=== PATIENT | female | born 1980 | race American Indian/Alaskan Native ===

== ENCOUNTER 2016-12-08 13:35 | Emergency (ER) | payer MEDICAID ==
[2016-12-08 14:08] VITALS: BMI 32.8
--- NOTE | 2016-12-08 15:03 | C.PDOC ---
History Of Present Illness 36 yr old female presents to the ER with complaints of a cough with white yellow sputum, generalized weakness, sore throat, runny nose, body aches and headache for the past 5 days. Patient is also complaining of right knee pain for the past 5 days which is worse when climbing stairs. Patient reports she started taking Clindamycin which was left over and is now having multiple episode of watery diarrhea. Patient denies fever, chills, chest pain, SOB, nausea, vomiting, abdominal pain, back pain, dysuria or hematuria. Time Seen by Provider: 12/08/16 14:02 Chief Complaint (Nursing): Cough, Cold, Congestion History Per: Patient History/Exam Limitations: no limitations Onset/Duration Of Symptoms: Days (5) Location Of Pain: Diffuse Myalgias, Headache Sick Contacts (Context): Family Member(s) Past Medical History Reviewed: Historical Data, Nursing Documentation, Vital Signs Vital Signs: Last Vital Signs Temp 98.4 F 12/08/16 16:09 Pulse 58 L 12/08/16 16:09 Resp 18 12/08/16 16:09 BP 132/84 12/08/16 16:09 Pulse Ox 98 12/08/16 16:09 - Medical History PMH: Anxiety, Asthma, Gastritis, Gall Bladder Disease Surgical History: Cholecystectomy, Endoscopy, Tonsillectomy, ( Myomectomy) - [facility] Procedures DRAINAGE OF PERINEUM SKIN, EXTERNAL APPROACH (04/19/16) EXCISION OF UTERUS, OPEN APPROACH (04/19/16) Family History: States: No Known Family Hx - Social History Hx Tobacco Use: Yes Hx Alcohol Use: No Hx Substance Use: No - Immunization History Hx Tetanus Toxoid Vaccination: No Hx Influenza Vaccination: No Hx Pneumococcal Vaccination: No Review Of Systems Except As Marked, All Systems Reviewed And Found Negative. Constitutional: Positive for: Weakness (generlized ). Negative for: Fever, Chills ENT: Positive for: Nose Discharge, Throat Pain (sore throat ) Cardiovascular: Negative for: Chest Pain Respiratory: Positive for: Cough, Sputum (white yellow sputum). Negative for: Shortness of Breath Gastrointestinal: Positive for: Diarrhea (multiple episodes of watery diarrhea) . Negative for: Nausea, Vomiting, Abdominal Pain Genitourinary: Negative for: Dysuria, Hematuria Musculoskeletal: Positive for: Other ((+) Right knee pain ) Neurological: Positive for: Headache Physical Exam - Physical Exam Appears: Non-toxic, Other (Looks uncomfortable) Skin: Warm, Dry, No Rash Head: Atraumatic, Normacephalic Eye(s): bilateral: Normal Inspection, PERRL Ear(s): Left: TM Obscured By Wax, Right: Other (Wax in canal. TM is clear) Nose: Normal Oral Mucosa: Moist Throat: Normal, No Erythema, No Exudate Neck: Normal, Normal ROM, Supple Chest: Symmetrical, No Tenderness Cardiovascular: Rhythm Regular, No Murmur Respiratory: Normal Breath Sounds, No Rales, No Rhonchi, No Stridor, No Wheezing Extremity: Tenderness (Right Knee - Tenderness to the medial aspects. Full ROM. ), No Calf Tenderness, No Deformity, No Swelling Pulses: Left Dorsalis Pedis: Normal, Right Dorsalis Pedis: Normal Neurological/Psych: Oriented x3, Normal Speech, Normal Motor ED Course And Treatment O2 Sat by Pulse Oximetry: 96 Medical Decision Making Medical Decision Making: PLAN: * POC Urine * * nsaids knee immobilizer Disposition Counseled Patient/Family Regarding: Diagnosis, Need For Followup, Rx Given - Disposition Disposition: HOME/ ROUTINE Disposition Time: 16:33 Condition: GOOD Prescriptions: Naproxen 500 mg PO BID #30 tab Instructions: Upper Respiratory Infection (ED), Knee Pain (ED) Forms: General Discharge Instructions - Clinical Impression Clinical Impression: Upper respiratory infection, Sprain of right knee - 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 - Scribe Statement The provider has reviewed the documentation as recorded by the Scribe Ariela Gunderson All medical record entries made by the Odalisibradha were at my direction and personally dictated by me. I have reviewed the chart and agree that the record accurately reflects my personal performance of the history, physical exam, medical decision making, and the department course for this patient. I have also personally directed, reviewed, and agree with the discharge instructions and disposition.
[2016-12-08] MEDS ORDERED: Naproxen 550 mg Tab PO STA (15:47)
[2016-12-08] MEDS ORDERED: Naproxen 550 mg Tab PO ONE (16:02)
[2016-12-08 16:10] VITALS: BP 132/84; PULSE 58; RESP 18; TEMP 98.4
[2016-12-08 16:32] VITALS: O2SAT 96
== END 2016-12-08 16:49 | disposition home or self-care (01) ==
LOC: C.ER 13:35
DX: J06.9 Acute upper respiratory infection, unspecified (principal); Z72.0 Tobacco use; S83.91XA Sprain of unspecified site of right knee, initial encounter; X58.XXXA Exposure to other specified factors, initial encounter; Y93.9 Activity, unspecified; Y92.9 Unspecified place or not applicable

== ENCOUNTER 2017-03-23 10:53 | Emergency (ER) | payer MEDICAID ==
[2017-03-23 10:53] VITALS: BMI 32.8
[2017-03-23 11:10] VITALS: RESP 20
--- NOTE | 2017-03-23 11:27 | C.PDOC ---
History Of Present Illness 36 y/o female c/o diffuse back pain on right side that feels like pressure; started last night in mid back and radiates up and down back and to middle. pain is worse with movement. pt denies any falls, injury, heavy lifting. pt denies fever and chills, denies abdominal pain, no urinary symptoms. no chest pain, not sob, but painful to take a deep breath. no ocp, no prolonged immobilization, no recent surgery, no leg pain, denies numbness, tingling and weakness, no bladder or bowel dysfunction, no saddle anesthesia. . Time Seen by Provider: 03/23/17 11:08 Chief Complaint (Nursing): Back Pain History Per: Patient History/Exam Limitations: no limitations Onset/Duration Of Symptoms: Days (1) Current Symptoms Are (Timing): Worse Quality Of Discomfort: Pressure Severity: Moderate Associated Symptoms: denies: Incontinence, New Weakness, New Numbness Exacerbating Factor(s): Movement, Sitting Past Medical History Reviewed: Historical Data, Nursing Documentation, Vital Signs Vital Signs: Last Vital Signs Temp 98.9 F 03/23/17 14:08 Pulse 55 L 03/23/17 14:08 Resp 20 03/23/17 14:08 BP 115/76 03/23/17 14:08 Pulse Ox 100 03/23/17 21:39 - Medical History PMH: Anxiety, Asthma, Gastritis, Gall Bladder Disease Denies: Chronic Kidney Disease Surgical History: Cholecystectomy, Endoscopy, Tonsillectomy, ( Myomectomy) Other Surgeries: myomectomy - [facility] Procedures DRAINAGE OF PERINEUM SKIN, EXTERNAL APPROACH (04/19/16) EXCISION OF UTERUS, OPEN APPROACH (04/19/16) Family History: States: Unknown Family Hx - Social History Hx Tobacco Use: Yes Hx Alcohol Use: No Hx Substance Use: No - Immunization History Hx Tetanus Toxoid Vaccination: No Hx Influenza Vaccination: No Hx Pneumococcal Vaccination: No Review Of Systems Constitutional: Negative for: Fever, Chills Cardiovascular: Negative for: Chest Pain Respiratory: Positive for: Other (increased back pain with respiration). Negative for: Cough, Shortness of Breath Gastrointestinal: Positive for: Other (last bm yesterday). Negative for: Nausea , Vomiting, Abdominal Pain Genitourinary: Negative for: Dysuria, Frequency, Incontinence Musculoskeletal: Positive for: Shoulder Pain, Back Pain Skin: Negative for: Rash Neurological: Negative for: Weakness, Numbness Physical Exam - Physical Exam Appears: Other (overweight female in painful distress, crying. ) Skin: Warm, Dry Head: Atraumatic, Normacephalic Neck: Normal ROM, No Midline Cervical Tenderness, Supple Chest: Symmetrical, No Deformity, No Tenderness Cardiovascular: Rhythm Regular, No Murmur Respiratory: Normal Breath Sounds, No Rales, No Rhonchi, No Wheezing Gastrointestinal/Abdominal: Soft, No Tenderness Back: Normal Inspection, Paraspinal Tenderness, Other (entire right side backend python developer, most in thoracic and lumbar area; tender paraspinal area and rhomboid area. 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 pain worse with movement,. will order more analgesics. 145 pm pt with more relief after percocet, able to stand up, some residual lower back pain. will d/c home with naproxen and flexeril. Disposition Counseled Patient/Family Regarding: Diagnosis, Need For Followup, Rx Given - Disposition Referrals: [facility] [Outside] [facility] [Outside] Disposition: HOME/ ROUTINE Disposition Time: 13:46 Condition: IMPROVED Additional Instructions: Thank you for letting us take care of you today. Your provider was Nataly MENDOZA. You were treated for muscle spasm and back pain. The emergency medical care you received today was directed at your acute symptoms. If you were prescribed any medication, please fill it and take as directed. It may take several days for your symptoms to resolve. Return to the Emergency Department if your symptoms worsen, do not improve, or if you have any other problems. Please contact your doctor or call one of the physicians/clinics you have been referred to that are listed on the Patient Visit Information form that is included in your discharge packet. Bring any paperwork you were given at discharge with you along with any medications you are taking to your follow up visit. Our treatment cannot replace ongoing medical care by a primary care provider (PCP) outside of the emergency department. Thank you for allowing the [facility] team to be part of your care today. Prescriptions: Cyclobenzaprine [Cyclobenzaprine HCl] 10 mg PO Q8 #9 tab Ibuprofen [Motrin] 600 mg PO TID #30 tab Instructions: Acute Low Back Pain (ED), Muscle Spasm (ED) Forms: General Discharge Instructions - Clinical Impression Clinical Impression: Low back pain, Muscle spasm of back
[2017-03-23 12:07] LABS: RBC URINE 2 /hpf (0-3); URINE BILIRUBIN NEGATIVE (NEGATIVE); URINE BLOOD NEGATIVE (NEGATIVE); URINE COLOR Yellow (YELLOW); URINE GLUCOSE (UA) NORMAL (Normal); URINE KETONE NEGATIVE (NEGATIVE); URINE LEUKOCYTE ESTERASE NEG Leu/uL (Negative); URINE PROTEIN NEGATIVE (NEGATIVE); URINE UROBILINOGEN NORMAL mg/dL (0.2-1.0); WBC URINE 1 /hpf (0-5)
[2017-03-23] MEDS ORDERED: Oxycodone/Acetaminophen 5/325 mg Tab PO STA (12:37)
[2017-03-23] MEDS ORDERED: Oxycodone/Acetaminophen 5/325 mg Tab ONE (12:45)
[2017-03-23 14:09] VITALS: BP 115/76; PULSE 55; TEMP 98.9
[2017-03-23 21:40] VITALS: O2SAT 100
== END 2017-03-23 14:11 | disposition home or self-care (01) ==
LOC: C.ER 10:53
DX: M62.830 Muscle spasm of back (principal); M54.5 Low back pain
CPT/HCPCS: 81001; 96372; 99284; J1885

== ENCOUNTER 2017-08-22 17:06 | Inpatient (IN) | payer MEDICAID ==
[2017-08-22 17:07] VITALS: BMI 32.8
[2017-08-22 18:07] LABS: BASO # 0.1 K/uL (0.0-0.2); BASO % 0.5 % (0.0-2.0); EOS % 0.1 % (0.0-4.0); HEMATOCRIT 37.3 % (34.0-47.0); LYMPH # 1.3 K/uL (1.0-4.3); LYMPH % 12.6 % (20.0-40.0); MEAN CORPUSCULAR HEMOGLOBIN 31.5 pg (27.0-31.0); MEAN CORPUSCULAR HGB CONC 33.5 g/dL (33.0-37.0); MEAN PLATELET VOLUME 7.8 fL (7.2-11.7); MONO # 0.3 K/uL (0.0-0.8); MONO % 2.6 % (0.0-10.0); RED CELL DISTRIBUTION WIDTH 13.2 % (11.5-14.5); WHITE BLOOD COUNT 10.7 K/uL (4.8-10.8)
[2017-08-22 18:16] LABS: ALB/GLOB RATIO 1.3 (1.0-2.1); ALKALINE PHOSPHATASE 52 U/L (38-126); ALT/SGPT 30 U/L (9-52); AST/SGOT 20 U/L (14-36); BILIRUBIN,TOTAL 0.6 mg/dL (0.2-1.3); BLOOD UREA NITROGEN 13 mg/dL (7-17); CALCIUM 8.8 mg/dl (8.6-10.4); CARBON DIOXIDE 22 mmol/L (22-30); CHLORIDE 101 mmol/L (98-107); GFR AFRICAN-AMERICAN > 60; GLUCOSE,RANDOM 109 mg/dL (65-105); POTASSIUM 3.2 mmol/L (3.6-5.2); SODIUM 132 mmol/L (132-148); TOTAL PROTEIN 7.7 g/dL (6.3-8.3)
[2017-08-22] MEDS ORDERED: Albuterol 0.083% Inhal Sol (2.5 mg/3 mL) UD IH STA (18:29)
[2017-08-22] MEDS ORDERED: Albuterol 0.083% Inhal Sol (2.5 mg/3 mL) UD ONE (18:36)
--- NOTE | 2017-08-22 18:52 | C.PDOC ---
History Of Present Illness <Suri Norman - Last Filed: 08/22/17 19:07> <Denys Scott - Last Filed: 08/22/17 21:23> 37 y/o female with PMHx of Asthma and anxiety presents to ED with complaints of sob, cough, fever, chills, and body aches for 1 week. Notes she had cough for two weeks, went to see her PMD last week, had RLL PNA and given Levaquin. Symptoms persists prompting ED visit. (Suri Norman) History Per: Patient History/Exam Limitations: no limitations Onset/Duration Of Symptoms: Days Current Symptoms Are (Timing): Still Present <Suri Norman - Last Filed: 08/22/17 19:07> <Denys Scott - Last Filed: 08/22/17 21:23> Time Seen by Provider: 08/22/17 17:42 Chief Complaint (Nursing): Shortness Of Breath Past Medical History Reviewed: Historical Data, Nursing Documentation, Vital Signs - Medical History PMH: Anxiety, Asthma, Gastritis, Gall Bladder Disease Surgical History: Cholecystectomy, Endoscopy, Tonsillectomy, ( Myomectomy) Family History: States: No Known Family Hx - Social History Hx Tobacco Use: Yes Hx Alcohol Use: No Hx Substance Use: No - Immunization History Hx Tetanus Toxoid Vaccination: No Hx Influenza Vaccination: No Hx Pneumococcal Vaccination: No <Suri Norman - Last Filed: 08/22/17 19:07> Vital Signs: Last Vital Signs Temp 98.3 F 08/22/17 17:14 Pulse 96 H 08/22/17 20:07 Resp 20 08/22/17 20:07 BP 123/78 08/22/17 20:07 Pulse Ox 100 08/22/17 20:07 - [facility] Procedures DRAINAGE OF PERINEUM SKIN, EXTERNAL APPROACH (04/19/16) EXCISION OF UTERUS, OPEN APPROACH (04/19/16) Review Of Systems Constitutional: Positive for: Fever Respiratory: Positive for: Cough, Shortness of Breath Gastrointestinal: Negative for: Nausea, Vomiting Skin: Negative for: Rash Neurological: Negative for: Weakness, Numbness <Suri Norman - Last Filed: 08/22/17 19:07> Physical Exam - Physical Exam Appears: Non-toxic, Other (Acute respiratory distress) Skin: Normal Color, Warm, Dry, No Rash Head: Atraumatic, Normacephalic Eye(s): bilateral: Normal Inspection, EOMI Oral Mucosa: Moist Neck: Normal ROM, Supple Chest: Symmetrical Cardiovascular: Rhythm Regular Respiratory: Decreased Breath Sounds, No Rales, No Rhonchi, No Wheezing, Other ( Tachypneic) Gastrointestinal/Abdominal: Soft, No Tenderness, No Guarding, No Rebound Neurological/Psych: Oriented x3, Normal Speech (Speaking in full sentences) <Suri Norman - Last Filed: 08/22/17 19:07> ED Course And Treatment - Laboratory Results Result Diagrams: 08/22/17 18:00 08/22/17 18:00 O2 Sat by Pulse Oximetry: 99 (RA) Pulse Ox Interpretation: Normal - Radiology CXR: Interpreted by Me, Viewed By Me CXR Interpretation: Yes: No Acute Disease Progress Note: Case endorsed to Dr Scott, agreed upon plan and treatment. <Suri Norman - Last Filed: 08/22/17 19:07> - Laboratory Results Result Diagrams: 08/22/17 18:00 08/22/17 18:00 - CT Scan/US Chest Other Rad Studies (CT/US): Read By Radiologist CT/US Interpretation: IMPRESSION: No pulmonary embolism or other acute finding in the chest. 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 - Scribe Statement The provider has reviewed the documentation as recorded by the Scribe <Suri Norman - Last Filed: 08/22/17 19:07> <Denys Scott - Last Filed: 08/22/17 21:23> - Scribe Statement Cammy Vazquez All medical record entries made by the Scribe were at my direction and personally dictated by me. I have reviewed the chart and agree that the record accurately reflects my personal performance of the history, physical exam, medical decision making, and the department course for this patient. I have also personally directed, reviewed, and agree with the discharge instructions and disposition. (Suri Norman)
[2017-08-22 18:53] LABS: RBC URINE 1 /hpf (0-3); URINE BACTERIA RARE (<OCC); URINE BILIRUBIN NEGATIVE (NEGATIVE); URINE BLOOD NEGATIVE (NEGATIVE); URINE COLOR Yellow (YELLOW); URINE GLUCOSE (UA) NORMAL (Normal); URINE KETONE NEGATIVE (NEGATIVE); URINE PROTEIN 1+ mg/dL (NEGATIVE); URINE UROBILINOGEN NORMAL mg/dL (0.2-1.0); WBC URINE 3 /hpf (0-5)
[2017-08-22 18:55] LABS: URINE LEUKOCYTE ESTERASE NEG Leu/uL (Negative)
[2017-08-22] MEDS ORDERED: Potassium Chloride 20 mEq ER Tab PO STA (18:57)
[2017-08-22] MEDS ORDERED: Azithromycin 500mg/250ML NS 500 MG/250 ML BAG IV ONE (19:15)
[2017-08-22] MEDS ORDERED: Enoxaparin 40 mg Syringe SC STA (19:20)
[2017-08-22] MEDS ORDERED: Iodixanol 320 mg/ml 150 ml Bottle IV ONE (19:43)
[2017-08-22] MEDS ORDERED: Potassium Chloride 20 mEq ER Tab PO ONE ×2 (19:44→19:57)
[2017-08-22] MEDS ORDERED: Enoxaparin 100 mg Syringe SC STA (19:49)
[2017-08-22] MEDS ORDERED: Albuterol-Ipratrop 3 mg / 0.5 (3 ml) UD ONE (22:26)
[2017-08-23] MEDS ORDERED: Albuterol-Ipratrop 3 mg / 0.5 (3 ml) UD ONE ×5 (00:07→15:46)
[2017-08-23] MEDS: Albuterol-Ipratrop 3 mg / 0.5 (3 ml) UD INH SCH ×5 (00:12→15:45)
--- NOTE | 2017-08-23 08:22 | RAD ---
HISTORY: SOB COMPARISON: 04/27/2016 TECHNIQUE: Chest PA and lateral FINDINGS: LUNGS: No active pulmonary disease. PLEURA: No significant pleural effusion identified. No pneumothorax apparent. CARDIOVASCULAR: Normal. OSSEOUS STRUCTURES: No significant abnormalities. VISUALIZED UPPER ABDOMEN: Normal. OTHER FINDINGS: None. IMPRESSION: No active disease.
--- NOTE | 2017-08-23 09:17 | CT ---
PROCEDURE: CT Chest with contrast (Pulmonary Angiogram) HISTORY: sob COMPARISON: None available. TECHNIQUE: Axial computed tomography images were obtained of the chest in the pulmonary arterial phase of enhancement. Coronal and sagittal reformatted images were created and reviewed. Intravenous contrast dose: 100 mL Visipaque 320 Radiation dose: Total exam DLP = 512.28 mGy-cm. This CT exam was performed using one or more of the following dose reduction techniques: Automated exposure control, adjustment of the mA and/or kV according to patient size, and/or use of iterative reconstruction technique. FINDINGS: PULMONARY ARTERIES: Unremarkable. No pulmonary embolism. AORTA: No acute findings. No thoracic aortic aneurysm. LUNGS: Unremarkable. No nodule, mass or pulmonary consolidation. PLEURAL SPACES: Unremarkable. No effusion or pneuomothorax. HEART: Unremarkable. No cardiomegaly. No significant pericardial effusion. LYMPH NODES: No lymphadenopathy. BONES, CHEST WALL: Unremarkable. No fracture or destructive lesion OTHER FINDINGS: Status post cholecystectomy. IMPRESSION: Unremarkable CT pulmonary angiogram. No pulmonary embolus. Preliminary interpretation of this examination was reported by [facility] at 9:19 p.m. on 08/22/2017. There is concurrence of this report with the preliminary interpretation.
[2017-08-23 09:22] LABS: BASO % 0.1 % (0.0-2.0); EOS % 0.1 % (0.0-4.0); HEMATOCRIT 33.5 % (34.0-47.0); LYMPH # 0.9 K/uL (1.0-4.3); LYMPH % 8.4 % (20.0-40.0); MEAN CELL VOLUME 93.8 fL (81.0-99.0); MEAN CORPUSCULAR HEMOGLOBIN 31.9 pg (27.0-31.0); MONO # 0.4 K/uL (0.0-0.8); MONO % 3.7 % (0.0-10.0); PLATELET COUNT 290 K/uL (130-400); RED CELL DISTRIBUTION WIDTH 13.3 % (11.5-14.5); WHITE BLOOD COUNT 10.8 K/uL (4.8-10.8)
[2017-08-23 09:35] LABS: ALB/GLOB RATIO 0.9 (1.0-2.1); ALKALINE PHOSPHATASE 47 U/L (38-126); ALT/SGPT 29 U/L (9-52); AST/SGOT 12 U/L (14-36); BILIRUBIN,TOTAL 0.3 mg/dL (0.2-1.3); BLOOD UREA NITROGEN 9 mg/dL (7-17); CALCIUM 8.4 mg/dl (8.6-10.4); CARBON DIOXIDE 21 mmol/L (22-30); CHLORIDE 106 mmol/L (98-107); GFR AFRICAN-AMERICAN > 60; GLUCOSE,RANDOM 99 mg/dL (65-105); POTASSIUM 3.6 mmol/L (3.6-5.2); SODIUM 132 mmol/L (132-148); TOTAL PROTEIN 7.7 g/dL (6.3-8.3)
[2017-08-23 09:43] LABS: NEUTROPHIL 86 % (50-75); TOTAL CELLS COUNTED 100
[2017-08-23] MEDS: Azithromycin 500 MG in Sodium Chloride 0.9% 250 ML IVPB SCH (10:36)
[2017-08-23] MEDS: Enoxaparin 40 mg Syringe SC SCH (10:36)
[2017-08-23 13:45] VITALS: RESP 20
--- NOTE | 2017-08-23 17:12 | CP.PCM.PN ---
Subjective - Date & Time of Evaluation Date of Evaluation: 08/23/17 Time of Evaluation: 10:00 - Subjective Subjective: PGY3 on medicine Dr. Diehl service: 37F PMhx astham and anxiety compalins SOB, cough, generalized body pain and fever for the past week. Pt said she went to PMD last week and received Levaquin for a week without relief. Patient said she did not receive flu shot and smokes 6 cigarettes a day for past 16 years. Patient had gallbladder removed in 1998 and fibroid removed in 2015. Currently pt complains of generalized body pain and feeling anxious about her condition. Objective - Vital Signs/Intake and Output Vital Signs (last 24 hours): Temp Pulse Resp BP Pulse Ox 97.9 F 74 20 104/55 L 100 08/23/17 06:43 08/23/17 15:45 08/23/17 13:44 08/23/17 13:44 08/23/17 13:44 - Medications Medications: Current Medications Acetaminophen (Tylenol 325mg Tab) 650 mg PO Q4 [facility] Last Admin: 08/23/17 12:56 Dose: Not Given Albuterol/Ipratropium (Duoneb 3 Mg/0.5 Mg (3 Ml) Ud) 3 ml INH RQ4 [facility] Last Admin: 08/23/17 15:45 Dose: 3 ml Alprazolam (Xanax) 0.5 mg PO Q12 [facility] Last Admin: 08/23/17 10:15 Dose: 0.5 mg Enoxaparin Sodium (Lovenox) 40 mg SC DAILY [facility] Last Admin: 08/23/17 10:36 Dose: 40 mg Azithromycin 500 mg/ Sodium (Chloride) 250 mls @ 250 mls/hr IVPB DAILY [facility] Last Admin: 08/23/17 10:36 Dose: 250 mls/hr Ondansetron HCl (Zofran Inj) 4 mg IVP Q8 PRN PRN Reason: Nausea/Vomiting Oseltamivir Phosphate (Tamiflu Cap) 75 mg PO BID [facility] Stop: 08/27/17 22:02 Last Admin: 08/23/17 10:36 Dose: 75 mg Tramadol HCl (Ultram) 50 mg PO TID PRN PRN Reason: Pain, moderate (4-7) Last Admin: 08/23/17 12:11 Dose: 50 mg Zolpidem Tartrate (Ambien) 5 mg PO HS PRN PRN Reason: Insomnia - Labs Labs: 08/23/17 09:16 08/23/17 09:16 - Constitutional Appears: Non-toxic, No Acute Distress - Head Exam Head Exam: NORMOCEPHALIC - Eye Exam Eye Exam: Normal appearance Pupil Exam: NORMAL ACCOMODATION - Respiratory Exam Respiratory Exam: Decreased Breath Sounds, NORMAL BREATHING PATTERN. absent: Wheezes - Cardiovascular Exam Cardiovascular Exam: REGULAR RHYTHM, +S1, +S2 - GI/Abdominal Exam GI & Abdominal Exam: Soft, Normal Bowel Sounds - Neurological Exam Neurological Exam: Alert, Awake, Oriented x3 - Psychiatric Exam Psychiatric exam: Anxious - Skin Skin Exam: Intact Assessment and Plan - Assessment and Plan (Free Text) Assessment: Pneumonia/possible influenza Chest CT and xray negative for acute disease. Zithromax 500mg IV daily started 08/23. Tamiflu 75mg PO BID started 08/23. Duoneb q4. F/U flu. F/U cultures. Hx of anxiety Continue home med: Xanax 0.5mg PO q12H. Prophylactic measure Lovenox, pepcid, SCD. Management as per Dr. Diehl.
[2017-08-23] MEDS ORDERED: Enoxaparin 40 mg Syringe SC ONE (22:00)
[2017-08-24] MEDS: Albuterol-Ipratrop 3 mg / 0.5 (3 ml) UD INH SCH ×5 (01:42→16:03)
--- NOTE | 2017-08-24 06:06 | HP ---
HISTORY OF PRESENT ILLNESS: Ms. Walker is a 37-year-old female admitted to the hospital with complaint of weakness, fatigue, tiredness, body aches, fever. The patient came to the ER, advised admission, possible nausea, weakness, body aches. PHYSICAL EXAMINATION: GENERAL: The patient is awake, alert. VITAL SIGNS: Temperature 101, pulse is 90. HEENT: Normal limit. NECK: Supple. CHEST: Symmetrical. HEART: Regular. ABDOMEN: Soft. EXTREMITIES: No edema. IMPRESSION: The patient suffers atypical pneumonia, possible flu. . bedrest, IV antibiotic. Tamiflu. Viviane Diehl MD
[2017-08-24 08:06] LABS: BASO % 0.3 % (0.0-2.0); EOS % 0.2 % (0.0-4.0); HEMATOCRIT 32.6 % (34.0-47.0); LYMPH # 3.9 K/uL (1.0-4.3); LYMPH % 40.9 % (20.0-40.0); MEAN CORPUSCULAR HEMOGLOBIN 31.8 pg (27.0-31.0); MEAN CORPUSCULAR HGB CONC 33.2 g/dL (33.0-37.0); MEAN PLATELET VOLUME 8.7 fL (7.2-11.7); MONO # 0.6 K/uL (0.0-0.8); MONO % 5.8 % (0.0-10.0); NRBC % 0.1 % (0.0-2.0); RED CELL DISTRIBUTION WIDTH 13.5 % (11.5-14.5); WHITE BLOOD COUNT 9.6 K/uL (4.8-10.8)
[2017-08-24 08:14] LABS: MEAN CELL VOLUME 95.8 fL (81.0-99.0)
[2017-08-24 08:25] LABS: ALB/GLOB RATIO 1.2 (1.0-2.1); ALKALINE PHOSPHATASE 39 U/L (38-126); ALT/SGPT 28 U/L (9-52); AST/SGOT 11 U/L (14-36); BILIRUBIN,TOTAL 0.4 mg/dL (0.2-1.3); BLOOD UREA NITROGEN 14 mg/dL (7-17); CALCIUM 7.8 mg/dl (8.6-10.4); CARBON DIOXIDE 25 mmol/L (22-30); CHLORIDE 108 mmol/L (98-107); GFR AFRICAN-AMERICAN > 60; GLUCOSE,RANDOM 88 mg/dL (65-105); POTASSIUM 3.9 mmol/L (3.6-5.2); SODIUM 139 mmol/L (132-148); TOTAL PROTEIN 5.7 g/dL (6.3-8.3)
--- NOTE | 2017-08-24 09:08 | CP.PCM.PN ---
Subjective - Date & Time of Evaluation Date of Evaluation: 08/24/17 Time of Evaluation: 10:00 - Subjective Subjective: Dr. Diehl note: Patient seen and examined in room. She is complaining of coughing up clear sputum no fever or chills but is very anxious. Objective - Vital Signs/Intake and Output Vital Signs (last 24 hours): Temp Pulse Resp BP Pulse Ox 98 F 63 20 110/70 97 08/24/17 08:01 08/24/17 08:01 08/24/17 08:01 08/24/17 08:01 08/24/17 08:01 Intake and Output: 08/24/17 08/24/17 06:59 18:59 Intake Total 350 Balance 350 - Medications Medications: Current Medications Acetaminophen (Tylenol 325mg Tab) 650 mg PO Q4 PRN PRN Reason: FOR PAIN Albuterol/Ipratropium (Duoneb 3 Mg/0.5 Mg (3 Ml) Ud) 3 ml INH RQ4 [facility] Last Admin: 08/24/17 07:31 Dose: Not Given Alprazolam (Xanax) 0.5 mg PO Q12 [facility] Last Admin: 08/23/17 21:05 Dose: 0.5 mg Enoxaparin Sodium (Lovenox) 40 mg SC DAILY [facility] Last Admin: 08/23/17 10:36 Dose: 40 mg Famotidine (Pepcid) 20 mg PO BID [facility] Last Admin: 08/23/17 19:07 Dose: 20 mg Azithromycin 500 mg/ Sodium (Chloride) 250 mls @ 250 mls/hr IVPB DAILY [facility] Last Admin: 08/23/17 10:36 Dose: 250 mls/hr Ondansetron HCl (Zofran Inj) 4 mg IVP Q8 PRN PRN Reason: Nausea/Vomiting Oseltamivir Phosphate (Tamiflu Cap) 75 mg PO BID [facility] Stop: 08/27/17 22:02 Last Admin: 08/23/17 19:07 Dose: 75 mg Tramadol HCl (Ultram) 50 mg PO TID PRN PRN Reason: Pain, moderate (4-7) Last Admin: 08/23/17 12:11 Dose: 50 mg Zolpidem Tartrate (Ambien) 5 mg PO HS PRN PRN Reason: Insomnia Last Admin: 08/24/17 01:15 Dose: 5 mg - Labs Labs: 08/24/17 07:54 08/24/17 07:54 - Constitutional Appears: Non-toxic, No Acute Distress - Eye Exam Eye Exam: Normal appearance - Respiratory Exam Respiratory Exam: Clear to Ausculation Bilateral. absent: Rales, Rhonchi, Wheezes - Cardiovascular Exam Cardiovascular Exam: REGULAR RHYTHM, RRR, +S1, +S2. absent: Gallop, Rubs - GI/Abdominal Exam GI & Abdominal Exam: Soft, Normal Bowel Sounds. absent: Tenderness - Extremities Exam Extremities Exam: Normal Inspection. absent: Pedal Edema - Back Exam Back Exam: NORMAL INSPECTION - Psychiatric Exam Psychiatric exam: Normal Affect, Normal Mood - Skin Skin Exam: Normal Color Assessment and Plan - Assessment and Plan (Free Text) Assessment: Pneumonia/possible influenza 08/24: Patient discharged home with Z-pack, Tamiflu, medrol dose pack, duoneb and Robitussin for cough. She will need to see her PMD for follow next week. Chest CT and xray negative for acute disease. Zithromax 500mg IV daily started 08/23. Tamiflu 75mg PO BID started 08/23. Duoneb q4. F/U flu. F/U cultures. Hx of anxiety Continue home med: Xanax 0.5mg PO q12H. Prophylactic measure Lovenox, pepcid, SCD. Management as per Dr. Diehl.
[2017-08-24] MEDS: Enoxaparin 40 mg Syringe SC SCH (10:01)
[2017-08-24] MEDS ORDERED: Acetylcysteine 20% Inhal Soln (4ml) INH STA (10:15)
[2017-08-24] MEDS ORDERED: Albuterol-Ipratrop 3 mg / 0.5 (3 ml) UD INH STA (10:15)
[2017-08-24] MEDS: Azithromycin 500 MG in Sodium Chloride 0.9% 250 ML IVPB SCH (10:48)
[2017-08-24 17:02] VITALS: BP 109/72; PULSE 76; TEMP 98.2; O2SAT 99
== END 2017-08-24 18:58 | disposition home or self-care (01) | DRG 90 ==
LOC: C.ER 17:06 → C.9E 19:16 → C.3T 08-23 19:30
PROVIDERS: ADMIT Internal Medicine Pulmonary Disease; ATTEND Internal Medicine Pulmonary Disease
DX: J11.00 Influenza due to unidentified influenza virus with unspecified type of pneumonia (principal); J45.901 Unspecified asthma with (acute) exacerbation; F41.9 Anxiety disorder, unspecified; Z90.49 Acquired absence of other specified parts of digestive tract

== ENCOUNTER 2017-11-20 14:53 | Emergency (ER) | payer SELFPAY ==
[2017-11-20 14:54] VITALS: BMI 32.8
[2017-11-20] MEDS ORDERED: Sodium Chloride 0.9% 1,000 ML IV ONE (16:23)
[2017-11-20] MEDS ORDERED: DiphenhydrAMINE 50 mg/ml Inj IVP STA ×2 (16:32→19:25)
[2017-11-20] MEDS ORDERED: Sodium Chloride 0.9% 1,000 ML ONE (16:42)
[2017-11-20] MEDS ORDERED: DiphenhydrAMINE 50 mg/ml Inj ONE ×2 (16:42→19:36)
[2017-11-20] MEDS ORDERED: Morphine 4 MG/ML VIAL ONE ×2 (16:42→18:21)
[2017-11-20 16:50] LABS: BASO % 0.7 % (0.0-2.0); EOS # 0.1 K/uL (0.0-0.7); EOS % 2.3 % (0.0-4.0); HCG,QUALITATIVE URINE NEGATIVE (NEGATIVE); HEMOGLOBIN 12.7 g/dL (11.0-16.0); LYMPH # 2.6 K/uL (1.0-4.3); LYMPH % 45.5 % (20.0-40.0); MEAN CELL VOLUME 92.6 fL (81.0-99.0); MEAN CORPUSCULAR HEMOGLOBIN 31.9 pg (27.0-31.0); MEAN CORPUSCULAR HGB CONC 34.4 g/dL (33.0-37.0); MONO # 0.5 K/uL (0.0-0.8); MONO % 8.3 % (0.0-10.0); NEUT # 2.5 K/uL (1.8-7.0); NEUT % 43.2 % (50.0-75.0); RBC 3.99 Mil/uL (3.80-5.20); RED CELL DISTRIBUTION WIDTH 13.5 % (11.5-14.5); WHITE BLOOD COUNT 5.8 K/uL (4.8-10.8)
[2017-11-20 16:57] LABS: SQUAMOUS EPITHIAL 2 /hpf (0-5); URINE BACTERIA RARE (<OCC); URINE BILIRUBIN NEGATIVE (NEGATIVE); URINE BLOOD NEGATIVE (NEGATIVE); URINE CLARITY Clear (Clear); URINE COLOR Straw (YELLOW); URINE GLUCOSE (UA) NORMAL (Normal); URINE NITRATE NEGATIVE (NEGATIVE); URINE PROTEIN NEGATIVE (NEGATIVE); URINE UROBILINOGEN NORMAL mg/dL (0.2-1.0)
[2017-11-20 16:59] LABS: URINE LEUKOCYTE ESTERASE NEGATIVE Leu/uL (Negative)
[2017-11-20 17:01] LABS: ALBUMIN 4.2 g/dL (3.5-5.0); CALCIUM 9.1 mg/dl (8.6-10.4); GFR AFRICAN-AMERICAN > 60; GFR NON-AFRICAN AMERICAN > 60; LIPASE 104 U/L (23-300)
[2017-11-20 17:11] LABS: ALT/SGPT 32 U/L (9-52); AST/SGOT 24 U/L (14-36); BLOOD UREA NITROGEN 8 mg/dL (7-17)
--- NOTE | 2017-11-20 17:40 | C.PDOC ---
History Of Present Illness 37-year-old female presents to the ED for evaluation of nausea, vomiting, diarrhea and abdominal pain which began on 11/14. Patient was evaluated by her PMD, Dr. Diehl, yesterday and was prescribed Zofran and Protonix. Patient has been taking the medicine without relief. Patient admits to experiencing prior episode of same symptoms several years ago and was able to find relief from Protonix PO. Patient's last endoscopy was 5 years ago. She denies fever, chills , dysuria, hematuria. Time Seen by Provider: 11/20/17 15:53 Chief Complaint (Nursing): GI Problem History Per: Patient History/Exam Limitations: no limitations Onset/Duration Of Symptoms: Days Current Symptoms Are (Timing): Still Present Severity: Moderate Location Of Pain/Discomfort: Diffuse Quality Of Discomfort: "Pain" Associated Symptoms: Nausea, Vomiting, Diarrhea. denies: Fever, Chills, Urinary Symptoms Additional History Per: Patient Abnormal Vaginal Bleeding: No Past Medical History Reviewed: Historical Data, Nursing Documentation, Vital Signs Vital Signs: Last Vital Signs Temp 98.4 F 11/20/17 15:00 Pulse 58 L 11/20/17 18:13 Resp 16 11/20/17 18:13 BP 114/72 11/20/17 18:13 Pulse Ox 100 11/20/17 18:13 - Medical History PMH: Anxiety, Asthma, Gastritis, Gall Bladder Disease Surgical History: Cholecystectomy, Endoscopy, Tonsillectomy, ( Myomectomy) - [facility] Procedures DRAINAGE OF PERINEUM SKIN, EXTERNAL APPROACH (04/19/16) EXCISION OF UTERUS, OPEN APPROACH (04/19/16) Family History: States: No Known Family Hx - Social History Hx Tobacco Use: Yes Hx Alcohol Use: No Hx Substance Use: No - Immunization History Hx Tetanus Toxoid Vaccination: No Hx Influenza Vaccination: No Hx Pneumococcal Vaccination: No Review Of Systems Except As Marked, All Systems Reviewed And Found Negative. Constitutional: Negative for: Fever, Chills Cardiovascular: Negative for: Chest Pain, Palpitations Respiratory: Negative for: Shortness of Breath Gastrointestinal: Positive for: Nausea, Vomiting, Abdominal Pain, Diarrhea Genitourinary: Negative for: Dysuria, Hematuria Skin: Negative for: Rash Physical Exam - Physical Exam Appears: Well, Non-toxic, Other (uncomfortable, in moderate pain, actively vomiting ) Skin: Normal Color, Warm, Dry, No Rash Head: Normacephalic Eye(s): bilateral: Normal Inspection Oral Mucosa: Moist Neck: Supple Cardiovascular: Rhythm Regular Respiratory: Normal Breath Sounds, No Rales, No Rhonchi, No Wheezing Gastrointestinal/Abdominal: Bowel Sounds, Soft, Tenderness (to epigastric and right periumbilical areas, (-) McBurney's, (-) Mtz's), No Guarding, No Rebound Back: No CVA Tenderness Extremity: Normal ROM Neurological/Psych: Oriented x3 ED Course And Treatment - Laboratory Results Result Diagrams: 11/20/17 16:44 11/20/17 16:44 O2 Sat by Pulse Oximetry: 99 (on RA) Pulse Ox Interpretation: Normal Progress Note: Bloodwork, UA and CT scan abd/pelvis ordered and reviewed. Patient given IV NS bolus, IV morphine, IV Zofran, IV Benadryl. Disposition - Disposition Disposition Time: 19:00 Condition: STABLE Forms: [employer] (Egyptian) - Clinical Impression Clinical Impression: Abdominal pain, Nausea and vomiting, Diarrhea - Scribe Statement The provider has reviewed the documentation as recorded by the Scribe (Megan Patel) Provider Attestation: All medical record entries made by the Scribe were at my direction and personally dictated by me. I have reviewed the chart and agree that the record accurately reflects my personal performance of the history, physical exam, medical decision making, and the department course for this patient. I have also personally directed, reviewed, and agree with the discharge instructions and disposition. Physician Patient Turnover Patient Signed Over To: Denys Scott Handoff Comments: patient pending reeval, CT scan abd/pelvis
[2017-11-20] MEDS ORDERED: Iohexol 300 100 ML IJ ONE (18:08)
--- NOTE | 2017-11-20 19:40 | CT ---
EXAM: CT Abdomen and Pelvis With Intravenous Contrast EXAM DATE/TIME: Exam ordered 11/20/2017 5:31 PM CLINICAL HISTORY: 37 years old, female; Pain; Abdominal pain; Localized; Right lower quadrant (rlq); Prior surgery; Surgery date: 6+ months; Surgery type: Cholecystectomy/uterine fibroid removal; Patient HX: H/o cholecystectomy/uterine fibroid removal; Additional info: Abdominal pain, vomiting, diarrhea TECHNIQUE: Axial computed tomography images of the abdomen and pelvis with intravenous contrast. All CT scans at this facility use one or more dose reduction techniques, viz.: automated exposure control; ma/kV adjustment per patient size (including targeted exams where dose is matched to indication; i.e. head); or iterative reconstruction technique. Coronal and sagittal reformatted images were created and reviewed. CONTRAST: 100 mL of omnipaque 300 administered intravenously. COMPARISON: CT - ABD PELVIS IV CONTRAST ONLY 2016-04-25 05:37 FINDINGS: Lower thorax: No acute findings. ABDOMEN: Liver: Unremarkable. No mass. Gallbladder and bile ducts: Surgical clips are noted in the gallbladder fossa. The gallbladder is absent. No ductal dilation. Pancreas: Unremarkable. No mass. No ductal dilation. Spleen: Unremarkable. No splenomegaly. Adrenals: Unremarkable. No mass. Kidneys and ureters: Unremarkable. No solid mass. No hydronephrosis. Stomach and bowel: Unremarkable. No obstruction. No mucosal thickening. Appendix: No findings to suggest acute appendicitis. PELVIS: Bladder: Unremarkable. No mass. Reproductive: Unremarkable as visualized. ABDOMEN and PELVIS: Intraperitoneal space: There's a trace amount of free fluid in the posterior cul-de-sac. Abdominal pain vomiting and diarrhea. A surgical clip is noted in the mid abdominal cavity anteriorly. This may be a dropped clip from cholecystectomy. No free air. No significant fluid collection. Bones/joints: No acute fracture. No dislocation. Soft tissues: Unremarkable. Vasculature: Unremarkable. No abdominal aortic aneurysm. Lymph nodes: Unremarkable. No enlarged lymph nodes. IMPRESSION: No acute findings. No evidence of appendicitis
[2017-11-20 19:59] VITALS: BP 114/79; PULSE 68; RESP 18; O2SAT 98
[2017-11-20 20:12] VITALS: TEMP 98
== END 2017-11-20 20:20 | disposition home or self-care (01) ==
LOC: C.ER 14:53
DX: R19.7 Diarrhea, unspecified (principal); R11.2 Nausea with vomiting, unspecified; R10.9 Unspecified abdominal pain; Z72.0 Tobacco use
CPT/HCPCS: 74177; 80053; 81001; 83690; 84703; 85025; 96361; 96374; 96375; 96376; 99285; C9113; J1200; J2270; J2405; J2930; J7040; Q9967

== ENCOUNTER 2018-01-07 09:13 | Inpatient (IN) | payer BC ==
[2018-01-07] MEDS ORDERED: Bupivacaine HCl 0.25% PF (30 ml) Inj ONE (12:46)
[2018-01-07] MEDS ORDERED: Lidocaine/Epinephrine 1% 1:100000 10 ML IJ ONE (12:46)
[2018-01-07] MEDS ORDERED: Doxycycline 100 mg Inj ONE (12:46)
[2018-01-07] MEDS ORDERED: Propofol 10 mg/ml Inj (20 ML) ONE ×2 (12:48→13:04)
[2018-01-07] MEDS ORDERED: Midazolam 2 MG/2 ML VIAL ONE ×2 (12:48→13:14)
[2018-01-07] MEDS ORDERED: Albuterol 0.083% Inhal Sol (2.5 mg/3 mL) UD ONE (13:39)
[2018-01-07] MEDS: Morphine 4 MG/ML VIAL IVP PRN ×2 (14:22→16:31)
[2018-01-07] MEDS ORDERED: Lactated Ringer's 1,000 ML IV ONE ×2 (14:50)
[2018-01-07] MEDS: Albuterol 0.042% Inhal Sol (1.25 mg/3 mL) UD INH SCH (17:34)
[2018-01-07] MEDS: Oxycodone/Acetaminophen 5/325 mg Tab PO PRN (19:18)
[2018-01-07] MEDS: Dextrose 5%/0.45% NS 1,000 ML IV SCH (20:00)
[2018-01-08] MEDS: Albuterol 0.042% Inhal Sol (1.25 mg/3 mL) UD INH SCH ×4 (01:18→19:26)
[2018-01-08] MEDS: Oxycodone/Acetaminophen 5/325 mg Tab PO PRN ×5 (01:19→22:02)
[2018-01-08] MEDS ORDERED: DiphenhydrAMINE 50 mg/ml Inj IVP STA (03:13)
[2018-01-08] MEDS: Dextrose 5%/0.45% NS 1,000 ML IV SCH ×3 (06:11→15:10)
--- NOTE | 2018-01-08 06:38 | OP ---
PROCEDURE DATE: 01/07/2018 PREOPERATIVE DIAGNOSIS: Bilateral infected groin masses. POSTOPERATIVE DIAGNOSIS: Bilateral infected groin masses. PROCEDURE PERFORMED: Wide and deep excision, bilateral infected groin masses (5 cm) with adjacent tissue transfer closure. SURGEON: Nitish Siddiqui MD ANESTHESIA: Local with sedation. ESTIMATED BLOOD LOSS: 30 mL. POSTOPERATIVE CONDITION: Stable. INDICATIONS FOR SURGERY This is a 37-year-old female with bilateral infected groin masses who presents for elective wide deep excision after antibiotic treatment. DESCRIPTION OF PROCEDURE: The patient was taken to the operating room. IV sedation was administered. Both groins were prepped and draped. Attention was first turned to the right groin, and a generous elliptical incision was made surrounding the mass. The mass was excised into the fascia and removed. Bleeding was controlled using the Bovie. A larger pelvic blood vessel was repaired. The wound was irrigated with saline solution. Generous advancement flaps were raised using the Bovie including full-thickness flaps and counter incisions were made and an advancement flap closure greater than 30 sq cm was performed using multiple layers of Monocryl, subcuticular Monocryl, and glue. The above was repeated on the left side. The patient tolerated the procedure well. Returned to recovery room in stable condition. Nitish Siddiqui MD
[2018-01-08 07:27] LABS: BASO % 0.7 % (0.0-2.0); EOS # 0.1 K/uL (0.0-0.7); EOS % 2.1 % (0.0-4.0); HEMOGLOBIN 9.9 g/dL (11.0-16.0); LYMPH # 2.9 K/uL (1.0-4.3); LYMPH % 52.1 % (20.0-40.0); MEAN CELL VOLUME 93.7 fL (81.0-99.0); MEAN CORPUSCULAR HEMOGLOBIN 32.7 pg (27.0-31.0); MEAN CORPUSCULAR HGB CONC 34.9 g/dL (33.0-37.0); MEAN PLATELET VOLUME 8.1 fL (7.2-11.7); MONO # 0.4 K/uL (0.0-0.8); MONO % 7.6 % (0.0-10.0); NEUT # 2.1 K/uL (1.8-7.0); NEUT % 37.5 % (50.0-75.0); RBC 3.02 Mil/uL (3.80-5.20); RED CELL DISTRIBUTION WIDTH 13.6 % (11.5-14.5); WHITE BLOOD COUNT 5.7 K/uL (4.8-10.8)
--- NOTE | 2018-01-08 07:39 | CP.PCM.PN ---
Subjective - Date & Time of Evaluation Date of Evaluation: 01/08/18 Time of Evaluation: 07:39 - Subjective Subjective: PGY 2 Med Note- Dr. Diehl's service 37 year old female with past medical history significant for asthma and anxiety presents with complaints of recurrent groin abscesses. Patient states that she keeps having recurrent abscesses and thus came in for surgical intervention. Patient states that she had an I and D performed yesterday by Surgeon, Dr. Siddiqui. She states that the affected area is tender to touch. She will have another I and D procedure performed today. PMHx- as states above PSHx- I and Ds, tonsillectomy, cholecycstectomy,myomectomy, breast reduction surgery Fam Hx- Sister with Lupus Meds- PPI, Hydroxyzine, Zyrtec, Dulera, Albuterol PRN Social hx- admits to social alcohol use, former smoker, denies illicit drug use Allergies- denies Objective - Vital Signs/Intake and Output Vital Signs (last 24 hours): Temp Pulse Resp BP Pulse Ox 98.1 F 64 18 127/79 97 01/07/18 20:23 01/08/18 01:20 01/07/18 20:23 01/07/18 20:23 01/07/18 20:23 Intake and Output: 01/08/18 01/08/18 06:59 18:59 Intake Total 3080 Output Total 200 Balance 2880 - Medications Medications: Current Medications Albuterol Sulfate (Albuterol 0.042% Inhal Magdalena (1.25mg/3ml) Ud) 1.25 mg INH RQ6 [facility] Last Admin: 01/08/18 01:18 Dose: 1.25 mg Docusate Sodium (Colace) 100 mg PO BID [facility] Last Admin: 01/07/18 20:58 Dose: Not Given Enoxaparin Sodium (Lovenox) 40 mg SC DAILY [facility] Dextrose/Sodium Chloride (Dextrose 5%/0.45% Ns 1000 Ml) 1,000 mls @ 80 mls/hr IV .[id number] [facility] Last Admin: 01/08/18 06:12 Dose: 80 mls/hr Doxycycline Hyclate 100 mg/ (Sodium Chloride) 100 mls @ 100 mls/hr IVPB Q12H [facility] PRN Reason: Protocol Last Admin: 01/08/18 01:09 Dose: 100 mls/hr Ondansetron HCl (Zofran Inj) 4 mg IVP Q6 PRN PRN Reason: Nausea/Vomiting Oxycodone/Acetaminophen (Percocet 5/325 Mg Tab) 2 tab PO Q4H PRN PRN Reason: pain Stop: 01/10/18 13:26 Last Admin: 01/08/18 07:33 Dose: 2 tab Pantoprazole Sodium (Protonix Inj) 40 mg IVP DAILY [facility] Zolpidem Tartrate (Ambien) 10 mg PO HS PRN PRN Reason: Insomnia Last Admin: 01/07/18 22:10 Dose: 10 mg - Labs Labs: 01/08/18 07:10 - Constitutional Appears: Non-toxic, No Acute Distress - Head Exam Head Exam: ATRAUMATIC, NORMAL INSPECTION - Eye Exam Eye Exam: EOMI, PERRL Pupil Exam: NORMAL ACCOMODATION - ENT Exam ENT Exam: Mucous Membranes Moist - Neck Exam Neck Exam: Full ROM - Respiratory Exam Respiratory Exam: NORMAL BREATHING PATTERN - Cardiovascular Exam Cardiovascular Exam: +S1, +S2 - GI/Abdominal Exam GI & Abdominal Exam: Soft, Normal Bowel Sounds - Exam Additional comments: dressing c/d/i bilaterally in groin region - Extremities Exam Extremities Exam: Full ROM - Back Exam Back Exam: Full ROM - Neurological Exam Neurological Exam: Alert, Awake - Psychiatric Exam Psychiatric exam: Normal Affect, Normal Mood - Skin Skin Exam: Dry, Warm Assessment and Plan - Assessment and Plan (Free Text) Assessment: Hidradenitis suppurativa Patient to the OR today for I and D Pain control per Surgery F/U surgery recommendations Encourage nutrition Wound care nursing management Asthma Medicine consult for medical management Albuterol as needed Prophylactic Measure Lovenox PPI SCDs Encourage ambulation
[2018-01-08 08:17] LABS: BLOOD UREA NITROGEN 7 mg/dL (7-17); CALCIUM 8.3 mg/dl (8.6-10.4); GFR AFRICAN-AMERICAN > 60; GFR NON-AFRICAN AMERICAN > 60
[2018-01-08] MEDS: DiphenhydrAMINE 50 mg/ml Inj IVP PRN ×3 (09:56→23:43)
[2018-01-08] MEDS: Enoxaparin 40 mg Syringe SC SCH (11:03)
[2018-01-08] MEDS ORDERED: Propofol 10 mg/ml Inj (20 ML) ONE (15:22)
[2018-01-08] MEDS ORDERED: Midazolam 2 MG/2 ML VIAL ONE (15:22)
[2018-01-08] MEDS ORDERED: Bupivacaine HCl 0.25% PF (30 ml) Inj ONE (15:49)
[2018-01-08] MEDS ORDERED: DiphenhydrAMINE 50 mg/ml Inj IVP PRN (16:10)
[2018-01-08] MEDS ORDERED: Morphine 4 MG/ML VIAL IVP PRN (16:10)
[2018-01-08] MEDS ORDERED: Morphine 4 MG/ML VIAL ONE (16:13)
[2018-01-08 17:57] VITALS: RESP 20
--- NOTE | 2018-01-09 00:44 | OP ---
PROCEDURE DATE: 01/08/2018 PREOPERATIVE DIAGNOSIS: Bilateral groin infected masses. POSTOPERATIVE DIAGNOSIS: Bilateral groin infected masses. PROCEDURE: Wide and deep excision, bilateral groin infected masses (5 cm in size). SURGEON: Nitish Siddiqui MD TYPE OF ANESTHESIA: General. ESTIMATED BLOOD LOSS: 30 mL. POSTOPERATIVE CONDITION: Stable. INDICATIONS FOR SURGERY: This is a 37-year-old female who is undergoing staged excisions of several infected masses of groin and vaginal region. He is taken back to the operating room today for excision of two masses near her vagina. DESCRIPTION OF PROCEDURE: The patient was taken to the operating room. General anesthesia was administered. She was placed in a lithotomy position. The pelvic area was prepped and draped. Both masses were marked. A generous elliptical incision was made in the right pelvic mass. The mass was dissected into the fascia and removed. Bleeding was controlled using Bovie. A full-thickness tissue flap was raised and advancement flap closures were performed after making counter incisions using multiple layers of Monocryl and subcuticular Monocryl, and the glue. The above was repeated on the left side. The patient tolerated the procedure well. Returned to recovery room in stable condition. Nitish Siddiqui MD
[2018-01-09] MEDS: Albuterol 0.042% Inhal Sol (1.25 mg/3 mL) UD INH SCH ×2 (01:50→07:45)
[2018-01-09] MEDS: Oxycodone/Acetaminophen 5/325 mg Tab PO PRN ×2 (03:40→08:10)
[2018-01-09] MEDS ORDERED: DiphenhydrAMINE 50 mg/ml Inj IVP STA (05:01)
[2018-01-09 06:54] LABS: BASO % 0.5 % (0.0-2.0); LYMPH # 1.3 K/uL (1.0-4.3); LYMPH % 13.8 % (20.0-40.0); MEAN CELL VOLUME 93.5 fL (81.0-99.0); MEAN CORPUSCULAR HEMOGLOBIN 31.6 pg (27.0-31.0); MEAN CORPUSCULAR HGB CONC 33.8 g/dL (33.0-37.0); MEAN PLATELET VOLUME 7.8 fL (7.2-11.7); MONO # 0.5 K/uL (0.0-0.8); MONO % 5.7 % (0.0-10.0); NEUT # 7.7 K/uL (1.8-7.0); RBC 3.46 Mil/uL (3.80-5.20); RED CELL DISTRIBUTION WIDTH 13.7 % (11.5-14.5); WHITE BLOOD COUNT 9.6 K/uL (4.8-10.8)
--- NOTE | 2018-01-09 07:07 | CP.PCM.PN ---
Subjective - Date & Time of Evaluation Date of Evaluation: 01/09/18 Time of Evaluation: 08:00 - Subjective Subjective: PGY 2 Med Note- Dr. Diehl's service Patient was seen and examined at bedside this morning. Patient is with mild discomfit at I/D site, otherwise no complaints at this time. Objective - Vital Signs/Intake and Output Vital Signs (last 24 hours): Temp Pulse Resp BP Pulse Ox 98.0 F 73 20 122/73 97 01/08/18 23:49 01/08/18 23:49 01/08/18 23:49 01/08/18 23:49 01/08/18 23:49 - Medications Medications: Current Medications Albuterol Sulfate (Albuterol 0.042% Inhal Magdalena (1.25mg/3ml) Ud) 1.25 mg INH RQ6 [facility] Last Admin: 01/09/18 01:50 Dose: Not Given Diphenhydramine HCl (Benadryl) 25 mg IVP Q6 PRN PRN Reason: Itching / Pruritus Last Admin: 01/08/18 23:43 Dose: 25 mg Docusate Sodium (Colace) 100 mg PO BID [facility] Last Admin: 01/08/18 17:51 Dose: 100 mg Enoxaparin Sodium (Lovenox) 40 mg SC DAILY [facility] Last Admin: 01/08/18 11:03 Dose: Not Given Ondansetron HCl (Zofran Inj) 4 mg IVP Q6 PRN PRN Reason: Nausea/Vomiting Oxycodone/Acetaminophen (Percocet 5/325 Mg Tab) 2 tab PO Q4H PRN PRN Reason: pain Stop: 01/10/18 13:26 Last Admin: 01/09/18 03:40 Dose: 2 tab Pantoprazole Sodium (Protonix Inj) 40 mg IVP DAILY [facility] Last Admin: 01/08/18 10:59 Dose: 40 mg Pneumococcal Polyvalent Vaccine (Pneumovax 23 Vaccine) 0.5 ml IM .ONCE ONE Stop: 01/11/18 10:01 Zolpidem Tartrate (Ambien) 10 mg PO HS PRN PRN Reason: Insomnia Last Admin: 01/08/18 22:49 Dose: 10 mg - Labs Labs: 01/09/18 06:40 01/08/18 07:10 - Constitutional Appears: Non-toxic, No Acute Distress - Head Exam Head Exam: ATRAUMATIC, NORMAL INSPECTION - Eye Exam Eye Exam: EOMI Pupil Exam: NORMAL ACCOMODATION - ENT Exam ENT Exam: Mucous Membranes Moist - Respiratory Exam Respiratory Exam: Clear to Ausculation Bilateral, NORMAL BREATHING PATTERN. absent: Respiratory Distress - Cardiovascular Exam Cardiovascular Exam: REGULAR RHYTHM, +S1, +S2 - GI/Abdominal Exam GI & Abdominal Exam: Soft, Normal Bowel Sounds. absent: Distended, Firm, Guarding, Tenderness - Exam Additional comments: dressing c/d/i bilaterally in groin region - Extremities Exam Extremities Exam: Normal Inspection. absent: Calf Tenderness, Pedal Edema - Back Exam Back Exam: NORMAL INSPECTION. absent: CVA tenderness (L), CVA tenderness (R), paraspinal tenderness - Neurological Exam Neurological Exam: Alert, Awake, CN II-XII Intact, Oriented x3 - Skin Skin Exam: Normal Color Assessment and Plan - Assessment and Plan (Free Text) Assessment: Hidradenitis suppurativa S/p ID with Dr. Hall Pain control per Surgery F/U surgery recommendations Encourage nutrition Wound care nursing management Asthma Medicine consult for medical management Albuterol as needed Prophylactic Measure Lovenox PPI SCDs Encourage ambulation All management per Dr. Diehl.
[2018-01-09 07:25] LABS: BLOOD UREA NITROGEN 10 mg/dL (7-17); CALCIUM 9.1 mg/dl (8.6-10.4); GFR AFRICAN-AMERICAN > 60; GFR NON-AFRICAN AMERICAN > 60
--- NOTE | 2018-01-09 07:35 | CON ---
DATE: HISTORY OF PRESENT ILLNESS: A 37-year-old female with chief complaint of bilateral hidradenitis with an inguinal hernia. The patient admitted by Dr. Siddiqui. The patient has jaundice, diabetes, hypertension. The patient has history of recurrent multiple episodes of hidradenitis. PHYSICAL EXAMINATION: GENERAL: The patient is awake, alert, and oriented. VITAL SIGNS: Temperature 98, pulse 90. HEENT: Within normal limits. NECK: Supple. CHEST: Symmetrical. HEART: Regular. ABDOMEN: Soft with bilateral dressing from surgery. EXTREMITIES: No edema. IMPRESSION: Hidradenitis. The patient on IV antibiotics. The patient will follow up for incision and drainage of abscesses. Viviane Diehl MD
[2018-01-09 08:36] VITALS: BP 119/66; PULSE 70; TEMP 98.3; O2SAT 100
[2018-01-09] MEDS: Enoxaparin 40 mg Syringe SC SCH (10:55)
[2018-01-09] MEDS: DiphenhydrAMINE 50 mg/ml Inj IVP PRN (11:02)
[2018-01-11] MEDS ORDERED: Pneumococcal 23-Valent Vaccine IM ONE (10:00)
== END 2018-01-09 12:08 | disposition home or self-care (01) | DRG 580 ==
LOC: C.SDS 09:13 → C.9E 13:25 → C.9S 14:06 → C.3T 20:08
PROVIDERS: ADMIT Surgery; ATTEND Surgery
PROC: 0Y950ZZ Drainage of Right Inguinal Region, Open Approach (ICD-10-PCS; 2018-01-07)
PROC: 0Y960ZZ Drainage of Left Inguinal Region, Open Approach (ICD-10-PCS; principal; 2018-01-07 11:00)
PROC: 0Y960ZZ Drainage of Left Inguinal Region, Open Approach (ICD-10-PCS; 2018-01-08)
PROC: 0Y950ZZ Drainage of Right Inguinal Region, Open Approach (ICD-10-PCS; 2018-01-08)
DX: L73.2 Hidradenitis suppurativa (principal); R17 Unspecified jaundice; L02.214 Cutaneous abscess of groin; E11.9 Type 2 diabetes mellitus without complications; I10 Essential (primary) hypertension; J45.909 Unspecified asthma, uncomplicated; K40.20 Bilateral inguinal hernia, without obstruction or gangrene, not specified as recurrent; Z87.891 Personal history of nicotine dependence; F41.9 Anxiety disorder, unspecified; L72.0 Epidermal cyst

== ENCOUNTER 2018-01-10 10:49 | Emergency (ER) | payer BC ==
[2018-01-10 10:50] VITALS: BMI 32.8
[2018-01-10 11:06] VITALS: O2SAT 100
[2018-01-10] MEDS ORDERED: DiphenhydrAMINE 50 mg/ml Inj IVP STA ×2 (11:24→13:53)
[2018-01-10] MEDS ORDERED: DiphenhydrAMINE 50 mg/ml Inj ONE ×2 (11:41→14:11)
[2018-01-10 11:53] VITALS: RESP 18
--- NOTE | 2018-01-10 12:26 | C.PDOC ---
History Of Present Illness 37 y/o female s/p I&D by Dr. 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 Patient was given Doxycycline, last dose was yesterday and currently denies fever, chest pain, sob or any other complaints at this time. Time Seen by Provider: 01/10/18 11:13 Chief Complaint (Nursing): Allergic Reaction History Per: Patient History/Exam Limitations: no limitations Onset/Duration Of Symptoms: Days Current Symptoms Are (Timing): Still Present Possible Cause: Unknown Past Medical History Reviewed: Historical Data, Nursing Documentation, Vital Signs Vital Signs: Last Vital Signs Temp 98.5 F 01/10/18 13:32 Pulse 56 L 01/10/18 13:32 Resp 18 01/10/18 13:32 BP 109/67 01/10/18 13:32 Pulse Ox 100 01/10/18 13:32 - Medical History PMH: Anxiety, Asthma, Gastritis, Gall Bladder Disease, Pneumonia (MID. 2016 ) Surgical History: Cholecystectomy, Endoscopy, Tonsillectomy, ( Myomectomy) - [facility] Procedures DRAINAGE OF PERINEUM SKIN, EXTERNAL APPROACH (04/19/16) EXCISION OF UTERUS, OPEN APPROACH (04/19/16) Family History: States: No Known Family Hx - Social History Hx Tobacco Use: Yes Hx Alcohol Use: Yes (occasional) Hx Substance Use: No - Immunization History Hx Tetanus Toxoid Vaccination: Yes Hx Influenza Vaccination: No Hx Pneumococcal Vaccination: No Review Of Systems Except As Marked, All Systems Reviewed And Found Negative. Constitutional: Negative for: Fever, Chills Cardiovascular: Negative for: Chest Pain Respiratory: Negative for: Shortness of Breath Skin: Positive for: Rash Physical Exam - Physical Exam Appears: Non-toxic, Other (Anxious, speaking in full sentences) Skin: Warm, Dry, Rash (Diffuse maculopapular to extremities and torso nonvesicular) Head: Atraumatic, Normacephalic Eye(s): bilateral: Normal Inspection Oral Mucosa: Moist Throat: Normal, No Erythema, No Exudate, No Drooling Neck: Normal ROM, Supple Cardiovascular: Rhythm Regular Respiratory: Normal Breath Sounds, No Rales, No Rhonchi, No Wheezing Gastrointestinal/Abdominal: Soft, No Tenderness, No Guarding, No Rebound Extremity: Normal ROM, Capillary Refill (<2 seconds) Neurological/Psych: Oriented x3, Normal Speech ED Course And Treatment O2 Sat by Pulse Oximetry: 100 (RA) Pulse Ox Interpretation: Normal Progress Note: IV fluids, Benadryl, Pepcid and Solumedrol administered. Pending re eval Disposition Counseled Patient/Family Regarding: Diagnosis, Need For Followup, Rx Given - Disposition Referrals: Melissa Diehl MD [Medical Doctor] - Disposition: HOME/ ROUTINE Disposition Time: 15:10 Condition: STABLE Prescriptions: Alprazolam [Xanax] 0.5 mg PO Q8 PRN #10 tab PRN Reason: Anxiety predniSONE [predniSONE Tab] 40 mg PO DAILY #6 tab Instructions: Hives (DC) Forms: [employer] (E[place]ian) Print Language: HEBREW - Clinical Impression Clinical Impression: Allergic reaction, Hives - Scribe Statement The provider has reviewed the documentation as recorded by the Scribradha Vazquez All medical record entries made by the Scribe were at my direction and personally dictated by me. I have reviewed the chart and agree that the record accurately reflects my personal performance of the history, physical exam, medical decision making, and the department course for this patient. I have also personally directed, reviewed, and agree with the discharge instructions and disposition.
[2018-01-10 13:33] VITALS: BP 109/67; PULSE 56; TEMP 98.5
== END 2018-01-10 15:47 | disposition home or self-care (01) ==
LOC: C.ER 10:49
DX: T78.40XA Allergy, unspecified, initial encounter (principal); L50.9 Urticaria, unspecified; Z72.0 Tobacco use
CPT/HCPCS: 96374; 96375; 96376; 99285; J1200; J2930

== ENCOUNTER 2018-03-04 10:57 | Inpatient (IN) | payer BC ==
[2018-03-04 10:57] VITALS: BMI 32.8
[2018-03-04 11:43] LABS: MEAN CELL VOLUME 93.4 fL (81.0-99.0); MEAN CORPUSCULAR HEMOGLOBIN 31.7 pg (27.0-31.0); MEAN CORPUSCULAR HGB CONC 33.9 g/dL (33.0-37.0); MEAN PLATELET VOLUME 8.2 fL (7.2-11.7); RBC 3.48 Mil/uL (3.80-5.20); RED CELL DISTRIBUTION WIDTH 14.2 % (11.5-14.5); WHITE BLOOD COUNT 5.5 K/uL (4.8-10.8)
[2018-03-04 11:49] LABS: SQUAMOUS EPITHIAL 1 /hpf (0-5); URINE BACTERIA RARE (<OCC); URINE BILIRUBIN NEGATIVE (NEGATIVE); URINE BLOOD NEGATIVE (NEGATIVE); URINE CLARITY Clear (Clear); URINE COLOR Straw (YELLOW); URINE GLUCOSE (UA) NORMAL (Normal); URINE LEUKOCYTE ESTERASE NEG Leu/uL (Negative); URINE PROTEIN NEGATIVE (NEGATIVE); URINE UROBILINOGEN NORMAL mg/dL (0.2-1.0)
[2018-03-04 12:00] LABS: ALB/GLOB RATIO 1.3 (1.0-2.1); ALBUMIN 4.1 g/dL (3.5-5.0); ALT/SGPT 15 U/L (9-52); AST/SGOT 24 U/L (14-36); BLOOD UREA NITROGEN 10 mg/dL (7-17); CALCIUM 8.8 mg/dl (8.6-10.4); GFR AFRICAN-AMERICAN > 60; GFR NON-AFRICAN AMERICAN > 60
[2018-03-04] MEDS ORDERED: Acetaminophen IV 1,000 MG in Premixed IV 1 EA IV ONE (12:29)
[2018-03-04] MEDS: Sodium Chloride 0.9% 1,000 ML IV SCH ×2 (12:30→22:14)
[2018-03-04] MEDS ORDERED: Sodium Chloride 0.9% 1,000 ML ONE (12:36)
--- NOTE | 2018-03-04 12:36 | C.PDOC ---
History Of Present Illness 37 y/o female presents to ED with complaints of painful right groin abscess. Patient states she called Dr. Siddiqui who told her to come to ED for admission for I&D procedure. Patient states she has been NPO since last night and reports 101 fever yesterday, resolved with Motrin. Patient denies nausea, vomiting, chest pain, sob or any other complaints at this time. Time Seen by Provider: 03/04/18 11:37 Chief Complaint (Nursing): Abnormal Skin Integrity History Per: Patient History/Exam Limitations: no limitations Onset/Duration Of Symptoms: Days Current Symptoms Are (Timing): Still Present Past Medical History Reviewed: Historical Data, Nursing Documentation, Vital Signs Vital Signs: Last Vital Signs Temp 97.6 F 03/04/18 18:00 Pulse 74 03/04/18 18:00 Resp 20 03/04/18 18:00 BP 121/78 03/04/18 18:00 Pulse Ox 96 03/04/18 19:08 - Medical History PMH: Anxiety, Asthma, Gastritis, Gall Bladder Disease, Pneumonia (MID. 2016 ) Surgical History: Cholecystectomy, Endoscopy, Tonsillectomy, ( Myomectomy) - [facility] Procedures DRAINAGE OF LEFT INGUINAL REGION, OPEN APPROACH (01/07/18) DRAINAGE OF PERINEUM SKIN, EXTERNAL APPROACH (04/19/16) DRAINAGE OF RIGHT INGUINAL REGION, OPEN APPROACH (01/07/18) EXCISION OF UTERUS, OPEN APPROACH (04/19/16) Family History: States: No Known Family Hx - Social History Hx Tobacco Use: Yes Hx Alcohol Use: Yes (occasional) Hx Substance Use: No - Immunization History Hx Tetanus Toxoid Vaccination: Yes Hx Influenza Vaccination: No Hx Pneumococcal Vaccination: No Review Of Systems Constitutional: Negative for: Fever, Chills Cardiovascular: Negative for: Chest Pain Respiratory: Negative for: Shortness of Breath Gastrointestinal: Negative for: Nausea, Vomiting Physical Exam - Physical Exam Appears: Non-toxic, No Acute Distress Skin: Warm, Dry, No Rash Head: Atraumatic, Normacephalic Eye(s): bilateral: Normal Inspection Oral Mucosa: Moist Neck: Normal ROM, Supple Cardiovascular: Rhythm Regular Respiratory: Normal Breath Sounds, No Rales, No Rhonchi, No Wheezing Gastrointestinal/Abdominal: Soft, No Tenderness, No Guarding, No Rebound, Other (swelling and tenderness 3x1cm area to right inguinal area) Pelvic: Other (small 5 mm firm mass in mons pubis left side, minute pustules to left inguinal area) Extremity: No Deformity Neurological/Psych: Oriented x3, Normal Speech, Normal Cognition ED Course And Treatment - Laboratory Results Result Diagrams: 03/04/18 11:35 03/04/18 11:35 O2 Sat by Pulse Oximetry: 96 (RA) Medical Decision Making Medical Decision Making: discussed with Dr Siddiqui, will go to or at 230p. requests med admission to Dr Powell and id consult Dr Gastelum. 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 - Scribe Statement The provider has reviewed the documentation as recorded by the Odalisibradha Vazquez All medical record entries made by the Odalisibradha were at my direction and personally dictated by me. I have reviewed the chart and agree that the record accurately reflects my personal performance of the history, physical exam, medical decision making, and the department course for this patient. I have also personally directed, reviewed, and agree with the discharge instructions and disposition.
[2018-03-04] MEDS ORDERED: MOMETASONE IH PRN (12:56)
[2018-03-04] MEDS ORDERED: FORMOTEROL IH PRN (12:56)
--- NOTE | 2018-03-04 13:03 | CP.PCM.PN ---
Subjective - Date & Time of Evaluation Date of Evaluation: 03/04/18 Time of Evaluation: 13:00 - Subjective Subjective: Progress note. Attending: Dr. Diehl Pt seen and examined at bedside. Pt is a 37 yo female with hx of DM, HTN, hiadradenitis, presenting today with chief complaint of groin pain/abscess. Per patient, she called Dr. Siddiqui who has operated on her in the past. DR told her to come to hospital and that he would perform sx on her today. She had fever of 101 yesterday and used motrin. She is in significant pain today. She has hx of multiple abscesses, hiadradenitis, used to get them around her breasts. Now they appear around her groin. PMH: DM, HTN, hiadradenitis PSH: tonsillectomy, myomectomy, cholecystectomy, I/D Allergies: ciprofloxacin, PCN, bactrim FH: lupus in family Social hx: current smoker. 1 pack per week. social drinker. denies drug use. Objective - Vital Signs/Intake and Output Vital Signs (last 24 hours): Temp Pulse Resp BP Pulse Ox 98.5 F 80 18 115/70 96 03/04/18 11:05 03/04/18 11:05 03/04/18 11:05 03/04/18 11:05 03/04/18 12:49 - Medications Medications: Current Medications Albuterol/Ipratropium (Duoneb 3 Mg/0.5 Mg (3 Ml) Ud) 3 ml INH Q6 ROGERIO Alprazolam (Xanax) 0.5 mg PO Q8 PRN PRN Reason: Anxiety Dicyclomine HCl (Bentyl) 10 mg PO Q6 [facility] Home Med (Levocetirizine Dihydrochloride [Xyzal]) 5 mg PO DAILY [facility] Home Med (Mometasone/Formoterol [Dulera 200 Mcg/5 Mcg Inhaler]) 1 puff IH BID PRN PRN Reason: Shortness of Breath Sodium Chloride (Sodium Chloride 0.9%) 1,000 mls @ 100 mls/hr IV .Q10H ROGERIO Pantoprazole Sodium (Protonix Inj) 40 mg IVP DAILY ROGERIO - Labs Labs: 03/04/18 11:35 03/04/18 11:35 PT 11.0 SECONDS (9.7-12.2) 03/04/18 11:35 INR 1.0 03/04/18 11:35 APTT 33 SECONDS (21-34) 03/04/18 11:35 - Constitutional Appears: Non-toxic - Head Exam Head Exam: ATRAUMATIC, NORMAL INSPECTION, NORMOCEPHALIC - Eye Exam Eye Exam: EOMI - ENT Exam ENT Exam: Mucous Membranes Moist - Respiratory Exam Respiratory Exam: NORMAL BREATHING PATTERN. absent: Respiratory Distress - Cardiovascular Exam Cardiovascular Exam: +S1, +S2 - GI/Abdominal Exam GI & Abdominal Exam: Soft, Normal Bowel Sounds. absent: Tenderness - Exam Exam: absent: NORMAL INSPECTION Additional comments: pt with groin abscess/hiadradenitis right groin, extremely tender to palpation, no drainage currently - Extremities Exam Extremities Exam: Full ROM, Normal Inspection - Back Exam Back Exam: NORMAL INSPECTION - Neurological Exam Neurological Exam: Alert, Awake, Oriented x3 - Psychiatric Exam Psychiatric exam: Normal Affect, Normal Mood - Skin Skin Exam: Dry, Intact, Normal Color, Warm Assessment and Plan - Assessment and Plan (Free Text) Assessment: This is a 37 yo female with 1. Hiadradenitis suppartiva/groin abscess -OR today with Artur. -ID consult. Dr. Gastelum. recs appreciated. -NS -tylenol for fever -starting IV vancomycin 2. Hx of DM -check HGB a1c 3. hx of HTN -continue to monitor 4. hx of asthma -duonebs 5. GI/DVT ppx -scds -protonix daily -discussed with Dr. Diehl.
[2018-03-04] MEDS ORDERED: Succinylcholine Chloride 20 mg/ml Syr (5 ml) IV ONE (15:38)
[2018-03-04] MEDS ORDERED: Propofol 10 mg/ml Inj (20 ML) ONE (15:38)
[2018-03-04] MEDS ORDERED: DiphenhydrAMINE 50 mg/ml Inj IVP PRN (16:48)
[2018-03-04] MEDS ORDERED: Albuterol-Ipratrop 3 mg / 0.5 (3 ml) UD INH SCH (18:00)
[2018-03-04] MEDS: Vancomycin 1 gm/NS 200 ml 1 GM/200 ML BAG IVPB SCH (18:47)
[2018-03-04] MEDS ORDERED: Fluticasone-Salmeterol 250-50mcg Diskus INH SCH (20:00)
[2018-03-04] MEDS: Oxycodone/Acetaminophen 5/325 mg Tab PO PRN (20:31)
[2018-03-05] MEDS: DiphenhydrAMINE 50 mg/ml Inj IVP PRN ×2 (00:10→23:54)
[2018-03-05] MEDS: Oxycodone/Acetaminophen 5/325 mg Tab PO PRN ×3 (00:31→21:05)
[2018-03-05] MEDS: Albuterol-Ipratrop 3 mg / 0.5 (3 ml) UD INH SCH ×4 (01:09→19:15)
[2018-03-05] MEDS ORDERED: DiphenhydrAMINE 50 mg/ml Inj IVP STA (02:13)
[2018-03-05] MEDS ORDERED: Morphine 4 MG/ML VIAL IVP ONE (05:20)
[2018-03-05] MEDS: Sodium Chloride 0.9% 1,000 ML IV SCH ×2 (06:20→18:44)
[2018-03-05 07:01] LABS: BASO % 0.5 % (0.0-2.0); EOS # 0.1 K/uL (0.0-0.7); HEMOGLOBIN 9.7 g/dL (11.0-16.0); LYMPH # 2.1 K/uL (1.0-4.3); LYMPH % 38.4 % (20.0-40.0); MEAN CELL VOLUME 93.3 fL (81.0-99.0); MEAN CORPUSCULAR HGB CONC 34.3 g/dL (33.0-37.0); MEAN PLATELET VOLUME 8.3 fL (7.2-11.7); MONO # 0.5 K/uL (0.0-0.8); MONO % 8.7 % (0.0-10.0); NEUT # 2.8 K/uL (1.8-7.0); NEUT % 50.4 % (50.0-75.0); NRBC % 0.1 % (0.0-2.0); RBC 3.03 Mil/uL (3.80-5.20); RED CELL DISTRIBUTION WIDTH 13.8 % (11.5-14.5); WHITE BLOOD COUNT 5.5 K/uL (4.8-10.8)
[2018-03-05 07:37] LABS: ALB/GLOB RATIO 0.9 (1.0-2.1); ALBUMIN 2.9 g/dL (3.5-5.0); ALT/SGPT 18 U/L (9-52); AST/SGOT 17 U/L (14-36); BLOOD UREA NITROGEN 12 mg/dL (7-17); CALCIUM 7.9 mg/dl (8.6-10.4); GFR AFRICAN-AMERICAN > 60; GFR NON-AFRICAN AMERICAN > 60
--- NOTE | 2018-03-05 10:54 | CP.PCM.PN ---
Subjective - Date & Time of Evaluation Date of Evaluation: 03/05/18 Time of Evaluation: 10:50 - Subjective Subjective: Progress note. Attending: Dr. Diehl Pt seen and examined at bedside. No acute distress. No events overnight. No fevers, chills, vomiting, diarrhea. going back to or today. Objective - Vital Signs/Intake and Output Vital Signs (last 24 hours): Temp Pulse Resp BP Pulse Ox 98.4 F 87 20 90/51 L 96 03/05/18 07:00 03/05/18 07:00 03/05/18 07:00 03/05/18 07:00 03/05/18 07:00 Intake and Output: 03/05/18 03/05/18 06:59 18:59 Intake Total 800 Balance 800 - Medications Medications: Current Medications Albuterol/Ipratropium (Duoneb 3 Mg/0.5 Mg (3 Ml) Ud) 3 ml INH RQ6 ROGERIO Last Admin: 03/05/18 07:27 Dose: 3 ml Alprazolam (Xanax) 0.5 mg PO Q8 PRN PRN Reason: Anxiety Dicyclomine HCl (Bentyl) 10 mg PO Q6 ROGERIO Last Admin: 03/05/18 06:38 Dose: Not Given Diphenhydramine HCl (Benadryl) 25 mg IVP Q6H PRN PRN Reason: Itching / Pruritus Last Admin: 03/05/18 00:10 Dose: 25 mg Sodium Chloride (Sodium Chloride 0.9%) 1,000 mls @ 100 mls/hr IV .Q10H ROGERIO Last Admin: 03/05/18 06:20 Dose: 100 mls/hr Vancomycin/Sodium Chloride (Vancomycin 1 Gm/Ns 200 Ml) 1 gm in 200 mls @ 167 mls/hr IVPB Q24H ROGERIO PRN Reason: Protocol Stop: 03/09/18 18:01 Last Admin: 03/04/18 18:47 Dose: 167 mls/hr Loratadine (Claritin) 10 mg PO DAILY ROGERIO Last Admin: 03/05/18 10:07 Dose: Not Given Oxycodone/Acetaminophen (Percocet 5/325 Mg Tab) 1 tab PO Q4H PRN PRN Reason: Pain, severe (8-10) Stop: 03/07/18 20:15 Last Admin: 03/05/18 00:31 Dose: 1 tab Pantoprazole Sodium (Protonix Inj) 40 mg IVP DAILY [facility] Pneumococcal Polyvalent Vaccine (Pneumovax 23 Vaccine) 0.5 ml IM .ONCE ONE Stop: 03/06/18 12:01 Fluticasone/Salmeterol (Advair Diskus 250/50) 1 puff INH RQ12 ROGERIO - Labs Labs: 03/05/18 06:53 03/05/18 06:53 PT 11.0 SECONDS (9.7-12.2) 03/04/18 11:35 INR 1.0 03/04/18 11:35 APTT 33 SECONDS (21-34) 03/04/18 11:35 - Constitutional Appears: Non-toxic, No Acute Distress - Head Exam Head Exam: ATRAUMATIC, NORMAL INSPECTION, NORMOCEPHALIC - Eye Exam Eye Exam: EOMI - ENT Exam ENT Exam: Mucous Membranes Moist - Neck Exam Neck Exam: Full ROM, Normal Inspection - Respiratory Exam Respiratory Exam: NORMAL BREATHING PATTERN. absent: Respiratory Distress - Cardiovascular Exam Cardiovascular Exam: +S1, +S2 - GI/Abdominal Exam GI & Abdominal Exam: Soft, Normal Bowel Sounds. absent: Tenderness Additional comments: dressing in groin clean, dry, intact - Extremities Exam Extremities Exam: Full ROM, Normal Inspection - Back Exam Back Exam: NORMAL INSPECTION - Neurological Exam Neurological Exam: Alert, Awake, Oriented x3 - Psychiatric Exam Psychiatric exam: Normal Affect, Normal Mood - Skin Skin Exam: Dry, Intact, Normal Color, Warm Assessment and Plan - Assessment and Plan (Free Text) Assessment: This is a 37 yo female with 1. Hiadradenitis suppartiva/groin abscess -OR today with Artur. -pt had groin abscess excised yesterday -ID consult. Dr. Gastelum. recs appreciated. -NS -tylenol for fever -starting IV vancomycin 2. Hx of DM -check HGB a1c 3. hx of HTN -continue to monitor 4. hx of asthma -duonebs 5. GI/DVT ppx -scds -protonix daily -discussed with Dr. Diehl.
--- NOTE | 2018-03-05 11:27 | CP.PCM.CON ---
History of Present Illness - History of Present Illness History of Present Illness: 7 y/o female presents to ED with complaints of painful right groin abscess. Patient states she called Dr. Siddiqui who told her to come to ED for admission for I&D procedure. Patient states she has been NPO since last night and reports 101 fever yesterday, resolved with Motrin. Patient denies nausea, vomiting, chest pain, sob or any other complaints at this time. ID consulted for antibiotic management - Medical History PMH: Anxiety, Asthma, Gastritis, Gall Bladder Disease, Pneumonia ([id number] ) Surgical History: Cholecystectomy, Endoscopy, Tonsillectomy, ( Myomectomy) - [facility] Procedures DRAINAGE OF LEFT INGUINAL REGION, OPEN APPROACH (01/07/18) DRAINAGE OF PERINEUM SKIN, EXTERNAL APPROACH (04/19/16) DRAINAGE OF RIGHT INGUINAL REGION, OPEN APPROACH (01/07/18) EXCISION OF UTERUS, OPEN APPROACH (04/19/16) Review of Systems - Review of Systems All systems: reviewed and no additional remarkable complaints except - Constitutional Constitutional: As Per HPI - EENT Eyes: absent: As Per HPI, Blind Spots, Blurred Vision, Change in Vision, Decreased Night Vision, Diplopia, Discharge, Dry Eye, Exophthalmos, Floaters, Irritation, Itchy Eyes, Loss of Peripheral Vision, Pain, Photophobia, Requires Corrective Lenses, Sees Flashes, Spots in Vision, Tunnel Vision, Other Visual Disturbances, Loss of Vision, Other Ears: absent: As Per HPI, Decreased Hearing, Ear Discharge, Ear Pain, Tinnitus, Abnormal Hearing, Disequilibrium, Dizziness, Other Nose/Mouth/Throat: absent: As Per HPI, Epistaxis, Nasal Congestion, Nasal Discharge, Nasal Obstruction, Nasal Trauma, Nose Pain, Post Nasal Drip, Sinus Pain, Sinus Pressure, Bleeding Gums, Change in Voice, Dental Pain, Dry Mouth, Dysphagia, Halitosis, Hoarsness, Lip Swelling, Mouth Lesions, Mouth Pain, Odynophagia, Sore Throat, Throat Swelling, Tongue Swelling, Facial Pain, Neck Pain, Neck Mass, Other - Breasts Breasts: absent: As Per HPI, Change in Shape, Mass, Pain, Nipple Discharge, Nipple Inversion, Skin Changes, Swelling, Other - Cardiovascular Cardiovascular: absent: As Per HPI, Acrocyanosis, Chest Pain, Chest Pain at Rest , Chest Pain with Activity, Claudication, Diaphoresis, Dyspnea, Dyspnea on Exertion, Edema, Irregular Heart Rhythm, Pain Radiating to Arm/Neck/Jaw, Leg Edema, Leg Ulcers, Lightheadedness, Orthopnea, Palpitations, Paroxysmal Nocturnal Dyspnea, Pedal Edema, Radiating Pain, Rapid Heart Rate, Slow Heart Rate, Syncope, Other - Respiratory Respiratory: absent: As Per HPI, Cough, Dyspnea, Hemoptysis, Dyspnea on Exertion , Wheezing, Snoring, Stridor, Pain on Inspiration, Chest Congestion, Excessive Mucous Production, Change in Mucous Color, Pain with Coughing, Other - Gastrointestinal Gastrointestinal: absent: As Per HPI, Abdominal Pain, Belching, Bloating, Change in Bowel Habits, Change in Stool Character, Coffee Ground Emesis, Constipation, Cramping, Diarrhea, Dyspepsia, Dysphagia, Early Satiety, Excessive Flatus, Fecal Incontinence, Heartburn, Hematemesis, Hematochezia, Loose Stools, Melena, Nausea, Odynophagia, Temesmus, Vomiting, Other - Genitourinary Genitourinary: absent: As Per HPI, Change in Urinary Stream, Difficulty Urinating, Dysuria, Flank Pain, Hematuria, Pyuria, Nocturia, Urinary Incontinence, Urinary Frequency, Urinary Hesitance, Urinary Urgency, Voiding Freq/Small Amts, Freq UTI, Hx Renal/Bladder Calculi, Hx /Renal Surgery, Bladder Distension, Other - Reproductive: Female Reproductive:Female: absent: As Per HPI, Amenorrhea, Amenorrhea/ Control, Currently Menstual, Cycle <21 Days, Cycle >35 Days, Cycle Variable, Menses 1-7 Days, Menses >/= 8 Days, Menses Variable, Cycle > 4 Weeks Between, No Menses for 6 Months, Heavy Menses, Light Menses, Normal Menses, Spotting Between Cycles , S/P Hysterectomy, Menopausal, Post Menopausal, Premenarche, Abnormal Vaginal Bleeding, Dysmenorrhea, Dyspareunia, Genital Lesions, Genital Pruritis, Pelvic Pain, Prolapse Symptoms, Sexual Dysfunction, Vaginal Discharge, Vaginal Dryness , Vaginal Odor, Vaginal Pruritis, Other - Menstruation Menstruation: absent: As Per HPI, Amenorrhea, Amenorrhea/ Control, Currently Menstual, Cycle <21 Days, Cycle >35 Days, Cycle Variable, Menses 1-7 Days, Menses >/= 8 Days, Menses Variable, Cycle > 4 Weeks Between, No Menses for 6 Months, Heavy Menses, Light Menses, Normal Menses, Spotting Between Cycles , S/P Hysterectomy, Menopausal, Post Menopausal, Premenarche, Abnormal Vaginal Bleeding, Dysmenorrhea, Other - Musculoskeletal Musculoskeletal: absent: As Per HPI, Abnormal Gait, Arthralgias, Atrophy, Back Pain, Deformity, Joint Swelling, Limited Range of Motion, Loss of Height, Muscle Cramps, Muscle Weakness, Myalgias, Neck Pain, Numbness, Radiating Pain into Limb, Stiffness, Tingling, Other - Integumentary Integumentary: As Per HPI, Skin Pain, Wounds - Neurological Neurological: absent: As Per HPI, Abnormal Gait, Abnormal Hearing, Abnormal Movements, Abnormal Speech, Behavioral Changes, Burning Sensations, Confusion, Convulsions, Disequilibrium, Dizziness, Numbness, Focal Weakness, Frequent Falls , Headaches, Lack of Coordination, Loss of Vision, Memory Loss, Paresthesias, Radicular Pain, Restless Legs, Sensory Deficit, Syncope, Tingling, Tremor, Vertigo, Weakness, Other Visual Disturbances, Other - Psychiatric Psychiatric: absent: As Per HPI, Abnormal Sleep Pattern, Anhedonia, Anxiety, Auditory Hallucinations, Behavioral Changes, Change in Appetite, Change in Libido, Confusion, Depression, Difficulty Concentrating, Hallucinations, Homicidal Ideation, Hopelessness, Irritability, Memory Loss, Mood Swings, Panic Attacks, Paranoia, Suicidal Ideation, Visual Hallucinations, Tactile Hallucinations, Other - Endocrine Endocrine: absent: As Per HPI, Change in Body Appearance, Change in Libido, Cold Intolorance, Deepening of Voice, Excessive Sweating, Fatigue, Flushing, Heat Intolorance, Increase in Ring/Shoe/Hat Size, Palpitations, Polydipsia, Polyphagia, Polyuria, Other - Hematologic/Lymphatic Hematologic: absent: As Per HPI, Easy Bleeding, Easy Bruising, Lymphadenopathy, Other Past Patient History - Infectious Disease Hx of Infectious Diseases: None - Past Medical History & Family History Past Medical History?: Yes - Past Social History Smoking Status: Smoker Currrent Status Unknown - CARDIAC Hx Cardiac Disorders: No - PULMONARY Hx Asthma: Yes Hx Pneumonia: Yes (2016) - NEUROLOGICAL Hx Neurological Disorder: No - HEENT Hx HEENT Problems: No - RENAL Hx Chronic Kidney Disease: No - ENDOCRINE/METABOLIC Hx Endocrine Disorders: No - HEMATOLOGICAL/ONCOLOGICAL Hx Blood Disorders: No - INTEGUMENTARY Hx Dermatological Problems: Yes Other/Comment: HX: MASS RIGHT GROIN - MUSCULOSKELETAL/RHEUMATOLOGICAL Hx Musculoskeletal Disorders: No Hx Falls: No - GASTROINTESTINAL Hx Gall Bladder Disease: Yes Hx Gastritis: Yes - GENITOURINARY/GYNECOLOGICAL Hx Genitourinary Disorders: Yes Hx Reproductive Disorders: Yes Other/Comment: HX: FIBROID UTERUS - PSYCHIATRIC Hx Anxiety: Yes Hx Substance Use: No - SURGICAL HISTORY Hx Cholecystectomy: Yes Hx Tonsillectomy: Yes - ANESTHESIA Hx Anesthesia: Yes Hx Anesthesia Reactions: No Hx Malignant Hyperthermia: No Meds Allergies/Adverse Reactions: Allergies Allergy/AdvReac Type Severity Reaction Status Date / Time adhesive tape Allergy Severe RASH Verified 01/10/18 11:06 ciprofloxacin [From Cipro] Allergy Intermediate RASH Verified 01/10/18 11:06 ciprofloxacin HCl Allergy Intermediate RASH Verified 01/10/18 11:06 [From Cipro] hydromorphone HCl Allergy Intermediate RASH Verified 01/10/18 11:06 [From Dilaudid] Penicillins Allergy Intermediate RASH Verified 01/10/18 11:06 shrimp Allergy Intermediate RASH Verified 01/10/18 11:06 sulfamethoxazole Allergy Intermediate RASH Verified 01/10/18 11:06 [From Bactrim] trimethoprim [From Bactrim] Allergy Intermediate RASH Verified 01/10/18 11:06 doxycycline AdvReac RASH, Verified 01/11/18 10:06 ITCHINESS, THROAT SWELLING - Medications Medications: Current Medications Albuterol/Ipratropium (Duoneb 3 Mg/0.5 Mg (3 Ml) Ud) 3 ml INH RQ6 ROGERIO Last Admin: 03/05/18 07:27 Dose: 3 ml Alprazolam (Xanax) 0.5 mg PO Q8 PRN PRN Reason: Anxiety Dicyclomine HCl (Bentyl) 10 mg PO Q6 ROGERIO Last Admin: 03/05/18 06:38 Dose: Not Given Diphenhydramine HCl (Benadryl) 25 mg IVP Q6H PRN PRN Reason: Itching / Pruritus Last Admin: 03/05/18 00:10 Dose: 25 mg Sodium Chloride (Sodium Chloride 0.9%) 1,000 mls @ 100 mls/hr IV .Q10H ROGERIO Last Admin: 03/05/18 06:20 Dose: 100 mls/hr Vancomycin/Sodium Chloride (Vancomycin 1 Gm/Ns 200 Ml) 1 gm in 200 mls @ 167 mls/hr IVPB Q24H ROGERIO PRN Reason: Protocol Stop: 03/09/18 18:01 Last Admin: 03/04/18 18:47 Dose: 167 mls/hr Loratadine (Claritin) 10 mg PO DAILY [facility] Last Admin: 03/05/18 10:07 Dose: Not Given Oxycodone/Acetaminophen (Percocet 5/325 Mg Tab) 1 tab PO Q4H PRN PRN Reason: Pain, severe (8-10) Stop: 03/07/18 20:15 Last Admin: 03/05/18 00:31 Dose: 1 tab Pantoprazole Sodium (Protonix Inj) 40 mg IVP DAILY [facility] Pneumococcal Polyvalent Vaccine (Pneumovax 23 Vaccine) 0.5 ml IM .ONCE ONE Stop: 03/06/18 12:01 Fluticasone/Salmeterol (Advair Diskus 250/50) 1 puff INH RQ12 [facility] Physical Exam - Constitutional Appears: Non-toxic, Chronically Ill - Head Exam Head Exam: NORMOCEPHALIC - Eye Exam Eye Exam: PERRL - ENT Exam ENT Exam: Mucous Membranes Dry - Neck Exam Neck exam: Negative for: Lymphadenopathy - Respiratory Exam Respiratory Exam: Decreased Breath Sounds - Cardiovascular Exam Cardiovascular Exam: REGULAR RHYTHM - GI/Abdominal Exam GI & Abdominal Exam: Diminished Bowel Sounds, Soft. absent: Tenderness - Rectal Exam Rectal Exam: Deferred - Exam Exam: NORMAL INSPECTION - Extremities Exam Extremities exam: Positive for: pedal pulses present. Negative for: pedal edema - Back Exam Back exam: absent: CVA tenderness (L), CVA tenderness (R) - Neurological Exam Neurological exam: Alert, CN II-XII Intact, Oriented x3, Reflexes Normal - Psychiatric Exam Psychiatric exam: Normal Mood - Skin Skin Exam: Dry Additional comments: wound right groin Results - Vital Signs Recent Vital Signs: Last Vital Signs Temp 98.4 F 03/05/18 07:00 Pulse 87 03/05/18 07:00 Resp 20 03/05/18 07:00 BP 90/51 L 03/05/18 07:00 Pulse Ox 96 03/05/18 11:13 - Labs Result Diagrams: 03/05/18 06:53 03/05/18 06:53 Labs: Laboratory Results - last 24 hr 03/04/18 03/04/18 03/04/18 11:35 11:35 11:35 WBC 5.5 RBC 3.48 L Hgb 11.0 Hct 32.5 L MCV 93.4 MCH 31.7 H MCHC 33.9 RDW 14.2 Plt Count 294 MPV 8.2 Neut % (Auto) Lymph % (Auto) Armstrong % (Auto) Eos % (Auto) Baso % (Auto) Neut # (Auto) Lymph # (Auto) Armstrong # (Auto) Eos # (Auto) Baso # (Auto) PT 11.0 INR 1.0 APTT 33 Sodium Potassium Chloride Carbon Dioxide Anion Gap BUN Creatinine Est GFR ( Amer) Est GFR (Non-Af Amer) Random Glucose Hemoglobin A1c Calcium Total Bilirubin AST ALT Alkaline Phosphatase Total Protein Albumin Globulin Albumin/Globulin Ratio Urine Color Straw Urine Clarity Clear Urine pH 6.0 Ur Specific [place] 1.005 Urine Protein Negative Urine Glucose (UA) Normal Urine Ketones Negative Urine Blood Negative Urine Nitrate Negative Urine Bilirubin Negative Urine Urobilinogen Normal Ur Leukocyte Esterase Neg Urine WBC (Auto) 1 Urine RBC (Auto) < 1 Ur Squamous Epith Cells 1 Urine Bacteria Rare Urine HCG, Qual 03/04/18 03/04/18 03/04/18 11:35 11:35 16:28 WBC RBC Hgb Hct MCV MCH MCHC RDW Plt Count MPV Neut % (Auto) Lymph % (Auto) Armstrong % (Auto) Eos % (Auto) Baso % (Auto) Neut # (Auto) Lymph # (Auto) Armstrong # (Auto) Eos # (Auto) Baso # (Auto) PT INR APTT Sodium 139 Potassium 3.8 Chloride 105 Carbon Dioxide 27 Anion Gap 11 BUN 10 Creatinine 0.8 Est GFR ( Amer) > 60 Est GFR (Non-Af Amer) > 60 Random Glucose 90 Hemoglobin A1c 5.7 Calcium 8.8 Total Bilirubin 0.7 AST 24 ALT 15 Alkaline Phosphatase 59 Total Protein 7.4 Albumin 4.1 Globulin 3.3 Albumin/Globulin Ratio 1.3 Urine Color Urine Clarity Urine pH Ur Specific [place] Urine Protein Urine Glucose (UA) Urine Ketones Urine Blood Urine Nitrate Urine Bilirubin Urine Urobilinogen Ur Leukocyte Esterase Urine WBC (Auto) Urine RBC (Auto) Ur Squamous Epith Cells Urine Bacteria Urine HCG, Qual Negative 03/05/18 03/05/18 06:53 06:53 WBC 5.5 RBC 3.03 L Hgb 9.7 L Hct 28.3 L MCV 93.3 MCH 32.0 H MCHC 34.3 RDW 13.8 Plt Count 262 MPV 8.3 Neut % (Auto) 50.4 Lymph % (Auto) 38.4 Armstrong % (Auto) 8.7 Eos % (Auto) 2.0 Baso % (Auto) 0.5 Neut # (Auto) 2.8 Lymph # (Auto) 2.1 Armstrong # (Auto) 0.5 Eos # (Auto) 0.1 Baso # (Auto) 0.0 PT INR APTT Sodium 138 Potassium 3.9 Chloride 108 H Carbon Dioxide 22 Anion Gap 11 BUN 12 Creatinine 0.8 Est GFR ( Amer) > 60 Est GFR (Non-Af Amer) > 60 Random Glucose 94 Hemoglobin A1c Calcium 7.9 L Total Bilirubin 0.3 AST 17 ALT 18 Alkaline Phosphatase 53 Total Protein 6.0 L Albumin 2.9 L D Globulin 3.1 Albumin/Globulin Ratio 0.9 L Urine Color Urine Clarity Urine pH Ur Specific [place] Urine Protein Urine Glucose (UA) Urine Ketones Urine Blood Urine Nitrate Urine Bilirubin Urine Urobilinogen Ur Leukocyte Esterase Urine WBC (Auto) Urine RBC (Auto) Ur Squamous Epith Cells Urine Bacteria Urine HCG, Qual Assessment & Plan (1) Abscess of groin, right Status: Acute (2) Cellulitis Status: Acute - Assessment and Plan (Free Text) Assessment: IV rx ordered
[2018-03-05] MEDS: Vancomycin 1 gm/NS 200 ml 1 GM/200 ML BAG IVPB SCH ×3 (12:18→23:01)
[2018-03-05] MEDS ORDERED: Midazolam 2 MG/2 ML VIAL ONE (14:27)
[2018-03-05] MEDS ORDERED: Propofol 10 mg/ml Inj (20 ML) ONE ×2 (14:27→14:36)
[2018-03-05] MEDS ORDERED: Lidocaine/Epinephrine 1% 1:100000 10 ML IJ ONE (14:33)
[2018-03-05] MEDS ORDERED: HYDROmorphone 0.5 mg/0.5 ml ISec IVP PRN (14:55)
[2018-03-05] MEDS ORDERED: HYDROmorphone 0.5 mg/0.5 ml ISec ONE (15:09)
[2018-03-05] MEDS ORDERED: DiphenhydrAMINE 50 mg/ml Inj IVP PRN (15:11)
[2018-03-05] MEDS: Lactated Ringer's 1,000 ML IV SCH (15:30)
[2018-03-06 00:31] VITALS: RESP 20
[2018-03-06] MEDS: Albuterol-Ipratrop 3 mg / 0.5 (3 ml) UD INH SCH ×3 (01:14→20:03)
[2018-03-06] MEDS: Oxycodone/Acetaminophen 5/325 mg Tab PO PRN ×3 (01:33→09:55)
--- NOTE | 2018-03-06 02:27 | OP ---
PROCEDURE DATE: 03/04/2018 PREOPERATIVE DIAGNOSIS: Infected mass of the right groin with groin abscess. POSTOPERATIVE DIAGNOSIS: Infected mass of the right groin with groin abscess. PROCEDURE PERFORMED: Wide deep excision of mass of the hip and pelvic area with drainage of underlying abscess with underlying retroperitoneal abscess and partial tissue flap closure. SURGEON: Nitish Siddiqui MD ANESTHESIA: General. BLOOD LOSS: 30 mL. POSTOPERATIVE CONDITION: Stable. INDICATIONS FOR SURGERY: This is a 37-year-old female who presents with an infected mass of the right groin. She is status post drainage of an abscess in the right groin several weeks ago and this is in a different area, most likely due to hidradenitis. She now will undergo removal and debridement along with drainage of the abscess. PROCEDURE: The patient was taken to the operating room and general anesthesia was administered. The right groin was shaved, prepped, and draped. Elliptical incision was made and the infected phlegmon was removed. The underlying abscess was drained. The wound was irrigated with saline. Partial tissue flaps were raised and a larger blood vessel was repaired. The central portion was packed open with saline gauze. The patient tolerated the procedure well and returned to recovery room in stable condition. Nitish Siddiqui MD
--- NOTE | 2018-03-06 02:35 | OP ---
PROCEDURE DATE: 03/05/2018 PREOPERATIVE DIAGNOSIS: Large open wound of the right groin. POSTOPERATIVE DIAGNOSIS: Large open wound of the right groin. PROCEDURE PERFORMED: Redebridement and redrainage of abscess right groin and change of packing. SURGEON: Nitish Siddiqui MD ANESTHESIA: General. BLOOD LOSS: 40 mL. POSTOPERATIVE CONDITION: Stable. INDICATIONS FOR SURGERY: This is a staged procedure. The patient is status post removal of an infected mass with drainage of an underlying abscess yesterday. She is now taken back in a staged procedure for change of packing and pulse irrigation and cleansing of the wound. DESCRIPTION OF PROCEDURE: The patient was taken to the operating room. IV sedation was administered. The packing was removed from the right groin. Almost immediately, there was a fair amount of bleeding, and the wound was quickly prepped and draped. Blood vessel was controlled and repaired. The wound was pulse irrigated with saline and any remaining retroperitoneal collections were drained. The partial tissue flaps were closed to periphery and the central portion of wound was packed open with wet saline gauze. The patient tolerated the procedure well. Returned to recovery room in stable condition. Nitish Siddiqui MD
[2018-03-06] MEDS: Sodium Chloride 0.9% 1,000 ML IV SCH ×2 (04:48→04:51)
--- NOTE | 2018-03-06 07:27 | CP.PCM.PN ---
Subjective - Date & Time of Evaluation Date of Evaluation: 03/06/18 Time of Evaluation: 07:26 - Subjective Subjective: Progress Note for Dr. Diehl's Service Pt seen and examined at bedside. Continues to have pain and discomfort in the groin. She will be going to I&D with Dr. Siddiqui today. Objective - Vital Signs/Intake and Output Vital Signs (last 24 hours): Temp Pulse Resp BP Pulse Ox 98.2 F 109 H 20 94/51 L 96 03/06/18 04:20 03/06/18 04:20 03/06/18 04:20 03/06/18 04:20 03/06/18 04:20 Intake and Output: 03/06/18 03/06/18 06:59 18:59 Intake Total 1080 Balance 1080 - Medications Medications: Current Medications Albuterol/Ipratropium (Duoneb 3 Mg/0.5 Mg (3 Ml) Ud) 3 ml INH RQ6 [facility] Last Admin: 03/06/18 01:14 Dose: Not Given Alprazolam (Xanax) 0.5 mg PO Q8 PRN PRN Reason: Anxiety Dicyclomine HCl (Bentyl) 10 mg PO Q6 [facility] Last Admin: 03/06/18 01:34 Dose: 10 mg Diphenhydramine HCl (Benadryl) 25 mg IVP Q6H PRN PRN Reason: Itching / Pruritus Last Admin: 03/05/18 23:54 Dose: 25 mg Sodium Chloride (Sodium Chloride 0.9%) 1,000 mls @ 100 mls/hr IV .Q10H [facility] Last Admin: 03/06/18 04:51 Dose: Not Given Vancomycin/Sodium Chloride (Vancomycin 1 Gm/Ns 200 Ml) 1 gm in 200 mls @ 167 mls/hr IVPB Q24H [facility] PRN Reason: Protocol Stop: 03/09/18 18:01 Last Admin: 03/05/18 17:28 Dose: 167 mls/hr Vancomycin/Sodium Chloride (Vancomycin 1 Gm/Ns 200 Ml) 1 gm in 200 mls @ 166.6 mls/hr IVPB Q12H [facility] PRN Reason: Protocol Stop: 03/10/18 11:31 Last Admin: 03/05/18 23:01 Dose: 166.6 mls/hr Lactated Ringer's (Lactated Ringer's) 1,000 mls @ 75 mls/hr IV .[id number] [facility] Last Admin: 03/05/18 15:30 Dose: 75 mls/hr Loratadine (Claritin) 10 mg PO DAILY [facility] Last Admin: 03/05/18 10:07 Dose: Not Given Oxycodone/Acetaminophen (Percocet 5/325 Mg Tab) 1 tab PO Q4H PRN PRN Reason: Pain, severe (8-10) Stop: 03/07/18 20:15 Last Admin: 03/06/18 04:47 Dose: 1 tab Pantoprazole Sodium (Protonix Inj) 40 mg IVP DAILY [facility] Last Admin: 03/05/18 12:19 Dose: 40 mg Pneumococcal Polyvalent Vaccine (Pneumovax 23 Vaccine) 0.5 ml IM .ONCE ONE Stop: 03/06/18 12:01 Fluticasone/Salmeterol (Advair Diskus 250/50) 1 puff INH RQ12 [facility] - Labs Labs: 03/05/18 06:53 03/05/18 06:53 PT 11.0 SECONDS (9.7-12.2) 03/04/18 11:35 INR 1.0 03/04/18 11:35 APTT 33 SECONDS (21-34) 03/04/18 11:35 - Constitutional Appears: Non-toxic - Head Exam Head Exam: ATRAUMATIC, NORMOCEPHALIC - Eye Exam Eye Exam: EOMI, Normal appearance - ENT Exam ENT Exam: Mucous Membranes Moist - Respiratory Exam Respiratory Exam: Clear to Ausculation Bilateral, NORMAL BREATHING PATTERN - Cardiovascular Exam Cardiovascular Exam: REGULAR RHYTHM, +S1, +S2 - GI/Abdominal Exam GI & Abdominal Exam: Soft. absent: Tenderness - Extremities Exam Additional comments: dressing on wound c/d/i - Neurological Exam Neurological Exam: Alert, Awake, Oriented x3 - Psychiatric Exam Psychiatric exam: Normal Affect, Normal Mood - Skin Skin Exam: Dry, Warm Assessment and Plan - Assessment and Plan (Free Text) Plan: 1. Hiadradenitis suppartiva/groin abscess -Surgery consult placed to Dr. Siddiqui OR today with Artur for I&D pt had groin abscess excised 03/04/18 Morphine 1mg IVP q10min prn Percocet 1t q4hrs prn -ID consult. Dr. Gastelum. recs appreciated. starting IV vancomycin 2. Hx of DM -check HGB a1c 3. hx of HTN -continue to monitor 4. hx of asthma -duonebs -advair 1 puff q12hrs 5. Anxiety -xanax 0.5mg PO q8hrs prn 6. Multifactorial allergies -Claritin -Benadryl 7. GI/DVT ppx -scds -protonix daily Case discussed with Dr. Diehl All management as per Dr. Diehl.
[2018-03-06 07:35] LABS: BASO % 0.5 % (0.0-2.0); EOS # 0.1 K/uL (0.0-0.7); EOS % 2.4 % (0.0-4.0); HEMOGLOBIN 9.4 g/dL (11.0-16.0); LYMPH % 36.6 % (20.0-40.0); MEAN CELL VOLUME 93.4 fL (81.0-99.0); MEAN CORPUSCULAR HEMOGLOBIN 31.9 pg (27.0-31.0); MEAN CORPUSCULAR HGB CONC 34.2 g/dL (33.0-37.0); MEAN PLATELET VOLUME 7.8 fL (7.2-11.7); MONO # 0.4 K/uL (0.0-0.8); MONO % 8.2 % (0.0-10.0); NEUT # 2.8 K/uL (1.8-7.0); NEUT % 52.3 % (50.0-75.0); RBC 2.95 Mil/uL (3.80-5.20); RED CELL DISTRIBUTION WIDTH 14.1 % (11.5-14.5); WHITE BLOOD COUNT 5.4 K/uL (4.8-10.8)
[2018-03-06 07:52] LABS: ALB/GLOB RATIO 1.1 (1.0-2.1); ALBUMIN 3.1 g/dL (3.5-5.0); ALT/SGPT 17 U/L (9-52); AST/SGOT 16 U/L (14-36); BLOOD UREA NITROGEN 6 mg/dL (7-17); CALCIUM 8.1 mg/dl (8.6-10.4); GFR AFRICAN-AMERICAN > 60; GFR NON-AFRICAN AMERICAN > 60
--- NOTE | 2018-03-06 08:43 | HP ---
HISTORY OF PRESENT ILLNESS: A 37-year-old female who has been to have hidradenitis, comes to the hospital with a chief complaint of weakness, fatigue, pain and swelling. The patient seen by surgeon, advised admission to hospital. The patient hidradenitis. PHYSICAL EXAMINATION GENERAL: The patient is alert and oriented. VITAL SIGNS: Temperature 98, pulse 90. HEENT: Within normal limits. NECK: Supple. CHEST: Symmetrical. HEART: Regular. ABDOMEN: Soft. EXTREMITIES: No edema. / IMPRESSION: The patient suffers from hidradenitis, right groin. The patient to get bed rest, antibiotics, surgerical consult. Viviane Diehl MD
[2018-03-06] MEDS ORDERED: Pneumococcal 23-Valent Vaccine IM ONE (12:00)
[2018-03-06] MEDS: Vancomycin 1 gm/NS 200 ml 1 GM/200 ML BAG IVPB SCH ×2 (12:01→22:46)
[2018-03-06] MEDS ORDERED: Propofol 10 mg/ml Inj (20 ML) ONE (13:41)
[2018-03-06] MEDS ORDERED: Bacitracin 500 Units/gm Oint Foilpak UD ONE (14:29)
[2018-03-06] MEDS ORDERED: HYDROmorphone 0.5 mg/0.5 ml ISec IVP PRN (14:42)
[2018-03-06] MEDS ORDERED: DiphenhydrAMINE 50 mg/ml Inj IVP PRN (14:49)
[2018-03-06] MEDS ORDERED: Sodium Chloride 0.9% 1,000 ML IV ONE (14:49)
[2018-03-06] MEDS: DiphenhydrAMINE 50 mg/ml Inj IVP PRN (15:36)
--- NOTE | 2018-03-06 17:50 | CP.PCM.PN ---
Subjective - Date & Time of Evaluation Date of Evaluation: 03/06/18 Time of Evaluation: 07:00 - Subjective Subjective: C/O PAIN S/P i AND d Objective - Vital Signs/Intake and Output Vital Signs (last 24 hours): Temp Pulse Resp BP Pulse Ox 98.1 F 90 20 130/86 100 03/06/18 16:30 03/06/18 16:30 03/06/18 16:30 03/06/18 16:30 03/06/18 16:30 Intake and Output: 03/06/18 03/06/18 06:59 18:59 Intake Total 1080 1900 Output Total 800 Balance 1080 1100 - Medications Medications: Current Medications Albuterol/Ipratropium (Duoneb 3 Mg/0.5 Mg (3 Ml) Ud) 3 ml INH RQ6 [facility] Last Admin: 03/06/18 07:38 Dose: 3 ml Alprazolam (Xanax) 0.5 mg PO Q8 PRN PRN Reason: Anxiety Dicyclomine HCl (Bentyl) 10 mg PO Q6 [facility] Last Admin: 03/06/18 11:51 Dose: Not Given Diphenhydramine HCl (Benadryl) 25 mg IVP Q6H PRN PRN Reason: Itching / Pruritus Last Admin: 03/06/18 15:36 Dose: 25 mg Sodium Chloride (Sodium Chloride 0.9%) 1,000 mls @ 100 mls/hr IV .Q10H [facility] Last Admin: 03/06/18 04:51 Dose: Not Given Vancomycin/Sodium Chloride (Vancomycin 1 Gm/Ns 200 Ml) 1 gm in 200 mls @ 166.6 mls/hr IVPB Q12H [facility] PRN Reason: Protocol Stop: 03/10/18 11:31 Last Admin: 03/06/18 12:01 Dose: 166.6 mls/hr Lactated Ringer's (Lactated Ringer's) 1,000 mls @ 75 mls/hr IV .[id number] [facility] Last Admin: 03/05/18 15:30 Dose: 75 mls/hr Loratadine (Claritin) 10 mg PO DAILY [facility] Last Admin: 03/06/18 11:51 Dose: Not Given Oxycodone/Acetaminophen (Percocet 5/325 Mg Tab) 1 tab PO Q4H PRN PRN Reason: Pain, severe (8-10) Stop: 03/07/18 20:15 Last Admin: 03/06/18 09:55 Dose: 1 tab Pantoprazole Sodium (Protonix Inj) 40 mg IVP DAILY [facility] Last Admin: 03/06/18 09:56 Dose: 40 mg Fluticasone/Salmeterol (Advair Diskus 250/50) 1 puff INH RQ12 [facility] - Labs Labs: 03/06/18 07:29 03/06/18 07:29 PT 11.0 SECONDS (9.7-12.2) 03/04/18 11:35 INR 1.0 03/04/18 11:35 APTT 33 SECONDS (21-34) 03/04/18 11:35 - Constitutional Appears: Non-toxic - Head Exam Head Exam: ATRAUMATIC, NORMAL INSPECTION, NORMOCEPHALIC - Eye Exam Eye Exam: EOMI, Normal appearance, PERRL Pupil Exam: NORMAL ACCOMODATION, PERRL - ENT Exam ENT Exam: Mucous Membranes Moist, Normal Exam - Neck Exam Neck Exam: Full ROM, Normal Inspection. absent: Lymphadenopathy - Respiratory Exam Respiratory Exam: Clear to Ausculation Bilateral, NORMAL BREATHING PATTERN - Cardiovascular Exam Cardiovascular Exam: REGULAR RHYTHM, +S1, +S2. absent: Murmur - GI/Abdominal Exam GI & Abdominal Exam: Soft, Normal Bowel Sounds. absent: Tenderness - Rectal Exam Rectal Exam: NORMAL INSPECTION - Exam Exam: Circumcision, NORMAL INSPECTION - Extremities Exam Extremities Exam: Full ROM, Normal Capillary Refill, Normal Inspection. absent : Joint Swelling, Pedal Edema - Back Exam Back Exam: NORMAL INSPECTION - Neurological Exam Neurological Exam: Alert, Awake, CN II-XII Intact, Normal Gait, Oriented x3 - Psychiatric Exam Psychiatric exam: Normal Affect, Normal Mood - Skin Skin Exam: Dry, Intact, Normal Color, Warm Assessment and Plan (1) Abscess of groin, right Status: Acute (2) Cellulitis Status: Acute - Assessment and Plan (Free Text) Assessment: CONT IV ANTIIBOTICS / WOUND CARE
[2018-03-06] MEDS: Lactated Ringer's 1,000 ML IV SCH (18:28)
[2018-03-06] MEDS: Fluticasone-Salmeterol 250-50mcg Diskus INH SCH (20:03)
[2018-03-07] MEDS: Oxycodone/Acetaminophen 5/325 mg Tab PO PRN ×4 (00:37→15:38)
[2018-03-07] MEDS: Sodium Chloride 0.9% 1,000 ML IV SCH ×2 (00:41→11:44)
--- NOTE | 2018-03-07 00:53 | OP ---
PROCEDURE DATE: 03/06/2018 PREOPERATIVE DIAGNOSIS: Open wound and pelvic abscess. POSTOPERATIVE DIAGNOSIS: Open wound and pelvic abscess. PROCEDURE PERFORMED: Re-drainage of pelvic abscess with debridement, repair of pelvic blood vessel and advancement flap closure. SURGEON: Nitish Siddiqui MD ANESTHESIA: General. ESTIMATED BLOOD LOSS: 30 mL. POSTOPERATIVE CONDITION: Stable. INDICATIONS FOR SURGERY: This is a staged procedure where the patient was taken back to the OR with a large open wound of the groin, status post drainage of groin and pelvic abscess. She now will undergo debridement and final closure of the wound. DESCRIPTION OF THE PROCEDURE: The patient was taken to the operating room. General anesthesia was administered, and the right groin and pelvic area was prepped and draped. The wound was re-explored, debrided and any remaining pelvic collections were drained and cultured. Bleeding was controlled using the Bovie, and a larger pelvic blood vessel was repaired. The wound was then pulse irrigated with 2 liters of saline solution and generous tissue flaps were raised full-thickness including muscle and fascia. Counter incisions were made and an advancement flap closure was performed using multiple layers of Monocryl, subcutaneous Monocryl, and dressed sterilely with bacitracin and dry sterile dressing. The patient tolerated the procedure well. Returned to recovery room in stable condition. Nitish Siddiqui MD
[2018-03-07] MEDS: Albuterol-Ipratrop 3 mg / 0.5 (3 ml) UD INH SCH ×4 (02:00→19:38)
[2018-03-07 07:20] LABS: BASO % 0.2 % (0.0-2.0); HEMOGLOBIN 10.6 g/dL (11.0-16.0); LYMPH # 0.6 K/uL (1.0-4.3); MEAN CELL VOLUME 92.6 fL (81.0-99.0); MEAN CORPUSCULAR HEMOGLOBIN 32.2 pg (27.0-31.0); MEAN CORPUSCULAR HGB CONC 34.8 g/dL (33.0-37.0); MEAN PLATELET VOLUME 8.3 fL (7.2-11.7); MONO # 0.1 K/uL (0.0-0.8); MONO % 1.1 % (0.0-10.0); NEUT # 7.5 K/uL (1.8-7.0); NEUT % 91.7 % (50.0-75.0); PLATELET COUNT 318 K/uL (130-400); RBC 3.29 Mil/uL (3.80-5.20); RED CELL DISTRIBUTION WIDTH 13.6 % (11.5-14.5); WHITE BLOOD COUNT 8.2 K/uL (4.8-10.8)
[2018-03-07] MEDS: Fluticasone-Salmeterol 250-50mcg Diskus INH SCH ×2 (07:33→19:38)
--- NOTE | 2018-03-07 07:37 | OP ---
PROCEDURE DATE: 03/04/2018 PREOPERATIVE DIAGNOSIS: Infected mass of the right groin with abscess. POSTOPERATIVE DIAGNOSIS: Infected mass of the right groin with abscess. PROCEDURE PERFORMED: Wide and deep excision infected mass of the right groin with drainage of underlying pelvic abscess and debridement. SURGEON: Nitish Siddiqui MD. TYPE OF ANESTHESIA: General. ESTIMATED BLOOD LOSS: 40 mL. POSTOPERATIVE CONDITION: Stable. INDICATIONS FOR SURGERY: This is a 37-year-old female who presents with recurrent infection in her right groin. She underwent an I and D several months ago and now represents with a different area infected. DESCRIPTION OF PROCEDURE: The patient was taken to the operating room, general anesthesia was administered, and the right groin was prepped and draped. There was a phlegmonous mass noted it was excised all the way down to clean tissue and removed. Underlying pus was noted in the retroperitoneal space and it was drained and cultured. Bleeding was controlled using a Bovie and larger blood vessels were repaired. The wound was irrigated with copious amounts of saline solution and a partial tissue flap closure was performed at the periphery. The central portion of wound was packed with wet saline gauze. The patient tolerated the procedure well, returned to recovery room in stable condition. Nitish Siddiqui MD
[2018-03-07 07:51] LABS: ALB/GLOB RATIO 1.1 (1.0-2.1); ALBUMIN 3.7 g/dL (3.5-5.0); ALT/SGPT 20 U/L (9-52); AST/SGOT 24 U/L (14-36); BLOOD UREA NITROGEN 7 mg/dL (7-17); CALCIUM 9.1 mg/dl (8.6-10.4); GFR AFRICAN-AMERICAN > 60; GFR NON-AFRICAN AMERICAN > 60
[2018-03-07] MEDS: Lactated Ringer's 1,000 ML IV SCH ×2 (07:59→20:02)
[2018-03-07] MEDS: DiphenhydrAMINE 50 mg/ml Inj IVP PRN ×2 (08:24→15:37)
[2018-03-07 09:17] LABS: BANDS 1 % (0-2); LYMPHOCYTE 6 % (20-40); MONOCYTE 2 % (0-10); NEUTROPHIL 91 % (50-75); PLATELET ESTIMATE NORMAL (NORMAL); TOTAL CELLS COUNTED 100
[2018-03-07 09:18] LABS: HYPOCHROMIC SLIGHT
[2018-03-07] MEDS: Vancomycin 1 gm/NS 200 ml 1 GM/200 ML BAG IVPB SCH ×2 (12:10→22:38)
--- NOTE | 2018-03-07 18:09 | CP.PCM.PN ---
Subjective - Date & Time of Evaluation Date of Evaluation: 03/07/18 Time of Evaluation: 09:00 - Subjective Subjective: c/o chills and pain in mouth denies fever or chills awake alert Objective - Vital Signs/Intake and Output Vital Signs (last 24 hours): Temp Pulse Resp BP Pulse Ox 99.1 F 87 20 113/68 97 03/07/18 15:00 03/07/18 15:00 03/07/18 15:00 03/07/18 15:00 03/07/18 15:00 Intake and Output: 03/07/18 03/07/18 06:59 18:59 Intake Total 1280 500 Balance 1280 500 - Medications Medications: Current Medications Albuterol/Ipratropium (Duoneb 3 Mg/0.5 Mg (3 Ml) Ud) 3 ml INH RQ6 [facility] Last Admin: 03/07/18 13:50 Dose: Not Given Alprazolam (Xanax) 0.5 mg PO Q8 PRN PRN Reason: Anxiety Dicyclomine HCl (Bentyl) 10 mg PO Q6 [facility] Last Admin: 03/07/18 17:27 Dose: 10 mg Diphenhydramine HCl (Benadryl) 25 mg IVP Q6H PRN PRN Reason: Itching / Pruritus Last Admin: 03/07/18 15:37 Dose: 25 mg Vancomycin/Sodium Chloride (Vancomycin 1 Gm/Ns 200 Ml) 1 gm in 200 mls @ 166.6 mls/hr IVPB Q12H [facility] PRN Reason: Protocol Stop: 03/10/18 11:31 Last Admin: 03/07/18 12:10 Dose: 166.6 mls/hr Lactated Ringer's (Lactated Ringer's) 1,000 mls @ 75 mls/hr IV .[id number] [facility] Last Admin: 03/07/18 07:59 Dose: Not Given Ibuprofen (Motrin Tab) 400 mg PO Q6 PRN PRN Reason: Headache Last Admin: 03/07/18 17:28 Dose: 400 mg Loratadine (Claritin) 10 mg PO DAILY [facility] Last Admin: 03/07/18 10:13 Dose: 10 mg Oxycodone/Acetaminophen (Percocet 5/325 Mg Tab) 1 tab PO Q4H PRN PRN Reason: Pain, severe (8-10) Stop: 03/07/18 20:15 Last Admin: 03/07/18 15:38 Dose: 1 tab Pantoprazole Sodium (Protonix Inj) 40 mg IVP DAILY [facility] Last Admin: 03/07/18 10:13 Dose: 40 mg Fluticasone/Salmeterol (Advair Diskus 250/50) 1 puff INH RQ12 [facility] Last Admin: 03/07/18 07:33 Dose: Not Given - Labs Labs: 03/07/18 07:09 03/07/18 07:09 PT 11.0 SECONDS (9.7-12.2) 03/04/18 11:35 INR 1.0 03/04/18 11:35 APTT 33 SECONDS (21-34) 03/04/18 11:35 - Constitutional Appears: Non-toxic, Chronically Ill - Head Exam Head Exam: NORMOCEPHALIC - Eye Exam Eye Exam: PERRL - ENT Exam ENT Exam: Mucous Membranes Dry Additional comments: ulcer over frenulum area of tongue - Neck Exam Neck Exam: absent: Lymphadenopathy - Respiratory Exam Respiratory Exam: Decreased Breath Sounds - Cardiovascular Exam Cardiovascular Exam: REGULAR RHYTHM - GI/Abdominal Exam GI & Abdominal Exam: Distended, Soft - Rectal Exam Rectal Exam: Deferred - Exam Exam: NORMAL INSPECTION - Extremities Exam Extremities Exam: absent: Pedal Edema - Back Exam Back Exam: absent: CVA tenderness (L), CVA tenderness (R) - Neurological Exam Neurological Exam: Alert, Awake Assessment and Plan (1) Abscess of groin, right Status: Acute (2) Cellulitis Status: Acute - Assessment and Plan (Free Text) Assessment: add acyclovir, magic mouth wash cultures noted cont iv antibiotics
[2018-03-07] MEDS: Mag&Al/Simet/Diphen/Lido 237 ML KIT PO SCH (19:06)
[2018-03-08 00:40] VITALS: O2SAT 98
[2018-03-08] MEDS: Mag&Al/Simet/Diphen/Lido 237 ML KIT PO SCH ×3 (01:11→12:45)
[2018-03-08] MEDS: Albuterol-Ipratrop 3 mg / 0.5 (3 ml) UD INH SCH ×2 (01:24→07:32)
[2018-03-08] MEDS: Fluticasone-Salmeterol 250-50mcg Diskus INH SCH (07:32)
[2018-03-08 08:23] LABS: BASO % 0.4 % (0.0-2.0); EOS # 0.1 K/uL (0.0-0.7); EOS % 1.2 % (0.0-4.0); HEMOGLOBIN 9.5 g/dL (11.0-16.0); LYMPH # 2.8 K/uL (1.0-4.3); LYMPH % 32.4 % (20.0-40.0); MEAN PLATELET VOLUME 8.1 fL (7.2-11.7); MONO # 0.6 K/uL (0.0-0.8); MONO % 6.6 % (0.0-10.0); NEUT # 5.2 K/uL (1.8-7.0); NEUT % 59.4 % (50.0-75.0); RBC 2.96 Mil/uL (3.80-5.20); RED CELL DISTRIBUTION WIDTH 13.9 % (11.5-14.5); WHITE BLOOD COUNT 8.7 K/uL (4.8-10.8)
[2018-03-08 08:29] VITALS: BP 122/80; PULSE 70; TEMP 98.6
[2018-03-08 08:38] LABS: ALB/GLOB RATIO 1.1 (1.0-2.1); ALBUMIN 3.3 g/dL (3.5-5.0); ALT/SGPT 20 U/L (9-52); AST/SGOT 17 U/L (14-36); BLOOD UREA NITROGEN 13 mg/dL (7-17); CALCIUM 8.5 mg/dl (8.6-10.4); GFR AFRICAN-AMERICAN > 60; GFR NON-AFRICAN AMERICAN > 60
--- NOTE | 2018-03-08 09:12 | CP.PCM.PN ---
Subjective - Date & Time of Evaluation Date of Evaluation: 03/08/18 Time of Evaluation: 09:12 - Subjective Subjective: PGY2 Note for Dr. Powell; all management as per Dr. Powell This patient was seen and examined at bedside this AM; she denies any complaints ; denies fevers/chills, BAIN, CP, SOB, abdominal pain, N/V/D, dysuria/freq/urg or lower extremity pain/swelling. Objective - Vital Signs/Intake and Output Vital Signs (last 24 hours): Temp Pulse Resp BP Pulse Ox 98.6 F 70 20 122/80 98 03/08/18 07:25 03/08/18 07:25 03/08/18 07:25 03/08/18 07:25 03/08/18 07:25 Intake and Output: 03/08/18 03/08/18 06:59 18:59 Intake Total 800 Balance 800 - Medications Medications: Current Medications Acyclovir (Zovirax) 400 mg PO TID [facility] PRN Reason: Protocol Last Admin: 03/07/18 19:05 Dose: 400 mg Albuterol/Ipratropium (Duoneb 3 Mg/0.5 Mg (3 Ml) Ud) 3 ml INH RQ6 [facility] Last Admin: 03/08/18 07:32 Dose: Not Given Alprazolam (Xanax) 0.5 mg PO Q8 PRN PRN Reason: Anxiety Dicyclomine HCl (Bentyl) 10 mg PO Q6 [facility] Last Admin: 03/08/18 06:32 Dose: 10 mg Diphenhydramine HCl (Benadryl) 25 mg IVP Q6H PRN PRN Reason: Itching / Pruritus Last Admin: 03/07/18 15:37 Dose: 25 mg Vancomycin/Sodium Chloride (Vancomycin 1 Gm/Ns 200 Ml) 1 gm in 200 mls @ 166.6 mls/hr IVPB Q12H [facility] PRN Reason: Protocol Stop: 03/10/18 11:31 Last Admin: 03/07/18 22:38 Dose: 166.6 mls/hr Lactated Ringer's (Lactated Ringer's) 1,000 mls @ 75 mls/hr IV .[id number] [facility] Last Admin: 03/07/18 20:02 Dose: Not Given Ibuprofen (Motrin Tab) 400 mg PO Q6 PRN PRN Reason: Headache Last Admin: 03/08/18 04:21 Dose: 400 mg Loratadine (Claritin) 10 mg PO DAILY [facility] Last Admin: 03/07/18 10:13 Dose: 10 mg Pantoprazole Sodium (Protonix Inj) 40 mg IVP DAILY [facility] Last Admin: 03/07/18 10:13 Dose: 40 mg Saliva Substitute (First Magic Mouthwash) 30 ml PO Q6H [facility] Last Admin: 03/08/18 06:32 Dose: 30 ml Fluticasone/Salmeterol (Advair Diskus 250/50) 1 puff INH RQ12 [facility] Last Admin: 03/08/18 07:32 Dose: 1 puff - Labs Labs: 03/08/18 08:11 03/08/18 08:11 PT 11.0 SECONDS (9.7-12.2) 03/04/18 11:35 INR 1.0 03/04/18 11:35 APTT 33 SECONDS (21-34) 03/04/18 11:35 Assessment and Plan - Assessment and Plan (Free Text) Assessment: - Constitutional Appears: Non-toxic - Head Exam Head Exam: ATRAUMATIC, NORMOCEPHALIC - Eye Exam Eye Exam: EOMI, Normal appearance - ENT Exam ENT Exam: Mucous Membranes Moist - Respiratory Exam Respiratory Exam: Clear to Ausculation Bilateral, NORMAL BREATHING PATTERN - Cardiovascular Exam Cardiovascular Exam: REGULAR RHYTHM, +S1, +S2 - GI/Abdominal Exam GI & Abdominal Exam: Soft. absent: Tenderness - Extremities Exam Additional comments: dressing on wound c/d/i - Neurological Exam Neurological Exam: Alert, Awake, Oriented x3 - Psychiatric Exam Psychiatric exam: Normal Affect, Normal Mood - Skin Skin Exam: Dry, Warm Assessment and Plan - Assessment and Plan (Free Text) Plan: 1. Hiadradenitis suppartiva/groin abscess -Surgery consult placed to Dr. Siddiqui OR today with Artur for I&D pt had groin abscess excised 03/04/18 Morphine 1mg IVP q10min prn Percocet 1t q4hrs prn -ID consult. Dr. Gastelum. recs appreciated. starting IV vancomycin 2. Hx of DM -check HGB a1c 3. hx of HTN -continue to monitor 4. hx of asthma -duonebs -advair 1 puff q12hrs 5. Anxiety -xanax 0.5mg PO q8hrs prn 6. Multifactorial allergies -Claritin -Benadryl 7. GI/DVT ppx -scds -protonix daily Case discussed with Dr. Powell All management as per Dr. Powell. The patient is stable for d/c as per Dr. Siddiqui and Dr. Powell the patient is to apply bacitracin or other topical antibiotic cream available OTC to the wound after showering it was recommended that the patient stop using creams/razor for hair removal, and that she look into having electrolysis for hair removal as it is the only viable option for hair removal in this case she should continue with all of her other outpatient medications
[2018-03-08] MEDS ORDERED: Pantoprazole 20 mg EC Tab PO ONE (10:15)
[2018-03-08] MEDS ORDERED: oxyCODONE 5 mg Immediate Release Tab PO ONE (10:15)
[2018-03-08] MEDS: Lactated Ringer's 1,000 ML IV SCH (10:22)
[2018-03-08] MEDS: Vancomycin 1 gm/NS 200 ml 1 GM/200 ML BAG IVPB SCH (11:30)
[2018-03-08] MEDS ORDERED: Pneumococcal 23-Valent Vaccine IM ONE (12:00)
== END 2018-03-08 14:03 | disposition home or self-care (01) | DRG 579 ==
LOC: C.ER 10:57 → C.9E 12:31 → C.6T 13:58 → OBSVTOIN 03-07 16:33
PROVIDERS: ADMIT Internal Medicine Pulmonary Disease; ATTEND Internal Medicine Pulmonary Disease
PROC: 0HBAXZZ Excision of Inguinal Skin, External Approach (ICD-10-PCS; principal; 2018-03-04 14:15)
PROC: 0J9C0ZZ Drainage of Pelvic Region Subcutaneous Tissue and Fascia, Open Approach (ICD-10-PCS; 2018-03-05 14:30)
PROC: 0J9C0ZZ Drainage of Pelvic Region Subcutaneous Tissue and Fascia, Open Approach (ICD-10-PCS; 2018-03-06)
DX: L02.214 Cutaneous abscess of groin (principal); K68.19 Other retroperitoneal abscess; L73.2 Hidradenitis suppurativa; N73.9 Female pelvic inflammatory disease, unspecified; J45.909 Unspecified asthma, uncomplicated; I10 Essential (primary) hypertension; F17.200 Nicotine dependence, unspecified, uncomplicated; E11.9 Type 2 diabetes mellitus without complications; Z79.4 Long term (current) use of insulin

== ENCOUNTER 2018-03-25 11:10 | Inpatient (IN) | payer BC ==
[2018-03-25 11:21] VITALS: BMI 33.4
[2018-03-25 11:56] LABS: BASO # 0.1 K/uL (0.0-0.2); EOS # 0.1 K/uL (0.0-0.7); EOS % 1.6 % (0.0-4.0); LYMPH # 2.3 K/uL (1.0-4.3); LYMPH % 43.4 % (20.0-40.0); MEAN CORPUSCULAR HEMOGLOBIN 31.7 pg (27.0-31.0); MEAN CORPUSCULAR HGB CONC 34.6 g/dL (33.0-37.0); MONO # 0.5 K/uL (0.0-0.8); MONO % 9.2 % (0.0-10.0); NEUT # 2.4 K/uL (1.8-7.0); NEUT % 44.8 % (50.0-75.0); RBC 3.48 Mil/uL (3.80-5.20); RED CELL DISTRIBUTION WIDTH 13.6 % (11.5-14.5); WHITE BLOOD COUNT 5.3 K/uL (4.8-10.8)
[2018-03-25 11:58] LABS: HCG,QUALITATIVE URINE NEGATIVE (NEGATIVE)
[2018-03-25 12:00] LABS: MEAN CELL VOLUME 91.6 fL (81.0-99.0)
[2018-03-25 12:02] LABS: PROTHROMBIN TIME 10.6 SECONDS (9.7-12.2)
[2018-03-25 12:04] LABS: SQUAMOUS EPITHIAL 11 /hpf (0-5); URINE BACTERIA RARE (<OCC); URINE BILIRUBIN NEGATIVE (NEGATIVE); URINE BLOOD NEGATIVE (NEGATIVE); URINE CLARITY Hazy (Clear); URINE COLOR Yellow (YELLOW); URINE GLUCOSE (UA) NORMAL (Normal); URINE LEUKOCYTE ESTERASE TRACE Leu/uL (Negative); URINE PROTEIN NEGATIVE (NEGATIVE); URINE UROBILINOGEN NORMAL mg/dL (0.2-1.0)
[2018-03-25 12:10] LABS: ALB/GLOB RATIO 1.2 (1.0-2.1); ALBUMIN 4.4 g/dL (3.5-5.0); ALT/SGPT 14 U/L (9-52); AST/SGOT 23 U/L (14-36); BLOOD UREA NITROGEN 11 mg/dL (7-17); CALCIUM 9.1 mg/dl (8.6-10.4); GFR AFRICAN-AMERICAN > 60; GFR NON-AFRICAN AMERICAN > 60
--- NOTE | 2018-03-25 12:42 | C.PDOC ---
History Of Present Illness 37 y/o female, presents to the ER for right groin abscess which has been present for the past 3 months. Patient states that Dr. Siddiqui referred her to the ER. Patient denies having other complaints Time Seen by Provider: 03/25/18 11:37 Chief Complaint (Nursing): Abnormal Skin Integrity History Per: Patient History/Exam Limitations: no limitations Onset/Duration Of Symptoms: Days Current Symptoms Are (Timing): Still Present Severity: Moderate Past Medical History Reviewed: Historical Data, Nursing Documentation, Vital Signs Vital Signs: Last Vital Signs Temp 98.4 F 03/25/18 11:26 Pulse 91 H 03/25/18 11:26 Resp 18 03/25/18 11:26 BP 127/81 03/25/18 11:26 Pulse Ox 100 03/25/18 14:05 - Medical History PMH: Anxiety, Asthma, Gastritis, Gall Bladder Disease, Pneumonia (MID. 2016 ) Denies: Chronic Kidney Disease Surgical History: Cholecystectomy, Endoscopy, Tonsillectomy, ( Myomectomy) - [facility] Procedures DRAINAGE OF LEFT INGUINAL REGION, OPEN APPROACH (01/07/18) DRAINAGE OF PELVIC SUBCU/FASCIA, OPEN APPROACH (03/07/18) DRAINAGE OF PERINEUM SKIN, EXTERNAL APPROACH (04/19/16) DRAINAGE OF RIGHT INGUINAL REGION, OPEN APPROACH (01/07/18) EXCISION OF GENITALIA SKIN, EXTERNAL APPROACH (03/07/18) EXCISION OF UTERUS, OPEN APPROACH (04/19/16) Family History: States: No Known Family Hx - Social History Hx Tobacco Use: Yes Hx Alcohol Use: No Hx Substance Use: No - Immunization History Hx Tetanus Toxoid Vaccination: Yes Hx Influenza Vaccination: No Hx Pneumococcal Vaccination: No Review Of Systems Except As Marked, All Systems Reviewed And Found Negative. Constitutional: Negative for: Fever, Chills Skin: Positive for: Other (right groin abscess) Physical Exam - Physical Exam Appears: Non-toxic, No Acute Distress Skin: Normal Color, Warm, Dry Head: Atraumatic, Normacephalic Eye(s): bilateral: Normal Inspection Nose: Normal Oral Mucosa: Moist Neck: Supple Chest: Symmetrical Cardiovascular: Rhythm Regular Respiratory: Normal Breath Sounds, No Rales, No Rhonchi, No Wheezing Gastrointestinal/Abdominal: Normal Exam, Soft, No Tenderness, No Guarding, No Rebound Extremity: Normal ROM, Other (right groin induration with swelling and mild erythema) Neurological/Psych: Oriented x3, Normal Speech ED Course And Treatment - Laboratory Results Result Diagrams: 03/25/18 11:49 03/25/18 11:49 O2 Sat by Pulse Oximetry: 100 (RA) Pulse Ox Interpretation: Normal Medical Decision Making Medical Decision Making: Plan: --Labs --HCG, Qual. --UA Updates: Case discussed with . Patient has been admitted under the service of for right groin abscess. Disposition Discussed With Dr.: Nitish Siddiqui Doctor Will See Patient In The: Hospital Counseled Patient/Family Regarding: Studies Performed, Diagnosis - Disposition Disposition Time: 12:42 Condition: FAIR - Clinical Impression Clinical Impression: Groin abscess - Scribe Statement The provider has reviewed the documentation as recorded by the Jennifer Fulton Provider Attestation: All medical record entries made by the Odalisibe were at my direction and personally dictated by me. I have reviewed the chart and agree that the record accurately reflects my personal performance of the history, physical exam, medical decision making, and the department course for this patient. I have also personally directed, reviewed, and agree with the discharge instructions and disposition.
--- NOTE | 2018-03-25 12:47 | C.PDOC ---
History Of Present Illness 37 y/o female, presents to the ER for right groin abscess which has been present for the past 3 months. Patient states that Dr. Siddiqui referred her to the ER. Patient denies having other complaints Time Seen by Provider: 03/25/18 11:37 Chief Complaint (Nursing): Abnormal Skin Integrity History Per: Patient History/Exam Limitations: no limitations Onset/Duration Of Symptoms: Days Current Symptoms Are (Timing): Still Present Severity: Moderate Past Medical History Vital Signs: Last Vital Signs Temp 98.4 F 03/25/18 11:26 Pulse 91 H 03/25/18 11:26 Resp 18 03/25/18 11:26 BP 127/81 03/25/18 11:26 Pulse Ox 100 03/25/18 11:26 - Medical History PMH: Anxiety, Asthma, Gastritis, Gall Bladder Disease, Pneumonia (MID. 2016 ) Denies: Chronic Kidney Disease Surgical History: Cholecystectomy, Endoscopy, Tonsillectomy, ( Myomectomy) - [email or web address] Procedures DRAINAGE OF LEFT INGUINAL REGION, OPEN APPROACH (01/07/18) DRAINAGE OF PELVIC SUBCU/FASCIA, OPEN APPROACH (03/07/18) DRAINAGE OF PERINEUM SKIN, EXTERNAL APPROACH (04/19/16) DRAINAGE OF RIGHT INGUINAL REGION, OPEN APPROACH (01/07/18) EXCISION OF GENITALIA SKIN, EXTERNAL APPROACH (03/07/18) EXCISION OF UTERUS, OPEN APPROACH (04/19/16) Family History: States: Unknown Family Hx - Social History Hx Tobacco Use: Yes Hx Alcohol Use: No Hx Substance Use: No - Immunization History Hx Tetanus Toxoid Vaccination: Yes Hx Influenza Vaccination: No Hx Pneumococcal Vaccination: No ED Course And Treatment - Laboratory Results Result Diagrams: 03/25/18 11:49 03/25/18 11:49 O2 Sat by Pulse Oximetry: 100 Disposition - Disposition Forms: [employer] (Setswana)
[2018-03-25] MEDS ORDERED: Lidocaine Hydrochloride 0 ML INJ ONE (13:11)
[2018-03-25] MEDS ORDERED: ceFAZolin 1 gm in NS 0 GM/0 ML BAG IVPB ONE (13:12)
[2018-03-25] MEDS ORDERED: Bupivacaine 0.25% Inj(30mL) IJ ONE (13:20)
[2018-03-25] MEDS ORDERED: Bupivacaine 0.25% 20 ML INJ IJ ONE (13:22)
[2018-03-25] MEDS ORDERED: Doxycycline 100 mg Inj ONE (14:02)
[2018-03-25] MEDS ORDERED: Propofol 10 mg/ml Inj (20 ML) ONE (14:05)
[2018-03-25] MEDS ORDERED: Midazolam 2 MG/2 ML VIAL ONE (14:05)
[2018-03-25] MEDS ORDERED: DiphenhydrAMINE 50 mg/ml Inj IVP STA ×2 (14:49→21:02)
[2018-03-25] MEDS: Dextrose 5%/0.45% NS 1,000 ML IV SCH (15:35)
[2018-03-25] MEDS: Oxycodone/Acetaminophen 5/325 mg Tab PO PRN (18:00)
[2018-03-25] MEDS ORDERED: Albuterol HFA 90 mcg/actuation (8 g) IH PRN (21:05)
[2018-03-25] MEDS ORDERED: Albuterol-Ipratrop 3 mg / 0.5 (3 ml) UD INH PRN (21:07)
[2018-03-25] MEDS ORDERED: FORMOTEROL IH PRN (21:08)
[2018-03-25] MEDS ORDERED: MOMETASONE IH PRN (21:08)
[2018-03-26] MEDS: Vancomycin 1 gm/NS 200 ml 1 GM/200 ML BAG IVPB SCH ×3 (00:02→22:50)
[2018-03-26] MEDS: Oxycodone/Acetaminophen 5/325 mg Tab PO PRN (01:15)
--- NOTE | 2018-03-26 02:55 | OP ---
PROCEDURE DATE: 03/25/2018 PREOPERATIVE DIAGNOSIS: Recurrent right pelvic and groin abscess. POSTOPERATIVE DIAGNOSIS: Recurrent right pelvic and groin abscess. PROCEDURE PERFORMED: Wide and deep excision of right groin mass with drainage of right groin and pelvic abscess. SURGEON: Nitish Siddiqui MD ANESTHESIA: General. ESTIMATED BLOOD LOSS: 30 mL. POSTOPERATIVE CONDITION: Stable. DESCRIPTION OF THE PROCEDURE: The patient was taken to the operating room, general anesthesia was administered, and the right groin was prepped and draped. An infected mass of the right groin was excised with wide and deep excision into the pelvic space, and the underlying pus was drained and cultured. Bleeding was controlled using a Bovie, and a larger blood vessel was repaired. The wound was irrigated with copious amounts of saline solution. A partial tissue transfer closure was performed that was packed open with wet saline gauze. Another abscess down in the pelvic and the thigh region was excised, drained and cultured. Again, bleeding was controlled with the Bovie, and a partial flap closure was performed and the central portion was packed open with wet saline gauze. The patient tolerated the procedure well, returned to recovery room in stable condition. Nitish Siddiqui MD
[2018-03-26 06:40] LABS: BASO % 0.9 % (0.0-2.0); EOS # 0.1 K/uL (0.0-0.7); EOS % 2.2 % (0.0-4.0); HEMOGLOBIN 9.7 g/dL (11.0-16.0); LYMPH # 2.7 K/uL (1.0-4.3); LYMPH % 51.6 % (20.0-40.0); MEAN CELL VOLUME 92.3 fL (81.0-99.0); MEAN CORPUSCULAR HGB CONC 33.6 g/dL (33.0-37.0); MEAN PLATELET VOLUME 8.6 fL (7.2-11.7); MONO # 0.4 K/uL (0.0-0.8); MONO % 7.8 % (0.0-10.0); NEUT # 1.9 K/uL (1.8-7.0); NEUT % 37.5 % (50.0-75.0); NRBC % 0.1 % (0.0-2.0); RBC 3.14 Mil/uL (3.80-5.20); RED CELL DISTRIBUTION WIDTH 13.6 % (11.5-14.5); WHITE BLOOD COUNT 5.2 K/uL (4.8-10.8)
[2018-03-26 06:59] LABS: ALB/GLOB RATIO 1.1 (1.0-2.1); ALBUMIN 3.3 g/dL (3.5-5.0); ALT/SGPT 24 U/L (9-52); AST/SGOT 19 U/L (14-36); BLOOD UREA NITROGEN 13 mg/dL (7-17); CALCIUM 8.3 mg/dl (8.6-10.4); GFR AFRICAN-AMERICAN > 60; GFR NON-AFRICAN AMERICAN > 60
--- NOTE | 2018-03-26 07:48 | CP.PCM.PN ---
Subjective - Date & Time of Evaluation Date of Evaluation: 03/26/18 Time of Evaluation: 07:00 - Subjective Subjective: PGY-2 Medicine Progress Note for Dr. Diehl: 37 year old female with past medical history of asthma, dermatographism, anxiety , gastritis and right groin abscess. Patient states her pain is currently an 8/ 10. She states she is having another procedure today with Dr. Siddiqui. She states she has had this groin abscess for about 3 years or more and she has been to the hospital about 3 different times because of it. She states she also can feel another abscess forming on her right bottom. She denies fevers, nausea, vomiting, chest pain, shortness of breath, diarrhea or constipation. Objective - Vital Signs/Intake and Output Vital Signs (last 24 hours): Temp Pulse Resp BP Pulse Ox 98 F 86 20 111/75 98 03/26/18 00:00 03/26/18 00:00 03/26/18 00:00 03/26/18 00:00 03/26/18 00:00 Intake and Output: 03/26/18 03/26/18 06:59 18:59 Intake Total 1000 Output Total 1100 Balance -100 - Medications Medications: Current Medications Albuterol (Ventolin Hfa 90 Mcg/Actuation (8 G)) 2 puff IH RQ6 PRN PRN Reason: Nasal congestion Albuterol/Ipratropium (Duoneb 3 Mg/0.5 Mg (3 Ml) Ud) 3 ml INH RQ6 PRN PRN Reason: Shortness of Breath Alprazolam (Xanax) 0.5 mg PO Q8 PRN PRN Reason: Anxiety Dicyclomine HCl (Bentyl) 10 mg PO Q6 [facility] Last Admin: 03/26/18 05:48 Dose: 10 mg Diphenhydramine HCl (Benadryl) 25 mg PO Q6 PRN PRN Reason: Itching / Pruritus Docusate Sodium (Colace) 100 mg PO BID [facility] Last Admin: 03/25/18 18:00 Dose: 100 mg Enoxaparin Sodium (Lovenox) 40 mg SC DAILY [facility] Home Med (Mometasone/Formoterol [Dulera 200 Mcg/5 Mcg Inhaler]) 1 puff IH BID PRN PRN Reason: Shortness of Breath Hydroxyzine HCl (Atarax) 50 mg PO Q8 PRN PRN Reason: Allergy symptoms Last Admin: 03/25/18 22:06 Dose: 50 mg Dextrose/Sodium Chloride (Dextrose 5%/0.45% Ns 1000 Ml) 1,000 mls @ 60 mls/hr IV .[id number] [facility] Last Admin: 03/25/18 15:35 Dose: 60 mls/hr Vancomycin/Sodium Chloride (Vancomycin 1 Gm/Ns 200 Ml) 1 gm in 200 mls @ 133 mls/hr IVPB Q12H ROGERIO PRN Reason: Protocol Stop: 03/30/18 23:16 Last Admin: 03/26/18 00:02 Dose: 133 mls/hr Ketorolac Tromethamine (Toradol) 30 mg IVP Q6 PRN PRN Reason: pain 8-10 Stop: 03/30/18 15:17 Last Admin: 03/26/18 05:52 Dose: 30 mg Ondansetron HCl (Zofran Inj) 4 mg IVP Q6 PRN PRN Reason: Nausea/Vomiting Ondansetron HCl (Zofran Tab) 4 mg PO Q6H PRN PRN Reason: Nausea/Vomiting Oxycodone/Acetaminophen (Percocet 5/325 Mg Tab) 2 tab PO Q4H PRN PRN Reason: pain Stop: 03/28/18 15:17 Last Admin: 03/26/18 01:15 Dose: 2 tab Pantoprazole Sodium (Protonix Inj) 40 mg IVP DAILY [facility] Pneumococcal Polyvalent Vaccine (Pneumovax 23 Vaccine) 0.5 ml SC .ONCE ONE Stop: 03/28/18 10:01 - Labs Labs: 03/26/18 06:29 03/26/18 06:29 PT 10.6 SECONDS (9.7-12.2) 03/25/18 11:49 INR 1.0 03/25/18 11:49 APTT 33 SECONDS (21-34) 03/25/18 11:49 - Constitutional Appears: No Acute Distress - Head Exam Head Exam: ATRAUMATIC, NORMAL INSPECTION - Eye Exam Eye Exam: EOMI, Normal appearance, PERRL Pupil Exam: NORMAL ACCOMODATION - ENT Exam ENT Exam: Mucous Membranes Moist - Respiratory Exam Respiratory Exam: Clear to Ausculation Bilateral, NORMAL BREATHING PATTERN - Cardiovascular Exam Cardiovascular Exam: REGULAR RHYTHM, +S1, +S2 - GI/Abdominal Exam GI & Abdominal Exam: Soft, Normal Bowel Sounds. absent: Tenderness - Extremities Exam Extremities Exam: Normal Inspection. absent: Pedal Edema, Tenderness - Neurological Exam Neurological Exam: Alert, Awake, Oriented x3 - Psychiatric Exam Psychiatric exam: Normal Affect, Normal Mood - Skin Additional comments: right groin - packing is placed with dressing; right glut - palpable abscess about 2cm - no purulence or redness present Assessment and Plan - Assessment and Plan (Free Text) Assessment: 37 year old female with past medical history of asthma, dermatographism, anxiety , gastritis and right groin abscess. Right Groin abscess - Management of Dr. Siddiqui - s/p 03/25/18: wide and deep excision of right groin mass with drainage of right groin and pelvic abscess - Wound culture (03/25): negative - ID Consult: Dr. Gastelum - Medications: * Vancomycin q12h * Zofran prn * Colace 100mg bid * Toradol 30mg IV q6 prn * Percocet 2 tabs q4prn * Dextrose @60cc/hr History of Asthma - Ventolin 2 puffs q6 prn - Duonebs q6 prn History Anxiety - Xanax .5mg q8prn History of dermatographism - Benadryl 25mg po q6 prn - Hydroxyzine 50mg po q8h prn Prophylaxis - Lovenox 40mg SC daily - SCDs - Colace 100mg bid Case discussed with attending. All medical management as per Dr. Diehl.
[2018-03-26] MEDS ORDERED: LEVOCETIRIZINE DIHYDROCHLORIDE 5 MG PO SCH (10:00)
[2018-03-26] MEDS: Enoxaparin 40 mg Syringe SC SCH (10:26)
[2018-03-26] MEDS: Dextrose 5%/0.45% NS 1,000 ML IV SCH (10:27)
--- NOTE | 2018-03-26 12:57 | CP.PCM.CON ---
History of Present Illness - History of Present Illness History of Present Illness: 37 y/o female presents to ED with complaints of painful right groin abscess. Patient states she called Dr. Siddiqui who told her to come to ED for admission for I&D procedure. ID consulted for antibiotic management Hx of multiple allergies - Medical History PMH: Anxiety, Asthma, Gastritis, Gall Bladder Disease, Pneumonia ([id number] ) Surgical History: Cholecystectomy, Endoscopy, Tonsillectomy, ( Myomectomy) - [facility] Procedures DRAINAGE OF LEFT INGUINAL REGION, OPEN APPROACH (01/07/18) DRAINAGE OF PERINEUM SKIN, EXTERNAL APPROACH (04/19/16) DRAINAGE OF RIGHT INGUINAL REGION, OPEN APPROACH (01/07/18) EXCISION OF UTERUS, OPEN APPROACH (04/19/16) Review of Systems - Review of Systems All systems: reviewed and no additional remarkable complaints except - Constitutional Constitutional: As Per HPI - EENT Eyes: absent: As Per HPI, Blind Spots, Blurred Vision, Change in Vision, Decreased Night Vision, Diplopia, Discharge, Dry Eye, Exophthalmos, Floaters, Irritation, Itchy Eyes, Loss of Peripheral Vision, Pain, Photophobia, Requires Corrective Lenses, Sees Flashes, Spots in Vision, Tunnel Vision, Other Visual Disturbances, Loss of Vision, Other Ears: absent: As Per HPI, Decreased Hearing, Ear Discharge, Ear Pain, Tinnitus, Abnormal Hearing, Disequilibrium, Dizziness, Other Nose/Mouth/Throat: absent: As Per HPI, Epistaxis, Nasal Congestion, Nasal Discharge, Nasal Obstruction, Nasal Trauma, Nose Pain, Post Nasal Drip, Sinus Pain, Sinus Pressure, Bleeding Gums, Change in Voice, Dental Pain, Dry Mouth, Dysphagia, Halitosis, Hoarsness, Lip Swelling, Mouth Lesions, Mouth Pain, Odynophagia, Sore Throat, Throat Swelling, Tongue Swelling, Facial Pain, Neck Pain, Neck Mass, Other - Breasts Breasts: absent: As Per HPI, Change in Shape, Mass, Pain, Nipple Discharge, Nipple Inversion, Skin Changes, Swelling, Other - Cardiovascular Cardiovascular: absent: As Per HPI, Acrocyanosis, Chest Pain, Chest Pain at Rest , Chest Pain with Activity, Claudication, Diaphoresis, Dyspnea, Dyspnea on Exertion, Edema, Irregular Heart Rhythm, Pain Radiating to Arm/Neck/Jaw, Leg Edema, Leg Ulcers, Lightheadedness, Orthopnea, Palpitations, Paroxysmal Nocturnal Dyspnea, Pedal Edema, Radiating Pain, Rapid Heart Rate, Slow Heart Rate, Syncope, Other - Respiratory Respiratory: absent: As Per HPI, Cough, Dyspnea, Hemoptysis, Dyspnea on Exertion , Wheezing, Snoring, Stridor, Pain on Inspiration, Chest Congestion, Excessive Mucous Production, Change in Mucous Color, Pain with Coughing, Other - Gastrointestinal Gastrointestinal: absent: As Per HPI, Abdominal Pain, Belching, Bloating, Change in Bowel Habits, Change in Stool Character, Coffee Ground Emesis, Constipation, Cramping, Diarrhea, Dyspepsia, Dysphagia, Early Satiety, Excessive Flatus, Fecal Incontinence, Heartburn, Hematemesis, Hematochezia, Loose Stools, Melena, Nausea, Odynophagia, Temesmus, Vomiting, Other - Genitourinary Genitourinary: absent: As Per HPI, Change in Urinary Stream, Difficulty Urinating, Dysuria, Flank Pain, Hematuria, Pyuria, Nocturia, Urinary Incontinence, Urinary Frequency, Urinary Hesitance, Urinary Urgency, Voiding Freq/Small Amts, Freq UTI, Hx Renal/Bladder Calculi, Hx /Renal Surgery, Bladder Distension, Other - Reproductive: Female Reproductive:Female: absent: As Per HPI, Amenorrhea, Amenorrhea/ Control, Currently Menstual, Cycle <21 Days, Cycle >35 Days, Cycle Variable, Menses 1-7 Days, Menses >/= 8 Days, Menses Variable, Cycle > 4 Weeks Between, No Menses for 6 Months, Heavy Menses, Light Menses, Normal Menses, Spotting Between Cycles , S/P Hysterectomy, Menopausal, Post Menopausal, Premenarche, Abnormal Vaginal Bleeding, Dysmenorrhea, Dyspareunia, Genital Lesions, Genital Pruritis, Pelvic Pain, Prolapse Symptoms, Sexual Dysfunction, Vaginal Discharge, Vaginal Dryness , Vaginal Odor, Vaginal Pruritis, Other - Menstruation Menstruation: absent: As Per HPI, Amenorrhea, Amenorrhea/ Control, Currently Menstual, Cycle <21 Days, Cycle >35 Days, Cycle Variable, Menses 1-7 Days, Menses >/= 8 Days, Menses Variable, Cycle > 4 Weeks Between, No Menses for 6 Months, Heavy Menses, Light Menses, Normal Menses, Spotting Between Cycles , S/P Hysterectomy, Menopausal, Post Menopausal, Premenarche, Abnormal Vaginal Bleeding, Dysmenorrhea, Other - Musculoskeletal Musculoskeletal: absent: As Per HPI, Abnormal Gait, Arthralgias, Atrophy, Back Pain, Deformity, Joint Swelling, Limited Range of Motion, Loss of Height, Muscle Cramps, Muscle Weakness, Myalgias, Neck Pain, Numbness, Radiating Pain into Limb, Stiffness, Tingling, Other - Integumentary Integumentary: As Per HPI, Skin Pain, Wounds - Neurological Neurological: absent: As Per HPI, Abnormal Gait, Abnormal Hearing, Abnormal Movements, Abnormal Speech, Behavioral Changes, Burning Sensations, Confusion, Convulsions, Disequilibrium, Dizziness, Numbness, Focal Weakness, Frequent Falls , Headaches, Lack of Coordination, Loss of Vision, Memory Loss, Paresthesias, Radicular Pain, Restless Legs, Sensory Deficit, Syncope, Tingling, Tremor, Vertigo, Weakness, Other Visual Disturbances, Other - Psychiatric Psychiatric: absent: As Per HPI, Abnormal Sleep Pattern, Anhedonia, Anxiety, Auditory Hallucinations, Behavioral Changes, Change in Appetite, Change in Libido, Confusion, Depression, Difficulty Concentrating, Hallucinations, Homicidal Ideation, Hopelessness, Irritability, Memory Loss, Mood Swings, Panic Attacks, Paranoia, Suicidal Ideation, Visual Hallucinations, Tactile Hallucinations, Other - Endocrine Endocrine: absent: As Per HPI, Change in Body Appearance, Change in Libido, Cold Intolorance, Deepening of Voice, Excessive Sweating, Fatigue, Flushing, Heat Intolorance, Increase in Ring/Shoe/Hat Size, Palpitations, Polydipsia, Polyphagia, Polyuria, Other - Hematologic/Lymphatic Hematologic: absent: As Per HPI, Easy Bleeding, Easy Bruising, Lymphadenopathy, Other Past Patient History - Infectious Disease Hx of Infectious Diseases: None - Past Medical History & Family History Past Medical History?: Yes - Past Social History Smoking Status: Light Smoker < 10 Cigarettes Daily - CARDIAC Hx Cardiac Disorders: No - PULMONARY Hx Asthma: Yes Hx Pneumonia: Yes (2016) - NEUROLOGICAL Hx Neurological Disorder: No - HEENT Hx HEENT Problems: No - RENAL Hx Chronic Kidney Disease: No - ENDOCRINE/METABOLIC Hx Endocrine Disorders: No - HEMATOLOGICAL/ONCOLOGICAL Hx Blood Disorders: No - INTEGUMENTARY Hx Dermatological Problems: Yes Other/Comment: HX: MASS RIGHT GROIN - MUSCULOSKELETAL/RHEUMATOLOGICAL Hx Falls: No - GASTROINTESTINAL Hx Gall Bladder Disease: Yes Hx Gastritis: Yes - GENITOURINARY/GYNECOLOGICAL Hx Genitourinary Disorders: Yes Hx Reproductive Disorders: Yes Other/Comment: HX: FIBROID UTERUS - PSYCHIATRIC Hx Substance Use: No - SURGICAL HISTORY Hx Cholecystectomy: Yes Hx Tonsillectomy: Yes - ANESTHESIA Hx Anesthesia: Yes Hx Anesthesia Reactions: No Hx Malignant Hyperthermia: No Has any member of the family had a problem w/ anesthesia?: Yes Meds Allergies/Adverse Reactions: Allergies Allergy/AdvReac Type Severity Reaction Status Date / Time adhesive tape Allergy Severe RASH Verified 03/25/18 11:21 ciprofloxacin [From Cipro] Allergy Intermediate RASH Verified 03/25/18 11:21 ciprofloxacin HCl Allergy Intermediate RASH Verified 03/25/18 11:21 [From Cipro] hydromorphone HCl Allergy Intermediate RASH Verified 03/25/18 11:21 [From Dilaudid] Penicillins Allergy Intermediate RASH Verified 03/25/18 11:21 shrimp Allergy Intermediate RASH Verified 03/25/18 11:21 sulfamethoxazole Allergy Intermediate RASH Verified 03/25/18 11:21 [From Bactrim] trimethoprim [From Bactrim] Allergy Intermediate RASH Verified 03/25/18 11:21 doxycycline AdvReac RASH, Verified 03/25/18 11:21 ITCHINESS, THROAT SWELLING - Medications Medications: Current Medications Albuterol (Ventolin Hfa 90 Mcg/Actuation (8 G)) 2 puff IH RQ6 PRN PRN Reason: Nasal congestion Albuterol/Ipratropium (Duoneb 3 Mg/0.5 Mg (3 Ml) Ud) 3 ml INH RQ6 PRN PRN Reason: Shortness of Breath Alprazolam (Xanax) 0.5 mg PO Q8 PRN PRN Reason: Anxiety Dicyclomine HCl (Bentyl) 10 mg PO Q6 [facility] Last Admin: 03/26/18 12:47 Dose: Not Given Diphenhydramine HCl (Benadryl) 25 mg PO Q6 PRN PRN Reason: Itching / Pruritus Docusate Sodium (Colace) 100 mg PO BID [facility] Last Admin: 03/26/18 10:26 Dose: Not Given Enoxaparin Sodium (Lovenox) 40 mg SC DAILY [facility] Last Admin: 03/26/18 10:26 Dose: Not Given Home Med (Mometasone/Formoterol [Dulera 200 Mcg/5 Mcg Inhaler]) 1 puff IH BID PRN PRN Reason: Shortness of Breath Hydroxyzine HCl (Atarax) 50 mg PO Q8 PRN PRN Reason: Allergy symptoms Last Admin: 03/25/18 22:06 Dose: 50 mg Dextrose/Sodium Chloride (Dextrose 5%/0.45% Ns 1000 Ml) 1,000 mls @ 60 mls/hr IV .[id number] [facility] Last Admin: 03/26/18 10:27 Dose: Not Given Vancomycin/Sodium Chloride (Vancomycin 1 Gm/Ns 200 Ml) 1 gm in 200 mls @ 133 mls/hr IVPB Q12H ROGERIO PRN Reason: Protocol Stop: 03/30/18 23:16 Last Admin: 03/26/18 10:29 Dose: 133 mls/hr Ketorolac Tromethamine (Toradol) 30 mg IVP Q6 PRN PRN Reason: pain 8-10 Stop: 03/30/18 15:17 Last Admin: 03/26/18 05:52 Dose: 30 mg Ondansetron HCl (Zofran Inj) 4 mg IVP Q6 PRN PRN Reason: Nausea/Vomiting Ondansetron HCl (Zofran Tab) 4 mg PO Q6H PRN PRN Reason: Nausea/Vomiting Oxycodone/Acetaminophen (Percocet 5/325 Mg Tab) 2 tab PO Q4H PRN PRN Reason: pain Stop: 03/28/18 15:17 Last Admin: 03/26/18 01:15 Dose: 2 tab Pantoprazole Sodium (Protonix Inj) 40 mg IVP DAILY [facility] Last Admin: 03/26/18 10:27 Dose: 40 mg Pneumococcal Polyvalent Vaccine (Pneumovax 23 Vaccine) 0.5 ml SC .ONCE ONE Stop: 03/28/18 10:01 Physical Exam - Constitutional Appears: Well - Head Exam Head Exam: ATRAUMATIC, NORMAL INSPECTION, NORMOCEPHALIC - Eye Exam Eye Exam: EOMI, Normal appearance, PERRL Pupil Exam: NORMAL ACCOMODATION, PERRL - ENT Exam ENT Exam: Mucous Membranes Moist, Normal Exam - Neck Exam Neck exam: Positive for: Normal Inspection - Respiratory Exam Respiratory Exam: Clear to Auscultation Bilateral, NORMAL BREATHING PATTERN - Cardiovascular Exam Cardiovascular Exam: REGULAR RHYTHM - GI/Abdominal Exam GI & Abdominal Exam: Normal Bowel Sounds, Soft. absent: Tenderness - Rectal Exam Rectal Exam: NORMAL INSPECTION - Exam Exam: Circumcision, NORMAL INSPECTION - Extremities Exam Extremities exam: Positive for: normal inspection - Back Exam Back exam: NORMAL INSPECTION - Neurological Exam Neurological exam: Alert, CN II-XII Intact, Normal Gait, Oriented x3, Reflexes Normal - Psychiatric Exam Psychiatric exam: Normal Affect, Normal Mood - Skin Skin Exam: Dry, Intact, Normal Color, Warm Additional comments: + swelling tender right groin no monica pus Results - Vital Signs Recent Vital Signs: Last Vital Signs Temp 98.1 F 03/26/18 07:00 Pulse 62 03/26/18 07:00 Resp 20 03/26/18 07:00 BP 99/62 L 03/26/18 07:00 Pulse Ox 100 03/26/18 07:00 - Labs Result Diagrams: 03/26/18 06:29 03/26/18 06:29 Labs: Laboratory Results - last 24 hr 03/26/18 03/26/18 03/26/18 06:29 06:29 09:17 WBC 5.2 RBC 3.14 L Hgb 9.7 L Hct 28.9 L MCV 92.3 MCH 31.0 MCHC 33.6 RDW 13.6 Plt Count 260 MPV 8.6 Neut % (Auto) 37.5 L Lymph % (Auto) 51.6 H [place] % (Auto) 7.8 Eos % (Auto) 2.2 Baso % (Auto) 0.9 Neut # (Auto) 1.9 Lymph # (Auto) 2.7 [place] # (Auto) 0.4 Eos # (Auto) 0.1 Baso # (Auto) 0.0 Sodium 139 Potassium 3.9 Chloride 108 H Carbon Dioxide 23 Anion Gap 12 BUN 13 Creatinine 1.0 Est GFR ( Amer) > 60 Est GFR (Non-Af Amer) > 60 Random Glucose 103 Calcium 8.3 L Total Bilirubin 0.4 AST 19 ALT 24 Alkaline Phosphatase 44 Total Protein 6.1 L Albumin 3.3 L D Globulin 2.9 Albumin/Globulin Ratio 1.1 Urine HCG, Qual Negative Assessment & Plan - Assessment and Plan (Free Text) Assessment: abscess right groin s/p I andD cont IV Vanco await OR cultures consider po zyvox on d/c
[2018-03-26] MEDS ORDERED: HYDROmorphone 0.5 mg/0.5 ml ISec IVP PRN (17:27)
[2018-03-26] MEDS ORDERED: Propofol 10 mg/ml Inj (20 ML) ONE ×2 (17:34→17:38)
[2018-03-26] MEDS ORDERED: Midazolam 2 MG/2 ML VIAL ONE (17:35)
[2018-03-26] MEDS ORDERED: Morphine 4 MG/ML VIAL IV ONE (18:20)
[2018-03-26] MEDS ORDERED: DiphenhydrAMINE 50 mg/ml Inj ONE (18:35)
[2018-03-27] MEDS: Oxycodone/Acetaminophen 5/325 mg Tab PO PRN ×4 (05:24→23:55)
[2018-03-27] MEDS: Dextrose 5%/0.45% NS 1,000 ML IV SCH ×3 (05:27→17:30)
[2018-03-27] MEDS: Enoxaparin 40 mg Syringe SC SCH (10:06)
[2018-03-27] MEDS: Vancomycin 1 gm/NS 200 ml 1 GM/200 ML BAG IVPB SCH ×2 (10:15→22:59)
[2018-03-27] MEDS: POLYETHYLENE GLYCOL 3350 17 GM/Dose PACKET PO PRN (17:48)
--- NOTE | 2018-03-28 07:22 | CP.PCM.PN ---
Subjective - Date & Time of Evaluation Date of Evaluation: 03/28/18 Time of Evaluation: 07:22 - Subjective Subjective: PGY2 Medicine Consult Note for Dr. Diehl Patient seen and examined this morning. No acute events overnight. Patient is feeling some relief but is still experience burning/pain in the groin region. She is tolerating her diet and her pain has been well controlled. Denies fevers , chills, nausea, vomiting, diarrhea, constipation, chest pain, shortness of breath, palpitations, abdominal pain, headaches, numbness or tingling. Objective - Vital Signs/Intake and Output Vital Signs (last 24 hours): Temp Pulse Resp BP Pulse Ox 98.1 F 75 20 136/86 100 03/28/18 00:00 03/28/18 00:00 03/28/18 00:00 03/28/18 00:00 03/28/18 00:00 Intake and Output: 03/28/18 03/28/18 06:59 18:59 Intake Total 880 Balance 880 - Medications Medications: Current Medications Albuterol (Ventolin Hfa 90 Mcg/Actuation (8 G)) 2 puff IH RQ6 PRN PRN Reason: Nasal congestion Albuterol/Ipratropium (Duoneb 3 Mg/0.5 Mg (3 Ml) Ud) 3 ml INH RQ6 PRN PRN Reason: Shortness of Breath Alprazolam (Xanax) 0.5 mg PO Q8 PRN PRN Reason: Anxiety Last Admin: 03/27/18 10:04 Dose: 0.5 mg Dicyclomine HCl (Bentyl) 10 mg PO Q6 [facility] Last Admin: 03/28/18 06:01 Dose: 10 mg Diphenhydramine HCl (Benadryl) 25 mg PO Q6 PRN PRN Reason: Itching / Pruritus Last Admin: 03/26/18 18:35 Dose: 25 mg Docusate Sodium (Colace) 100 mg PO BID [facility] Last Admin: 03/27/18 17:49 Dose: 100 mg Enoxaparin Sodium (Lovenox) 40 mg SC DAILY [facility] Last Admin: 03/27/18 10:06 Dose: 40 mg Hydroxyzine HCl (Atarax) 50 mg PO Q8 PRN PRN Reason: Allergy symptoms Last Admin: 03/27/18 23:55 Dose: 50 mg Dextrose/Sodium Chloride (Dextrose 5%/0.45% Ns 1000 Ml) 1,000 mls @ 60 mls/hr IV .[id number] [facility] Last Admin: 03/27/18 17:30 Dose: Not Given Vancomycin/Sodium Chloride (Vancomycin 1 Gm/Ns 200 Ml) 1 gm in 200 mls @ 133 mls/hr IVPB Q12H ROGERIO PRN Reason: Protocol Stop: 03/30/18 23:16 Last Admin: 03/27/18 22:59 Dose: 133 mls/hr Ondansetron HCl (Zofran Inj) 4 mg IVP Q6 PRN PRN Reason: Nausea/Vomiting Ondansetron HCl (Zofran Tab) 4 mg PO Q6H PRN PRN Reason: Nausea/Vomiting Oxycodone/Acetaminophen (Percocet 5/325 Mg Tab) 2 tab PO Q4H PRN PRN Reason: pain Stop: 03/28/18 15:17 Last Admin: 03/27/18 23:55 Dose: 2 tab Pantoprazole Sodium (Protonix Inj) 40 mg IVP DAILY [facility] Last Admin: 03/27/18 10:05 Dose: 40 mg Pneumococcal Polyvalent Vaccine (Pneumovax 23 Vaccine) 0.5 ml SC .ONCE ONE Stop: 03/28/18 10:01 Polyethylene Glycol (Miralax) 17 gm PO DAILY PRN PRN Reason: Constipation Last Admin: 03/27/18 17:48 Dose: 17 gm - Labs Labs: 03/26/18 06:29 03/26/18 06:29 PT 10.6 SECONDS (9.7-12.2) 03/25/18 11:49 INR 1.0 03/25/18 11:49 APTT 33 SECONDS (21-34) 03/25/18 11:49 - Constitutional Appears: No Acute Distress - Head Exam Head Exam: ATRAUMATIC, NORMOCEPHALIC - Eye Exam Eye Exam: EOMI, Normal appearance - ENT Exam ENT Exam: Mucous Membranes Moist - Neck Exam Neck Exam: absent: Lymphadenopathy - Respiratory Exam Respiratory Exam: Clear to Ausculation Bilateral, NORMAL BREATHING PATTERN. absent: Accessory Muscle Use, Rales, Rhonchi, Wheezes, Respiratory Distress - Cardiovascular Exam Cardiovascular Exam: REGULAR RHYTHM, +S1, +S2 - GI/Abdominal Exam GI & Abdominal Exam: Soft, Normal Bowel Sounds. absent: Distended, Firm, Guarding, Rigid, Tenderness - Exam Additional comments: right groin - wound left open - Extremities Exam Extremities Exam: absent: Calf Tenderness, Pedal Edema - Neurological Exam Neurological Exam: Alert, Awake, CN II-XII Intact, Oriented x3 - Psychiatric Exam Psychiatric exam: Normal Affect, Normal Mood - Skin Skin Exam: Dry, Warm Additional comments: right groin wound left open Assessment and Plan - Assessment and Plan (Free Text) Plan: Right Groin abscess - Management of Dr. Siddiqui - s/p 03/25/18: wide and deep excision of right groin mass with drainage of right groin and pelvic abscess - scheduled for OR tomorrow morning - Wound culture (03/25): negative - ID Consult: Dr. Gastelum - Medications: * Vancomycin q12h * Zofran prn * Colace 100mg bid * Toradol 30mg IV q6 prn * Percocet 2 tabs q4prn * Dextrose @60cc/hr History of Asthma - Ventolin 2 puffs q6 prn - Duonebs q6 prn History Anxiety - Xanax .5mg q8prn History of dermatographism - Benadryl 25mg po q6 prn - Hydroxyzine 50mg po q8h prn Prophylaxis - Lovenox 40mg SC daily - SCDs - Colace 100mg bid Case discussed with attending. All medical management as per Dr. Diehl. [facility] PGY2
[2018-03-28] MEDS: Oxycodone/Acetaminophen 5/325 mg Tab PO PRN ×2 (08:45→18:26)
[2018-03-28] MEDS ORDERED: Pneumococcal 23-Valent Vaccine SC ONE (10:00)
[2018-03-28] MEDS: Dextrose 5%/0.45% NS 1,000 ML IV SCH ×2 (10:30→15:09)
[2018-03-28] MEDS: Enoxaparin 40 mg Syringe SC SCH (11:00)
[2018-03-28] MEDS: Vancomycin 1 gm/NS 200 ml 1 GM/200 ML BAG IVPB SCH ×2 (11:18→23:43)
[2018-03-28] MEDS ORDERED: Propofol 10 mg/ml Inj (20 ML) ONE (12:50)
[2018-03-28] MEDS ORDERED: Midazolam 2 MG/2 ML VIAL ONE (12:50)
[2018-03-28] MEDS: Lactated Ringer's 1,000 ML IV SCH ×3 (13:45→23:45)
--- NOTE | 2018-03-28 18:23 | CP.PCM.PN ---
Subjective - Date & Time of Evaluation Date of Evaluation: 03/28/18 Time of Evaluation: 09:00 - Subjective Subjective: afebrile awake alert wound left open for OR in am Objective - Vital Signs/Intake and Output Vital Signs (last 24 hours): Temp Pulse Resp BP Pulse Ox 98 F 71 20 132/87 97 03/28/18 15:30 03/28/18 15:30 03/28/18 15:30 03/28/18 15:30 03/28/18 15:30 Intake and Output: 03/28/18 03/28/18 06:59 18:59 Intake Total 1360 930 Output Total 500 Balance 860 930 - Medications Medications: Current Medications Albuterol (Ventolin Hfa 90 Mcg/Actuation (8 G)) 2 puff IH RQ6 PRN PRN Reason: Nasal congestion Albuterol/Ipratropium (Duoneb 3 Mg/0.5 Mg (3 Ml) Ud) 3 ml INH RQ6 PRN PRN Reason: Shortness of Breath Last Admin: 03/28/18 11:24 Dose: 3 ml Alprazolam (Xanax) 0.5 mg PO Q8 PRN PRN Reason: Anxiety Last Admin: 03/28/18 15:40 Dose: 0.5 mg Dicyclomine HCl (Bentyl) 10 mg PO Q6 ROGERIO Last Admin: 03/28/18 17:33 Dose: 10 mg Diphenhydramine HCl (Benadryl) 25 mg PO Q6 PRN PRN Reason: Itching / Pruritus Last Admin: 03/28/18 11:11 Dose: 25 mg Docusate Sodium (Colace) 100 mg PO BID [facility] Last Admin: 03/28/18 17:31 Dose: 100 mg Enoxaparin Sodium (Lovenox) 40 mg SC DAILY [facility] Last Admin: 03/28/18 11:00 Dose: Not Given Hydroxyzine HCl (Atarax) 50 mg PO Q8 PRN PRN Reason: Allergy symptoms Last Admin: 03/28/18 15:40 Dose: 50 mg Vancomycin/Sodium Chloride (Vancomycin 1 Gm/Ns 200 Ml) 1 gm in 200 mls @ 133 mls/hr IVPB Q12H ROGERIO PRN Reason: Protocol Stop: 03/30/18 23:16 Last Admin: 03/28/18 11:18 Dose: 133 mls/hr Lactated Ringer's (Lactated Ringer's) 1,000 mls @ 100 mls/hr IV .Q10H ROGERIO Last Admin: 03/28/18 17:25 Dose: 100 mls/hr Acetaminophen (Ofirmev) 100 mls @ 400 mls/hr IV Q6 PRN PRN Reason: Pain, moderate (4-7) Stop: 03/29/18 13:38 Last Admin: 03/28/18 13:50 Dose: 100 mls Ondansetron HCl (Zofran Inj) 4 mg IVP Q6 PRN PRN Reason: Nausea/Vomiting Ondansetron HCl (Zofran Tab) 4 mg PO Q6H PRN PRN Reason: Nausea/Vomiting Oxycodone/Acetaminophen (Percocet 5/325 Mg Tab) 2 tab PO Q4H PRN PRN Reason: Pain, moderate (4-7) Stop: 03/31/18 17:50 Pantoprazole Sodium (Protonix Ec Tab) 40 mg PO DAILY ROGERIO Polyethylene Glycol (Miralax) 17 gm PO DAILY PRN PRN Reason: Constipation Last Admin: 03/27/18 17:48 Dose: 17 gm - Labs Labs: 03/26/18 06:29 03/26/18 06:29 PT 10.6 SECONDS (9.7-12.2) 03/25/18 11:49 INR 1.0 03/25/18 11:49 APTT 33 SECONDS (21-34) 03/25/18 11:49 - Constitutional Appears: Non-toxic, Chronically Ill - Head Exam Head Exam: NORMOCEPHALIC - Eye Exam Eye Exam: PERRL Pupil Exam: NORMAL ACCOMODATION - ENT Exam ENT Exam: Mucous Membranes Dry - Neck Exam Neck Exam: absent: Lymphadenopathy - Respiratory Exam Respiratory Exam: Decreased Breath Sounds - Cardiovascular Exam Cardiovascular Exam: REGULAR RHYTHM - GI/Abdominal Exam GI & Abdominal Exam: Distended, Soft - Rectal Exam Rectal Exam: Deferred - Exam Exam: NORMAL INSPECTION - Extremities Exam Extremities Exam: absent: Pedal Edema - Back Exam Back Exam: absent: CVA tenderness (L), CVA tenderness (R) - Neurological Exam Neurological Exam: Alert, Awake, CN II-XII Intact, Oriented x3 - Psychiatric Exam Psychiatric exam: Normal Mood - Skin Skin Exam: Dry Assessment and Plan (1) Groin abscess Status: Acute - Assessment and Plan (Free Text) Assessment: wound growing coag neg staph improving on Vanco cont Vanco for now then zyvox PO upon discharge for 7 days
[2018-03-28] MEDS: Morphine 4 MG/ML VIAL IVP PRN (20:13)
--- NOTE | 2018-03-29 01:28 | OP ---
PROCEDURE DATE: 03/28/2018 PREOPERATIVE DIAGNOSIS: Extensive right pelvic and groin abscess. POSTOPERATIVE DIAGNOSIS: Extensive right pelvic and groin abscess. PROCEDURE PERFORMED: Re-drainage of extensive right pelvic groin abscess with debridement, repair of pelvic blood vessel and partial tissue flap closure. SURGEON: Nitish Siddiqui MD ANESTHESIA: General. BLOOD LOSS: 30 mL. POSTOPERATIVE CONDITION: Stable. INDICATIONS FOR SURGERY: This is a staged procedure. The patient with a large right groin and pelvic abscess, taken back to the operating room for change of packing under anesthesia, debridement and partial closure. DESCRIPTION OF PROCEDURE: The patient was taken to the operating room. General anesthesia was administered. The right groin and pelvic area was prepped and draped. The previous packings were removed prior to this. Both large wounds were then aggressively debrided and pulse irrigated. Bleeding was controlled using Bovie. Larger pelvic blood vessels were repaired. The wound was irrigated, was pulse irrigated with saline and Kantrex solution, and all remaining collections were drained and cultured. A partial advancement flap closure was performed by raising flaps making counter incisions and using multiple layers of Monocryl. Central portion of each wound was packed open with saline gauze. The patient tolerated the procedure well, returned to recovery room in stable condition. Nitish Siddiqui MD
[2018-03-29] MEDS: Morphine 4 MG/ML VIAL IVP PRN ×3 (02:17→20:15)
[2018-03-29] MEDS: Oxycodone/Acetaminophen 5/325 mg Tab PO PRN (05:48)
--- NOTE | 2018-03-29 07:14 | CP.PCM.PN ---
Subjective - Date & Time of Evaluation Date of Evaluation: 03/29/18 Time of Evaluation: 07:13 - Subjective Subjective: Internal Medicine Progress Note - Dr Diehl Service Patient seen and examined at bedside. Per nursing no acute events overnight. Patient is going to the OR today. She states that she is having low back pain and swelling with right hip pain. Denies fevers, chills, headaches, dizziness, cp, palpitations, sob, urinary symptoms, changes in bowel habits. Objective - Vital Signs/Intake and Output Vital Signs (last 24 hours): Temp Pulse Resp BP Pulse Ox 98.5 F 74 20 144/75 100 03/29/18 00:00 03/29/18 00:00 03/29/18 00:00 03/29/18 00:00 03/29/18 00:00 Intake and Output: 03/29/18 03/29/18 06:59 18:59 Intake Total 550 Output Total 1000 Balance -450 - Medications Medications: Current Medications Albuterol (Ventolin Hfa 90 Mcg/Actuation (8 G)) 2 puff IH RQ6 PRN PRN Reason: Nasal congestion Albuterol/Ipratropium (Duoneb 3 Mg/0.5 Mg (3 Ml) Ud) 3 ml INH RQ6 PRN PRN Reason: Shortness of Breath Last Admin: 03/28/18 11:24 Dose: 3 ml Alprazolam (Xanax) 0.5 mg PO Q8 PRN PRN Reason: Anxiety Last Admin: 03/28/18 15:40 Dose: 0.5 mg Dicyclomine HCl (Bentyl) 10 mg PO Q6 ROGERIO Last Admin: 03/29/18 06:04 Dose: 10 mg Diphenhydramine HCl (Benadryl) 25 mg PO Q6 PRN PRN Reason: Itching / Pruritus Last Admin: 03/29/18 00:27 Dose: 25 mg Docusate Sodium (Colace) 100 mg PO BID [facility] Last Admin: 03/28/18 17:31 Dose: 100 mg Enoxaparin Sodium (Lovenox) 40 mg SC DAILY [facility] Last Admin: 03/28/18 11:00 Dose: Not Given Hydroxyzine HCl (Atarax) 50 mg PO Q8 PRN PRN Reason: Allergy symptoms Last Admin: 03/29/18 00:07 Dose: 50 mg Vancomycin/Sodium Chloride (Vancomycin 1 Gm/Ns 200 Ml) 1 gm in 200 mls @ 133 mls/hr IVPB Q12H ROGERIO PRN Reason: Protocol Stop: 03/30/18 23:16 Last Admin: 03/28/18 23:43 Dose: 133 mls/hr Lactated Ringer's (Lactated Ringer's) 1,000 mls @ 100 mls/hr IV .Q10H ROGERIO Last Admin: 03/28/18 23:45 Dose: Not Given Acetaminophen (Ofirmev) 100 mls @ 400 mls/hr IV Q6 PRN PRN Reason: Pain, moderate (4-7) Stop: 03/29/18 13:38 Last Admin: 03/28/18 13:50 Dose: 100 mls Morphine Sulfate (Morphine) 4 mg IVP Q6 PRN PRN Reason: Pain, severe (8-10) Last Admin: 03/29/18 02:17 Dose: 4 mg Ondansetron HCl (Zofran Inj) 4 mg IVP Q6 PRN PRN Reason: Nausea/Vomiting Ondansetron HCl (Zofran Tab) 4 mg PO Q6H PRN PRN Reason: Nausea/Vomiting Oxycodone/Acetaminophen (Percocet 5/325 Mg Tab) 2 tab PO Q4H PRN PRN Reason: Pain, moderate (4-7) Stop: 03/31/18 17:50 Last Admin: 03/29/18 05:48 Dose: 2 tab Pantoprazole Sodium (Protonix Ec Tab) 40 mg PO DAILY ROGERIO Polyethylene Glycol (Miralax) 17 gm PO DAILY PRN PRN Reason: Constipation Last Admin: 03/27/18 17:48 Dose: 17 gm - Labs Labs: 03/26/18 06:29 03/26/18 06:29 PT 10.6 SECONDS (9.7-12.2) 03/25/18 11:49 INR 1.0 03/25/18 11:49 APTT 33 SECONDS (21-34) 03/25/18 11:49 - Additional Findings Additional findings: - Constitutional Appears: No Acute Distress - Head Exam Head Exam: ATRAUMATIC, NORMOCEPHALIC - Eye Exam Eye Exam: EOMI, Normal appearance - ENT Exam ENT Exam: Mucous Membranes Moist - Neck Exam Neck Exam: absent: Lymphadenopathy - Respiratory Exam Respiratory Exam: Clear to Ausculation Bilateral, NORMAL BREATHING PATTERN. absent: Accessory Muscle Use, Rales, Rhonchi, Wheezes, Respiratory Distress - Cardiovascular Exam Cardiovascular Exam: REGULAR RHYTHM, +S1, +S2 - GI/Abdominal Exam GI & Abdominal Exam: Soft, Normal Bowel Sounds. absent: Distended, Firm, Guarding, Rigid, Tenderness - Exam Additional comments: right groin - wound left open - Extremities Exam Extremities Exam: absent: Calf Tenderness, Pedal Edema - Neurological Exam Neurological Exam: Alert, Awake, CN II-XII Intact, Oriented x3 - Psychiatric Exam Psychiatric exam: Normal Affect, Normal Mood - Skin Skin Exam: Dry, Warm Additional comments: right groin wound left open Back Exam: lower back edema, indurated, tender to palpation Assessment and Plan - Assessment and Plan (Free Text) Assessment: Right Groin abscess - Management of Dr. Siddiqui - s/p 03/25/18: wide and deep excision of right groin mass with drainage of right groin and pelvic abscess - scheduled for OR tomorrow morning - Wound culture (03/25): negative - ID Consult: Dr. Gastelum (continue Vancomycin, can transition to PO zyvox x 7 days upon discharge) - Medications: * Vancomycin q12h * Zofran prn * Colace 100mg bid * Toradol 30mg IV q6 prn * Percocet 2 tabs q4prn * Dextrose @60cc/hr Low Back Pain/swelling -Pelvic CT with focus on Lumbar and Hip ordered to rule out abscess History of Asthma - Ventolin 2 puffs q6 prn - Duonebs q6 prn History Anxiety - Xanax .5mg q8prn History of dermatographism - Benadryl 25mg po q6 prn - Hydroxyzine 50mg po q8h prn Prophylaxis - Lovenox 40mg SC daily - SCDs - Colace 100mg bid Case discussed with attending. All medical management as per Dr. Diehl. Rosalina Peoples DO PGY2
[2018-03-29] MEDS: Pantoprazole 40 mg EC Tab PO SCH (09:07)
[2018-03-29] MEDS: POLYETHYLENE GLYCOL 3350 17 GM/Dose PACKET PO PRN (09:07)
[2018-03-29] MEDS: Lactated Ringer's 1,000 ML IV SCH ×3 (10:00→19:45)
[2018-03-29] MEDS: Enoxaparin 40 mg Syringe SC SCH (11:37)
[2018-03-29] MEDS: Vancomycin 1 gm/NS 200 ml 1 GM/200 ML BAG IVPB SCH ×2 (11:44→22:15)
[2018-03-29] MEDS ORDERED: Lactated Ringer's 1,000 ML IV ONE (13:45)
[2018-03-29] MEDS ORDERED: Midazolam 2 MG/2 ML VIAL ONE (13:53)
[2018-03-29] MEDS ORDERED: Propofol 10 mg/ml Inj (20 ML) ONE (13:55)
[2018-03-29] MEDS ORDERED: Bacitracin Ointment 30 GM TUBE ONE (14:13)
[2018-03-29] MEDS ORDERED: DiphenhydrAMINE 50 mg/ml Inj IVP PRN (14:29)
[2018-03-29] MEDS ORDERED: Iodixanol 320 MG/ML 100 ML BOTTLE IV ONE (17:07)
[2018-03-29] MEDS ORDERED: Iohexol 240 (50 ml) PO ONE (17:15)
--- NOTE | 2018-03-29 18:20 | CP.PCM.PN ---
Subjective - Date & Time of Evaluation Date of Evaluation: 03/29/18 Time of Evaluation: 09:00 - Subjective Subjective: RX IN PROGRESS TOLERATED PROCEDURE NAD Objective - Vital Signs/Intake and Output Vital Signs (last 24 hours): Temp Pulse Resp BP Pulse Ox 98.5 F 65 17 133/83 99 03/29/18 15:30 03/29/18 15:30 03/29/18 15:30 03/29/18 15:30 03/29/18 15:30 Intake and Output: 03/29/18 03/29/18 06:59 18:59 Intake Total 1350 Output Total 1600 Balance -250 - Medications Medications: Current Medications Albuterol (Ventolin Hfa 90 Mcg/Actuation (8 G)) 2 puff IH RQ6 PRN PRN Reason: Nasal congestion Albuterol/Ipratropium (Duoneb 3 Mg/0.5 Mg (3 Ml) Ud) 3 ml INH RQ6 PRN PRN Reason: Shortness of Breath Last Admin: 03/28/18 11:24 Dose: 3 ml Alprazolam (Xanax) 0.5 mg PO Q8 PRN PRN Reason: Anxiety Last Admin: 03/29/18 11:42 Dose: 0.5 mg Dicyclomine HCl (Bentyl) 10 mg PO Q6 ROGERIO Last Admin: 03/29/18 17:38 Dose: 10 mg Diphenhydramine HCl (Benadryl) 25 mg PO Q6 PRN PRN Reason: Itching / Pruritus Last Admin: 03/29/18 08:43 Dose: 25 mg Docusate Sodium (Colace) 100 mg PO BID [facility] Last Admin: 03/29/18 17:37 Dose: 100 mg Enoxaparin Sodium (Lovenox) 40 mg SC DAILY [facility] Last Admin: 03/29/18 11:37 Dose: Not Given Hydroxyzine HCl (Atarax) 50 mg PO Q8 PRN PRN Reason: Allergy symptoms Last Admin: 03/29/18 11:41 Dose: 50 mg Vancomycin/Sodium Chloride (Vancomycin 1 Gm/Ns 200 Ml) 1 gm in 200 mls @ 133 mls/hr IVPB Q12H ROGERIO PRN Reason: Protocol Stop: 03/30/18 23:16 Last Admin: 03/29/18 11:44 Dose: 133 mls/hr Lactated Ringer's (Lactated Ringer's) 1,000 mls @ 100 mls/hr IV .Q10H [facility] Last Admin: 03/29/18 17:46 Dose: 100 mls/hr Morphine Sulfate (Morphine) 4 mg IVP Q6 PRN PRN Reason: Pain, severe (8-10) Last Admin: 03/29/18 08:43 Dose: 4 mg Ondansetron HCl (Zofran Inj) 4 mg IVP Q6 PRN PRN Reason: Nausea/Vomiting Ondansetron HCl (Zofran Tab) 4 mg PO Q6H PRN PRN Reason: Nausea/Vomiting Oxycodone/Acetaminophen (Percocet 5/325 Mg Tab) 2 tab PO Q4H PRN PRN Reason: Pain, moderate (4-7) Stop: 03/31/18 17:50 Last Admin: 03/29/18 05:48 Dose: 2 tab Pantoprazole Sodium (Protonix Ec Tab) 40 mg PO DAILY [facility] Last Admin: 03/29/18 09:07 Dose: 40 mg Polyethylene Glycol (Miralax) 17 gm PO DAILY PRN PRN Reason: Constipation Last Admin: 03/29/18 09:07 Dose: 17 gm - Labs Labs: 03/26/18 06:29 03/26/18 06:29 PT 10.6 SECONDS (9.7-12.2) 03/25/18 11:49 INR 1.0 03/25/18 11:49 APTT 33 SECONDS (21-34) 03/25/18 11:49 - Constitutional Appears: Non-toxic, Chronically Ill - Head Exam Head Exam: NORMOCEPHALIC - Eye Exam Eye Exam: PERRL - ENT Exam ENT Exam: Mucous Membranes Dry - Neck Exam Neck Exam: absent: Lymphadenopathy - Respiratory Exam Respiratory Exam: Decreased Breath Sounds - Cardiovascular Exam Cardiovascular Exam: REGULAR RHYTHM - GI/Abdominal Exam GI & Abdominal Exam: Distended, Soft - Rectal Exam Rectal Exam: Deferred - Exam Exam: NORMAL INSPECTION Assessment and Plan (1) Groin abscess Status: Acute - Assessment and Plan (Free Text) Plan: CONT IV RX AND WOUND CARE + COAG NEG STAPH IN WOUND SENS TO VANCO
[2018-03-29 22:47] VITALS: RESP 20; O2SAT 98
--- NOTE | 2018-03-30 01:42 | OP ---
PROCEDURE DATE: 03/29/2018 PREOPERATIVE DIAGNOSIS: Extensive right pelvic and groin abscess. POSTOPERATIVE DIAGNOSIS: Extensive right pelvic and groin abscess. PROCEDURE PERFORMED: Redebridement multiple abscess, cavities with redrainage and tissue flap closure. SURGEON: Nitish Siddiqui MD ANESTHESIA: General. BLOOD LOSS: 30 mL. POSTOPERATIVE CONDITION: Stable. INDICATIONS FOR SURGERY: This is a staged procedure in which the patient had many infected wounds of the right groin, status post drainage of multiple abscesses. She is now taken back for final pulse irrigation and closure. DESCRIPTION OF PROCEDURE: The patient was taken to the operating room, general anesthesia was administered. The right groin was prepped and draped. The wounds were all pulse irrigated, debrided, and any remaining collections were drained and cultured. Bleeding was controlled using the Bovie, and larger vessels were repaired. Tissue flaps were raised full-thickness, and advancement flap closures were performed loosely with Monocryl. The patient tolerated the procedure well. Returned to recovery room in stable condition. Nitish Siddiqui MD
[2018-03-30] MEDS: Morphine 4 MG/ML VIAL IVP PRN ×2 (03:35→10:06)
[2018-03-30] MEDS: Lactated Ringer's 1,000 ML IV SCH (06:23)
[2018-03-30 06:44] LABS: BASO % 0.3 % (0.0-2.0); EOS % 0.2 % (0.0-4.0); HEMOGLOBIN 10.7 g/dL (11.0-16.0); LYMPH # 0.6 K/uL (1.0-4.3); LYMPH % 11.5 % (20.0-40.0); MEAN CELL VOLUME 91.7 fL (81.0-99.0); MEAN CORPUSCULAR HGB CONC 33.8 g/dL (33.0-37.0); MEAN PLATELET VOLUME 8.5 fL (7.2-11.7); MONO # 0.1 K/uL (0.0-0.8); MONO % 1.6 % (0.0-10.0); NEUT # 4.5 K/uL (1.8-7.0); NEUT % 86.4 % (50.0-75.0); NRBC % 0.1 % (0.0-2.0); RBC 3.45 Mil/uL (3.80-5.20); RED CELL DISTRIBUTION WIDTH 13.5 % (11.5-14.5); WHITE BLOOD COUNT 5.2 K/uL (4.8-10.8)
[2018-03-30 06:52] LABS: BLOOD UREA NITROGEN 12 mg/dL (7-17); CALCIUM 9.3 mg/dl (8.6-10.4); GFR AFRICAN-AMERICAN > 60; GFR NON-AFRICAN AMERICAN > 60
[2018-03-30 08:56] VITALS: BP 138/91; PULSE 94; TEMP 98.2
[2018-03-30] MEDS: Pantoprazole 40 mg EC Tab PO SCH (10:06)
[2018-03-30] MEDS: Enoxaparin 40 mg Syringe SC SCH (10:06)
[2018-03-30] MEDS: Vancomycin 1 gm/NS 200 ml 1 GM/200 ML BAG IVPB SCH (11:49)
[2018-03-30] MEDS: Oxycodone/Acetaminophen 5/325 mg Tab PO PRN (13:37)
--- NOTE | 2018-03-30 17:20 | CT ---
PROCEDURE: CT Abdomen and Pelvis with Oral contrast. HISTORY: R/O abscess, please also focus on Right Hip COMPARISON: Comparison made with prior CT scan abdomen pelvis dated 11/20/2017. TECHNIQUE: Contiguous axial images of the abdomen and pelvis following oral and intravenous injection of approximately 100 cc Visipaque 320 contrast material. Additional 2D sagittal and coronal reformats generated. Radiation dose: Total exam DLP = mGy-cm. This CT exam was performed using one or more of the following dose reduction techniques: Automated exposure control, adjustment of the mA and/or kV according to patient size, and/or use of iterative reconstruction technique. Total exam DLP = 1083.34 mGy-cm. FINDINGS: LOWER THORAX: Minor or scarring changes both lung bases left greater than right. . . No focal consolidation. No evidence of effusion or basilar pneumothorax. LIVER: The liver exhibits relatively normal size. No evidence of hepatic mass collection or calcification. Portal and splenic veins are opacified. . GALLBLADDER AND BILE DUCTS: Cholecystectomy. PANCREAS: Unremarkable. No mass. No ductal dilatation. SPLEEN: Spleen exhibits normal size and attenuation without mass collection or calcification. The ADRENALS: Unremarkable. KIDNEYS AND URETERS: Unremarkable. No stone or hydronephrosis. BLADDER: Grossly unremarkable. REPRODUCTIVE: There may be a involuting or hemorrhagic right adnexal cyst measuring 19 mm. APPENDIX: Appendix appears unremarkable. BOWEL: Evaluation of the bowel slightly limited due to incomplete opacification. Stomach is distended with oral contrast material food debris and air. Visualized loops of small bowel exhibit normal contour and caliber. No evidence of acute mechanical small bowel obstruction. Stool and air seen throughout the large bowel. The wall of the cecum appears somewhat thickened which may be secondary to unopacified stool however the possibility of an inflammatory process is not excluded. Clinical correlation recommended. PERITONEUM: Unremarkable. No fluid collection. No free air. LYMPH NODES: Unremarkable. No enlarged lymph nodes. VASCULATURE: Unremarkable. No aortic aneurysm. BONES: Minor multilevel degenerative spondylosis of the lower thoracic the lumbar spine. OTHER FINDINGS: Note made of what appears represent localized cellulitis with mild overlying skin thickening in the right inguinal region. No drainable fluid collection/abscess. No subcutaneous air. Few small bilateral inguinal lymph nodes are present. . Minimal infiltration changes of the subcutaneous tissues lower abdomen and pelvis region bilaterally possibly representing mild anasarca or dependent edema IMPRESSION: Findings consistent with a cellulitis right inguinal region. Status post cholecystectomy. Apparent wall thickening of the cecum though this is likely due to under opacified stool however the possibility of an inflammatory process not excluded. Clinical correlation recommended. Small involuting right adnexal cyst as above.
== END 2018-03-30 15:15 | disposition home or self-care (01) | DRG 581 ==
LOC: C.ER 11:10 → C.9S 12:40 → C.ER 12:41 → C.3T 16:25
PROVIDERS: ADMIT Surgery; ATTEND Surgery
PROC: 0HDAXZZ Extraction of Inguinal Skin, External Approach (ICD-10-PCS; 2018-03-25)
PROC: 0Y950ZZ Drainage of Right Inguinal Region, Open Approach (ICD-10-PCS; principal; 2018-03-25 17:45)
PROC: 0Y950ZZ Drainage of Right Inguinal Region, Open Approach (ICD-10-PCS; 2018-03-28)
PROC: 0Y950ZZ Drainage of Right Inguinal Region, Open Approach (ICD-10-PCS; 2018-03-29)
PROC: 0HBAXZZ Excision of Inguinal Skin, External Approach (ICD-10-PCS; 2018-03-29)
DX: L02.214 Cutaneous abscess of groin (principal); F17.210 Nicotine dependence, cigarettes, uncomplicated; B95.7 Other staphylococcus as the cause of diseases classified elsewhere; J45.909 Unspecified asthma, uncomplicated; N73.9 Female pelvic inflammatory disease, unspecified; Z87.01 Personal history of pneumonia (recurrent); K29.70 Gastritis, unspecified, without bleeding

== ENCOUNTER 2018-04-17 12:12 | Inpatient (IN) | payer BC ==
[2018-04-17 12:12] VITALS: BMI 33.4
--- NOTE | 2018-04-17 13:45 | C.PDOC ---
History Of Present Illness 37yo female, comes to ER for evaluation of abscess to bilateral groin region. Patient referred to ER by Dr. Siddiqui for admission under Dr. Diehl. Patient currently denies any fever, chills, chest pain, shortness of breath, or abdominal pain. She offers no additional medical complaints. Time Seen by Provider: 04/17/18 12:49 Chief Complaint (Nursing): Abnormal Skin Integrity History Per: Patient History/Exam Limitations: no limitations Past Medical History Reviewed: Historical Data, Nursing Documentation, Vital Signs Vital Signs: Last Vital Signs Temp 97.9 F 04/17/18 12:18 Pulse 60 04/17/18 12:18 Resp 16 04/17/18 12:18 BP 106/74 04/17/18 12:18 Pulse Ox 98 04/17/18 14:30 - Medical History PMH: Anxiety, Asthma, Gastritis, Gall Bladder Disease, Pneumonia (MID. 2016 ) Denies: Chronic Kidney Disease Surgical History: Cholecystectomy, Endoscopy, Tonsillectomy, ( Myomectomy) - [facility] Procedures DRAINAGE OF LEFT INGUINAL REGION, OPEN APPROACH (01/07/18) DRAINAGE OF PELVIC SUBCU/FASCIA, OPEN APPROACH (03/07/18) DRAINAGE OF PERINEUM SKIN, EXTERNAL APPROACH (04/19/16) DRAINAGE OF RIGHT INGUINAL REGION, OPEN APPROACH (03/25/18) EXCISION OF GENITALIA SKIN, EXTERNAL APPROACH (03/25/18) EXCISION OF UTERUS, OPEN APPROACH (04/19/16) EXTRACTION OF GENITALIA SKIN, EXTERNAL APPROACH (03/25/18) Family History: States: No Known Family Hx, Unknown Family Hx - Social History Hx Tobacco Use: Yes Hx Alcohol Use: No Hx Substance Use: No - Immunization History Hx Tetanus Toxoid Vaccination: Yes Hx Influenza Vaccination: No Hx Pneumococcal Vaccination: No Review Of Systems Except As Marked, All Systems Reviewed And Found Negative. Constitutional: Negative for: Fever, Chills Cardiovascular: Negative for: Chest Pain Respiratory: Negative for: Shortness of Breath Gastrointestinal: Negative for: Abdominal Pain Skin: Positive for: Other (abscess to bilateral groin region) Physical Exam - Physical Exam Appears: Non-toxic Skin: Warm, Dry Head: Normacephalic Eye(s): bilateral: Normal Inspection Neck: Supple Chest: Symmetrical Cardiovascular: Rhythm Regular Respiratory: Normal Breath Sounds Gastrointestinal/Abdominal: Soft, No Tenderness Extremity: Normal ROM, Tenderness (tenderness to bilateral groin region) Neurological/Psych: Oriented x3 ED Course And Treatment - Laboratory Results Result Diagrams: 04/17/18 14:01 Lab Interpretation: Normal Urine POC: Negative O2 Sat by Pulse Oximetry: 98 (RA) Pulse Ox Interpretation: Normal - Radiology CXR: Interpreted by Me CXR Interpretation: Yes: No Acute Disease Progress Note: Case discussed with Dr. Pranay Lewis and patient to be admitted under his service. Case discussed with Dr. Siddiqui and patient to go to OR tomorrow. - Physician Consult Information Physician Contacted: Viviane Diehl Outcome Of Conversation: admit Disposition Discussed With Dr.: Viviane Diehl Doctor Will See Patient In The: Hospital - Disposition Disposition: HOSPITALIZED Disposition Time: 14:30 Condition: STABLE - POA Present On Arrival: None - Clinical Impression Clinical Impression: Abscess - PA / ENGINEERING VICE PRESIDENT / Resident Statement MD/DO has reviewed & agrees with the documentation as recorded. - Scribe Statement The provider has reviewed the documentation as recorded by the Jennifer Morales Provider Attestation: All medical record entries made by the Jennifer were at my direction and personally dictated by me. I have reviewed the chart and agree that the record accurately reflects my personal performance of the history, physical exam, medical decision making, and the department course for this patient. I have also personally directed, reviewed, and agree with the discharge instructions and disposition. Decision To Admit - Pt Status Changed To: Hospital Disposition Of: Inpatient - Admit Certification Admit to Inpatient:: After my assessment, the patient will require hospitalization for at least two midnights. This is because of the severity of symptoms shown, intensity of services needed, and/or the medical risk in this patient being treated as an outpatient. - InPatient: Physician Admission Certification: I certify that this patient requires 2 or more midnights of care for the following reason:: hydroadenitis. Abscess - . Bed Request Type: Regular Admitting Physician: Viviane Diehl Patient Diagnosis: Abscess
[2018-04-17] MEDS ORDERED: Sodium Chloride 0.9% 1,000 ML ONE (13:47)
[2018-04-17 14:07] LABS: BASO # 0.1 K/uL (0.0-0.2); EOS # 0.1 K/uL (0.0-0.7); HEMOGLOBIN 11.1 g/dL (11.0-16.0); LYMPH # 2.1 K/uL (1.0-4.3); LYMPH % 39.4 % (20.0-40.0); MEAN CELL VOLUME 90.6 fL (81.0-99.0); MEAN CORPUSCULAR HEMOGLOBIN 31.7 pg (27.0-31.0); MONO # 0.5 K/uL (0.0-0.8); NEUT # 2.6 K/uL (1.8-7.0); NEUT % 48.6 % (50.0-75.0); RBC 3.51 Mil/uL (3.80-5.20); RED CELL DISTRIBUTION WIDTH 13.5 % (11.5-14.5); WHITE BLOOD COUNT 5.3 K/uL (4.8-10.8)
[2018-04-17] MEDS: Sodium Chloride 0.9% 1,000 ML IV SCH ×2 (14:08→18:03)
[2018-04-17 14:13] LABS: SQUAMOUS EPITHIAL 1 /hpf (0-5); URINE BILIRUBIN NEGATIVE (NEGATIVE); URINE BLOOD NEGATIVE (NEGATIVE); URINE CLARITY Clear (Clear); URINE COLOR Straw (YELLOW); URINE GLUCOSE (UA) NORMAL (Normal); URINE LEUKOCYTE ESTERASE NEG Leu/uL (Negative); URINE PROTEIN NEGATIVE (NEGATIVE); URINE UROBILINOGEN NORMAL mg/dL (0.2-1.0)
[2018-04-17 14:16] LABS: HCG,QUALITATIVE URINE NEGATIVE (NEGATIVE)
[2018-04-17 14:33] LABS: ALB/GLOB RATIO 1.3 (1.0-2.1); ALBUMIN 4.3 g/dL (3.5-5.0); ALT/SGPT 27 U/L (9-52); AST/SGOT 20 U/L (14-36); BLOOD UREA NITROGEN 6 mg/dL (7-17); CALCIUM 9.3 mg/dl (8.6-10.4); GFR AFRICAN-AMERICAN > 60; GFR NON-AFRICAN AMERICAN > 60
--- NOTE | 2018-04-17 17:13 | CP.PCM.CON ---
History of Present Illness - History of Present Illness History of Present Illness: 37 y/o female presents to ED with complaints of painful right and left groin abscess. Hx of multiple admissions for same - c/o severe pain with drainage for OR this afternoon ID consulted for antibiotic management Hx of multiple allergies - Medical History PMH: Anxiety, Asthma, Gastritis, Gall Bladder Disease, Pneumonia ([id number] ) Surgical History: Cholecystectomy, Endoscopy, Tonsillectomy, ( Myomectomy) - [facility] Procedures DRAINAGE OF LEFT INGUINAL REGION, OPEN APPROACH (01/07/18) DRAINAGE OF PERINEUM SKIN, EXTERNAL APPROACH (04/19/16) DRAINAGE OF RIGHT INGUINAL REGION, OPEN APPROACH (01/07/18) EXCISION OF UTERUS, OPEN APPROACH (04/19/16) Review of Systems - Review of Systems All systems: reviewed and no additional remarkable complaints except - Constitutional Constitutional: As Per HPI - EENT Eyes: absent: As Per HPI, Blind Spots, Blurred Vision, Change in Vision, Decreased Night Vision, Diplopia, Discharge, Dry Eye, Exophthalmos, Floaters, Irritation, Itchy Eyes, Loss of Peripheral Vision, Pain, Photophobia, Requires Corrective Lenses, Sees Flashes, Spots in Vision, Tunnel Vision, Other Visual Disturbances, Loss of Vision, Other Ears: absent: As Per HPI, Decreased Hearing, Ear Discharge, Ear Pain, Tinnitus, Abnormal Hearing, Disequilibrium, Dizziness, Other Nose/Mouth/Throat: absent: As Per HPI, Epistaxis, Nasal Congestion, Nasal Discharge, Nasal Obstruction, Nasal Trauma, Nose Pain, Post Nasal Drip, Sinus Pain, Sinus Pressure, Bleeding Gums, Change in Voice, Dental Pain, Dry Mouth, Dysphagia, Halitosis, Hoarsness, Lip Swelling, Mouth Lesions, Mouth Pain, Odynophagia, Sore Throat, Throat Swelling, Tongue Swelling, Facial Pain, Neck Pain, Neck Mass, Other - Breasts Breasts: absent: As Per HPI, Change in Shape, Mass, Pain, Nipple Discharge, Nipple Inversion, Skin Changes, Swelling, Other - Cardiovascular Cardiovascular: absent: As Per HPI, Acrocyanosis, Chest Pain, Chest Pain at Rest , Chest Pain with Activity, Claudication, Diaphoresis, Dyspnea, Dyspnea on Exertion, Edema, Irregular Heart Rhythm, Pain Radiating to Arm/Neck/Jaw, Leg Edema, Leg Ulcers, Lightheadedness, Orthopnea, Palpitations, Paroxysmal Nocturnal Dyspnea, Pedal Edema, Radiating Pain, Rapid Heart Rate, Slow Heart Rate, Syncope, Other - Respiratory Respiratory: absent: As Per HPI, Cough, Dyspnea, Hemoptysis, Dyspnea on Exertion , Wheezing, Snoring, Stridor, Pain on Inspiration, Chest Congestion, Excessive Mucous Production, Change in Mucous Color, Pain with Coughing, Other - Gastrointestinal Gastrointestinal: absent: As Per HPI, Abdominal Pain, Belching, Bloating, Change in Bowel Habits, Change in Stool Character, Coffee Ground Emesis, Constipation, Cramping, Diarrhea, Dyspepsia, Dysphagia, Early Satiety, Excessive Flatus, Fecal Incontinence, Heartburn, Hematemesis, Hematochezia, Loose Stools, Melena, Nausea, Odynophagia, Temesmus, Vomiting, Other - Genitourinary Genitourinary: absent: As Per HPI, Change in Urinary Stream, Difficulty Urinating, Dysuria, Flank Pain, Hematuria, Pyuria, Nocturia, Urinary Incontinence, Urinary Frequency, Urinary Hesitance, Urinary Urgency, Voiding Freq/Small Amts, Freq UTI, Hx Renal/Bladder Calculi, Hx /Renal Surgery, Bladder Distension, Other - Reproductive: Female Reproductive:Female: absent: As Per HPI, Amenorrhea, Amenorrhea/ Control, Currently Menstual, Cycle <21 Days, Cycle >35 Days, Cycle Variable, Menses 1-7 Days, Menses >/= 8 Days, Menses Variable, Cycle > 4 Weeks Between, No Menses for 6 Months, Heavy Menses, Light Menses, Normal Menses, Spotting Between Cycles , S/P Hysterectomy, Menopausal, Post Menopausal, Premenarche, Abnormal Vaginal Bleeding, Dysmenorrhea, Dyspareunia, Genital Lesions, Genital Pruritis, Pelvic Pain, Prolapse Symptoms, Sexual Dysfunction, Vaginal Discharge, Vaginal Dryness , Vaginal Odor, Vaginal Pruritis, Other - Menstruation Menstruation: absent: As Per HPI, Amenorrhea, Amenorrhea/ Control, Currently Menstual, Cycle <21 Days, Cycle >35 Days, Cycle Variable, Menses 1-7 Days, Menses >/= 8 Days, Menses Variable, Cycle > 4 Weeks Between, No Menses for 6 Months, Heavy Menses, Light Menses, Normal Menses, Spotting Between Cycles , S/P Hysterectomy, Menopausal, Post Menopausal, Premenarche, Abnormal Vaginal Bleeding, Dysmenorrhea, Other - Musculoskeletal Musculoskeletal: absent: As Per HPI, Abnormal Gait, Arthralgias, Atrophy, Back Pain, Deformity, Joint Swelling, Limited Range of Motion, Loss of Height, Muscle Cramps, Muscle Weakness, Myalgias, Neck Pain, Numbness, Radiating Pain into Limb, Stiffness, Tingling, Other - Integumentary Integumentary: As Per HPI, Skin Pain, Wounds - Neurological Neurological: absent: As Per HPI, Abnormal Gait, Abnormal Hearing, Abnormal Movements, Abnormal Speech, Behavioral Changes, Burning Sensations, Confusion, Convulsions, Disequilibrium, Dizziness, Numbness, Focal Weakness, Frequent Falls , Headaches, Lack of Coordination, Loss of Vision, Memory Loss, Paresthesias, Radicular Pain, Restless Legs, Sensory Deficit, Syncope, Tingling, Tremor, Vertigo, Weakness, Other Visual Disturbances, Other - Psychiatric Psychiatric: absent: As Per HPI, Abnormal Sleep Pattern, Anhedonia, Anxiety, Auditory Hallucinations, Behavioral Changes, Change in Appetite, Change in Libido, Confusion, Depression, Difficulty Concentrating, Hallucinations, Homicidal Ideation, Hopelessness, Irritability, Memory Loss, Mood Swings, Panic Attacks, Paranoia, Suicidal Ideation, Visual Hallucinations, Tactile Hallucinations, Other - Endocrine Endocrine: absent: As Per HPI, Change in Body Appearance, Change in Libido, Cold Intolorance, Deepening of Voice, Excessive Sweating, Fatigue, Flushing, Heat Intolorance, Increase in Ring/Shoe/Hat Size, Palpitations, Polydipsia, Polyphagia, Polyuria, Other - Hematologic/Lymphatic Hematologic: absent: As Per HPI, Easy Bleeding, Easy Bruising, Lymphadenopathy, Other Past Patient History - Infectious Disease Hx of Infectious Diseases: None - Past Medical History & Family History Past Medical History?: Yes - Past Social History Smoking Status: Smoker Currrent Status Unknown - CARDIAC Hx Cardiac Disorders: No - PULMONARY Hx Asthma: Yes Hx Pneumonia: Yes (2016) - NEUROLOGICAL Hx Neurological Disorder: No - HEENT Hx HEENT Problems: No - RENAL Hx Chronic Kidney Disease: No - ENDOCRINE/METABOLIC Hx Endocrine Disorders: No - HEMATOLOGICAL/ONCOLOGICAL Hx Blood Disorders: No - INTEGUMENTARY Hx Dermatological Problems: Yes Other/Comment: HX: MASS RIGHT GROIN - MUSCULOSKELETAL/RHEUMATOLOGICAL Hx Falls: No - GASTROINTESTINAL Hx Gall Bladder Disease: Yes Hx Gastritis: Yes - GENITOURINARY/GYNECOLOGICAL Hx Genitourinary Disorders: Yes Hx Reproductive Disorders: Yes Other/Comment: HX: FIBROID UTERUS - PSYCHIATRIC Hx Substance Use: No - SURGICAL HISTORY Hx Cholecystectomy: Yes Hx Tonsillectomy: Yes Other/Comment: myomectomy. - ANESTHESIA Hx Anesthesia: Yes Hx Anesthesia Reactions: No Hx Malignant Hyperthermia: No Meds Allergies/Adverse Reactions: Allergies Allergy/AdvReac Type Severity Reaction Status Date / Time adhesive tape Allergy Severe RASH Verified 04/17/18 12:21 ciprofloxacin [From Cipro] Allergy Intermediate RASH Verified 04/17/18 12:21 ciprofloxacin HCl Allergy Intermediate RASH Verified 04/17/18 12:21 [From Cipro] hydromorphone HCl Allergy Intermediate RASH Verified 04/17/18 12:21 [From Dilaudid] Penicillins Allergy Intermediate RASH Verified 04/17/18 12:21 shrimp Allergy Intermediate RASH Verified 04/17/18 12:21 sulfamethoxazole Allergy Intermediate RASH Verified 04/17/18 12:21 [From Bactrim] trimethoprim [From Bactrim] Allergy Intermediate RASH Verified 04/17/18 12:21 doxycycline AdvReac RASH, Verified 04/17/18 12:21 ITCHINESS, THROAT SWELLING - Medications Medications: Current Medications Albuterol/Ipratropium (Duoneb 3 Mg/0.5 Mg (3 Ml) Ud) 3 ml INH RQ4 PRN PRN Reason: Shortness of Breath Sodium Chloride (Sodium Chloride 0.9%) 1,000 mls @ 100 mls/hr IV .Q10H ROGERIO Last Admin: 04/17/18 14:08 Dose: 100 mls/hr Pneumococcal Polyvalent Vaccine (Pneumovax 23 Vaccine) 0.5 ml IM .ONCE ONE Stop: 04/19/18 10:01 Physical Exam - Constitutional Appears: No Acute Distress, Chronically Ill - Head Exam Head Exam: ATRAUMATIC, NORMOCEPHALIC - Eye Exam Eye Exam: PERRL. absent: Scleral icterus - ENT Exam ENT Exam: Mucous Membranes Dry - Neck Exam Neck exam: Negative for: Lymphadenopathy - Respiratory Exam Respiratory Exam: Decreased Breath Sounds, Clear to Auscultation Bilateral - Cardiovascular Exam Cardiovascular Exam: REGULAR RHYTHM, +S1, +S2 - GI/Abdominal Exam GI & Abdominal Exam: Diminished Bowel Sounds, Soft. absent: Tenderness - Rectal Exam Rectal Exam: Deferred - Exam Exam: NORMAL INSPECTION - Extremities Exam Extremities exam: Positive for: pedal pulses present. Negative for: calf tenderness, pedal edema, tenderness - Back Exam Back exam: absent: CVA tenderness (L), CVA tenderness (R) - Neurological Exam Neurological exam: Alert, CN II-XII Intact, Oriented x3, Reflexes Normal - Psychiatric Exam Psychiatric exam: Normal Mood - Skin Skin Exam: Dry Additional comments: bilat inguinal lesions in / around hair follicles no monica pus + tenderness Results - Vital Signs Recent Vital Signs: Last Vital Signs Temp 99.0 F 04/17/18 14:43 Pulse 60 04/17/18 14:43 Resp 19 04/17/18 14:43 BP 116/77 04/17/18 14:43 Pulse Ox 100 04/17/18 14:43 - Labs Result Diagrams: 04/17/18 14:01 04/17/18 14:01 Labs: Laboratory Results - last 24 hr 04/17/18 04/17/18 04/17/18 14:01 14:01 14:01 WBC 5.3 RBC 3.51 L Hgb 11.1 Hct 31.8 L MCV 90.6 MCH 31.7 H MCHC 35.0 RDW 13.5 Plt Count 300 MPV 8.0 Neut % (Auto) 48.6 L Lymph % (Auto) 39.4 Moca % (Auto) 9.0 Eos % (Auto) 2.0 Baso % (Auto) 1.0 Neut # (Auto) 2.6 Lymph # (Auto) 2.1 Moca # (Auto) 0.5 Eos # (Auto) 0.1 Baso # (Auto) 0.1 Sodium 142 Potassium 3.8 Chloride 105 Carbon Dioxide 24 Anion Gap 17 BUN 6 L Creatinine 0.8 Est GFR ( Amer) > 60 Est GFR (Non-Af Amer) > 60 Random Glucose 88 Calcium 9.3 Total Bilirubin 0.5 AST 20 ALT 27 Alkaline Phosphatase 73 Total Protein 7.6 Albumin 4.3 Globulin 3.3 Albumin/Globulin Ratio 1.3 Urine Color Straw Urine Clarity Clear Urine pH 6.0 Ur Specific [place] 1.002 L Urine Protein Negative Urine Glucose (UA) Normal Urine Ketones Negative Urine Blood Negative Urine Nitrate Negative Urine Bilirubin Negative Urine Urobilinogen Normal Ur Leukocyte Esterase Neg Urine WBC (Auto) 1 Urine RBC (Auto) 1 Ur Squamous Epith Cells 1 Urine HCG, Qual Negative Assessment & Plan (1) Abscess of groin, left Status: Acute (2) Abscess Status: Acute (3) Abscess of groin, right Status: Acute - Assessment and Plan (Free Text) Assessment: for I and D IV then po antibiotics consider zyvox on discharge
[2018-04-17] MEDS: Linezolid 600 mg in D5W 300 ml 600 MG/300 ML BAG IVPB SCH (18:30)
[2018-04-17] MEDS: Albuterol-Ipratrop 3 mg / 0.5 (3 ml) UD INH PRN (19:31)
[2018-04-17] MEDS: Oxycodone/Acetaminophen 5/325 mg Tab PO PRN (21:06)
[2018-04-17] MEDS ORDERED: Oxycodone/Acetaminophen 5/325 mg Tab PO STA (23:42)
[2018-04-18] MEDS: Sodium Chloride 0.9% 1,000 ML IV SCH ×5 (05:51→21:54)
[2018-04-18] MEDS: Linezolid 600 mg in D5W 300 ml 600 MG/300 ML BAG IVPB SCH ×2 (05:51→17:32)
[2018-04-18] MEDS: Oxycodone/Acetaminophen 5/325 mg Tab PO PRN ×4 (06:00→21:40)
[2018-04-18] MEDS: Albuterol-Ipratrop 3 mg / 0.5 (3 ml) UD INH PRN ×2 (07:17→11:21)
--- NOTE | 2018-04-18 07:19 | CP.PCM.PN ---
Subjective - Date & Time of Evaluation Date of Evaluation: 04/18/18 Time of Evaluation: 07:16 - Subjective Subjective: PGY-[address] Diehl's service Pt seen and examined at bedside. Nursing reports no acute events overnight. Patient reports continued tenderness in her inguinal region. She denies fever, chills, abd pain, N/V. Objective - Vital Signs/Intake and Output Vital Signs (last 24 hours): Temp Pulse Resp BP Pulse Ox 97.7 F 69 20 116/64 99 04/17/18 23:16 04/17/18 23:16 04/17/18 23:16 04/17/18 23:16 04/17/18 23:16 Intake and Output: 04/18/18 04/18/18 06:59 18:59 Intake Total 1930 Balance 1930 - Medications Medications: Current Medications Albuterol/Ipratropium (Duoneb 3 Mg/0.5 Mg (3 Ml) Ud) 3 ml INH RQ4 PRN PRN Reason: Shortness of Breath Last Admin: 04/17/18 19:31 Dose: 3 ml Sodium Chloride (Sodium Chloride 0.9%) 1,000 mls @ 100 mls/hr IV .Q10H ORGERIO Last Admin: 04/18/18 05:51 Dose: 100 mls/hr Linezolid (Zyvox 600mg/300ml D5w) 600 mg in 300 mls @ 200 mls/hr IVPB Q12H ROGERIO PRN Reason: Protocol Last Admin: 04/18/18 05:51 Dose: 200 mls/hr Oxycodone/Acetaminophen (Percocet 5/325 Mg Tab) 1 tab PO Q4H PRN PRN Reason: Pain, moderate (4-7) Stop: 04/20/18 20:58 Last Admin: 04/18/18 06:00 Dose: 1 tab Pneumococcal Polyvalent Vaccine (Pneumovax 23 Vaccine) 0.5 ml IM .ONCE ONE Stop: 04/19/18 10:01 - Labs Labs: 04/17/18 14:01 04/17/18 14:01 - Additional Findings Additional findings: - Constitutional Appears: No Acute Distress, Chronically Ill - Head Exam Head Exam: ATRAUMATIC, NORMOCEPHALIC - Eye Exam Eye Exam: PERRL. absent: Scleral icterus - ENT Exam ENT Exam: Mucous Membranes Dry - Neck Exam Neck exam: Negative for: Lymphadenopathy - Respiratory Exam Respiratory Exam: Decreased Breath Sounds, Clear to Auscultation Bilateral - Cardiovascular Exam Cardiovascular Exam: REGULAR RHYTHM, +S1, +S2 - GI/Abdominal Exam GI & Abdominal Exam: Diminished Bowel Sounds, TTP at bilateral groin (site of I& D). absent: Tenderness - Dressings c/d/i - Exam Exam: NORMAL INSPECTION - Extremities Exam Extremities exam: Positive for: pedal pulses present. Negative for: calf tenderness, pedal edema, tenderness - Back Exam Back exam: absent: CVA tenderness (L), CVA tenderness (R) - Neurological Exam Neurological exam: Alert, CN II-XII Intact, Oriented x3, Reflexes Normal - Psychiatric Exam Psychiatric exam: Normal Mood - Skin Skin Exam: Dry, Normal color except as mentioned above Additional comments: Assessment and Plan - Assessment and Plan (Free Text) Plan: Bilateral groin abscesses Observe on med/surg Afebrile, WBC WNL CXR (04/17/18): NAD (wetread, f/u official report) Dr. Gastelum, ID pre sales technical consultant - Linezolid 600mg IV Q12H (Start 04/17/18, Day 2) - Can switch to PO at discharge Dr. Siddiqui, Gen Surg pre sales technical consultant s/p I&D 04/17/18, repeat OR on 04/18 NS @ 100 cc/hr Percocet 5/325mg 1 tab Q4H PRN pain -Toradol 30mg IV once Benadryl 25mg PO Q6H PRN for pruritus Pain management per Dr. Siddiqui Asthma Duonebs Q4H PRN SOB Seasonal allergies Will restart home Claritin 10mg PO Daily Prophylaxis VTE anticoagulant per surgery SCDs GI not indicated Franklyn Aguayo PGY-2 Medical managment per Fazal
[2018-04-18] MEDS ORDERED: Midazolam 2 MG/2 ML VIAL ONE (13:05)
[2018-04-18] MEDS ORDERED: Propofol 10 mg/ml Inj (20 ML) ONE (13:05)
[2018-04-18] MEDS ORDERED: HYDROmorphone 0.5 mg/0.5 ml ISec IVP PRN (14:01)
[2018-04-18] MEDS ORDERED: HYDROmorphone 0.5 mg/0.5 ml ISec ONE (14:11)
[2018-04-18] MEDS ORDERED: Pantoprazole 40 mg EC Tab PO STA (17:50)
--- NOTE | 2018-04-18 18:28 | CP.PCM.PN ---
Subjective - Date & Time of Evaluation Date of Evaluation: 04/18/18 Time of Evaluation: 08:00 - Subjective Subjective: recurrent groin abscesses s/p I and D grew staph epi multiple times multiple allergies afeb on zyvox cont iv then po zyvox Objective - Vital Signs/Intake and Output Vital Signs (last 24 hours): Temp Pulse Resp BP Pulse Ox 97.4 F L 79 20 146/92 H 95 04/18/18 15:14 04/18/18 15:14 04/18/18 15:14 04/18/18 15:14 04/18/18 15:14 Intake and Output: 04/18/18 04/18/18 06:59 18:59 Intake Total 1930 900 Output Total 200 Balance 1930 700 - Medications Medications: Current Medications Albuterol/Ipratropium (Duoneb 3 Mg/0.5 Mg (3 Ml) Ud) 3 ml INH RQ4 PRN PRN Reason: Shortness of Breath Last Admin: 04/18/18 11:21 Dose: 3 ml Dicyclomine HCl (Bentyl) 20 mg PO TID ROGERIO Diphenhydramine HCl (Benadryl) 25 mg PO Q6 PRN PRN Reason: Itching / Pruritus Sodium Chloride (Sodium Chloride 0.9%) 1,000 mls @ 100 mls/hr IV .Q10H ROGERIO Last Admin: 04/18/18 10:00 Dose: Not Given Linezolid (Zyvox 600mg/300ml D5w) 600 mg in 300 mls @ 200 mls/hr IVPB Q12H ROGERIO PRN Reason: Protocol Last Admin: 04/18/18 17:32 Dose: 200 mls/hr Lactated Ringer's (Lactated Ringer's) 1,000 mls @ 150 mls/hr IV .Q6H40M [facility] Loratadine (Claritin) 10 mg PO DAILY ROGERIO Oxycodone/Acetaminophen (Percocet 5/325 Mg Tab) 1 tab PO Q4H PRN PRN Reason: Pain, moderate (4-7) Stop: 04/20/18 20:58 Last Admin: 04/18/18 16:04 Dose: 1 tab Pantoprazole Sodium (Protonix Ec Tab) 40 mg PO DAILY [facility] Pneumococcal Polyvalent Vaccine (Pneumovax 23 Vaccine) 0.5 ml IM .ONCE ONE Stop: 04/19/18 10:01 - Labs Labs: 04/17/18 14:01 04/17/18 14:01 - Constitutional Appears: Non-toxic, Chronically Ill - Head Exam Head Exam: NORMOCEPHALIC - Eye Exam Eye Exam: PERRL - ENT Exam ENT Exam: Mucous Membranes Dry - Neck Exam Neck Exam: absent: Lymphadenopathy - Respiratory Exam Respiratory Exam: Decreased Breath Sounds - Cardiovascular Exam Cardiovascular Exam: REGULAR RHYTHM - GI/Abdominal Exam GI & Abdominal Exam: Distended, Soft Assessment and Plan (1) Abscess of groin, left Status: Acute (2) Abscess Status: Acute (3) Abscess of groin, right Status: Acute - Assessment and Plan (Free Text) Assessment: recurrent groin abscesses s/p I and D grew staph epi multiple times afeb on zyvox cont iv then po zyvox
--- NOTE | 2018-04-19 01:14 | OP ---
PROCEDURE DATE: 04/18/2018 PREOPERATIVE DIAGNOSES: Multiple infected pelvic masses with abscess, bilateral. OPERATIVE DIAGNOSES: Multiple infected pelvic masses with abscess, bilateral. PROCEDURE PERFORMED: Wide and deep excision of multiple infected pelvic masses with abscesses, bilateral. SURGEON: Nitish Siddiqui MD ANESTHESIA: General. BLOOD LOSS: 50 mL. POSTOPERATIVE CONDITION: Stable. INDICATIONS FOR SURGERY: This is a 37-year-old female with recurrent hospital admissions due to chronic infection in her groin and pelvic region. First, it appeared to be secondary to hidradenitis but now it appears to be a much more aggressive condition. She presents with multiple abscesses and infected masses bilaterally in her groin, now taken to the operating room for definitive treatment. GROSS FINDINGS: As noted above, there were multiple infected abscesses and masses ranging in size from 6-1 cm, all were excised via wide and deep excision. Only partial tissue transfer closures were performed, and central portion of each wound was left open for granulation and healing. PROCEDURE: The patient was taken to the operating room, general anesthesia was administered. The bilateral groins and thighs and abdomen were prepped and draped. An elliptical incision was made surrounding each mass and was completely excised into the pelvic layer and pus was drained and cultured. This included the retroperitoneal pelvic layer. After all of the masses had been excised and all the abscesses drained including the retroperitoneal abscess, partial tissue transfer closures were performed by mobilizing full thickness and closing the wounds partially with Monocryl. Central portion of each wound was packed open with saline gauze. The patient tolerated the procedure well and returned to the recovery room in stable condition. Nitish Siddiqui MD
[2018-04-19] MEDS: Oxycodone/Acetaminophen 5/325 mg Tab PO PRN ×2 (04:28→17:30)
[2018-04-19] MEDS: Linezolid 600 mg in D5W 300 ml 600 MG/300 ML BAG IVPB SCH ×2 (05:28→17:31)
[2018-04-19] MEDS: Sodium Chloride 0.9% 1,000 ML IV SCH (05:33)
--- NOTE | 2018-04-19 07:05 | CP.PCM.PN ---
Subjective - Date & Time of Evaluation Date of Evaluation: 04/19/18 Time of Evaluation: 07:01 - Subjective Subjective: PGY-[address] Diehl's service Pt seen and examined at bedside. Nursing reports pt hemoglobin decreased on AM labs. Patient reports history of anemia for which she has taken Feosol in the past. FDLMP: 04/06/18. Denies heavier periods lately. Denies fever, chills, chest pain, SOB, palpitations, or dizziness. Objective - Vital Signs/Intake and Output Vital Signs (last 24 hours): Temp Pulse Resp BP Pulse Ox 98.5 F 63 20 109/70 99 04/18/18 23:20 04/18/18 23:20 04/18/18 23:20 04/18/18 23:20 04/18/18 23:20 Intake and Output: 04/19/18 04/19/18 06:59 18:59 Intake Total 1630 Output Total 800 Balance 830 - Medications Medications: Current Medications Albuterol/Ipratropium (Duoneb 3 Mg/0.5 Mg (3 Ml) Ud) 3 ml INH RQ4 PRN PRN Reason: Shortness of Breath Last Admin: 04/18/18 11:21 Dose: 3 ml Dicyclomine HCl (Bentyl) 20 mg PO TID ROGERIO Last Admin: 04/18/18 19:24 Dose: 20 mg Diphenhydramine HCl (Benadryl) 25 mg PO Q6 PRN PRN Reason: Itching / Pruritus Last Admin: 04/19/18 05:28 Dose: 25 mg Sodium Chloride (Sodium Chloride 0.9%) 1,000 mls @ 100 mls/hr IV .Q10H ROGERIO Last Admin: 04/19/18 05:33 Dose: Not Given Linezolid (Zyvox 600mg/300ml D5w) 600 mg in 300 mls @ 200 mls/hr IVPB Q12H ROGERIO PRN Reason: Protocol Last Admin: 04/19/18 05:28 Dose: 200 mls/hr Lactated Ringer's (Lactated Ringer's) 1,000 mls @ 150 mls/hr IV .Q6H40M ROGERIO Loratadine (Claritin) 10 mg PO DAILY ROGERIO Oxycodone/Acetaminophen (Percocet 5/325 Mg Tab) 1 tab PO Q4H PRN PRN Reason: Pain, moderate (4-7) Stop: 04/20/18 20:58 Last Admin: 04/19/18 04:28 Dose: 1 tab Pantoprazole Sodium (Protonix Ec Tab) 40 mg PO DAILY ROGERIO Pneumococcal Polyvalent Vaccine (Pneumovax 23 Vaccine) 0.5 ml IM .ONCE ONE Stop: 04/19/18 10:01 - Labs Labs: 04/17/18 14:01 04/17/18 14:01 - Additional Findings Additional findings: - Constitutional Appears: No Acute Distress, Chronically Ill - Head Exam Head Exam: ATRAUMATIC, NORMOCEPHALIC - Eye Exam Eye Exam: PERRL. absent: Scleral icterus - ENT Exam ENT Exam: Mucous Membranes Dry - Neck Exam Neck exam: Negative for: Lymphadenopathy - Respiratory Exam Respiratory Exam: Decreased Breath Sounds, Clear to Auscultation Bilateral - Cardiovascular Exam Cardiovascular Exam: REGULAR RHYTHM, +S1, +S2 - GI/Abdominal Exam GI & Abdominal Exam: TTP at bilateral groin (site of I&D). absent: Tenderness - Dressings with some blood soaking through bilaterally - Exam Exam: NORMAL INSPECTION - Extremities Exam Extremities exam: Positive for: pedal pulses present. Negative for: calf tenderness, pedal edema, tenderness - Back Exam Back exam: absent: CVA tenderness (L), CVA tenderness (R) - Neurological Exam Neurological exam: Alert, CN II-XII Intact, Oriented x3, Reflexes Normal - Psychiatric Exam Psychiatric exam: Normal Mood - Skin Skin Exam: Dry, Normal color except as mentioned above Assessment and Plan - Assessment and Plan (Free Text) Plan: Bilateral groin abscesses Observe on med/surg Afebrile, WBC WNL CXR (04/17/18): NAD Dr. Gastelum, ID senior staff consultant - Linezolid 600mg IV Q12H (Start 04/17/18, Day 3) - Can switch to PO at discharge Dr. Siddiqui, Gen Surg senior staff consultant s/p 04/18/18 - for repeat cleaning 04/19/18 LR @ 150 cc/hr Percocet 5/325mg 1 tab Q4H PRN pain -Toradol 30mg IV once in ED Benadryl 25mg PO Q6H PRN for pruritus Pain management per Dr. Siddiqui f/u wound culture (04/18/18) Asthma Duonebs Q4H PRN SOB Anxiety Restart home Xanax 1 mg PO BID Seasonal allergies Restart home Claritin 10mg PO Daily Constipation Bentyl 20mg PO TID Prophylaxis VTE anticoagulant per surgery SCDs GI not indicated Franklyn Aguayo PGY-2 All management per Fazal
[2018-04-19 07:46] LABS: BASO % 0.5 % (0.0-2.0); EOS # 0.1 K/uL (0.0-0.7); EOS % 2.1 % (0.0-4.0); LYMPH # 1.7 K/uL (1.0-4.3); LYMPH % 33.7 % (20.0-40.0); MEAN CELL VOLUME 91.4 fL (81.0-99.0); MEAN CORPUSCULAR HEMOGLOBIN 31.2 pg (27.0-31.0); MEAN CORPUSCULAR HGB CONC 34.2 g/dL (33.0-37.0); MEAN PLATELET VOLUME 8.5 fL (7.2-11.7); MONO # 0.4 K/uL (0.0-0.8); MONO % 8.4 % (0.0-10.0); NEUT # 2.8 K/uL (1.8-7.0); NEUT % 55.3 % (50.0-75.0); RBC 2.89 Mil/uL (3.80-5.20); RED CELL DISTRIBUTION WIDTH 13.7 % (11.5-14.5)
--- NOTE | 2018-04-19 08:15 | HP ---
CHIEF COMPLAINT: The patient came to the hospital with chief complaint of bilateral groin abscesses. The patient had multiple admissions from similar conditions, IV antibiotic and multiple drainage, pain become severe, more . SOCIAL HISTORY: The patient is nonsmoker, nondrinker. PHYSICAL EXAMINATION: GENERAL: The patient is awake, alert, oriented. VITAL SIGNS: Temperature 98, pulse 90. HEENT: Within normal limits. NECK: Supple. CHEST: Symmetrical. HEART: Regular. ABDOMEN: Soft. EXTREMITIES: No edema. ASSESSMENT AND PLAN: The patient suffers from bilateral groin abscesses. The patient to get IV antibiotics, rest and comfort. Viviane Diehl MD
[2018-04-19 08:55] LABS: ALB/GLOB RATIO 1.1 (1.0-2.1); ALBUMIN 2.8 g/dL (3.5-5.0); ALT/SGPT 22 U/L (9-52); AST/SGOT 13 U/L (14-36); BLOOD UREA NITROGEN 8 mg/dL (7-17); GFR AFRICAN-AMERICAN > 60; GFR NON-AFRICAN AMERICAN > 60
--- NOTE | 2018-04-19 09:44 | RAD ---
Date of service: 04/17/2018 HISTORY: SOB COMPARISON: 08/22/2017 TECHNIQUE: Chest PA and lateral FINDINGS: LUNGS: No active pulmonary disease. PLEURA: No significant pleural effusion identified. No pneumothorax apparent. CARDIOVASCULAR: Normal. OSSEOUS STRUCTURES: No significant abnormalities. VISUALIZED UPPER ABDOMEN: Normal. OTHER FINDINGS: None. IMPRESSION: No active disease.
[2018-04-19] MEDS: Pantoprazole 40 mg EC Tab PO SCH (09:55)
[2018-04-19] MEDS: Lactated Ringer's 1,000 ML IV SCH ×3 (09:55→23:35)
[2018-04-19] MEDS ORDERED: Pneumococcal 23-Valent Vaccine IM ONE (10:00)
[2018-04-19] MEDS ORDERED: Midazolam 2 MG/2 ML VIAL ONE (14:04)
[2018-04-19] MEDS ORDERED: Propofol 10 mg/ml Inj (20 ML) ONE (14:04)
--- NOTE | 2018-04-19 17:19 | CP.PCM.PN ---
Subjective - Date & Time of Evaluation Date of Evaluation: 04/19/18 Time of Evaluation: 09:00 - Subjective Subjective: wound from groin growing gram neg elyse unclear if this represents a contaminant await sensitivity ? IV azactam Objective - Vital Signs/Intake and Output Vital Signs (last 24 hours): Temp Pulse Resp BP Pulse Ox 97.9 F 82 20 115/63 98 04/19/18 16:30 04/19/18 16:30 04/19/18 16:30 04/19/18 16:30 04/19/18 16:30 Intake and Output: 04/19/18 04/19/18 06:59 18:59 Intake Total 1630 1700 Output Total 800 950 Balance 830 750 - Medications Medications: Current Medications Albuterol/Ipratropium (Duoneb 3 Mg/0.5 Mg (3 Ml) Ud) 3 ml INH RQ4 PRN PRN Reason: Shortness of Breath Last Admin: 04/18/18 11:21 Dose: 3 ml Alprazolam (Xanax) 1 mg PO BID PRN PRN Reason: Anxiety Dicyclomine HCl (Bentyl) 20 mg PO TID [facility] Last Admin: 04/19/18 13:52 Dose: Not Given Diphenhydramine HCl (Benadryl) 25 mg PO Q6 PRN PRN Reason: Itching / Pruritus Last Admin: 04/19/18 05:28 Dose: 25 mg Linezolid (Zyvox 600mg/300ml D5w) 600 mg in 300 mls @ 200 mls/hr IVPB Q12H [facility] PRN Reason: Protocol Last Admin: 04/19/18 05:28 Dose: 200 mls/hr Lactated Ringer's (Lactated Ringer's) 1,000 mls @ 150 mls/hr IV .Q6H40M [facility] Last Admin: 04/19/18 09:55 Dose: 150 mls/hr Loratadine (Claritin) 10 mg PO DAILY [facility] Last Admin: 04/19/18 09:55 Dose: 10 mg Oxycodone/Acetaminophen (Percocet 5/325 Mg Tab) 1 tab PO Q4H PRN PRN Reason: Pain, moderate (4-7) Stop: 04/20/18 20:58 Last Admin: 04/19/18 04:28 Dose: 1 tab Pantoprazole Sodium (Protonix Ec Tab) 40 mg PO DAILY [facility] Last Admin: 04/19/18 09:55 Dose: 40 mg - Labs Labs: 04/19/18 07:36 04/19/18 07:36 Assessment and Plan (1) Abscess of groin, left Status: Acute (2) Abscess Status: Acute (3) Abscess of groin, right Status: Acute
[2018-04-20] MEDS: Oxycodone/Acetaminophen 5/325 mg Tab PO PRN ×3 (00:01→10:32)
[2018-04-20] MEDS: Linezolid 600 mg in D5W 300 ml 600 MG/300 ML BAG IVPB SCH ×2 (05:08→17:23)
[2018-04-20] MEDS: Lactated Ringer's 1,000 ML IV SCH ×2 (06:50→18:53)
[2018-04-20] MEDS: Albuterol-Ipratrop 3 mg / 0.5 (3 ml) UD INH PRN (07:32)
[2018-04-20 07:46] LABS: BASO % 0.5 % (0.0-2.0); EOS # 0.1 K/uL (0.0-0.7); EOS % 2.9 % (0.0-4.0); HEMOGLOBIN 9.1 g/dL (11.0-16.0); LYMPH # 1.7 K/uL (1.0-4.3); LYMPH % 35.2 % (20.0-40.0); MEAN CORPUSCULAR HEMOGLOBIN 31.3 pg (27.0-31.0); MEAN CORPUSCULAR HGB CONC 34.4 g/dL (33.0-37.0); MEAN PLATELET VOLUME 8.3 fL (7.2-11.7); MONO # 0.4 K/uL (0.0-0.8); MONO % 8.8 % (0.0-10.0); NEUT # 2.5 K/uL (1.8-7.0); NEUT % 52.6 % (50.0-75.0); NRBC % 0.1 % (0.0-2.0); RBC 2.92 Mil/uL (3.80-5.20); RED CELL DISTRIBUTION WIDTH 13.6 % (11.5-14.5); WHITE BLOOD COUNT 4.7 K/uL (4.8-10.8)
[2018-04-20 08:05] LABS: ALBUMIN 2.9 g/dL (3.5-5.0); ALT/SGPT 18 U/L (9-52); AST/SGOT 12 U/L (14-36); BLOOD UREA NITROGEN 6 mg/dL (7-17); CALCIUM 8.3 mg/dl (8.6-10.4); GFR AFRICAN-AMERICAN > 60; GFR NON-AFRICAN AMERICAN > 60
[2018-04-20] MEDS: Pantoprazole 40 mg EC Tab PO SCH (10:03)
[2018-04-21] MEDS: Lactated Ringer's 1,000 ML IV SCH ×4 (02:28→21:20)
[2018-04-21] MEDS: Oxycodone/Acetaminophen 5/325 mg Tab PO PRN ×5 (02:29→20:24)
[2018-04-21] MEDS: Linezolid 600 mg in D5W 300 ml 600 MG/300 ML BAG IVPB SCH ×2 (06:03→18:17)
[2018-04-21] MEDS: Pantoprazole 40 mg EC Tab PO SCH (09:11)
[2018-04-21] MEDS: Albuterol-Ipratrop 3 mg / 0.5 (3 ml) UD INH PRN ×2 (10:49→15:04)
[2018-04-21] MEDS ORDERED: POLYETHYLENE GLYCOL 3350 17 GM/Dose PACKET PO SCH (12:00)
[2018-04-21] MEDS: POLYETHYLENE GLYCOL 3350 17 GM/Dose PACKET PO SCH (12:42)
--- NOTE | 2018-04-21 15:57 | CP.PCM.PN ---
Subjective - Date & Time of Evaluation Date of Evaluation: 04/21/18 Time of Evaluation: 08:00 - Subjective Subjective: wound from groin growing gram neg elyse sens to all ? IV azactam Objective - Vital Signs/Intake and Output Vital Signs (last 24 hours): Temp Pulse Resp BP Pulse Ox 97.7 F 95 H 20 136/79 100 04/21/18 15:00 04/21/18 15:00 04/21/18 15:00 04/21/18 15:00 04/21/18 15:00 Intake and Output: 04/21/18 04/21/18 06:59 18:59 Intake Total 3120 1300 Output Total 1950 750 Balance 1170 550 - Medications Medications: Current Medications Albuterol/Ipratropium (Duoneb 3 Mg/0.5 Mg (3 Ml) Ud) 3 ml INH RQ4 PRN PRN Reason: Shortness of Breath Last Admin: 04/21/18 15:04 Dose: 3 ml Alprazolam (Xanax) 1 mg PO BID PRN PRN Reason: Anxiety Last Admin: 04/21/18 08:45 Dose: 1 mg Dicyclomine HCl (Bentyl) 20 mg PO TID [facility] Last Admin: 04/21/18 14:43 Dose: 20 mg Diphenhydramine HCl (Benadryl) 25 mg PO Q6 PRN PRN Reason: Itching / Pruritus FIRST LINE Last Admin: 04/21/18 06:34 Dose: 25 mg Fluconazole (Diflucan) 150 mg PO DAILY [facility] PRN Reason: Protocol Stop: 04/22/18 10:01 Last Admin: 04/21/18 12:43 Dose: 150 mg Hydroxyzine HCl (Atarax) 25 mg PO BID PRN PRN Reason: Itching / Pruritus SECOND LINE Last Admin: 04/20/18 17:23 Dose: 25 mg Linezolid (Zyvox 600mg/300ml D5w) 600 mg in 300 mls @ 200 mls/hr IVPB Q12H [facility] PRN Reason: Protocol Last Admin: 04/21/18 06:03 Dose: 200 mls/hr Loratadine (Claritin) 10 mg PO DAILY [facility] Last Admin: 04/21/18 09:11 Dose: 10 mg Oxycodone/Acetaminophen (Percocet 5/325 Mg Tab) 2 tab PO Q4H PRN PRN Reason: Pain, severe (8-10) Stop: 04/23/18 10:23 Last Admin: 04/21/18 10:30 Dose: 2 tab Pantoprazole Sodium (Protonix Ec Tab) 40 mg PO DAILY [facility] Last Admin: 04/21/18 09:11 Dose: 40 mg Polyethylene Glycol (Miralax) 17 gm PO DAILY [facility] Last Admin: 04/21/18 12:42 Dose: 17 gm - Labs Labs: 04/20/18 07:37 04/20/18 07:37 - Constitutional Appears: Non-toxic, Chronically Ill - Head Exam Head Exam: NORMOCEPHALIC - Eye Exam Eye Exam: PERRL - ENT Exam ENT Exam: Mucous Membranes Dry - Neck Exam Neck Exam: absent: Lymphadenopathy - Respiratory Exam Respiratory Exam: Decreased Breath Sounds - Cardiovascular Exam Cardiovascular Exam: REGULAR RHYTHM - GI/Abdominal Exam GI & Abdominal Exam: Distended - Rectal Exam Rectal Exam: Deferred - Exam Exam: NORMAL INSPECTION - Extremities Exam Extremities Exam: absent: Pedal Edema - Back Exam Back Exam: absent: CVA tenderness (L), CVA tenderness (R) Assessment and Plan (1) Abscess of groin, left Status: Acute (2) Abscess Status: Acute (3) Abscess of groin, right Status: Acute
[2018-04-21] MEDS: Aztreonam 1 GM in Sodium Chloride 0.9% 100 ML IVPB SCH (16:32)
[2018-04-22] MEDS: Oxycodone/Acetaminophen 5/325 mg Tab PO PRN ×4 (00:24→23:09)
[2018-04-22] MEDS: Aztreonam 1 GM in Sodium Chloride 0.9% 100 ML IVPB SCH ×4 (00:27→23:43)
[2018-04-22] MEDS: Linezolid 600 mg in D5W 300 ml 600 MG/300 ML BAG IVPB SCH ×2 (05:48→18:16)
[2018-04-22] MEDS: Pantoprazole 40 mg EC Tab PO SCH (09:47)
[2018-04-22] MEDS: POLYETHYLENE GLYCOL 3350 17 GM/Dose PACKET PO SCH (09:55)
--- NOTE | 2018-04-22 10:17 | CP.PCM.PN ---
Subjective - Date & Time of Evaluation Date of Evaluation: 04/22/18 Time of Evaluation: 10:17 - Subjective Subjective: PGY2- Medicine progress note for Dr. Diehl Patient was seen and examined at bedside in no acute distress. Patient reports having pain in her right and left groin, described as a pinching pain. She says the pain is slightly improving. She also says that she has been placing additional gauze in her dressing as she has noticed serous drainage bilaterally. Patient admits to having an episode of vomiting this morning that she believes is due to her anxiety. She says she was extremely anxious yesterday and last night, but as of this morning, feels better. Her home anti- anxiety medication was restarted yesterday. She reports having a normal BM this morning and denies blood in stool. Patient denies chest pain, palpitations, dyspnea, abdominal pain, nausea, diarrhea, constipation, and fevers. Objective - Vital Signs/Intake and Output Vital Signs (last 24 hours): Temp Pulse Resp BP Pulse Ox 98.6 F 69 20 128/83 100 04/22/18 07:00 04/22/18 07:00 04/22/18 07:00 04/22/18 07:00 04/22/18 07:00 Intake and Output: 04/22/18 04/22/18 06:59 18:59 Intake Total 1500 1250 Output Total 1200 1100 Balance 300 150 - Medications Medications: Current Medications Albuterol/Ipratropium (Duoneb 3 Mg/0.5 Mg (3 Ml) Ud) 3 ml INH RQ4 PRN PRN Reason: Shortness of Breath Last Admin: 04/21/18 15:04 Dose: 3 ml Alprazolam (Xanax) 1 mg PO BID PRN PRN Reason: Anxiety Last Admin: 04/22/18 05:56 Dose: 1 mg Dicyclomine HCl (Bentyl) 20 mg PO TID [facility] Last Admin: 04/22/18 09:51 Dose: 20 mg Diphenhydramine HCl (Benadryl) 25 mg PO Q6 PRN PRN Reason: Itching / Pruritus FIRST LINE Last Admin: 04/21/18 20:31 Dose: 25 mg Hydroxyzine HCl (Atarax) 25 mg PO BID PRN PRN Reason: Itching / Pruritus SECOND LINE Last Admin: 04/20/18 17:23 Dose: 25 mg Linezolid (Zyvox 600mg/300ml D5w) 600 mg in 300 mls @ 200 mls/hr IVPB Q12H [facility] PRN Reason: Protocol Last Admin: 04/22/18 05:48 Dose: 200 mls/hr Aztreonam 1 gm/ Sodium (Chloride) 100 mls @ 200 mls/hr IVPB Q8H [facility] PRN Reason: Protocol Last Admin: 04/22/18 09:30 Dose: 200 mls/hr Loratadine (Claritin) 10 mg PO DAILY [facility] Last Admin: 04/22/18 09:47 Dose: 10 mg Oxycodone/Acetaminophen (Percocet 5/325 Mg Tab) 2 tab PO Q4H PRN PRN Reason: Pain, severe (8-10) Stop: 04/23/18 10:23 Last Admin: 04/22/18 06:43 Dose: 2 tab Pantoprazole Sodium (Protonix Ec Tab) 40 mg PO DAILY [facility] Last Admin: 04/22/18 09:47 Dose: 40 mg Polyethylene Glycol (Miralax) 17 gm PO DAILY [facility] Last Admin: 04/22/18 09:55 Dose: Not Given - Labs Labs: 04/20/18 07:37 04/20/18 07:37 - Constitutional Appears: No Acute Distress - Head Exam Head Exam: ATRAUMATIC, NORMAL INSPECTION - Eye Exam Eye Exam: EOMI, Normal appearance - ENT Exam ENT Exam: Mucous Membranes Moist - Respiratory Exam Respiratory Exam: Clear to Ausculation Bilateral, NORMAL BREATHING PATTERN. absent: Rales, Rhonchi, Wheezes, Respiratory Distress - Cardiovascular Exam Cardiovascular Exam: REGULAR RHYTHM, +S1, +S2 - GI/Abdominal Exam GI & Abdominal Exam: Soft, Normal Bowel Sounds. absent: Distended, Firm, Tenderness - Exam Additional comments: Dressings in right and left groin- serous drainage noted. Mild tenderness with palpation b/l; Torres in place - Extremities Exam Extremities Exam: Normal Inspection. absent: Pedal Edema, Tenderness - Neurological Exam Neurological Exam: Alert, Awake, Oriented x3 - Psychiatric Exam Psychiatric exam: Normal Affect, Normal Mood - Skin Skin Exam: Normal Color, Warm Assessment and Plan - Assessment and Plan (Free Text) Plan: Bilateral groin abscesses Afebrile, WBC WNL CXR (04/17/18): Negative for active disease Wound culture (04/18/18): + proteus mirabilis ID consulted, Dr. Gastelum; help appreciated - Linezolid 600mg IV Q12H (Started on 04/17/18) - Can switch to PO at discharge Dr. Siddiqui, Gen Surg web[employer] commerce consultant - Initial procedure on 04/18/18 - Repeated debridement on 04/19/18 - Schedule to return to OR for further debridement on 04/22 Medications: - Percocet 5/325mg 1 tab Q4H PRN pain [pain management per Dr. Siddiqui] - Toradol 30mg IV once in ED - Benadryl 25mg PO Q6H PRN for pruritus Asthma - Duonebs Q4H PRN SOB Anxiety - Continue home Xanax 1 mg PO BID Seasonal allergies - Continue home Claritin 10mg PO Daily Constipation - Bentyl 20mg PO TID Prophylaxis - VTE anticoagulant per surgery - SCDs - Protonix 40mg PO daily Disposition: Patient is NPO and scheduled for OR today, 04/22/18 for further debridement with Dr. Siddiqui. Case and management discussed with Dr. Diehl.
--- NOTE | 2018-04-22 11:12 | OP ---
PROCEDURE DATE: 04/19/2018 PREOPERATIVE DIAGNOSIS: Multiple groin and pelvic abscesses. POSTOPERATIVE DIAGNOSIS: Multiple groin and pelvic abscesses. PROCEDURE PERFORMED: Return to the operating room for change of packing under general anesthesia, washout and re-drainage of several abscesses, and a partial tissue flap closure. SURGEON: Nitish Siddiqui MD ANESTHESIA: General. BLOOD LOSS: 40 mL. POSTOPERATIVE CONDITION: Stable. INDICATIONS FOR SURGERY: This is a 37-year-old female with deep abscesses throughout her groin and pelvic region bilaterally who underwent excision of several inflammatory masses yesterday with underlying pus. She was taken back to the OR for change of packing under anesthesia and drainage of any further abscesses. This was a staged procedure. DESCRIPTION OF PROCEDURE: The patient was taken to the operating room, general anesthesia administered. The lower abdominal and pelvic dressings were all removed, and packings were removed. Some cultures will be taken. The areas were prepped and draped. The wounds were aggressively debrided, pulse irrigated, and any remaining collections were drained and cultured. There were a total of four wounds in the right groin and one wound in the left pelvic region. Some of the abscesses extended into the retroperitoneum. The partial tissue flap closures were performed at the periphery of some of the wounds using Monocryl. Central portion of those wounds were left open, and remaining wounds were left wide open and packed with wet saline gauze. The patient tolerated the procedure well and returned to recovery room in stable condition. Nitish Siddiqui MD
[2018-04-22 11:24] LABS: BASO % 0.4 % (0.0-2.0); EOS # 0.1 K/uL (0.0-0.7); EOS % 3.2 % (0.0-4.0); HEMOGLOBIN 9.1 g/dL (11.0-16.0); INR 1.1; LYMPH # 1.3 K/uL (1.0-4.3); LYMPH % 29.3 % (20.0-40.0); MEAN CELL VOLUME 91.5 fL (81.0-99.0); MEAN CORPUSCULAR HEMOGLOBIN 31.3 pg (27.0-31.0); MEAN CORPUSCULAR HGB CONC 34.2 g/dL (33.0-37.0); MONO # 0.3 K/uL (0.0-0.8); MONO % 6.7 % (0.0-10.0); NEUT # 2.6 K/uL (1.8-7.0); NEUT % 60.4 % (50.0-75.0); NRBC % 0.1 % (0.0-2.0); PROTHROMBIN TIME 11.7 SECONDS (9.7-12.2); RBC 2.92 Mil/uL (3.80-5.20); RED CELL DISTRIBUTION WIDTH 13.3 % (11.5-14.5); WHITE BLOOD COUNT 4.4 K/uL (4.8-10.8)
[2018-04-22] MEDS ORDERED: Lactated Ringer's 1,000 ML IV ONE (11:26)
[2018-04-22 11:31] LABS: ALB/GLOB RATIO 1.2 (1.0-2.1); ALBUMIN 3.2 g/dL (3.5-5.0); ALT/SGPT 20 U/L (9-52); AST/SGOT 17 U/L (14-36); BLOOD UREA NITROGEN 9 mg/dL (7-17); CALCIUM 8.7 mg/dl (8.6-10.4); GFR AFRICAN-AMERICAN > 60; GFR NON-AFRICAN AMERICAN > 60
[2018-04-22] MEDS ORDERED: Propofol 10 mg/ml Inj (20 ML) ONE (11:31)
[2018-04-22] MEDS ORDERED: Midazolam 2 MG/2 ML VIAL ONE (11:31)
[2018-04-22] MEDS ORDERED: Dexamethasone 4 mg/1 ml IVP PRN (12:05)
[2018-04-22] MEDS ORDERED: DiphenhydrAMINE 50 mg/ml Inj IVP PRN (12:05)
--- NOTE | 2018-04-22 13:14 | CP.PCM.PN ---
Subjective - Date & Time of Evaluation Date of Evaluation: 04/22/18 Time of Evaluation: 10:00 - Subjective Subjective: tolerating azactam for or today Objective - Vital Signs/Intake and Output Vital Signs (last 24 hours): Temp Pulse Resp BP Pulse Ox 97.1 F L 66 17 137/84 96 04/22/18 12:05 04/22/18 12:25 04/22/18 12:25 04/22/18 12:25 04/22/18 12:25 Intake and Output: 04/22/18 04/22/18 06:59 18:59 Intake Total 1500 1250 Output Total 1200 1100 Balance 300 150 - Medications Medications: Current Medications Albuterol/Ipratropium (Duoneb 3 Mg/0.5 Mg (3 Ml) Ud) 3 ml INH RQ4 PRN PRN Reason: Shortness of Breath Last Admin: 04/21/18 15:04 Dose: 3 ml Alprazolam (Xanax) 1 mg PO BID PRN PRN Reason: Anxiety Last Admin: 04/22/18 05:56 Dose: 1 mg Dexamethasone (Decadron Inj) 4 mg IVP ONCE PRN PRN Reason: Nausea/Vomiting Stop: 04/22/18 14:05 Dicyclomine HCl (Bentyl) 20 mg PO TID [facility] Last Admin: 04/22/18 09:51 Dose: 20 mg Diphenhydramine HCl (Benadryl) 25 mg PO Q6 PRN PRN Reason: Itching / Pruritus FIRST LINE Last Admin: 04/21/18 20:31 Dose: 25 mg Diphenhydramine HCl (Benadryl) 25 mg IVP Q6 PRN PRN Reason: Itching / Pruritus Stop: 04/22/18 14:05 Hydroxyzine HCl (Atarax) 25 mg PO BID PRN PRN Reason: Itching / Pruritus SECOND LINE Last Admin: 04/20/18 17:23 Dose: 25 mg Linezolid (Zyvox 600mg/300ml D5w) 600 mg in 300 mls @ 200 mls/hr IVPB Q12H [facility] PRN Reason: Protocol Last Admin: 04/22/18 05:48 Dose: 200 mls/hr Aztreonam 1 gm/ Sodium (Chloride) 100 mls @ 200 mls/hr IVPB Q8H [facility] PRN Reason: Protocol Last Admin: 04/22/18 09:30 Dose: 200 mls/hr Loratadine (Claritin) 10 mg PO DAILY [facility] Last Admin: 04/22/18 09:47 Dose: 10 mg Metoclopramide HCl (Reglan) 10 mg IVP ONCE PRN PRN Reason: Nausea/Vomiting Stop: 04/22/18 14:05 Morphine Sulfate (Morphine) 2 mg IVP Q10M PRN PRN Reason: Pain, moderate (4-7) Stop: 04/22/18 14:05 Last Admin: 04/22/18 12:27 Dose: 2 mg Oxycodone/Acetaminophen (Percocet 5/325 Mg Tab) 2 tab PO Q4H PRN PRN Reason: Pain, severe (8-10) Stop: 04/23/18 10:23 Last Admin: 04/22/18 06:43 Dose: 2 tab Pantoprazole Sodium (Protonix Ec Tab) 40 mg PO DAILY [facility] Last Admin: 04/22/18 09:47 Dose: 40 mg Polyethylene Glycol (Miralax) 17 gm PO DAILY [facility] Last Admin: 04/22/18 09:55 Dose: Not Given - Labs Labs: 04/22/18 11:09 04/22/18 11:09 PT 11.7 SECONDS (9.7-12.2) 04/22/18 11:09 INR 1.1 04/22/18 11:09 APTT 34 SECONDS (21-34) 04/22/18 11:09 - Constitutional Appears: Non-toxic, Chronically Ill - Head Exam Head Exam: NORMOCEPHALIC - Eye Exam Eye Exam: PERRL - ENT Exam ENT Exam: Mucous Membranes Dry - Neck Exam Neck Exam: absent: Lymphadenopathy - Respiratory Exam Respiratory Exam: Decreased Breath Sounds Assessment and Plan (1) Abscess of groin, left Status: Acute (2) Abscess Status: Acute (3) Abscess of groin, right Status: Acute
[2018-04-22 16:56] VITALS: RESP 20
[2018-04-22] MEDS: Albuterol-Ipratrop 3 mg / 0.5 (3 ml) UD INH PRN (22:30)
--- NOTE | 2018-04-23 00:07 | OP ---
PROCEDURE DATE: 04/22/2018 PREOPERATIVE DIAGNOSIS: Multiple groin and pelvic abscesses. POSTOPERATIVE DIAGNOSIS: Multiple groin and pelvic abscesses. PROCEDURE PERFORMED: Incision and drainage of multiple groin and pelvic abscesses with debridement, washout, change of packing, and partial closure. SURGEON: Nitish Siddiqui MD ANESTHESIA: General. BLOOD LOSS: 30 mL. POSTOPERATIVE CONDITION: Stable. INDICATIONS FOR SURGERY: This is a staged procedure. A 37-year-old female with multiple pelvic and soft tissue abscesses of the groin and pelvic region, taken back to the OR for change of packing, definitive closure of some of the wounds. DESCRIPTION OF PROCEDURE: The patient was taken to the operating room. General anesthesia was administered. The packings in the groins were removed. The areas were prepped and draped after cultures were taken. The wounds were all again debrided. Any remaining collections were drained and cultured. They were pulse-irrigated and some had partial tissue transfer closures at the periphery. The central portions of the wounds were again packed open with wet saline gauze, and a dry sterile dressing was placed. The patient tolerated the procedure well and returned to recovery room in stable condition. Nitish Siddiqui MD
[2018-04-23] MEDS: Oxycodone/Acetaminophen 5/325 mg Tab PO PRN ×3 (03:16→19:55)
[2018-04-23] MEDS: Linezolid 600 mg in D5W 300 ml 600 MG/300 ML BAG IVPB SCH ×2 (05:23→18:59)
--- NOTE | 2018-04-23 07:08 | CP.PCM.PN ---
Subjective - Date & Time of Evaluation Date of Evaluation: 04/23/18 Time of Evaluation: 06:59 - Subjective Subjective: PGY2- Progress note for Dr. Diehl Patient was seen and examined at bedside in no acute distress. Patient reports occasionally having a "sharp, stabbing" pain in her groin region as well as from her buttock down her leg. She has had this in the past when bedridden or when sitting in a car for long periods of time. She otherwise has no complaints. Patient denies chest pain, palpitations, dyspnea, cough, nausea, vomiting, fevers, headaches, abdominal pain, leg pain, calf pain, and leg swelling. She is ambulating without difficulty and reports tryign Objective - Vital Signs/Intake and Output Vital Signs (last 24 hours): Temp Pulse Resp BP Pulse Ox 98.2 F 85 20 121/78 98 04/23/18 00:00 04/23/18 00:00 04/23/18 00:00 04/23/18 00:00 04/23/18 00:00 Intake and Output: 04/22/18 04/23/18 18:59 06:59 Intake Total 1250 3100 Output Total 2300 Balance -1050 3100 - Medications Medications: Current Medications Albuterol/Ipratropium (Duoneb 3 Mg/0.5 Mg (3 Ml) Ud) 3 ml INH RQ4 PRN PRN Reason: Shortness of Breath Last Admin: 04/22/18 22:30 Dose: 3 ml Alprazolam (Xanax) 1 mg PO BID PRN PRN Reason: Anxiety Last Admin: 04/22/18 05:56 Dose: 1 mg Dicyclomine HCl (Bentyl) 20 mg PO TID [facility] Last Admin: 04/22/18 17:18 Dose: 20 mg Diphenhydramine HCl (Benadryl) 25 mg PO Q6 PRN PRN Reason: Itching / Pruritus FIRST LINE Last Admin: 04/22/18 23:51 Dose: 25 mg Hydroxyzine HCl (Atarax) 25 mg PO BID PRN PRN Reason: Itching / Pruritus SECOND LINE Last Admin: 04/23/18 05:32 Dose: 25 mg Linezolid (Zyvox 600mg/300ml D5w) 600 mg in 300 mls @ 200 mls/hr IVPB Q12H [facility] PRN Reason: Protocol Last Admin: 04/23/18 05:23 Dose: 200 mls/hr Aztreonam 1 gm/ Sodium (Chloride) 100 mls @ 200 mls/hr IVPB Q8H [facility] PRN Reason: Protocol Last Admin: 04/22/18 23:43 Dose: 200 mls/hr Loratadine (Claritin) 10 mg PO DAILY [facility] Last Admin: 04/22/18 09:47 Dose: 10 mg Oxycodone/Acetaminophen (Percocet 5/325 Mg Tab) 2 tab PO Q4H PRN PRN Reason: Pain, severe (8-10) Stop: 04/23/18 10:23 Last Admin: 04/23/18 03:16 Dose: 2 tab Pantoprazole Sodium (Protonix Ec Tab) 40 mg PO DAILY [facility] Last Admin: 04/22/18 09:47 Dose: 40 mg Polyethylene Glycol (Miralax) 17 gm PO DAILY [facility] Last Admin: 04/22/18 09:55 Dose: Not Given - Labs Labs: 04/22/18 11:09 04/22/18 11:09 PT 11.7 SECONDS (9.7-12.2) 04/22/18 11:09 INR 1.1 04/22/18 11:09 APTT 34 SECONDS (21-34) 04/22/18 11:09 - Additional Findings Additional findings: - Constitutional Appears: No Acute Distress - Head Exam Head Exam: ATRAUMATIC, NORMAL INSPECTION - Eye Exam Eye Exam: EOMI, Normal appearance - ENT Exam ENT Exam: Mucous Membranes Moist - Respiratory Exam Respiratory Exam: Clear to Ausculation Bilateral, NORMAL BREATHING PATTERN. absent: Rales, Rhonchi, Wheezes, Respiratory Distress - Cardiovascular Exam Cardiovascular Exam: REGULAR RHYTHM, +S1, +S2 - GI/Abdominal Exam GI & Abdominal Exam: Soft, Normal Bowel Sounds. absent: Distended, Firm, Tenderness - Exam Additional comments: Dressings in right and left groin- clean, dry, and intact. Mild tenderness with palpation b/l. - Extremities Exam Extremities Exam: Normal Inspection. absent: Pedal Edema, Tenderness - Neurological Exam Neurological Exam: Alert, Awake, Oriented x3 - Psychiatric Exam Psychiatric exam: Normal Affect, Normal Mood - Skin Skin Exam: Normal Color, Warm Assessment and Plan - Assessment and Plan (Free Text) Plan: Bilateral Groin Abscesses Afebrile, WBC WNL CXR (04/17/18): Negative for active disease Wound culture (04/18/18): + proteus mirabilis Wound culture (04/22/18): f/u ID consulted, Dr. Gastelum; help appreciated - Linezolid 600mg IV Q12H (Started on 04/17/18) - Aztreonam 1g IV Q8h (started on 04/21/18) - Can switch to PO at discharge Dr. Siddiqui, Gen Surg performance test consultant - Initial procedure on 04/18/18 - Repeat debridement on 04/19/18 - Repeat debridement on 04/22/18 Medications: - Percocet 5/325mg 1 tab Q4H PRN pain [pain management per Dr. Siddiqui] - Toradol 30mg IV once in ED - Benadryl 25mg PO Q6H PRN for pruritus Right leg pain - Chronic, intermittent - May be secondary to neuropathy - Will see pain management as outpatient, per Fazal - Starting Gabapentin 100mg BID Asthma - Duonebs Q4H PRN SOB Anxiety - Continue home Xanax 1 mg PO BID Seasonal allergies - Continue home Claritin 10mg PO Daily Constipation - Bentyl 20mg PO TID Prophylaxis - VTE anticoagulant per surgery - SCDs - Protonix 40mg PO daily Disposition: Case management consulted for [facility] placement or home services for a total of 7 days of IV antibiotics and daily dressing changes. When patient is discharged, patient must follow up with Dr. Siddiqui within 1 week. Case and management discussed with Dr. Diehl.
[2018-04-23] MEDS: Aztreonam 1 GM in Sodium Chloride 0.9% 100 ML IVPB SCH ×3 (08:26→23:29)
[2018-04-23] MEDS: Pantoprazole 40 mg EC Tab PO SCH (09:58)
[2018-04-23] MEDS: POLYETHYLENE GLYCOL 3350 17 GM/Dose PACKET PO SCH (10:01)
--- NOTE | 2018-04-23 17:12 | RAD ---
Date of service: 04/23/2018 HISTORY: verify right PICC COMPARISON: 04/17/2018 FINDINGS: LUNGS: No active pulmonary disease. PLEURA: No significant pleural effusion identified, no pneumothorax apparent. CARDIOVASCULAR: Normal. OSSEOUS STRUCTURES: No significant abnormalities. VISUALIZED UPPER ABDOMEN: Normal. OTHER FINDINGS: Right-sided PICC line is seen at appropriate position with the tip at the SVC right atrium junction IMPRESSION: No active disease. Appropriate position of the right-sided PICC line.
[2018-04-24] MEDS: Oxycodone/Acetaminophen 5/325 mg Tab PO PRN ×2 (03:14→11:35)
[2018-04-24] MEDS: Linezolid 600 mg in D5W 300 ml 600 MG/300 ML BAG IVPB SCH ×2 (05:16→18:00)
--- NOTE | 2018-04-24 07:26 | CP.PCM.PN ---
Subjective - Date & Time of Evaluation Date of Evaluation: 04/24/18 Time of Evaluation: 07:00 - Subjective Subjective: PGY2- Progress note for Dr. Diehl Patient seen and examined at bedside. Patient says she is feeling nauseous and had a few episodes of vomiting overnight. Patient had 4 episodes of loose diarrhea overnight. Patient admits to b/l groin pain. Patient says she feels chills. Patient denies any chest pain, shortness of breath, or abdominal pain. Objective - Vital Signs/Intake and Output Vital Signs (last 24 hours): Temp Pulse Resp BP Pulse Ox 99.1 F 75 20 123/74 97 04/23/18 23:10 04/23/18 23:10 04/23/18 23:10 04/23/18 23:10 04/23/18 23:10 Intake and Output: 04/24/18 04/24/18 06:59 18:59 Intake Total 1620 Balance 1620 - Medications Medications: Current Medications Albuterol/Ipratropium (Duoneb 3 Mg/0.5 Mg (3 Ml) Ud) 3 ml INH RQ4 PRN PRN Reason: Shortness of Breath Last Admin: 04/22/18 22:30 Dose: 3 ml Alprazolam (Xanax) 1 mg PO BID PRN PRN Reason: Anxiety Last Admin: 04/23/18 14:17 Dose: 1 mg Dicyclomine HCl (Bentyl) 20 mg PO TID [facility] Last Admin: 04/23/18 17:33 Dose: 20 mg Diphenhydramine HCl (Benadryl) 25 mg PO Q6 PRN PRN Reason: Itching / Pruritus FIRST LINE Last Admin: 04/22/18 23:51 Dose: 25 mg Gabapentin (Neurontin) 100 mg PO BID [facility] Last Admin: 04/23/18 17:31 Dose: 100 mg Hydroxyzine HCl (Atarax) 25 mg PO BID PRN PRN Reason: Itching / Pruritus SECOND LINE Last Admin: 04/23/18 23:32 Dose: 25 mg Linezolid (Zyvox 600mg/300ml D5w) 600 mg in 300 mls @ 200 mls/hr IVPB Q12H ROGERIO PRN Reason: Protocol Last Admin: 04/24/18 05:16 Dose: 200 mls/hr Aztreonam 1 gm/ Sodium (Chloride) 100 mls @ 200 mls/hr IVPB Q8H ROGERIO PRN Reason: Protocol Last Admin: 04/23/18 23:29 Dose: 200 mls/hr Loratadine (Claritin) 10 mg PO DAILY [facility] Last Admin: 04/23/18 09:58 Dose: 10 mg Oxycodone/Acetaminophen (Percocet 5/325 Mg Tab) 2 tab PO Q4H PRN PRN Reason: Pain, moderate (4-7) Stop: 04/26/18 19:09 Last Admin: 04/24/18 03:14 Dose: 2 tab Pantoprazole Sodium (Protonix Ec Tab) 40 mg PO DAILY [facility] Last Admin: 04/23/18 09:58 Dose: 40 mg Polyethylene Glycol (Miralax) 17 gm PO DAILY [facility] Last Admin: 04/23/18 10:01 Dose: Not Given - Labs Labs: 04/22/18 11:09 04/22/18 11:09 PT 11.7 SECONDS (9.7-12.2) 04/22/18 11:09 INR 1.1 04/22/18 11:09 APTT 34 SECONDS (21-34) 04/22/18 11:09 - Additional Findings Additional findings: - Constitutional Appears: No Acute Distress - Head Exam Head Exam: ATRAUMATIC, NORMAL INSPECTION - Eye Exam Eye Exam: EOMI, Normal appearance - ENT Exam ENT Exam: Mucous Membranes Moist - Respiratory Exam Respiratory Exam: Clear to Ausculation Bilateral, NORMAL BREATHING PATTERN. absent: Rales, Rhonchi, Wheezes, Respiratory Distress - Cardiovascular Exam Cardiovascular Exam: REGULAR RHYTHM, +S1, +S2 - GI/Abdominal Exam GI & Abdominal Exam: Soft, Normal Bowel Sounds. absent: Distended, Firm, Tenderness - Exam Additional comments: Dressings in right and left groin- clean, dry, and intact. Mild tenderness with palpation b/l. - Extremities Exam Extremities Exam: Normal Inspection. absent: Pedal Edema, Tenderness - Neurological Exam Neurological Exam: Alert, Awake, Oriented x3 - Psychiatric Exam Psychiatric exam: Normal Affect, Normal Mood - Skin Skin Exam: Normal Color, Warm Assessment and Plan - Assessment and Plan (Free Text) Assessment: Bilateral Groin Abscesses Afebrile, WBC WNL PICC line placed on 04/23/18 CXR (04/17/18): Negative for active disease Wound culture (04/18/18): + proteus mirabilis Wound culture (04/22/18): e coli, proteus mirabilis ID consulted, Dr. Gastelum; help appreciated Dr. Siddiqui, Gen Surg environmental remediation consultant - Initial procedure on 04/18/18 - Repeat debridement on 04/19/18 - Repeat debridement on 04/22/18 Medications: - Linezolid 600mg IV Q12H (Started on 04/17/18) - Aztreonam 1g IV Q8h (started on 04/21/18) - Percocet 5/325mg 1 tab Q4H PRN pain [pain management per Dr. Siddiqui] - Toradol 30mg IV once in ED - Benadryl 25mg PO Q6H PRN for pruritus Diarrhea -c dif ordered - Flagyl 500mg q8h started on 04/24/18 Right leg pain - Chronic, intermittent - May be secondary to neuropathy - Will see pain management as outpatient, per Fazal - Starting Gabapentin 100mg BID Asthma - Duonebs Q4H PRN SOB Anxiety - Continue home Xanax 1 mg PO BID Seasonal allergies - Continue home Claritin 10mg PO Daily Constipation - Bentyl 20mg PO TID Prophylaxis - VTE anticoagulant per surgery - SCDs - Protonix 40mg PO daily Disposition: Case management consulted for home services for a total of 7 days of IV antibiotics and daily dressing changes. When patient is discharged, patient must follow up with Dr. Siddiqui within 1 week. Case and management discussed with Dr. Diehl.
[2018-04-24] MEDS: Aztreonam 1 GM in Sodium Chloride 0.9% 100 ML IVPB SCH ×2 (09:19→16:07)
[2018-04-24] MEDS: Pantoprazole 40 mg EC Tab PO SCH (09:20)
[2018-04-24] MEDS: POLYETHYLENE GLYCOL 3350 17 GM/Dose PACKET PO SCH (09:21)
[2018-04-24] MEDS ORDERED: metroNIDAZOLE IV 500 mg/100 ml 500 MG/100 ML BAG IVPB SCH (14:00)
--- NOTE | 2018-04-24 15:17 | CP.PCM.PN ---
Subjective - Date & Time of Evaluation Date of Evaluation: 04/24/18 Time of Evaluation: 08:00 - Subjective Subjective: multiple complaints no new ciultures Objective - Vital Signs/Intake and Output Vital Signs (last 24 hours): Temp Pulse Resp BP Pulse Ox 98 F 62 20 103/66 96 04/24/18 08:00 04/24/18 08:00 04/24/18 08:00 04/24/18 08:00 04/24/18 08:00 Intake and Output: 04/24/18 04/24/18 06:59 18:59 Intake Total 1620 400 Balance 1620 400 - Medications Medications: Current Medications Albuterol/Ipratropium (Duoneb 3 Mg/0.5 Mg (3 Ml) Ud) 3 ml INH RQ4 PRN PRN Reason: Shortness of Breath Last Admin: 04/22/18 22:30 Dose: 3 ml Alprazolam (Xanax) 1 mg PO BID PRN PRN Reason: Anxiety Last Admin: 04/23/18 14:17 Dose: 1 mg Dicyclomine HCl (Bentyl) 20 mg PO TID [facility] Last Admin: 04/24/18 14:10 Dose: 20 mg Diphenhydramine HCl (Benadryl) 25 mg PO Q6 PRN PRN Reason: Itching / Pruritus FIRST LINE Last Admin: 04/22/18 23:51 Dose: 25 mg Gabapentin (Neurontin) 100 mg PO BID [facility] Last Admin: 04/24/18 09:20 Dose: 100 mg Hydroxyzine HCl (Atarax) 25 mg PO BID PRN PRN Reason: Itching / Pruritus SECOND LINE Last Admin: 04/23/18 23:32 Dose: 25 mg Linezolid (Zyvox 600mg/300ml D5w) 600 mg in 300 mls @ 200 mls/hr IVPB Q12H ROGERIO PRN Reason: Protocol Last Admin: 04/24/18 05:16 Dose: 200 mls/hr Aztreonam 1 gm/ Sodium (Chloride) 100 mls @ 200 mls/hr IVPB Q8H ROGERIO PRN Reason: Protocol Last Admin: 04/24/18 09:19 Dose: 200 mls/hr Metronidazole (Flagyl) 500 mg in 100 mls @ 100 mls/hr IVPB Q8H ROGERIO PRN Reason: Protocol Last Admin: 04/24/18 14:13 Dose: 100 mls/hr Loratadine (Claritin) 10 mg PO DAILY [facility] Last Admin: 04/24/18 09:20 Dose: 10 mg Oxycodone/Acetaminophen (Percocet 5/325 Mg Tab) 2 tab PO Q4H PRN PRN Reason: Pain, moderate (4-7) Stop: 04/26/18 19:09 Last Admin: 04/24/18 11:35 Dose: 2 tab Pantoprazole Sodium (Protonix Ec Tab) 40 mg PO DAILY [facility] Last Admin: 04/24/18 09:20 Dose: 40 mg Polyethylene Glycol (Miralax) 17 gm PO DAILY [facility] Last Admin: 04/24/18 09:21 Dose: Not Given - Labs Labs: 04/22/18 11:09 04/22/18 11:09 PT 11.7 SECONDS (9.7-12.2) 04/22/18 11:09 INR 1.1 04/22/18 11:09 APTT 34 SECONDS (21-34) 04/22/18 11:09 - Constitutional Appears: Non-toxic, Chronically Ill - Head Exam Head Exam: NORMOCEPHALIC - Eye Exam Eye Exam: PERRL - ENT Exam ENT Exam: Mucous Membranes Dry - Neck Exam Neck Exam: absent: Lymphadenopathy - Respiratory Exam Respiratory Exam: Decreased Breath Sounds - Cardiovascular Exam Cardiovascular Exam: REGULAR RHYTHM - GI/Abdominal Exam GI & Abdominal Exam: Distended, Soft Assessment and Plan (1) Abscess of groin, left Status: Acute (2) Abscess Status: Acute (3) Abscess of groin, right Status: Acute - Assessment and Plan (Free Text) Assessment: ecoli and proteus from wound multiple allergies wound care to cont check labs in am
[2018-04-25] MEDS: Aztreonam 1 GM in Sodium Chloride 0.9% 100 ML IVPB SCH ×2 (00:05→09:00)
[2018-04-25] MEDS: Oxycodone/Acetaminophen 5/325 mg Tab PO PRN ×2 (00:12→06:55)
[2018-04-25] MEDS: Linezolid 600 mg in D5W 300 ml 600 MG/300 ML BAG IVPB SCH (05:03)
[2018-04-25 07:49] LABS: BASO % 0.6 % (0.0-2.0); EOS # 0.2 K/uL (0.0-0.7); EOS % 4.6 % (0.0-4.0); HEMOGLOBIN 10.8 g/dL (11.0-16.0); LYMPH % 49.2 % (20.0-40.0); MEAN CELL VOLUME 91.3 fL (81.0-99.0); MEAN CORPUSCULAR HEMOGLOBIN 30.9 pg (27.0-31.0); MEAN CORPUSCULAR HGB CONC 33.9 g/dL (33.0-37.0); MEAN PLATELET VOLUME 7.5 fL (7.2-11.7); MONO # 0.4 K/uL (0.0-0.8); MONO % 9.5 % (0.0-10.0); NEUT # 1.5 K/uL (1.8-7.0); NEUT % 36.1 % (50.0-75.0); RBC 3.48 Mil/uL (3.80-5.20); RED CELL DISTRIBUTION WIDTH 13.7 % (11.5-14.5); WHITE BLOOD COUNT 4.1 K/uL (4.8-10.8)
[2018-04-25 08:12] LABS: ALB/GLOB RATIO 1.2 (1.0-2.1); ALBUMIN 3.8 g/dL (3.5-5.0); ALT/SGPT 46 U/L (9-52); AST/SGOT 53 U/L (14-36); BLOOD UREA NITROGEN 10 mg/dL (7-17); GFR AFRICAN-AMERICAN > 60; GFR NON-AFRICAN AMERICAN > 60
[2018-04-25 08:27] VITALS: BP 128/90; PULSE 76; TEMP 98.1; O2SAT 98
[2018-04-25] MEDS: Pantoprazole 40 mg EC Tab PO SCH (09:42)
[2018-04-25] MEDS: POLYETHYLENE GLYCOL 3350 17 GM/Dose PACKET PO SCH (09:42)
--- NOTE | 2018-04-25 16:11 | CP.PCM.DIS ---
Provider - Provider Date of Admission: 04/17/18 13:43 Attending physician: Viviane Diehl MD Primary care physician: Dr. Diehl Consults: ID: Dr. Gastelum Surgery: Dr. Siddiqui Time Spent in preparation of Discharge (in minutes): 45 Diagnosis - Discharge Diagnosis (1) Abscess of groin, left Status: Acute (2) Abscess of groin, right Status: Acute (3) Allergic urticaria Status: Resolved (4) Abdominal pain Status: Resolved Hospital Course - Lab Results Lab Results: Micro Results 04/22/18 12:13 Other: Please Indicate Gram Stain - Final 04/22/18 12:13 Other: Please Indicate Wound Culture - Final Escherichia Coli Proteus Mirabilis 04/22/18 12:11 Other: Please Indicate Gram Stain - Final 04/22/18 12:11 Other: Please Indicate Wound Culture - Final Proteus Mirabilis 04/19/18 14:42 Other: Please Indicate Gram Stain - Final 04/19/18 14:42 Other: Please Indicate Wound Culture - Final Proteus Mirabilis 04/18/18 15:25 Groin Gram Stain - Final 04/18/18 15:25 Groin Wound Culture - Final Proteus Mirabilis Most Recent Lab Values WBC 4.1 K/uL (4.8-10.8) L 04/25/18 07:34 RBC 3.48 Mil/uL (3.80-5.20) L 04/25/18 07:34 Hgb 10.8 g/dL (11.0-16.0) L 04/25/18 07:34 Hct 31.8 % (34.0-47.0) L 04/25/18 07:34 MCV 91.3 fL (81.0-99.0) 04/25/18 07:34 MCH 30.9 pg (27.0-31.0) 04/25/18 07:34 MCHC 33.9 g/dL (33.0-37.0) 04/25/18 07:34 RDW 13.7 % (11.5-14.5) 04/25/18 07:34 Plt Count 314 K/uL (130-400) 04/25/18 07:34 MPV 7.5 fL (7.2-11.7) 04/25/18 07:34 Neut % (Auto) 36.1 % (50.0-75.0) L 04/25/18 07:34 Lymph % (Auto) 49.2 % (20.0-40.0) H 04/25/18 07:34 [place] % (Auto) 9.5 % (0.0-10.0) 04/25/18 07:34 Eos % (Auto) 4.6 % (0.0-4.0) H 04/25/18 07:34 Baso % (Auto) 0.6 % (0.0-2.0) 04/25/18 07:34 Neut # (Auto) 1.5 K/uL (1.8-7.0) L 04/25/18 07:34 Lymph # (Auto) 2.0 K/uL (1.0-4.3) 04/25/18 07:34 [place] # (Auto) 0.4 K/uL (0.0-0.8) 04/25/18 07:34 Eos # (Auto) 0.2 K/uL (0.0-0.7) 04/25/18 07:34 Baso # (Auto) 0.0 K/uL (0.0-0.2) 04/25/18 07:34 PT 11.7 SECONDS (9.7-12.2) 04/22/18 11:09 INR 1.1 04/22/18 11:09 APTT 34 SECONDS (21-34) 04/22/18 11:09 Sodium 139 mmol/L (132-148) 04/25/18 07:34 Potassium 4.2 mmol/L (3.6-5.2) 04/25/18 07:34 Chloride 105 mmol/L (98-107) 04/25/18 07:34 Carbon Dioxide 25 mmol/L (22-30) 04/25/18 07:34 Anion Gap 13 (10-20) 04/25/18 07:34 BUN 10 mg/dL (7-17) 04/25/18 07:34 Creatinine 0.9 mg/dL (0.7-1.2) 04/25/18 07:34 Est GFR ( Amer) > 60 04/25/18 07:34 Est GFR (Non-Af Amer) > 60 04/25/18 07:34 Random Glucose 105 mg/dL (65-105) 04/25/18 07:34 Calcium 9.0 mg/dl (8.6-10.4) 04/25/18 07:34 Phosphorus 3.7 mg/dL (2.5-4.5) 04/25/18 07:34 Magnesium 1.7 mg/dL (1.6-2.3) 04/25/18 07:34 Total Bilirubin 0.2 mg/dL (0.2-1.3) 04/25/18 07:34 AST 53 U/L (14-36) H D 04/25/18 07:34 ALT 46 U/L (9-52) 04/25/18 07:34 Alkaline Phosphatase 71 U/L (38-126) 04/25/18 07:34 Total Protein 7.0 g/dL (6.3-8.3) 04/25/18 07:34 Albumin 3.8 g/dL (3.5-5.0) 04/25/18 07:34 Globulin 3.2 gm/dL (2.2-3.9) 04/25/18 07:34 Albumin/Globulin Ratio 1.2 (1.0-2.1) 04/25/18 07:34 Urine Color Straw (YELLOW) 04/17/18 14:01 Urine Clarity Clear (Clear) 04/17/18 14:01 Urine pH 6.0 (5.0-8.0) 04/17/18 14:01 Ur Specific [place] 1.002 (1.003-1.030) L 04/17/18 14:01 Urine Protein Negative mg/dL (NEGATIVE) 04/17/18 14:01 Urine Glucose (UA) Normal mg/dL (Normal) 04/17/18 14:01 Urine Ketones Negative mg/dL (NEGATIVE) 04/17/18 14:01 Urine Blood Negative (NEGATIVE) 04/17/18 14:01 Urine Nitrate Negative (NEGATIVE) 04/17/18 14:01 Urine Bilirubin Negative (NEGATIVE) 04/17/18 14:01 Urine Urobilinogen Normal mg/dL (0.2-1.0) 04/17/18 14:01 Ur Leukocyte Esterase Neg [place]/uL (Negative) 04/17/18 14:01 Urine WBC (Auto) 1 /hpf (0-5) 04/17/18 14:01 Urine RBC (Auto) 1 /hpf (0-3) 04/17/18 14:01 Ur Squamous Epith Cells 1 /hpf (0-5) 04/17/18 14:01 Urine HCG, Qual Negative (NEGATIVE) 04/22/18 10:23 C. difficile Ag & Toxin Negative (NEGATIVE) 04/24/18 13:46 Blood Type A POSITIVE 04/19/18 11:46 Antibody Screen Negative 04/19/18 11:46 - Hospital Course Hospital Course: Patient is a 37 y/o female with PMHx of gastritis, asthma, and anxiety who presented to ED with complaints of painful right and left groin abscesses. Patient has a history of multiple admissions for the same complaint. Patient had severe pain with drainage. Dr. Siddiqui, surgery was consulted. Patient had debridement done on 04/18, 04/19 , and 04/22. Dr. Gastelum, ID, was consulted who put the patient on Linezolid 600mg iv q12h and Aztreonam 1g iv q8h. Wound culture on 04/18 and 04/19 showed proteus mirabilis. Wound culture on 04/22 showed e coli and proteus mirabilis. Patient was afebrile and without an elevated white blood cell count throughout hospital course. Patient will continue IV antibiotics with home nursing until 04/27/18. Patient will also have wound care at the house to clean and change the packing and dressings. Patient will need to follow up with Dr. Siddiqui for follow up next week. While in the hospital patient also complained of left sided leg pain which may be secondary to neuropathy vs disc herniations. Patient admitted to having low back disc herniations and having been told to see ortho in the past. Patient was given Gabapentin 100mg BID. Patient will need to follow up with Dr. Diehl and ortho as an outpatient for this pain. Patient has a history of asthma and was treated with duonebs as needed. Patient has a history of many allergies and was treated with Claritin, Benadryl, and Atarax. For patient's chronic anxiety, patient was continued on Xanax. While admitted patient complained of 1 day of diarrhea. C dif was ordered and found to be negative. Diarrhea resolved. Patient also had some nausea and vomiting secondary to the antibiotics. Patient was treated with Zofran. Upon discharge patient was feeling better. Patient had mild pain at the surgical sites. Patient had no vomiting or diarrhea. This is a summary of the patient's hospital course. Please see chart for full details. Discharge Exam - Additional Findings Additional findings: - Constitutional Appears: No Acute Distress - Head Exam Head Exam: ATRAUMATIC, NORMAL INSPECTION - Eye Exam Eye Exam: EOMI, Normal appearance - ENT Exam ENT Exam: Mucous Membranes Moist - Respiratory Exam Respiratory Exam: Clear to Ausculation Bilateral, NORMAL BREATHING PATTERN. absent: Rales, Rhonchi, Wheezes, Respiratory Distress - Cardiovascular Exam Cardiovascular Exam: REGULAR RHYTHM, +S1, +S2 - GI/Abdominal Exam GI & Abdominal Exam: Soft, Normal Bowel Sounds. absent: Distended, Firm, Tenderness - Exam Additional comments: Dressings in right and left groin- clean, dry, and intact. Mild tenderness with palpation b/l. - Extremities Exam Extremities Exam: Normal Inspection. absent: Pedal Edema, Tenderness - Neurological Exam Neurological Exam: Alert, Awake, Oriented x3 - Psychiatric Exam Psychiatric exam: Normal Affect, Normal Mood - Skin Skin Exam: Normal Color, Warm Discharge Plan - Discharge Medications Prescriptions: Aztreonam [Azactam] 1 gm IVPB Q8H 3 Days #8 gm Linezolid 600 mg in D5W 300 ml [Zyvox 600mg/300ml D5W] 600 mg IVPB Q12H #5 bag Ondansetron [Zofran Odt] 4 mg PO Q6H 7 Days tab.trisha Pantoprazole Sodium [Protonix] 20 mg PO DAILY #14 tablet. traMADol [Ultram] 50 mg PO Q8H PRN #21 tab PRN Reason: Pain, Severe (8-10) - Follow Up Plan Condition: STABLE Disposition: HOME/ ROUTINE Instructions: Abscess Incision and Drainage (DC) Additional Instructions: Patient stable for discharge as per Dr. Gtz and Dr. Siddiqui. Patient to continue IV antibiotics at home. Last day is 04/27/18. Patient to resume home medications. Patient to get dressing changes with wound care. Patient to follow up with Dr. Siddiqui within one week. Patient to follow up with Dr. Diehl within 2 weeks. Patient to return to Emergency Room if having extreme pain, fevers, or green/ yellow discharge from her wounds. Referrals: Viviane Diehl MD [Staff Provider] - Nitish Siddiqui MD [Staff Provider] -
== END 2018-04-25 15:00 | disposition home or self-care (01) | DRG 575 ==
LOC: C.ER 12:12 → C.9E 13:43 → C.3T 14:37 → UNDODISIN 04-25 14:13
PROVIDERS: ADMIT Internal Medicine Pulmonary Disease; ATTEND Internal Medicine Pulmonary Disease
PROC: 0HX7XZZ Transfer Abdomen Skin, External Approach (ICD-10-PCS; 2018-04-18)
PROC: 0W9H0ZX Drainage of Retroperitoneum, Open Approach, Diagnostic (ICD-10-PCS; 2018-04-18)
PROC: 0HXJXZZ Transfer Left Upper Leg Skin, External Approach (ICD-10-PCS; 2018-04-18)
PROC: 0HXHXZZ Transfer Right Upper Leg Skin, External Approach (ICD-10-PCS; 2018-04-18)
PROC: 0HBHXZZ Excision of Right Upper Leg Skin, External Approach (ICD-10-PCS; 2018-04-18)
PROC: 0HBJXZZ Excision of Left Upper Leg Skin, External Approach (ICD-10-PCS; principal; 2018-04-18 13:15)
PROC: 0HRJX74 Replacement of Left Upper Leg Skin with Autologous Tissue Substitute, Partial Thickness, External Approach (ICD-10-PCS; 2018-04-19)
PROC: 0HRHX74 Replacement of Right Upper Leg Skin with Autologous Tissue Substitute, Partial Thickness, External Approach (ICD-10-PCS; 2018-04-19)
PROC: 0H9AXZZ Drainage of Inguinal Skin, External Approach (ICD-10-PCS; 2018-04-19)
PROC: 0H9AXZZ Drainage of Inguinal Skin, External Approach (ICD-10-PCS; 2018-04-19)
PROC: 0Y960ZZ Drainage of Left Inguinal Region, Open Approach (ICD-10-PCS; 2018-04-22)
PROC: 0Y950ZZ Drainage of Right Inguinal Region, Open Approach (ICD-10-PCS; 2018-04-22)
PROC: 0HDJXZZ Extraction of Left Upper Leg Skin, External Approach (ICD-10-PCS; 2018-04-22)
PROC: 0HDHXZZ Extraction of Right Upper Leg Skin, External Approach (ICD-10-PCS; 2018-04-22)
DX: L02.214 Cutaneous abscess of groin (principal); F41.9 Anxiety disorder, unspecified; J45.909 Unspecified asthma, uncomplicated; L50.0 Allergic urticaria; N73.9 Female pelvic inflammatory disease, unspecified; Z87.01 Personal history of pneumonia (recurrent); Z87.891 Personal history of nicotine dependence

== ENCOUNTER 2018-04-26 14:17 | Inpatient (IN) | payer BC ==
[2018-04-26 14:17] VITALS: BMI 33.4
[2018-04-26 15:14] LABS: BASO % 0.7 % (0.0-2.0); EOS # 0.1 K/uL (0.0-0.7); EOS % 1.7 % (0.0-4.0); LYMPH # 1.6 K/uL (1.0-4.3); LYMPH % 29.3 % (20.0-40.0); MEAN CORPUSCULAR HGB CONC 34.1 g/dL (33.0-37.0); MEAN PLATELET VOLUME 7.2 fL (7.2-11.7); MONO # 0.4 K/uL (0.0-0.8); MONO % 7.6 % (0.0-10.0); NEUT # 3.2 K/uL (1.8-7.0); NEUT % 60.7 % (50.0-75.0); RBC 3.86 Mil/uL (3.80-5.20); RED CELL DISTRIBUTION WIDTH 13.4 % (11.5-14.5); WHITE BLOOD COUNT 5.3 K/uL (4.8-10.8)
--- NOTE | 2018-04-26 15:26 | C.PDOC ---
History Of Present Illness 37 y/o female presents to ED c/o tactile fever, fatigue, and generalized weakness. Pt was discharged from hospital yesterday after being admitted for hydroadenitis. Pt also had PICC line inserted. Pt states she was referred to ER for evaluation of pain to right arm. She did not have arm discomfort yesterday. Denies any other complaints. Time Seen by Provider: 04/26/18 14:42 Chief Complaint (Nursing): Abnormal Skin Integrity History Per: Patient History/Exam Limitations: no limitations Past Medical History Reviewed: Historical Data, Nursing Documentation, Vital Signs Vital Signs: Last Vital Signs Temp 98.4 F 04/26/18 23:48 Pulse 69 04/26/18 23:48 Resp 20 04/26/18 23:48 BP 138/87 04/26/18 23:48 Pulse Ox 100 04/27/18 07:19 - Medical History PMH: Anxiety, Asthma, Gastritis, Gall Bladder Disease, Pneumonia (MID. 2016 ) Denies: Chronic Kidney Disease Surgical History: Cholecystectomy, Endoscopy, Tonsillectomy, ( Myomectomy) - [facility] Procedures DRAINAGE OF GENITALIA SKIN, EXTERNAL APPROACH (04/17/18) DRAINAGE OF LEFT INGUINAL REGION, OPEN APPROACH (04/17/18) DRAINAGE OF PELVIC SUBCU/FASCIA, OPEN APPROACH (03/07/18) DRAINAGE OF PERINEUM SKIN, EXTERNAL APPROACH (04/19/16) DRAINAGE OF RETROPERITONEUM, OPEN APPROACH, DIAGNOSTIC (04/17/18) DRAINAGE OF RIGHT INGUINAL REGION, OPEN APPROACH (04/17/18) EXCISION OF GENITALIA SKIN, EXTERNAL APPROACH (03/25/18) EXCISION OF LEFT UPPER LEG SKIN, EXTERNAL APPROACH (04/17/18) EXCISION OF RIGHT UPPER LEG SKIN, EXTERNAL APPROACH (04/17/18) EXCISION OF UTERUS, OPEN APPROACH (04/19/16) EXTRACTION OF GENITALIA SKIN, EXTERNAL APPROACH (03/25/18) EXTRACTION OF LEFT UPPER LEG SKIN, EXTERNAL APPROACH (04/17/18) EXTRACTION OF RIGHT UPPER LEG SKIN, EXTERNAL APPROACH (04/17/18) REPLACE L UP LEG SKIN W AUTOL SUB, PART THICK, MARBLE SUPERVISOR (04/17/18) REPLACE R UP LEG SKIN W AUTOL SUB, PART THICK, MARBLE SUPERVISOR (04/17/18) TRANSFER ABDOMEN SKIN, EXTERNAL APPROACH (04/17/18) TRANSFER LEFT UPPER LEG SKIN, EXTERNAL APPROACH (04/17/18) TRANSFER RIGHT UPPER LEG SKIN, EXTERNAL APPROACH (04/17/18) Family History: States: Unknown Family Hx - Social History Hx Tobacco Use: Yes Hx Alcohol Use: No Hx Substance Use: No - Immunization History Hx Tetanus Toxoid Vaccination: Yes Hx Influenza Vaccination: No Hx Pneumococcal Vaccination: No Review Of Systems Except As Marked, All Systems Reviewed And Found Negative. Constitutional: Positive for: Fever, Weakness Cardiovascular: Negative for: Chest Pain, Palpitations Respiratory: Negative for: Cough, Shortness of Breath Gastrointestinal: Negative for: Nausea, Vomiting, Abdominal Pain Musculoskeletal: Positive for: Arm Pain (right) Neurological: Negative for: Weakness, Numbness Physical Exam - Physical Exam Appears: Non-toxic, No Acute Distress Skin: Normal Color, Warm, Dry Head: Atraumatic, Normacephalic Eye(s): bilateral: Normal Inspection Oral Mucosa: Moist Cardiovascular: Rhythm Regular Respiratory: Normal Breath Sounds, No Rales, No Rhonchi, No Wheezing Gastrointestinal/Abdominal: Soft, No Tenderness Pelvic: Other (deferred evaluation of inguinal hydroadenitis site) Extremity: Normal ROM, Tenderness (tenderness to right arm by picc line), Capillary Refill (less than 2 seconds), No Swelling (no swelling or erythema to right arm), Other (PICC line in place) Extremity: Bilateral: Other (dressing intact in inguinal region bilaterally ) Pulses: Left Radial: Normal, Right Radial: Normal Neurological/Psych: Oriented x3, Normal Speech ED Course And Treatment - Laboratory Results Result Diagrams: 04/26/18 15:09 04/26/18 15:09 ECG: Interpreted By Me, Viewed By Me ECG Rhythm: Sinus Rhythm ECG Interpretation: No Acute Changes Interpretation Of ECG: Normal intervals, normal axis. No ST/T wave changes. Rate From EC O2 Sat by Pulse Oximetry: 100 Pulse Ox Interpretation: Normal Medical Decision Making Medical Decision Making: Blood work, UA, CXR, EKG, venous duplex ordered and reviewed. Impression: Weakness Case discussed with Dr. Gtz who agrees upon admission, however, to have wound services take care of patient's dressings. Pt is requesting medicated honey, states she has it at home. notes her mother went home to get the medicated honey. Patient would not allow me to change dressing as she initially wanted wound care to do so and subsequently wanted her medicated honey applied. Case discussed with Dr. Gastelum, Dr. Martinez and pmd, Dr. Melissa Diehl. Disposition Discussed With DrJun: Oliva Gtz Doctor Will See Patient In The: Hospital Counseled Patient/Family Regarding: Studies Performed, Diagnosis - Disposition Disposition: HOSPITALIZED Disposition Time: 17:09 Condition: FAIR - Clinical Impression Clinical Impression: Weakness - Scribe Statement The provider has reviewed the documentation as recorded by the Scribe KP All medical record entries made by the Scribe were at my direction and personally dictated by me. I have reviewed the chart and agree that the record accurately reflects my personal performance of the history, physical exam, medical decision making, and the department course for this patient. I have also personally directed, reviewed, and agree with the discharge instructions and disposition.
[2018-04-26 15:41] LABS: SQUAMOUS EPITHIAL 3 /hpf (0-5); URINE BILIRUBIN NEGATIVE (NEGATIVE); URINE BLOOD NEGATIVE (NEGATIVE); URINE CLARITY Clear (Clear); URINE COLOR Yellow (YELLOW); URINE GLUCOSE (UA) NORMAL (Normal); URINE LEUKOCYTE ESTERASE NEG Leu/uL (Negative); URINE PROTEIN NEGATIVE (NEGATIVE); URINE UROBILINOGEN NORMAL mg/dL (0.2-1.0)
--- NOTE | 2018-04-26 16:07 | RAD ---
HISTORY: COMPARISON: 04/17/2018 TECHNIQUE: Chest PA and lateral FINDINGS: LINES AND TUBES: None. LUNG AND PLEURA: The lungs are well inflated and clear. No pleural effusion or pneumothorax. HEART AND MEDIASTINUM: The heart is not enlarged. The hilar and mediastinal contours are within normal limits. SKELETAL STRUCTURES: The bony structures are within normal limits for the patient's age. VISUALIZED UPPER ABDOMEN: Normal. OTHER FINDINGS: None. IMPRESSION: No active pulmonary disease.
[2018-04-26 16:15] LABS: BLOOD UREA NITROGEN 6 mg/dL (7-17); GFR NON-AFRICAN AMERICAN > 60
[2018-04-26 16:16] LABS: CALCIUM 9.9 mg/dl (8.6-10.4)
[2018-04-26 16:17] LABS: ALB/GLOB RATIO 1.2 (1.0-2.1); ALBUMIN 4.5 g/dL (3.5-5.0); ALT/SGPT 72 U/L (9-52); AST/SGOT 56 U/L (14-36)
--- NOTE | 2018-04-26 18:20 | CP.PCM.HP ---
<Addy Wilson - Last Filed: 04/26/18 18:52> History of Present Illness - History of Present Illness History of Present Illness: CC: arm was hot and swollen HPI: Patient is a 37 y.o female with PMH of gastritis, asthma, anxiety, bilateral inguinal abscesses, and disc herniations who presents to the emergency department for evaluation of swollen right arm, fever, and feeling weak. Patient states that her arm is more swollen today and red which prompted her to come to the ED. Patient states the pain started at midnight before she was to take her antibiotics at 1 am. Patient reports fevers and chills. Patient denies current abdominal pain. Patient reports nausea with 4 episodes of vomiting, no blood, the most recent 3 hours ago. Patient states she has had 9 episodes of diarrhea non bloody. Patient had wound care yesterday. Patient reports no appetite. Patient was discharged yesterday (04/25) s/p bilateral drainage of inguinal abscesses with Dr. Siddiqui that were culture positive for proteus mirablis and e coli. Patient received PICC line and was to continue antibiotics with assistance from home nursing care. Full Code: yes Family Hx: non-contributory PSHx: Cholecystectomy, Endoscopy, Tonsillectomy, (Myomectomy) DRAINAGE OF LEFT INGUINAL REGION, OPEN APPROACH (01/07/18) DRAINAGE OF PERINEUM SKIN, EXTERNAL APPROACH (04/19/16) DRAINAGE OF RIGHT INGUINAL REGION, OPEN APPROACH (01/07/18) EXCISION OF UTERUS, OPEN APPROACH (04/19/16) PMH: gastritis, asthma, anxiety, right and left inguinal abscesses, disc herniations Social Hx: Tobacco- 14 years, 3 days/pack; drinks socially 5 drinks per event; Drugs:smokes marijuana joint; lives at home with sister and nieces/nephews; works at an [email or web address] PMD: Dr. Diehl Allergies: adhesive tape, ciprofloxacin, ciprofloxacin HCl, levaquin, bactrim Review of Systems: Pertinent Positives: weakness, fevers, chills, nausea, vomiting, diarrhea, lacks appetite, right arm pain plus swelling, rash Pertinent negatives: headache, chest pain, shortness of breath, leg swelling, urinary symptoms Present on Admission - Present on Admission Any Indicators Present on Admission: No Review of Systems - Constitutional Constitutional: Chills, Fever, Weakness. absent: Excessive Sweating, Headache, Night Sweats Additional comments: decreased appetite - EENT Eyes: absent: Blurred Vision, Change in Vision Ears: absent: Dizziness Nose/Mouth/Throat: absent: Sore Throat, Tongue Swelling - Cardiovascular Cardiovascular: absent: Chest Pain, Diaphoresis, Dyspnea, Dyspnea on Exertion, Pedal Edema, Rapid Heart Rate - Respiratory Respiratory: absent: Cough, Dyspnea, Wheezing - Gastrointestinal Gastrointestinal: Abdominal Pain, Diarrhea, Nausea, Vomiting. absent: Constipation - Genitourinary Genitourinary: absent: Change in Urinary Stream, Difficulty Urinating, Dysuria - Integumentary Integumentary: Swelling Additional comments: slight right arm swelling above the PICC site with no erythema or discoloration at PICC site - Neurological Neurological: Dizziness, Weakness. absent: Abnormal Gait, Headaches - Psychiatric Psychiatric: Anxiety. absent: Abnormal Sleep Pattern, Depression, Difficulty Concentrating Past Patient History - Infectious Disease Hx of Infectious Diseases: None - Past Medical History & Family History Past Medical History?: Yes - Past Social History Smoking Status: Smoker Currrent Status Unknown - CARDIAC Hx Cardiac Disorders: No - PULMONARY Hx Asthma: Yes Hx Pneumonia: Yes (2016) - NEUROLOGICAL Hx Neurological Disorder: No - HEENT Hx HEENT Problems: No - RENAL Hx Chronic Kidney Disease: No - ENDOCRINE/METABOLIC Hx Endocrine Disorders: No - HEMATOLOGICAL/ONCOLOGICAL Hx Blood Disorders: No - INTEGUMENTARY Hx Dermatological Problems: Yes Other/Comment: HX: MASS RIGHT GROIN - MUSCULOSKELETAL/RHEUMATOLOGICAL Hx Falls: No - GASTROINTESTINAL Hx Gall Bladder Disease: Yes Hx Gastritis: Yes - GENITOURINARY/GYNECOLOGICAL Hx Genitourinary Disorders: Yes Hx Reproductive Disorders: Yes Other/Comment: HX: FIBROID UTERUS - PSYCHIATRIC Hx Anxiety: Yes Hx Substance Use: No - SURGICAL HISTORY Hx Cholecystectomy: Yes Hx Tonsillectomy: Yes - ANESTHESIA Hx Anesthesia: Yes Hx Anesthesia Reactions: No Hx Malignant Hyperthermia: No Meds Allergies/Adverse Reactions: Allergies Allergy/AdvReac Type Severity Reaction Status Date / Time adhesive tape Allergy Severe RASH Verified 05/24/18 11:10 ciprofloxacin [From Cipro] Allergy Intermediate RASH Verified 05/24/18 11:10 ciprofloxacin HCl Allergy Intermediate RASH Verified 05/24/18 11:10 [From Cipro] hydromorphone HCl Allergy Intermediate RASH Verified 05/24/18 11:10 [From Dilaudid] Penicillins Allergy Intermediate RASH Verified 05/24/18 11:10 shrimp Allergy Intermediate RASH Verified 05/24/18 11:10 sulfamethoxazole Allergy Intermediate RASH Verified 05/24/18 11:10 [From Bactrim] trimethoprim [From Bactrim] Allergy Intermediate RASH Verified 05/24/18 11:10 levofloxacin [From Levaquin] Allergy Verified 05/24/18 11:10 doxycycline AdvReac RASH, Verified 05/24/18 11:10 ITCHINESS, THROAT SWELLING Physical Exam - Constitutional Appears: Non-toxic, No Acute Distress - Head Exam Head Exam: NORMAL INSPECTION, NORMOCEPHALIC - Eye Exam Eye Exam: EOMI, Normal appearance. absent: Nystagmus, Scleral icterus - Respiratory Exam Respiratory Exam: Clear to Auscultation Bilateral, NORMAL BREATHING PATTERN. absent: Wheezes, Respiratory Distress - Cardiovascular Exam Cardiovascular Exam: REGULAR RHYTHM, +S1, +S2. absent: Systolic Murmur - GI/Abdominal Exam GI & Abdominal Exam: Normal Bowel Sounds, Soft. absent: Distended, Firm, Guarding, Tenderness - Extremities Exam Extremities exam: Positive for: normal inspection. Negative for: calf tenderness, pedal edema - Neurological Exam Neurological exam: Alert, Oriented x3 - Psychiatric Exam Psychiatric exam: Agitated, Anxious - Skin Skin Exam: Dry, Rash, Warm Results - Vital Signs Recent Vital Signs: Last Vital Signs Temp 98.7 F 04/26/18 18:02 Pulse 85 04/26/18 18:02 Resp 18 04/26/18 18:02 BP 134/89 04/26/18 18:02 Pulse Ox 98 04/26/18 18:02 - Labs Result Diagrams: 04/26/18 15:09 04/26/18 15:09 Labs: Laboratory Results - last 24 hr 04/26/18 04/26/18 04/26/18 14:46 15:09 15:09 WBC 5.3 RBC 3.86 Hgb 12.0 Hct 35.1 MCV 91.0 MCH 31.0 MCHC 34.1 RDW 13.4 Plt Count 355 MPV 7.2 Neut % (Auto) 60.7 Lymph % (Auto) 29.3 [place] % (Auto) 7.6 Eos % (Auto) 1.7 Baso % (Auto) 0.7 Neut # (Auto) 3.2 Lymph # (Auto) 1.6 [place] # (Auto) 0.4 Eos # (Auto) 0.1 Baso # (Auto) 0.0 Sodium 141 Potassium 4.1 Chloride 107 Carbon Dioxide 21 L Anion Gap 17 BUN 6 L Creatinine 0.7 Est GFR ( Amer) > 60 Est GFR (Non-Af Amer) > 60 POC Glucose (mg/dL) 118 H Random Glucose 113 H Calcium 9.9 Magnesium 1.9 Total Bilirubin 0.3 AST 56 H ALT 72 H D Alkaline Phosphatase 87 Troponin I < 0.0120 Total Protein 8.3 Albumin 4.5 Globulin 3.8 Albumin/Globulin Ratio 1.2 TSH 3rd Generation 0.48 Urine Color Urine Clarity Urine pH Ur Specific [place] Urine Protein Urine Glucose (UA) Urine Ketones Urine Blood Urine Nitrate Urine Bilirubin Urine Urobilinogen Ur Leukocyte Esterase Urine WBC (Auto) Urine RBC (Auto) Ur Squamous Epith Cells C. difficile Ag & Toxin 04/26/18 04/26/18 15:30 16:01 WBC RBC Hgb Hct MCV MCH MCHC RDW Plt Count MPV Neut % (Auto) Lymph % (Auto) [place] % (Auto) Eos % (Auto) Baso % (Auto) Neut # (Auto) Lymph # (Auto) [place] # (Auto) Eos # (Auto) Baso # (Auto) Sodium Potassium Chloride Carbon Dioxide Anion Gap BUN Creatinine Est GFR ( Amer) Est GFR (Non-Af Amer) POC Glucose (mg/dL) Random Glucose Calcium Magnesium Total Bilirubin AST ALT Alkaline Phosphatase Troponin I Total Protein Albumin Globulin Albumin/Globulin Ratio TSH 3rd Generation Urine Color Yellow Urine Clarity Clear Urine pH 6.0 Ur Specific [place] 1.014 Urine Protein Negative Urine Glucose (UA) Normal Urine Ketones Trace Urine Blood Negative Urine Nitrate Negative Urine Bilirubin Negative Urine Urobilinogen Normal Ur Leukocyte Esterase Neg Urine WBC (Auto) < 1 Urine RBC (Auto) 1 Ur Squamous Epith Cells 3 C. difficile Ag & Toxin Negative Assessment & Plan - Assessment and Plan (Free Text) Assessment: Bilateral Groin Abscesses Wound change dressing today Will continue outpatient IV antibiotics, linezolid 600mg IV q12 and aztreonam 1g IV q8, with Dr. Gastelum recommendations- ID consulted Surgery- Dr. Siddiqui consulted- recommendations appreciated Afebrile, WBC WNL PICC line placed on 04/23/18 CXR (04/17/18): Negative for active disease Wound culture (04/18/18): + proteus mirabilis Wound culture (04/22/18): e coli, proteus mirabilis ID consulted, Dr. Gastelum; help appreciated Dr. Siddiqui, Gen Surg medical device sales consultant - Initial procedure on 04/18/18 - Repeat debridement on 04/19/18 - Repeat debridement on 04/22/18 Medications: - Linezolid 600mg IV Q12H (Started on 04/17/18) - Aztreonam 1g IV Q8h (started on 04/21/18) Pruritis Benadryl 25 mg po q6 prn Hydroxyzine 50 mg po q8 prn Nauseau Zofran 4 mg po q6 prn Diarrhea -OVA and parasite pending -Stool culture pending -Bentyl 10mg po q6 -C diff negative (prior admission) Abdominal Pain -Oxycodone 5mg PO q6 Trasaminitis AST: 56; ALT: 72 Avoid Hepatotoxic medications (NSAIDS, ASA) Monitor Anxiety - Continue home Xanax 1 mg PO BID Seasonal allergies - Continue home Claritin 10mg PO Daily Constipation - Bentyl 20mg PO TID Prophylaxis - VTE anticoagulant per surgery - Heart Healthy Diet - Protonix 40mg PO daily - Date & Time Date: 04/26/18 Time: 18:51 <Oliva Gtz V - Last Filed: 05/28/18 15:55> Results - Vital Signs Recent Vital Signs: Last Vital Signs Temp 98.2 F 05/01/18 08:00 Pulse 75 05/01/18 08:00 Resp 20 05/01/18 08:00 BP 98/67 L 05/01/18 08:00 Pulse Ox 99 05/01/18 08:00 - Labs Result Diagrams: 04/30/18 11:54 04/30/18 11:54 Attending/Attestation - Attestation I have personally seen and examined this patient.: Yes I have fully participated in the care of the patient.: Yes I have reviewed all pertinent clinical information: Yes Notes (Text): This is late computer entry for 04/26/18. Patient seen, examined, and case discussed with director medical affairs. Discussed admitting orders at time of admission. General surgery, infectious disease on board. patient to finish IV abx that was discharged on yesterday. Patient has PICC line noted from prior admission to finish IV abx at home.
[2018-04-26] MEDS ORDERED: Oxycodone/Acetaminophen 5/325 mg Tab PO PRN (18:30)
[2018-04-26] MEDS: Aztreonam 1 GM in Sodium Chloride 0.9% 100 ML IVPB SCH (19:56)
[2018-04-26 22:48] LABS: BARBITURATES, UR NEGATIVE (NEGATIVE); OPIATES, UR NEGATIVE (NEGATIVE); PHENCYCLIDINE, UR NEGATIVE (NEGATIVE)
[2018-04-26 22:56] LABS: BENZODIAZEPINES, UR POSITIVE (NEGATIVE)
[2018-04-27] MEDS ORDERED: Albuterol-Ipratrop 3 mg / 0.5 (3 ml) UD INH SCH
[2018-04-27] MEDS: Aztreonam 1 GM in Sodium Chloride 0.9% 100 ML IVPB SCH ×3 (03:39→18:00)
[2018-04-27 07:28] LABS: BASO % 0.5 % (0.0-2.0); EOS # 0.2 K/uL (0.0-0.7); HEMOGLOBIN 11.2 g/dL (11.0-16.0); LYMPH # 1.8 K/uL (1.0-4.3); LYMPH % 36.6 % (20.0-40.0); MEAN CELL VOLUME 90.1 fL (81.0-99.0); MEAN CORPUSCULAR HEMOGLOBIN 30.7 pg (27.0-31.0); MEAN CORPUSCULAR HGB CONC 34.1 g/dL (33.0-37.0); MEAN PLATELET VOLUME 7.2 fL (7.2-11.7); MONO # 0.6 K/uL (0.0-0.8); MONO % 11.8 % (0.0-10.0); NEUT # 2.3 K/uL (1.8-7.0); NEUT % 46.1 % (50.0-75.0); RBC 3.65 Mil/uL (3.80-5.20); RED CELL DISTRIBUTION WIDTH 13.4 % (11.5-14.5)
[2018-04-27 07:52] LABS: ALB/GLOB RATIO 1.2 (1.0-2.1); ALBUMIN 4.1 g/dL (3.5-5.0); ALT/SGPT 98 U/L (9-52); AST/SGOT 91 U/L (14-36); BLOOD UREA NITROGEN 8 mg/dL (7-17); CALCIUM 9.3 mg/dl (8.6-10.4); GFR NON-AFRICAN AMERICAN > 60
[2018-04-27] MEDS: Albuterol-Ipratrop 3 mg / 0.5 (3 ml) UD INH SCH ×3 (08:29→19:20)
[2018-04-27] MEDS: Pantoprazole 40 mg EC Tab PO SCH (09:42)
[2018-04-27] MEDS ORDERED: Pantoprazole 20 mg EC Tab PO SCH (10:00)
[2018-04-27] MEDS ORDERED: Aluminum Hydroxide/Magnesium Hydroxide Susp (30 mL) PO ONE (11:44)
[2018-04-27] MEDS: oxyCODONE 5 mg Immediate Release Tab PO PRN ×2 (12:15→21:45)
[2018-04-27] MEDS: Linezolid 600 mg in D5W 300 ml 600 MG/300 ML BAG IVPB SCH (14:00)
--- NOTE | 2018-04-27 15:28 | CP.PCM.PN ---
<Tanya Mercer - Last Filed: 04/27/18 16:20> Subjective - Date & Time of Evaluation Date of Evaluation: 04/27/18 Time of Evaluation: 07:00 - Subjective Subjective: PGY2- Progress Note for Dr. Gtz Patient seen and examined at bedside. Patient in no acute distress. Patient says she is having less episodes of diarrhea today and has had a total of three episodes since last night. Patient is still having nausea and has had 2 episodes of vomiting. Patient does not have an appetite and complains of generalized abdominal pain. Patient says her right arm feels better and feels less hot to her. Patient denies any chest pain or shortness of breath. Objective - Vital Signs/Intake and Output Vital Signs (last 24 hours): Temp Pulse Resp BP Pulse Ox 98.3 F 79 20 122/76 98 04/27/18 08:31 04/27/18 08:31 04/27/18 08:31 04/27/18 08:31 04/27/18 13:15 Intake and Output: 04/27/18 04/27/18 06:59 18:59 Intake Total 300 170 Balance 300 170 - Medications Medications: Current Medications Albuterol/Ipratropium (Duoneb 3 Mg/0.5 Mg (3 Ml) Ud) 3 ml INH RQ6 ROGERIO Last Admin: 04/27/18 13:10 Dose: Not Given Dicyclomine HCl (Bentyl) 10 mg PO Q6 ROGERIO Last Admin: 04/27/18 12:17 Dose: Not Given Diphenhydramine HCl (Benadryl) 25 mg PO Q6 PRN PRN Reason: Itching / Pruritus Last Admin: 04/27/18 03:49 Dose: 25 mg Hydroxyzine HCl (Atarax) 50 mg PO Q8 PRN PRN Reason: Allergy symptoms Last Admin: 04/27/18 08:20 Dose: 50 mg Aztreonam 1 gm/ Sodium (Chloride) 100 mls @ 200 mls/hr IVPB Q8H ROGERIO PRN Reason: Protocol Last Admin: 04/27/18 11:30 Dose: 200 mls/hr Linezolid (Zyvox 600mg/300ml D5w) 600 mg in 300 mls @ 200 mls/hr IVPB Q12H ROGERIO PRN Reason: Protocol Last Admin: 04/27/18 14:00 Dose: 200 mls/hr Loratadine (Claritin) 10 mg PO DAILY [facility] Last Admin: 04/27/18 09:42 Dose: 10 mg Ondansetron HCl (Zofran Odt) 4 mg PO Q6H PRN PRN Reason: Nausea/Vomiting Last Admin: 04/27/18 12:13 Dose: 4 mg Oxycodone HCl (Oxycodone Immediate Release Tab) 5 mg PO Q6 PRN PRN Reason: Pain, moderate (4-7) Last Admin: 04/27/18 12:15 Dose: 5 mg Pantoprazole Sodium (Protonix Ec Tab) 40 mg PO DAILY [facility] Last Admin: 04/27/18 09:42 Dose: 40 mg Pneumococcal Polyvalent Vaccine (Pneumovax 23 Vaccine) 0.5 ml IM .ONCE ONE Stop: 04/28/18 10:01 - Labs Labs: 04/27/18 07:20 04/27/18 07:20 - Additional Findings Additional findings: - Constitutional Appears: Non-toxic, No Acute Distress - Head Exam Head Exam: NORMAL INSPECTION, NORMOCEPHALIC - Eye Exam Eye Exam: EOMI, Normal appearance. absent: Nystagmus, Scleral icterus - Respiratory Exam Respiratory Exam: Clear to Auscultation Bilateral, NORMAL BREATHING PATTERN. absent: Wheezes, Respiratory Distress - Cardiovascular Exam Cardiovascular Exam: REGULAR RHYTHM, +S1, +S2. absent: Systolic Murmur - GI/Abdominal Exam GI & Abdominal Exam: Normal Bowel Sounds, Soft. absent: Distended, Firm, Guarding, Tenderness - Extremities Exam Extremities exam: Positive for: normal inspection. Negative for: calf tenderness, pedal edema - Neurological Exam Neurological exam: Alert, Oriented x3 - Psychiatric Exam Psychiatric exam: Agitated, Anxious - Skin Skin Exam: Dry, Rash, Warm Assessment and Plan - Assessment and Plan (Free Text) Assessment: Bilateral Groin Abscesses Wound dressing change today Will continue outpatient IV antibiotics, linezolid 600mg IV q12 and aztreonam 1g IV q8, as per Dr. Gastelum's recommendations Surgery- Dr. Siddiqui consulted- recommendations appreciated Afebrile, WBC WNL PICC line placed on 04/23/18 CXR (04/17/18): Negative for active disease Wound culture (04/18/18): + proteus mirabilis Wound culture (04/22/18): e coli, proteus mirabilis surgical procedures with Dr. Siddiqui - Initial procedure on 04/18/18 - Repeat debridement on 04/19/18 - Repeat debridement on 04/22/18 Diarrhea -OVA and parasite pending -Stool culture pending -Bentyl 10mg po q6 -C diff negative (04/24 and 04/26) Glossitis -f/u B12 and folate Pruritus Benadryl 25 mg po q6 prn Hydroxyzine 50 mg po q8 prn Nausea -bland diet Zofran 4 mg po q6 prn Abdominal and Groin Pain -Oxycodone 5mg PO q6 Trasaminitis increasing AST: 91; ALT: 98 Avoid Hepatotoxic medications (NSAIDS, ASA) Monitor Anxiety - Continue home Xanax 1 mg PO BID Seasonal allergies - Continue home Claritin 10mg PO Daily Prophylaxis - VTE anticoagulant per surgery - Heart Healthy Diet - Protonix 40mg PO daily -PT and OT <Oliva Gtz V - Last Filed: 05/28/18 15:57> Objective - Vital Signs/Intake and Output Vital Signs (last 24 hours): Temp Pulse Resp BP Pulse Ox 98.2 F 75 20 98/67 L 99 05/01/18 08:00 05/01/18 08:00 05/01/18 08:00 05/01/18 08:00 05/01/18 08:00 - Labs Labs: 04/30/18 11:54 04/30/18 11:54 Attending/Attestation - Attestation I have personally seen and examined this patient.: Yes I have fully participated in the care of the patient.: Yes I have reviewed all pertinent clinical information, including history, physical exam and plan: Yes Notes (Text): This is late computer entry for 04/27/18. Patient seen, examined, and case discussed with day-time resident. Agree with the assessment and plan as written by the resident. patient to continue IV abx as per ID. Monitor diarrhea movements. Patient pending evaluation by surgery. Patient's liver function tests uptrending.
[2018-04-27 18:48] LABS: FOLATE 8.6 ng/mL
--- NOTE | 2018-04-27 18:58 | CP.PCM.CON ---
History of Present Illness - History of Present Illness History of Present Illness: 37 y/o female presents to ED with complaints of weakness diarrhea fever and nausea Hx of multiple admissions - recently had groin wounds drained and sent home on IV antibiotics zyvox/azrtreonam for 7 days Has multiple allergies - Medical History PMH: Anxiety, Asthma, Gastritis, Gall Bladder Disease, Pneumonia ([id number] ) Surgical History: Cholecystectomy, Endoscopy, Tonsillectomy, ( Myomectomy) - [facility] Procedures DRAINAGE OF LEFT INGUINAL REGION, OPEN APPROACH (01/07/18) DRAINAGE OF PERINEUM SKIN, EXTERNAL APPROACH (04/19/16) DRAINAGE OF RIGHT INGUINAL REGION, OPEN APPROACH (01/07/18) EXCISION OF UTERUS, OPEN APPROACH (04/19/16) Review of Systems - Review of Systems All systems: reviewed and no additional remarkable complaints except - Constitutional Constitutional: As Per HPI - EENT Eyes: absent: As Per HPI, Blind Spots, Blurred Vision, Change in Vision, Decreased Night Vision, Diplopia, Discharge, Dry Eye, Exophthalmos, Floaters, Irritation, Itchy Eyes, Loss of Peripheral Vision, Pain, Photophobia, Requires Corrective Lenses, Sees Flashes, Spots in Vision, Tunnel Vision, Other Visual Disturbances, Loss of Vision, Other Ears: absent: As Per HPI, Decreased Hearing, Ear Discharge, Ear Pain, Tinnitus, Abnormal Hearing, Disequilibrium, Dizziness, Other Nose/Mouth/Throat: absent: As Per HPI, Epistaxis, Nasal Congestion, Nasal Discharge, Nasal Obstruction, Nasal Trauma, Nose Pain, Post Nasal Drip, Sinus Pain, Sinus Pressure, Bleeding Gums, Change in Voice, Dental Pain, Dry Mouth, Dysphagia, Halitosis, Hoarsness, Lip Swelling, Mouth Lesions, Mouth Pain, Odynophagia, Sore Throat, Throat Swelling, Tongue Swelling, Facial Pain, Neck Pain, Neck Mass, Other - Breasts Breasts: absent: As Per HPI, Change in Shape, Mass, Pain, Nipple Discharge, Nipple Inversion, Skin Changes, Swelling, Other - Cardiovascular Cardiovascular: absent: As Per HPI, Acrocyanosis, Chest Pain, Chest Pain at Rest , Chest Pain with Activity, Claudication, Diaphoresis, Dyspnea, Dyspnea on Exertion, Edema, Irregular Heart Rhythm, Pain Radiating to Arm/Neck/Jaw, Leg Edema, Leg Ulcers, Lightheadedness, Orthopnea, Palpitations, Paroxysmal Nocturnal Dyspnea, Pedal Edema, Radiating Pain, Rapid Heart Rate, Slow Heart Rate, Syncope, Other - Respiratory Respiratory: absent: As Per HPI, Cough, Dyspnea, Hemoptysis, Dyspnea on Exertion , Wheezing, Snoring, Stridor, Pain on Inspiration, Chest Congestion, Excessive Mucous Production, Change in Mucous Color, Pain with Coughing, Other - Gastrointestinal Gastrointestinal: absent: As Per HPI, Abdominal Pain, Belching, Bloating, Change in Bowel Habits, Change in Stool Character, Coffee Ground Emesis, Constipation, Cramping, Diarrhea, Dyspepsia, Dysphagia, Early Satiety, Excessive Flatus, Fecal Incontinence, Heartburn, Hematemesis, Hematochezia, Loose Stools, Melena, Nausea, Odynophagia, Temesmus, Vomiting, Other - Genitourinary Genitourinary: absent: As Per HPI, Change in Urinary Stream, Difficulty Urinating, Dysuria, Flank Pain, Hematuria, Pyuria, Nocturia, Urinary Incontinence, Urinary Frequency, Urinary Hesitance, Urinary Urgency, Voiding Freq/Small Amts, Freq UTI, Hx Renal/Bladder Calculi, Hx /Renal Surgery, Bladder Distension, Other - Reproductive: Female Reproductive:Female: absent: As Per HPI, Amenorrhea, Amenorrhea/ Control, Currently Menstual, Cycle <21 Days, Cycle >35 Days, Cycle Variable, Menses 1-7 Days, Menses >/= 8 Days, Menses Variable, Cycle > 4 Weeks Between, No Menses for 6 Months, Heavy Menses, Light Menses, Normal Menses, Spotting Between Cycles , S/P Hysterectomy, Menopausal, Post Menopausal, Premenarche, Abnormal Vaginal Bleeding, Dysmenorrhea, Dyspareunia, Genital Lesions, Genital Pruritis, Pelvic Pain, Prolapse Symptoms, Sexual Dysfunction, Vaginal Discharge, Vaginal Dryness , Vaginal Odor, Vaginal Pruritis, Other - Menstruation Menstruation: absent: As Per HPI, Amenorrhea, Amenorrhea/ Control, Currently Menstual, Cycle <21 Days, Cycle >35 Days, Cycle Variable, Menses 1-7 Days, Menses >/= 8 Days, Menses Variable, Cycle > 4 Weeks Between, No Menses for 6 Months, Heavy Menses, Light Menses, Normal Menses, Spotting Between Cycles , S/P Hysterectomy, Menopausal, Post Menopausal, Premenarche, Abnormal Vaginal Bleeding, Dysmenorrhea, Other - Musculoskeletal Musculoskeletal: absent: As Per HPI, Abnormal Gait, Arthralgias, Atrophy, Back Pain, Deformity, Joint Swelling, Limited Range of Motion, Loss of Height, Muscle Cramps, Muscle Weakness, Myalgias, Neck Pain, Numbness, Radiating Pain into Limb, Stiffness, Tingling, Other - Integumentary Integumentary: As Per HPI, Skin Pain, Wounds - Neurological Neurological: absent: As Per HPI, Abnormal Gait, Abnormal Hearing, Abnormal Movements, Abnormal Speech, Behavioral Changes, Burning Sensations, Confusion, Convulsions, Disequilibrium, Dizziness, Numbness, Focal Weakness, Frequent Falls , Headaches, Lack of Coordination, Loss of Vision, Memory Loss, Paresthesias, Radicular Pain, Restless Legs, Sensory Deficit, Syncope, Tingling, Tremor, Vertigo, Weakness, Other Visual Disturbances, Other - Psychiatric Psychiatric: absent: As Per HPI, Abnormal Sleep Pattern, Anhedonia, Anxiety, Auditory Hallucinations, Behavioral Changes, Change in Appetite, Change in Libido, Confusion, Depression, Difficulty Concentrating, Hallucinations, Homicidal Ideation, Hopelessness, Irritability, Memory Loss, Mood Swings, Panic Attacks, Paranoia, Suicidal Ideation, Visual Hallucinations, Tactile Hallucinations, Other - Endocrine Endocrine: absent: As Per HPI, Change in Body Appearance, Change in Libido, Cold Intolorance, Deepening of Voice, Excessive Sweating, Fatigue, Flushing, Heat Intolorance, Increase in Ring/Shoe/Hat Size, Palpitations, Polydipsia, Polyphagia, Polyuria, Other - Hematologic/Lymphatic Hematologic: absent: As Per HPI, Easy Bleeding, Easy Bruising, Lymphadenopathy, Other Past Patient History - Infectious Disease Hx of Infectious Diseases: None - Past Medical History & Family History Past Medical History?: Yes - Past Social History Smoking Status: Smoker Currrent Status Unknown - CARDIAC Hx Cardiac Disorders: No - PULMONARY Hx Asthma: Yes Hx Pneumonia: Yes (2016) - NEUROLOGICAL Hx Neurological Disorder: No - HEENT Hx HEENT Problems: No - RENAL Hx Chronic Kidney Disease: No - ENDOCRINE/METABOLIC Hx Endocrine Disorders: No - HEMATOLOGICAL/ONCOLOGICAL Hx Blood Disorders: No - INTEGUMENTARY Hx Dermatological Problems: Yes Other/Comment: HX: MASS RIGHT GROIN - MUSCULOSKELETAL/RHEUMATOLOGICAL Hx Falls: No - GASTROINTESTINAL Hx Gall Bladder Disease: Yes Hx Gastritis: Yes - GENITOURINARY/GYNECOLOGICAL Hx Genitourinary Disorders: Yes Hx Reproductive Disorders: Yes Other/Comment: HX: FIBROID UTERUS - PSYCHIATRIC Hx Anxiety: Yes Hx Substance Use: No - SURGICAL HISTORY Hx Cholecystectomy: Yes Hx Tonsillectomy: Yes - ANESTHESIA Hx Anesthesia: Yes Hx Anesthesia Reactions: No Hx Malignant Hyperthermia: No Meds Allergies/Adverse Reactions: Allergies Allergy/AdvReac Type Severity Reaction Status Date / Time adhesive tape Allergy Severe RASH Verified 04/26/18 14:27 ciprofloxacin [From Cipro] Allergy Intermediate RASH Verified 04/26/18 14:27 ciprofloxacin HCl Allergy Intermediate RASH Verified 04/26/18 14:27 [From Cipro] hydromorphone HCl Allergy Intermediate RASH Verified 04/26/18 14:27 [From Dilaudid] Penicillins Allergy Intermediate RASH Verified 04/26/18 14:27 shrimp Allergy Intermediate RASH Verified 04/26/18 14:27 sulfamethoxazole Allergy Intermediate RASH Verified 04/26/18 14:27 [From Bactrim] trimethoprim [From Bactrim] Allergy Intermediate RASH Verified 04/26/18 14:27 doxycycline AdvReac RASH, Verified 04/26/18 14:27 ITCHINESS, THROAT SWELLING - Medications Medications: Current Medications Albuterol/Ipratropium (Duoneb 3 Mg/0.5 Mg (3 Ml) Ud) 3 ml INH RQ6 [facility] Last Admin: 04/27/18 13:10 Dose: Not Given Dicyclomine HCl (Bentyl) 10 mg PO Q6 [facility] Last Admin: 04/27/18 17:55 Dose: 10 mg Diphenhydramine HCl (Benadryl) 25 mg PO Q6 PRN PRN Reason: Itching / Pruritus Last Admin: 04/27/18 03:49 Dose: 25 mg Hydroxyzine HCl (Atarax) 50 mg PO Q8 PRN PRN Reason: Allergy symptoms Last Admin: 04/27/18 17:55 Dose: 50 mg Aztreonam 1 gm/ Sodium (Chloride) 100 mls @ 200 mls/hr IVPB Q8H [facility] PRN Reason: Protocol Last Admin: 04/27/18 18:00 Dose: 200 mls/hr Linezolid (Zyvox 600mg/300ml D5w) 600 mg in 300 mls @ 200 mls/hr IVPB Q12H [facility] PRN Reason: Protocol Last Admin: 04/27/18 14:00 Dose: 200 mls/hr Loratadine (Claritin) 10 mg PO DAILY [facility] Last Admin: 04/27/18 09:42 Dose: 10 mg Ondansetron HCl (Zofran Odt) 4 mg PO Q6H PRN PRN Reason: Nausea/Vomiting Last Admin: 04/27/18 12:13 Dose: 4 mg Oxycodone HCl (Oxycodone Immediate Release Tab) 5 mg PO Q6 PRN PRN Reason: Pain, moderate (4-7) Last Admin: 04/27/18 12:15 Dose: 5 mg Pantoprazole Sodium (Protonix Ec Tab) 40 mg PO DAILY [facility] Last Admin: 04/27/18 09:42 Dose: 40 mg Pneumococcal Polyvalent Vaccine (Pneumovax 23 Vaccine) 0.5 ml IM .ONCE ONE Stop: 04/28/18 10:01 Physical Exam - Constitutional Appears: No Acute Distress, Chronically Ill - Head Exam Head Exam: ATRAUMATIC, NORMOCEPHALIC - Eye Exam Eye Exam: absent: Scleral icterus - ENT Exam ENT Exam: Mucous Membranes Dry, Normal External Ear Exam - Neck Exam Neck exam: Negative for: Lymphadenopathy - Respiratory Exam Respiratory Exam: Decreased Breath Sounds - Cardiovascular Exam Cardiovascular Exam: REGULAR RHYTHM - GI/Abdominal Exam GI & Abdominal Exam: Diminished Bowel Sounds - Rectal Exam Rectal Exam: Deferred - Exam Exam: NORMAL INSPECTION - Extremities Exam Extremities exam: Negative for: pedal edema - Back Exam Back exam: absent: CVA tenderness (L), CVA tenderness (R) - Neurological Exam Neurological exam: Alert, CN II-XII Intact, Oriented x3, Reflexes Normal - Psychiatric Exam Psychiatric exam: Normal Mood - Skin Skin Exam: Dry Results - Vital Signs Recent Vital Signs: Last Vital Signs Temp 98.9 F 04/27/18 16:00 Pulse 72 04/27/18 16:00 Resp 20 04/27/18 16:00 BP 120/73 04/27/18 16:00 Pulse Ox 99 04/27/18 16:00 - Labs Result Diagrams: 04/27/18 07:20 04/27/18 07:20 Labs: Laboratory Results - last 24 hr 04/26/18 04/26/18 04/27/18 22:29 Unknown 07:20 WBC 5.0 RBC 3.65 L Hgb 11.2 Hct 32.9 L MCV 90.1 MCH 30.7 MCHC 34.1 RDW 13.4 Plt Count 325 MPV 7.2 Neut % (Auto) 46.1 L Lymph % (Auto) 36.6 [place] % (Auto) 11.8 H Eos % (Auto) 5.0 H Baso % (Auto) 0.5 Neut # (Auto) 2.3 Lymph # (Auto) 1.8 [place] # (Auto) 0.6 Eos # (Auto) 0.2 Baso # (Auto) 0.0 Sodium Potassium Chloride Carbon Dioxide Anion Gap BUN Creatinine Est GFR ( Amer) Est GFR (Non-Af Amer) Random Glucose Calcium Phosphorus Magnesium Total Bilirubin AST ALT Alkaline Phosphatase Total Protein Albumin Globulin Albumin/Globulin Ratio Vitamin B12 Folate Procalcitonin < 0.05 L Urine Opiates Screen Negative Urine Methadone Screen Negative Ur Barbiturates Screen Negative Ur Phencyclidine Scrn Negative Ur Amphetamines Screen Negative U Benzodiazepines Scrn Positive U Oth Cocaine Metabols Negative U Cannabinoids Screen Positive H 04/27/18 04/27/18 07:20 17:19 WBC RBC Hgb Hct MCV MCH MCHC RDW Plt Count MPV Neut % (Auto) Lymph % (Auto) [place] % (Auto) Eos % (Auto) Baso % (Auto) Neut # (Auto) Lymph # (Auto) [place] # (Auto) Eos # (Auto) Baso # (Auto) Sodium 140 Potassium 3.8 Chloride 106 Carbon Dioxide 20 L Anion Gap 17 BUN 8 Creatinine 0.7 Est GFR ( Amer) > 60 Est GFR (Non-Af Amer) > 60 Random Glucose 107 H Calcium 9.3 Phosphorus 3.9 Magnesium 1.8 Total Bilirubin 0.4 AST 91 H D ALT 98 H D Alkaline Phosphatase 78 Total Protein 7.5 Albumin 4.1 Globulin 3.4 Albumin/Globulin Ratio 1.2 Vitamin B12 354 Folate 8.6 Procalcitonin Urine Opiates Screen Urine Methadone Screen Ur Barbiturates Screen Ur Phencyclidine Scrn Ur Amphetamines Screen U Benzodiazepines Scrn U Oth Cocaine Metabols U Cannabinoids Screen Assessment & Plan (1) Weakness Status: Acute (2) Abscess of groin, left Status: Acute (3) Abscess of groin, right Status: Acute - Assessment and Plan (Free Text) Assessment: s/p I and D to complete course of IV rx then cont wound care follow up with Dr Siddiqui
[2018-04-27] MEDS: Aluminum Hydroxide/Magnesium Hydroxide Susp (30 mL) PO SCH (21:45)
[2018-04-28] MEDS: Linezolid 600 mg in D5W 300 ml 600 MG/300 ML BAG IVPB SCH ×2 (00:25→14:00)
[2018-04-28] MEDS: Aluminum Hydroxide/Magnesium Hydroxide Susp (30 mL) PO SCH ×3 (00:33→11:41)
[2018-04-28] MEDS: Albuterol-Ipratrop 3 mg / 0.5 (3 ml) UD INH SCH ×4 (01:51→21:17)
[2018-04-28] MEDS: Aztreonam 1 GM in Sodium Chloride 0.9% 100 ML IVPB SCH ×3 (03:25→18:00)
[2018-04-28] MEDS: oxyCODONE 5 mg Immediate Release Tab PO PRN ×3 (03:25→17:50)
[2018-04-28 08:12] LABS: BASO % 0.7 % (0.0-2.0); EOS # 0.3 K/uL (0.0-0.7); EOS % 4.3 % (0.0-4.0); HEMOGLOBIN 11.2 g/dL (11.0-16.0); LYMPH # 2.4 K/uL (1.0-4.3); MEAN CELL VOLUME 90.6 fL (81.0-99.0); MEAN CORPUSCULAR HEMOGLOBIN 30.8 pg (27.0-31.0); MEAN PLATELET VOLUME 7.1 fL (7.2-11.7); MONO # 0.8 K/uL (0.0-0.8); RBC 3.62 Mil/uL (3.80-5.20); RED CELL DISTRIBUTION WIDTH 13.4 % (11.5-14.5); WHITE BLOOD COUNT 6.5 K/uL (4.8-10.8)
[2018-04-28 08:47] LABS: ALB/GLOB RATIO 1.2 (1.0-2.1); ALT/SGPT 94 U/L (9-52); AST/SGOT 56 U/L (14-36); BLOOD UREA NITROGEN 14 mg/dL (7-17); CALCIUM 8.9 mg/dl (8.6-10.4); GFR NON-AFRICAN AMERICAN > 60
[2018-04-28 09:10] LABS: HEPATITIS B SURFACE AG Negative (NEGATIVE)
[2018-04-28 09:16] LABS: HEPATITIS A IGM NEGATIVE (NEGATIVE); HEPATITIS B CORE AB NEGATIVE (NEGATIVE)
[2018-04-28] MEDS: Pantoprazole 40 mg EC Tab PO SCH (09:35)
[2018-04-28] MEDS ORDERED: Pneumococcal 23-Valent Vaccine IM ONE (10:00)
[2018-04-28 11:26] LABS: HEPATITIS C ANTIBODY REACTIVE (NEGATIVE)
--- NOTE | 2018-04-28 16:03 | CP.PCM.PN ---
<Tanya Mercer - Last Filed: 04/28/18 16:14> Subjective - Date & Time of Evaluation Date of Evaluation: 04/28/18 Time of Evaluation: 08:00 - Subjective Subjective: PGY2- Progress for Dr. Gtz Patient seen and examined at bedside. Patient says her left arm is no longer bothering her. Patient says she had 4 episodes of watery yellow/ green diarrhea. Patient still having generalized abdominal pain. Patient is able to eat minimal amounts of food. Patient denies any chest pain, shortness of breath , nausea, or vomiting. Objective - Vital Signs/Intake and Output Vital Signs (last 24 hours): Temp Pulse Resp BP Pulse Ox 98.1 F 53 L 20 103/68 98 04/28/18 08:00 04/28/18 08:00 04/28/18 08:00 04/28/18 08:00 04/28/18 11:00 - Medications Medications: Current Medications Al Hydrox/Mg Hydrox/Simethicone (Maalox 30 Ml) 30 ml PO Q6 [facility] Last Admin: 04/28/18 11:41 Dose: 30 ml Albuterol/Ipratropium (Duoneb 3 Mg/0.5 Mg (3 Ml) Ud) 3 ml INH RQ6 [facility] Last Admin: 04/28/18 13:17 Dose: Not Given Alprazolam (Xanax) 1 mg PO BID PRN PRN Reason: Anxiety Dicyclomine HCl (Bentyl) 10 mg PO Q6 [facility] Last Admin: 04/28/18 12:09 Dose: Not Given Diphenhydramine HCl (Benadryl) 25 mg PO Q6 PRN PRN Reason: Itching / Pruritus Last Admin: 04/28/18 00:35 Dose: 25 mg Hydroxyzine HCl (Atarax) 50 mg PO Q8 PRN PRN Reason: Allergy symptoms Last Admin: 04/27/18 17:55 Dose: 50 mg Aztreonam 1 gm/ Sodium (Chloride) 100 mls @ 200 mls/hr IVPB Q8H [facility] PRN Reason: Protocol Last Admin: 04/28/18 11:42 Dose: 200 mls/hr Linezolid (Zyvox 600mg/300ml D5w) 600 mg in 300 mls @ 200 mls/hr IVPB Q12H [facility] PRN Reason: Protocol Last Admin: 04/28/18 14:00 Dose: 200 mls/hr Loratadine (Claritin) 10 mg PO DAILY [facility] Last Admin: 04/28/18 09:35 Dose: 10 mg Ondansetron HCl (Zofran Odt) 4 mg PO Q6H PRN PRN Reason: Nausea/Vomiting Last Admin: 04/28/18 11:42 Dose: 4 mg Oxycodone HCl (Oxycodone Immediate Release Tab) 5 mg PO Q6 PRN PRN Reason: Pain, moderate (4-7) Last Admin: 04/28/18 11:41 Dose: 5 mg Pantoprazole Sodium (Protonix Ec Tab) 40 mg PO DAILY [facility] Last Admin: 04/28/18 09:35 Dose: 40 mg - Labs Labs: 04/28/18 08:01 04/28/18 08:01 - Constitutional Appears: Non-toxic, No Acute Distress - Head Exam Head Exam: ATRAUMATIC, NORMAL INSPECTION, NORMOCEPHALIC - Eye Exam Eye Exam: EOMI, Normal appearance - ENT Exam ENT Exam: Mucous Membranes Moist - Respiratory Exam Respiratory Exam: Clear to Ausculation Bilateral, NORMAL BREATHING PATTERN - Cardiovascular Exam Cardiovascular Exam: REGULAR RHYTHM, RRR, +S1, +S2 - GI/Abdominal Exam GI & Abdominal Exam: Soft, Tenderness, Normal Bowel Sounds - Exam Additional comments: inguinal abscesses healing well with c/d/i packing and dressings - Extremities Exam Extremities Exam: Full ROM, Normal Inspection. absent: Pedal Edema, Tenderness - Neurological Exam Neurological Exam: Alert, Awake, Oriented x3 - Psychiatric Exam Psychiatric exam: Normal Affect, Normal Mood - Skin Skin Exam: Intact, Normal Color, Warm Assessment and Plan - Assessment and Plan (Free Text) Assessment: Bilateral Groin Abscesses Wound dressing change today stop IV antibiotics tonight 04/28/18, linezolid 600mg IV q12 and aztreonam 1g IV q8, as per Dr. Gastelum's recommendations Surgery- Dr. Siddiqui consulted- recommendations appreciated Afebrile, WBC WNL PICC line placed on 04/23/18 CXR (04/17/18): Negative for active disease Wound culture (04/18/18): + proteus mirabilis Wound culture (04/22/18): e coli, proteus mirabilis surgical procedures with Dr. Siddiqui - Initial procedure on 04/18/18 - Repeat debridement on 04/19/18 - Repeat debridement on 04/22/18 Diarrhea -OVA and parasite pending -Stool culture pending -Bentyl 10mg po q6 -C diff negative (04/24 and 04/26) Reactive Hep C Antibody f/u abdominal u/s f/u HCV genotype and viral load Glossitis -B12 354 -folate 8.6 Pruritus Benadryl 25 mg po q6 prn Hydroxyzine 50 mg po q8 prn Nausea -bland diet Zofran 4 mg po q6 prn Abdominal and Groin Pain -Oxycodone 5mg PO q6 Trasaminitis decreasing AST: 56; ALT: 94 Hep C antibody- reactive Avoid Hepatotoxic medications (NSAIDS, ASA) Monitor Anxiety - Continue home Xanax 1 mg PO BID Seasonal allergies - Continue home Claritin 10mg PO Daily Prophylaxis - VTE anticoagulant per surgery - Heart Healthy Diet - Protonix 40mg PO daily - PT and OT <Oliva Gtz V - Last Filed: 05/28/18 16:09> Objective - Vital Signs/Intake and Output Vital Signs (last 24 hours): Temp Pulse Resp BP Pulse Ox 98.2 F 75 20 98/67 L 99 05/01/18 08:00 05/01/18 08:00 05/01/18 08:00 05/01/18 08:00 05/01/18 08:00 - Labs Labs: 04/30/18 11:54 04/30/18 11:54 Attending/Attestation - Attestation I have personally seen and examined this patient.: Yes I have fully participated in the care of the patient.: Yes I have reviewed all pertinent clinical information, including history, physical exam and plan: Yes Notes (Text): this is late computer entry for 04/28/18. Patient seen, examined, and case discussed with medical program specialist. Patient to finish IV abx per ID. Patient is pending general surgery. Had a long discussion with patient in regards to hepatitis C reactive AB, she denies prior history; I did indicate to her additional blood tests would need to be done; can be done as outpatient to confirm, and if she does have hepatitis C, depending on type there are available treatments. patient advised safe sex practices and is aware can be exchanged through blood/body fluids. Monitor diarrhea; may need GI consult if warranted
--- NOTE | 2018-04-28 16:27 | US ---
Date of service: 04/28/2018 HISTORY: hep c reactive, abdominal pain COMPARISON: None. TECHNIQUE: Sonographic evaluation of the abdomen. FINDINGS: LIVER: Measures 15.0 cm. Normal echogenicity of the liver parenchyma. No mass. No intrahepatic bile duct dilatation. GALLBLADDER: Prior cholecystectomy. COMMON BILE DUCT: Measures 3.6 mm. No stones. No dilatation. PANCREAS: Unremarkable as visualized. No mass. No ductal dilatation. RIGHT KIDNEY: Measures 10.9cm. Normal echogenicity. No calculus, mass, or hydronephrosis. LEFT KIDNEY: Measures 10.7cm. Normal echogenicity. No calculus, mass, or hydronephrosis. SPLEEN: Normal in size and contour. No mass. AORTA: No aneurysmal dilatation. IVC: Unremarkable. OTHER FINDINGS: None. IMPRESSION: Unremarkable abdominal sonogram.
[2018-04-28] MEDS ORDERED: Aluminum Hydroxide/Magnesium Hydroxide Susp (30 mL) PO PRN (16:32)
[2018-04-29] MEDS: oxyCODONE 5 mg Immediate Release Tab PO PRN ×3 (02:34→23:37)
[2018-04-29] MEDS: Albuterol-Ipratrop 3 mg / 0.5 (3 ml) UD INH SCH ×4 (02:57→19:50)
[2018-04-29 08:14] LABS: BASO % 0.7 % (0.0-2.0); EOS # 0.3 K/uL (0.0-0.7); EOS % 4.5 % (0.0-4.0); HEMOGLOBIN 10.6 g/dL (11.0-16.0); LYMPH # 2.3 K/uL (1.0-4.3); LYMPH % 37.4 % (20.0-40.0); MEAN CELL VOLUME 90.9 fL (81.0-99.0); MEAN CORPUSCULAR HEMOGLOBIN 31.7 pg (27.0-31.0); MEAN CORPUSCULAR HGB CONC 34.9 g/dL (33.0-37.0); MEAN PLATELET VOLUME 7.3 fL (7.2-11.7); MONO # 0.7 K/uL (0.0-0.8); NEUT # 2.7 K/uL (1.8-7.0); NEUT % 45.4 % (50.0-75.0); RBC 3.35 Mil/uL (3.80-5.20); RED CELL DISTRIBUTION WIDTH 13.4 % (11.5-14.5)
[2018-04-29 08:32] LABS: ALB/GLOB RATIO 1.2 (1.0-2.1); ALT/SGPT 73 U/L (9-52); AST/SGOT 35 U/L (14-36); BLOOD UREA NITROGEN 15 mg/dL (7-17); CALCIUM 8.7 mg/dl (8.6-10.4); GFR NON-AFRICAN AMERICAN > 60
[2018-04-29] MEDS: Pantoprazole 40 mg EC Tab PO SCH (10:03)
--- NOTE | 2018-04-29 10:45 | CP.PCM.PN ---
Subjective - Date & Time of Evaluation Date of Evaluation: 04/29/18 Time of Evaluation: 09:00 - Subjective Subjective: c/o nausea no fever or chills awake alert nad for OR today closure Objective - Vital Signs/Intake and Output Vital Signs (last 24 hours): Temp Pulse Resp BP Pulse Ox 97.7 F 64 20 97/60 L 99 04/29/18 07:55 04/29/18 07:55 04/29/18 07:55 04/29/18 07:55 04/29/18 07:55 Intake and Output: 04/29/18 04/29/18 06:59 18:59 Intake Total 60 Balance 60 - Medications Medications: Current Medications Al Hydrox/Mg Hydrox/Simethicone (Maalox 30 Ml) 30 ml PO Q6 PRN PRN Reason: Heartburn Last Admin: 04/29/18 10:03 Dose: 30 ml Albuterol/Ipratropium (Duoneb 3 Mg/0.5 Mg (3 Ml) Ud) 3 ml INH RQ6 [facility]IO Last Admin: 04/29/18 08:41 Dose: 3 ml Alprazolam (Xanax) 1 mg PO BID PRN PRN Reason: Anxiety Last Admin: 04/28/18 16:26 Dose: 1 mg Dicyclomine HCl (Bentyl) 10 mg PO Q6 [facility] Last Admin: 04/29/18 06:20 Dose: Not Given Diphenhydramine HCl (Benadryl) 25 mg PO Q6 PRN PRN Reason: Itching / Pruritus Last Admin: 04/28/18 00:35 Dose: 25 mg Hydroxyzine HCl (Atarax) 50 mg PO Q8 PRN PRN Reason: Allergy symptoms Last Admin: 04/29/18 03:40 Dose: 50 mg Loratadine (Claritin) 10 mg PO DAILY [facility] Last Admin: 04/29/18 10:03 Dose: 10 mg Ondansetron HCl (Zofran Odt) 4 mg PO Q6H PRN PRN Reason: Nausea/Vomiting Last Admin: 04/29/18 03:29 Dose: 4 mg Oxycodone HCl (Oxycodone Immediate Release Tab) 5 mg PO Q6 PRN PRN Reason: Pain, moderate (4-7) Last Admin: 04/29/18 10:03 Dose: 5 mg Pantoprazole Sodium (Protonix Ec Tab) 40 mg PO DAILY [facility] Last Admin: 04/29/18 10:03 Dose: 40 mg - Labs Labs: 04/29/18 07:42 04/29/18 07:42 - Constitutional Appears: Non-toxic, Cachectic - Head Exam Head Exam: NORMOCEPHALIC - Eye Exam Eye Exam: PERRL - ENT Exam ENT Exam: Mucous Membranes Dry - Neck Exam Neck Exam: absent: Lymphadenopathy - Respiratory Exam Respiratory Exam: Decreased Breath Sounds - Cardiovascular Exam Cardiovascular Exam: REGULAR RHYTHM - GI/Abdominal Exam GI & Abdominal Exam: Distended, Soft Assessment and Plan (1) Weakness Status: Acute (2) Abscess of groin, left Status: Acute (3) Abscess of groin, right Status: Acute
[2018-04-29] MEDS ORDERED: Lactated Ringer's 1,000 ML IV ONE (11:55)
--- NOTE | 2018-04-29 13:05 | VASCLAB ---
Date of service: 04/26/2018 PROCEDURE: Right Upper Extremity Venous Duplex Exam HISTORY: picc line and arm pain PRIORS: None. TECHNIQUE: Right upper extremity, internal jugular, subclavian, axillary, brachial, ulnar, radial, basilic and upper cephalic veins were evaluated. Flow was assessed with color Doppler, compressibility, assessment of phasic flow and augmentation response. Report prepared by Axel Pollock, NICO, RVT FINDINGS: RIGHT: 1. Internal Jugular: 1.1. Compressibility - Fully compressible: Thrombus - None : Flow - Phasic: Augmentation -Normal: Reflux - None. 2. Subclavian: 2.1. Compressibility - Fully compressible: Thrombus - None : Flow - Phasic: Augmentation -Normal: Reflux - None. 3. Axillary: 3.1. Compressibility - Fully compressible: Thrombus - None : Flow - Phasic: Augmentation -Normal: Reflux - None. 4. Brachial: 4.1. Compressibility - Fully compressible: Thrombus - None: Flow - Phasic: Augmentation -Normal: Reflux - None. 5. Ulnar: 5.1. Compressibility - Fully compressible: Thrombus - None: Flow - Phasic: Augmentation -Normal: Reflux - None. 6. Radial: 6.1. Compressibility - Fully compressible: Thrombus - None: Flow - Phasic: Augmentation - Normal: Reflux - None. 7. Cephalic: 7.1. Compressibility - Fully compressible: Thrombus - None: Flow - Phasic: Augmentation -Normal: Reflux - None. 8. Basilic: 8.1. Compressibility - Fully compressible: Thrombus - None: Flow - Phasic: Augmentation -Normal: Reflux - None. OTHER FINDINGS: Right: None. IMPRESSION: Right: No evidence of vein thrombosis of the right upper extremity with excellent venous flow. Normal valve function noted of the right side. Normal venous flow noted in the left internal jugular and left subclavian veins.
--- NOTE | 2018-04-29 13:35 | CP.PCM.PN ---
<Tanya Mercer - Last Filed: 04/29/18 13:41> Subjective - Date & Time of Evaluation Date of Evaluation: 04/29/18 Time of Evaluation: 07:00 - Subjective Subjective: PGY2-Progress Note for Patient seen and examined at bedside. Patient says she is still having about 4- 5 episodes of watery yellow/ green diarrhea daily. Patient has diffuse abdominal tenderness and decreased appetite. Patient denies any chest pain, shortness of breath, abdominal pain, nausea, or vomiting. Objective - Vital Signs/Intake and Output Vital Signs (last 24 hours): Temp Pulse Resp BP Pulse Ox 97.7 F 64 20 97/60 L 99 04/29/18 07:55 04/29/18 07:55 04/29/18 07:55 04/29/18 07:55 04/29/18 07:55 Intake and Output: 04/29/18 04/29/18 06:59 18:59 Intake Total 60 Balance 60 - Medications Medications: Current Medications Al Hydrox/Mg Hydrox/Simethicone (Maalox 30 Ml) 30 ml PO Q6 PRN PRN Reason: Heartburn Last Admin: 04/29/18 10:03 Dose: 30 ml Albuterol/Ipratropium (Duoneb 3 Mg/0.5 Mg (3 Ml) Ud) 3 ml INH RQ6 ROGERIO Last Admin: 04/29/18 08:41 Dose: 3 ml Alprazolam (Xanax) 1 mg PO BID PRN PRN Reason: Anxiety Last Admin: 04/28/18 16:26 Dose: 1 mg Dicyclomine HCl (Bentyl) 10 mg PO Q6 ROGERIO Last Admin: 04/29/18 12:26 Dose: 10 mg Diphenhydramine HCl (Benadryl) 25 mg PO Q6 PRN PRN Reason: Itching / Pruritus Last Admin: 04/28/18 00:35 Dose: 25 mg Hydroxyzine HCl (Atarax) 50 mg PO Q8 PRN PRN Reason: Allergy symptoms Last Admin: 04/29/18 03:40 Dose: 50 mg Loratadine (Claritin) 10 mg PO DAILY [facility] Last Admin: 04/29/18 10:03 Dose: 10 mg Ondansetron HCl (Zofran Odt) 4 mg PO Q6H PRN PRN Reason: Nausea/Vomiting Last Admin: 04/29/18 12:26 Dose: 4 mg Oxycodone HCl (Oxycodone Immediate Release Tab) 5 mg PO Q6 PRN PRN Reason: Pain, moderate (4-7) Last Admin: 04/29/18 10:03 Dose: 5 mg Pantoprazole Sodium (Protonix Ec Tab) 40 mg PO DAILY [facility] Last Admin: 04/29/18 10:03 Dose: 40 mg Saccharomyces Boulardii (Florastor) 250 mg PO BID [facility] Stop: 05/30/18 18:00 - Labs Labs: 04/29/18 07:42 04/29/18 07:42 - Additional Findings Additional findings: - Constitutional Appears: Non-toxic, No Acute Distress - Head Exam Head Exam: ATRAUMATIC, NORMAL INSPECTION, NORMOCEPHALIC - Eye Exam Eye Exam: EOMI, Normal appearance - ENT Exam ENT Exam: Mucous Membranes Moist - Respiratory Exam Respiratory Exam: Clear to Ausculation Bilateral, NORMAL BREATHING PATTERN - Cardiovascular Exam Cardiovascular Exam: REGULAR RHYTHM, RRR, +S1, +S2 - GI/Abdominal Exam GI & Abdominal Exam: Soft, Tenderness, Normal Bowel Sounds - Exam Additional comments: inguinal abscesses healing well with c/d/i packing and dressings - Extremities Exam Extremities Exam: Full ROM, Normal Inspection. absent: Pedal Edema, Tenderness - Neurological Exam Neurological Exam: Alert, Awake, Oriented x3 - Psychiatric Exam Psychiatric exam: Normal Affect, Normal Mood - Skin Skin Exam: Intact, Normal Color, Warm Assessment and Plan - Assessment and Plan (Free Text) Assessment: Bilateral Groin Abscesses patient for OR today for wound closures IV antibiotics stopped on 04/28/18, linezolid 600mg IV q12 and aztreonam 1g IV q8 , as per Dr. Gastelum's recommendations Surgery- Dr. Siddiqui consulted- recommendations appreciated Afebrile, WBC WNL PICC line placed on 04/23/18 CXR (04/17/18): Negative for active disease Wound culture (04/18/18): + proteus mirabilis Wound culture (04/22/18): e coli, proteus mirabilis surgical procedures with Dr. Siddiqui - Initial procedure on 04/18/18 - Repeat debridement on 04/19/18 - Repeat debridement on 04/22/18 Diarrhea -OVA and parasite pending -Stool culture: no salmonella, shigella or campylobacter -Bentyl 10mg po q6 -C diff negative (04/24 and 04/26) Reactive Hep C Antibody abdominal u/s: unremarkable f/u HCV genotype and viral load Left Arm Rash and Pain, resolved UE duplex: negative Glossitis -B12 354 -folate 8.6 Pruritus Benadryl 25 mg po q6 prn Hydroxyzine 50 mg po q8 prn Nausea -bland diet Zofran 4 mg po q6 prn Abdominal and Groin Pain -Oxycodone 5mg PO q6 Trasaminitis decreasing AST: 56; ALT: 94 Hep C antibody- reactive Avoid Hepatotoxic medications (NSAIDS, ASA) GI consulted, Dr. Bryant Monitor Hx of Stricture GI consulted, Dr. Bryant Anxiety - Continue home Xanax 1 mg PO BID Seasonal allergies - Continue home Claritin 10mg PO Daily Prophylaxis - VTE anticoagulant per surgery - Heart Healthy Diet - Protonix 40mg PO daily - PT and OT Discussed with <Royer Patel - Last Filed: 04/29/18 22:07> Objective - Vital Signs/Intake and Output Vital Signs (last 24 hours): Temp Pulse Resp BP Pulse Ox 97.6 F 73 20 140/83 98 04/29/18 17:11 04/29/18 17:11 04/29/18 17:11 04/29/18 17:11 04/29/18 17:11 Intake and Output: 04/29/18 04/30/18 18:59 06:59 Intake Total 250 Output Total 2 Balance 248 - Medications Medications: Current Medications Al Hydrox/Mg Hydrox/Simethicone (Maalox 30 Ml) 30 ml PO Q6 PRN PRN Reason: Heartburn Last Admin: 04/29/18 10:03 Dose: 30 ml Albuterol/Ipratropium (Duoneb 3 Mg/0.5 Mg (3 Ml) Ud) 3 ml INH RQ6 ROGERIO Last Admin: 04/29/18 19:50 Dose: Not Given Alprazolam (Xanax) 1 mg PO BID PRN PRN Reason: Anxiety Last Admin: 04/28/18 16:26 Dose: 1 mg Dicyclomine HCl (Bentyl) 10 mg PO Q6 [facility] Last Admin: 04/29/18 17:34 Dose: 10 mg Diphenhydramine HCl (Benadryl) 25 mg PO Q6 PRN PRN Reason: Itching / Pruritus Last Admin: 04/29/18 17:39 Dose: 25 mg Hydroxyzine HCl (Atarax) 50 mg PO Q8 PRN PRN Reason: Allergy symptoms Last Admin: 04/29/18 20:03 Dose: 50 mg Lactated Ringer's (Lactated Ringer's) 1,000 mls @ 100 mls/hr IV .Q10H [facility] Loratadine (Claritin) 10 mg PO DAILY [facility] Last Admin: 04/29/18 10:03 Dose: 10 mg Ondansetron HCl (Zofran Odt) 4 mg PO Q6H PRN PRN Reason: Nausea/Vomiting Last Admin: 04/29/18 12:26 Dose: 4 mg Oxycodone HCl (Oxycodone Immediate Release Tab) 5 mg PO Q6 PRN PRN Reason: Pain, moderate (4-7) Last Admin: 04/29/18 10:03 Dose: 5 mg Pantoprazole Sodium (Protonix Ec Tab) 40 mg PO DAILY [facility] Last Admin: 04/29/18 10:03 Dose: 40 mg Saccharomyces Boulardii (Florastor) 250 mg PO BID [facility] Stop: 05/30/18 18:00 Last Admin: 04/29/18 17:34 Dose: 250 mg - Labs Labs: 04/29/18 07:42 04/29/18 07:42 Attending/Attestation - Attestation I have personally seen and examined this patient.: Yes I have fully participated in the care of the patient.: Yes I have reviewed all pertinent clinical information, including history, physical exam and plan: Yes Notes (Text): 04/29/18 22:[address] Diehl who will assume care 04/25/18 Patient was seen and examined at 10:45 AM 04/29/18 361 A. Also on ROS: Tolerated mashed potatoes and turkey last night Yellow watery bowel movement today Feet/legs are weak NO other complaints HEENT, Cardio, Resp, GI, Ext, II through XII exams were unremarkable No more antibiotic as per ID Dr. Gastelum. For OR today with Dr. Artur Quezada added as she was on antibiotics Stool cultures are negative with O&P results pending Blood culture negative to date. Royer Patel D.O.
[2018-04-29] MEDS ORDERED: Midazolam 2 MG/2 ML VIAL ONE (15:16)
[2018-04-29] MEDS ORDERED: Propofol 10 mg/ml Inj (20 ML) ONE (15:16)
[2018-04-29] MEDS ORDERED: Lactated Ringer's 1,000 ML IV SCH (16:15)
--- NOTE | 2018-04-29 17:01 | PN ---
Copied To: Theo Coleman MD Attending MD: Theo Coleman MD DATE: 04/29/2018 LOCATION: 368, Bed A. SUBJECTIVE: This is a 37-year-old female seen initially for GI consultation on 04/28/2018 as requested by the admitting MD, reexamined again today in the presence of , the hospitalist. Still complaining of abdominal pain, diarrhea, intermittent period of nausea with dyspepsia with slight generalized weakness. No chills or fever. No chest pain or palpitation. No significant complaint of shortness of breath. The patient is for OR today for possible washout of her bilateral inguinal hernia wound and closure. The entire chart is reviewed including but not limited to most recent lab and radiology study results, current and the previous medication list, current and the previous medical events and today's lab showed hemoglobin of 10.6, hematocrit 30.4 with ALT of 73. Stool workup is still pending and hepatitis C antibody reported to be positive. Abdominal ultrasound official report is seen. PHYSICAL EXAMINATION: GENERAL: A 37-year-old female. VITAL SIGNS: Afebrile with pulse of 68, respiratory rate 20 to 22, blood pressure 110/64. HEENT: Showed mildly pale, dry oral mucous membrane. Nonicteric sclerae. LUNGS: Clear. Breathing sounds are present bilaterally. HEART: Positive S1 and S2. ABDOMEN: Slightly obese with bilateral inguinal hernia dressing and tenderness. Bowel sounds are hyperactive. No mass or organomegaly. No rebound tenderness or guarding. EXTREMITIES: Without significant clubbing, cyanosis, or edema. SOFTWARE PROGRAMMER: No reported new neurological deficits, sensory, or motor. No focal deficits. IMPRESSION: 1. Diarrhea, the possibility of pseudomembranous colitis; however, is still to be considered versus collagenous colitis. 2. Reexacerbation of peptic ulcer disease with recurrent episodes of nausea and dyspepsia. 3. Bilateral inguinal area abscess formation treated surgically. 4. Anemia, most likely secondary to above, to rule out gastric versus duodenal ulcer. 5. Hepatitis C viral infection by history as reported by recent lab results. 6. Known history of severe anxiety syndrome, bronchial asthma, and pneumonia, status post hysterectomy, cholecystectomy and cesarian section, by history. SUGGESTIONS: 1. Agree with your plan. 2. Follow up and complete stool results. 3. Endoscopic evaluation of the upper GI tract, may need endoscopy only when she is more stable clinically and continue. 4. Rehydration. 5. PICC line IV. 6. Further recommendation to follow. Theo Coleman MD
[2018-04-29 17:13] VITALS: RESP 20
[2018-04-29] MEDS: Saccharomyces Boulardi 250 mg Cap PO SCH (17:34)
[2018-04-30] MEDS: Albuterol-Ipratrop 3 mg / 0.5 (3 ml) UD INH SCH ×4 (02:45→20:05)
--- NOTE | 2018-04-30 03:24 | OP ---
Copied To: Nitish Siddiqui MD Attending MD: Nitish Siddiqui MD PROCEDURE DATE: 04/28/2018 PREOPERATIVE DIAGNOSIS: Multiple open pelvic and retroperitoneal wounds. POSTOPERATIVE DIAGNOSIS: Multiple open pelvic and retroperitoneal wounds. PROCEDURE PERFORMED: Re-drainage of multiple pelvic and groin abscesses with debridement and partial closure. SURGEON: Nitish Siddiqui MD ANESTHESIA: General. ESTIMATED BLOOD LOSS: 15 mL. POSTOPERATIVE CONDITION: Stable. INDICATIONS FOR SURGERY: A 37-year-old female who was admitted back to the hospital with symptoms of weakness and failure to thrive after she has undergone treatment of extensive groin and pelvic abscesses. She is now taken back to the operating room for change of packing under anesthesia, evaluation of the wounds, and further cleansing and debridement. DESCRIPTION OF PROCEDURE: The patient was taken to the operating room, general anesthesia administered, and the packing from the groin and the pelvic areas were prepped and draped. The wounds were all pulse irrigated with saline and Kantrex solution and debrided. Large bleeders were repaired. Partial tissue transfer closures were performed at the periphery. The central portion of the wound was packed open with wet saline gauze. The patient tolerated the procedure well. Returned to recovery room in stable condition. Nitish Siddiqui MD
[2018-04-30] MEDS: oxyCODONE 5 mg Immediate Release Tab PO PRN ×3 (05:42→16:03)
[2018-04-30] MEDS: Saccharomyces Boulardi 250 mg Cap PO SCH ×2 (09:52→18:09)
[2018-04-30] MEDS: Pantoprazole 40 mg EC Tab PO SCH (09:52)
--- NOTE | 2018-04-30 10:13 | CP.PCM.PN ---
Subjective - Date & Time of Evaluation Date of Evaluation: 04/30/18 Time of Evaluation: 08:00 - Subjective Subjective: PGY3-Progress Note for Dr. Diehl: Patient seen and examined at bedside. Patient says she is still having diarrhea but that it is starting to become more formed. She is upset because she feels anxious about her condition and anxious about going to rehab. Patient has diffuse abdominal tenderness and decreased appetite but was able to eat a banana , liquids and oatmeal. Patient denies any chest pain, shortness of breath, abdominal pain, nausea, or vomiting. Patient went to the OR yesterday for wound closure. Objective - Vital Signs/Intake and Output Vital Signs (last 24 hours): Temp Pulse Resp BP Pulse Ox 98.1 F 81 20 110/65 98 04/30/18 08:00 04/30/18 08:00 04/30/18 08:00 04/30/18 08:00 04/30/18 08:00 Intake and Output: 04/30/18 04/30/18 06:59 18:59 Intake Total 420 Balance 420 - Medications Medications: Current Medications Al Hydrox/Mg Hydrox/Simethicone (Maalox 30 Ml) 30 ml PO Q6 PRN PRN Reason: Heartburn Last Admin: 04/29/18 10:03 Dose: 30 ml Albuterol/Ipratropium (Duoneb 3 Mg/0.5 Mg (3 Ml) Ud) 3 ml INH RQ6 ROGERIO Last Admin: 04/30/18 07:24 Dose: Not Given Alprazolam (Xanax) 1 mg PO BID PRN PRN Reason: Anxiety Last Admin: 04/29/18 23:41 Dose: 1 mg Dicyclomine HCl (Bentyl) 10 mg PO Q6 [facility]OGERIO Last Admin: 04/30/18 05:44 Dose: 10 mg Diphenhydramine HCl (Benadryl) 25 mg PO Q6 PRN PRN Reason: Itching / Pruritus Last Admin: 04/30/18 05:45 Dose: 25 mg Hydroxyzine HCl (Atarax) 50 mg PO Q8 PRN PRN Reason: Allergy symptoms Last Admin: 04/29/18 20:03 Dose: 50 mg Lactated Ringer's (Lactated Ringer's) 1,000 mls @ 100 mls/hr IV .Q10H [facility]ER[facility] Last Admin: 04/30/18 02:15 Dose: Not Given Loratadine (Claritin) 10 mg PO DAILY [facility] Last Admin: 04/30/18 09:52 Dose: 10 mg Ondansetron HCl (Zofran Odt) 4 mg PO Q6H PRN PRN Reason: Nausea/Vomiting Last Admin: 04/29/18 12:26 Dose: 4 mg Oxycodone HCl (Oxycodone Immediate Release Tab) 5 mg PO Q6 PRN PRN Reason: Pain, moderate (4-7) Last Admin: 04/30/18 05:42 Dose: 5 mg Pantoprazole Sodium (Protonix Ec Tab) 40 mg PO DAILY [facility] Last Admin: 04/30/18 09:52 Dose: 40 mg Saccharomyces Boulardii (Florastor) 250 mg PO BID [facility] Stop: 05/30/18 18:00 Last Admin: 04/30/18 09:52 Dose: 250 mg - Labs Labs: 04/29/18 07:42 04/29/18 07:42 - Constitutional Appears: Non-toxic, No Acute Distress - Head Exam Head Exam: ATRAUMATIC, NORMAL INSPECTION - Eye Exam Eye Exam: EOMI, Normal appearance, PERRL Pupil Exam: NORMAL ACCOMODATION - ENT Exam ENT Exam: Mucous Membranes Moist - Respiratory Exam Respiratory Exam: Clear to Ausculation Bilateral, NORMAL BREATHING PATTERN. absent: Respiratory Distress - Cardiovascular Exam Cardiovascular Exam: REGULAR RHYTHM, +S1, +S2 - GI/Abdominal Exam GI & Abdominal Exam: Soft, Tenderness, Normal Bowel Sounds. absent: Distended, Firm, Guarding Additional comments: obese - Exam Additional comments: inguinal abscesses wound closed. dressing c/d/i - Extremities Exam Extremities Exam: Normal Inspection - Back Exam Back Exam: NORMAL INSPECTION. absent: CVA tenderness (L), CVA tenderness (R), paraspinal tenderness - Neurological Exam Neurological Exam: Alert, Awake, CN II-XII Intact, Oriented x3 - Psychiatric Exam Psychiatric exam: Normal Affect, Normal Mood - Skin Skin Exam: Normal Color Assessment and Plan - Assessment and Plan (Free Text) Assessment: Bilateral Groin Abscesses W IV antibiotics stopped on 04/28/18, linezolid 600mg IV q12 and aztreonam 1g IV q8 , as per Dr. Gastelum's recommendations Surgery- Dr. Siddiqui consulted- recommendations appreciated Afebrile, WBC WNL PICC line placed on 04/23/18 CXR (04/17/18): Negative for active disease Wound culture (04/18/18): + proteus mirabilis Wound culture (04/22/18): e coli, proteus mirabilis surgical procedures with Dr. Siddiqui - Initial procedure on 04/18/18 - Repeat debridement on 04/19/18 - Repeat debridement on 04/22/18 Diarrhea -OVA and parasite pending -Stool culture: no salmonella, shigella or campylobacter -Bentyl 10mg po q6 -C diff negative (04/24 and 04/26) Reactive Hep C Antibody abdominal u/s: unremarkable f/u HCV genotype and viral load Left Arm Rash and Pain, resolved UE duplex: negative Glossitis -B12 354 -folate 8.6 Pruritus Benadryl 25 mg po q6 prn Hydroxyzine 50 mg po q8 prn Nausea -bland diet Zofran 4 mg po q6 prn Abdominal and Groin Pain -Oxycodone 5mg PO q6 Trasaminitis decreasing Hep C antibody- reactive Avoid Hepatotoxic medications (NSAIDS, ASA) GI consulted, Dr. Bryant Monitor Hx of Stricture GI consulted, Dr. Bryant Anxiety - Continue home Xanax 1 mg PO BID Seasonal allergies - Continue home Claritin 10mg PO Daily Prophylaxis - VTE anticoagulant per surgery - Heart Healthy Diet - Protonix 40mg PO daily - Florastor 250mg PO BID - PT and OT All management and orders per Dr. Fazal Smallwood DO PGY3 Patient is stable for discharge home with home nursing and physical therapy services. She is to follow up with Dr. Diehl within one week of discharge for post hospital care. She is also to follow up with Dr. Siddiqui within one week for post surgical care. She is to resume all home medications. Patient is to follow up outpatient and request referral to infectious disease for hepatitis treatment. Patient has completed antibiotic therapy and the PICC line is to be removed. All instructions explained to the patient and she agrees.
[2018-04-30 12:05] LABS: BASO % 0.7 % (0.0-2.0); EOS # 0.3 K/uL (0.0-0.7); EOS % 5.3 % (0.0-4.0); HEMOGLOBIN 11.3 g/dL (11.0-16.0); LYMPH # 1.9 K/uL (1.0-4.3); LYMPH % 37.9 % (20.0-40.0); MEAN CELL VOLUME 90.8 fL (81.0-99.0); MEAN CORPUSCULAR HEMOGLOBIN 31.3 pg (27.0-31.0); MEAN CORPUSCULAR HGB CONC 34.5 g/dL (33.0-37.0); MEAN PLATELET VOLUME 7.4 fL (7.2-11.7); MONO # 0.4 K/uL (0.0-0.8); MONO % 8.8 % (0.0-10.0); NEUT # 2.4 K/uL (1.8-7.0); NEUT % 47.3 % (50.0-75.0); RBC 3.61 Mil/uL (3.80-5.20); RED CELL DISTRIBUTION WIDTH 13.3 % (11.5-14.5)
[2018-04-30 12:32] LABS: ALB/GLOB RATIO 1.1 (1.0-2.1); ALBUMIN 4.2 g/dL (3.5-5.0); ALT/SGPT 50 U/L (9-52); AST/SGOT 26 U/L (14-36); BLOOD UREA NITROGEN 15 mg/dL (7-17); GFR NON-AFRICAN AMERICAN > 60
--- NOTE | 2018-04-30 12:37 | CON ---
Copied To: Theo Coleman MD Attending MD: Theo Coleman MD DATE: 04/28/2018 LOCATION: 368, bed A. This is from Dr. Coleman to Dr. Oliva Gtz. I was called for a GI consultation by the admitting medical team. The patient is seen and fully examined on 04/28/2018 as requested by the admitting MD. The entire chart is reviewed including but not limited to the most recent lab and radiology study results, current and the previous medication list, current and the previous medical events, allergy to medication list as well as all the available current and the previous medical records. This is a 37-year-old female admitted to the hospital through the emergency room with the main complaint of generalized weakness and malaise, low-grade fever, poor oral intake, postprandial abdominal distention with nausea, dyspepsia and reported episodes of vomiting. The patient had been recently in the hospital with underlying diagnosis of with postsurgical evacuation of bilateral inguinal area abscess like formations. No reported active GI bleeding. PAST MEDICAL HISTORY: Including but not limited to, 1. Peptic ulcer disease. 2. Pneumonia. 3. Status post cholecystectomy. 4. Severe anxiety syndrome. 5. Status post . 6. Status post tonsillectomy. CURRENT MEDICATIONS: Post-admission medication lists were reviewed. FAMILY HISTORY: Unrelated to specific GI disorder. SOCIAL HISTORY: Positive for cigarette smoking, but no recent history of alcohol intake. Most recent lab results post-admission showed normal CBC, but with subsequent drop of hemoglobin and hematocrit post-admission. The patient also was found to have mildly elevated blood glucose level, but low CO2 content indicative of metabolic acidosis. PHYSICAL EXAMINATION: GENERAL: A 37-year-old female, awake, alert and oriented, complaining of lower abdominal pain bilaterally as well as midepigastric pain. VITAL SIGNS: The patient is afebrile with pulse of 66, respiratory rate 18 to 20, blood pressure of 132/84. HEENT: Showed dry, oral mucous membrane. Nonicteric sclerae. LUNGS: Few scattered mild crepitation. Breathing sounds are present bilaterally. HEART: Positive S1 and S2. ABDOMEN: Soft with [id number] distention with midepigastric tenderness as well as bilateral inguinal area tenderness covered with clean dressing. No other mass or organomegaly. No rebound tenderness or guarding. EXTREMITIES: Without significant clubbing, cyanosis or edema. BUTCHER'S ASSISTANT: No reported new neurological deficits, sensory, or motor. IMPRESSION: 1. Re-exacerbation of peptic ulcer disease. 2. Bilateral inguinal area abscess formation treated surgically. 3. Past medical history as above. 4. To rule out an early phase of acute pancreatitis. 5. It has to be mentioned that the patient experienced episodes of profuse diarrhea recently, which could be related to her intravenous antibiotics and complete stool workup results still pending. SUGGESTIONS: 1. Agree with your plan. 2. Sectional abdominal and pelvic CAT scan. 3. Antireflux measure. 4. Cancer markers including CEA level. 5. Guaiac all the stool everyday x3. Again, the patient will need endoscopic evaluation of the GI tract only after complete surgical reevaluation and when she is more stable clinically. Thank you for letting me participate in your patient's case management. Theo Coleman MD
--- NOTE | 2018-04-30 15:04 | CP.PCM.PN ---
Subjective - Date & Time of Evaluation Date of Evaluation: 04/30/18 Time of Evaluation: 14:00 - Subjective Subjective: PGY-4 GI Prog Note Pt sitting up in bed talking on phone when entered. States that abd pain and loose stools mildly improved. Denied hematemesis, melena hematochezia. 5 point ROS negative other than stated above Objective - Vital Signs/Intake and Output Vital Signs (last 24 hours): Temp Pulse Resp BP Pulse Ox 98.1 F 81 20 110/65 98 04/30/18 08:00 04/30/18 08:00 04/30/18 08:00 04/30/18 08:00 04/30/18 08:00 Intake and Output: 04/30/18 04/30/18 06:59 18:59 Intake Total 420 480 Balance 420 480 - Medications Medications: Current Medications Al Hydrox/Mg Hydrox/Simethicone (Maalox 30 Ml) 30 ml PO Q6 PRN PRN Reason: Heartburn Last Admin: 04/29/18 10:03 Dose: 30 ml Albuterol/Ipratropium (Duoneb 3 Mg/0.5 Mg (3 Ml) Ud) 3 ml INH RQ6 [facility]OGERIO Last Admin: 04/30/18 13:34 Dose: Not Given Alprazolam (Xanax) 1 mg PO BID PRN PRN Reason: Anxiety Last Admin: 04/30/18 12:08 Dose: 1 mg Dicyclomine HCl (Bentyl) 10 mg PO Q6 [facility] Last Admin: 04/30/18 12:04 Dose: 10 mg Diphenhydramine HCl (Benadryl) 25 mg PO Q6 PRN PRN Reason: Itching / Pruritus Last Admin: 04/30/18 05:45 Dose: 25 mg Hydroxyzine HCl (Atarax) 50 mg PO Q8 PRN PRN Reason: Allergy symptoms Last Admin: 04/30/18 14:09 Dose: 50 mg Lactated Ringer's (Lactated Ringer's) 1,000 mls @ 100 mls/hr IV .Q10H [facility] Last Admin: 04/30/18 02:15 Dose: Not Given Loratadine (Claritin) 10 mg PO DAILY [facility] Last Admin: 04/30/18 09:52 Dose: 10 mg Ondansetron HCl (Zofran Odt) 4 mg PO Q6H PRN PRN Reason: Nausea/Vomiting Last Admin: 04/29/18 12:26 Dose: 4 mg Oxycodone HCl (Oxycodone Immediate Release Tab) 5 mg PO Q6 PRN PRN Reason: Pain, moderate (4-7) Last Admin: 04/30/18 10:10 Dose: 5 mg Pantoprazole Sodium (Protonix Ec Tab) 40 mg PO DAILY [facility] Last Admin: 04/30/18 09:52 Dose: 40 mg Saccharomyces Boulardii (Florastor) 250 mg PO BID [facility] Stop: 05/30/18 18:00 Last Admin: 04/30/18 09:52 Dose: 250 mg - Labs Labs: 04/30/18 11:54 04/30/18 11:54 - Constitutional Appears: Non-toxic, No Acute Distress - Head Exam Head Exam: ATRAUMATIC, NORMAL INSPECTION - Respiratory Exam Respiratory Exam: NORMAL BREATHING PATTERN. absent: Accessory Muscle Use, Prolonged Expiratory Phase, Wheezes - GI/Abdominal Exam GI & Abdominal Exam: Soft, Tenderness (mildly in epigastrum w/o guarding), Normal Bowel Sounds. absent: Bruit, Distended, Firm, Guarding, Rigid Assessment and Plan - Assessment and Plan (Free Text) Assessment: # Abd Pain, Chronic: On dicyclomine and other non-formulary medication # PUD: On PPI, states last EGD a few months ago. # Diarrhea, Chronic: Mildly improved per pt. Recent Abx use. C diff negative, perhaps Abx related diarrhea. Consider microscopic colitis. # HCV: No sign of cirrhosis on recent Abd US Plan: - Cont symptomatic management iwth dicyclomine, PPI, home medication for abd pain if able - Considering Endoscopy later in week if symptoms persist - Stool Cx negative - Await C diff -
--- NOTE | 2018-04-30 18:29 | PN ---
Copied To: Theo Coleman MD Attending MD: Theo Coleman MD DATE: 04/30/2018 LOCATION: 361, bed A. SUBJECTIVE: This is a 37-year-old female seen and examined in rounds without significant clinical changes with the complaint of abdominal pain with oral intake with generalized weakness and malaise. The patient is post-debridement of multiple groin wounds with pulse irrigation done yesterday. PHYSICAL EXAMINATION: GENERAL: A 37-year-old female. VITAL SIGNS: Afebrile with pulse of 82, blood pressure 114/62, respiratory rate 20-22. HEENT: Showed mildly pale, dry oral mucous membrane. Nonicteric sclerae. LUNGS: Few scattered crepitation. Decreased air entry at bases. HEART: Positive S1 and S2. ABDOMEN: Soft with mild generalized tenderness. No mass or organomegaly. No rebound tenderness or guarding, but with mild distention and tenderness at both groin areas. EXTREMITIES: Without edema, clubbing, or cyanosis. NEUROLOGIC: No reported new neurological deficits, sensory or motor. IMPRESSION: 1. Bilateral groin abscess formation treated surgically, was infected once. 2. Re-exacerbation of peptic ulcer disease. 3. Abnormal liver function test, with a history of hepatitis C viral infection. 4. Pneumonia by history. 5. Diarrhea of unclear etiology that could be secondary to pseudomembranous colitis due to multiple antibiotic intake. SUGGESTIONS: 1. Continue current management. 2. Endoscopic evaluation of the gastrointestinal tract once the patient is more stable clinically. 3. Vancomycin p.o. That to be discussed with the ID strategy execution consultant. Further recommendation to follow. Theo Coleman MD
[2018-05-01] MEDS: oxyCODONE 5 mg Immediate Release Tab PO PRN ×2 (00:19→09:40)
[2018-05-01] MEDS: Albuterol-Ipratrop 3 mg / 0.5 (3 ml) UD INH SCH ×2 (01:37→07:38)
[2018-05-01 08:23] VITALS: BP 98/67; PULSE 75; TEMP 98.2; O2SAT 99
[2018-05-01] MEDS: Saccharomyces Boulardi 250 mg Cap PO SCH (09:40)
[2018-05-01] MEDS: Pantoprazole 40 mg EC Tab PO SCH (09:40)
--- NOTE | 2018-05-01 12:06 | CARD ---
APPROVED REPORT Date of service: 04/26/2018 EKG Measurement Heart [id number] <Conclusion> Normal sinus rhythm Normal ECG
--- NOTE | 2018-05-01 16:43 | PN ---
Copied To: Theo Coleman MD Attending MD: Theo Coleman MD DATE: 05/01/2018 LOCATION: 361, bed A. SUBJECTIVE: This is a 37-year-old female seen and examined early in rounds today, appeared to be awake, alert, oriented without any reported active bleeding, mild nausea with mild dyspepsia, but no chest pain, palpitation or significant complaint of shortness of breath. The entire chart is reviewed including but not limited to the most recent lab and radiology study results, current and the previous medication list, current and the previous medical events, and her latest CBC was normal, but today's lab is still pending. It has to be mentioned that the patient's hepatitis C antibody reported to be reactive before. PHYSICAL EXAMINATION: GENERAL: A 37-year-old female. VITAL SIGNS: Afebrile with pulse of 76, respiratory rate 20 to 22, blood pressure 104/64. HEENT: Showed dry oral mucous membrane. Nonicteric sclerae. LUNGS: Few scattered mild crepitation. Decreased air entry at bases. HEART: Positive S1 and S2. ABDOMEN: Soft. Bowel sounds are present. No mass or organomegaly. No rebound tenderness or guarding, but mild generalized tenderness. EXTREMITIES: Without significant clubbing, cyanosis or edema. NEUROLOGIC: No reported new neurological deficits, sensory, or motor. IMPRESSION: 1. Bilateral inguinal area abscess formation with recurrent infection, treated surgically. 2. Recent reported diarrhea, subsiding. No evidence of Clostridium difficile infection. 3. Hepatitis C viral infection, by history. 4. Episodes of hyperglycemia of unclear etiology. SUGGESTIONS: 1. Agree with your plan. 2. Antireflux measure. 3. Proton pump inhibitors. If there is significant complaint of persistent diarrhea, then colonoscopy to be scheduled as outpatient. Theo Coleman MD
--- NOTE | 2018-05-23 08:08 | DS ---
Copied To: Viviane Diehl MD Attending MD: Viviane Diehl MD DATE: 05/01/2018 The patient was admitted to the hospital with chief complaint of large wound of the groin. The patient to get IV antibiotics. Multiple surgeries. Gradual improvement. Discharged to be followed as outpatient. Viviane Diehl MD
--- NOTE | 2018-05-25 02:02 | PQF ---
PROVIDER RESPONSE TEXT: Provider was unable to determine a response for this query. REVIEWER QUERY TEXT: Debridement Type Debridement is documented in the Medical Record. Please specify the type and extent of debridement to include the method and instruments used. Depth of tissue removed: Such as: -- Skin -- Subcutaneous tissue -- Fascia -- Muscle -- Bone -- Other, please specify The patient's Clinical Indicators include: Please clarify the procedure -- EXCISIONAL OR NON EXCISIONAL DEBRIDEMENT. Query created by: Regina Ansari on 05/02/2018 10:40 AM Electronically signed by: Светлана Borges 05/25/2018 2:00 AM
== END 2018-05-01 10:42 | disposition home or self-care (01) | DRG 574 ==
LOC: C.ER 14:17 → C.9E 17:08 → C.3T 17:42 → OBSVTOIN 04-28 13:53 → C.3T 04-29 19:59
PROVIDERS: ADMIT Internal Medicine Pulmonary Disease; ATTEND Internal Medicine Pulmonary Disease
PROC: 0HDAXZZ Extraction of Inguinal Skin, External Approach (ICD-10-PCS; principal; 2018-04-28)
PROC: 0HXAXZZ Transfer Inguinal Skin, External Approach (ICD-10-PCS; 2018-04-28)
DX: L02.214 Cutaneous abscess of groin (principal); E87.2 Acidosis; K27.3 Acute peptic ulcer, site unspecified, without hemorrhage or perforation; D64.9 Anemia, unspecified; F17.210 Nicotine dependence, cigarettes, uncomplicated; F41.9 Anxiety disorder, unspecified; J45.909 Unspecified asthma, uncomplicated; L29.9 Pruritus, unspecified; K14.0 Glossitis; K59.00 Constipation, unspecified; R62.7 Adult failure to thrive; R73.9 Hyperglycemia, unspecified; B96.4 Proteus (mirabilis) (morganii) as the cause of diseases classified elsewhere

== ENCOUNTER 2018-05-24 11:00 | Inpatient (IN) | payer BC ==
[2018-05-24 11:01] VITALS: BMI 33.4
[2018-05-24 12:12] LABS: HCG,QUALITATIVE URINE NEGATIVE (NEGATIVE)
[2018-05-24 12:14] LABS: BASO # 0.1 K/uL (0.0-0.2); BASO % 1.1 % (0.0-2.0); EOS # 0.1 K/uL (0.0-0.7); EOS % 2.6 % (0.0-4.0); HEMOGLOBIN 10.7 g/dL (11.0-16.0); LYMPH # 2.3 K/uL (1.0-4.3); LYMPH % 41.4 % (20.0-40.0); MEAN CELL VOLUME 89.8 fL (81.0-99.0); MEAN CORPUSCULAR HGB CONC 34.5 g/dL (33.0-37.0); MEAN PLATELET VOLUME 8.1 fL (7.2-11.7); MONO # 0.4 K/uL (0.0-0.8); MONO % 7.6 % (0.0-10.0); NEUT # 2.6 K/uL (1.8-7.0); NEUT % 47.3 % (50.0-75.0); RBC 3.44 Mil/uL (3.80-5.20); RED CELL DISTRIBUTION WIDTH 14.1 % (11.5-14.5); WHITE BLOOD COUNT 5.6 K/uL (4.8-10.8)
[2018-05-24 12:15] LABS: SQUAMOUS EPITHIAL 1 /hpf (0-5); URINE BILIRUBIN NEGATIVE (NEGATIVE); URINE BLOOD NEGATIVE (NEGATIVE); URINE CLARITY Clear (Clear); URINE COLOR Straw (YELLOW); URINE GLUCOSE (UA) NORMAL (Normal); URINE LEUKOCYTE ESTERASE NEG Leu/uL (Negative); URINE PROTEIN NEGATIVE (NEGATIVE); URINE UROBILINOGEN NORMAL mg/dL (0.2-1.0)
[2018-05-24 12:23] LABS: INR 0.9; PROTHROMBIN TIME 10.3 SECONDS (9.7-12.2)
[2018-05-24 12:34] LABS: ALB/GLOB RATIO 1.2 (1.0-2.1); ALBUMIN 4.4 g/dL (3.5-5.0); ALT/SGPT 28 U/L (9-52); AST/SGOT 23 U/L (14-36); BLOOD UREA NITROGEN 9 mg/dL (7-17); CALCIUM 9.2 mg/dl (8.6-10.4); GFR NON-AFRICAN AMERICAN > 60
[2018-05-24] MEDS ORDERED: Albuterol-Ipratrop 3 mg / 0.5 (3 ml) UD ONE (13:13)
--- NOTE | 2018-05-24 13:17 | C.PDOC ---
History Of Present Illness 37 y/o female with PMHx of hidradenitis suppurativa presents to the ED complaining of pain and swelling in the groin area, mostly right on side. Patient was seen by Dr. Siddiqui and told she may need surgery. Referred to the ED for further evaluation. Currently patient denies any drainage, fever, or chills. Time Seen by Provider: 05/24/18 11:22 Chief Complaint (Nursing): Abnormal Skin Integrity History Per: Patient History/Exam Limitations: no limitations Onset/Duration Of Symptoms: Days Current Symptoms Are (Timing): Still Present Past Medical History Reviewed: Historical Data, Nursing Documentation, Vital Signs Vital Signs: Last Vital Signs Temp 97.6 F 05/24/18 16:16 Pulse 60 05/24/18 17:15 Resp 14 05/24/18 17:15 BP 115/76 05/24/18 17:15 Pulse Ox 100 05/24/18 17:15 - Medical History PMH: Anxiety, Asthma, Gastritis, Gall Bladder Disease, Pneumonia (MID. 2016 ) Denies: Chronic Kidney Disease Surgical History: Cholecystectomy, Endoscopy, Tonsillectomy, ( Myomectomy) Other Surgeries: I&D x13 - [facility] Procedures DRAINAGE OF GENITALIA SKIN, EXTERNAL APPROACH (04/17/18) DRAINAGE OF LEFT INGUINAL REGION, OPEN APPROACH (04/17/18) DRAINAGE OF LEFT INGUINAL REGION, OPEN APPROACH, DIAGNOSTIC (04/28/18) DRAINAGE OF PELVIC SUBCU/FASCIA, OPEN APPROACH (03/07/18) DRAINAGE OF PERINEUM SKIN, EXTERNAL APPROACH (04/19/16) DRAINAGE OF RETROPERITONEUM, OPEN APPROACH, DIAGNOSTIC (04/17/18) DRAINAGE OF RIGHT INGUINAL REGION, OPEN APPROACH (04/17/18) DRAINAGE OF RIGHT INGUINAL REGION, OPEN APPROACH, DIAGNOSTIC (04/28/18) EXCISION OF GENITALIA SKIN, EXTERNAL APPROACH (03/25/18) EXCISION OF LEFT UPPER LEG SKIN, EXTERNAL APPROACH (04/17/18) EXCISION OF RIGHT UPPER LEG SKIN, EXTERNAL APPROACH (04/17/18) EXCISION OF UTERUS, OPEN APPROACH (04/19/16) EXTRACTION OF GENITALIA SKIN, EXTERNAL APPROACH (03/25/18) EXTRACTION OF LEFT UPPER LEG SKIN, EXTERNAL APPROACH (04/17/18) EXTRACTION OF RIGHT UPPER LEG SKIN, EXTERNAL APPROACH (04/17/18) REPLACE L UP LEG SKIN W AUTOL SUB, PART THICK, PROMOTIONS DIRECTOR (04/17/18) REPLACE R UP LEG SKIN W AUTOL SUB, PART THICK, PROMOTIONS DIRECTOR (04/17/18) TRANSFER ABDOMEN SKIN, EXTERNAL APPROACH (04/17/18) TRANSFER GENITALIA SKIN, EXTERNAL APPROACH (04/28/18) TRANSFER LEFT UPPER LEG SKIN, EXTERNAL APPROACH (04/17/18) TRANSFER RIGHT UPPER LEG SKIN, EXTERNAL APPROACH (04/17/18) Family History: States: Unknown Family Hx - Social History Hx Tobacco Use: Yes Hx Alcohol Use: Yes Hx Substance Use: No - Immunization History Hx Tetanus Toxoid Vaccination: Yes Hx Influenza Vaccination: No Hx Pneumococcal Vaccination: No Review Of Systems Except As Marked, All Systems Reviewed And Found Negative. Constitutional: Negative for: Fever, Chills, Sweats Cardiovascular: Negative for: Chest Pain Respiratory: Negative for: Shortness of Breath Gastrointestinal: Negative for: Vomiting, Diarrhea Skin: Positive for: Other (Mass to right groin, (+) painful, (-) draining) Neurological: Negative for: Weakness, Numbness, Incoordination Physical Exam - Physical Exam Appears: Non-toxic, No Acute Distress Skin: Warm, Dry, Other (Mild swelling with erythema and tenderness to the right groin) Head: Atraumatic, Normacephalic Eye(s): bilateral: Normal Inspection, PERRL, EOMI Nose: Normal Oral Mucosa: Moist Neck: Supple Chest: Symmetrical Cardiovascular: Rhythm Regular, No Murmur Respiratory: Normal Breath Sounds, No Accessory Muscle Use Gastrointestinal/Abdominal: Soft, No Tenderness, No Distention Extremity: Bilateral: Atraumatic, Normal Color And Temperature, Normal ROM Neurological/Psych: Oriented x3, Normal Speech ED Course And Treatment - Laboratory Results Result Diagrams: 05/24/18 12:04 05/24/18 12:04 O2 Sat by Pulse Oximetry: 98 (RA) Pulse Ox Interpretation: Normal Progress Note: Blood work and urine sent. EKG ordered and reviewed. Case discussed with Dr. Siddiqui, patient admitted to his service. Patient states I always get a breathing treatment before surgeries. Requesting nebulizer treatment. Given duoneb x1. Disposition Counseled Patient/Family Regarding: Diagnosis - Disposition Disposition: HOSPITALIZED Disposition Time: 13:24 Condition: STABLE - POA Present On Arrival: None - Clinical Impression Clinical Impression: Hidradenitis suppurativa - PA / RADIO/TV TECHNICIAN / Resident Statement MD/DO has reviewed & agrees with the documentation as recorded. - Scribe Statement The provider has reviewed the documentation as recorded by the Scribe (Alisia Brennan) All medical record entries made by the Scribe were at my direction and personally dictated by me. I have reviewed the chart and agree that the record accurately reflects my personal performance of the history, physical exam, medical decision making, and the department course for this patient. I have also personally directed, reviewed, and agree with the discharge instructions and disposition. Decision To Admit - Pt Status Changed To: Hospital Disposition Of: Inpatient - Admit Certification Admit to Inpatient:: After my assessment, the patient will require hospitalization for at least two midnights. This is because of the severity of symptoms shown, intensity of services needed, and/or the medical risk in this patient being treated as an outpatient. - InPatient: Physician Admission Certification: I certify that this patient requires 2 or more midnights of care for the following reason:: will go to OR and will need IV abx - . Bed Request Type: Regular Admitting Physician: Nitish Siddiqui Patient Diagnosis: Hidradenitis suppurativa
[2018-05-24] MEDS ORDERED: Albuterol-Ipratrop 3 mg / 0.5 (3 ml) UD IH STA (13:23)
[2018-05-24] MEDS ORDERED: Propofol 10 mg/ml Inj (20 ML) ONE (15:22)
[2018-05-24] MEDS ORDERED: Midazolam 2 MG/2 ML VIAL ONE (15:22)
[2018-05-24] MEDS ORDERED: Doxycycline 100 mg Inj ONE (15:36)
[2018-05-24] MEDS ORDERED: Vancomycin 1 gm/D5W 200 ml 1 GM/200 ML BAG IVPB ONE (15:47)
[2018-05-24] MEDS ORDERED: Bacitracin Ointment 30 GM TUBE ONE (15:57)
[2018-05-24] MEDS ORDERED: DiphenhydrAMINE 50 mg/ml Inj IVP ONE (16:30)
[2018-05-24] MEDS: Oxycodone/Acetaminophen 5/325 mg Tab PO PRN (19:50)
[2018-05-24] MEDS ORDERED: Pneumococcal 23-Valent Vaccine IM ONE (20:36)
[2018-05-24] MEDS: Linezolid 600 mg in D5W 300 ml 600 MG/300 ML BAG IVPB SCH (21:51)
[2018-05-25] MEDS: Oxycodone/Acetaminophen 5/325 mg Tab PO PRN ×3 (02:01→21:03)
--- NOTE | 2018-05-25 02:20 | CP.PCM.CON ---
<Светлана Borges - Last Filed: 05/25/18 01:59> History of Present Illness - History of Present Illness History of Present Illness: cc: groin abscess Ms. Walker is a 37 year old female with PMH suppurative hydradenitis, gastritis, asthma, anxiety, bilateral inguinal abscesses, and disc herniations who returns to the hospital since being discharged on 04/30/18 for surgery for recurrent abscess. She additionally complains of intermittent shooting pain down her L buttocks, lateral and posterior thigh, calf to her toes. This has been unchanged since December when it started. It worsens to 7/10 as the day goes on, and is unable to stand for long periods of time once the pain starts. She has electively come in for surgery and does not have any additional complaints, nor any issues with her other chronic conditions. Denies chest pain, shortness of breath, dizziness, syncope, palpitations, nausea, vomiting, constipation, diarrhea, urinary frequency, urinary urgency. This will be her [address]th surgery [address] Siddiqui since December 2017 for this issue. PMH: suppurative hydradenitis, gastritis, asthma, anxiety, right and left inguinal abscesses, disc herniations PSxH: Cholecystectomy, Endoscopy, Tonsillectomy, (Myomectomy) DRAINAGE OF LEFT INGUINAL REGION, OPEN APPROACH (01/07/18) DRAINAGE OF PERINEUM SKIN, EXTERNAL APPROACH (04/19/16) DRAINAGE OF RIGHT INGUINAL REGION, OPEN APPROACH (01/07/18) EXCISION OF UTERUS, OPEN APPROACH (04/19/16) Med: Ranitidine, Protonix, Bentyl, Xyzal, Atarax, Xanax All: adhesive tape, ciprofloxacin, ciprofloxacin HCl, levaquin, bactrim OB: uterine fibroid removal SocHx: Tobacco- 14 years, 3 days/pack; drinks socially 5 drinks per event; Drugs :smokes marijuana joint; lives at home with sister and nieces/nephews; works at an [employer] FamHx: non-contributory PMD: Dr. Diehl Full Code Review of Systems - Constitutional Constitutional: Lethargy, Malaise. absent: Anorexia, Fever - EENT Eyes: absent: Blurred Vision, Diplopia, Sees Flashes Ears: absent: Decreased Hearing, Tinnitus Nose/Mouth/Throat: absent: Nasal Congestion, Nasal Discharge - Cardiovascular Cardiovascular: absent: Chest Pain, Edema - Respiratory Respiratory: absent: Cough, Wheezing, Chest Congestion - Gastrointestinal Gastrointestinal: absent: Cramping, Diarrhea, Nausea, Vomiting - Genitourinary Genitourinary: absent: Change in Urinary Stream, Urinary Incontinence, Urinary Hesitance - Musculoskeletal Musculoskeletal: Muscle Weakness, Tingling. absent: Back Pain, Joint Swelling, Numbness - Integumentary Integumentary: absent: Lesions, Rash - Neurological Neurological: Tingling. absent: Burning Sensations, Numbness, Headaches - Psychiatric Psychiatric: absent: Confusion, Depression - Endocrine Endocrine: absent: Cold Intolorance, Heat Intolorance - Hematologic/Lymphatic Hematologic: absent: Easy Bleeding, Easy Bruising Past Patient History - Infectious Disease Hx of Infectious Diseases: None - Past Medical History & Family History Past Medical History?: Yes Past Family History: Reviewed and not pertinent - Past Social History Smoking Status: Smoker Currrent Status Unknown Alcohol: Social Drugs: Cannabis - CARDIAC Hx Cardiac Disorders: No - PULMONARY Hx Asthma: Yes Hx Pneumonia: Yes (. 2016) - NEUROLOGICAL Hx Neurological Disorder: No - HEENT Hx HEENT Problems: No - RENAL Hx Chronic Kidney Disease: No - ENDOCRINE/METABOLIC Hx Endocrine Disorders: No - HEMATOLOGICAL/ONCOLOGICAL Hx Blood Disorders: No - INTEGUMENTARY Hx Dermatological Problems: Yes Other/Comment: HX: MASS RIGHT GROIN - MUSCULOSKELETAL/RHEUMATOLOGICAL Hx Falls: No - GASTROINTESTINAL Hx Gall Bladder Disease: Yes Hx Gastritis: Yes - GENITOURINARY/GYNECOLOGICAL Hx Genitourinary Disorders: Yes Hx Reproductive Disorders: Yes Other/Comment: HX: FIBROID UTERUS - PSYCHIATRIC Hx Anxiety: Yes Hx Substance Use: No - SURGICAL HISTORY Hx Cholecystectomy: Yes Hx Tonsillectomy: Yes - ANESTHESIA Hx Anesthesia: Yes Hx Anesthesia Reactions: No Hx Malignant Hyperthermia: No Meds Allergies/Adverse Reactions: Allergies Allergy/AdvReac Type Severity Reaction Status Date / Time adhesive tape Allergy Severe RASH Verified 05/24/18 11:10 ciprofloxacin [From Cipro] Allergy Intermediate RASH Verified 05/24/18 11:10 ciprofloxacin HCl Allergy Intermediate RASH Verified 05/24/18 11:10 [From Cipro] hydromorphone HCl Allergy Intermediate RASH Verified 05/24/18 11:10 [From Dilaudid] Penicillins Allergy Intermediate RASH Verified 05/24/18 11:10 shrimp Allergy Intermediate RASH Verified 05/24/18 11:10 sulfamethoxazole Allergy Intermediate RASH Verified 05/24/18 11:10 [From Bactrim] trimethoprim [From Bactrim] Allergy Intermediate RASH Verified 05/24/18 11:10 levofloxacin [From Levaquin] Allergy Verified 05/24/18 11:10 doxycycline AdvReac RASH, Verified 05/24/18 11:10 ITCHINESS, THROAT SWELLING - Medications Medications: Current Medications Alprazolam (Xanax) 1 mg PO BID PRN PRN Reason: Anxiety Dicyclomine HCl (Bentyl) 10 mg PO Q6 ON LICENSE OF [facility] Docusate Sodium (Colace) 100 mg PO BID ON LICENSE OF [facility] Last Admin: 05/24/18 21:53 Dose: 100 mg Enoxaparin Sodium (Lovenox) 40 mg SC DAILY ON LICENSE OF [facility] Home Med (Levocetirizine Dihydrochloride [Xyzal]) 5 mg PO DAILY ON LICENSE OF [facility] Hydroxyzine HCl (Atarax) 50 mg PO Q8 PRN PRN Reason: Allergy symptoms Linezolid (Zyvox 600mg/300ml D5w) 600 mg in 300 mls @ 200 mls/hr IVPB Q12H ON LICENSE OF [facility] PRN Reason: Protocol Last Admin: 05/24/18 21:51 Dose: 200 mls/hr Ketorolac Tromethamine (Toradol) 30 mg IVP Q6 PRN PRN Reason: pain 8-10 Stop: 05/29/18 16:22 Oxycodone/Acetaminophen (Percocet 5/325 Mg Tab) 2 tab PO Q4H PRN PRN Reason: pain Stop: 05/27/18 16:22 Last Admin: 05/24/18 19:50 Dose: 2 tab Pantoprazole Sodium (Protonix Inj) 40 mg IVP DAILY ON LICENSE OF [facility] Ranitidine HCl (Zantac Soln 5ml) 150 mg PO BID ON LICENSE OF [facility] Physical Exam - Constitutional Appears: Non-toxic, No Acute Distress - Head Exam Head Exam: ATRAUMATIC, NORMOCEPHALIC - Eye Exam Eye Exam: EOMI, Normal appearance - ENT Exam ENT Exam: Mucous Membranes Moist, Normal Exam - Respiratory Exam Respiratory Exam: Clear to Auscultation Bilateral, NORMAL BREATHING PATTERN. absent: Rales, Rhonchi, Wheezes - Cardiovascular Exam Cardiovascular Exam: REGULAR RHYTHM, +S1, +S2. absent: Tachycardia, Systolic Murmur - GI/Abdominal Exam GI & Abdominal Exam: Normal Bowel Sounds, Soft. absent: Tenderness - Exam Additional comments: multiple inguinal abscesses bilaterally, unable to visualize as they were covered by gauze and tegederm, dressings c/d/i visualized previous I&D'd abscesses healing well - Extremities Exam Extremities exam: Positive for: full ROM, normal capillary refill, normal inspection, pedal pulses present Additional comments: SLR and WLR negative. unable to reproduce pain on exam peripheral pulses palpable bilaterally (radial, PT) - Neurological Exam Neurological exam: Alert, CN II-XII Intact, Oriented x3 - Psychiatric Exam Psychiatric exam: Normal Affect, Normal Mood - Skin Skin Exam: Dry, Intact, Normal Color, Warm Results - Vital Signs Recent Vital Signs: Last Vital Signs Temp 98.5 F 05/25/18 00:18 Pulse 63 05/25/18 00:18 Resp 20 05/25/18 00:18 BP 105/67 05/25/18 00:18 Pulse Ox 98 05/25/18 00:18 - Labs Result Diagrams: 05/24/18 12:04 05/24/18 12:04 Labs: Laboratory Results - last 24 hr 05/24/18 05/24/18 05/24/18 12:04 12:04 12:04 WBC 5.6 RBC 3.44 L Hgb 10.7 L Hct 30.9 L MCV 89.8 MCH 31.0 MCHC 34.5 RDW 14.1 Plt Count 297 MPV 8.1 Neut % (Auto) 47.3 L Lymph % (Auto) 41.4 H [place] % (Auto) 7.6 Eos % (Auto) 2.6 Baso % (Auto) 1.1 Neut # (Auto) 2.6 Lymph # (Auto) 2.3 [place] # (Auto) 0.4 Eos # (Auto) 0.1 Baso # (Auto) 0.1 PT 10.3 INR 0.9 APTT 33 Sodium Potassium Chloride Carbon Dioxide Anion Gap BUN Creatinine Est GFR ( Amer) Est GFR (Non-Af Amer) Random Glucose Calcium Total Bilirubin AST ALT Alkaline Phosphatase Total Protein Albumin Globulin Albumin/Globulin Ratio Urine Color Straw Urine Clarity Clear Urine pH 6.0 Ur Specific Colman 1.006 Urine Protein Negative Urine Glucose (UA) Normal Urine Ketones Negative Urine Blood Negative Urine Nitrate Negative Urine Bilirubin Negative Urine Urobilinogen Normal Ur Leukocyte Esterase Neg Urine WBC (Auto) < 1 Urine RBC (Auto) < 1 Ur Squamous Epith Cells 1 Urine HCG, Qual Negative 05/24/18 12:04 WBC RBC Hgb Hct MCV MCH MCHC RDW Plt Count MPV Neut % (Auto) Lymph % (Auto) [place] % (Auto) Eos % (Auto) Baso % (Auto) Neut # (Auto) Lymph # (Auto) [place] # (Auto) Eos # (Auto) Baso # (Auto) PT INR APTT Sodium 139 Potassium 4.1 Chloride 108 H Carbon Dioxide 22 Anion Gap 13 BUN 9 Creatinine 0.7 Est GFR ( Amer) > 60 Est GFR (Non-Af Amer) > 60 Random Glucose 98 Calcium 9.2 Total Bilirubin 0.4 AST 23 ALT 28 Alkaline Phosphatase 64 Total Protein 8.0 Albumin 4.4 Globulin 3.6 Albumin/Globulin Ratio 1.2 Urine Color Urine Clarity Urine pH Ur Specific Colman Urine Protein Urine Glucose (UA) Urine Ketones Urine Blood Urine Nitrate Urine Bilirubin Urine Urobilinogen Ur Leukocyte Esterase Urine WBC (Auto) Urine RBC (Auto) Ur Squamous Epith Cells Urine HCG, Qual Assessment & Plan - Assessment and Plan (Free Text) Assessment: 37yoF PMH suppurative hydradenitis, gastritis, asthma, anxiety, bilateral inguinal abscesses, disc herniation admitted for elective surgery of inguinal abscesses. Plan: 1) Bilateral groin abscesses - for OR with Dr. Artur Montemayor 05/28, NPO @ midnight Mon 05/27 - per Surgeon: - Colace 100mg po bid - Toradol 30mg IVP q6 prn - Percoset 2 tab po q4 prn - antibiotics per ID: Dr. Tenorio covering for Dr. Gastelum: Linezolid 600mg IVPB q12 - groin wound last admission grew Acinetobacter Baumannii, previous admissions' groin wound cultures have grown E. Coli and Proteus Mirabilis 2) Chronic Diarrhea - Cont Home Bentyl 10mg po q6 3) Pruritus/Seasonal Allergies - not currently complaining of any issues - Cont Home Atarax 50mg po q8 - Cont Home Xyzal 5 mg po daily 4) Anxiety - Cont Home Xanax 1mg po bid 5) Hx of Disc herniation - supportive care - encourage proper posture - consider PT after procedure 6) PPx - DVT: per Surgery: Lovenox 40mg SC daily - GI: Cont Home Protonix 40mg po daily, Cont Home Ranitidine 150mg po bid - Florastor 250mg po bid d/w Dr. Penny Borges PGY-1 - Date & Time Date: 05/25/18 Time: 23:50 <Efren Francis - Last Filed: 05/25/18 06:31> Meds - Medications Medications: Current Medications Alprazolam (Xanax) 1 mg PO BID PRN PRN Reason: Anxiety Last Admin: 05/25/18 03:00 Dose: 1 mg Dicyclomine HCl (Bentyl) 10 mg PO Q6 [facility] Docusate Sodium (Colace) 100 mg PO BID ON LICENSE OF [facility] Last Admin: 05/24/18 21:53 Dose: 100 mg Enoxaparin Sodium (Lovenox) 40 mg SC DAILY ON LICENSE OF [facility] Home Med (Levocetirizine Dihydrochloride [Xyzal]) 5 mg PO DAILY ON LICENSE OF [facility] Hydroxyzine HCl (Atarax) 50 mg PO Q8 PRN PRN Reason: Allergy symptoms Linezolid (Zyvox 600mg/300ml D5w) 600 mg in 300 mls @ 200 mls/hr IVPB Q12H [facility] PRN Reason: Protocol Last Admin: 05/24/18 21:51 Dose: 200 mls/hr Ketorolac Tromethamine (Toradol) 30 mg IVP Q6 PRN PRN Reason: pain 8-10 Stop: 05/29/18 16:22 Oxycodone/Acetaminophen (Percocet 5/325 Mg Tab) 2 tab PO Q4H PRN PRN Reason: pain Stop: 05/27/18 16:22 Last Admin: 05/25/18 02:01 Dose: 2 tab Pantoprazole Sodium (Protonix Inj) 40 mg IVP DAILY ON [facility] OF [facility] Ranitidine HCl (Zantac Soln 5ml) 150 mg PO BID ON LICENSE OF [facility] Saccharomyces Boulardii (Florastor) 250 mg PO BID ON LICENSE OF [facility] Results - Vital Signs Recent Vital Signs: Last Vital Signs Temp 98.5 F 05/25/18 00:18 Pulse 63 05/25/18 00:18 Resp 20 05/25/18 00:18 BP 105/67 05/25/18 00:18 Pulse Ox 98 05/25/18 00:18 - Labs Result Diagrams: 05/24/18 12:04 05/24/18 12:04 Labs: Laboratory Results - last 24 hr 05/24/18 05/24/18 05/24/18 12:04 12:04 12:04 WBC 5.6 RBC 3.44 L Hgb 10.7 L Hct 30.9 L MCV 89.8 MCH 31.0 MCHC 34.5 RDW 14.1 Plt Count 297 MPV 8.1 Neut % (Auto) 47.3 L Lymph % (Auto) 41.4 H [place] % (Auto) 7.6 Eos % (Auto) 2.6 Baso % (Auto) 1.1 Neut # (Auto) 2.6 Lymph # (Auto) 2.3 [place] # (Auto) 0.4 Eos # (Auto) 0.1 Baso # (Auto) 0.1 PT 10.3 INR 0.9 APTT 33 Sodium Potassium Chloride Carbon Dioxide Anion Gap BUN Creatinine Est GFR ( Amer) Est GFR (Non-Af Amer) Random Glucose Calcium Total Bilirubin AST ALT Alkaline Phosphatase Total Protein Albumin Globulin Albumin/Globulin Ratio Urine Color Straw Urine Clarity Clear Urine pH 6.0 Ur Specific Colman 1.006 Urine Protein Negative Urine Glucose (UA) Normal Urine Ketones Negative Urine Blood Negative Urine Nitrate Negative Urine Bilirubin Negative Urine Urobilinogen Normal Ur Leukocyte Esterase Neg Urine WBC (Auto) < 1 Urine RBC (Auto) < 1 Ur Squamous Epith Cells 1 Urine HCG, Qual Negative 05/24/18 12:04 WBC RBC Hgb Hct MCV MCH MCHC RDW Plt Count MPV Neut % (Auto) Lymph % (Auto) [place] % (Auto) Eos % (Auto) Baso % (Auto) Neut # (Auto) Lymph # (Auto) [place] # (Auto) Eos # (Auto) Baso # (Auto) PT INR APTT Sodium 139 Potassium 4.1 Chloride 108 H Carbon Dioxide 22 Anion Gap 13 BUN 9 Creatinine 0.7 Est GFR ( Amer) > 60 Est GFR (Non-Af Amer) > 60 Random Glucose 98 Calcium 9.2 Total Bilirubin 0.4 AST 23 ALT 28 Alkaline Phosphatase 64 Total Protein 8.0 Albumin 4.4 Globulin 3.6 Albumin/Globulin Ratio 1.2 Urine Color Urine Clarity Urine pH Ur Specific Colman Urine Protein Urine Glucose (UA) Urine Ketones Urine Blood Urine Nitrate Urine Bilirubin Urine Urobilinogen Ur Leukocyte Esterase Urine WBC (Auto) Urine RBC (Auto) Ur Squamous Epith Cells Urine HCG, Qual Assessment & Plan - Date & Time Date: 05/25/18 (I have seen and examined the patient. I agree with the findings and plan of care as documented by Dr. Borges. Patient with groin abscesses to be managed by admitting surgeon. ID consulted. Linezolid. Continue home meds for history of chronic diarrhea and anxiety. Monitor for acute changes.) Time: 06:30 Attending/Attestation - Attestation I have personally seen and examined this patient.: Yes I have fully participated in the care of the patient.: Yes I have reviewed all pertinent clinical information: Yes
--- NOTE | 2018-05-25 05:46 | OP ---
Copied To: Nitish Siddiqui MD Attending MD: Nitish Siddiqui MD PROCEDURE DATE: 05/24/2018 PREOPERATIVE DIAGNOSIS: Bilateral infected groin masses and a second mass at the right thigh. POSTOPERATIVE DIAGNOSIS: Bilateral infected groin masses and a second mass at the right thigh. PROCEDURE PERFORMED: Wide deep excision bilateral infected groin masses and mass at the right thigh. SURGEON: Nitish Siddiqui MD ANESTHESIA: General. BLOOD LOSS: 30 mL. POSTOP CONDITION: Stable. INDICATIONS FOR SURGERY: This is a 37-year-old female with continued chronic contractions in the groin, infected masses and abscess. We admitted for final treatment including excision of infected groin cyst and masses followed by wide excision of a pubic hair, which will be done in the staged procedure. DESCRIPTION OF PROCEDURE: The patient taken to the operating room, general anesthesia was administered. Both groins in the right thigh were prepped and draped. Attention was first turned to the right thigh where a transelliptical incision was made of a mass and carried down deep into the subcutaneous tissue. Bleeding was controlled using a Bovie. The wound was irrigated with saline. with full thickness tissue flaps counter incisions were made and a adjacent tissue transfer closure was performed with multiple layers of Monocryl, subcuticular Monocryl. Attention was then turned to the groin, both masses were excised via elliptical incisions down into the fascial layer. Previously irrigated with saline and packed open. The patient tolerated the procedure well. Returned to recovery room in stable condition. Nitish Siddiqui MD
[2018-05-25 07:36] LABS: BASO # 0.1 K/uL (0.0-0.2); BASO % 1.1 % (0.0-2.0); EOS # 0.2 K/uL (0.0-0.7); EOS % 3.5 % (0.0-4.0); LYMPH # 2.8 K/uL (1.0-4.3); LYMPH % 48.2 % (20.0-40.0); MEAN CELL VOLUME 90.7 fL (81.0-99.0); MEAN CORPUSCULAR HEMOGLOBIN 30.5 pg (27.0-31.0); MEAN CORPUSCULAR HGB CONC 33.7 g/dL (33.0-37.0); MEAN PLATELET VOLUME 8.3 fL (7.2-11.7); MONO # 0.4 K/uL (0.0-0.8); MONO % 6.7 % (0.0-10.0); NEUT # 2.4 K/uL (1.8-7.0); NEUT % 40.5 % (50.0-75.0); NRBC % 0.1 % (0.0-2.0); RBC 2.94 Mil/uL (3.80-5.20); RED CELL DISTRIBUTION WIDTH 13.8 % (11.5-14.5); WHITE BLOOD COUNT 5.9 K/uL (4.8-10.8)
[2018-05-25 07:56] LABS: ALBUMIN 2.9 g/dL (3.5-5.0); ALT/SGPT 26 U/L (9-52); AST/SGOT 15 U/L (14-36); BLOOD UREA NITROGEN 16 mg/dL (7-17); CALCIUM 8.2 mg/dl (8.6-10.4); GFR NON-AFRICAN AMERICAN > 60
[2018-05-25] MEDS: Enoxaparin 40 mg Syringe SC SCH (10:00)
[2018-05-25] MEDS: Saccharomyces Boulardi 250 mg Cap PO SCH ×2 (10:00→18:15)
[2018-05-25] MEDS: Linezolid 600 mg in D5W 300 ml 600 MG/300 ML BAG IVPB SCH ×2 (10:05→21:08)
[2018-05-25] MEDS: raNITIdine HCl 150 mg/10 ml Soln Cup PO SCH ×2 (10:15→18:16)
--- NOTE | 2018-05-25 10:24 | CP.PCM.PN ---
Subjective - Date & Time of Evaluation Date of Evaluation: 05/25/18 Time of Evaluation: 09:00 - Subjective Subjective: Medicine Progress Note: Patient was seen and examined at bedside in the AM. Patient states she still has some pain in her groin area after the surgery. She states she is going to have another procedure on Sunday. She also states she is feeling a bit anxious due to her neighbors she is sharing the room with. She denies shortness of breath, chest pain, palpitations, nausea or vomiting. Objective - Vital Signs/Intake and Output Vital Signs (last 24 hours): Temp Pulse Resp BP Pulse Ox 98.6 F 89 20 105/67 98 05/25/18 08:00 05/25/18 08:00 05/25/18 08:00 05/25/18 00:18 05/25/18 08:00 Intake and Output: 05/25/18 05/25/18 06:59 18:59 Intake Total 400 Output Total 200 Balance 200 - Medications Medications: Current Medications Alprazolam (Xanax) 1 mg PO BID PRN PRN Reason: Anxiety Last Admin: 05/25/18 03:00 Dose: 1 mg Dicyclomine HCl (Bentyl) 10 mg PO Q6 [facility] Last Admin: 05/25/18 07:02 Dose: Not Given Docusate Sodium (Colace) 100 mg PO BID [facility] Last Admin: 05/25/18 10:00 Dose: 100 mg Enoxaparin Sodium (Lovenox) 40 mg SC DAILY [facility] Last Admin: 05/25/18 10:00 Dose: 40 mg Home Med (Levocetirizine Dihydrochloride [Xyzal]) 5 mg PO DAILY [facility] Hydroxyzine HCl (Atarax) 50 mg PO Q8 PRN PRN Reason: Allergy symptoms Last Admin: 05/25/18 10:01 Dose: 50 mg Linezolid (Zyvox 600mg/300ml D5w) 600 mg in 300 mls @ 200 mls/hr IVPB Q12H [facility] PRN Reason: Protocol Last Admin: 05/25/18 10:05 Dose: 200 mls/hr Ketorolac Tromethamine (Toradol) 30 mg IVP Q6 PRN PRN Reason: pain 8-10 Stop: 05/29/18 16:22 Oxycodone/Acetaminophen (Percocet 5/325 Mg Tab) 2 tab PO Q4H PRN PRN Reason: pain Stop: 05/27/18 16:22 Last Admin: 05/25/18 02:01 Dose: 2 tab Pantoprazole Sodium (Protonix Inj) 40 mg IVP DAILY [facility] Last Admin: 05/25/18 10:00 Dose: 40 mg Ranitidine HCl (Zantac Soln 5ml) 150 mg PO BID [facility] Last Admin: 05/25/18 10:15 Dose: 150 mg Saccharomyces Boulardii (Florastor) 250 mg PO BID [facility] Last Admin: 05/25/18 10:00 Dose: 250 mg - Labs Labs: 05/25/18 07:09 05/25/18 07:09 PT 10.3 SECONDS (9.7-12.2) 05/24/18 12:04 INR 0.9 05/24/18 12:04 APTT 33 SECONDS (21-34) 05/24/18 12:04 - Constitutional Appears: No Acute Distress - Head Exam Head Exam: ATRAUMATIC, NORMAL INSPECTION - Eye Exam Eye Exam: EOMI, Normal appearance - ENT Exam ENT Exam: Mucous Membranes Moist - Respiratory Exam Respiratory Exam: Clear to Ausculation Bilateral, NORMAL BREATHING PATTERN - Cardiovascular Exam Cardiovascular Exam: REGULAR RHYTHM, +S1, +S2 - GI/Abdominal Exam GI & Abdominal Exam: Soft, Normal Bowel Sounds. absent: Tenderness - Exam Additional comments: multiple inguinal abscesses bilaterally, unable to visualize as they were covered by gauze and tegederm, dressings c/d/i visualized previous I&D'd abscesses healing well - Extremities Exam Extremities Exam: Normal Capillary Refill, Normal Inspection. absent: Pedal Edema, Tenderness - Neurological Exam Neurological Exam: Alert, Awake, Oriented x3 - Psychiatric Exam Psychiatric exam: Anxious - Skin Skin Exam: Normal Color Assessment and Plan - Assessment and Plan (Free Text) Assessment: 37 year old female with past medical history of suppurative hydradenitis, gastritis, asthma, anxiety, bilateral inguinal abscesses, disc herniation admitted for elective surgery of inguinal abscesses. Bilateral groin abscesses - for OR with Dr. Artur Montemayor 05/28, NPO @ midnight Mon 05/27 - s/p (05/24/18) wide excision of infected bilateral mass of groin and right thigh - per Dr. Siddiqui: - Colace 100mg po bid - Toradol 30mg IVP q6 prn - Percoset 2 tab po q4 prn - antibiotics per ID: Dr. Tenorio covering for Dr. Gastelum: Linezolid 600mg IVPB q12 - groin wound last admission grew Acinetobacter Baumannii, previous admissions' groin wound cultures have grown E. Coli and Proteus Mirabilis - blood culture (05/24/18): no growth - preliminary Chronic Diarrhea - Continue Home Bentyl 10mg po q6 Pruritus/Seasonal Allergies - Continue Home Atarax 50mg po q8 - Continue Home Xyzal 5 mg po daily History of Anxiety - Continue Home Xanax 1mg po bid History of Disc herniation - supportive care - encourage proper posture - consider PT after procedure Prophylaxis - DVT: per Surgery: Lovenox 40mg SC daily - GI: Cont Home Protonix 40mg po daily, Cont Home Ranitidine 150mg po bid - Florastor 250mg po bid Case discussed with Dr. Ulisses Kam PGY-2
--- NOTE | 2018-05-25 22:50 | CP.PCM.CON ---
History of Present Illness - History of Present Illness History of Present Illness: dictated Past Patient History - Infectious Disease Hx of Infectious Diseases: None - Past Medical History & Family History Past Medical History?: Yes Past Family History: Reviewed and not pertinent - Past Social History Smoking Status: Smoker Currrent Status Unknown Alcohol: Social Drugs: Cannabis - CARDIAC Hx Cardiac Disorders: No - PULMONARY Hx Asthma: Yes Hx Pneumonia: Yes (2016) - NEUROLOGICAL Hx Neurological Disorder: No - HEENT Hx HEENT Problems: No - RENAL Hx Chronic Kidney Disease: No - ENDOCRINE/METABOLIC Hx Endocrine Disorders: No - HEMATOLOGICAL/ONCOLOGICAL Hx Blood Disorders: No - INTEGUMENTARY Hx Dermatological Problems: Yes Other/Comment: HX: MASS RIGHT GROIN - MUSCULOSKELETAL/RHEUMATOLOGICAL Hx Falls: No - GASTROINTESTINAL Hx Gall Bladder Disease: Yes Hx Gastritis: Yes - GENITOURINARY/GYNECOLOGICAL Hx Genitourinary Disorders: Yes Hx Reproductive Disorders: Yes Other/Comment: HX: FIBROID UTERUS - PSYCHIATRIC Hx Anxiety: Yes Hx Substance Use: No - SURGICAL HISTORY Hx Cholecystectomy: Yes Hx Tonsillectomy: Yes - ANESTHESIA Hx Anesthesia: Yes Hx Anesthesia Reactions: No Hx Malignant Hyperthermia: No Meds Allergies/Adverse Reactions: Allergies Allergy/AdvReac Type Severity Reaction Status Date / Time adhesive tape Allergy Severe RASH Verified 05/24/18 11:10 ciprofloxacin [From Cipro] Allergy Intermediate RASH Verified 05/24/18 11:10 ciprofloxacin HCl Allergy Intermediate RASH Verified 05/24/18 11:10 [From Cipro] hydromorphone HCl Allergy Intermediate RASH Verified 05/24/18 11:10 [From Dilaudid] Penicillins Allergy Intermediate RASH Verified 05/24/18 11:10 shrimp Allergy Intermediate RASH Verified 05/24/18 11:10 sulfamethoxazole Allergy Intermediate RASH Verified 05/24/18 11:10 [From Bactrim] trimethoprim [From Bactrim] Allergy Intermediate RASH Verified 05/24/18 11:10 levofloxacin [From Levaquin] Allergy Verified 05/24/18 11:10 doxycycline AdvReac RASH, Verified 05/24/18 11:10 ITCHINESS, THROAT SWELLING - Medications Medications: Current Medications Alprazolam (Xanax) 1 mg PO BID PRN PRN Reason: Anxiety Last Admin: 05/25/18 13:59 Dose: 1 mg Dicyclomine HCl (Bentyl) 10 mg PO Q6 [facility] Last Admin: 05/25/18 18:16 Dose: 10 mg Docusate Sodium (Colace) 100 mg PO BID [facility] Last Admin: 05/25/18 18:15 Dose: 100 mg Enoxaparin Sodium (Lovenox) 40 mg SC DAILY [facility] Last Admin: 05/25/18 10:00 Dose: 40 mg Home Med (Levocetirizine Dihydrochloride [Xyzal]) 5 mg PO DAILY [facility] Hydroxyzine HCl (Atarax) 50 mg PO Q8 PRN PRN Reason: Allergy symptoms Last Admin: 05/25/18 21:01 Dose: 50 mg Linezolid (Zyvox 600mg/300ml D5w) 600 mg in 300 mls @ 200 mls/hr IVPB Q12H [facility] PRN Reason: Protocol Last Admin: 05/25/18 21:08 Dose: 200 mls/hr Ketorolac Tromethamine (Toradol) 30 mg IVP Q6 PRN PRN Reason: pain 8-10 Stop: 05/29/18 16:22 Oxycodone/Acetaminophen (Percocet 5/325 Mg Tab) 2 tab PO Q4H PRN PRN Reason: pain Stop: 05/27/18 16:22 Last Admin: 05/25/18 21:03 Dose: 2 tab Pantoprazole Sodium (Protonix Inj) 40 mg IVP DAILY [facility] Last Admin: 05/25/18 10:00 Dose: 40 mg Ranitidine HCl (Zantac Soln 5ml) 150 mg PO BID [facility] Last Admin: 05/25/18 18:16 Dose: 150 mg Saccharomyces Boulardii (Florastor) 250 mg PO BID [facility] Last Admin: 05/25/18 18:15 Dose: 250 mg Results - Vital Signs Recent Vital Signs: Last Vital Signs Temp 97.9 F 05/25/18 16:39 Pulse 67 05/25/18 16:39 Resp 20 05/25/18 16:39 BP 96/60 L 05/25/18 16:39 Pulse Ox 100 05/25/18 16:39 - Labs Result Diagrams: 05/25/18 07:09 05/25/18 07:09 Labs: Laboratory Results - last 24 hr 05/25/18 05/25/18 07:09 07:09 WBC 5.9 RBC 2.94 L Hgb 9.0 L Hct 26.7 L MCV 90.7 MCH 30.5 MCHC 33.7 RDW 13.8 Plt Count 241 MPV 8.3 Neut % (Auto) 40.5 L Lymph % (Auto) 48.2 H [place] % (Auto) 6.7 Eos % (Auto) 3.5 Baso % (Auto) 1.1 Neut # (Auto) 2.4 Lymph # (Auto) 2.8 [place] # (Auto) 0.4 Eos # (Auto) 0.2 Baso # (Auto) 0.1 Sodium 137 Potassium 4.0 Chloride 107 Carbon Dioxide 22 Anion Gap 12 BUN 16 Creatinine 1.0 Est GFR ( Amer) > 60 Est GFR (Non-Af Amer) > 60 Random Glucose 95 Calcium 8.2 L Total Bilirubin 0.3 AST 15 ALT 26 Alkaline Phosphatase 48 Total Protein 5.9 L Albumin 2.9 L D Globulin 2.9 Albumin/Globulin Ratio 1.0
--- NOTE | 2018-05-26 04:00 | CP.PCM.PN ---
Subjective - Date & Time of Evaluation Date of Evaluation: 05/26/18 Time of Evaluation: 03:57 - Subjective Subjective: PGY-1 Medicine Progress note for Hospitalist Patient was seen and examined at bedside in no acute distress. Nurse reports no overnight events. Patient reports lack of sleep due to her neighbor she shares the room with had visitors all day, well after visiting hours. There is still some soreness in her groin after the surgery and is anxious to have Sunday's procedure behind her. Denies chest pain, shortness of breath, abdominal pain, nausea, vomiting. Objective - Vital Signs/Intake and Output Vital Signs (last 24 hours): Temp Pulse Resp BP Pulse Ox 98.3 F 74 20 104/68 98 05/25/18 23:19 05/25/18 23:19 05/25/18 23:19 05/25/18 23:19 05/25/18 23:19 Intake and Output: 05/25/18 05/26/18 18:59 06:59 Intake Total 500 Balance 500 - Medications Medications: Current Medications Alprazolam (Xanax) 1 mg PO BID PRN PRN Reason: Anxiety Last Admin: 05/26/18 00:51 Dose: 1 mg Dicyclomine HCl (Bentyl) 10 mg PO Q6 [facility] Last Admin: 05/26/18 00:47 Dose: 10 mg Docusate Sodium (Colace) 100 mg PO BID [facility] Last Admin: 05/25/18 18:15 Dose: 100 mg Enoxaparin Sodium (Lovenox) 40 mg SC DAILY [facility] Last Admin: 05/25/18 10:00 Dose: 40 mg Home Med (Levocetirizine Dihydrochloride [Xyzal]) 5 mg PO DAILY [facility] Hydroxyzine HCl (Atarax) 50 mg PO Q8 PRN PRN Reason: Allergy symptoms Last Admin: 05/25/18 21:01 Dose: 50 mg Linezolid (Zyvox 600mg/300ml D5w) 600 mg in 300 mls @ 200 mls/hr IVPB Q12H [facility] PRN Reason: Protocol Last Admin: 05/25/18 21:08 Dose: 200 mls/hr Ketorolac Tromethamine (Toradol) 30 mg IVP Q6 PRN PRN Reason: pain 8-10 Stop: 05/29/18 16:22 Last Admin: 05/26/18 00:42 Dose: 30 mg Oxycodone/Acetaminophen (Percocet 5/325 Mg Tab) 2 tab PO Q4H PRN PRN Reason: pain Stop: 05/27/18 16:22 Last Admin: 05/25/18 21:03 Dose: 2 tab Pantoprazole Sodium (Protonix Inj) 40 mg IVP DAILY [facility] Last Admin: 05/25/18 10:00 Dose: 40 mg Ranitidine HCl (Zantac Soln 5ml) 150 mg PO BID [facility] Last Admin: 05/25/18 18:16 Dose: 150 mg Saccharomyces Boulardii (Florastor) 250 mg PO BID [facility] Last Admin: 05/25/18 18:15 Dose: 250 mg - Labs Labs: 05/25/18 07:09 05/25/18 07:09 PT 10.3 SECONDS (9.7-12.2) 05/24/18 12:04 INR 0.9 05/24/18 12:04 APTT 33 SECONDS (21-34) 05/24/18 12:04 - Constitutional Appears: No Acute Distress, Chronically Ill - Head Exam Head Exam: ATRAUMATIC, NORMOCEPHALIC - Eye Exam Eye Exam: EOMI, Normal appearance - ENT Exam ENT Exam: Mucous Membranes Moist, Normal Exam - Respiratory Exam Respiratory Exam: Clear to Ausculation Bilateral, NORMAL BREATHING PATTERN. absent: Rales, Rhonchi, Wheezes - Cardiovascular Exam Cardiovascular Exam: REGULAR RHYTHM, +S1, +S2. absent: Murmur - GI/Abdominal Exam GI & Abdominal Exam: Soft, Normal Bowel Sounds. absent: Tenderness - Exam Additional comments: multiple inguinal abscesses bilaterally, unable to visualize as they were covered by gauze and tegederm, dressings c/d/i visualized previous I&D'd abscesses healing well - Extremities Exam Extremities Exam: Normal Capillary Refill. absent: Tenderness - Neurological Exam Neurological Exam: Alert, Awake, Oriented x3 - Psychiatric Exam Psychiatric exam: Agitated, Anxious - Skin Skin Exam: Dry, Intact, Warm Assessment and Plan - Assessment and Plan (Free Text) Assessment: 37 year old female with past medical history of suppurative hydradenitis, gastritis, asthma, anxiety, bilateral inguinal abscesses, disc herniation admitted for elective surgery of inguinal abscesses. Plan: Bilateral groin abscesses - for OR with Dr. Artur Montemayor 05/28, NPO @ midnight Mon 05/27 - s/p (05/24/18) wide excision of infected bilateral mass of groin and right thigh - per Dr. Siddiqui: - Colace 100mg po bid - Toradol 30mg IVP q6 prn - Percoset 2 tab po q4 prn - antibiotics per ID: Dr. Tenorio covering for Dr. Gastelum: Linezolid 600mg IVPB q12 - groin wound last admission grew Acinetobacter Baumannii, previous admissions' groin wound cultures have grown E. Coli and Proteus Mirabilis - blood culture (05/24/18): no growth - preliminary Chronic Diarrhea - Continue Home Bentyl 10mg po q6 Pruritus/Seasonal Allergies - Continue Home Atarax 50mg po q8 - Continue Home Xyzal 5 mg po daily History of Anxiety - Continue Home Xanax 1mg po bid History of Disc herniation - supportive care - encourage proper posture - consider PT after procedure Prophylaxis - DVT: per Surgery: Lovenox 40mg SC daily - GI: Cont Home Protonix 40mg po daily, Cont Home Ranitidine 150mg po bid - Florastor 250mg po bid will d/w Dr. Ulisses Borges PGY-1
[2018-05-26] MEDS: Oxycodone/Acetaminophen 5/325 mg Tab PO PRN ×4 (05:40→20:33)
--- NOTE | 2018-05-26 05:54 | CON ---
Copied To: Karlee Tenorio MD Attending MD: Karlee Tenorio MD DATE: 05/25/2018 HISTORY OF PRESENT ILLNESS: The patient was seen this evening. This patient is a 37-year-old female who has had history of hidradenitis suppurativa, and she had a surgery three weeks ago. Now again comes in with pain and swelling in the groin area, mostly on the right side. did some surgery and will need some more surgery and was referred to be admitted. She was having some pain, but she denied any drainage. She is afebrile and was seen by the medical team, and consult was called for Infectious Disease. She has had hidradenitis suppurativa, gastritis, asthma, anxiety. She also has inguinal abscesses. She previously was admitted on 04/30/2018 for surgery and for recurrent abscesses and now has intermittent shooting pain on her left buttock. She underwent another surgery this time. I was called in for managing the antibiotics. She has multiple drug allergies and surgical history of drainage many times. She says she has been at least five times for the drainage. ALLERGIES: SHE IS ALLERGIC TO ADHESIVE TAPE, CIPRO, LEVAQUIN, BACTRIM. PAST SURGICAL HISTORY: She also had previous fibroid surgery. SOCIAL HISTORY: Significant for tobacco use, 14 years. She has three cigarettes per day. Drinks socially, five drinks per event. She smokes marijuana joint also. Lives at home. FAMILY HISTORY: Noncontributory. REVIEW OF SYSTEMS: She was admitted with lethargy and malaise. Did not have any fever. Did not have any ears, nose, throat problems. No chest pain. No shortness of breath. No respiratory problems. Denied any nausea, vomiting or cramping. She does have muscle weakness and tingling. Denies any back pain. No joint pain. When she was admitted, she does have these skin infections and skin break in the buttock area. No psych history. No endocrine history. No hematological history. Past medical history is as above. Cipro causes her rash, penicillin causes her rash, Bactrim causes her rash, Levaquin causes her rash, doxycycline causes a rash. In the past, she has tolerated Zyvox, so I just put her on Zyvox on this admission. MEDICATIONS: Now are Xanax, Bentyl, Colace, Lovenox. She is on some unspecified home med 5 mg, Atarax, ketorolac. She is on Zyvox, Tylenol, pantoprazole, Zantac. She is on Protonix and Zantac, I do not know. She is on saccharomyces, Florastor. PHYSICAL EXAMINATION: VITAL SIGNS: I find her vitals. T-max is 97.9, pulse is 67, blood pressure 96/60, respirations are 20. HEENT: Head is atraumatic, normocephalic. NECK: Supple. LUNGS: Clear. HEART: S1, S2 are regular. ABDOMEN: Soft, nontender. No guarding. No rigidity present. EXTREMITIES: She is having some problem walking, I think, because of the perineal area involved, but she did not want me to see that. She says she has been here many times. LABORATORY DATA: WBC was 5.9, hemoglobin 9, hematocrit 26.7, platelet count is 241. Sodium 137, potassium is 4, chlorides are 107, CO2 is 22, anion gap is 12, BUN is 16, creatinine 1. Blood culture was negative. ASSESSMENT AND PLAN: The patient is with recurrent abscesses of hidradenitis suppurativa exacerbation and will remain on these medications at this time and we will follow. Karlee Tenorio MD
[2018-05-26 08:37] LABS: BASO % 0.8 % (0.0-2.0); EOS # 0.2 K/uL (0.0-0.7); EOS % 4.7 % (0.0-4.0); LYMPH # 2.5 K/uL (1.0-4.3); LYMPH % 47.7 % (20.0-40.0); MEAN CELL VOLUME 90.9 fL (81.0-99.0); MEAN CORPUSCULAR HEMOGLOBIN 30.3 pg (27.0-31.0); MEAN CORPUSCULAR HGB CONC 33.4 g/dL (33.0-37.0); MEAN PLATELET VOLUME 7.8 fL (7.2-11.7); MONO # 0.4 K/uL (0.0-0.8); MONO % 8.2 % (0.0-10.0); NEUT % 38.6 % (50.0-75.0); RBC 2.98 Mil/uL (3.80-5.20); RED CELL DISTRIBUTION WIDTH 13.9 % (11.5-14.5); WHITE BLOOD COUNT 5.2 K/uL (4.8-10.8)
[2018-05-26 08:51] LABS: ALBUMIN 2.9 g/dL (3.5-5.0); ALT/SGPT 22 U/L (9-52); AST/SGOT 13 U/L (14-36); BLOOD UREA NITROGEN 14 mg/dL (7-17); CALCIUM 8.3 mg/dl (8.6-10.4); GFR NON-AFRICAN AMERICAN > 60
[2018-05-26] MEDS: raNITIdine HCl 150 mg/10 ml Soln Cup PO SCH ×2 (09:29→18:48)
[2018-05-26] MEDS: Enoxaparin 40 mg Syringe SC SCH (09:30)
[2018-05-26] MEDS: Saccharomyces Boulardi 250 mg Cap PO SCH ×2 (09:30→18:48)
[2018-05-26] MEDS: Linezolid 600 mg in D5W 300 ml 600 MG/300 ML BAG IVPB SCH ×2 (09:31→21:16)
--- NOTE | 2018-05-26 16:29 | CP.PCM.CON ---
History of Present Illness - History of Present Illness History of Present Illness: 37 y/o female presents to ED with complaints of painful swelling both right and left groin due to recurrent hydradenitis Hx of multiple admissions - recently had groin wounds drained and sent home on IV antibiotics zyvox/azrtreonam for 7 days Has multiple allergies - Medical History PMH: Anxiety, Asthma, Gastritis, Gall Bladder Disease, Pneumonia ([id number] ) Surgical History: Cholecystectomy, Endoscopy, Tonsillectomy, ( Myomectomy) - [facility] Procedures DRAINAGE OF LEFT INGUINAL REGION, OPEN APPROACH (01/07/18) DRAINAGE OF PERINEUM SKIN, EXTERNAL APPROACH (04/19/16) DRAINAGE OF RIGHT INGUINAL REGION, OPEN APPROACH (01/07/18) EXCISION OF UTERUS, OPEN APPROACH (04/19/16) Review of Systems - Review of Systems All systems: reviewed and no additional remarkable complaints except - Constitutional Constitutional: As Per HPI - EENT Eyes: absent: As Per HPI, Blind Spots, Blurred Vision, Change in Vision, Decreased Night Vision, Diplopia, Discharge, Dry Eye, Exophthalmos, Floaters, Irritation, Itchy Eyes, Loss of Peripheral Vision, Pain, Photophobia, Requires Corrective Lenses, Sees Flashes, Spots in Vision, Tunnel Vision, Other Visual Disturbances, Loss of Vision, Other Ears: absent: As Per HPI, Decreased Hearing, Ear Discharge, Ear Pain, Tinnitus, Abnormal Hearing, Disequilibrium, Dizziness, Other Nose/Mouth/Throat: absent: As Per HPI, Epistaxis, Nasal Congestion, Nasal Discharge, Nasal Obstruction, Nasal Trauma, Nose Pain, Post Nasal Drip, Sinus Pain, Sinus Pressure, Bleeding Gums, Change in Voice, Dental Pain, Dry Mouth, Dysphagia, Halitosis, Hoarsness, Lip Swelling, Mouth Lesions, Mouth Pain, Odynophagia, Sore Throat, Throat Swelling, Tongue Swelling, Facial Pain, Neck Pain, Neck Mass, Other - Breasts Breasts: absent: As Per HPI, Change in Shape, Mass, Pain, Nipple Discharge, Nipple Inversion, Skin Changes, Swelling, Other - Cardiovascular Cardiovascular: absent: As Per HPI, Acrocyanosis, Chest Pain, Chest Pain at Rest , Chest Pain with Activity, Claudication, Diaphoresis, Dyspnea, Dyspnea on Exertion, Edema, Irregular Heart Rhythm, Pain Radiating to Arm/Neck/Jaw, Leg Edema, Leg Ulcers, Lightheadedness, Orthopnea, Palpitations, Paroxysmal Nocturnal Dyspnea, Pedal Edema, Radiating Pain, Rapid Heart Rate, Slow Heart Rate, Syncope, Other - Respiratory Respiratory: absent: As Per HPI, Cough, Dyspnea, Hemoptysis, Dyspnea on Exertion , Wheezing, Snoring, Stridor, Pain on Inspiration, Chest Congestion, Excessive Mucous Production, Change in Mucous Color, Pain with Coughing, Other - Gastrointestinal Gastrointestinal: absent: As Per HPI, Abdominal Pain, Belching, Bloating, Change in Bowel Habits, Change in Stool Character, Coffee Ground Emesis, Constipation, Cramping, Diarrhea, Dyspepsia, Dysphagia, Early Satiety, Excessive Flatus, Fecal Incontinence, Heartburn, Hematemesis, Hematochezia, Loose Stools, Melena, Nausea, Odynophagia, Temesmus, Vomiting, Other - Genitourinary Genitourinary: absent: As Per HPI, Change in Urinary Stream, Difficulty Urinating, Dysuria, Flank Pain, Hematuria, Pyuria, Nocturia, Urinary Incontinence, Urinary Frequency, Urinary Hesitance, Urinary Urgency, Voiding Freq/Small Amts, Freq UTI, Hx Renal/Bladder Calculi, Hx /Renal Surgery, Bladder Distension, Other - Reproductive: Female Reproductive:Female: absent: As Per HPI, Amenorrhea, Amenorrhea/ Control, Currently Menstual, Cycle <21 Days, Cycle >35 Days, Cycle Variable, Menses 1-7 Days, Menses >/= 8 Days, Menses Variable, Cycle > 4 Weeks Between, No Menses for 6 Months, Heavy Menses, Light Menses, Normal Menses, Spotting Between Cycles , S/P Hysterectomy, Menopausal, Post Menopausal, Premenarche, Abnormal Vaginal Bleeding, Dysmenorrhea, Dyspareunia, Genital Lesions, Genital Pruritis, Pelvic Pain, Prolapse Symptoms, Sexual Dysfunction, Vaginal Discharge, Vaginal Dryness , Vaginal Odor, Vaginal Pruritis, Other - Menstruation Menstruation: absent: As Per HPI, Amenorrhea, Amenorrhea/ Control, Currently Menstual, Cycle <21 Days, Cycle >35 Days, Cycle Variable, Menses 1-7 Days, Menses >/= 8 Days, Menses Variable, Cycle > 4 Weeks Between, No Menses for 6 Months, Heavy Menses, Light Menses, Normal Menses, Spotting Between Cycles , S/P Hysterectomy, Menopausal, Post Menopausal, Premenarche, Abnormal Vaginal Bleeding, Dysmenorrhea, Other - Musculoskeletal Musculoskeletal: absent: As Per HPI, Abnormal Gait, Arthralgias, Atrophy, Back Pain, Deformity, Joint Swelling, Limited Range of Motion, Loss of Height, Muscle Cramps, Muscle Weakness, Myalgias, Neck Pain, Numbness, Radiating Pain into Limb, Stiffness, Tingling, Other - Integumentary Integumentary: As Per HPI, Skin Pain, Wounds - Neurological Neurological: absent: As Per HPI, Abnormal Gait, Abnormal Hearing, Abnormal Movements, Abnormal Speech, Behavioral Changes, Burning Sensations, Confusion, Convulsions, Disequilibrium, Dizziness, Numbness, Focal Weakness, Frequent Falls , Headaches, Lack of Coordination, Loss of Vision, Memory Loss, Paresthesias, Radicular Pain, Restless Legs, Sensory Deficit, Syncope, Tingling, Tremor, Vertigo, Weakness, Other Visual Disturbances, Other - Psychiatric Psychiatric: absent: As Per HPI, Abnormal Sleep Pattern, Anhedonia, Anxiety, Auditory Hallucinations, Behavioral Changes, Change in Appetite, Change in Libido, Confusion, Depression, Difficulty Concentrating, Hallucinations, Homicidal Ideation, Hopelessness, Irritability, Memory Loss, Mood Swings, Panic Attacks, Paranoia, Suicidal Ideation, Visual Hallucinations, Tactile Hallucinations, Other - Endocrine Endocrine: absent: As Per HPI, Change in Body Appearance, Change in Libido, Cold Intolorance, Deepening of Voice, Excessive Sweating, Fatigue, Flushing, Heat Intolorance, Increase in Ring/Shoe/Hat Size, Palpitations, Polydipsia, Polyphagia, Polyuria, Other - Hematologic/Lymphatic Hematologic: absent: As Per HPI, Easy Bleeding, Easy Bruising, Lymphadenopathy, Other Past Patient History - Infectious Disease Hx of Infectious Diseases: None - Past Medical History & Family History Past Medical History?: Yes Past Family History: Reviewed and not pertinent - Past Social History Smoking Status: Smoker Currrent Status Unknown Alcohol: Social Drugs: Cannabis - CARDIAC Hx Cardiac Disorders: No - PULMONARY Hx Asthma: Yes Hx Pneumonia: Yes (2016) - NEUROLOGICAL Hx Neurological Disorder: No - HEENT Hx HEENT Problems: No - RENAL Hx Chronic Kidney Disease: No - ENDOCRINE/METABOLIC Hx Endocrine Disorders: No - HEMATOLOGICAL/ONCOLOGICAL Hx Blood Disorders: No - INTEGUMENTARY Hx Dermatological Problems: Yes Other/Comment: HX: MASS RIGHT GROIN - MUSCULOSKELETAL/RHEUMATOLOGICAL Hx Falls: No - GASTROINTESTINAL Hx Gall Bladder Disease: Yes Hx Gastritis: Yes - GENITOURINARY/GYNECOLOGICAL Hx Genitourinary Disorders: Yes Hx Reproductive Disorders: Yes Other/Comment: HX: FIBROID UTERUS - PSYCHIATRIC Hx Anxiety: Yes Hx Substance Use: No - SURGICAL HISTORY Hx Cholecystectomy: Yes Hx Tonsillectomy: Yes - ANESTHESIA Hx Anesthesia: Yes Hx Anesthesia Reactions: No Hx Malignant Hyperthermia: No Meds Allergies/Adverse Reactions: Allergies Allergy/AdvReac Type Severity Reaction Status Date / Time adhesive tape Allergy Severe RASH Verified 05/24/18 11:10 ciprofloxacin [From Cipro] Allergy Intermediate RASH Verified 05/24/18 11:10 ciprofloxacin HCl Allergy Intermediate RASH Verified 05/24/18 11:10 [From Cipro] hydromorphone HCl Allergy Intermediate RASH Verified 05/24/18 11:10 [From Dilaudid] Penicillins Allergy Intermediate RASH Verified 05/24/18 11:10 shrimp Allergy Intermediate RASH Verified 05/24/18 11:10 sulfamethoxazole Allergy Intermediate RASH Verified 05/24/18 11:10 [From Bactrim] trimethoprim [From Bactrim] Allergy Intermediate RASH Verified 05/24/18 11:10 levofloxacin [From Levaquin] Allergy Verified 05/24/18 11:10 doxycycline AdvReac RASH, Verified 05/24/18 11:10 ITCHINESS, THROAT SWELLING - Medications Medications: Current Medications Alprazolam (Xanax) 1 mg PO BID PRN PRN Reason: Anxiety Last Admin: 05/26/18 00:51 Dose: 1 mg Dicyclomine HCl (Bentyl) 10 mg PO Q6 [facility] Last Admin: 05/26/18 11:37 Dose: 10 mg Docusate Sodium (Colace) 100 mg PO BID [facility] Last Admin: 05/26/18 09:30 Dose: 100 mg Enoxaparin Sodium (Lovenox) 40 mg SC DAILY [facility] Last Admin: 05/26/18 09:30 Dose: 40 mg Home Med (Levocetirizine Dihydrochloride [Xyzal]) 5 mg PO DAILY [facility] Hydroxyzine HCl (Atarax) 50 mg PO Q8 PRN PRN Reason: Allergy symptoms Last Admin: 05/25/18 21:01 Dose: 50 mg Linezolid (Zyvox 600mg/300ml D5w) 600 mg in 300 mls @ 200 mls/hr IVPB Q12H [facility] PRN Reason: Protocol Last Admin: 05/26/18 09:31 Dose: 200 mls/hr Oxycodone/Acetaminophen (Percocet 5/325 Mg Tab) 2 tab PO Q4H PRN PRN Reason: pain Stop: 05/27/18 16:22 Last Admin: 05/26/18 09:34 Dose: 2 tab Pantoprazole Sodium (Protonix Ec Tab) 40 mg PO DAILY [facility] Ranitidine HCl (Zantac Soln 5ml) 150 mg PO BID [facility] Last Admin: 05/26/18 09:29 Dose: 150 mg Saccharomyces Boulardii (Florastor) 250 mg PO BID [facility] Last Admin: 05/26/18 09:30 Dose: 250 mg Physical Exam - Constitutional Appears: Non-toxic, Chronically Ill - Head Exam Head Exam: NORMOCEPHALIC - Eye Exam Eye Exam: PERRL - ENT Exam ENT Exam: Mucous Membranes Dry - Neck Exam Neck exam: Negative for: Lymphadenopathy - Respiratory Exam Respiratory Exam: Decreased Breath Sounds - Cardiovascular Exam Cardiovascular Exam: REGULAR RHYTHM - GI/Abdominal Exam GI & Abdominal Exam: Diminished Bowel Sounds, Soft - Rectal Exam Rectal Exam: Deferred - Exam Exam: NORMAL INSPECTION - Extremities Exam Extremities exam: Negative for: pedal edema - Back Exam Back exam: absent: CVA tenderness (L), CVA tenderness (R) - Neurological Exam Neurological exam: Alert, CN II-XII Intact, Oriented x3, Reflexes Normal - Psychiatric Exam Psychiatric exam: Normal Mood - Skin Skin Exam: Dry Results - Vital Signs Recent Vital Signs: Last Vital Signs Temp 97.4 F L 05/26/18 08:31 Pulse 61 05/26/18 08:31 Resp 20 05/26/18 08:31 BP 107/66 05/26/18 08:31 Pulse Ox 100 05/26/18 08:31 - Labs Result Diagrams: 05/26/18 08:18 05/26/18 08:18 Labs: Laboratory Results - last 24 hr 05/26/18 05/26/18 08:18 08:18 WBC 5.2 RBC 2.98 L Hgb 9.0 L Hct 27.1 L MCV 90.9 MCH 30.3 MCHC 33.4 RDW 13.9 Plt Count 256 MPV 7.8 Neut % (Auto) 38.6 L Lymph % (Auto) 47.7 H [place] % (Auto) 8.2 Eos % (Auto) 4.7 H Baso % (Auto) 0.8 Neut # (Auto) 2.0 Lymph # (Auto) 2.5 [place] # (Auto) 0.4 Eos # (Auto) 0.2 Baso # (Auto) 0.0 Sodium 139 Potassium 4.0 Chloride 108 H Carbon Dioxide 22 Anion Gap 12 BUN 14 Creatinine 0.9 Est GFR ( Amer) > 60 Est GFR (Non-Af Amer) > 60 Random Glucose 106 H Calcium 8.3 L Total Bilirubin 0.2 AST 13 L ALT 22 Alkaline Phosphatase 48 Total Protein 5.8 L Albumin 2.9 L Globulin 2.9 Albumin/Globulin Ratio 1.0 Assessment & Plan (1) Hidradenitis suppurativa Status: Acute - Assessment and Plan (Free Text) Assessment: await cultures for OR / skin graft cont IV Zyvox
[2018-05-27] MEDS: Oxycodone/Acetaminophen 5/325 mg Tab PO PRN ×4 (00:12→14:05)
[2018-05-27 08:46] LABS: BASO % 0.7 % (0.0-2.0); EOS # 0.2 K/uL (0.0-0.7); EOS % 3.2 % (0.0-4.0); HEMOGLOBIN 9.1 g/dL (11.0-16.0); LYMPH # 1.5 K/uL (1.0-4.3); LYMPH % 26.1 % (20.0-40.0); MEAN CELL VOLUME 91.1 fL (81.0-99.0); MEAN CORPUSCULAR HEMOGLOBIN 31.2 pg (27.0-31.0); MEAN CORPUSCULAR HGB CONC 34.3 g/dL (33.0-37.0); MEAN PLATELET VOLUME 8.1 fL (7.2-11.7); MONO # 0.5 K/uL (0.0-0.8); MONO % 8.1 % (0.0-10.0); NEUT # 3.6 K/uL (1.8-7.0); NEUT % 61.9 % (50.0-75.0); RBC 2.93 Mil/uL (3.80-5.20); WHITE BLOOD COUNT 5.8 K/uL (4.8-10.8)
[2018-05-27 08:51] LABS: ALB/GLOB RATIO 1.2 (1.0-2.1); ALBUMIN 3.2 g/dL (3.5-5.0); ALT/SGPT 29 U/L (9-52); AST/SGOT 20 U/L (14-36); BLOOD UREA NITROGEN 13 mg/dL (7-17); GFR NON-AFRICAN AMERICAN > 60
[2018-05-27] MEDS: Linezolid 600 mg in D5W 300 ml 600 MG/300 ML BAG IVPB SCH ×2 (09:46→20:33)
[2018-05-27] MEDS: Pantoprazole 40 mg EC Tab PO SCH (09:47)
[2018-05-27] MEDS: Saccharomyces Boulardi 250 mg Cap PO SCH ×2 (09:47→18:40)
[2018-05-27] MEDS: raNITIdine HCl 150 mg/10 ml Soln Cup PO SCH ×2 (09:50→18:41)
[2018-05-27] MEDS ORDERED: POLYETHYLENE GLYCOL 3350 17 GM/Dose PACKET PO ONE (13:00)
--- NOTE | 2018-05-27 22:52 | CP.PCM.PN ---
Subjective - Date & Time of Evaluation Date of Evaluation: 05/27/18 Time of Evaluation: 06:37 - Subjective Subjective: PGY2 Medicine Note for Dr. Joyce Patel Patient seen and examined this morning at bedside. Patient is resting comfortably in bed in no acute distress. She is nervous for tomorrow's surgery but is feeling well otherwise. Her pain has been well controlled. She is tolerating her diet. Denies fevers, chills, nausea, vomiting, diarrhea, constipation, chest pain, shortness of breath, abdominal pain, numbness or tingling. Objective - Vital Signs/Intake and Output Vital Signs (last 24 hours): Temp Pulse Resp BP Pulse Ox 98.2 F 69 20 101/63 97 05/27/18 15:32 05/27/18 15:32 05/27/18 15:32 05/27/18 15:32 05/27/18 15:32 Intake and Output: 05/27/18 05/28/18 18:59 06:59 Intake Total 560 650 Balance 560 650 - Medications Medications: Current Medications Alprazolam (Xanax) 1 mg PO BID PRN PRN Reason: Anxiety Last Admin: 05/27/18 09:47 Dose: 1 mg Dicyclomine HCl (Bentyl) 10 mg PO Q6 [facility] Last Admin: 05/27/18 18:40 Dose: 10 mg Docusate Sodium (Colace) 100 mg PO BID [facility] Last Admin: 05/27/18 18:40 Dose: 100 mg Enoxaparin Sodium (Lovenox) 40 mg SC DAILY [facility] Last Admin: 05/26/18 09:30 Dose: 40 mg Home Med (Levocetirizine Dihydrochloride [Xyzal]) 5 mg PO DAILY [facility] Hydroxyzine HCl (Atarax) 50 mg PO Q8 PRN PRN Reason: Allergy symptoms Last Admin: 05/26/18 16:33 Dose: 50 mg Linezolid (Zyvox 600mg/300ml D5w) 600 mg in 300 mls @ 200 mls/hr IVPB Q12H ROGERIO PRN Reason: Protocol Last Admin: 05/27/18 20:33 Dose: 200 mls/hr Ketorolac Tromethamine (Toradol) 30 mg IVP Q6 PRN PRN Reason: Pain, severe (8-10) Last Admin: 05/27/18 19:27 Dose: 30 mg Pantoprazole Sodium (Protonix Ec Tab) 40 mg PO DAILY [facility] Last Admin: 05/27/18 09:47 Dose: 40 mg Ranitidine HCl (Zantac Soln 5ml) 150 mg PO BID [facility] Last Admin: 05/27/18 18:41 Dose: 150 mg Saccharomyces Boulardii (Florastor) 250 mg PO BID [facility] Last Admin: 05/27/18 18:40 Dose: 250 mg - Labs Labs: 05/27/18 08:16 05/27/18 08:16 PT 10.3 SECONDS (9.7-12.2) 05/24/18 12:04 INR 0.9 05/24/18 12:04 APTT 33 SECONDS (21-34) 05/24/18 12:04 - Constitutional Appears: No Acute Distress, Chronically Ill - Head Exam Head Exam: ATRAUMATIC, NORMOCEPHALIC - Eye Exam Eye Exam: EOMI, Normal appearance - ENT Exam ENT Exam: Mucous Membranes Moist - Neck Exam Neck Exam: absent: Lymphadenopathy - Respiratory Exam Respiratory Exam: Clear to Ausculation Bilateral, NORMAL BREATHING PATTERN. absent: Accessory Muscle Use, Rales, Rhonchi, Wheezes, Respiratory Distress - Cardiovascular Exam Cardiovascular Exam: REGULAR RHYTHM, +S1 - GI/Abdominal Exam GI & Abdominal Exam: Soft, Normal Bowel Sounds. absent: Distended, Firm, Guarding, Rigid, Tenderness, Rebound - Exam Additional comments: surgical dressings in place b/l, both sides are c/d/i - Neurological Exam Neurological Exam: Alert, Awake, Oriented x3 - Psychiatric Exam Psychiatric exam: Anxious - Skin Skin Exam: Dry, Warm Assessment and Plan - Assessment and Plan (Free Text) Plan: Bilateral groin abscesses - for OR with Dr. Artur Montemayor 05/28, NPO @ midnight Mon 05/27 - s/p (05/24/18) wide excision of infected bilateral mass of groin and right thigh - per Dr. Siddiqui: - Colace 100mg po bid - Toradol 30mg IVP q6 prn - Percoset 2 tab po q4 prn - antibiotics per ID: Dr. Tenorio covering for Dr. Gastelum: Linezolid 600mg IVPB q12 - groin wound last admission grew Acinetobacter Baumannii, previous admissions' groin wound cultures have grown E. Coli and Proteus Mirabilis - blood culture (05/24/18): no growth - at 4 days Chronic Diarrhea - Continue Home Bentyl 10mg po q6 Pruritus/Seasonal Allergies - Continue Home Atarax 50mg po q8 - Continue Home Xyzal 5 mg po daily History of Anxiety - Continue Home Xanax 1mg po bid History of Disc herniation - supportive care - encourage proper posture - consider PT after procedure Prophylaxis - DVT: per Surgery: Lovenox 40mg SC daily - hold prior to surgery - GI: Cont Home Protonix 40mg po daily, Cont Home Ranitidine 150mg po bid - Florastor 250mg po bid Will discuss with Dr. Joyce Hooker Micha PGY2
[2018-05-28] MEDS: Linezolid 600 mg in D5W 300 ml 600 MG/300 ML BAG IVPB SCH ×2 (08:19→20:42)
[2018-05-28 08:41] LABS: BASO # 0.1 K/uL (0.0-0.2); BASO % 1.2 % (0.0-2.0); EOS # 0.3 K/uL (0.0-0.7); EOS % 5.3 % (0.0-4.0); LYMPH # 2.2 K/uL (1.0-4.3); LYMPH % 43.2 % (20.0-40.0); MEAN CELL VOLUME 89.5 fL (81.0-99.0); MEAN CORPUSCULAR HEMOGLOBIN 30.4 pg (27.0-31.0); MEAN PLATELET VOLUME 7.5 fL (7.2-11.7); MONO # 0.4 K/uL (0.0-0.8); MONO % 8.9 % (0.0-10.0); NEUT # 2.1 K/uL (1.8-7.0); NEUT % 41.4 % (50.0-75.0); RBC 2.96 Mil/uL (3.80-5.20)
[2018-05-28] MEDS: Saccharomyces Boulardi 250 mg Cap PO SCH ×2 (09:04→18:03)
[2018-05-28] MEDS: raNITIdine HCl 150 mg/10 ml Soln Cup PO SCH ×2 (09:04→18:00)
[2018-05-28] MEDS: Pantoprazole 40 mg EC Tab PO SCH (09:08)
[2018-05-28 10:39] LABS: ALB/GLOB RATIO 1.1 (1.0-2.1); ALBUMIN 3.1 g/dL (3.5-5.0); ALT/SGPT 28 U/L (9-52); AST/SGOT 26 U/L (14-36); BLOOD UREA NITROGEN 14 mg/dL (7-17); CALCIUM 8.6 mg/dl (8.6-10.4); GFR NON-AFRICAN AMERICAN > 60
--- NOTE | 2018-05-28 12:39 | CP.PCM.PN ---
Subjective - Date & Time of Evaluation Date of Evaluation: 05/28/18 Time of Evaluation: 07:00 - Subjective Subjective: events noted afeb c/o back pain Objective - Vital Signs/Intake and Output Vital Signs (last 24 hours): Temp Pulse Resp BP Pulse Ox 98.4 F 66 20 115/67 100 05/28/18 08:00 05/28/18 08:00 05/28/18 08:00 05/28/18 08:00 05/28/18 08:00 Intake and Output: 05/28/18 05/28/18 06:59 18:59 Intake Total 675 Balance 675 - Medications Medications: Current Medications Alprazolam (Xanax) 1 mg PO BID PRN PRN Reason: Anxiety Last Admin: 05/27/18 09:47 Dose: 1 mg Dicyclomine HCl (Bentyl) 10 mg PO Q6 [facility] Last Admin: 05/28/18 11:37 Dose: Not Given Docusate Sodium (Colace) 100 mg PO BID [facility] Last Admin: 05/28/18 09:04 Dose: Not Given Enoxaparin Sodium (Lovenox) 40 mg SC DAILY [facility] Last Admin: 05/26/18 09:30 Dose: 40 mg Home Med (Levocetirizine Dihydrochloride [Xyzal]) 5 mg PO DAILY [facility] Hydroxyzine HCl (Atarax) 50 mg PO Q8 PRN PRN Reason: Allergy symptoms Last Admin: 05/28/18 00:00 Dose: 50 mg Linezolid (Zyvox 600mg/300ml D5w) 600 mg in 300 mls @ 200 mls/hr IVPB Q12H ROGERIO PRN Reason: Protocol Last Admin: 05/28/18 08:19 Dose: 200 mls/hr Ketorolac Tromethamine (Toradol) 30 mg IVP Q6 PRN PRN Reason: Pain, severe (8-10) Last Admin: 05/28/18 01:36 Dose: 30 mg Pantoprazole Sodium (Protonix Ec Tab) 40 mg PO DAILY [facility] Last Admin: 05/28/18 09:08 Dose: Not Given Ranitidine HCl (Zantac Soln 5ml) 150 mg PO BID [facility] Last Admin: 05/28/18 09:04 Dose: Not Given Saccharomyces Boulardii (Florastor) 250 mg PO BID [facility] Last Admin: 05/28/18 09:04 Dose: Not Given - Labs Labs: 05/28/18 08:33 05/28/18 08:33 PT 10.3 SECONDS (9.7-12.2) 05/24/18 12:04 INR 0.9 05/24/18 12:04 APTT 33 SECONDS (21-34) 05/24/18 12:04 - Constitutional Appears: Non-toxic, Chronically Ill - Head Exam Head Exam: NORMOCEPHALIC - Eye Exam Eye Exam: PERRL - ENT Exam ENT Exam: Mucous Membranes Dry - Neck Exam Neck Exam: absent: Lymphadenopathy - Respiratory Exam Respiratory Exam: Decreased Breath Sounds - Cardiovascular Exam Cardiovascular Exam: REGULAR RHYTHM - GI/Abdominal Exam GI & Abdominal Exam: Distended - Rectal Exam Rectal Exam: Deferred - Exam Exam: NORMAL INSPECTION Assessment and Plan (1) Hidradenitis suppurativa Status: Acute - Assessment and Plan (Free Text) Assessment: cont iv rx for now OR for closure/ skin graft
[2018-05-28] MEDS ORDERED: Lidocaine 2% MPF (5 ml) Inj ONE ×2 (13:30→13:31)
[2018-05-28] MEDS ORDERED: Bupivacaine 0.25% 20 ML INJ IJ ONE (13:30)
[2018-05-28] MEDS ORDERED: Propofol 10 mg/ml Inj (20 ML) ONE (15:11)
[2018-05-28] MEDS ORDERED: Midazolam 2 MG/2 ML VIAL ONE (15:39)
[2018-05-28] MEDS: Lactated Ringer's 1,000 ML IV SCH (19:00)
--- NOTE | 2018-05-28 22:33 | CARD ---
APPROVED REPORT Date of service: 05/24/2018 EKG Measurement Heart [id number] <Conclusion> Normal sinus rhythm Normal ECG
[2018-05-29] MEDS: Lactated Ringer's 1,000 ML IV SCH ×3 (02:15→21:45)
--- NOTE | 2018-05-29 03:40 | OP ---
Copied To: Nitish Siddiqui MD Attending MD: Nitish Siddiqui MD PROCEDURE DATE: 05/28/2018 PREOPERATIVE DIAGNOSIS: Bilateral groin abscesses with cellulitis. POSTOPERATIVE DIAGNOSIS: Bilateral groin abscesses with cellulitis. PROCEDURE PERFORMED: Redebridement, bilateral groin abscesses with redrainage of pelvic abscesses bilaterally with partial advancement flap closures bilaterally. SURGEON: Nitish Siddiqui MD ANESTHESIA: General. BLOOD LOSS: 40 mL. POSTOP CONDITION: Stable. INDICATIONS FOR SURGERY: This is a 37-year-old female with chronic bilateral groin abscesses who underwent wide excisions of infected abscesses with the wounds being left open. She is subsequently taken back to the operating room today for further treatment. PROCEDURE IN DETAIL: The patient was taken to the operating room. General anesthesia administered. Both the packings in the groins were prepped and draped leaving large open wounds. The wounds were again aggressively debrided and pulse irrigated. Any remaining collections that were extended into the retroperitoneum were drained and cultured. Larger blood vessels were repaired. Advancement flap closures were performed by widely mobilizing, making counter incisions and advancement flaps were raised peripherally and closed with Monocryl. The central portion of the wound was packed with wet saline gauze. The patient tolerated the procedure well and returned to recovery room in stable condition. Nitish Siddiqui MD
[2018-05-29] MEDS: raNITIdine HCl 150 mg/10 ml Soln Cup PO SCH ×2 (10:13→18:45)
[2018-05-29] MEDS: Saccharomyces Boulardi 250 mg Cap PO SCH ×2 (10:13→18:45)
[2018-05-29] MEDS: Pantoprazole 40 mg EC Tab PO SCH (10:13)
[2018-05-29] MEDS ORDERED: HYDROmorphone 0.5 mg/0.5 ml ISec IVP PRN (19:23)
[2018-05-29] MEDS ORDERED: Midazolam 2 MG/2 ML VIAL ONE (19:39)
[2018-05-29] MEDS ORDERED: Propofol 10 mg/ml Inj (20 ML) ONE (19:39)
[2018-05-29] MEDS: Oxycodone/Acetaminophen 5/325 mg Tab PO PRN (23:53)
--- NOTE | 2018-05-30 07:02 | CP.PCM.PN ---
Subjective - Date & Time of Evaluation Date of Evaluation: 05/30/18 Time of Evaluation: 11:00 - Subjective Subjective: Consult Progress Note for Dr. Diehl's Service Patient seen and examined at bedside. Patient reports pain at inguinal site. Patient is for OR today at 1pm. Denied fever, chills, headache, chest pain, shortness of breath, abdominal pain, n/v/d/c, or urinary symptoms. Objective - Vital Signs/Intake and Output Vital Signs (last 24 hours): Temp Pulse Resp BP Pulse Ox 98 F 84 20 144/84 100 05/29/18 23:28 05/29/18 23:28 05/29/18 23:28 05/29/18 23:28 05/29/18 23:28 Intake and Output: 05/30/18 05/30/18 06:59 18:59 Intake Total 1400 Output Total 850 Balance 550 - Medications Medications: Current Medications Alprazolam (Xanax) 1 mg PO BID PRN PRN Reason: Anxiety Last Admin: 05/29/18 22:41 Dose: 1 mg Dicyclomine HCl (Bentyl) 10 mg PO Q6 [facility] Last Admin: 05/30/18 06:27 Dose: Not Given Docusate Sodium (Colace) 100 mg PO BID [facility] Last Admin: 05/29/18 18:50 Dose: Not Given Enoxaparin Sodium (Lovenox) 40 mg SC DAILY [facility] Last Admin: 05/26/18 09:30 Dose: 40 mg Hydroxyzine HCl (Atarax) 50 mg PO Q8 PRN PRN Reason: Allergy symptoms Last Admin: 05/28/18 23:58 Dose: 50 mg Lactated Ringer's (Lactated Ringer's) 1,000 mls @ 100 mls/hr IV .Q10H [facility] Last Admin: 05/29/18 21:45 Dose: Not Given Loratadine (Claritin) 10 mg PO DAILY [facility] Last Admin: 05/29/18 10:13 Dose: Not Given Oxycodone/Acetaminophen (Percocet 5/325 Mg Tab) 2 tab PO Q4H PRN PRN Reason: pain Stop: 06/01/18 21:10 Last Admin: 05/29/18 23:53 Dose: 2 tab Pantoprazole Sodium (Protonix Ec Tab) 40 mg PO DAILY [facility] Last Admin: 05/29/18 10:13 Dose: Not Given Ranitidine HCl (Zantac Soln 5ml) 150 mg PO BID [facility] Last Admin: 05/29/18 18:45 Dose: Not Given Saccharomyces Boulardii (Florastor) 250 mg PO BID [facility] Last Admin: 05/29/18 18:45 Dose: Not Given - Labs Labs: 05/28/18 08:33 05/28/18 08:33 PT 10.3 SECONDS (9.7-12.2) 05/24/18 12:04 INR 0.9 05/24/18 12:04 APTT 33 SECONDS (21-34) 05/24/18 12:04 - Additional Findings Additional findings: - Constitutional Appears: No Acute Distress, Chronically Ill - Head Exam Head Exam: ATRAUMATIC, NORMOCEPHALIC - Eye Exam Eye Exam: EOMI, Normal appearance - ENT Exam ENT Exam: Mucous Membranes Moist - Neck Exam Neck Exam: absent: Lymphadenopathy - Respiratory Exam Respiratory Exam: Clear to Ausculation Bilateral, NORMAL BREATHING PATTERN. absent: Accessory Muscle Use, Rales, Rhonchi, Wheezes, Respiratory Distress - Cardiovascular Exam Cardiovascular Exam: REGULAR RHYTHM, +S1 - GI/Abdominal Exam GI & Abdominal Exam: Soft, Normal Bowel Sounds. absent: Distended, Firm, Guarding, Rigid, Tenderness, Rebound - Exam Additional comments: surgical dressings in place b/l, both sides are c/d/i - Neurological Exam Neurological Exam: Alert, Awake, Oriented x3 - Psychiatric Exam Psychiatric exam: Anxious - Skin Skin Exam: Dry, Warm Assessment and Plan - Assessment and Plan (Free Text) Plan: Bilateral groin abscesses - s/p (05/24/18) wide excision of infected bilateral mass of groin and right thigh - s/p 05/28/18 - redbridement - scheduled for OR today 05/30/18 - per Dr. Siddiqui: - Colace 100mg po bid - Percocet 2 tab po q4 prn - antibiotics per ID: Dr. Tenorio covering for Dr. Gastelum: Linezolid 600mg IVPB q12 - groin wound last admission grew Acinetobacter Baumannii, previous admissions' groin wound cultures have grown E. Coli and Proteus Mirabilis - This admission wound culture (05/28/18) grew E.coli sensitive to Cipro and Martha) - blood culture (05/24/18): no growth - at 4 days Chronic Diarrhea - Continue Home Bentyl 10mg po q6 Pruritus/Seasonal Allergies - Continue Home Atarax 50mg po q8 - Continue Home Xyzal 5 mg po daily History of Anxiety - Continue Home Xanax 1mg po bid History of Disc Herniation - Supportive care - Encourage proper posture - PT eval Prophylaxis - DVT: per Surgery: Lovenox 40mg SC daily - hold prior to surgery - GI: Cont Home Protonix 40mg po daily, Cont Home Ranitidine 150mg po bid - Florastor 250mg po bid - PT eval Disposition: Medicine team consulted; discharge pending Dr. Siddiqui. All medical management as per Dr. Diehl. DW Dr. Diehl, Michaela Silvestre DO PGY2
[2018-05-30] MEDS: Lactated Ringer's 1,000 ML IV SCH ×2 (07:46→16:35)
[2018-05-30] MEDS: Oxycodone/Acetaminophen 5/325 mg Tab PO PRN (08:30)
[2018-05-30] MEDS: raNITIdine HCl 150 mg/10 ml Soln Cup PO SCH ×2 (10:24→17:25)
[2018-05-30] MEDS: Linezolid 600 mg in D5W 300 ml 600 MG/300 ML BAG IVPB SCH ×2 (10:24→21:04)
[2018-05-30] MEDS: Pantoprazole 40 mg EC Tab PO SCH (10:25)
[2018-05-30] MEDS: Saccharomyces Boulardi 250 mg Cap PO SCH ×2 (10:25→18:31)
[2018-05-30] MEDS ORDERED: Midazolam 2 MG/2 ML VIAL ONE (12:56)
[2018-05-30] MEDS ORDERED: Propofol 10 mg/ml Inj (20 ML) ONE (12:56)
[2018-05-30 16:34] VITALS: RESP 20
[2018-05-31] MEDS: Oxycodone/Acetaminophen 5/325 mg Tab PO PRN ×6 (00:11→23:36)
--- NOTE | 2018-05-31 01:20 | OP ---
PROCEDURE DATE: 05/30/2018 PREOPERATIVE DIAGNOSIS: Bilateral pelvic abscess. POSTOPERATIVE DIAGNOSIS: Bilateral pelvic abscess. TREATMENT PERFORMED: Debridement, redrainage and a partial tissue flap closure, bilateral pelvic abscess. SURGEON: Nitish Siddiqui MD ANESTHESIA: General. ESTIMATED BLOOD LOSS: 30 mL. POSTOPERATIVE CONDITION: Stable. INDICATIONS FOR SURGERY: This is a staged procedure. The patient with two large bilateral groin abscesses, taken back to the operating room today for final debridement and closure. DESCRIPTION OF PROCEDURE: The patient was taken to the operating room, general anesthesia was administered, placed in the frog position with the pelvis opened up and the wounds exposed. Packings were removed and both wounds were aggressively irrigated and debrided with any remaining , drained and cultured. Any larger blood vessels were repaired and smaller ones were ligated during the procedure. The wounds were then pulse irrigated, cleansed and generous full thickness tissue flaps were raised. Counter incisions were made and partial tissue flap closures were performed bilaterally, total length of 40 sq cm. The central portion of wounds were packed open with wet saline gauze. The patient tolerated the procedure well, returned to recovery room in stable condition. Nitish Siddiqui MD
[2018-05-31] MEDS: Lactated Ringer's 1,000 ML IV SCH (04:42)
[2018-05-31 06:35] LABS: BASO % 0.8 % (0.0-2.0); EOS # 0.2 K/uL (0.0-0.7); EOS % 3.8 % (0.0-4.0); HEMOGLOBIN 8.8 g/dL (11.0-16.0); LYMPH # 1.7 K/uL (1.0-4.3); LYMPH % 29.7 % (20.0-40.0); MEAN CORPUSCULAR HEMOGLOBIN 30.1 pg (27.0-31.0); MEAN CORPUSCULAR HGB CONC 33.4 g/dL (33.0-37.0); MEAN PLATELET VOLUME 7.1 fL (7.2-11.7); MONO # 0.5 K/uL (0.0-0.8); MONO % 8.7 % (0.0-10.0); NEUT # 3.2 K/uL (1.8-7.0); RBC 2.94 Mil/uL (3.80-5.20); WHITE BLOOD COUNT 5.6 K/uL (4.8-10.8)
[2018-05-31 07:37] LABS: ALB/GLOB RATIO 1.1 (1.0-2.1); ALBUMIN 3.4 g/dL (3.5-5.0); ALT/SGPT 39 U/L (9-52); AST/SGOT 29 U/L (14-36); BLOOD UREA NITROGEN 10 mg/dL (7-17); CALCIUM 8.8 mg/dl (8.6-10.4); GFR NON-AFRICAN AMERICAN > 60
--- NOTE | 2018-05-31 07:57 | CON ---
DATE: 05/30/2018 HISTORY OF PRESENT ILLNESS: A 37-year-old female with a history of recurrent infection and abscess in the groin, chronic back pain. The patient came to the ER, advised admission. The patient had multiple surgeries in the groin. PHYSICAL EXAMINATION: GENERAL: The patient is awake, alert and oriented. VITAL SIGNS: Temperature 98, pulse 90. HEENT: Within normal limits. NECK: Supple. HEART: S1 and S2 are regular. ABDOMEN: Soft. EXTREMITIES: . BACK: Tenderness in the lower back. ASSESSMENT AND PLAN: The patient suffers recurrent hidradenitis of the groin infection and abscess, chronic low back pain, hypertension. Patient get bed rest, intravenous antibiotics. Incision and drainage of abscesses by Dr. Siddiqui. Physical therapy. Back pain. Viviane Diehl MD
--- NOTE | 2018-05-31 09:05 | CP.PCM.PN ---
Subjective - Date & Time of Evaluation Date of Evaluation: 05/31/18 Time of Evaluation: 09:00 - Subjective Subjective: Medicine Consult Note for Dr. Diehl's Service Patient seen and examined at bedside. Patient reports pain but it is well controlled with pain medications. Denied fever, chills, headache, chest pain, shortness of breath, abdominal pain, n/v/d/c, or urinary symptoms. Objective - Vital Signs/Intake and Output Vital Signs (last 24 hours): Temp Pulse Resp BP Pulse Ox 98.9 F 90 20 132/80 99 05/30/18 23:23 05/30/18 23:23 05/30/18 23:23 05/30/18 23:23 05/30/18 23:23 Intake and Output: 05/31/18 05/31/18 06:59 18:59 Intake Total 1680 Balance 1680 - Medications Medications: Current Medications Alprazolam (Xanax) 1 mg PO BID PRN PRN Reason: Anxiety Last Admin: 05/29/18 22:41 Dose: 1 mg Dicyclomine HCl (Bentyl) 10 mg PO Q6 [facility] Last Admin: 05/31/18 07:03 Dose: Not Given Docusate Sodium (Colace) 100 mg PO BID [facility] Last Admin: 05/30/18 18:30 Dose: 100 mg Enoxaparin Sodium (Lovenox) 40 mg SC DAILY [facility] Last Admin: 05/26/18 09:30 Dose: 40 mg Hydroxyzine HCl (Atarax) 50 mg PO Q8 PRN PRN Reason: Allergy symptoms Last Admin: 05/31/18 03:04 Dose: 50 mg Linezolid (Zyvox 600mg/300ml D5w) 600 mg in 300 mls @ 200 mls/hr IVPB Q12H ROGERIO PRN Reason: Protocol Last Admin: 05/30/18 21:04 Dose: 200 mls/hr Loratadine (Claritin) 10 mg PO DAILY [facility] Last Admin: 05/30/18 10:25 Dose: Not Given Oxycodone/Acetaminophen (Percocet 5/325 Mg Tab) 2 tab PO Q4H PRN PRN Reason: pain Stop: 06/01/18 21:10 Last Admin: 05/31/18 04:51 Dose: 2 tab Pantoprazole Sodium (Protonix Ec Tab) 40 mg PO DAILY [facility] Last Admin: 05/30/18 10:25 Dose: Not Given Ranitidine HCl (Zantac Soln 5ml) 150 mg PO BID [facility] Last Admin: 05/30/18 17:25 Dose: 150 mg Saccharomyces Boulardii (Florastor) 250 mg PO BID [facility] Last Admin: 05/30/18 18:31 Dose: 250 mg - Labs Labs: 05/31/18 06:28 05/31/18 06:28 PT 10.3 SECONDS (9.7-12.2) 05/24/18 12:04 INR 0.9 05/24/18 12:04 APTT 33 SECONDS (21-34) 05/24/18 12:04 - Additional Findings Additional findings: - Constitutional Appears: No Acute Distress, Chronically Ill - Head Exam Head Exam: ATRAUMATIC, NORMOCEPHALIC - Eye Exam Eye Exam: EOMI, Normal appearance - ENT Exam ENT Exam: Mucous Membranes Moist - Neck Exam Neck Exam: absent: Lymphadenopathy - Respiratory Exam Respiratory Exam: Clear to Ausculation Bilateral, NORMAL BREATHING PATTERN. absent: Accessory Muscle Use, Rales, Rhonchi, Wheezes, Respiratory Distress - Cardiovascular Exam Cardiovascular Exam: REGULAR RHYTHM, +S1 - GI/Abdominal Exam GI & Abdominal Exam: Soft, Normal Bowel Sounds. absent: Distended, Firm, Guarding, Rigid, Tenderness, Rebound - Exam Additional comments: surgical dressings in place b/l, both sides are c/d/i - Neurological Exam Neurological Exam: Alert, Awake, Oriented x3 - Psychiatric Exam Psychiatric exam: Anxious - Skin Skin Exam: Dry, Warm Assessment and Plan - Assessment and Plan (Free Text) Plan: Bilateral Groin Abscesses - s/p (05/24/18) wide excision of infected bilateral mass of groin and right thigh - s/p 05/28/18 - redbridement - s/p OR today 05/30/18 - per Dr. Siddiqui: - Colace 100mg po bid - Percocet 2 tab po q4 prn - antibiotics per ID: Dr. Tenorio covering for Dr. Gastelum: Linezolid 600mg IVPB q12 - groin wound last admission grew Acinetobacter Baumannii, previous admissions' groin wound cultures have grown E. Coli and Proteus Mirabilis - This admission wound culture (05/28/18) grew E.coli sensitive to Cipro and Martha) - blood culture (05/24/18): no growth - up to date Chronic Diarrhea - Continue Home Bentyl 10mg po q6 Pruritus/Seasonal Allergies - Continue Home Atarax 50mg po q8 - Continue Home Xyzal 5 mg po daily History of Anxiety - Continue Home Xanax 1mg po bid History of Disc Herniation - Supportive care - Encourage proper posture - PT eval Prophylaxis - DVT: per Surgery: Lovenox 40mg SC daily - hold prior to surgery - GI: Cont Home Protonix 40mg po daily, Cont Home Ranitidine 150mg po bid - Florastor 250mg po bid - PT eval Disposition: Medicine team consulted for medical management. Patient is discharged as per Dr. Siddiqui today 05/31/18. She is to follow up with him in 1- 2 weeks. She was provided with prescriptions for percocet, as per Dr. Siddiqui - no oral antibiotics. She is to have a visiting nurse arranged. Medicine team will be signing off this patient. Thank you for the interesting consult. All medical management as per Dr. Diehl. Michaela Harrell Dr. DO PGY2
[2018-05-31] MEDS: Linezolid 600 mg in D5W 300 ml 600 MG/300 ML BAG IVPB SCH (09:38)
[2018-05-31] MEDS: Pantoprazole 40 mg EC Tab PO SCH (09:39)
[2018-05-31] MEDS: Saccharomyces Boulardi 250 mg Cap PO SCH ×2 (09:39→17:47)
[2018-05-31] MEDS: raNITIdine HCl 150 mg/10 ml Soln Cup PO SCH ×2 (09:40→17:47)
--- NOTE | 2018-05-31 18:46 | CP.PCM.PN ---
Subjective - Date & Time of Evaluation Date of Evaluation: 05/31/18 Time of Evaluation: 07:00 - Subjective Subjective: Patient seen and examined at bedside. Patient reports pain but it is well controlled with pain medications. Denied fever, chills, headache, chest pain, shortness of breath, abdominal pain, n/v/d/c, or urinary symptoms. Objective - Vital Signs/Intake and Output Vital Signs (last 24 hours): Temp Pulse Resp BP Pulse Ox 98.0 F 69 20 115/76 96 05/31/18 15:19 05/31/18 15:19 05/31/18 15:19 05/31/18 15:19 05/31/18 15:19 Intake and Output: 05/31/18 05/31/18 06:59 18:59 Intake Total 1680 900 Balance 1680 900 - Medications Medications: Current Medications Alprazolam (Xanax) 1 mg PO BID PRN PRN Reason: Anxiety Last Admin: 05/29/18 22:41 Dose: 1 mg Dicyclomine HCl (Bentyl) 10 mg PO Q6 [facility] Last Admin: 05/31/18 17:46 Dose: 10 mg Docusate Sodium (Colace) 100 mg PO BID [facility] Last Admin: 05/31/18 17:46 Dose: 100 mg Enoxaparin Sodium (Lovenox) 40 mg SC DAILY [facility] Last Admin: 05/26/18 09:30 Dose: 40 mg Hydroxyzine HCl (Atarax) 50 mg PO Q8 PRN PRN Reason: Allergy symptoms Last Admin: 05/31/18 03:04 Dose: 50 mg Linezolid (Zyvox 600mg/300ml D5w) 600 mg in 300 mls @ 200 mls/hr IVPB Q12H ROGERIO PRN Reason: Protocol Last Admin: 05/31/18 09:38 Dose: 200 mls/hr Loratadine (Claritin) 10 mg PO DAILY [facility] Last Admin: 05/31/18 09:39 Dose: 10 mg Oxycodone/Acetaminophen (Percocet 5/325 Mg Tab) 2 tab PO Q4H PRN PRN Reason: pain Stop: 06/01/18 21:10 Last Admin: 05/31/18 17:47 Dose: 2 tab Pantoprazole Sodium (Protonix Ec Tab) 40 mg PO DAILY [facility] Last Admin: 05/31/18 09:39 Dose: 40 mg Ranitidine HCl (Zantac Soln 5ml) 150 mg PO BID [facility] Last Admin: 05/31/18 17:47 Dose: 150 mg Saccharomyces Boulardii (Florastor) 250 mg PO BID [facility] Last Admin: 05/31/18 17:47 Dose: 250 mg - Labs Labs: 05/31/18 06:28 05/31/18 06:28 PT 10.3 SECONDS (9.7-12.2) 05/24/18 12:04 INR 0.9 05/24/18 12:04 APTT 33 SECONDS (21-34) 05/24/18 12:04 - Constitutional Appears: Non-toxic, Chronically Ill - Head Exam Head Exam: NORMOCEPHALIC - Eye Exam Eye Exam: absent: Scleral icterus - ENT Exam ENT Exam: Mucous Membranes Dry - Neck Exam Neck Exam: absent: Lymphadenopathy - Respiratory Exam Respiratory Exam: Decreased Breath Sounds - Cardiovascular Exam Cardiovascular Exam: REGULAR RHYTHM - GI/Abdominal Exam GI & Abdominal Exam: Distended, Soft - Rectal Exam Rectal Exam: Deferred - Exam Exam: NORMAL INSPECTION - Extremities Exam Extremities Exam: absent: Pedal Edema - Back Exam Back Exam: absent: CVA tenderness (L), CVA tenderness (R) Assessment and Plan (1) Hidradenitis suppurativa Status: Acute - Assessment and Plan (Free Text) Assessment: pseudomonas from wound d/c zyvox add cefepime surgical follow up
[2018-05-31] MEDS: Aztreonam 1 GM in Sodium Chloride 0.9% 100 ML IVPB SCH (21:02)
[2018-05-31 23:27] VITALS: PULSE 74
[2018-06-01] MEDS: Aztreonam 1 GM in Sodium Chloride 0.9% 100 ML IVPB SCH ×2 (03:04→11:02)
[2018-06-01] MEDS: Oxycodone/Acetaminophen 5/325 mg Tab PO PRN ×2 (04:35→09:10)
[2018-06-01 09:01] VITALS: BP 104/62; TEMP 98.5; O2SAT 96
[2018-06-01] MEDS: Pantoprazole 40 mg EC Tab PO SCH (09:10)
[2018-06-01] MEDS: raNITIdine HCl 150 mg/10 ml Soln Cup PO SCH (09:12)
[2018-06-01] MEDS: Saccharomyces Boulardi 250 mg Cap PO SCH (09:12)
== END 2018-06-01 16:08 | disposition home or self-care (01) | DRG 571 ==
LOC: C.ER 11:00 → C.9E 13:23 → C.3T 17:59
PROVIDERS: ADMIT Surgery; ATTEND Surgery
PROC: 0JBC0ZZ Excision of Pelvic Region Subcutaneous Tissue and Fascia, Open Approach (ICD-10-PCS; principal; 2018-05-24 10:45)
PROC: 0JDC0ZZ Extraction of Pelvic Region Subcutaneous Tissue and Fascia, Open Approach (ICD-10-PCS; 2018-05-28)
PROC: 0JDC0ZZ Extraction of Pelvic Region Subcutaneous Tissue and Fascia, Open Approach (ICD-10-PCS; 2018-05-30)
DX: L72.0 Epidermal cyst (principal); L02.214 Cutaneous abscess of groin; L03.314 Cellulitis of groin; J45.909 Unspecified asthma, uncomplicated; I10 Essential (primary) hypertension; G89.29 Other chronic pain; F17.210 Nicotine dependence, cigarettes, uncomplicated; F12.90 Cannabis use, unspecified, uncomplicated; K52.9 Noninfective gastroenteritis and colitis, unspecified; L73.2 Hidradenitis suppurativa

== ENCOUNTER 2018-06-17 11:57 | Inpatient (IN) | payer BC, MEDICAID ==
[2018-06-17 11:57] VITALS: BMI 33.4
[2018-06-17] MEDS ORDERED: Sodium Chloride 0.9% 1,000 ML IV ONE (13:10)
--- NOTE | 2018-06-17 13:22 | C.PDOC ---
History Of Present Illness 37yo female, with history of hidradenitis suppurativa, asthma, and gastritis comes to ER reporting right inguinal pain. Patient states she has recurrent abscesses to b/l inguinal areas. Patient was seen by Dr. Siddiqui in the office last week and referred to the ER for further evaluation. Pt admits to multiple ho surgeries to the area. Time Seen by Provider: 06/17/18 12:33 Chief Complaint (Nursing): Medical Clearance History Per: Patient History/Exam Limitations: no limitations Onset/Duration Of Symptoms: Intermittent Episodes Current Symptoms Are (Timing): Still Present Additional History Per: Patient Past Medical History Reviewed: Historical Data, Nursing Documentation, Vital Signs Vital Signs: Last Vital Signs Temp 98.3 F 06/19/18 17:45 Pulse 66 06/19/18 17:45 Resp 20 06/19/18 17:45 BP 105/66 06/19/18 17:45 Pulse Ox 100 06/19/18 17:45 - Medical History PMH: Anxiety, Asthma, Gastritis, Gall Bladder Disease, Pneumonia (MID. 2016) Denies: Chronic Kidney Disease Other PMH: hidranitis suppurativa Surgical History: Cholecystectomy, Endoscopy, Tonsillectomy, (Myomectomy) - [facility] Procedures DRAINAGE OF GENITALIA SKIN, EXTERNAL APPROACH (04/17/18) DRAINAGE OF LEFT INGUINAL REGION, OPEN APPROACH (04/17/18) DRAINAGE OF PELVIC SUBCU/FASCIA, OPEN APPROACH (03/07/18) DRAINAGE OF PERINEUM SKIN, EXTERNAL APPROACH (04/19/16) DRAINAGE OF RETROPERITONEUM, OPEN APPROACH, DIAGNOSTIC (04/17/18) DRAINAGE OF RIGHT INGUINAL REGION, OPEN APPROACH (04/17/18) EXCISION OF GENITALIA SKIN, EXTERNAL APPROACH (03/25/18) EXCISION OF LEFT UPPER LEG SKIN, EXTERNAL APPROACH (04/17/18) EXCISION OF PELVIC SUBCU/FASCIA, OPEN APPROACH (05/24/18) EXCISION OF RIGHT UPPER LEG SKIN, EXTERNAL APPROACH (04/17/18) EXCISION OF UTERUS, OPEN APPROACH (04/19/16) EXTRACTION OF GENITALIA SKIN, EXTERNAL APPROACH (04/28/18) EXTRACTION OF LEFT UPPER LEG SKIN, EXTERNAL APPROACH (04/17/18) EXTRACTION OF PELVIC SUBCU/FASCIA, OPEN APPROACH (05/24/18) EXTRACTION OF RIGHT UPPER LEG SKIN, EXTERNAL APPROACH (04/17/18) REPLACE L UP LEG SKIN W AUTOL SUB, PART THICK, AUTOMATIC OUTSOLE CUTTER (04/17/18) REPLACE R UP LEG SKIN W AUTOL SUB, PART THICK, AUTOMATIC OUTSOLE CUTTER (04/17/18) TRANSFER ABDOMEN SKIN, EXTERNAL APPROACH (04/17/18) TRANSFER GENITALIA SKIN, EXTERNAL APPROACH (04/28/18) TRANSFER LEFT UPPER LEG SKIN, EXTERNAL APPROACH (04/17/18) TRANSFER RIGHT UPPER LEG SKIN, EXTERNAL APPROACH (04/17/18) Family History: States: Unknown Family Hx - Social History Hx Tobacco Use: Yes Hx Alcohol Use: Yes Hx Substance Use: No - Immunization History Hx Tetanus Toxoid Vaccination: Yes Hx Influenza Vaccination: No Hx Pneumococcal Vaccination: No Review Of Systems Constitutional: Negative for: Fever, Chills Cardiovascular: Negative for: Chest Pain Respiratory: Negative for: Shortness of Breath Gastrointestinal: Negative for: Abdominal Pain Skin: Positive for: Other (abscess to right inguinal area with pain) Physical Exam - Physical Exam Appears: Non-toxic, No Acute Distress Skin: Warm, Other ((+) bilateral inguinal tenderness, right > left, with induration, tenderness and swelling. No fluctuance, (+) serosanguinous drainage) Head: Atraumatic, Normacephalic Eye(s): bilateral: Normal Inspection, EOMI Nose: Normal Oral Mucosa: Moist Neck: Normal ROM, Supple Chest: Symmetrical Cardiovascular: Rhythm Regular Respiratory: Normal Breath Sounds Gastrointestinal/Abdominal: Normal Exam, Soft, No Tenderness, No Mass, No Guarding, No Rebound Back: Normal Inspection Extremity: Normal ROM, No Pedal Edema Neurological/Psych: Oriented x3 ED Course And Treatment - Laboratory Results Result Diagrams: 06/19/18 08:20 06/19/18 08:20 O2 Sat by Pulse Oximetry: 100 (RA) Pulse Ox Interpretation: Normal Progress Note: Labs and Urinalysis ordered. Case discussed with Dr. Siddiqui, who is agreeable with plan for admission. Disposition - Disposition Disposition: HOSPITALIZED Disposition Time: 16:00 Condition: STABLE - Clinical Impression Clinical Impression: Hidradenitis suppurativa, Abscess of groin, right - PA / PENSION ADVISER / Resident Statement MD/DO has reviewed & agrees with the documentation as recorded. - Scribe Statement The provider has reviewed the documentation as recorded by the Jennifer Morales Provider Attestation: All medical record entries made by the Scribe were at my direction and personally dictated by me. I have reviewed the chart and agree that the record accurately reflects my personal performance of the history, physical exam, medical decision making, and the department course for this patient. I have also personally directed, reviewed, and agree with the discharge instructions and disposition.
[2018-06-17] MEDS ORDERED: Sodium Chloride 0.9% 1,000 ML ONE (13:32)
[2018-06-17 14:08] LABS: BASO # 0.1 K/uL (0.0-0.2); EOS # 0.1 K/uL (0.0-0.7); EOS % 2.2 % (0.0-4.0); LYMPH # 2.5 K/uL (1.0-4.3); LYMPH % 46.2 % (20.0-40.0); MEAN CORPUSCULAR HEMOGLOBIN 31.2 pg (27.0-31.0); MEAN CORPUSCULAR HGB CONC 35.7 g/dL (33.0-37.0); MEAN PLATELET VOLUME 7.3 fL (7.2-11.7); MONO # 0.4 K/uL (0.0-0.8); MONO % 7.3 % (0.0-10.0); NEUT # 2.4 K/uL (1.8-7.0); NEUT % 43.3 % (50.0-75.0); RBC 3.53 Mil/uL (3.80-5.20); RED CELL DISTRIBUTION WIDTH 14.6 % (11.5-14.5); WHITE BLOOD COUNT 5.5 K/uL (4.8-10.8)
[2018-06-17 14:13] LABS: MEAN CELL VOLUME 87.4 fL (81.0-99.0)
[2018-06-17 14:17] LABS: ALB/GLOB RATIO 1.2 (1.0-2.1); ALBUMIN 4.6 g/dL (3.5-5.0); ALT/SGPT 23 U/L (9-52); AST/SGOT 27 U/L (14-36); BLOOD UREA NITROGEN 11 mg/dL (7-17); CALCIUM 9.4 mg/dl (8.6-10.4); GFR NON-AFRICAN AMERICAN > 60; INR 1.1; PROTHROMBIN TIME 11.5 SECONDS (9.7-12.2)
[2018-06-17 14:29] LABS: HCG,QUALITATIVE URINE NEGATIVE (NEGATIVE)
[2018-06-17 14:33] LABS: SQUAMOUS EPITHIAL 1 /hpf (0-5); URINE BILIRUBIN NEGATIVE (NEGATIVE); URINE BLOOD NEGATIVE (NEGATIVE); URINE CLARITY Clear (Clear); URINE COLOR Yellow (YELLOW); URINE GLUCOSE (UA) NORMAL (Normal); URINE LEUKOCYTE ESTERASE NEG Leu/uL (Negative); URINE PROTEIN NEGATIVE (NEGATIVE); URINE UROBILINOGEN NORMAL mg/dL (0.2-1.0)
[2018-06-17] MEDS ORDERED: Midazolam 2 MG/2 ML VIAL ONE (14:59)
[2018-06-17] MEDS ORDERED: Propofol 10 mg/ml Inj (20 ML) ONE (14:59)
[2018-06-17] MEDS ORDERED: Piperacillin/Tazobact 3.375 gm 0 ML IVPB ONE (15:12)
[2018-06-17] MEDS ORDERED: Doxycycline 100 mg Inj ONE (15:14)
[2018-06-17] MEDS: Dextrose 5%/0.45% NS 1,000 ML IV SCH (18:57)
[2018-06-17] MEDS: Oxycodone/Acetaminophen 5/325 mg Tab PO PRN (20:30)
[2018-06-18] MEDS: Oxycodone/Acetaminophen 5/325 mg Tab PO PRN ×2 (00:37→08:28)
[2018-06-18] MEDS: Dextrose 5%/0.45% NS 1,000 ML IV SCH ×2 (05:15→18:14)
--- NOTE | 2018-06-18 05:24 | OP ---
PROCEDURE DATE: 06/17/2018 PREOPERATIVE DIAGNOSIS: Infected bilateral groin masses. POSTOPERATIVE DIAGNOSIS: Infected bilateral groin masses. PROCEDURES PERFORMED: Radical resection of infected groin masses, bilateral (5 x 8 cm on the left and 5 x 3 cm on the right). SURGEON: Nitish Siddiqui MD ANESTHESIA: General endotracheal. ESTIMATED BLOOD LOSS: 40 mL. POSTOPERATIVE CONDITION: Stable. INDICATIONS FOR SURGERY: This is a 37-year-old female with multiple infected abscesses of the right groin bilaterally. She has undergone multiple I and Ds and is healing by secondary intention. She has also developed retroperitoneal abscesses and has had multiple infections over the past several months, requiring hospitalization and surgery. Today, she presents with new infections, and the decision has been made to do definitive surgery to excise the whole infected area bilaterally in the groins. DESCRIPTION OF PROCEDURE: The patient was taken to the operating room. General anesthesia was administered. She was placed in a modified frog position, and both groins were prepped and draped. Transverse elliptical incisions were made bilaterally in the groins. A large wedge of infected tissue was removed into the fascial layer bilaterally. Bleeding was controlled using a Bovie, and larger blood vessels were repaired. Partial tissue flap closures and partial advancement flap closures were performed bilaterally totaling 42 sq cm. The central portions of both wounds were left open and packed with saline gauze. The patient tolerated the procedure well and returned to recovery room in stable condition. Nitish Siddiqui MD
[2018-06-18 06:24] LABS: BASO % 0.7 % (0.0-2.0); EOS # 0.2 K/uL (0.0-0.7); EOS % 2.8 % (0.0-4.0); HEMOGLOBIN 9.5 g/dL (11.0-16.0); LYMPH # 3.5 K/uL (1.0-4.3); LYMPH % 56.2 % (20.0-40.0); MEAN CELL VOLUME 90.3 fL (81.0-99.0); MEAN CORPUSCULAR HEMOGLOBIN 31.2 pg (27.0-31.0); MEAN CORPUSCULAR HGB CONC 34.5 g/dL (33.0-37.0); MEAN PLATELET VOLUME 7.4 fL (7.2-11.7); MONO # 0.5 K/uL (0.0-0.8); MONO % 8.2 % (0.0-10.0); NEUT % 32.1 % (50.0-75.0); RBC 3.04 Mil/uL (3.80-5.20); RED CELL DISTRIBUTION WIDTH 14.4 % (11.5-14.5); WHITE BLOOD COUNT 6.2 K/uL (4.8-10.8)
[2018-06-18 06:45] LABS: BLOOD UREA NITROGEN 13 mg/dL (7-17); CALCIUM 8.3 mg/dl (8.6-10.4); GFR NON-AFRICAN AMERICAN > 60
[2018-06-18] MEDS: Enoxaparin 40 mg Syringe SC SCH (10:00)
--- NOTE | 2018-06-18 11:33 | CP.PCM.PN ---
Subjective - Date & Time of Evaluation Date of Evaluation: 06/18/18 Time of Evaluation: 11:25 - Subjective Subjective: Medicine progress note for Dr. Diehl's Service 37 year old female with PMH suppurative hydradenitis, gastritis, asthma, anxiety, bilateral inguinal abscesses, and disc herniations who returns to the hospital for surgery for recurrent abscess. She presented under the care of Dr. Siddiqui. She underwent I&D on 06/17 and will undergo another I&D today for the groin abscess which will make this a total of [address] Siddiqui since December 2017 for this issue. PMH: suppurative hydradenitis, gastritis, asthma, anxiety, right and left inguinal abscesses, disc herniations PSxH: Cholecystectomy, Endoscopy, Tonsillectomy, (Myomectomy) DRAINAGE OF LEFT INGUINAL REGION, OPEN APPROACH (01/07/18) DRAINAGE OF PERINEUM SKIN, EXTERNAL APPROACH (04/19/16) DRAINAGE OF RIGHT INGUINAL REGION, OPEN APPROACH (01/07/18) EXCISION OF UTERUS, OPEN APPROACH (04/19/16) Med: Ranitidine, Protonix, Bentyl, Xyzal, Atarax, Xanax All: adhesive tape, ciprofloxacin, ciprofloxacin HCl, levaquin, bactrim OB: uterine fibroid removal SocHx: Tobacco- 14 years, 3 days/pack; drinks socially 5 drinks per event; Drugs:smokes marijuana joint; lives at home with sister and nieces/nephews; works at an [employer] FamHx: non-contributory PMD: Dr. Diehl Full Code Objective - Vital Signs/Intake and Output Vital Signs (last 24 hours): Temp Pulse Resp BP Pulse Ox 97.5 F L 70 20 108/68 100 06/18/18 00:39 06/18/18 00:39 06/18/18 00:39 06/18/18 00:39 06/18/18 00:39 - Medications Medications: Current Medications Alprazolam (Xanax) 1 mg PO BID PRN PRN Reason: Anxiety Last Admin: 06/18/18 02:45 Dose: 1 mg Dicyclomine HCl (Bentyl) 10 mg PO Q6 ROGERIO Last Admin: 06/18/18 05:56 Dose: 10 mg Docusate Sodium (Colace) 100 mg PO BID ROGERIO Last Admin: 06/17/18 18:54 Dose: 100 mg Enoxaparin Sodium (Lovenox) 40 mg SC DAILY [facility] Famotidine (Pepcid) 40 mg PO BID [facility] Last Admin: 06/17/18 20:00 Dose: 40 mg Fentanyl (Fentanyl) 25 mcg IVP Q15MIN PRN PRN Reason: Pain, moderate (4-7) Last Admin: 06/17/18 16:48 Dose: 25 mcg Hydroxyzine HCl (Atarax) 50 mg PO Q8 PRN PRN Reason: Allergy symptoms Last Admin: 06/17/18 21:57 Dose: 50 mg Dextrose/Sodium Chloride (Dextrose 5%/0.45% Ns 1000 Ml) 1,000 mls @ 80 mls/hr IV .[id number] [facility] Last Admin: 06/18/18 05:15 Dose: Not Given Doxycycline Hyclate 100 mg/ (Sodium Chloride) 100 mls @ 100 mls/hr IVPB Q12H [facility]; Protocol Last Admin: 06/18/18 03:02 Dose: 100 mls/hr Ketorolac Tromethamine (Toradol) 30 mg IVP Q6 PRN PRN Reason: pain 8-10 Stop: 06/22/18 16:35 Last Admin: 06/18/18 05:45 Dose: 30 mg Loratadine (Claritin) 10 mg PO DAILY [facility] Last Admin: 06/17/18 20:00 Dose: 10 mg Oxycodone/Acetaminophen (Percocet 5/325 Mg Tab) 2 tab PO Q4H PRN PRN Reason: pain Stop: 06/20/18 16:35 Last Admin: 06/18/18 08:28 Dose: 2 tab Pantoprazole Sodium (Protonix Inj) 40 mg IVP DAILY [facility] - Labs Labs: 06/18/18 06:14 06/18/18 06:14 PT 11.5 SECONDS (9.7-12.2) 06/17/18 13:52 INR 1.1 06/17/18 13:52 APTT 34 SECONDS (21-34) 06/17/18 13:52 - Constitutional Appears: No Acute Distress - Head Exam Head Exam: ATRAUMATIC, NORMOCEPHALIC - Eye Exam Eye Exam: EOMI, Normal appearance - ENT Exam ENT Exam: Mucous Membranes Moist - Respiratory Exam Respiratory Exam: Clear to Ausculation Bilateral, NORMAL BREATHING PATTERN - Cardiovascular Exam Cardiovascular Exam: REGULAR RHYTHM, +S1, +S2 - GI/Abdominal Exam GI & Abdominal Exam: Soft, Tenderness - Neurological Exam Neurological Exam: Alert, Awake, Oriented x3 - Psychiatric Exam Psychiatric exam: Normal Affect, Normal Mood - Skin Additional comments: WOUND DRESSING IS SATURATED WITH SEROSANGUINOUS DISCHARGE Assessment and Plan - Assessment and Plan (Free Text) Plan: Bilateral Groin Abscesses - Chronic infection to this location with multiple I&D's in the past. OR on 06/17/18 and repeat I&D today, 06/18/18 - per Dr. Siddiqui: - Colace 100mg po bid - Percocet 2 tab po q4 prn - Toradol 30mg IVP q6hrs prn - morphine 5mg IVP prn severe pain - morphine 2mg IVP q10min prn severe pain - Doxycycline 100mg q12hrs - antibiotics per ID: Dr. Gastelum: Linezolid 600mg IVPB q12 - groin wound on previous admissions have grown Acinetobacter Baumannii, E. Coli, pseudomonas and Proteus Mirabilis Cx 05/29/18: pseudomonas and E. coli Follow up Cx collected 06/17/18 -Afebrile -Normal WBC Chronic Diarrhea - Continue Home Bentyl 10mg po q6 Pruritus/Seasonal Allergies - Continue Home Atarax 50mg po q8 - Continue Home Claritin 10 mg po daily Anxiety - Continue Home Xanax 1mg po bid Prophylaxis - DVT: per Surgery: Lovenox 40mg SC daily - hold prior to surgery - Protonix 40mg IV daily - Florastor 250mg po bid - Zofran PRN nausea - PT eval Case discussed with Dr. Diehl All medical management as per Dr. Diehl
--- NOTE | 2018-06-18 12:26 | CP.PCM.CON ---
History of Present Illness - History of Present Illness History of Present Illness: 37 y/o female presents to ED with complaints of painful swelling both right and left groin due to recurrent hydradenitis Hx of multiple admissions - recently had groin wounds drained started on empiric IV rx - Medical History PMH: Anxiety, Asthma, Gastritis, Gall Bladder Disease, Pneumonia ([id number]) Surgical History: Cholecystectomy, Endoscopy, Tonsillectomy, (Myomectomy) - [facility] Procedures DRAINAGE OF LEFT INGUINAL REGION, OPEN APPROACH (01/07/18) DRAINAGE OF PERINEUM SKIN, EXTERNAL APPROACH (04/19/16) DRAINAGE OF RIGHT INGUINAL REGION, OPEN APPROACH (01/07/18) EXCISION OF UTERUS, OPEN APPROACH (04/19/16) Review of Systems - Review of Systems All systems: reviewed and no additional remarkable complaints except - Constitutional Constitutional: As Per HPI - EENT Eyes: absent: As Per HPI, Blind Spots, Blurred Vision, Change in Vision, Decreased Night Vision, Diplopia, Discharge, Dry Eye, Exophthalmos, Floaters, Irritation, Itchy Eyes, Loss of Peripheral Vision, Pain, Photophobia, Requires Corrective Lenses, Sees Flashes, Spots in Vision, Tunnel Vision, Other Visual Disturbances, Loss of Vision, Other Ears: absent: As Per HPI, Decreased Hearing, Ear Discharge, Ear Pain, Tinnitus, Abnormal Hearing, Disequilibrium, Dizziness, Other Nose/Mouth/Throat: absent: As Per HPI, Epistaxis, Nasal Congestion, Nasal Discharge, Nasal Obstruction, Nasal Trauma, Nose Pain, Post Nasal Drip, Sinus Pain, Sinus Pressure, Bleeding Gums, Change in Voice, Dental Pain, Dry Mouth, Dysphagia, Halitosis, Hoarsness, Lip Swelling, Mouth Lesions, Mouth Pain, Odynophagia, Sore Throat, Throat Swelling, Tongue Swelling, Facial Pain, Neck Pain, Neck Mass, Other - Breasts Breasts: absent: As Per HPI, Change in Shape, Mass, Pain, Nipple Discharge, Nipple Inversion, Skin Changes, Swelling, Other - Cardiovascular Cardiovascular: absent: As Per HPI, Acrocyanosis, Chest Pain, Chest Pain at Rest, Chest Pain with Activity, Claudication, Diaphoresis, Dyspnea, Dyspnea on Exertion, Edema, Irregular Heart Rhythm, Pain Radiating to Arm/Neck/Jaw, Leg Edema, Leg Ulcers, Lightheadedness, Orthopnea, Palpitations, Paroxysmal Nocturnal Dyspnea, Pedal Edema, Radiating Pain, Rapid Heart Rate, Slow Heart Rate, Syncope, Other - Respiratory Respiratory: absent: As Per HPI, Cough, Dyspnea, Hemoptysis, Dyspnea on Exertion, Wheezing, Snoring, Stridor, Pain on Inspiration, Chest Congestion, Excessive Mucous Production, Change in Mucous Color, Pain with Coughing, Other - Gastrointestinal Gastrointestinal: absent: As Per HPI, Abdominal Pain, Belching, Bloating, Change in Bowel Habits, Change in Stool Character, Coffee Ground Emesis, Constipation, Cramping, Diarrhea, Dyspepsia, Dysphagia, Early Satiety, Excessive Flatus, Fecal Incontinence, Heartburn, Hematemesis, Hematochezia, Loose Stools, Melena, Nausea, Odynophagia, Temesmus, Vomiting, Other - Genitourinary Genitourinary: absent: As Per HPI, Change in Urinary Stream, Difficulty Urinating, Dysuria, Flank Pain, Hematuria, Pyuria, Nocturia, Urinary Incontinence, Urinary Frequency, Urinary Hesitance, Urinary Urgency, Voiding Freq/Small Amts, Freq UTI, Hx Renal/Bladder Calculi, Hx /Renal Surgery, Bladder Distension, Other - Reproductive: Female Reproductive:Female: absent: As Per HPI, Amenorrhea, Amenorrhea/ Control, Currently Menstual, Cycle <21 Days, Cycle >35 Days, Cycle Variable, Menses 1-7 Days, Menses >/= 8 Days, Menses Variable, Cycle > 4 Weeks Between, No Menses for 6 Months, Heavy Menses, Light Menses, Normal Menses, Spotting Between Cycles, S/P Hysterectomy, Menopausal, Post Menopausal, Premenarche, Abnormal Vaginal Bleeding, Dysmenorrhea, Dyspareunia, Genital Lesions, Genital Pruritis, Pelvic Pain, Prolapse Symptoms, Sexual Dysfunction, Vaginal Discharge, Vaginal Dryness, Vaginal Odor, Vaginal Pruritis, Other - Menstruation Menstruation: absent: As Per HPI, Amenorrhea, Amenorrhea/ Control, Currently Menstual, Cycle <21 Days, Cycle >35 Days, Cycle Variable, Menses 1-7 Days, Menses >/= 8 Days, Menses Variable, Cycle > 4 Weeks Between, No Menses for 6 Months, Heavy Menses, Light Menses, Normal Menses, Spotting Between Cycles, S/P Hysterectomy, Menopausal, Post Menopausal, Premenarche, Abnormal Vaginal Bleeding, Dysmenorrhea, Other - Musculoskeletal Musculoskeletal: absent: As Per HPI, Abnormal Gait, Arthralgias, Atrophy, Back Pain, Deformity, Joint Swelling, Limited Range of Motion, Loss of Height, Muscle Cramps, Muscle Weakness, Myalgias, Neck Pain, Numbness, Radiating Pain into Limb, Stiffness, Tingling, Other - Integumentary Integumentary: As Per HPI, Skin Pain, Wounds - Neurological Neurological: absent: As Per HPI, Abnormal Gait, Abnormal Hearing, Abnormal Movements, Abnormal Speech, Behavioral Changes, Burning Sensations, Confusion, Convulsions, Disequilibrium, Dizziness, Numbness, Focal Weakness, Frequent Falls, Headaches, Lack of Coordination, Loss of Vision, Memory Loss, Paresthesias, Radicular Pain, Restless Legs, Sensory Deficit, Syncope, Tingling, Tremor, Vertigo, Weakness, Other Visual Disturbances, Other - Psychiatric Psychiatric: absent: As Per HPI, Abnormal Sleep Pattern, Anhedonia, Anxiety, Auditory Hallucinations, Behavioral Changes, Change in Appetite, Change in Libido, Confusion, Depression, Difficulty Concentrating, Hallucinations, Homicidal Ideation, Hopelessness, Irritability, Memory Loss, Mood Swings, Panic Attacks, Paranoia, Suicidal Ideation, Visual Hallucinations, Tactile Hallucinations, Other - Endocrine Endocrine: absent: As Per HPI, Change in Body Appearance, Change in Libido, Cold Intolorance, Deepening of Voice, Excessive Sweating, Fatigue, Flushing, Heat Intolorance, Increase in Ring/Shoe/Hat Size, Palpitations, Polydipsia, Polyphagia, Polyuria, Other - Hematologic/Lymphatic Hematologic: absent: As Per HPI, Easy Bleeding, Easy Bruising, Lymphadenopathy, Other Past Patient History - Infectious Disease Hx of Infectious Diseases: None - Past Medical History & Family History Past Medical History?: Yes - Past Social History Smoking Status: Light Smoker < 10 Cigarettes Daily - CARDIAC Hx Cardiac Disorders: No - PULMONARY Hx Asthma: Yes Hx Pneumonia: Yes (2016) - NEUROLOGICAL Hx Neurological Disorder: No - HEENT Hx HEENT Problems: No - RENAL Hx Chronic Kidney Disease: No - ENDOCRINE/METABOLIC Hx Endocrine Disorders: No - HEMATOLOGICAL/ONCOLOGICAL Hx Blood Disorders: No - INTEGUMENTARY Hx Dermatological Problems: Yes Other/Comment: HX: MASS RIGHT GROIN - MUSCULOSKELETAL/RHEUMATOLOGICAL Hx Falls: No - GASTROINTESTINAL Hx Gall Bladder Disease: Yes Hx Gastritis: Yes - GENITOURINARY/GYNECOLOGICAL Hx Genitourinary Disorders: Yes Hx Reproductive Disorders: Yes Other/Comment: HX: FIBROID UTERUS - PSYCHIATRIC Hx Anxiety: Yes Hx Substance Use: No - SURGICAL HISTORY Hx Cholecystectomy: Yes Hx Tonsillectomy: Yes Other/Comment: breast reduction 2006 - ANESTHESIA Hx Anesthesia: Yes Hx Anesthesia Reactions: No Hx Malignant Hyperthermia: No Has any member of the family had a problem w/ anesthesia?: No Meds Allergies/Adverse Reactions: Allergies Allergy/AdvReac Type Severity Reaction Status Date / Time adhesive tape Allergy Severe RASH Verified 06/17/18 12:19 ciprofloxacin [From Cipro] Allergy Intermediate RASH Verified 06/17/18 12:19 ciprofloxacin HCl Allergy Intermediate RASH Verified 06/17/18 12:19 [From Cipro] hydromorphone HCl Allergy Intermediate RASH Verified 06/17/18 12:19 [From Dilaudid] Penicillins Allergy Intermediate RASH Verified 06/17/18 12:19 shrimp Allergy Intermediate RASH Verified 06/17/18 12:19 sulfamethoxazole Allergy Intermediate RASH Verified 06/17/18 12:19 [From Bactrim] trimethoprim [From Bactrim] Allergy Intermediate RASH Verified 06/17/18 12:19 levofloxacin [From Levaquin] Allergy Verified 06/17/18 12:19 doxycycline AdvReac RASH, Verified 06/17/18 12:19 ITCHINESS, THROAT SWELLING - Medications Medications: Current Medications Alprazolam (Xanax) 1 mg PO BID PRN PRN Reason: Anxiety Last Admin: 06/18/18 02:45 Dose: 1 mg Dicyclomine HCl (Bentyl) 10 mg PO Q6 [facility] Last Admin: 06/18/18 05:56 Dose: 10 mg Docusate Sodium (Colace) 100 mg PO BID [facility] Last Admin: 06/17/18 18:54 Dose: 100 mg Enoxaparin Sodium (Lovenox) 40 mg SC DAILY [facility] Famotidine (Pepcid) 40 mg PO BID [facility] Last Admin: 06/17/18 20:00 Dose: 40 mg Fentanyl (Fentanyl) 25 mcg IVP Q15MIN PRN PRN Reason: Pain, moderate (4-7) Last Admin: 06/17/18 16:48 Dose: 25 mcg Hydroxyzine HCl (Atarax) 50 mg PO Q8 PRN PRN Reason: Allergy symptoms Last Admin: 06/17/18 21:57 Dose: 50 mg Dextrose/Sodium Chloride (Dextrose 5%/0.45% Ns 1000 Ml) 1,000 mls @ 80 mls/hr IV .[id number] [facility] Last Admin: 06/18/18 05:15 Dose: Not Given Doxycycline Hyclate 100 mg/ (Sodium Chloride) 100 mls @ 100 mls/hr IVPB Q12H [facility]; Protocol Last Admin: 06/18/18 03:02 Dose: 100 mls/hr Ketorolac Tromethamine (Toradol) 30 mg IVP Q6 PRN PRN Reason: pain 8-10 Stop: 06/22/18 16:35 Last Admin: 06/18/18 05:45 Dose: 30 mg Loratadine (Claritin) 10 mg PO DAILY [facility] Last Admin: 06/17/18 20:00 Dose: 10 mg Oxycodone/Acetaminophen (Percocet 5/325 Mg Tab) 2 tab PO Q4H PRN PRN Reason: pain Stop: 06/20/18 16:35 Last Admin: 06/18/18 08:28 Dose: 2 tab Pantoprazole Sodium (Protonix Inj) 40 mg IVP DAILY [facility] Physical Exam - Constitutional Appears: No Acute Distress, Chronically Ill - Head Exam Head Exam: NORMAL INSPECTION - Eye Exam Eye Exam: absent: Scleral icterus - ENT Exam ENT Exam: Mucous Membranes Dry - Neck Exam Neck exam: Negative for: Lymphadenopathy - Respiratory Exam Respiratory Exam: Decreased Breath Sounds, Clear to Auscultation Bilateral - Cardiovascular Exam Cardiovascular Exam: REGULAR RHYTHM, +S1, +S2 - GI/Abdominal Exam GI & Abdominal Exam: Diminished Bowel Sounds, Soft. absent: Tenderness - Rectal Exam Rectal Exam: Deferred - Exam Exam: NORMAL INSPECTION - Extremities Exam Extremities exam: Positive for: pedal pulses present. Negative for: calf tenderness, pedal edema, tenderness - Back Exam Back exam: absent: CVA tenderness (L), CVA tenderness (R) - Neurological Exam Neurological exam: Alert, CN II-XII Intact, Oriented x3, Reflexes Normal - Psychiatric Exam Psychiatric exam: Normal Mood - Skin Skin Exam: Dry Additional comments: wounds packed / covered s/p OR Results - Vital Signs Recent Vital Signs: Last Vital Signs Temp 97.5 F L 06/18/18 00:39 Pulse 70 06/18/18 00:39 Resp 20 06/18/18 00:39 BP 108/68 06/18/18 00:39 Pulse Ox 100 06/18/18 00:39 - Labs Result Diagrams: 06/18/18 06:14 06/18/18 06:14 Labs: Laboratory Results - last 24 hr 06/17/18 06/17/18 06/17/18 13:52 13:52 13:52 WBC 5.5 RBC 3.53 L Hgb 11.0 D Hct 30.9 L MCV 87.4 D MCH 31.2 H MCHC 35.7 RDW 14.6 H Plt Count 581 H D MPV 7.3 Neut % (Auto) 43.3 L Lymph % (Auto) 46.2 H [place] % (Auto) 7.3 Eos % (Auto) 2.2 Baso % (Auto) 1.0 Neut # (Auto) 2.4 Lymph # (Auto) 2.5 [place] # (Auto) 0.4 Eos # (Auto) 0.1 Baso # (Auto) 0.1 PT 11.5 INR 1.1 APTT 34 Sodium 140 Potassium 4.1 Chloride 106 Carbon Dioxide 22 Anion Gap 16 BUN 11 Creatinine 0.7 Est GFR ( Amer) > 60 Est GFR (Non-Af Amer) > 60 Random Glucose 97 Calcium 9.4 Total Bilirubin 0.4 AST 27 ALT 23 Alkaline Phosphatase 66 Total Protein 8.4 H Albumin 4.6 Globulin 3.8 Albumin/Globulin Ratio 1.2 Urine Color Urine Clarity Urine pH Ur Specific [place] Urine Protein Urine Glucose (UA) Urine Ketones Urine Blood Urine Nitrate Urine Bilirubin Urine Urobilinogen Ur Leukocyte Esterase Urine RBC (Auto) Ur Squamous Epith Cells Urine HCG, Qual 06/17/18 06/18/18 06/18/18 13:52 06:14 06:14 WBC 6.2 RBC 3.04 L Hgb 9.5 L Hct 27.5 L MCV 90.3 D MCH 31.2 H MCHC 34.5 RDW 14.4 Plt Count 473 H D MPV 7.4 Neut % (Auto) 32.1 L Lymph % (Auto) 56.2 H [place] % (Auto) 8.2 Eos % (Auto) 2.8 Baso % (Auto) 0.7 Neut # (Auto) 2.0 Lymph # (Auto) 3.5 [place] # (Auto) 0.5 Eos # (Auto) 0.2 Baso # (Auto) 0.0 PT INR APTT Sodium 139 Potassium 3.8 Chloride 107 Carbon Dioxide 23 Anion Gap 12 BUN 13 Creatinine 0.8 Est GFR ( Amer) > 60 Est GFR (Non-Af Amer) > 60 Random Glucose 96 Calcium 8.3 L Total Bilirubin AST ALT Alkaline Phosphatase Total Protein Albumin Globulin Albumin/Globulin Ratio Urine Color Yellow Urine Clarity Clear Urine pH 5.0 Ur Specific [place] 1.013 Urine Protein Negative Urine Glucose (UA) Normal Urine Ketones Negative Urine Blood Negative Urine Nitrate Negative Urine Bilirubin Negative Urine Urobilinogen Normal Ur Leukocyte Esterase Neg Urine RBC (Auto) < 1 Ur Squamous Epith Cells 1 Urine HCG, Qual Negative 06/18/18 06:55 WBC RBC Hgb Hct MCV MCH MCHC RDW Plt Count MPV Neut % (Auto) Lymph % (Auto) [place] % (Auto) Eos % (Auto) Baso % (Auto) Neut # (Auto) Lymph # (Auto) [place] # (Auto) Eos # (Auto) Baso # (Auto) PT INR APTT Sodium Potassium Chloride Carbon Dioxide Anion Gap BUN Creatinine Est GFR ( Amer) Est GFR (Non-Af Amer) Random Glucose Calcium Total Bilirubin AST ALT Alkaline Phosphatase Total Protein Albumin Globulin Albumin/Globulin Ratio Urine Color Urine Clarity Urine pH Ur Specific [place] Urine Protein Urine Glucose (UA) Urine Ketones Urine Blood Urine Nitrate Urine Bilirubin Urine Urobilinogen Ur Leukocyte Esterase Urine RBC (Auto) Ur Squamous Epith Cells Urine HCG, Qual Negative Assessment & Plan (1) Abscess Status: Acute (2) Abscess of groin, left Status: Acute (3) Abscess of groin, right Status: Acute - Assessment and Plan (Free Text) Assessment: await OR cultures cont IV antibiotics / wound care
[2018-06-18] MEDS ORDERED: Propofol 10 mg/ml Inj (20 ML) ONE (14:13)
[2018-06-18] MEDS ORDERED: Midazolam 2 MG/2 ML VIAL ONE (14:13)
[2018-06-18] MEDS: Saccharomyces Boulardi 250 mg Cap PO SCH (17:38)
[2018-06-18] MEDS: Morphine 4 MG/ML VIAL IVP PRN (21:35)
--- NOTE | 2018-06-19 02:49 | OP ---
PROCEDURE DATE: 06/18/2018 PREOPERATIVE DIAGNOSES: Large open wounds and groin abscess bilaterally. POSTOPERATIVE DIAGNOSES: Large open wounds and groin abscess bilaterally. PROCEDURE PERFORMED: Change of packing under anesthesia with drainage of bilateral groin abscesses, debridement and a partial tissue flap closure. SURGEON: Nitish Siddiqui MD. ANESTHESIA: General. BLOOD LOSS: 30 mL. POSTOPERATIVE CONDITION: Stable. INDICATIONS FOR SURGERY: This is a 37-year-old female who underwent a radical resection of bilateral groin infected masses yesterday, leaving large open wounds in the groin crease bilaterally. She now will undergo change of packing under anesthesia, debridement and drainage of any remaining collection. PROCEDURE: The patient was taken to the operating room. General anesthesia was administered and the groin areas were prepped and draped and the wounds were prepped and draped. The wounds were both aggressively debrided. Any remaining collections were drained and cultured. Bleeding was controlled using a Bovie and larger blood vessels were repaired. The wounds were then pulse irrigated with saline and Kantrex solution. Full-thickness tissue flaps were raised with counterincisions and partial tissue ____ closures were closed, were performed in the periphery of the wound totaling 20 sq cm. The central portion of wounds were packed open with wet saline gauze. The patient tolerated the procedure well, returned to recovery room in stable condition. Nitish Siddiqui MD
[2018-06-19] MEDS: Morphine 4 MG/ML VIAL IVP PRN ×2 (03:19→19:04)
--- NOTE | 2018-06-19 07:12 | CP.PCM.PN ---
Subjective - Date & Time of Evaluation Date of Evaluation: 06/19/18 Time of Evaluation: 07:00 - Subjective Subjective: PGY2 Progress Note Patient seen and examined at bedside and in no acute distress. Patient is feeling anxious about her groin abscesses. Patient to go to OR with Dr. Siddiqui today for debridement and cleaning. Patient denies any headache, shortness of breath, chest pain, abdominal pain, nausea, vomiting, diarrhea, or constipation. Objective - Vital Signs/Intake and Output Vital Signs (last 24 hours): Temp Pulse Resp BP Pulse Ox 99.8 F H 91 H 20 107/68 97 06/19/18 01:20 06/19/18 01:20 06/19/18 01:20 06/19/18 01:20 06/19/18 01:20 Intake and Output: 06/19/18 06/19/18 06:59 18:59 Intake Total 640 Output Total 700 Balance -60 - Medications Medications: Current Medications Alprazolam (Xanax) 1 mg PO BID PRN PRN Reason: Anxiety Last Admin: 06/19/18 06:05 Dose: 1 mg Dicyclomine HCl (Bentyl) 10 mg PO Q6 [facility] Last Admin: 06/19/18 06:05 Dose: 10 mg Docusate Sodium (Colace) 100 mg PO BID [facility] Last Admin: 06/18/18 17:38 Dose: 100 mg Enoxaparin Sodium (Lovenox) 40 mg SC DAILY [facility] Last Admin: 06/18/18 10:00 Dose: Not Given Famotidine (Pepcid) 20 mg PO BID [facility] Fentanyl (Fentanyl) 25 mcg IVP Q15MIN PRN PRN Reason: Pain, moderate (4-7) Last Admin: 06/17/18 16:48 Dose: 25 mcg Hydroxyzine HCl (Atarax) 50 mg PO Q8 PRN PRN Reason: Allergy symptoms Last Admin: 06/18/18 22:02 Dose: 50 mg Dextrose/Sodium Chloride (Dextrose 5%/0.45% Ns 1000 Ml) 1,000 mls @ 80 mls/hr IV .[id number] [facility] Last Admin: 06/18/18 18:14 Dose: 80 mls/hr Doxycycline Hyclate 100 mg/ (Sodium Chloride) 100 mls @ 100 mls/hr IVPB Q12H [facility]; Protocol Last Admin: 06/19/18 03:01 Dose: 100 mls/hr Ketorolac Tromethamine (Toradol) 30 mg IVP Q6 PRN PRN Reason: pain 8-10 Stop: 06/22/18 16:35 Last Admin: 06/18/18 13:33 Dose: 30 mg Loratadine (Claritin) 10 mg PO DAILY [facility] Last Admin: 06/17/18 20:00 Dose: 10 mg Morphine Sulfate (Morphine) 5 mg IVP Q4 PRN PRN Reason: Pain, severe (8-10) Last Admin: 06/19/18 03:19 Dose: 5 mg Ondansetron HCl (Zofran Inj) 4 mg IVP Q6H PRN PRN Reason: GI distress Last Admin: 06/19/18 03:35 Dose: 4 mg Oxycodone/Acetaminophen (Percocet 5/325 Mg Tab) 2 tab PO Q4H PRN PRN Reason: pain Stop: 06/20/18 16:35 Last Admin: 06/18/18 08:28 Dose: 2 tab Pantoprazole Sodium (Protonix Inj) 40 mg IVP DAILY [facility] Last Admin: 06/18/18 10:00 Dose: 40 mg Saccharomyces Boulardii (Florastor) 250 mg PO BID [facility] Last Admin: 06/18/18 17:38 Dose: 250 mg - Labs Labs: 06/18/18 06:14 06/18/18 06:14 PT 11.5 SECONDS (9.7-12.2) 06/17/18 13:52 INR 1.1 06/17/18 13:52 APTT 34 SECONDS (21-34) 06/17/18 13:52 - Constitutional Appears: Non-toxic, No Acute Distress - Head Exam Head Exam: ATRAUMATIC, NORMAL INSPECTION, NORMOCEPHALIC - Eye Exam Eye Exam: EOMI, Normal appearance - Respiratory Exam Respiratory Exam: Clear to Ausculation Bilateral, NORMAL BREATHING PATTERN. absent: Rhonchi, Wheezes - Cardiovascular Exam Cardiovascular Exam: REGULAR RHYTHM, RRR, +S1, +S2 - GI/Abdominal Exam GI & Abdominal Exam: Soft, Normal Bowel Sounds. absent: Tenderness - Exam Additional comments: b/l groin abscesses with c/d/i dressings - Extremities Exam Extremities Exam: Full ROM, Normal Inspection. 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 OR on 06/17/18 and repeat I&D today, 06/18/18, OR on 06/19/18 for cleaning of wounds - per Dr. Siddiqui: - Colace 100mg po bid - Percocet 2 tab po q4 prn - Toradol 30mg IVP q6hrs prn - morphine 5mg IVP prn severe pain - morphine 2mg IVP q10min prn severe pain - Doxycycline 100mg q12hrs - antibiotics per ID: Dr. Gastelum: Linezolid 600mg IVPB q12 - groin wound on previous admissions have grown Acinetobacter Baumannii, E. Coli, pseudomonas and Proteus Mirabilis Cx 05/29/18: pseudomonas and E. coli Follow up Cx collected 06/17/18 -Afebrile -Normal WBC Chronic Diarrhea - Continue Home Bentyl 10mg po q6h Pruritus/Seasonal Allergies - Continue Home Atarax 50mg po q8 - Continue Home Claritin 10 mg po daily Anxiety - Continue Home Xanax 1mg po bid Prophylaxis - DVT: per Surgery: Lovenox 40mg SC daily - hold prior to surgery - Protonix 40mg IV daily - Florastor 250mg po bid - Zofran PRN nausea - PT eval Case discussed with Dr. Diehl All medical management as per Dr. Diehl
--- NOTE | 2018-06-19 07:15 | HP ---
HISTORY OF PRESENT ILLNESS: Ms. Walker was admitted to the hospital with chief complaint of bilateral groin abscesses. The patient with history of suppurative hidradenitis which required multiple surgeries. Patient disease. She is taking . smoker. PHYSICAL EXAMINATION: GENERAL: The patient is awake, alert and oriented. VITAL SIGNS: Temperature 98, pulse 90. HEENT: Within normal limits. NECK: Supple. HEART: Regular. ABDOMEN: Soft. EXTREMITIES: Bilateral wounds in groin . No Edema. IMPRESSION: The patient with bilateral abscesses of the groin IV antibiotics. Incision and drainage by Dr. Siddiqui. Follow up closely. Viviane Diehl MD
[2018-06-19 08:43] LABS: BASO % 0.6 % (0.0-2.0); EOS # 0.2 K/uL (0.0-0.7); EOS % 2.3 % (0.0-4.0); HEMOGLOBIN 9.2 g/dL (11.0-16.0); LYMPH # 2.2 K/uL (1.0-4.3); LYMPH % 27.2 % (20.0-40.0); MEAN CELL VOLUME 89.4 fL (81.0-99.0); MEAN CORPUSCULAR HEMOGLOBIN 30.3 pg (27.0-31.0); MEAN CORPUSCULAR HGB CONC 33.9 g/dL (33.0-37.0); MEAN PLATELET VOLUME 7.5 fL (7.2-11.7); MONO # 0.8 K/uL (0.0-0.8); MONO % 9.7 % (0.0-10.0); NEUT % 60.2 % (50.0-75.0); RBC 3.02 Mil/uL (3.80-5.20); RED CELL DISTRIBUTION WIDTH 14.7 % (11.5-14.5); WHITE BLOOD COUNT 8.3 K/uL (4.8-10.8)
[2018-06-19 09:03] LABS: ALT/SGPT 24 U/L (9-52); AST/SGOT 12 U/L (14-36); BLOOD UREA NITROGEN 13 mg/dL (7-17); CALCIUM 8.1 mg/dl (8.6-10.4); GFR NON-AFRICAN AMERICAN > 60
[2018-06-19 09:16] LABS: ALBUMIN 3.1 g/dL (3.5-5.0)
[2018-06-19] MEDS: Saccharomyces Boulardi 250 mg Cap PO SCH ×2 (10:40→17:35)
[2018-06-19] MEDS: Enoxaparin 40 mg Syringe SC SCH (10:41)
--- NOTE | 2018-06-19 12:32 | CP.PCM.PN ---
Subjective - Date & Time of Evaluation Date of Evaluation: 06/19/18 Time of Evaluation: 06:00 - Subjective Subjective: await wound culture on doxy Objective - Vital Signs/Intake and Output Vital Signs (last 24 hours): Temp Pulse Resp BP Pulse Ox 99.6 F 92 H 20 101/60 99 06/19/18 10:22 06/19/18 10:22 06/19/18 10:22 06/19/18 10:22 06/19/18 10:22 Intake and Output: 06/19/18 06/19/18 06:59 18:59 Intake Total 640 Output Total 700 Balance -60 - Medications Medications: Current Medications Alprazolam (Xanax) 1 mg PO BID PRN PRN Reason: Anxiety Last Admin: 06/19/18 06:05 Dose: 1 mg Dicyclomine HCl (Bentyl) 10 mg PO Q6 [facility] Last Admin: 06/19/18 12:12 Dose: Not Given Docusate Sodium (Colace) 100 mg PO BID [facility] Last Admin: 06/19/18 10:40 Dose: Not Given Enoxaparin Sodium (Lovenox) 40 mg SC DAILY [facility] Last Admin: 06/19/18 10:41 Dose: Not Given Famotidine (Pepcid) 20 mg PO BID [facility] Last Admin: 06/19/18 12:15 Dose: Not Given Fentanyl (Fentanyl) 25 mcg IVP Q15MIN PRN PRN Reason: Pain, moderate (4-7) Last Admin: 06/17/18 16:48 Dose: 25 mcg Hydroxyzine HCl (Atarax) 50 mg PO Q8 PRN PRN Reason: Allergy symptoms Last Admin: 06/18/18 22:02 Dose: 50 mg Dextrose/Sodium Chloride (Dextrose 5%/0.45% Ns 1000 Ml) 1,000 mls @ 80 mls/hr IV .[id number] [facility] Last Admin: 06/18/18 18:14 Dose: 80 mls/hr Doxycycline Hyclate 100 mg/ (Sodium Chloride) 100 mls @ 100 mls/hr IVPB Q12H [facility]; Protocol Last Admin: 06/19/18 03:01 Dose: 100 mls/hr Ketorolac Tromethamine (Toradol) 30 mg IVP Q6 PRN PRN Reason: pain 8-10 Stop: 06/22/18 16:35 Last Admin: 06/18/18 13:33 Dose: 30 mg Loratadine (Claritin) 10 mg PO DAILY [facility] Last Admin: 06/19/18 10:40 Dose: Not Given Morphine Sulfate (Morphine) 5 mg IVP Q4 PRN PRN Reason: Pain, severe (8-10) Last Admin: 06/19/18 03:19 Dose: 5 mg Ondansetron HCl (Zofran Inj) 4 mg IVP Q6H PRN PRN Reason: GI distress Last Admin: 06/19/18 03:35 Dose: 4 mg Oxycodone/Acetaminophen (Percocet 5/325 Mg Tab) 2 tab PO Q4H PRN PRN Reason: pain Stop: 06/20/18 16:35 Last Admin: 06/18/18 08:28 Dose: 2 tab Pantoprazole Sodium (Protonix Inj) 40 mg IVP DAILY [facility] Last Admin: 06/19/18 12:16 Dose: 40 mg Saccharomyces Boulardii (Florastor) 250 mg PO BID [facility] Last Admin: 06/19/18 10:40 Dose: Not Given - Labs Labs: 06/19/18 08:20 06/19/18 08:20 PT 11.5 SECONDS (9.7-12.2) 06/17/18 13:52 INR 1.1 06/17/18 13:52 APTT 34 SECONDS (21-34) 06/17/18 13:52 - Constitutional Appears: Non-toxic, Chronically Ill - Head Exam Head Exam: NORMOCEPHALIC - Eye Exam Eye Exam: PERRL - ENT Exam ENT Exam: Mucous Membranes Dry - Neck Exam Neck Exam: absent: Lymphadenopathy - Respiratory Exam Respiratory Exam: Decreased Breath Sounds - Cardiovascular Exam Cardiovascular Exam: REGULAR RHYTHM - GI/Abdominal Exam GI & Abdominal Exam: Distended, Soft Assessment and Plan (1) Abscess Status: Acute (2) Abscess of groin, left Status: Acute (3) Abscess of groin, right Status: Acute - Assessment and Plan (Free Text) Assessment: cont rx as per Dr Siddiqui
[2018-06-19] MEDS ORDERED: Propofol 10 mg/ml Inj (20 ML) ONE (14:12)
--- NOTE | 2018-06-19 17:17 | RAD ---
Date of service: 06/19/2018 HISTORY: ro pneumonia COMPARISON: Chest radiograph dated 04/26/2018. TECHNIQUE: Chest PA and lateral FINDINGS: LUNGS: Medial left basilar opacity. PLEURA: No significant pleural effusion identified. No pneumothorax apparent. CARDIOVASCULAR: Normal. OSSEOUS STRUCTURES: No significant abnormalities. VISUALIZED UPPER ABDOMEN: Right upper quadrant surgical clips. OTHER FINDINGS: None. IMPRESSION: Medial left basilar opacity only seen on the PA view which was done with a shallow inspiration. As this is not seen on the lateral view, this may represent a focus of atelectasis as opposed to infiltrate. Clinical correlation is recommended.
[2018-06-19] MEDS: Dextrose 5%/0.45% NS 1,000 ML IV SCH (19:06)
[2018-06-19] MEDS: Oxycodone/Acetaminophen 5/325 mg Tab PO PRN (21:58)
[2018-06-20] MEDS: Morphine 4 MG/ML VIAL IVP PRN ×2 (03:15→17:23)
[2018-06-20] MEDS: Oxycodone/Acetaminophen 5/325 mg Tab PO PRN ×2 (06:11→21:01)
[2018-06-20 06:31] LABS: BASO % 0.4 % (0.0-2.0); EOS # 0.2 K/uL (0.0-0.7); EOS % 3.4 % (0.0-4.0); HEMOGLOBIN 8.7 g/dL (11.0-16.0); LYMPH # 2.3 K/uL (1.0-4.3); LYMPH % 34.5 % (20.0-40.0); MEAN CORPUSCULAR HEMOGLOBIN 30.7 pg (27.0-31.0); MEAN CORPUSCULAR HGB CONC 34.5 g/dL (33.0-37.0); MEAN PLATELET VOLUME 7.3 fL (7.2-11.7); MONO # 0.7 K/uL (0.0-0.8); NEUT # 3.5 K/uL (1.8-7.0); NEUT % 51.7 % (50.0-75.0); NRBC % 0.1 % (0.0-2.0); RBC 2.84 Mil/uL (3.80-5.20); RED CELL DISTRIBUTION WIDTH 15.2 % (11.5-14.5); WHITE BLOOD COUNT 6.7 K/uL (4.8-10.8)
[2018-06-20 06:55] LABS: ALB/GLOB RATIO 1.1 (1.0-2.1); ALBUMIN 3.1 g/dL (3.5-5.0); ALT/SGPT 18 U/L (9-52); AST/SGOT 16 U/L (14-36); BLOOD UREA NITROGEN 11 mg/dL (7-17); CALCIUM 8.3 mg/dl (8.6-10.4); GFR NON-AFRICAN AMERICAN > 60
--- NOTE | 2018-06-20 09:40 | CP.PCM.PN ---
Subjective - Date & Time of Evaluation Date of Evaluation: 06/20/18 Time of Evaluation: 07:00 - Subjective Subjective: PGY2- Progress Note for Dr. Diehl Patient seen and examined at bedside and in no acute distress. Patient is lethargic and says she has pain bilaterally in her groin. Patient admits to nausea, but no vomiting. Patient denies headache, fevers, chills, abdomen, diarrhea, constipation. Objective - Vital Signs/Intake and Output Vital Signs (last 24 hours): Temp Pulse Resp BP Pulse Ox 98.7 F 79 20 98/58 L 98 06/20/18 08:00 06/20/18 08:00 06/20/18 08:00 06/20/18 08:00 06/20/18 08:00 Intake and Output: 06/20/18 06/20/18 06:59 18:59 Intake Total 660 Output Total 700 Balance -40 - Medications Medications: Current Medications Alprazolam (Xanax) 1 mg PO BID PRN PRN Reason: Anxiety Last Admin: 06/20/18 00:13 Dose: 1 mg Dicyclomine HCl (Bentyl) 10 mg PO Q6 [facility] Last Admin: 06/20/18 06:13 Dose: 10 mg Docusate Sodium (Colace) 100 mg PO BID [facility] Last Admin: 06/19/18 17:35 Dose: 100 mg Enoxaparin Sodium (Lovenox) 40 mg SC DAILY [facility] Last Admin: 06/19/18 10:41 Dose: Not Given Famotidine (Pepcid) 20 mg PO BID [facility] Last Admin: 06/19/18 17:36 Dose: 20 mg Fentanyl (Fentanyl) 25 mcg IVP Q15MIN PRN PRN Reason: Pain, moderate (4-7) Last Admin: 06/17/18 16:48 Dose: 25 mcg Hydroxyzine HCl (Atarax) 50 mg PO Q8 PRN PRN Reason: Allergy symptoms Last Admin: 06/20/18 03:50 Dose: 50 mg Dextrose/Sodium Chloride (Dextrose 5%/0.45% Ns 1000 Ml) 1,000 mls @ 80 mls/hr IV .[id number] [facility] Last Admin: 06/19/18 19:06 Dose: 80 mls/hr Doxycycline Hyclate 100 mg/ (Sodium Chloride) 100 mls @ 100 mls/hr IVPB Q12H [facility]; Protocol Last Admin: 06/20/18 03:05 Dose: 100 mls/hr Loratadine (Claritin) 10 mg PO DAILY [facility] Last Admin: 06/19/18 10:40 Dose: Not Given Morphine Sulfate (Morphine) 5 mg IVP Q4 PRN PRN Reason: Pain, severe (8-10) Last Admin: 06/20/18 03:15 Dose: 5 mg Ondansetron HCl (Zofran Inj) 4 mg IVP Q6H PRN PRN Reason: GI distress Last Admin: 06/19/18 03:35 Dose: 4 mg Oxycodone/Acetaminophen (Percocet 5/325 Mg Tab) 2 tab PO Q4H PRN PRN Reason: pain Stop: 06/20/18 16:35 Last Admin: 06/20/18 06:11 Dose: 2 tab Pantoprazole Sodium (Protonix Inj) 40 mg IVP DAILY [facility] Last Admin: 06/19/18 12:16 Dose: 40 mg Saccharomyces Boulardii (Florastor) 250 mg PO BID [facility] Last Admin: 06/19/18 17:35 Dose: 250 mg - Labs Labs: 06/20/18 06:23 06/20/18 06:23 PT 11.5 SECONDS (9.7-12.2) 06/17/18 13:52 INR 1.1 06/17/18 13:52 APTT 34 SECONDS (21-34) 06/17/18 13:52 - Additional Findings Additional findings: - Constitutional Appears: Non-toxic, No Acute Distress - Head Exam Head Exam: ATRAUMATIC, NORMAL INSPECTION, NORMOCEPHALIC - Eye Exam Eye Exam: EOMI, Normal appearance - Respiratory Exam Respiratory Exam: Clear to Ausculation Bilateral, NORMAL BREATHING PATTERN. absent: Rhonchi, Wheezes - Cardiovascular Exam Cardiovascular Exam: REGULAR RHYTHM, RRR, +S1, +S2 - GI/Abdominal Exam GI & Abdominal Exam: Soft, Normal Bowel Sounds. absent: Tenderness - Exam Additional comments: b/l groin abscesses with c/d/i dressings - Extremities Exam Extremities Exam: Full ROM, Normal Inspection. 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 OR on 06/17/18 and repeat I&D 06/18/18, OR on 06/19/18 for packing change and irrigation of wounds - per Dr. Siddiqui: - Colace 100mg po bid - Percocet 2 tab po q4 prn - Toradol 30mg IVP q6hrs prn - morphine 5mg IVP prn severe pain - morphine 2mg IVP q10min prn severe pain - Doxycycline 100mg q12hrs - antibiotics per ID: Dr. Gastelum: Linezolid 600mg IVPB q12 - groin wound on previous admissions have grown Acinetobacter Baumannii, E. Coli, pseudomonas and Proteus Mirabilis Cx 05/29/18: pseudomonas and E. coli Follow up Cx collected 06/17/18 -Afebrile -Normal WBC Chronic Diarrhea - Continue Home Bentyl 10mg po q6h Pruritus/Seasonal Allergies - Continue Home Atarax 50mg po q8 - Continue Home Claritin 10 mg po daily Anxiety - Continue Home Xanax 1mg po bid Prophylaxis - DVT: per Surgery: Lovenox 40mg SC daily - hold prior to surgery - Protonix 40mg IV daily - Florastor 250mg po bid - Zofran PRN nausea - PT eval Case discussed with Dr. Diehl All medical management as per Dr. Diehl
[2018-06-20] MEDS: Saccharomyces Boulardi 250 mg Cap PO SCH ×2 (09:55→21:00)
[2018-06-20] MEDS: Enoxaparin 40 mg Syringe SC SCH (10:00)
[2018-06-20] MEDS ORDERED: Midazolam 2 MG/2 ML VIAL ONE (11:36)
[2018-06-20] MEDS ORDERED: Propofol 10 mg/ml Inj (20 ML) ONE (11:36)
[2018-06-20] MEDS: Dextrose 5%/0.45% NS 1,000 ML IV SCH ×2 (13:48→13:49)
--- NOTE | 2018-06-20 18:59 | CP.PCM.PN ---
Subjective - Date & Time of Evaluation Date of Evaluation: 06/20/18 Time of Evaluation: 08:00 - Subjective Subjective: slow progress cultures reviewed Objective - Vital Signs/Intake and Output Vital Signs (last 24 hours): Temp Pulse Resp BP Pulse Ox 97.7 F 101 H 20 111/68 100 06/20/18 16:12 06/20/18 16:12 06/20/18 16:12 06/20/18 16:12 06/20/18 16:12 Intake and Output: 06/20/18 06/20/18 06:59 18:59 Intake Total 660 600 Output Total 700 350 Balance -40 250 - Medications Medications: Current Medications Alprazolam (Xanax) 1 mg PO BID PRN PRN Reason: Anxiety Last Admin: 06/20/18 17:23 Dose: 1 mg Dicyclomine HCl (Bentyl) 10 mg PO Q6 [facility] Last Admin: 06/20/18 17:22 Dose: 10 mg Docusate Sodium (Colace) 100 mg PO BID [facility] Last Admin: 06/20/18 17:22 Dose: 100 mg Enoxaparin Sodium (Lovenox) 40 mg SC DAILY [facility] Last Admin: 06/20/18 10:00 Dose: Not Given Famotidine (Pepcid) 20 mg PO BID [facility] Last Admin: 06/20/18 17:21 Dose: 20 mg Fentanyl (Fentanyl) 25 mcg IVP Q15MIN PRN PRN Reason: Pain, moderate (4-7) Last Admin: 06/17/18 16:48 Dose: 25 mcg Hydroxyzine HCl (Atarax) 50 mg PO Q8 PRN PRN Reason: Allergy symptoms Last Admin: 06/20/18 17:23 Dose: 50 mg Doxycycline Hyclate 100 mg/ (Sodium Chloride) 100 mls @ 100 mls/hr IVPB Q12H [facility]; Protocol Last Admin: 06/20/18 16:25 Dose: Not Given Acetaminophen (Ofirmev) 100 mls @ 400 mls/hr IV ONCE PRN PRN Reason: Pain, moderate (4-7) Stop: 06/21/18 12:16 Last Admin: 06/20/18 12:45 Dose: 100 mls Loratadine (Claritin) 10 mg PO DAILY [facility] Last Admin: 06/20/18 09:55 Dose: 10 mg Morphine Sulfate (Morphine) 5 mg IVP Q4 PRN PRN Reason: Pain, severe (8-10) Last Admin: 06/20/18 17:23 Dose: 5 mg Ondansetron HCl (Zofran Inj) 4 mg IVP Q6H PRN PRN Reason: GI distress Last Admin: 06/19/18 03:35 Dose: 4 mg Pantoprazole Sodium (Protonix Ec Tab) 40 mg PO DAILY [facility] Saccharomyces Boulardii (Florastor) 250 mg PO BID [facility] Last Admin: 06/20/18 09:55 Dose: 250 mg - Labs Labs: 06/20/18 06:23 06/20/18 06:23 PT 11.5 SECONDS (9.7-12.2) 06/17/18 13:52 INR 1.1 06/17/18 13:52 APTT 34 SECONDS (21-34) 06/17/18 13:52 - Constitutional Appears: Non-toxic - Head Exam Head Exam: NORMOCEPHALIC - Eye Exam Eye Exam: PERRL - ENT Exam ENT Exam: Mucous Membranes Dry - Neck Exam Neck Exam: absent: Lymphadenopathy - Respiratory Exam Respiratory Exam: Decreased Breath Sounds - Cardiovascular Exam Cardiovascular Exam: REGULAR RHYTHM - GI/Abdominal Exam GI & Abdominal Exam: Distended Assessment and Plan (1) Abscess Status: Acute (2) Abscess of groin, left Status: Acute (3) Abscess of groin, right Status: Acute
[2018-06-20] MEDS ORDERED: Magnesium Hydroxide Susp 30 ml UD PO ONE ×2 (19:51→21:15)
[2018-06-21] MEDS: Oxycodone/Acetaminophen 5/325 mg Tab PO PRN ×2 (01:19→09:35)
--- NOTE | 2018-06-21 07:13 | OP ---
PROCEDURE DATE: 06/19/2018 PREOPERATIVE DIAGNOSIS: Large open pelvic wounds bilaterally with infection and abscess. POSTOPERATIVE DIAGNOSIS: Large open pelvic wounds bilaterally with infection and abscess. PROCEDURE PERFORMED: This is a staged. Return to the operating room. We changed the packing under anesthesia. Pulse irrigation, re-drainage of abscess, debridement, and partial advancement flap closure. SURGEON: Nitish Siddiqui MD ANESTHESIA: General. BLOOD LOSS: 40 mL. POSTOPERATIVE CONDITION: Stable. INDICATIONS FOR SURGERY: This is a 37-year-old female with a history of severe with severe bilateral pelvic wounds in the crease of her groin bilaterally, on the right measuring 11 x 8 cm, on the left measuring 5 x 8 cm. These wounds had been taken back daily for dressing changes and change of packing. Finally, I started to granulate. She is now taken back for further treatment and preparation for a wound VAC and long-term care. DESCRIPTION OF PROCEDURE: The patient was taken to the operating room. General anesthesia was administered. She was placed in a modified frog position. Both groins were prepped and draped. The wounds were both aggressively irrigated. Any remaining collections were drained and cultured. Bleeding was controlled using a Bovie, and larger blood vessels were repaired. Partial advancement flap closure was performed at the periphery including counterincision totaling 22 sq cm. The remainder of the wounds were pulse irrigated and packed open with wet saline gauze. The patient tolerated the procedure well and returned to recovery room in stable condition. Nitish Siddiqui MD
[2018-06-21 08:23] LABS: BASO % 0.5 % (0.0-2.0); EOS # 0.3 K/uL (0.0-0.7); EOS % 3.9 % (0.0-4.0); HEMOGLOBIN 8.6 g/dL (11.0-16.0); LYMPH # 2.7 K/uL (1.0-4.3); LYMPH % 38.1 % (20.0-40.0); MEAN CELL VOLUME 89.2 fL (81.0-99.0); MEAN CORPUSCULAR HGB CONC 34.7 g/dL (33.0-37.0); MEAN PLATELET VOLUME 7.4 fL (7.2-11.7); MONO # 0.7 K/uL (0.0-0.8); MONO % 9.2 % (0.0-10.0); NEUT # 3.5 K/uL (1.8-7.0); NEUT % 48.3 % (50.0-75.0); RBC 2.78 Mil/uL (3.80-5.20); RED CELL DISTRIBUTION WIDTH 15.1 % (11.5-14.5); WHITE BLOOD COUNT 7.2 K/uL (4.8-10.8)
[2018-06-21 08:39] LABS: ALT/SGPT 19 U/L (9-52); AST/SGOT 11 U/L (14-36); BLOOD UREA NITROGEN 10 mg/dL (7-17); CALCIUM 8.4 mg/dl (8.6-10.4); GFR NON-AFRICAN AMERICAN > 60
[2018-06-21] MEDS: Pantoprazole 40 mg EC Tab PO SCH (09:25)
[2018-06-21] MEDS: Saccharomyces Boulardi 250 mg Cap PO SCH ×2 (09:25→17:37)
[2018-06-21] MEDS: Enoxaparin 40 mg Syringe SC SCH (09:25)
[2018-06-21] MEDS ORDERED: Albuterol-Ipratrop 3 mg / 0.5 (3 ml) UD INH STA (10:45)
[2018-06-21] MEDS ORDERED: Magnesium Citrate Oral SOL (300 ml) PO ONE (11:59)
--- NOTE | 2018-06-21 14:28 | CP.PCM.PN ---
Subjective - Date & Time of Evaluation Date of Evaluation: 06/21/18 Time of Evaluation: 14:25 - Subjective Subjective: MEDICINE NOTE FOR DR. CHAUDHARY'S SERVICE Pt seen and examined at bedside. Her pain is controlled with extensive medications currently. She is trying to not use opioids often to avoid addiction. He most recent visit to the OR was on 06/19 with irrigation of the wound site. She will return to the OR 06/23 for revision. She is currently being managed by Dr. Gastelum for her abx. Wound cx show klebsiella/proteus. Repeat cx pending. No other acute changes. Objective - Vital Signs/Intake and Output Vital Signs (last 24 hours): Temp Pulse Resp BP Pulse Ox 97.6 F 83 20 105/65 95 06/21/18 08:18 06/21/18 08:18 06/21/18 08:18 06/21/18 08:18 06/21/18 08:18 Intake and Output: 06/21/18 06/21/18 06:59 18:59 Intake Total 1150 Output Total 1900 Balance -750 - Medications Medications: Current Medications Alprazolam (Xanax) 1 mg PO BID PRN PRN Reason: Anxiety Last Admin: 06/21/18 11:36 Dose: 1 mg Dicyclomine HCl (Bentyl) 10 mg PO Q6 [facility] Last Admin: 06/21/18 12:54 Dose: 10 mg Docusate Sodium (Colace) 100 mg PO BID [facility] Last Admin: 06/21/18 09:25 Dose: 100 mg Enoxaparin Sodium (Lovenox) 40 mg SC DAILY [facility] Last Admin: 06/21/18 09:25 Dose: 40 mg Famotidine (Pepcid) 20 mg PO BID [facility] Last Admin: 06/21/18 09:25 Dose: 20 mg Fentanyl (Fentanyl) 25 mcg IVP Q15MIN PRN PRN Reason: Pain, moderate (4-7) Last Admin: 06/17/18 16:48 Dose: 25 mcg Hydroxyzine HCl (Atarax) 50 mg PO Q8 PRN PRN Reason: Allergy symptoms Last Admin: 06/21/18 09:28 Dose: 50 mg Doxycycline Hyclate 100 mg/ (Sodium Chloride) 100 mls @ 100 mls/hr IVPB Q12H [facility]; Protocol Last Admin: 06/21/18 14:07 Dose: Not Given Loratadine (Claritin) 10 mg PO DAILY [facility] Last Admin: 06/21/18 09:27 Dose: 10 mg Morphine Sulfate (Morphine) 5 mg IVP Q4 PRN PRN Reason: Pain, severe (8-10) Last Admin: 06/20/18 17:23 Dose: 5 mg Ondansetron HCl (Zofran Inj) 4 mg IVP Q6H PRN PRN Reason: GI distress Last Admin: 06/19/18 03:35 Dose: 4 mg Oxycodone/Acetaminophen (Percocet 5/325 Mg Tab) 2 tab PO Q4H PRN PRN Reason: Pain, moderate (4-7) Stop: 06/23/18 19:51 Last Admin: 06/21/18 09:35 Dose: 2 tab Pantoprazole Sodium (Protonix Ec Tab) 40 mg PO DAILY [facility] Last Admin: 06/21/18 09:25 Dose: 40 mg Saccharomyces Boulardii (Florastor) 250 mg PO BID [facility] Last Admin: 06/21/18 09:25 Dose: 250 mg - Labs Labs: 06/21/18 08:01 06/21/18 08:01 PT 11.5 SECONDS (9.7-12.2) 06/17/18 13:52 INR 1.1 06/17/18 13:52 APTT 34 SECONDS (21-34) 06/17/18 13:52 - Constitutional Appears: No Acute Distress - Head Exam Head Exam: ATRAUMATIC, NORMOCEPHALIC - Eye Exam Eye Exam: Normal appearance - ENT Exam ENT Exam: Mucous Membranes Moist - Respiratory Exam Respiratory Exam: Clear to Ausculation Bilateral, NORMAL BREATHING PATTERN - Cardiovascular Exam Cardiovascular Exam: REGULAR RHYTHM, +S1, +S2 - GI/Abdominal Exam GI & Abdominal Exam: Soft. 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 OR on 06/17/18 and repeat I&D 06/18/18, OR on 06/19/18 for packing change and irrigation of wounds. Plan for OR 06/23. - per Dr. Siddiqui: - Colace 100mg po bid - Percocet 2 tab po q4 prn - Toradol 30mg IVP q6hrs prn - morphine 5mg IVP prn severe pain - Doxycycline 100mg q12hrs - antibiotics per ID: Dr. Gastelum - groin wound on previous admissions have grown Acinetobacter Baumannii, E. Coli, pseudomonas and Proteus Mirabilis Cx 05/29/18: pseudomonas and E. coli Cx 06/19/18: Proteus/Klebsiella -Afebrile -Normal WBC Chronic Diarrhea - Continue Home Bentyl 10mg po q6h Pruritus/Seasonal Allergies - Continue Home Atarax 50mg po q8 - Continue Home Claritin 10 mg po daily Anxiety - Continue Home Xanax 1mg po bid Prophylaxis - DVT: per Surgery: Lovenox 40mg SC daily - hold prior to surgery - Protonix 40mg IV daily - Florastor 250mg po bid - Zofran PRN nausea - PT eval Case discussed with Dr. Chaudhary All medical management as per Dr. Chaudhary
[2018-06-21] MEDS: Morphine 4 MG/ML VIAL IVP PRN ×2 (16:46→22:29)
[2018-06-22] MEDS: Oxycodone/Acetaminophen 5/325 mg Tab PO PRN (00:54)
[2018-06-22] MEDS: Morphine 4 MG/ML VIAL IVP PRN ×4 (03:57→21:10)
[2018-06-22 07:08] LABS: BASO % 0.4 % (0.0-2.0); EOS # 0.2 K/uL (0.0-0.7); HEMOGLOBIN 8.9 g/dL (11.0-16.0); LYMPH # 2.4 K/uL (1.0-4.3); LYMPH % 36.4 % (20.0-40.0); MEAN CELL VOLUME 88.7 fL (81.0-99.0); MEAN CORPUSCULAR HEMOGLOBIN 30.2 pg (27.0-31.0); MEAN CORPUSCULAR HGB CONC 34.1 g/dL (33.0-37.0); MEAN PLATELET VOLUME 7.5 fL (7.2-11.7); MONO # 0.6 K/uL (0.0-0.8); NEUT # 3.3 K/uL (1.8-7.0); NEUT % 51.2 % (50.0-75.0); RBC 2.95 Mil/uL (3.80-5.20); WHITE BLOOD COUNT 6.5 K/uL (4.8-10.8)
[2018-06-22 07:27] LABS: ALT/SGPT 23 U/L (9-52); AST/SGOT 11 U/L (14-36); BLOOD UREA NITROGEN 7 mg/dL (7-17); CALCIUM 8.5 mg/dl (8.6-10.4); GFR NON-AFRICAN AMERICAN > 60
[2018-06-22] MEDS: Saccharomyces Boulardi 250 mg Cap PO SCH ×2 (09:36→17:44)
[2018-06-22] MEDS: Pantoprazole 40 mg EC Tab PO SCH (09:36)
[2018-06-22] MEDS: Enoxaparin 40 mg Syringe SC SCH (09:40)
[2018-06-23] MEDS: Morphine 4 MG/ML VIAL IVP PRN ×2 (03:12→16:01)
[2018-06-23 08:51] LABS: BASO % 0.7 % (0.0-2.0); EOS # 0.2 K/uL (0.0-0.7); EOS % 4.1 % (0.0-4.0); HEMOGLOBIN 8.6 g/dL (11.0-16.0); LYMPH # 2.3 K/uL (1.0-4.3); MEAN CORPUSCULAR HEMOGLOBIN 30.9 pg (27.0-31.0); MEAN CORPUSCULAR HGB CONC 34.7 g/dL (33.0-37.0); MEAN PLATELET VOLUME 7.6 fL (7.2-11.7); MONO # 0.6 K/uL (0.0-0.8); MONO % 11.2 % (0.0-10.0); NEUT # 2.5 K/uL (1.8-7.0); RBC 2.78 Mil/uL (3.80-5.20); RED CELL DISTRIBUTION WIDTH 15.1 % (11.5-14.5); WHITE BLOOD COUNT 5.7 K/uL (4.8-10.8)
[2018-06-23 09:16] LABS: ALT/SGPT 20 U/L (9-52); AST/SGOT 11 U/L (14-36); BLOOD UREA NITROGEN 9 mg/dL (7-17); CALCIUM 8.8 mg/dl (8.6-10.4); GFR NON-AFRICAN AMERICAN > 60
[2018-06-23] MEDS: Pantoprazole 40 mg EC Tab PO SCH (09:36)
[2018-06-23] MEDS: Saccharomyces Boulardi 250 mg Cap PO SCH ×2 (09:36→17:14)
[2018-06-23] MEDS: Enoxaparin 40 mg Syringe SC SCH (09:37)
[2018-06-23] MEDS ORDERED: Midazolam 2 MG/2 ML VIAL ONE (10:01)
[2018-06-23] MEDS ORDERED: Propofol 10 mg/ml Inj (20 ML) ONE (10:01)
--- NOTE | 2018-06-23 15:31 | CP.PCM.PN ---
Subjective - Date & Time of Evaluation Date of Evaluation: 06/23/18 Time of Evaluation: 08:00 - Subjective Subjective: sfeb s/p debridement IV rx renewed Objective - Vital Signs/Intake and Output Vital Signs (last 24 hours): Temp Pulse Resp BP Pulse Ox 97.9 F 72 15 115/64 100 06/23/18 11:25 06/23/18 12:15 06/23/18 12:15 06/23/18 12:15 06/23/18 12:15 Intake and Output: 06/23/18 06/23/18 06:59 18:59 Intake Total 720 730 Output Total 2500 850 Balance -1780 -120 - Medications Medications: Current Medications Alprazolam (Xanax) 1 mg PO BID PRN PRN Reason: Anxiety Last Admin: 06/23/18 13:27 Dose: 1 mg Dicyclomine HCl (Bentyl) 10 mg PO Q6 [facility] Last Admin: 06/23/18 12:00 Dose: Not Given Docusate Sodium (Colace) 100 mg PO BID [facility] Last Admin: 06/23/18 09:42 Dose: 100 mg Enoxaparin Sodium (Lovenox) 40 mg SC DAILY [facility] Last Admin: 06/23/18 09:37 Dose: Not Given Famotidine (Pepcid) 20 mg PO BID [facility] Last Admin: 06/23/18 09:36 Dose: 20 mg Hydroxyzine HCl (Atarax) 50 mg PO Q8 PRN PRN Reason: Allergy symptoms Last Admin: 06/22/18 21:33 Dose: 50 mg Doxycycline Hyclate 100 mg/ (Sodium Chloride) 100 mls @ 100 mls/hr IVPB Q12H [facility]; Protocol Last Admin: 06/23/18 14:39 Dose: 100 mls/hr Loratadine (Claritin) 10 mg PO DAILY [facility] Last Admin: 06/23/18 09:40 Dose: Not Given Morphine Sulfate (Morphine) 5 mg IVP Q4 PRN PRN Reason: Pain, severe (8-10) Last Admin: 06/23/18 03:12 Dose: 5 mg Ondansetron HCl (Zofran Inj) 4 mg IVP Q6H PRN PRN Reason: GI distress Last Admin: 06/19/18 03:35 Dose: 4 mg Oxycodone/Acetaminophen (Percocet 5/325 Mg Tab) 2 tab PO Q4H PRN PRN Reason: Pain, moderate (4-7) Stop: 06/23/18 19:51 Last Admin: 06/22/18 00:54 Dose: 2 tab Pantoprazole Sodium (Protonix Ec Tab) 40 mg PO DAILY [facility] Last Admin: 06/23/18 09:36 Dose: 40 mg Saccharomyces Boulardii (Florastor) 250 mg PO BID [facility] Last Admin: 06/23/18 09:36 Dose: 250 mg - Labs Labs: 06/23/18 08:38 06/23/18 08:38 PT 11.5 SECONDS (9.7-12.2) 06/17/18 13:52 INR 1.1 06/17/18 13:52 APTT 34 SECONDS (21-34) 06/17/18 13:52 Assessment and Plan (1) Abscess Status: Acute (2) Abscess of groin, left Status: Acute (3) Abscess of groin, right Status: Acute
[2018-06-23] MEDS ORDERED: Aztreonam 1 GM in Sodium Chloride 0.9% 100 ML IVPB SCH (16:30)
[2018-06-23] MEDS: Aztreonam 1 GM in Sodium Chloride 0.9% 100 ML IVPB SCH (17:30)
[2018-06-23] MEDS: Oxycodone/Acetaminophen 5/325 mg Tab PO PRN (19:55)
--- NOTE | 2018-06-23 23:17 | OP ---
PROCEDURE DATE: 06/23/2018 PREOPERATIVE DIAGNOSIS: Bilateral large groin wounds with abscess. POSTOPERATIVE DIAGNOSIS: Bilateral large groin wounds with abscess. PROCEDURE PERFORMED: Debridement and re-drainage of bilateral groin wounds and abscess with change of packing and partial tissue flap closure. SURGEON: Nitish Siddiqui MD ANESTHESIA: General. BLOOD LOSS: 40 mL. POSTOPERATIVE CONDITION: Stable. INDICATIONS FOR SURGERY: This is a staged procedure where 37-year-old female, status post wide and deep excision bilaterally of large infected groin masses, presents for possible wound VAC placement and redrainage and debridement of both wounds. DESCRIPTION OF PROCEDURE: The patient was taken to the operating room. General anesthesia was administered. The patient was placed in the prone position with the groin wounds opened, and the packings were removed. The areas were prepped and draped. Both wounds were aggressively debrided, any remaining collections were drained and cultures. Bleeding was controlled using the Bovie and larger blood vessels were repaired. Tissue flap closures were performed bilaterally full-thickness with counter incisions at the periphery, totaling 20 sq cm. The central portion of wound was first packed. Wound VACs were attempted to be placed bilaterally. However, due to the creases in the area of the vagina and buttock, proper seal could not be obtained for the wound VAC so regular saline soaked packings were placed. The patient tolerated the procedure well. Returned to recovery room in stable condition. Nitish Siddiqui MD
[2018-06-24] MEDS: Aztreonam 1 GM in Sodium Chloride 0.9% 100 ML IVPB SCH ×3 (01:55→17:45)
[2018-06-24] MEDS: Morphine 4 MG/ML VIAL IVP PRN ×3 (01:56→10:32)
[2018-06-24] MEDS: Pantoprazole 40 mg EC Tab PO SCH (10:41)
[2018-06-24] MEDS: Enoxaparin 40 mg Syringe SC SCH (10:42)
[2018-06-24] MEDS: Saccharomyces Boulardi 250 mg Cap PO SCH ×2 (10:42→17:45)
--- NOTE | 2018-06-24 12:25 | CP.PCM.PN ---
Subjective - Date & Time of Evaluation Date of Evaluation: 06/24/18 Time of Evaluation: 07:00 - Subjective Subjective: PGY2- Progress Note for Dr. Diehl Patient seen and examined at bedside. Patient is having groin pain and lower abdominal cramping 2/2 starting her menstrual period. Patient also complains of some left sided buttocks pain. Patient says she can feel a small lump. Patient denies any chest pain, shortness of breath, nausea, vomiting, constipation, or diarrhea. Objective - Vital Signs/Intake and Output Vital Signs (last 24 hours): Temp Pulse Resp BP Pulse Ox 98.2 F 86 20 111/76 98 06/24/18 07:52 06/24/18 07:52 06/24/18 07:52 06/24/18 07:52 06/24/18 07:52 Intake and Output: 06/24/18 06/24/18 06:59 18:59 Intake Total 920 Output Total 1900 Balance -980 - Medications Medications: Current Medications Alprazolam (Xanax) 1 mg PO BID PRN PRN Reason: Anxiety Last Admin: 06/24/18 04:12 Dose: 1 mg Dicyclomine HCl (Bentyl) 10 mg PO Q6 [facility] Last Admin: 06/24/18 05:11 Dose: 10 mg Docusate Sodium (Colace) 100 mg PO BID [facility] Last Admin: 06/24/18 10:41 Dose: 100 mg Enoxaparin Sodium (Lovenox) 40 mg SC DAILY [facility] Last Admin: 06/24/18 10:42 Dose: 40 mg Famotidine (Pepcid) 20 mg PO BID [facility] Last Admin: 06/24/18 10:41 Dose: 20 mg Hydroxyzine HCl (Atarax) 50 mg PO Q8 PRN PRN Reason: Allergy symptoms Last Admin: 06/24/18 10:49 Dose: 50 mg Doxycycline Hyclate 100 mg/ (Sodium Chloride) 100 mls @ 100 mls/hr IVPB Q12H [facility]; Protocol Last Admin: 06/24/18 03:30 Dose: 100 mls/hr Aztreonam 1 gm/ Sodium (Chloride) 100 mls @ 200 mls/hr IVPB Q8H [facility]; Protocol Last Admin: 06/24/18 10:48 Dose: 200 mls/hr Loratadine (Claritin) 10 mg PO DAILY [facility] Last Admin: 06/24/18 10:42 Dose: 10 mg Morphine Sulfate (Morphine) 5 mg IVP Q4 PRN PRN Reason: Pain, severe (8-10) Last Admin: 06/24/18 10:32 Dose: 5 mg Ondansetron HCl (Zofran Inj) 4 mg IVP Q6H PRN PRN Reason: GI distress Last Admin: 06/23/18 19:55 Dose: 4 mg Pantoprazole Sodium (Protonix Ec Tab) 40 mg PO DAILY [facility] Last Admin: 06/24/18 10:41 Dose: 40 mg Saccharomyces Boulardii (Florastor) 250 mg PO BID [facility] Last Admin: 06/24/18 10:42 Dose: 250 mg - Labs Labs: 06/23/18 08:38 06/23/18 08:38 PT 11.5 SECONDS (9.7-12.2) 06/17/18 13:52 INR 1.1 06/17/18 13:52 APTT 34 SECONDS (21-34) 06/17/18 13:52 - Constitutional Appears: Non-toxic, No Acute Distress - Head Exam Head Exam: ATRAUMATIC, NORMAL INSPECTION, NORMOCEPHALIC - Eye Exam Eye Exam: EOMI, Normal appearance - ENT Exam ENT Exam: Mucous Membranes Moist - Respiratory Exam Respiratory Exam: Clear to Ausculation Bilateral, NORMAL BREATHING PATTERN - Cardiovascular Exam Cardiovascular Exam: REGULAR RHYTHM, RRR, +S1, +S2 - GI/Abdominal Exam GI & Abdominal Exam: Soft, Normal Bowel Sounds. absent: Tenderness - Extremities Exam Extremities Exam: Normal Inspection. absent: Tenderness Additional comments: thigh and groin wrapped in c/d/i dressing - Back Exam Back Exam: NORMAL INSPECTION - Neurological Exam Neurological Exam: Alert, Awake, Oriented x3 - Psychiatric Exam Psychiatric exam: Normal Affect, Normal Mood - Skin Skin Exam: Warm Additional comments: dressings c/d/i left sided buttock pea sized papule, no discoloration or drainage Assessment and Plan - Assessment and Plan (Free Text) Assessment: Bilateral Groin Abscesses - Chronic infection to this location with multiple I&D's in the past. OR on 06/17/18 and repeat I&D 06/18/18, OR on 06/19/18 for packing change and irrigation of wounds. Or on 06/23 - per Dr. Siddiqui: - Colace 100mg po bid - Percocet 2 tab po q4 prn - Toradol 30mg IVP q6hrs prn - morphine 5mg IVP prn severe pain - Doxycycline 100mg q12hrs - antibiotics per ID: Dr. Gastelum - groin wound on previous admissions have grown Acinetobacter Baumannii, E. Coli, pseudomonas and Proteus Mirabilis Cx 05/29/18: pseudomonas and E. coli Cx 06/19/18: Proteus/Klebsiella -Afebrile -Normal WBC Chronic Diarrhea - Continue Home Bentyl 10mg po q6h Pruritus/Seasonal Allergies - Continue Home Atarax 50mg po q8 - Continue Home Claritin 10 mg po daily Anxiety - Continue Home Xanax 1mg po bid Prophylaxis - DVT: per Surgery: Lovenox 40mg SC daily - hold prior to surgery - Protonix 40mg IV daily - Florastor 250mg po bid - Zofran PRN nausea - PT eval Case discussed with Dr. Diehl All medical management as per Dr. Diehl
[2018-06-24] MEDS: Oxycodone/Acetaminophen 5/325 mg Tab PO PRN (16:02)
[2018-06-24] MEDS: Morphine 4 MG/ML VIAL IVP SCH ×2 (17:48→23:52)
[2018-06-25] MEDS: Aztreonam 1 GM in Sodium Chloride 0.9% 100 ML IVPB SCH ×3 (02:48→17:35)
[2018-06-25] MEDS: Morphine 4 MG/ML VIAL IVP SCH ×4 (05:37→23:51)
[2018-06-25] MEDS: Dakin's Topical 0.25%-Half Strength (480 ml) TOP SCH (10:00)
--- NOTE | 2018-06-25 10:27 | RAD ---
HISTORY: PICC Insertion COMPARISON: Chest x-ray performed 06/19/18 TECHNIQUE: Chest, one view. FINDINGS: Left-sided PICC extends to the cavoatrial junction. LUNGS: Examination limited by habitus and hypoinflation. Mild left basilar atelectasis/infiltrate. PLEURA: No significant pleural effusion identified. No definite pneumothorax . CARDIOVASCULAR: The cardiomediastinal silhouette appears within normal limits of size. OSSEOUS STRUCTURES: No acute osseous abnormality identified. VISUALIZED UPPER ABDOMEN: Unremarkable. OTHER FINDINGS: None. IMPRESSION: Hypoinflation. Left-sided PICC. Mild left basilar atelectasis/infiltrate.
[2018-06-25] MEDS: Enoxaparin 40 mg Syringe SC SCH (11:47)
[2018-06-25] MEDS: Saccharomyces Boulardi 250 mg Cap PO SCH ×2 (11:52→17:35)
[2018-06-25] MEDS: Pantoprazole 40 mg EC Tab PO SCH (11:53)
[2018-06-25 12:23] LABS: BASO % 0.5 % (0.0-2.0); EOS # 0.3 K/uL (0.0-0.7); EOS % 4.4 % (0.0-4.0); HEMOGLOBIN 8.5 g/dL (11.0-16.0); LYMPH # 1.9 K/uL (1.0-4.3); LYMPH % 33.5 % (20.0-40.0); MEAN CELL VOLUME 88.2 fL (81.0-99.0); MEAN CORPUSCULAR HEMOGLOBIN 30.7 pg (27.0-31.0); MEAN CORPUSCULAR HGB CONC 34.8 g/dL (33.0-37.0); MEAN PLATELET VOLUME 7.6 fL (7.2-11.7); MONO # 0.6 K/uL (0.0-0.8); MONO % 10.2 % (0.0-10.0); NEUT # 2.9 K/uL (1.8-7.0); NEUT % 51.4 % (50.0-75.0); NRBC % 0.1 % (0.0-2.0); RBC 2.77 Mil/uL (3.80-5.20); RED CELL DISTRIBUTION WIDTH 15.2 % (11.5-14.5); WHITE BLOOD COUNT 5.7 K/uL (4.8-10.8)
[2018-06-25 12:38] LABS: ALBUMIN 3.2 g/dL (3.5-5.0); ALT/SGPT 27 U/L (9-52); AST/SGOT 15 U/L (14-36); BLOOD UREA NITROGEN 8 mg/dL (7-17); CALCIUM 8.6 mg/dl (8.6-10.4); GFR NON-AFRICAN AMERICAN > 60
--- NOTE | 2018-06-25 13:38 | CP.PCM.PN ---
Subjective - Date & Time of Evaluation Date of Evaluation: 06/25/18 Time of Evaluation: 08:00 - Subjective Subjective: comfortable nad c/o pain weak afeb IV Azactam reordered for OR debridement Objective - Vital Signs/Intake and Output Vital Signs (last 24 hours): Temp Pulse Resp BP Pulse Ox 98.9 F 71 20 98/64 L 97 06/25/18 08:20 06/25/18 08:20 06/25/18 08:20 06/25/18 08:20 06/25/18 08:20 Intake and Output: 06/25/18 06/25/18 06:59 18:59 Intake Total 800 Balance 800 - Medications Medications: Current Medications Alprazolam (Xanax) 1 mg PO BID PRN PRN Reason: Anxiety Last Admin: 06/24/18 22:31 Dose: 1 mg Dicyclomine HCl (Bentyl) 10 mg PO Q6 [facility] Last Admin: 06/25/18 11:52 Dose: Not Given Docusate Sodium (Colace) 100 mg PO BID [facility] Last Admin: 06/25/18 11:52 Dose: Not Given Enoxaparin Sodium (Lovenox) 40 mg SC DAILY [facility] Last Admin: 06/25/18 11:47 Dose: Not Given Famotidine (Pepcid) 20 mg PO BID [facility] Last Admin: 06/25/18 11:47 Dose: 20 mg Hydroxyzine HCl (Atarax) 50 mg PO Q8 PRN PRN Reason: Allergy symptoms Last Admin: 06/24/18 10:49 Dose: 50 mg Doxycycline Hyclate 100 mg/ (Sodium Chloride) 100 mls @ 100 mls/hr IVPB Q12H [facility]; Protocol Last Admin: 06/25/18 03:57 Dose: 100 mls/hr Aztreonam 1 gm/ Sodium (Chloride) 100 mls @ 200 mls/hr IVPB Q8H [facility]; Protocol Last Admin: 06/25/18 11:38 Dose: 200 mls/hr Loratadine (Claritin) 10 mg PO DAILY [facility] Last Admin: 06/25/18 11:49 Dose: 10 mg Morphine Sulfate (Morphine) 5 mg IVP Q6 [facility] Last Admin: 06/25/18 13:00 Dose: Not Given Ondansetron HCl (Zofran Inj) 4 mg IVP Q6H PRN PRN Reason: GI distress Last Admin: 06/23/18 19:55 Dose: 4 mg Oxycodone/Acetaminophen (Percocet 5/325 Mg Tab) 2 tab PO Q4H PRN PRN Reason: pain 1-8 Stop: 06/27/18 13:53 Last Admin: 06/24/18 16:02 Dose: 2 tab Pantoprazole Sodium (Protonix Ec Tab) 40 mg PO DAILY [facility] Last Admin: 06/25/18 11:53 Dose: Not Given Saccharomyces Boulardii (Florastor) 250 mg PO BID [facility] Last Admin: 06/25/18 11:52 Dose: Not Given Sodium Hypochlorite (Dakins Solution 0.25%) 10 ml TOP BID [facility] - Labs Labs: 06/25/18 12:16 06/25/18 12:16 PT 11.5 SECONDS (9.7-12.2) 06/17/18 13:52 INR 1.1 06/17/18 13:52 APTT 34 SECONDS (21-34) 06/17/18 13:52 - Constitutional Appears: Non-toxic, Chronically Ill - Head Exam Head Exam: NORMOCEPHALIC - Eye Exam Eye Exam: PERRL - ENT Exam ENT Exam: Mucous Membranes Dry - Neck Exam Neck Exam: absent: Lymphadenopathy - Respiratory Exam Respiratory Exam: Decreased Breath Sounds - Cardiovascular Exam Cardiovascular Exam: REGULAR RHYTHM - GI/Abdominal Exam GI & Abdominal Exam: Distended, Soft - Rectal Exam Rectal Exam: Deferred - Exam Exam: NORMAL INSPECTION - Extremities Exam Extremities Exam: absent: Pedal Edema - Back Exam Back Exam: absent: CVA tenderness (L), CVA tenderness (R) - Neurological Exam Neurological Exam: Alert, Awake, Oriented x3 - Psychiatric Exam Psychiatric exam: Depressed - Skin Skin Exam: Dry Assessment and Plan (1) Abscess Status: Acute (2) Abscess of groin, left Status: Acute (3) Abscess of groin, right Status: Acute - Assessment and Plan (Free Text) Assessment: comfortable nad c/o pain weak afeb IV Azactam reordered for OR debridement
[2018-06-25] MEDS ORDERED: Dextrose 5%/0.45% NS 1,000 ML IV ONE (13:45)
[2018-06-25] MEDS ORDERED: Midazolam 2 MG/2 ML VIAL ONE (15:11)
[2018-06-25] MEDS ORDERED: Propofol 10 mg/ml Inj (20 ML) ONE (15:11)
[2018-06-25] MEDS ORDERED: Bupivacaine 0.25% 20 ML INJ IJ ONE (15:38)
--- NOTE | 2018-06-25 16:24 | CP.PCM.PN ---
Subjective - Date & Time of Evaluation Date of Evaluation: 06/25/18 Time of Evaluation: 08:45 - Subjective Subjective: PGY2- Progress Note for Dr. Diehl Patient seen and examined at bedside. No acute events overnight. Patient is still experiencing left sided buttock pain. She is currently NPO as she is scheduled to go to the OR today for excision of lump on buttocks. She has no fevers, chills, nausea, vomiting, diarrhea, constipation, chest pain, shortness of breath. Objective - Vital Signs/Intake and Output Vital Signs (last 24 hours): Temp Pulse Resp BP Pulse Ox 98.9 F 71 20 98/64 L 97 06/25/18 08:20 06/25/18 08:20 06/25/18 08:20 06/25/18 08:20 06/25/18 08:20 Intake and Output: 06/25/18 06/25/18 06:59 18:59 Intake Total 800 200 Balance 800 200 - Medications Medications: Current Medications Alprazolam (Xanax) 1 mg PO BID PRN PRN Reason: Anxiety Last Admin: 06/24/18 22:31 Dose: 1 mg Dicyclomine HCl (Bentyl) 10 mg PO Q6 [facility] Last Admin: 06/25/18 11:52 Dose: Not Given Docusate Sodium (Colace) 100 mg PO BID [facility] Last Admin: 06/25/18 11:52 Dose: Not Given Enoxaparin Sodium (Lovenox) 40 mg SC DAILY [facility] Last Admin: 06/25/18 11:47 Dose: Not Given Famotidine (Pepcid) 20 mg PO BID [facility] Last Admin: 06/25/18 11:47 Dose: 20 mg Hydroxyzine HCl (Atarax) 50 mg PO Q8 PRN PRN Reason: Allergy symptoms Last Admin: 06/24/18 10:49 Dose: 50 mg Doxycycline Hyclate 100 mg/ (Sodium Chloride) 100 mls @ 100 mls/hr IVPB Q12H [facility]; Protocol Last Admin: 06/25/18 14:22 Dose: 100 mls/hr Aztreonam 1 gm/ Sodium (Chloride) 100 mls @ 200 mls/hr IVPB Q8H [facility]; Protocol Last Admin: 06/25/18 11:38 Dose: 200 mls/hr Dextrose/Sodium Chloride (Dextrose 5%/0.45% Ns 1000 Ml) 1,000 mls @ 125 mls/hr IV .Q8H ONE Stop: 06/25/18 21:44 Last Admin: 06/25/18 13:48 Dose: 125 mls/hr Loratadine (Claritin) 10 mg PO DAILY [facility] Last Admin: 06/25/18 11:49 Dose: 10 mg Morphine Sulfate (Morphine) 5 mg IVP Q6 [facility] Last Admin: 06/25/18 13:00 Dose: Not Given Ondansetron HCl (Zofran Inj) 4 mg IVP Q6H PRN PRN Reason: GI distress Last Admin: 06/23/18 19:55 Dose: 4 mg Oxycodone/Acetaminophen (Percocet 5/325 Mg Tab) 2 tab PO Q4H PRN PRN Reason: pain 1-8 Stop: 06/27/18 13:53 Last Admin: 06/24/18 16:02 Dose: 2 tab Pantoprazole Sodium (Protonix Ec Tab) 40 mg PO DAILY [facility] Last Admin: 06/25/18 11:53 Dose: Not Given Saccharomyces Boulardii (Florastor) 250 mg PO BID [facility] Last Admin: 06/25/18 11:52 Dose: Not Given Sodium Hypochlorite (Dakins Solution 0.25%) 10 ml TOP BID [facility] Last Admin: 06/25/18 10:00 Dose: Not Given - Labs Labs: 06/25/18 12:16 06/25/18 12:16 PT 11.5 SECONDS (9.7-12.2) 06/17/18 13:52 INR 1.1 06/17/18 13:52 APTT 34 SECONDS (21-34) 06/17/18 13:52 - Additional Findings Additional findings: - Constitutional Appears: Non-toxic, No Acute Distress - Head Exam Head Exam: ATRAUMATIC, NORMAL INSPECTION, NORMOCEPHALIC - Eye Exam Eye Exam: EOMI, Normal appearance - ENT Exam ENT Exam: Mucous Membranes Moist - Respiratory Exam Respiratory Exam: Clear to Ausculation Bilateral, NORMAL BREATHING PATTERN - Cardiovascular Exam Cardiovascular Exam: REGULAR RHYTHM, RRR, +S1, +S2 - GI/Abdominal Exam GI & Abdominal Exam: Soft, Normal Bowel Sounds. absent: Tenderness - Extremities Exam Extremities Exam: Normal Inspection. absent: Tenderness Additional comments: thigh and groin wrapped in c/d/i dressing - Back Exam Back Exam: NORMAL INSPECTION - Neurological Exam Neurological Exam: Alert, Awake, Oriented x3 - Psychiatric Exam Psychiatric exam: Normal Affect, Normal Mood - Skin Skin Exam: Warm Additional comments: dressings c/d/i Assessment and Plan - Assessment and Plan (Free Text) Plan: Bilateral Groin Abscesses - Chronic infection to this location with multiple I&D's in the past. OR on 06/17/18 and repeat I&D 06/18/18, OR on 06/19/18 for packing change and irrigation of wounds. OR on 06/23. OR on 06/25 for left buttock papule. - per Dr. Siddiqui: - Colace 100mg po bid - Percocet 2 tab po q4 prn - Toradol 30mg IVP q6hrs prn - morphine 5mg IVP prn severe pain - Doxycycline 100mg q12hrs - antibiotics per ID: Dr. Gastelum - groin wound on previous admissions have grown Acinetobacter Baumannii, E. Coli, pseudomonas and Proteus Mirabilis Cx 05/29/18: pseudomonas and E. coli Cx 06/19/18: Proteus/Klebsiella -Afebrile -Normal WBC Chronic Diarrhea - Continue Home Bentyl 10mg po q6h Pruritus/Seasonal Allergies - Continue Home Atarax 50mg po q8 - Continue Home Claritin 10 mg po daily Anxiety - Continue Home Xanax 1mg po bid Prophylaxis - DVT: per Surgery: Lovenox 40mg SC daily - hold prior to surgery - Protonix 40mg IV daily - Florastor 250mg po bid - Zofran PRN nausea - PT eval All medical management as per Dr. Fazal Hooker Micha PGY2
[2018-06-25] MEDS: Lactated Ringer's 1,000 ML IV SCH (22:43)
[2018-06-26] MEDS: Aztreonam 1 GM in Sodium Chloride 0.9% 100 ML IVPB SCH ×3 (02:39→17:29)
[2018-06-26] MEDS: Oxycodone/Acetaminophen 5/325 mg Tab PO PRN ×3 (03:17→22:04)
--- NOTE | 2018-06-26 03:35 | OP ---
PROCEDURE DATE: 06/25/2018 PREOPERATIVE DIAGNOSIS: Infected sacral mass and rectal abscess. POSTOPERATIVE DIAGNOSIS: Infected sacral mass and rectal abscess. PROCEDURE PERFORMED: 1. Excision of infected sacral mass and drainage of underlying abscess. 2. 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 SURGEON: Nitish Siddiqui MD ANESTHESIA: General. BLOOD LOSS: 50 mL. POSTOP CONDITION: Stable. INDICATION FOR SURGERY: This is a 37-year-old female who has undergone multiple procedures for infected groin wounds and recurrent infected abscesses of the groin. She currently has two new abscesses. One of the lateral right buttock region and an infected mass of the sacral region. She is now taken back to the operating room for further treatment. GROSS FINDINGS: The infected sacral mass was removed and the underlying pus was drained. 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 The infection involved both the rectum and the pelvis. DESCRIPTION OF PROCEDURE: The patient was taken to the operating room. General anesthesia was administered. The patient was placed in lithotomy position. The rectal and buttock areas were prepped and draped. Incision was made overlying the sacral mass. It was completely dissected free and removed. Underlying tissue was debrided and pus was drained. The wound was irrigated with saline and a partial tissue flap closure with counterincision was performed at the periphery. The central portion of the wound was packed with wet saline gauze. Next, an incision was made into the fistula on the inferolateral buttock, and a probe was passed into the posterior midline in the anus. The overlying tissue was divided, used the Bovie, leaving a large amount of bleeding. Once the bleeding was controlled using the Bovie and clamps and suture ligatures, the wounds were irrigated. A larger rectal blood vessel was repaired. Pararectal blood vessel was repaired. The wound was irrigated with copious amounts of saline solution. A partial tissue flap closure was performed totalling 12 sq cm, and the remainder of the wound was packed open with wet saline gauze. The patient tolerated the procedure well and returned to recovery room in stable condition. Nitish Siddiqui MD
[2018-06-26] MEDS: Lactated Ringer's 1,000 ML IV SCH ×3 (04:47→20:42)
[2018-06-26] MEDS: Morphine 4 MG/ML VIAL IVP SCH ×3 (05:29→18:28)
[2018-06-26] MEDS: Pantoprazole 40 mg EC Tab PO SCH (09:52)
[2018-06-26] MEDS: Dakin's Topical 0.25%-Half Strength (480 ml) TOP SCH ×2 (09:52→17:31)
[2018-06-26] MEDS: Saccharomyces Boulardi 250 mg Cap PO SCH ×2 (09:52→18:26)
[2018-06-26] MEDS: Enoxaparin 40 mg Syringe SC SCH (09:52)
[2018-06-26 11:06] LABS: BASO % 0.4 % (0.0-2.0); EOS # 0.1 K/uL (0.0-0.7); EOS % 1.7 % (0.0-4.0); HEMOGLOBIN 8.5 g/dL (11.0-16.0); LYMPH # 1.9 K/uL (1.0-4.3); LYMPH % 25.7 % (20.0-40.0); MEAN CELL VOLUME 88.8 fL (81.0-99.0); MEAN CORPUSCULAR HGB CONC 33.8 g/dL (33.0-37.0); MEAN PLATELET VOLUME 7.2 fL (7.2-11.7); MONO # 0.8 K/uL (0.0-0.8); MONO % 10.2 % (0.0-10.0); NEUT # 4.6 K/uL (1.8-7.0); RBC 2.83 Mil/uL (3.80-5.20); RED CELL DISTRIBUTION WIDTH 15.1 % (11.5-14.5); WHITE BLOOD COUNT 7.5 K/uL (4.8-10.8)
[2018-06-26 11:21] LABS: ALBUMIN 3.1 g/dL (3.5-5.0); ALT/SGPT 27 U/L (9-52); AST/SGOT 15 U/L (14-36); BLOOD UREA NITROGEN 9 mg/dL (7-17); CALCIUM 8.7 mg/dl (8.6-10.4); GFR NON-AFRICAN AMERICAN > 60
--- NOTE | 2018-06-26 11:31 | CP.PCM.PN ---
Subjective - Date & Time of Evaluation Date of Evaluation: 06/26/18 Time of Evaluation: 07:00 - Subjective Subjective: PGY2- Progress Note for Dr. Diehl Patient seen and examined at bedside and in no acute distress. Patient is POD #1 s/p removal of infected sacral mass with rectal abscess and anal fistula. Patient is uncomfortable because she has no good position to sleep to stay off of wounds. Patient denies nausea, vomiting, constipation or diarrhea. Objective - Vital Signs/Intake and Output Vital Signs (last 24 hours): Temp Pulse Resp BP Pulse Ox 99.9 F H 93 H 20 100/62 98 06/26/18 07:52 06/26/18 07:52 06/26/18 07:52 06/26/18 07:52 06/26/18 07:52 Intake and Output: 06/26/18 06/26/18 06:59 18:59 Intake Total 2550 Output Total 2000 Balance 550 - Medications Medications: Current Medications Alprazolam (Xanax) 1 mg PO BID PRN PRN Reason: Anxiety Last Admin: 06/25/18 21:46 Dose: 1 mg Dicyclomine HCl (Bentyl) 10 mg PO Q6 [facility] Last Admin: 06/26/18 05:35 Dose: Not Given Docusate Sodium (Colace) 100 mg PO BID [facility] Last Admin: 06/26/18 09:51 Dose: Not Given Enoxaparin Sodium (Lovenox) 40 mg SC DAILY [facility] Last Admin: 06/26/18 09:52 Dose: Not Given Famotidine (Pepcid) 20 mg PO BID [facility] Last Admin: 06/26/18 09:52 Dose: Not Given Hydroxyzine HCl (Atarax) 50 mg PO Q8 PRN PRN Reason: Allergy symptoms Last Admin: 06/25/18 18:18 Dose: 50 mg Doxycycline Hyclate 100 mg/ (Sodium Chloride) 100 mls @ 100 mls/hr IVPB Q12H [facility]; Protocol Last Admin: 06/26/18 02:39 Dose: 100 mls/hr Aztreonam 1 gm/ Sodium (Chloride) 100 mls @ 200 mls/hr IVPB Q8H [facility]; Protocol Last Admin: 06/26/18 10:10 Dose: 200 mls/hr Lactated Ringer's (Lactated Ringer's) 1,000 mls @ 150 mls/hr IV .Q6H40M [facility] Last Admin: 06/26/18 11:27 Dose: 150 mls/hr Loratadine (Claritin) 10 mg PO DAILY [facility] Last Admin: 06/26/18 09:51 Dose: Not Given Morphine Sulfate (Morphine) 5 mg IVP Q6 [facility] Last Admin: 06/26/18 11:19 Dose: 5 mg Ondansetron HCl (Zofran Inj) 4 mg IVP Q6H PRN PRN Reason: GI distress Last Admin: 06/26/18 11:25 Dose: 4 mg Oxycodone/Acetaminophen (Percocet 5/325 Mg Tab) 2 tab PO Q4H PRN PRN Reason: pain 1-8 Stop: 06/27/18 13:53 Last Admin: 06/26/18 03:17 Dose: 2 tab Pantoprazole Sodium (Protonix Ec Tab) 40 mg PO DAILY [facility] Last Admin: 06/26/18 09:52 Dose: Not Given Saccharomyces Boulardii (Florastor) 250 mg PO BID [facility] Last Admin: 06/26/18 09:52 Dose: Not Given Sodium Hypochlorite (Dakins Solution 0.25%) 10 ml TOP BID [facility] Last Admin: 06/26/18 09:52 Dose: Not Given - Labs Labs: 06/26/18 10:58 06/26/18 10:58 PT 11.5 SECONDS (9.7-12.2) 06/17/18 13:52 INR 1.1 06/17/18 13:52 APTT 34 SECONDS (21-34) 06/17/18 13:52 - Constitutional Appears: Non-toxic, No Acute Distress - Head Exam Head Exam: ATRAUMATIC, NORMAL INSPECTION, NORMOCEPHALIC - Eye Exam Eye Exam: EOMI, Normal appearance - ENT Exam ENT Exam: Mucous Membranes Moist - Respiratory Exam Respiratory Exam: Clear to Ausculation Bilateral, NORMAL BREATHING PATTERN. absent: Rales, Rhonchi, Wheezes - Cardiovascular Exam Cardiovascular Exam: REGULAR RHYTHM, RRR, +S1, +S2 - GI/Abdominal Exam GI & Abdominal Exam: Soft, Normal Bowel Sounds. absent: Tenderness - Extremities Exam Extremities Exam: Normal Inspection. 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 OR on 06/17/18 and repeat I&D 06/18/18, OR on 06/19/18 for packing change and irrigation of wounds. OR on 06/23. OR on 06/25 for left buttock papule. - per Dr. Siddiqui: - Colace 100mg po bid - Percocet 2 tab po q4 prn - morphine 5mg IVP prn severe pain - Doxycycline 100mg q12hrs -Aztreonam 1 g q8h - antibiotics per ID: Dr. Gastelum - groin wound on previous admissions have grown Acinetobacter Baumannii, E. Coli, pseudomonas and Proteus Mirabilis Cx 05/29/18: pseudomonas and E. coli Cx 06/19/18: Proteus/Klebsiella Cx 06/20: Proteus/Klebsiella -tmax 101 on 06/26/18 -Normal WBC Infected Sacral Mass with Anal Fistula pod #1 s/p excision repeat OR today -meds as above Chronic Diarrhea - Continue Home Bentyl 10mg po q6h Pruritus/Seasonal Allergies - Continue Home Atarax 50mg po q8 - Continue Home Claritin 10 mg po daily Anxiety - Continue Home Xanax 1mg po bid Prophylaxis - DVT: per Surgery: Lovenox 40mg SC daily - hold prior to surgery - Pepcid 20mg po BID - Florastor 250mg po bid - Zofran PRN nausea - PT eval All medical management as per Dr. Diehl
[2018-06-26] MEDS ORDERED: Bupivacaine 0.25% 20 ML INJ IJ ONE (13:51)
[2018-06-26] MEDS ORDERED: Midazolam 2 MG/2 ML VIAL ONE (13:52)
[2018-06-26] MEDS ORDERED: Propofol 10 mg/ml Inj (20 ML) ONE (13:52)
[2018-06-26] MEDS ORDERED: HYDROmorphone 0.5 mg/0.5 ml ISec IVP PRN (14:42)
--- NOTE | 2018-06-26 16:25 | CP.PCM.PN ---
Subjective - Date & Time of Evaluation Date of Evaluation: 06/26/18 Time of Evaluation: 08:00 - Subjective Subjective: fever s/p debridement c/o pain Objective - Vital Signs/Intake and Output Vital Signs (last 24 hours): Temp Pulse Resp BP Pulse Ox 98.4 F 80 20 107/62 98 06/26/18 16:13 06/26/18 16:13 06/26/18 16:13 06/26/18 16:13 06/26/18 16:13 Intake and Output: 06/26/18 06/26/18 06:59 18:59 Intake Total 2550 2900 Output Total 2000 1100 Balance 550 1800 - Medications Medications: Current Medications Alprazolam (Xanax) 1 mg PO BID PRN PRN Reason: Anxiety Last Admin: 06/25/18 21:46 Dose: 1 mg Dicyclomine HCl (Bentyl) 10 mg PO Q6 [facility] Last Admin: 06/26/18 11:29 Dose: Not Given Docusate Sodium (Colace) 100 mg PO BID [facility] Last Admin: 06/26/18 09:51 Dose: Not Given Enoxaparin Sodium (Lovenox) 40 mg SC DAILY [facility] Last Admin: 06/26/18 09:52 Dose: Not Given Famotidine (Pepcid) 20 mg PO BID [facility] Last Admin: 06/26/18 09:52 Dose: Not Given Hydroxyzine HCl (Atarax) 50 mg PO Q8 PRN PRN Reason: Allergy symptoms Last Admin: 06/25/18 18:18 Dose: 50 mg Doxycycline Hyclate 100 mg/ (Sodium Chloride) 100 mls @ 100 mls/hr IVPB Q12H [facility]; Protocol Last Admin: 06/26/18 16:08 Dose: 100 mls/hr Aztreonam 1 gm/ Sodium (Chloride) 100 mls @ 200 mls/hr IVPB Q8H [facility]; Protocol Last Admin: 06/26/18 10:10 Dose: 200 mls/hr Lactated Ringer's (Lactated Ringer's) 1,000 mls @ 150 mls/hr IV .Q6H40M [facility] Last Admin: 06/26/18 11:27 Dose: 150 mls/hr Loratadine (Claritin) 10 mg PO DAILY [facility] Last Admin: 06/26/18 09:51 Dose: Not Given Morphine Sulfate (Morphine) 5 mg IVP Q6 [facility] Last Admin: 06/26/18 11:19 Dose: 5 mg Morphine Sulfate (Morphine) 1 mg IVP Q10M PRN PRN Reason: Pain, severe (8-10) Stop: 06/26/18 16:49 Last Admin: 06/26/18 15:15 Dose: 1 mg Ondansetron HCl (Zofran Inj) 4 mg IVP Q6H PRN PRN Reason: GI distress Last Admin: 06/26/18 11:25 Dose: 4 mg Oxycodone/Acetaminophen (Percocet 5/325 Mg Tab) 2 tab PO Q4H PRN PRN Reason: pain 1-8 Stop: 06/27/18 13:53 Last Admin: 06/26/18 03:17 Dose: 2 tab Pantoprazole Sodium (Protonix Ec Tab) 40 mg PO DAILY [facility] Last Admin: 06/26/18 09:52 Dose: Not Given Saccharomyces Boulardii (Florastor) 250 mg PO BID [facility] Last Admin: 06/26/18 09:52 Dose: Not Given Sodium Hypochlorite (Dakins Solution 0.25%) 10 ml TOP BID [facility] Last Admin: 06/26/18 09:52 Dose: Not Given - Labs Labs: 06/26/18 10:58 06/26/18 10:58 PT 11.5 SECONDS (9.7-12.2) 06/17/18 13:52 INR 1.1 06/17/18 13:52 APTT 34 SECONDS (21-34) 06/17/18 13:52 - Constitutional Appears: Non-toxic, Chronically Ill - Head Exam Head Exam: NORMOCEPHALIC - Eye Exam Eye Exam: PERRL - ENT Exam ENT Exam: Mucous Membranes Dry - Neck Exam Neck Exam: absent: Lymphadenopathy - Respiratory Exam Respiratory Exam: Decreased Breath Sounds - Cardiovascular Exam Cardiovascular Exam: REGULAR RHYTHM - GI/Abdominal Exam GI & Abdominal Exam: Distended - Rectal Exam Rectal Exam: Deferred - Exam Exam: NORMAL INSPECTION - Extremities Exam Extremities Exam: absent: Pedal Edema - Back Exam Back Exam: absent: CVA tenderness (L), CVA tenderness (R) - Neurological Exam Neurological Exam: Alert, Awake, CN II-XII Intact Assessment and Plan (1) Abscess Status: Acute (2) Abscess of groin, left Status: Acute (3) Abscess of groin, right Status: Acute - Assessment and Plan (Free Text) Assessment: cont iv rx as ordered for closure on sunday
--- NOTE | 2018-06-27 00:56 | OP ---
PROCEDURE DATE: 06/26/2018 PREOPERATIVE DIAGNOSES: 1. Bilateral large open groin wounds with abscess. 2. 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 POSTOPERATIVE DIAGNOSES: 1. Bilateral large open groin wounds with abscess. 2. 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 PROCEDURES: 1. Drainage of bilateral groin abscesses with debridement. 2. Debridement and re-drainage of rectal and pelvic abscesses (retroperitoneal) along with debridement, pulse irrigation, and partial advancement flap closure (20 sq cm). SURGEON: Nitish Siddiqui MD TYPE OF ANESTHESIA: General. ESTIMATED BLOOD LOSS: 30 mL. POSTOP CONDITION: Stable. INDICATIONS FOR SURGERY: This is a 37-year-old female, taken back for a staged procedure. She has undergone multiple procedures for bilateral retroperitoneal and groin abscesses for which she underwent radical resections of infected areas of both groins approximately 2 weeks ago. She has been taken back for dressing changes and debridements since then. The other day, she developed a large abscess on her buttock area near the sacrum; and yesterday underwent excision of her infected sacral mass along with a fistulotomy for a second area of drainage. A large rectal and pelvic abscess was discovered which was packed open at the end of the procedure, taken back today for change of multiple packings including both groins and a large rectal wound. DESCRIPTION OF PROCEDURE: The patient was taken to the operating room, general anesthesia administered, was placed in lithotomy position. After the packings were removed, the groin areas and rectal areas were prepped and draped. The bilateral groin and rectal areas were all pulse irrigated, debrided, and drained of any remaining collections. All the drainage was cultured. A pelvic and retroperitoneal abscess was drained along with bilateral deep groin abscesses. At the conclusion, the rectal wound underwent a partial tissue flap closure including full-thickness counterincisions, totaling 20 sq cm. The central portion of all the wounds were packed open with wet saline gauze. The patient tolerated the procedure well, returned to recovery room in stable condition. Nitish Siddiqui MD
[2018-06-27] MEDS: Aztreonam 1 GM in Sodium Chloride 0.9% 100 ML IVPB SCH ×3 (01:57→18:47)
[2018-06-27] MEDS: Lactated Ringer's 1,000 ML IV SCH ×5 (02:10→23:47)
[2018-06-27] MEDS: Oxycodone/Acetaminophen 5/325 mg Tab PO PRN ×4 (02:11→21:35)
[2018-06-27] MEDS: Morphine 4 MG/ML VIAL IVP SCH ×5 (05:57→23:58)
[2018-06-27 06:50] LABS: BASO % 0.5 % (0.0-2.0); EOS # 0.3 K/uL (0.0-0.7); EOS % 3.9 % (0.0-4.0); HEMOGLOBIN 7.7 g/dL (11.0-16.0); LYMPH # 2.4 K/uL (1.0-4.3); LYMPH % 33.3 % (20.0-40.0); MEAN CELL VOLUME 89.8 fL (81.0-99.0); MEAN CORPUSCULAR HEMOGLOBIN 30.3 pg (27.0-31.0); MEAN CORPUSCULAR HGB CONC 33.8 g/dL (33.0-37.0); MEAN PLATELET VOLUME 7.4 fL (7.2-11.7); MONO # 0.8 K/uL (0.0-0.8); MONO % 10.7 % (0.0-10.0); NEUT # 3.7 K/uL (1.8-7.0); NEUT % 51.6 % (50.0-75.0); RBC 2.53 Mil/uL (3.80-5.20); RED CELL DISTRIBUTION WIDTH 14.8 % (11.5-14.5); WHITE BLOOD COUNT 7.2 K/uL (4.8-10.8)
--- NOTE | 2018-06-27 07:27 | CP.PCM.PN ---
Subjective - Date & Time of Evaluation Date of Evaluation: 06/27/18 Time of Evaluation: 07:26 - Subjective Subjective: PGY2 Medicine Note for Dr. Diehl Patient seen and examined this morning at bedside this morning. No acute events overnight. Patient reports poor sleep due to pain and the inability to get comfortable. She has no other complaints at this time. Denies nausea, vomiting, diarrhea or constipation. Objective - Vital Signs/Intake and Output Vital Signs (last 24 hours): Temp Pulse Resp BP Pulse Ox 98.8 F 82 20 105/64 99 06/27/18 00:10 06/27/18 00:10 06/27/18 00:10 06/27/18 00:10 06/27/18 00:10 Intake and Output: 06/27/18 06/27/18 06:59 18:59 Intake Total 3100 Output Total 2500 Balance 600 - Medications Medications: Current Medications Alprazolam (Xanax) 1 mg PO BID PRN PRN Reason: Anxiety Last Admin: 06/26/18 20:42 Dose: 1 mg Dicyclomine HCl (Bentyl) 10 mg PO Q6 [facility] Last Admin: 06/27/18 05:56 Dose: 10 mg Docusate Sodium (Colace) 100 mg PO BID [facility] Last Admin: 06/26/18 18:27 Dose: 100 mg Enoxaparin Sodium (Lovenox) 40 mg SC DAILY [facility] Last Admin: 06/26/18 09:52 Dose: Not Given Famotidine (Pepcid) 20 mg PO BID [facility] Last Admin: 06/26/18 18:27 Dose: 20 mg Hydroxyzine HCl (Atarax) 50 mg PO Q8 PRN PRN Reason: Allergy symptoms Last Admin: 06/27/18 01:58 Dose: 50 mg Doxycycline Hyclate 100 mg/ (Sodium Chloride) 100 mls @ 100 mls/hr IVPB Q12H [facility]; Protocol Last Admin: 06/27/18 02:12 Dose: 100 mls/hr Aztreonam 1 gm/ Sodium (Chloride) 100 mls @ 200 mls/hr IVPB Q8H [facility]; Protocol Last Admin: 06/27/18 01:57 Dose: 200 mls/hr Lactated Ringer's (Lactated Ringer's) 1,000 mls @ 150 mls/hr IV .Q6H40M [facility] Last Admin: 06/27/18 02:10 Dose: 150 mls/hr Loratadine (Claritin) 10 mg PO DAILY [facility] Last Admin: 06/26/18 09:51 Dose: Not Given Morphine Sulfate (Morphine) 5 mg IVP Q6 [facility] Last Admin: 06/27/18 05:57 Dose: 5 mg Ondansetron HCl (Zofran Inj) 4 mg IVP Q6H PRN PRN Reason: GI distress Last Admin: 06/26/18 11:25 Dose: 4 mg Oxycodone/Acetaminophen (Percocet 5/325 Mg Tab) 2 tab PO Q4H PRN PRN Reason: pain 1-8 Stop: 06/27/18 13:53 Last Admin: 06/27/18 02:11 Dose: 2 tab Pantoprazole Sodium (Protonix Ec Tab) 40 mg PO DAILY [facility] Last Admin: 06/26/18 09:52 Dose: Not Given Saccharomyces Boulardii (Florastor) 250 mg PO BID [facility] Last Admin: 06/26/18 18:26 Dose: 250 mg Sodium Hypochlorite (Dakins Solution 0.25%) 10 ml TOP BID [facility] Last Admin: 06/26/18 17:31 Dose: Not Given - Labs Labs: 06/27/18 06:30 06/26/18 10:58 PT 11.5 SECONDS (9.7-12.2) 06/17/18 13:52 INR 1.1 06/17/18 13:52 APTT 34 SECONDS (21-34) 06/17/18 13:52 - Constitutional Appears: Non-toxic, No Acute Distress - Head Exam Head Exam: ATRAUMATIC, NORMOCEPHALIC - Eye Exam Eye Exam: Normal appearance - ENT Exam ENT Exam: Mucous Membranes Moist - Neck Exam Neck Exam: Full ROM - Respiratory Exam Respiratory Exam: Clear to Ausculation Bilateral, NORMAL BREATHING PATTERN. absent: Accessory Muscle Use, Rales, Rhonchi, Wheezes, Respiratory Distress - Cardiovascular Exam Cardiovascular Exam: REGULAR RHYTHM, +S1 - GI/Abdominal Exam GI & Abdominal Exam: Soft. 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 OR on 06/17/18 and repeat I&D 06/18/18, OR on 06/19/18 for packing change and irrigation of wounds. OR on 06/23. OR on 06/25 for left buttock papule. Scheduled for skin closure on Sunday. - per Dr. Siddiqui: - Colace 100mg po bid - Percocet 2 tab po q4 prn - morphine 5mg IVP prn severe pain - Doxycycline 100mg q12hrs - Aztreonam 1 g q8h - antibiotics per ID: Dr. Gastelum - groin wound on previous admissions have grown Acinetobacter Baumannii, E. Coli, pseudomonas and Proteus Mirabilis Cx 05/29/18: pseudomonas and E. coli Cx 06/19/18: Proteus/Klebsiella Cx 06/20: Proteus/Klebsiella Sacral Abscess Cx 06/25: pending -tmax 101 on 06/26/18 - afebrile overnight night. -Normal WBC Infected Sacral Mass with Anal Fistula pod #2 s/p excision repeat OR today -meds as above Chronic Diarrhea - Continue Home Bentyl 10mg po q6h Pruritus/Seasonal Allergies - Continue Home Atarax 50mg po q8 - Continue Home Claritin 10 mg po daily Anxiety - Continue Home Xanax 1mg po bid Prophylaxis - DVT: per Surgery: Lovenox 40mg SC daily - hold prior to surgery - Pepcid 20mg po BID - Florastor 250mg po bid - Zofran PRN nausea - PT eval All medical management as per Dr. Fazal Hooker Micha PGY2
[2018-06-27 08:03] LABS: ALBUMIN 2.9 g/dL (3.5-5.0); ALT/SGPT 34 U/L (9-52); AST/SGOT 21 U/L (14-36); BLOOD UREA NITROGEN 10 mg/dL (7-17); CALCIUM 8.5 mg/dl (8.6-10.4); GFR NON-AFRICAN AMERICAN > 60
[2018-06-27] MEDS: Enoxaparin 40 mg Syringe SC SCH (09:49)
[2018-06-27] MEDS: Saccharomyces Boulardi 250 mg Cap PO SCH ×2 (09:49→17:20)
[2018-06-27] MEDS: Dakin's Topical 0.25%-Half Strength (480 ml) TOP SCH ×2 (09:49→17:18)
[2018-06-27] MEDS: Pantoprazole 40 mg EC Tab PO SCH (09:50)
[2018-06-27] MEDS ORDERED: EPINEPHrine 1:1000 Nasal Sol(30mL) ONE (11:34)
[2018-06-27] MEDS ORDERED: Propofol 10 mg/ml Inj (20 ML) ONE (12:10)
[2018-06-27] MEDS ORDERED: Midazolam 2 MG/2 ML VIAL ONE (12:10)
--- NOTE | 2018-06-27 17:14 | CP.PCM.PN ---
Subjective - Date & Time of Evaluation Date of Evaluation: 06/27/18 Time of Evaluation: 09:00 - Subjective Subjective: still in pain nad afeb Objective - Vital Signs/Intake and Output Vital Signs (last 24 hours): Temp Pulse Resp BP Pulse Ox 98.2 F 63 20 99/61 L 99 06/27/18 15:58 06/27/18 15:58 06/27/18 15:58 06/27/18 15:58 06/27/18 15:58 Intake and Output: 06/27/18 06/27/18 06:59 18:59 Intake Total 3100 250 Output Total 2500 1900 Balance 600 -1650 - Medications Medications: Current Medications Alprazolam (Xanax) 1 mg PO BID PRN PRN Reason: Anxiety Last Admin: 06/26/18 20:42 Dose: 1 mg Dicyclomine HCl (Bentyl) 10 mg PO Q6 [facility] Last Admin: 06/27/18 11:54 Dose: Not Given Docusate Sodium (Colace) 100 mg PO BID [facility] Last Admin: 06/27/18 09:49 Dose: Not Given Enoxaparin Sodium (Lovenox) 40 mg SC DAILY [facility] Last Admin: 06/27/18 09:49 Dose: Not Given Famotidine (Pepcid) 20 mg PO BID [facility] Last Admin: 06/27/18 09:50 Dose: Not Given Hydroxyzine HCl (Atarax) 50 mg PO Q8 PRN PRN Reason: Allergy symptoms Last Admin: 06/27/18 01:58 Dose: 50 mg Aztreonam 1 gm/ Sodium (Chloride) 100 mls @ 200 mls/hr IVPB Q8H [facility]; Protocol Last Admin: 06/27/18 10:26 Dose: 200 mls/hr Lactated Ringer's (Lactated Ringer's) 1,000 mls @ 150 mls/hr IV .Q6H40M [facility] Last Admin: 06/27/18 14:34 Dose: Not Given Lactated Ringer's (Lactated Ringer's) 1,000 mls @ 100 mls/hr IV .Q10H [facility] Loratadine (Claritin) 10 mg PO DAILY [facility] Last Admin: 06/27/18 09:48 Dose: Not Given Morphine Sulfate (Morphine) 5 mg IVP Q6 [facility] Last Admin: 06/27/18 11:54 Dose: Not Given Ondansetron HCl (Zofran Inj) 4 mg IVP Q6H PRN PRN Reason: GI distress Last Admin: 06/26/18 11:25 Dose: 4 mg Oxycodone/Acetaminophen (Percocet 5/325 Mg Tab) 2 tab PO Q4H PRN PRN Reason: Pain, moderate (4-7) Stop: 06/30/18 16:55 Pantoprazole Sodium (Protonix Ec Tab) 40 mg PO DAILY [facility] Last Admin: 06/27/18 09:50 Dose: Not Given Saccharomyces Boulardii (Florastor) 250 mg PO BID [facility] Last Admin: 06/27/18 09:49 Dose: Not Given Sodium Hypochlorite (Dakins Solution 0.25%) 10 ml TOP BID [facility] Last Admin: 06/27/18 09:49 Dose: Not Given - Labs Labs: 06/27/18 06:30 06/27/18 06:30 PT 11.5 SECONDS (9.7-12.2) 06/17/18 13:52 INR 1.1 06/17/18 13:52 APTT 34 SECONDS (21-34) 06/17/18 13:52 - Constitutional Appears: Non-toxic, Chronically Ill - Head Exam Head Exam: NORMOCEPHALIC - Eye Exam Eye Exam: PERRL - ENT Exam ENT Exam: Normal External Ear Exam - Neck Exam Neck Exam: absent: Lymphadenopathy - Respiratory Exam Respiratory Exam: Decreased Breath Sounds - Cardiovascular Exam Cardiovascular Exam: REGULAR RHYTHM - GI/Abdominal Exam GI & Abdominal Exam: Distended - Rectal Exam Rectal Exam: Deferred Assessment and Plan (1) Abscess Status: Acute (2) Abscess of groin, left Status: Acute (3) Abscess of groin, right Status: Acute - Assessment and Plan (Free Text) Assessment: cont iv rx
--- NOTE | 2018-06-27 22:31 | OP ---
PROCEDURE DATE: 06/27/2018 PREOPERATIVE DIAGNOSIS: Multiple open wounds, abscesses, lower extremities and groin areas. POSTOPERATIVE DIAGNOSIS: Multiple open wounds, abscesses, lower extremities and groin areas. PROCEDURE PERFORMED: Re-drainage of rectal and pelvic (retroperitoneal abscess) along with re-debridement and change of packing, bilateral groin wounds. SURGEON: Nitish Siddiqui MD TYPE OF ANESTHESIA: General. ESTIMATED BLOOD LOSS: 40 mL. POSTOPERATIVE CONDITION: Stable. INDICATIONS FOR SURGERY: This is a staged procedure for a 37-year-old female, status post multiple OR debridements and drainage of chronic and infections of both groins, now the rectal and pelvic area. She now is taken back to the operating room for change of all her packings in addition to re-drainage of any collections in her rectal and pelvic wound. DESCRIPTION OF PROCEDURE: The patient was taken to the operating room, general anesthesia was administered. She was placed in a lithotomy position and the rectal and pelvic areas were prepped and draped. The packings had been removed prior to prepping and draping. There was a large amount of bleeding from the rectal wound once the packing was removed. It was explored and a pelvic blood vessel was exposed, mobilized, and repaired with Prolene. The wound was then pulse irrigated with saline and Kantrex solution. Partial tissue flap closures were performed at the periphery and the central portion of wound was closed packed with saline gauze. Both the groin and hip wounds were again aggressively debrided and any remaining collections were drained and cultured. Bleeding was controlled using the Bovie and the wounds were packed with wet saline gauze. The wounds were dressed sterilely. The patient tolerated the procedure well and returned to recovery room in stable condition. Nitish Siddiqui MD
[2018-06-28] MEDS: Aztreonam 1 GM in Sodium Chloride 0.9% 100 ML IVPB SCH ×3 (02:21→18:01)
[2018-06-28] MEDS: Oxycodone/Acetaminophen 5/325 mg Tab PO PRN ×3 (02:29→22:21)
[2018-06-28] MEDS: Morphine 4 MG/ML VIAL IVP SCH ×4 (06:04→23:57)
[2018-06-28 06:48] LABS: BASO % 0.7 % (0.0-2.0); EOS # 0.2 K/uL (0.0-0.7); EOS % 4.1 % (0.0-4.0); HEMOGLOBIN 7.5 g/dL (11.0-16.0); LYMPH # 2.3 K/uL (1.0-4.3); LYMPH % 37.7 % (20.0-40.0); MEAN CELL VOLUME 89.4 fL (81.0-99.0); MEAN CORPUSCULAR HEMOGLOBIN 30.3 pg (27.0-31.0); MEAN CORPUSCULAR HGB CONC 33.9 g/dL (33.0-37.0); MEAN PLATELET VOLUME 7.5 fL (7.2-11.7); MONO # 0.6 K/uL (0.0-0.8); MONO % 9.9 % (0.0-10.0); NEUT # 2.9 K/uL (1.8-7.0); NEUT % 47.6 % (50.0-75.0); RBC 2.47 Mil/uL (3.80-5.20); RED CELL DISTRIBUTION WIDTH 14.9 % (11.5-14.5)
[2018-06-28 07:26] LABS: ALBUMIN 2.8 g/dL (3.5-5.0); ALT/SGPT 37 U/L (9-52); AST/SGOT 22 U/L (14-36); BLOOD UREA NITROGEN 10 mg/dL (7-17); CALCIUM 8.1 mg/dl (8.6-10.4); GFR NON-AFRICAN AMERICAN > 60
[2018-06-28] MEDS: Enoxaparin 40 mg Syringe SC SCH (09:34)
[2018-06-28] MEDS: Pantoprazole 40 mg EC Tab PO SCH (09:35)
[2018-06-28] MEDS: Lactated Ringer's 1,000 ML IV SCH ×3 (09:42→21:38)
--- NOTE | 2018-06-28 09:46 | CP.PCM.PN ---
Subjective - Date & Time of Evaluation Date of Evaluation: 06/28/18 Time of Evaluation: 09:43 - Subjective Subjective: PGY2 Medicine Note for Dr. Diehl Patient seen and examined this morning at bedside. Patient is currently NPO and scheduled for OR at 130pm this afternoon. She reports being in a lot of pain in her buttocks due to the packing. She is hoping for the packing to be removed and closure of the site. She denies any other complaints at this time, fevers, chills, nausea, vomiting, diarrhea, constipation, chest pain, shortness of breath, numbness or tingling. Objective - Vital Signs/Intake and Output Vital Signs (last 24 hours): Temp Pulse Resp BP Pulse Ox 98.0 F 76 20 99/63 L 97 06/28/18 08:33 06/28/18 08:33 06/28/18 08:33 06/28/18 08:33 06/28/18 08:33 Intake and Output: 06/28/18 06/28/18 06:59 18:59 Intake Total 1140 Output Total 1350 Balance -210 - Medications Medications: Current Medications Alprazolam (Xanax) 1 mg PO BID PRN PRN Reason: Anxiety Last Admin: 06/28/18 09:37 Dose: 1 mg Dicyclomine HCl (Bentyl) 10 mg PO Q6 [facility] Last Admin: 06/28/18 06:04 Dose: 10 mg Docusate Sodium (Colace) 100 mg PO BID [facility] Last Admin: 06/28/18 09:34 Dose: Not Given Enoxaparin Sodium (Lovenox) 40 mg SC DAILY [facility] Last Admin: 06/28/18 09:34 Dose: Not Given Famotidine (Pepcid) 20 mg PO BID [facility] Last Admin: 06/28/18 09:35 Dose: Not Given Hydroxyzine HCl (Atarax) 50 mg PO Q8 PRN PRN Reason: Allergy symptoms Last Admin: 06/27/18 17:19 Dose: 50 mg Aztreonam 1 gm/ Sodium (Chloride) 100 mls @ 200 mls/hr IVPB Q8H [facility]; Protocol Last Admin: 06/28/18 09:42 Dose: 200 mls/hr Lactated Ringer's (Lactated Ringer's) 1,000 mls @ 100 mls/hr IV .Q10H [facility] Last Admin: 06/28/18 09:42 Dose: 100 mls/hr Loratadine (Claritin) 10 mg PO DAILY [facility] Last Admin: 06/28/18 09:34 Dose: Not Given Morphine Sulfate (Morphine) 5 mg IVP Q6 [facility] Last Admin: 06/28/18 06:04 Dose: 5 mg Ondansetron HCl (Zofran Inj) 4 mg IVP Q6H PRN PRN Reason: GI distress Last Admin: 06/26/18 11:25 Dose: 4 mg Oxycodone/Acetaminophen (Percocet 5/325 Mg Tab) 2 tab PO Q4H PRN PRN Reason: Pain, moderate (4-7) Stop: 06/30/18 16:55 Last Admin: 06/28/18 09:19 Dose: 2 tab Pantoprazole Sodium (Protonix Ec Tab) 40 mg PO DAILY [facility] Last Admin: 06/28/18 09:35 Dose: Not Given Saccharomyces Boulardii (Florastor) 250 mg PO BID [facility] Last Admin: 06/27/18 17:20 Dose: 250 mg Sodium Hypochlorite (Dakins Solution 0.25%) 10 ml TOP BID [facility] Last Admin: 06/27/18 09:49 Dose: Not Given - Labs Labs: 06/28/18 06:42 06/28/18 06:42 PT 11.5 SECONDS (9.7-12.2) 06/17/18 13:52 INR 1.1 06/17/18 13:52 APTT 34 SECONDS (21-34) 06/17/18 13:52 - Additional Findings Additional findings: - Constitutional Appears: Non-toxic, No Acute Distress - Head Exam Head Exam: ATRAUMATIC, NORMOCEPHALIC - Eye Exam Eye Exam: Normal appearance - ENT Exam ENT Exam: Mucous Membranes Moist - Neck Exam Neck Exam: Full ROM - Respiratory Exam Respiratory Exam: Clear to Ausculation Bilateral, NORMAL BREATHING PATTERN. absent: Accessory Muscle Use, Rales, Rhonchi, Wheezes, Respiratory Distress - Cardiovascular Exam Cardiovascular Exam: REGULAR RHYTHM, +S1 - GI/Abdominal Exam GI & Abdominal Exam: Soft. 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 OR on 06/17/18 and repeat I&D 06/18/18, OR on 06/19/18 for packing change and irrigation of wounds. OR on 06/23. OR on 06/25 for left buttock papule. Scheduled for skin closure today. - per Dr. Siddiqui: - Colace 100mg po bid - Percocet 2 tab po q4 prn - morphine 5mg IVP q6h prn severe pain - Doxycycline 100mg q12hrs - Aztreonam 1 g q8h - antibiotics per ID: Dr. Gastelum - groin wound on previous admissions have grown Acinetobacter Baumannii, E. Coli, pseudomonas and Proteus Mirabilis Cx 05/29/18: pseudomonas and E. coli Cx 06/19/18: Proteus/Klebsiella Cx 06/20: Proteus/Klebsiella Sacral Abscess Cx 06/25: pending -tmax 100 on 06/26/18 - afebrile overnight night. -Normal WBC Infected Sacral Mass with Anal Fistula s/p excision repeat OR today -meds as above Chronic Diarrhea - Continue Home Bentyl 10mg po q6h Pruritus/Seasonal Allergies - Continue Home Atarax 50mg po q8 - Continue Home Claritin 10 mg po daily Anxiety - Continue Home Xanax 1mg po bid Prophylaxis - DVT: per Surgery: Lovenox 40mg SC daily - hold prior to surgery - Pepcid 20mg po BID - Florastor 250mg po bid - Zofran PRN nausea - PT eval All medical management as per Dr. Fazal Hooker Micha PGY2
[2018-06-28] MEDS: Dakin's Topical 0.25%-Half Strength (480 ml) TOP SCH ×2 (11:10→17:19)
[2018-06-28] MEDS: Saccharomyces Boulardi 250 mg Cap PO SCH ×2 (11:10→18:02)
[2018-06-28] MEDS ORDERED: Lidocaine Hydrochloride 10 ML INJ ONE (13:33)
[2018-06-28] MEDS ORDERED: Bupivacaine 0.25% 20 ML INJ IJ ONE (13:33)
[2018-06-28] MEDS ORDERED: Midazolam 2 MG/2 ML VIAL ONE (13:44)
[2018-06-28] MEDS ORDERED: Propofol 10 mg/ml Inj (20 ML) ONE (13:44)
--- NOTE | 2018-06-28 17:40 | CP.PCM.PN ---
Subjective - Date & Time of Evaluation Date of Evaluation: 06/28/18 Time of Evaluation: 08:00 - Subjective Subjective: went for debridement of sacral area ? fistula recent culture sacrum + enterococcus vanco added to azactam Objective - Vital Signs/Intake and Output Vital Signs (last 24 hours): Temp Pulse Resp BP Pulse Ox 97.9 F 63 20 114/76 97 06/28/18 17:00 06/28/18 17:00 06/28/18 17:00 06/28/18 17:00 06/28/18 17:00 Intake and Output: 06/28/18 06/28/18 06:59 18:59 Intake Total 1140 1050 Output Total 1350 600 Balance -210 450 - Medications Medications: Current Medications Alprazolam (Xanax) 1 mg PO BID PRN PRN Reason: Anxiety Last Admin: 06/28/18 09:37 Dose: 1 mg Dicyclomine HCl (Bentyl) 10 mg PO Q6 [facility] Last Admin: 06/28/18 11:10 Dose: Not Given Docusate Sodium (Colace) 100 mg PO BID [facility] Last Admin: 06/28/18 09:34 Dose: Not Given Enoxaparin Sodium (Lovenox) 40 mg SC DAILY [facility] Last Admin: 06/28/18 09:34 Dose: Not Given Famotidine (Pepcid) 20 mg PO BID [facility] Last Admin: 06/28/18 09:35 Dose: Not Given Hydroxyzine HCl (Atarax) 50 mg PO Q8 PRN PRN Reason: Allergy symptoms Last Admin: 06/27/18 17:19 Dose: 50 mg Aztreonam 1 gm/ Sodium (Chloride) 100 mls @ 200 mls/hr IVPB Q8H [facility]; Protocol Last Admin: 06/28/18 09:42 Dose: 200 mls/hr Lactated Ringer's (Lactated Ringer's) 1,000 mls @ 100 mls/hr IV .Q10H [facility] Last Admin: 06/28/18 13:56 Dose: Not Given Loratadine (Claritin) 10 mg PO DAILY [facility] Last Admin: 06/28/18 09:34 Dose: Not Given Morphine Sulfate (Morphine) 5 mg IVP Q6 [facility] Last Admin: 06/28/18 11:16 Dose: 5 mg Ondansetron HCl (Zofran Inj) 4 mg IVP Q6H PRN PRN Reason: GI distress Last Admin: 06/26/18 11:25 Dose: 4 mg Oxycodone/Acetaminophen (Percocet 5/325 Mg Tab) 2 tab PO Q4H PRN PRN Reason: Pain, moderate (4-7) Stop: 06/30/18 16:55 Last Admin: 06/28/18 09:19 Dose: 2 tab Pantoprazole Sodium (Protonix Ec Tab) 40 mg PO DAILY [facility] Last Admin: 06/28/18 09:35 Dose: Not Given Saccharomyces Boulardii (Florastor) 250 mg PO BID [facility] Last Admin: 06/28/18 11:10 Dose: Not Given Sodium Hypochlorite (Dakins Solution 0.25%) 10 ml TOP BID [facility] Last Admin: 06/28/18 17:19 Dose: Not Given - Labs Labs: 06/28/18 06:42 06/28/18 06:42 PT 11.5 SECONDS (9.7-12.2) 06/17/18 13:52 INR 1.1 06/17/18 13:52 APTT 34 SECONDS (21-34) 06/17/18 13:52 - Constitutional Appears: Non-toxic, Chronically Ill - Head Exam Head Exam: NORMOCEPHALIC - Eye Exam Eye Exam: PERRL - ENT Exam ENT Exam: Mucous Membranes Dry - Neck Exam Neck Exam: absent: Lymphadenopathy - Respiratory Exam Respiratory Exam: Decreased Breath Sounds - Cardiovascular Exam Cardiovascular Exam: REGULAR RHYTHM - GI/Abdominal Exam GI & Abdominal Exam: Distended Assessment and Plan (1) Abscess Status: Acute (2) Abscess of groin, left Status: Acute (3) Abscess of groin, right Status: Acute - Assessment and Plan (Free Text) Assessment: jennifer childs
[2018-06-28] MEDS: Vancomycin 1 gm/NS 200 ml 1 GM/200 ML BAG IVPB SCH (18:27)
[2018-06-29] MEDS: Aztreonam 1 GM in Sodium Chloride 0.9% 100 ML IVPB SCH ×3 (02:45→17:56)
[2018-06-29] MEDS: Oxycodone/Acetaminophen 5/325 mg Tab PO PRN ×3 (02:46→20:07)
[2018-06-29] MEDS: Morphine 4 MG/ML VIAL IVP SCH ×4 (06:08→23:44)
[2018-06-29] MEDS: Vancomycin 1 gm/NS 200 ml 1 GM/200 ML BAG IVPB SCH ×2 (06:11→20:00)
[2018-06-29] MEDS: Lactated Ringer's 1,000 ML IV SCH ×2 (07:00→21:31)
[2018-06-29 08:08] LABS: ALB/GLOB RATIO 0.9 (1.0-2.1); ALBUMIN 2.9 g/dL (3.5-5.0); ALT/SGPT 29 U/L (9-52); AST/SGOT 20 U/L (14-36); BLOOD UREA NITROGEN 9 mg/dL (7-17); CALCIUM 8.4 mg/dl (8.6-10.4); GFR NON-AFRICAN AMERICAN > 60
[2018-06-29 08:35] LABS: BASO % 0.4 % (0.0-2.0); EOS # 0.2 K/uL (0.0-0.7); EOS % 3.2 % (0.0-4.0); HEMOGLOBIN 7.9 g/dL (11.0-16.0); LYMPH # 2.3 K/uL (1.0-4.3); LYMPH % 30.4 % (20.0-40.0); MEAN CELL VOLUME 88.4 fL (81.0-99.0); MEAN CORPUSCULAR HEMOGLOBIN 30.1 pg (27.0-31.0); MEAN PLATELET VOLUME 7.6 fL (7.2-11.7); MONO # 0.6 K/uL (0.0-0.8); MONO % 7.9 % (0.0-10.0); NEUT # 4.4 K/uL (1.8-7.0); NEUT % 58.1 % (50.0-75.0); RBC 2.64 Mil/uL (3.80-5.20); RED CELL DISTRIBUTION WIDTH 14.9 % (11.5-14.5); WHITE BLOOD COUNT 7.6 K/uL (4.8-10.8)
[2018-06-29] MEDS: Enoxaparin 40 mg Syringe SC SCH (09:42)
[2018-06-29] MEDS: Saccharomyces Boulardi 250 mg Cap PO SCH ×2 (09:42→21:30)
[2018-06-29] MEDS: Pantoprazole 40 mg EC Tab PO SCH (09:42)
[2018-06-29] MEDS: Dakin's Topical 0.25%-Half Strength (480 ml) TOP SCH ×2 (13:55→19:58)
[2018-06-29] MEDS: Magnesium Hydroxide Susp 30 ml UD PO PRN (15:57)
[2018-06-29] MEDS ORDERED: Lidocaine 2% Jelly (30 ml) TOP PRN (16:11)
[2018-06-29] MEDS ORDERED: Bisacodyl 5mg EC Tab PO ONE (19:33)
[2018-06-30] MEDS: Magnesium Hydroxide Susp 30 ml UD PO PRN ×2 (00:09→14:57)
[2018-06-30] MEDS: Aztreonam 1 GM in Sodium Chloride 0.9% 100 ML IVPB SCH ×3 (01:17→18:06)
[2018-06-30] MEDS: Oxycodone/Acetaminophen 5/325 mg Tab PO PRN ×4 (01:18→22:59)
[2018-06-30] MEDS: Lactated Ringer's 1,000 ML IV SCH ×3 (01:51→12:14)
[2018-06-30] MEDS: Vancomycin 1 gm/NS 200 ml 1 GM/200 ML BAG IVPB SCH ×2 (05:59→18:19)
[2018-06-30] MEDS: Morphine 4 MG/ML VIAL IVP SCH ×4 (06:00→23:52)
[2018-06-30] MEDS: Saccharomyces Boulardi 250 mg Cap PO SCH ×2 (09:49→18:08)
[2018-06-30] MEDS: Pantoprazole 40 mg EC Tab PO SCH (09:50)
[2018-06-30] MEDS: Enoxaparin 40 mg Syringe SC SCH (09:51)
[2018-06-30] MEDS: Dakin's Topical 0.25%-Half Strength (480 ml) TOP SCH ×2 (12:26→18:09)
--- NOTE | 2018-06-30 16:10 | CP.PCM.PN ---
Subjective - Date & Time of Evaluation Date of Evaluation: 06/30/18 Time of Evaluation: 08:00 - Subjective Subjective: afeb nad concern for perirectal wound ? stitch failure Objective - Vital Signs/Intake and Output Vital Signs (last 24 hours): Temp Pulse Resp BP Pulse Ox 97.3 F L 78 20 112/72 98 06/30/18 08:34 06/30/18 08:34 06/30/18 08:34 06/30/18 08:34 06/30/18 08:34 Intake and Output: 06/30/18 06/30/18 06:59 18:59 Output Total 1000 Balance -1000 - Medications Medications: Current Medications Alprazolam (Xanax) 1 mg PO BID PRN PRN Reason: Anxiety Last Admin: 06/29/18 21:31 Dose: 1 mg Dicyclomine HCl (Bentyl) 10 mg PO Q6 [facility] Last Admin: 06/30/18 12:22 Dose: 10 mg Docusate Sodium (Colace) 100 mg PO BID [facility] Last Admin: 06/30/18 09:50 Dose: 100 mg Enoxaparin Sodium (Lovenox) 40 mg SC DAILY [facility] Last Admin: 06/30/18 09:51 Dose: 40 mg Famotidine (Pepcid) 20 mg PO BID [facility] Last Admin: 06/30/18 09:50 Dose: 20 mg Hydroxyzine HCl (Atarax) 50 mg PO Q8 PRN PRN Reason: Allergy symptoms Last Admin: 06/30/18 12:54 Dose: 50 mg Aztreonam 1 gm/ Sodium (Chloride) 100 mls @ 200 mls/hr IVPB Q8H [facility]; Protocol Last Admin: 06/30/18 09:51 Dose: 200 mls/hr Vancomycin/Sodium Chloride (Vancomycin 1 Gm/Ns 200 Ml) 1 gm in 200 mls @ 166.6 mls/hr IVPB Q12H [facility]; Protocol Stop: 07/03/18 19:01 Last Admin: 06/30/18 05:59 Dose: 166.6 mls/hr Lidocaine HCl (Xylocaine 2%) 0 ea TOP Q6 PRN PRN Reason: pain Loratadine (Claritin) 10 mg PO DAILY [facility] Last Admin: 06/30/18 09:50 Dose: 10 mg Magnesium Hydroxide (Milk Of Magnesia) 30 ml PO Q6 PRN PRN Reason: Constipation Last Admin: 06/30/18 14:57 Dose: 30 ml Morphine Sulfate (Morphine) 5 mg IVP Q6 [facility] Last Admin: 06/30/18 12:11 Dose: 5 mg Ondansetron HCl (Zofran Inj) 4 mg IVP Q6H PRN PRN Reason: GI distress Last Admin: 06/26/18 11:25 Dose: 4 mg Oxycodone/Acetaminophen (Percocet 5/325 Mg Tab) 2 tab PO Q4H PRN PRN Reason: Pain, moderate (4-7) Stop: 07/03/18 16:55 Pantoprazole Sodium (Protonix Ec Tab) 40 mg PO DAILY [facility] Last Admin: 06/30/18 09:50 Dose: 40 mg Saccharomyces Boulardii (Florastor) 250 mg PO BID [facility] Last Admin: 06/30/18 09:49 Dose: 250 mg Sodium Hypochlorite (Dakins Solution 0.25%) 10 ml TOP BID [facility] Last Admin: 06/30/18 12:26 Dose: 1 applic - Labs Labs: 06/29/18 07:27 06/29/18 07:27 PT 11.5 SECONDS (9.7-12.2) 06/17/18 13:52 INR 1.1 06/17/18 13:52 APTT 34 SECONDS (21-34) 06/17/18 13:52 - Constitutional Appears: Non-toxic, Chronically Ill - Head Exam Head Exam: NORMOCEPHALIC - Eye Exam Eye Exam: PERRL - ENT Exam ENT Exam: Mucous Membranes Dry - Neck Exam Neck Exam: absent: Lymphadenopathy - Respiratory Exam Respiratory Exam: Decreased Breath Sounds - Cardiovascular Exam Cardiovascular Exam: REGULAR RHYTHM - GI/Abdominal Exam GI & Abdominal Exam: Distended, Soft - Rectal Exam Rectal Exam: Deferred - Exam Exam: NORMAL INSPECTION Assessment and Plan (1) Abscess Status: Acute (2) Abscess of groin, left Status: Acute (3) Abscess of groin, right Status: Acute - Assessment and Plan (Free Text) Assessment: iv rx renewed surgical follow up ordered
[2018-07-01] MEDS: Aztreonam 1 GM in Sodium Chloride 0.9% 100 ML IVPB SCH ×3 (02:05→18:00)
[2018-07-01] MEDS: Oxycodone/Acetaminophen 5/325 mg Tab PO PRN ×3 (03:12→21:22)
[2018-07-01] MEDS: Morphine 4 MG/ML VIAL IVP SCH ×3 (05:33→19:51)
--- NOTE | 2018-07-01 07:16 | CP.PCM.PN ---
Subjective - Date & Time of Evaluation Date of Evaluation: 07/01/18 Time of Evaluation: 07:00 - Subjective Subjective: PGY2- Progress Note for Dr. Diehl Patient seen and examined at bedside and in no acute distress. Patient's constipation has resolved. Patient has pain at the site of her incisions/ wounds. Patient denies any headache, chest pain, shortness of breath, abdominal pain, nausea, vomiting. Objective - Vital Signs/Intake and Output Vital Signs (last 24 hours): Temp Pulse Resp BP Pulse Ox 98.9 F 89 20 91/51 L 98 07/01/18 00:00 07/01/18 00:00 07/01/18 00:00 07/01/18 00:00 07/01/18 00:00 Intake and Output: 07/01/18 07/01/18 06:59 18:59 Intake Total 900 Output Total 1800 Balance -900 - Medications Medications: Current Medications Alprazolam (Xanax) 1 mg PO BID PRN PRN Reason: Anxiety Last Admin: 06/30/18 21:22 Dose: 1 mg Dicyclomine HCl (Bentyl) 10 mg PO Q6 [facility] Last Admin: 07/01/18 05:33 Dose: 10 mg Docusate Sodium (Colace) 100 mg PO BID [facility] Last Admin: 06/30/18 18:07 Dose: 100 mg Enoxaparin Sodium (Lovenox) 40 mg SC DAILY [facility] Last Admin: 06/30/18 09:51 Dose: 40 mg Famotidine (Pepcid) 20 mg PO BID [facility] Last Admin: 06/30/18 18:07 Dose: 20 mg Hydroxyzine HCl (Atarax) 50 mg PO Q8 PRN PRN Reason: Allergy symptoms Last Admin: 06/30/18 23:00 Dose: 50 mg Aztreonam 1 gm/ Sodium (Chloride) 100 mls @ 200 mls/hr IVPB Q8H [facility]; Protocol Last Admin: 07/01/18 02:05 Dose: 200 mls/hr Vancomycin/Sodium Chloride (Vancomycin 1 Gm/Ns 200 Ml) 1 gm in 200 mls @ 166.6 mls/hr IVPB Q12H [facility]; Protocol Stop: 07/03/18 19:01 Last Admin: 06/30/18 18:19 Dose: 166.6 mls/hr Lidocaine HCl (Xylocaine 2%) 0 ea TOP Q6 PRN PRN Reason: pain Loratadine (Claritin) 10 mg PO DAILY [facility] Last Admin: 06/30/18 09:50 Dose: 10 mg Magnesium Hydroxide (Milk Of Magnesia) 30 ml PO Q6 PRN PRN Reason: Constipation Last Admin: 06/30/18 14:57 Dose: 30 ml Morphine Sulfate (Morphine) 5 mg IVP Q6 [facility] Last Admin: 07/01/18 05:33 Dose: 5 mg Ondansetron HCl (Zofran Inj) 4 mg IVP Q6H PRN PRN Reason: GI distress Last Admin: 06/26/18 11:25 Dose: 4 mg Oxycodone/Acetaminophen (Percocet 5/325 Mg Tab) 2 tab PO Q4H PRN PRN Reason: Pain, moderate (4-7) Stop: 07/03/18 16:55 Last Admin: 07/01/18 03:12 Dose: 2 tab Pantoprazole Sodium (Protonix Ec Tab) 40 mg PO DAILY [facility] Last Admin: 06/30/18 09:50 Dose: 40 mg Saccharomyces Boulardii (Florastor) 250 mg PO BID [facility] Last Admin: 06/30/18 18:08 Dose: 250 mg Sodium Hypochlorite (Dakins Solution 0.25%) 10 ml TOP BID [facility] Last Admin: 06/30/18 18:09 Dose: Not Given - Labs Labs: 06/29/18 07:27 06/29/18 07:27 PT 11.5 SECONDS (9.7-12.2) 06/17/18 13:52 INR 1.1 06/17/18 13:52 APTT 34 SECONDS (21-34) 06/17/18 13:52 - Additional Findings Additional findings: - Constitutional Appears: Non-toxic, No Acute Distress - Head Exam Head Exam: ATRAUMATIC, NORMOCEPHALIC - Eye Exam Eye Exam: Normal appearance - ENT Exam ENT Exam: Mucous Membranes Moist - Neck Exam Neck Exam: Full ROM - Respiratory Exam Respiratory Exam: Clear to Ausculation Bilateral, NORMAL BREATHING PATTERN. absent: Accessory Muscle Use, Rales, Rhonchi, Wheezes, Respiratory Distress - Cardiovascular Exam Cardiovascular Exam: REGULAR RHYTHM, +S1 - GI/Abdominal Exam GI & Abdominal Exam: Soft. 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 Siddiqui: - Colace 100mg po bid - Percocet 2 tab po q4 prn - morphine 5mg IVP q6h prn severe pain - antibiotics per ID: Dr. Gastelum- Aztreonam 1 g q8h and Vanco 1g q12h - groin wound on previous admissions have grown Acinetobacter Baumannii, E. Coli, pseudomonas and Proteus Mirabilis Cx 05/29/18: pseudomonas and E. coli Cx 06/19/18: Proteus/Klebsiella Cx 06/20: Proteus/Klebsiella Sacral Abscess Cx 06/25: pending -Normal WBC, afebrile Infected Sacral Mass with Anal Fistula s/p excision repeat OR today for skin grafting -meds as above Chronic Diarrhea/ Constipation - Continue Home Bentyl 10mg po q6h - Colace and Milk of Magnesia Pruritus/Seasonal Allergies - Continue Home Atarax 50mg po q8 - Continue Home Claritin 10 mg po daily Anxiety - Continue Home Xanax 1mg po bid Prophylaxis - DVT: per Surgery: Lovenox 40mg SC daily - hold prior to surgery - Pepcid 20mg po BID - Florastor 250mg po bid - Zofran PRN nausea - PT All medical management as per Dr. Diehl
[2018-07-01] MEDS: Vancomycin 1 gm/NS 200 ml 1 GM/200 ML BAG IVPB SCH ×2 (07:59→19:59)
[2018-07-01 08:52] LABS: BASO % 0.7 % (0.0-2.0); EOS # 0.2 K/uL (0.0-0.7); EOS % 4.1 % (0.0-4.0); HEMOGLOBIN 7.8 g/dL (11.0-16.0); LYMPH # 2.3 K/uL (1.0-4.3); LYMPH % 38.8 % (20.0-40.0); MEAN CELL VOLUME 89.1 fL (81.0-99.0); MEAN CORPUSCULAR HEMOGLOBIN 29.9 pg (27.0-31.0); MEAN CORPUSCULAR HGB CONC 33.5 g/dL (33.0-37.0); MEAN PLATELET VOLUME 7.1 fL (7.2-11.7); MONO # 0.6 K/uL (0.0-0.8); MONO % 9.4 % (0.0-10.0); NEUT # 2.8 K/uL (1.8-7.0); RBC 2.62 Mil/uL (3.80-5.20)
[2018-07-01] MEDS: Magnesium Hydroxide Susp 30 ml UD PO PRN ×2 (09:00→21:25)
[2018-07-01] MEDS: Pantoprazole 40 mg EC Tab PO SCH (09:01)
[2018-07-01 09:12] LABS: ALT/SGPT 28 U/L (9-52); AST/SGOT 21 U/L (14-36); BLOOD UREA NITROGEN 7 mg/dL (7-17); CALCIUM 8.5 mg/dl (8.6-10.4); GFR NON-AFRICAN AMERICAN > 60
[2018-07-01] MEDS: Saccharomyces Boulardi 250 mg Cap PO SCH ×2 (09:34→21:26)
[2018-07-01] MEDS: Enoxaparin 40 mg Syringe SC SCH (09:34)
[2018-07-01] MEDS: Dakin's Topical 0.25%-Half Strength (480 ml) TOP SCH ×2 (13:09→22:42)
[2018-07-01] MEDS ORDERED: Propofol 10 mg/ml Inj (20 ML) ONE (17:11)
[2018-07-01] MEDS ORDERED: Midazolam 2 MG/2 ML VIAL ONE (17:11)
[2018-07-01 23:13] VITALS: RESP 20
[2018-07-02] MEDS: Morphine 4 MG/ML VIAL IVP SCH ×3 (00:45→11:54)
[2018-07-02] MEDS: Aztreonam 1 GM in Sodium Chloride 0.9% 100 ML IVPB SCH ×3 (01:00→17:20)
--- NOTE | 2018-07-02 04:44 | OP ---
PROCEDURE DATE: 07/01/2018 PREOPERATIVE DIAGNOSES: Large open wounds, abscess of bilateral groin and pelvis. POSTOPERATIVE DIAGNOSES: Large open wounds, abscess of bilateral groin and pelvis. PROCEDURES PERFORMED: Debridement and re-drainage of abscess, skin graft with Dermagraft placement, bilateral pelvic and groin wounds with rectal exam under anesthesia and pulse irrigation of the rectal wound. SURGEON: Nitish Siddiqui MD ANESTHESIA: General. BLOOD LOSS: 30 mL. POSTOPERATIVE CONDITION: Stable. INDICATIONS FOR SURGERY: This is a 37-year-old female, undergoing a final staged procedure. She is status post excision of large areas of infected tissue both groins leaving large open wound. They have contracted and granulated to the point where now she could have Dermagraft placed on each wound. She also has a history of rectal wound closure last week and had a fecal impaction and felt a tearing in her rectum. She will also undergo rectal exam under anesthesia to evaluate her previous repair. GROSS FINDINGS: The patient had a 12 x 5 cm wound in the right groin and a 11 x 4 cm wound in the left groin. The wounds were debrided, drained and Dermagraft placed over each. The rectal wound was found to be mostly intact, and we just cleansed and re-dressed. DESCRIPTION OF PROCEDURE: The patient was taken to the operating room. General anesthesia was administered. She was placed in a modified frog position. Bilateral groins, abdomen and thighs were prepped and draped. The wounds were again debrided. Any remaining collections were drained and cultured. Bleeding was controlled using the Bovie. Larger blood vessel in the left groin was repaired. The wounds were then pulse irrigated, and Dermagrafts were placed over each wound, stapled and placed using skin goldy. The wounds were then dressed sterilely in the usual fashion. The patient was placed in lithotomy. The rectal wound was then checked. The rectum was also checked for any further impacted stool and none was found. The rectal wound was then pulse irrigated with the saline and dressed sterilely. The patient tolerated the procedure well and returned to recovery room in stable condition. Nitish Siddiqui MD
[2018-07-02] MEDS: Vancomycin 1 gm/NS 200 ml 1 GM/200 ML BAG IVPB SCH (06:00)
[2018-07-02 07:26] LABS: BASO % 0.8 % (0.0-2.0); EOS # 0.2 K/uL (0.0-0.7); HEMOGLOBIN 7.8 g/dL (11.0-16.0); LYMPH % 33.1 % (20.0-40.0); MEAN CELL VOLUME 89.7 fL (81.0-99.0); MEAN CORPUSCULAR HEMOGLOBIN 29.9 pg (27.0-31.0); MEAN CORPUSCULAR HGB CONC 33.3 g/dL (33.0-37.0); MEAN PLATELET VOLUME 7.1 fL (7.2-11.7); MONO # 0.4 K/uL (0.0-0.8); MONO % 6.6 % (0.0-10.0); NEUT # 3.3 K/uL (1.8-7.0); NEUT % 55.5 % (50.0-75.0); RBC 2.61 Mil/uL (3.80-5.20); RED CELL DISTRIBUTION WIDTH 15.2 % (11.5-14.5)
[2018-07-02 07:48] LABS: ALBUMIN 2.9 g/dL (3.5-5.0); ALT/SGPT 33 U/L (9-52); AST/SGOT 31 U/L (14-36); BLOOD UREA NITROGEN 9 mg/dL (7-17); CALCIUM 8.6 mg/dl (8.6-10.4); GFR NON-AFRICAN AMERICAN > 60
--- NOTE | 2018-07-02 08:26 | CP.PCM.PN ---
Subjective - Date & Time of Evaluation Date of Evaluation: 07/02/18 Time of Evaluation: 08:22 - Subjective Subjective: Medicine Progress Note - Dr Diehl Service Patient seen and examined at bedside. Per nursing no acute events overnight. Patient states that pain is controlled, however narcotics are making her feel constipated. Last bowel movement was this morning. She is tolerating diet. Awaiting placement at rehab. Offers no other complaints at this time. Denies fevers, chills, headaches, dizziness, cp, palpitations, sob, abdominal pain, urinary symptoms. Objective - Vital Signs/Intake and Output Vital Signs (last 24 hours): Temp Pulse Resp BP Pulse Ox 98.3 F 90 20 102/65 100 07/02/18 08:08 07/02/18 08:08 07/02/18 08:08 07/02/18 08:08 07/02/18 08:08 Intake and Output: 07/02/18 07/02/18 06:59 18:59 Intake Total 1730 Output Total 2100 Balance -370 - Medications Medications: Current Medications Alprazolam (Xanax) 1 mg PO BID PRN PRN Reason: Anxiety Last Admin: 07/01/18 22:42 Dose: 1 mg Dicyclomine HCl (Bentyl) 10 mg PO Q6 [facility] Last Admin: 07/02/18 05:50 Dose: 10 mg Docusate Sodium (Colace) 100 mg PO BID [facility] Last Admin: 07/01/18 22:41 Dose: 100 mg Docusate Sodium (Colace) 100 mg PO BID [facility] Last Admin: 07/01/18 21:25 Dose: 100 mg Enoxaparin Sodium (Lovenox) 40 mg SC DAILY [facility] Last Admin: 07/01/18 09:34 Dose: Not Given Famotidine (Pepcid) 20 mg PO BID [facility] Last Admin: 07/01/18 21:25 Dose: 20 mg Hydroxyzine HCl (Atarax) 50 mg PO Q8 PRN PRN Reason: Allergy symptoms Last Admin: 07/02/18 06:00 Dose: 50 mg Aztreonam 1 gm/ Sodium (Chloride) 100 mls @ 200 mls/hr IVPB Q8H [facility]; Protocol Last Admin: 07/02/18 01:00 Dose: 200 mls/hr Vancomycin/Sodium Chloride (Vancomycin 1 Gm/Ns 200 Ml) 1 gm in 200 mls @ 166.6 mls/hr IVPB Q12H [facility]; Protocol Stop: 07/03/18 19:01 Last Admin: 07/02/18 06:00 Dose: 166.6 mls/hr Lidocaine HCl (Xylocaine 2%) 0 ea TOP Q6 PRN PRN Reason: pain Loratadine (Claritin) 10 mg PO DAILY [facility] Last Admin: 07/01/18 13:09 Dose: Not Given Magnesium Hydroxide (Milk Of Magnesia) 30 ml PO Q6 PRN PRN Reason: Constipation Last Admin: 07/01/18 21:25 Dose: 30 ml Morphine Sulfate (Morphine) 5 mg IVP Q6 [facility] Last Admin: 07/02/18 05:50 Dose: 5 mg Ondansetron HCl (Zofran Inj) 4 mg IVP Q6H PRN PRN Reason: GI distress Last Admin: 06/26/18 11:25 Dose: 4 mg Oxycodone/Acetaminophen (Percocet 5/325 Mg Tab) 2 tab PO Q4H PRN PRN Reason: Pain, moderate (4-7) Stop: 07/03/18 16:55 Last Admin: 07/01/18 21:22 Dose: 2 tab Pantoprazole Sodium (Protonix Ec Tab) 40 mg PO DAILY [facility] Last Admin: 07/01/18 09:01 Dose: 40 mg Saccharomyces Boulardii (Florastor) 250 mg PO BID [facility] Last Admin: 07/01/18 21:26 Dose: 250 mg Sodium Hypochlorite (Dakins Solution 0.25%) 10 ml TOP BID [facility] Last Admin: 07/01/18 22:42 Dose: Not Given - Labs Labs: 07/02/18 07:17 07/02/18 07:17 PT 11.5 SECONDS (9.7-12.2) 06/17/18 13:52 INR 1.1 06/17/18 13:52 APTT 34 SECONDS (21-34) 06/17/18 13:52 - Additional Findings Additional findings: - Constitutional Appears: Non-toxic, No Acute Distress - Head Exam Head Exam: ATRAUMATIC, NORMOCEPHALIC - Eye Exam Eye Exam: Normal appearance - ENT Exam ENT Exam: Mucous Membranes Moist - Neck Exam Neck Exam: Full ROM - Respiratory Exam Respiratory Exam: Clear to Ausculation Bilateral, NORMAL BREATHING PATTERN. absent: Accessory Muscle Use, Rales, Rhonchi, Wheezes, Respiratory Distress - Cardiovascular Exam Cardiovascular Exam: REGULAR RHYTHM, +S1 - GI/Abdominal Exam GI & Abdominal Exam: Soft. 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 Siddiqui: - Colace 100mg po bid - Percocet 2 tab po q4 prn - Morphine 5mg IVP q6h prn severe pain - Antibiotics per ID: Dr. Gastelum- Aztreonam 1 g q8h and Vanco 1g q12h -Groin wound on previous admissions have grown Acinetobacter Baumannii, E. Coli, pseudomonas and Proteus Mirabilis Cx 05/29/18: pseudomonas and E. coli Cx 06/19/18: Proteus/Klebsiella Cx 06/20: Proteus/Klebsiella Sacral Abscess Cx 06/25: pending -Normal WBC, afebrile Infected Sacral Mass with Anal Fistula -s/p excision -meds as above Chronic Diarrhea/ Constipation -Continue Home Bentyl 10mg po q6h -Colace and Milk of Magnesia Pruritus/Seasonal Allergies -Continue Home Atarax 50mg po q8 -Continue Home Claritin 10 mg po daily Anxiety - ontinue Home Xanax 1mg po bid Prophylaxis -DVT: per Surgery: Lovenox 40mg SC daily - hold prior to surgery -Pepcid 20mg po BID -Florastor 250mg po bid -Zofran PRN nausea -PT All medical management as per Dr. Fazal Peoples DO PGY-2
[2018-07-02] MEDS: Saccharomyces Boulardi 250 mg Cap PO SCH ×2 (09:17→17:16)
[2018-07-02] MEDS: Pantoprazole 40 mg EC Tab PO SCH (09:17)
[2018-07-02] MEDS: Enoxaparin 40 mg Syringe SC SCH (09:17)
[2018-07-02] MEDS: Oxycodone/Acetaminophen 5/325 mg Tab PO PRN ×2 (09:17→16:11)
--- NOTE | 2018-07-02 11:55 | CP.PCM.PN ---
Subjective - Date & Time of Evaluation Date of Evaluation: 07/02/18 Time of Evaluation: 08:00 - Subjective Subjective: afeb s/p perirectal abscess drainage / repair Objective - Vital Signs/Intake and Output Vital Signs (last 24 hours): Temp Pulse Resp BP Pulse Ox 98.3 F 90 20 102/65 100 07/02/18 08:08 07/02/18 08:08 07/02/18 08:08 07/02/18 08:08 07/02/18 08:08 Intake and Output: 07/02/18 07/02/18 06:59 18:59 Intake Total 1730 Output Total 2100 Balance -370 - Medications Medications: Current Medications Alprazolam (Xanax) 1 mg PO BID PRN PRN Reason: Anxiety Last Admin: 07/01/18 22:42 Dose: 1 mg Dicyclomine HCl (Bentyl) 10 mg PO Q6 [facility] Last Admin: 07/02/18 05:50 Dose: 10 mg Docusate Sodium (Colace) 100 mg PO BID [facility] Last Admin: 07/02/18 09:17 Dose: 100 mg Docusate Sodium (Colace) 100 mg PO BID [facility] Last Admin: 07/01/18 21:25 Dose: 100 mg Enoxaparin Sodium (Lovenox) 40 mg SC DAILY [facility] Last Admin: 07/02/18 09:17 Dose: 40 mg Famotidine (Pepcid) 20 mg PO BID [facility] Last Admin: 07/02/18 09:17 Dose: 20 mg Hydroxyzine HCl (Atarax) 50 mg PO Q8 PRN PRN Reason: Allergy symptoms Last Admin: 07/02/18 06:00 Dose: 50 mg Aztreonam 1 gm/ Sodium (Chloride) 100 mls @ 200 mls/hr IVPB Q8H [facility]; Protocol Last Admin: 07/02/18 09:56 Dose: 200 mls/hr Vancomycin/Sodium Chloride (Vancomycin 1 Gm/Ns 200 Ml) 1 gm in 200 mls @ 166.6 mls/hr IVPB Q12H [facility]; Protocol Stop: 07/03/18 19:01 Last Admin: 07/02/18 06:00 Dose: 166.6 mls/hr Lidocaine HCl (Xylocaine 2%) 0 ea TOP Q6 PRN PRN Reason: pain Loratadine (Claritin) 10 mg PO DAILY [facility] Last Admin: 07/02/18 09:17 Dose: 10 mg Magnesium Hydroxide (Milk Of Magnesia) 30 ml PO Q6 PRN PRN Reason: Constipation Last Admin: 07/01/18 21:25 Dose: 30 ml Morphine Sulfate (Morphine) 5 mg IVP Q6 [facility] Last Admin: 07/02/18 05:50 Dose: 5 mg Ondansetron HCl (Zofran Inj) 4 mg IVP Q6H PRN PRN Reason: GI distress Last Admin: 06/26/18 11:25 Dose: 4 mg Oxycodone/Acetaminophen (Percocet 5/325 Mg Tab) 2 tab PO Q4H PRN PRN Reason: Pain, moderate (4-7) Stop: 07/03/18 16:55 Last Admin: 07/02/18 09:17 Dose: 2 tab Pantoprazole Sodium (Protonix Ec Tab) 40 mg PO DAILY [facility] Last Admin: 07/02/18 09:17 Dose: 40 mg Saccharomyces Boulardii (Florastor) 250 mg PO BID [facility] Last Admin: 07/02/18 09:17 Dose: 250 mg Sodium Hypochlorite (Dakins Solution 0.25%) 10 ml TOP BID [facility] Last Admin: 07/01/18 22:42 Dose: Not Given - Labs Labs: 07/02/18 07:17 07/02/18 07:17 PT 11.5 SECONDS (9.7-12.2) 06/17/18 13:52 INR 1.1 06/17/18 13:52 APTT 34 SECONDS (21-34) 06/17/18 13:52 - Constitutional Appears: Non-toxic, Chronically Ill - Head Exam Head Exam: NORMOCEPHALIC - Eye Exam Eye Exam: PERRL - ENT Exam ENT Exam: Mucous Membranes Dry - Neck Exam Neck Exam: absent: Lymphadenopathy - Respiratory Exam Respiratory Exam: Decreased Breath Sounds - Cardiovascular Exam Cardiovascular Exam: REGULAR RHYTHM Assessment and Plan (1) Abscess Status: Acute (2) Abscess of groin, left Status: Acute (3) Abscess of groin, right Status: Acute
[2018-07-02 16:10] VITALS: BP 116/71; PULSE 82; TEMP 98.7; O2SAT 98
== END 2018-07-02 19:51 | DRG 570 ==
LOC: C.ER 11:57 → C.9S 14:10 → OBSVTOIN 16:38 → C.3T 17:55
PROVIDERS: ADMIT Surgery; ATTEND Surgery
PROC: 0WBN0ZZ Excision of Female Perineum, Open Approach (ICD-10-PCS; 2018-06-17)
PROC: 0J9C0ZZ Drainage of Pelvic Region Subcutaneous Tissue and Fascia, Open Approach (ICD-10-PCS; 2018-06-18)
PROC: 0JDB0ZZ Extraction of Perineum Subcutaneous Tissue and Fascia, Open Approach (ICD-10-PCS; 2018-06-19)
PROC: 0JDB0ZZ Extraction of Perineum Subcutaneous Tissue and Fascia, Open Approach (ICD-10-PCS; 2018-06-21)
PROC: 0JDB0ZZ Extraction of Perineum Subcutaneous Tissue and Fascia, Open Approach (ICD-10-PCS; 2018-06-23)
PROC: 0JB70ZZ Excision of Back Subcutaneous Tissue and Fascia, Open Approach (ICD-10-PCS; 2018-06-25)
PROC: 0D9P0ZZ Drainage of Rectum, Open Approach (ICD-10-PCS; 2018-06-25)
PROC: 02HV33Z Insertion of Infusion Device into Superior Vena Cava, Percutaneous Approach (ICD-10-PCS; principal; 2018-06-25 14:00)
PROC: 0D9P0ZZ Drainage of Rectum, Open Approach (ICD-10-PCS; 2018-06-26)
PROC: 0D9P0ZZ Drainage of Rectum, Open Approach (ICD-10-PCS; 2018-06-27)
PROC: 0JDB0ZZ Extraction of Perineum Subcutaneous Tissue and Fascia, Open Approach (ICD-10-PCS; 2018-06-27)
PROC: 0JDB0ZZ Extraction of Perineum Subcutaneous Tissue and Fascia, Open Approach (ICD-10-PCS; 2018-07-01)
PROC: 0JDB0ZZ Extraction of Perineum Subcutaneous Tissue and Fascia, Open Approach (ICD-10-PCS; 2018-07-01)
DX: L72.0 Epidermal cyst (principal); K68.19 Other retroperitoneal abscess; L02.214 Cutaneous abscess of groin; L02.31 Cutaneous abscess of buttock; K61.1 Rectal abscess; K59.03 Drug induced constipation; K60.3 Anal fistula; J45.909 Unspecified asthma, uncomplicated; F41.9 Anxiety disorder, unspecified; N73.9 Female pelvic inflammatory disease, unspecified; L73.2 Hidradenitis suppurativa; L29.9 Pruritus, unspecified; F17.210 Nicotine dependence, cigarettes, uncomplicated; K52.9 Noninfective gastroenteritis and colitis, unspecified

== ENCOUNTER 2018-08-01 14:04 | Inpatient (IN) | payer BC ==
[2018-08-01 14:13] VITALS: BMI 34.3
[2018-08-01] MEDS ORDERED: Aztreonam 1 GM in Sodium Chloride 0.9% 100 ML IVPB ONE (15:10)
--- NOTE | 2018-08-01 15:52 | C.PDOC ---
History Of Present Illness 37 y/o female presents to ED sent by PMD for evaluation of abscess to superior gluteal fold with worsening pain. Patient denies fever, chills, nausea, vomiting or any other complaints at this time. Time Seen by Provider: 08/01/18 14:49 Chief Complaint (Nursing): Abnormal Skin Integrity History Per: Patient History/Exam Limitations: no limitations Onset/Duration Of Symptoms: Days Current Symptoms Are (Timing): Still Present Past Medical History Reviewed: Historical Data, Nursing Documentation, Vital Signs Vital Signs: Last Vital Signs Temp 98.1 F 08/01/18 14:14 Pulse 99 H 08/01/18 14:14 Resp 18 08/01/18 14:14 BP 112/74 08/01/18 14:14 Pulse Ox 100 08/01/18 14:14 - Medical History PMH: Anxiety, Asthma, Gastritis, Gall Bladder Disease, Pneumonia ([id number]) Surgical History: Cholecystectomy, Endoscopy, Tonsillectomy, (Myomectomy) - [facility] Procedures DRAINAGE OF GENITALIA SKIN, EXTERNAL APPROACH (04/17/18) DRAINAGE OF LEFT INGUINAL REGION, OPEN APPROACH (04/17/18) DRAINAGE OF PELVIC SUBCU/FASCIA, OPEN APPROACH (06/17/18) DRAINAGE OF PERINEUM SKIN, EXTERNAL APPROACH (04/19/16) DRAINAGE OF RECTUM, OPEN APPROACH (06/17/18) DRAINAGE OF RETROPERITONEUM, OPEN APPROACH, DIAGNOSTIC (04/17/18) DRAINAGE OF RIGHT INGUINAL REGION, OPEN APPROACH (04/17/18) EXCISION OF BACK SUBCU/FASCIA, OPEN APPROACH (06/17/18) EXCISION OF FEMALE PERINEUM, OPEN APPROACH (06/17/18) EXCISION OF GENITALIA SKIN, EXTERNAL APPROACH (03/25/18) EXCISION OF LEFT UPPER LEG SKIN, EXTERNAL APPROACH (04/17/18) EXCISION OF PELVIC SUBCU/FASCIA, OPEN APPROACH (05/24/18) EXCISION OF RIGHT UPPER LEG SKIN, EXTERNAL APPROACH (04/17/18) EXCISION OF UTERUS, OPEN APPROACH (04/19/16) EXTRACTION OF GENITALIA SKIN, EXTERNAL APPROACH (04/28/18) EXTRACTION OF LEFT UPPER LEG SKIN, EXTERNAL APPROACH (04/17/18) EXTRACTION OF PELVIC SUBCU/FASCIA, OPEN APPROACH (05/24/18) EXTRACTION OF PERINEUM SUBCU/FASCIA, OPEN APPROACH (06/17/18) EXTRACTION OF RIGHT UPPER LEG SKIN, EXTERNAL APPROACH (04/17/18) INSERTION OF INFUSION DEV INTO SUP VENA CAVA, PERC APPROACH (06/17/18) REPLACE L UP LEG SKIN W AUTOL SUB, PART THICK, ASSISTANT ANALYST (04/17/18) REPLACE R UP LEG SKIN W AUTOL SUB, PART THICK, ASSISTANT ANALYST (04/17/18) TRANSFER ABDOMEN SKIN, EXTERNAL APPROACH (04/17/18) TRANSFER GENITALIA SKIN, EXTERNAL APPROACH (04/28/18) TRANSFER LEFT UPPER LEG SKIN, EXTERNAL APPROACH (04/17/18) TRANSFER RIGHT UPPER LEG SKIN, EXTERNAL APPROACH (04/17/18) Family History: States: No Known Family Hx - Social History Hx Tobacco Use: Yes Hx Alcohol Use: Yes Hx Substance Use: No - Immunization History Hx Tetanus Toxoid Vaccination: Yes Hx Influenza Vaccination: No Hx Pneumococcal Vaccination: No Review Of Systems Constitutional: Negative for: Fever, Chills Gastrointestinal: Negative for: Nausea, Vomiting Skin: Positive for: Other (abscess to superior gluteal fold). Negative for: Rash Physical Exam - Physical Exam Appears: Non-toxic, No Acute Distress Skin: Warm, Dry, No Rash Head: Atraumatic, Normacephalic Eye(s): bilateral: Normal Inspection Oral Mucosa: Moist Cardiovascular: Rhythm Regular Respiratory: Normal Breath Sounds, No Rales, No Rhonchi, No Wheezing Gastrointestinal/Abdominal: Soft, No Tenderness, No Guarding, No Rebound Rectal: Other (area of induration and tenderness to superior gluteal fold) Back: No CVA Tenderness Extremity: Normal ROM, Capillary Refill (<2 seconds), No Deformity Neurological/Psych: Oriented x3, Normal Speech, Normal Cognition ED Course And Treatment - Laboratory Results Result Diagrams: 08/01/18 16:06 08/01/18 16:06 O2 Sat by Pulse Oximetry: 100 (RA) Pulse Ox Interpretation: Normal Medical Decision Making Medical Decision Making: discussd with dr rush and catrachito. accepts. npo for or tommorow. Disposition - Disposition Disposition: HOSPITALIZED Disposition Time: 19:00 Condition: STABLE - Clinical Impression Clinical Impression: Abscess - Scribe Statement The provider has reviewed the documentation as recorded by the Odalisibradha Vazquez All medical record entries made by the Odalisibradha were at my direction and personally dictated by me. I have reviewed the chart and agree that the record accurately reflects my personal performance of the history, physical exam, medical decision making, and the department course for this patient. I have also personally directed, reviewed, and agree with the discharge instructions and disposition.
[2018-08-01 16:12] LABS: BASO % 0.5 % (0.0-2.0); EOS # 0.1 K/uL (0.0-0.7); EOS % 1.7 % (0.0-4.0); LYMPH % 31.8 % (20.0-40.0); MEAN CORPUSCULAR HEMOGLOBIN 29.5 pg (27.0-31.0); MEAN CORPUSCULAR HGB CONC 34.1 g/dL (33.0-37.0); MEAN PLATELET VOLUME 7.2 fL (7.2-11.7); MONO # 0.4 K/uL (0.0-0.8); MONO % 6.1 % (0.0-10.0); NEUT # 3.7 K/uL (1.8-7.0); NEUT % 59.9 % (50.0-75.0); RBC 3.05 Mil/uL (3.80-5.20); RED CELL DISTRIBUTION WIDTH 15.6 % (11.5-14.5); WHITE BLOOD COUNT 6.2 K/uL (4.8-10.8)
[2018-08-01] MEDS ORDERED: Vancomycin 1 GM 1 GM/250 ML BAG IVPB ONE (16:15)
[2018-08-01 16:18] LABS: HCG,QUALITATIVE URINE NEGATIVE (NEGATIVE)
[2018-08-01 16:20] LABS: MEAN CELL VOLUME 86.6 fL (81.0-99.0)
[2018-08-01 16:21] LABS: INR 1.1; PROTHROMBIN TIME 11.7 SECONDS (9.7-12.2)
[2018-08-01 16:23] LABS: SQUAMOUS EPITHIAL 1 /hpf (0-5); URINE BILIRUBIN NEGATIVE (NEGATIVE); URINE BLOOD NEGATIVE (NEGATIVE); URINE CLARITY Clear (Clear); URINE COLOR Yellow (YELLOW); URINE GLUCOSE (UA) NORMAL (Normal); URINE LEUKOCYTE ESTERASE NEG Leu/uL (Negative); URINE PROTEIN NEGATIVE (NEGATIVE); URINE UROBILINOGEN NORMAL mg/dL (0.2-1.0)
[2018-08-01 16:57] LABS: ALBUMIN 3.5 g/dL (3.5-5.0); ALT/SGPT 16 U/L (9-52); AST/SGOT 19 U/L (14-36); BLOOD UREA NITROGEN 11 mg/dL (7-17); CALCIUM 8.7 mg/dl (8.6-10.4); GFR NON-AFRICAN AMERICAN > 60
--- NOTE | 2018-08-02 09:35 | CP.PCM.PN ---
Subjective - Date & Time of Evaluation Date of Evaluation: 08/02/18 Time of Evaluation: 09:35 - Subjective Subjective: PGY2 Progress Note for Dr Diehl Patient is a 37 year old female with a PMH of recurrent hidradenitis suppurativa, gastritis, IBS and anxiety, who presented to the ED with complaints of recurrent intergluteal cleft pain due to recurrent abscesses. The patient reports the pain started 4 days ago and is similar to the pain she has expe rienced with previous episodes of hidradenitis suppuratva. She denies drainage, fevers, chills. She states she recently followed up with Dr. Siddiqui regarding her bilateral inguinal skin grafts. She called Dr. Siddiqui when the intergluteal cleft pain began and was told to come to the hospital. THe patient denies chest pain, palpitations, dyspnea, cough, nausea, vomiting, fevers, headaches, abdominal pain, dysuria, constipation, and diarrhea. PMHx: recurrent hidradenitis suppurativa, gastritis, IBS and anxiety SurgHx: Fibroids (2015), Breast reductions (2005), Tonsillectomy (1992), Cholecystectomy (1998) FamHx: denies SocHx: denies tobacco, alcohol, an drug use; works in a warehouse Allergies: Cipro (hives), Levaquin (hives), Dilaudid Medications: Bentyl Q6h, Ranitide 150mg qAM, Protonix 40mg daily, Xanax 1mg TID, Florastor 250mg PO BID Objective - Vital Signs/Intake and Output Vital Signs (last 24 hours): Temp Pulse Resp BP Pulse Ox 97.9 F 65 20 113/68 100 08/02/18 07:34 08/02/18 07:34 08/02/18 07:34 08/02/18 07:34 08/02/18 07:34 - Medications Medications: Current Medications Alprazolam (Xanax) 1 mg PO BID PRN PRN Reason: Anxiety Last Admin: 08/01/18 23:52 Dose: 1 mg Dicyclomine HCl (Bentyl) 10 mg PO Q6 ROGERIO Last Admin: 08/02/18 06:52 Dose: 10 mg Hydroxyzine HCl (Atarax) 50 mg PO Q8 PRN PRN Reason: Allergy symptoms Last Admin: 08/02/18 00:11 Dose: 50 mg Dextrose/Sodium Chloride (Dextrose 5%/0.45% Ns 1000 Ml) 1,000 mls @ 100 mls/hr IV .Q10H ROGERIO Doxycycline Hyclate 100 mg/ (Sodium Chloride) 100 mls @ 100 mls/hr IVPB Q12H ROGERIO; Protocol Vancomycin/Sodium Chloride (Vancomycin 1 Gm/Ns 200 Ml) 1 gm in 200 mls @ 133 mls/hr IVPB Q12H ROGERIO; Protocol Stop: 08/07/18 11:01 Influenza Virus Vaccine (Fluzone Quad [id number]) 60 mcg IM .ONCE ONE Stop: 08/04/18 10:01 Ketorolac Tromethamine (Toradol) 30 mg IVP Q6 PRN PRN Reason: Pain, moderate (4-7) Last Admin: 08/02/18 09:24 Dose: 30 mg Pantoprazole Sodium (Protonix Ec Tab) 20 mg PO DAILY R[facility]IO Pneumococcal Polyvalent Vaccine (Pneumovax 23 Vaccine) 0.5 ml IM .ONCE ONE Stop: 08/04/18 10:01 - Labs Labs: 08/01/18 16:06 08/01/18 16:06 PT 11.7 SECONDS (9.7-12.2) 08/01/18 16:06 INR 1.1 08/01/18 16:06 APTT 34 SECONDS (21-34) 08/01/18 16:06 - Constitutional Appears: No Acute Distress - Head Exam Head Exam: ATRAUMATIC, NORMAL INSPECTION - Eye Exam Eye Exam: EOMI, Normal appearance - ENT Exam ENT Exam: Mucous Membranes Moist - Respiratory Exam Respiratory Exam: Clear to Ausculation Bilateral, Respiratory Distress, NORMAL BREATHING PATTERN. absent: Rales, Rhonchi, Wheezes - Cardiovascular Exam Cardiovascular Exam: REGULAR RHYTHM, +S1, +S2 - GI/Abdominal Exam GI & Abdominal Exam: Soft, Normal Bowel Sounds. absent: Distended, Firm, Tenderness - Exam Additional comments: s/p skin graft of bilateral inguinal regions; healing well. Intergluteal cleft- erythematous, inflammed, warm to palpation, tenderness to palpation - Extremities Exam Extremities Exam: absent: Calf Tenderness, Pedal Edema, Tenderness - Neurological Exam Neurological Exam: Alert, Awake, Oriented x3 - Psychiatric Exam Psychiatric exam: Normal Affect, Normal Mood - Skin Skin Exam: Normal Color, Warm Assessment and Plan - Assessment and Plan (Free Text) Plan: 37 year old female with PMH of recurrent hidradenitis suppurativa, gastritis, IBS, and anxiety. Recurrent Hidradenitis Suppurativa of the groin/intergluteal cleft - Admitted for hidradenitis suppurativa of the intergluteal cleft bilaterally - Hx of multiple I&D's - General surgery consulted, Dr. Siddiqui; recs appreciated - ID consulted, Dr. Gastelum; recs appreciated - Groin wound on at last admission grew: Pseudomonas, E. coli, Proteus, and Klebsiella *Of note, on previous admissions, cultures have grown Acinetobacter Jane ii, E. Coli, Pseudomonas, Proteus Mirabilis - Medications: * Doxycycline 100mg IV Q12h (active since 08/02/18) * Toradol 30mg IV Q6 prn for moderate pain * Percocet 1 tab Q6h prn for severe pain *Scheduled for the OR with Dr. Siddiqui on 08/02/18; NPO after lunch. IBS - Chronic Diarrhea/ Constipation - Continue Home Bentyl 10mg po q6h Pruritus/Seasonal Allergies - Continue Home Atarax 50mg po q8 Anxiety - Continue Home Xanax 1mg po bid Prophylaxis - DVT: C/I- preop, scheduled for OR on 08/02/18. Will restart per surgery. - Pepcid 20mg po BID - Florastor 250mg po bid - PT All medical management as per Dr. Diehl
[2018-08-02] MEDS: Pantoprazole 20 mg EC Tab PO SCH (10:32)
[2018-08-02] MEDS: Dextrose 5%/0.45% NS 1,000 ML IV SCH ×3 (10:33→22:04)
[2018-08-02] MEDS ORDERED: Oxycodone/Acetaminophen 5/325 mg Tab PO PRN (11:11)
[2018-08-02] MEDS: Vancomycin 1 gm/NS 200 ml 1 GM/200 ML BAG IVPB SCH ×2 (12:04→22:02)
[2018-08-02] MEDS ORDERED: Midazolam 2 MG/2 ML VIAL ONE (17:27)
[2018-08-02] MEDS ORDERED: Succinylcholine Chloride 20 mg/ml Syr (5 ml) IV ONE (17:28)
[2018-08-02] MEDS ORDERED: Propofol 10 mg/ml Inj (20 ML) ONE (17:28)
[2018-08-02] MEDS ORDERED: Bupivacaine 0.25% 20 ML INJ IJ ONE (18:02)
[2018-08-02] MEDS ORDERED: DiphenhydrAMINE 50 mg/ml Inj IVP PRN (18:13)
[2018-08-02] MEDS: Saccharomyces Boulardi 250 mg Cap PO SCH (19:35)
[2018-08-02] MEDS: Morphine 4 MG/ML VIAL IV PRN (19:35)
--- NOTE | 2018-08-02 19:53 | CP.PCM.CON ---
History of Present Illness - History of Present Illness History of Present Illness: 37 y/o female presents to ED with complaints of painful swelling in buttock area found to have intergluteal abscess / ? fistula taken to OR Hx of multiple admissions - recently had groin wounds drained started on empiric IV rx - Medical History PMH: Anxiety, Asthma, Gastritis, Gall Bladder Disease, Pneumonia ([id number]) Surgical History: Cholecystectomy, Endoscopy, Tonsillectomy, (Myomectomy) - [facility] Procedures DRAINAGE OF LEFT INGUINAL REGION, OPEN APPROACH (01/07/18) DRAINAGE OF PERINEUM SKIN, EXTERNAL APPROACH (04/19/16) DRAINAGE OF RIGHT INGUINAL REGION, OPEN APPROACH (01/07/18) EXCISION OF UTERUS, OPEN APPROACH (04/19/16) Review of Systems - Review of Systems All systems: reviewed and no additional remarkable complaints except - Constitutional Constitutional: As Per HPI - EENT Eyes: absent: As Per HPI, Blind Spots, Blurred Vision, Change in Vision, Dec reased Night Vision, Diplopia, Discharge, Dry Eye, Exophthalmos, Floaters, Irritation, Itchy Eyes, Loss of Peripheral Vision, Pain, Photophobia, Requires Corrective Lenses, Sees Flashes, Spots in Vision, Tunnel Vision, Other Visual Disturbances, Loss of Vision, Other Ears: absent: As Per HPI, Decreased Hearing, Ear Discharge, Ear Pain, Tinnitus, Abnormal Hearing, Disequilibrium, Dizziness, Other Nose/Mouth/Throat: absent: As Per HPI, Epistaxis, Nasal Congestion, Nasal Discharge, Nasal Obstruction, Nasal Trauma, Nose Pain, Post Nasal Drip, Sinus Pain, Sinus Pressure, Bleeding Gums, Change in Voice, Dental Pain, Dry Mouth, Dysphagia, Halitosis, Hoarsness, Lip Swelling, Mouth Lesions, Mouth Pain, Odynophagia, Sore Throat, Throat Swelling, Tongue Swelling, Facial Pain, Neck Pain, Neck Mass, Other - Breasts Breasts: absent: As Per HPI, Change in Shape, Mass, Pain, Nipple Discharge, Nipple Inversion, Skin Changes, Swelling, Other - Cardiovascular Cardiovascular: absent: As Per HPI, Acrocyanosis, Chest Pain, Chest Pain at Rest, Chest Pain with Activity, Claudication, Diaphoresis, Dyspnea, Dyspnea on Exertion, Edema, Irregular Heart Rhythm, Pain Radiating to Arm/Neck/Jaw, Leg Edema, Leg Ulcers, Lightheadedness, Orthopnea, Palpitations, Paroxysmal Nocturnal Dyspnea, Pedal Edema, Radiating Pain, Rapid Heart Rate, Slow Heart Rate, Syncope, Other - Respiratory Respiratory: absent: As Per HPI, Cough, Dyspnea, Hemoptysis, Dyspnea on Exertion, Wheezing, Snoring, Stridor, Pain on Inspiration, Chest Congestion, Excessive Mucous Production, Change in Mucous Color, Pain with Coughing, Other - Gastrointestinal Gastrointestinal: absent: As Per HPI, Abdominal Pain, Belching, Bloating, Change in Bowel Habits, Change in Stool Character, Coffee Ground Emesis, Constipation, Cramping, Diarrhea, Dyspepsia, Dysphagia, Early Satiety, Excessive Flatus, Fecal Incontinence, Heartburn, Hematemesis, Hematochezia, Loose Stools, Melena, Nausea, Odynophagia, Temesmus, Vomiting, Other - Genitourinary Genitourinary: absent: As Per HPI, Change in Urinary Stream, Difficulty Urinating, Dysuria, Flank Pain, Hematuria, Pyuria, Nocturia, Urinary Incontinence, Urinary Frequency, Urinary Hesitance, Urinary Urgency, Voiding Freq/Small Amts, Freq UTI, Hx Renal/Bladder Calculi, Hx /Renal Surgery, Bladder Distension, Other - Reproductive: Female Reproductive:Female: absent: As Per HPI, Amenorrhea, Amenorrhea/ Control, Currently Menstual, Cycle <21 Days, Cycle >35 Days, Cycle Variable, Menses 1-7 Days, Menses >/= 8 Days, Menses Variable, Cycle > 4 Weeks Between, No Menses for 6 Months, Heavy Menses, Light Menses, Normal Menses, Spotting Between Cycles, S/P Hysterectomy, Menopausal, Post Menopausal, Premenarche, Abnormal Vaginal Bleeding, Dysmenorrhea, Dyspareunia, Genital Lesions, Genital Pruritis, Pelvic Pain, Prolapse Symptoms, Sexual Dysfunction, Vaginal Discharge, Vaginal Dryness, Vaginal Odor, Vaginal Pruritis, Other - Menstruation Menstruation: absent: As Per HPI, Amenorrhea, Amenorrhea/ Control, Currently Menstual, Cycle <21 Days, Cycle >35 Days, Cycle Variable, Menses 1-7 Days, Menses >/= 8 Days, Menses Variable, Cycle > 4 Weeks Between, No Menses for 6 Months, Heavy Menses, Light Menses, Normal Menses, Spotting Between Cycles, S/P Hysterectomy, Menopausal, Post Menopausal, Premenarche, Abnormal Vaginal Bleeding, Dysmenorrhea, Other - Musculoskeletal Musculoskeletal: absent: As Per HPI, Abnormal Gait, Arthralgias, Atrophy, Back Pain, Deformity, Joint Swelling, Limited Range of Motion, Loss of Height, Muscle Cramps, Muscle Weakness, Myalgias, Neck Pain, Numbness, Radiating Pain into Limb, Stiffness, Tingling, Other - Integumentary Integumentary: As Per HPI, Skin Pain, Wounds - Neurological Neurological: absent: As Per HPI, Abnormal Gait, Abnormal Hearing, Abnormal Movements, Abnormal Speech, Behavioral Changes, Burning Sensations, Confusion, Convulsions, Disequilibrium, Dizziness, Numbness, Focal Weakness, Frequent Falls , Headaches, Lack of Coordination, Loss of Vision, Memory Loss, Paresthesias, Radicular Pain, Restless Legs, Sensory Deficit, Syncope, Tingling, Tremor, Vertigo, Weakness, Other Visual Disturbances, Other - Psychiatric Psychiatric: absent: As Per HPI, Abnormal Sleep Pattern, Anhedonia, Anxiety, Auditory Hallucinations, Behavioral Changes, Change in Appetite, Change in Libido, Confusion, Depression, Difficulty Concentrating, Hallucinations, Homicidal Ideation, Hopelessness, Irritability, Memory Loss, Mood Swings, Panic Attacks, Paranoia, Suicidal Ideation, Visual Hallucinations, Tactile Hallucinations, Other - Endocrine Endocrine: absent: As Per HPI, Change in Body Appearance, Change in Libido, Cold Intolorance, Deepening of Voice, Excessive Sweating, Fatigue, Flushing, Heat Intolorance, Increase in Ring/Shoe/Hat Size, Palpitations, Polydipsia, Polyphagia, Polyuria, Other - Hematologic/Lymphatic Hematologic: absent: As Per HPI, Easy Bleeding, Easy Bruising, Lymphadenopathy, Other Past Patient History - Infectious Disease Hx of Infectious Diseases: None - Past Medical History & Family History Past Medical History?: Yes - Past Social History Smoking Status: Current Some Days Smoker - CARDIAC Hx Cardiac Disorders: No - PULMONARY Hx Asthma: Yes Hx Pneumonia: Yes (2016) - NEUROLOGICAL Hx Neurological Disorder: No - HEENT Hx HEENT Problems: No - RENAL Hx Chronic Kidney Disease: No - ENDOCRINE/METABOLIC Hx Endocrine Disorders: No - HEMATOLOGICAL/ONCOLOGICAL Hx Blood Disorders: No - INTEGUMENTARY Hx Dermatological Problems: Yes (SEE COMMENT) Other/Comment: HX: MASS RIGHT GROIN. Geovanny.Groins abscess - MUSCULOSKELETAL/RHEUMATOLOGICAL Hx Falls: No - GASTROINTESTINAL Hx Gall Bladder Disease: Yes Hx Gastritis: Yes - GENITOURINARY/GYNECOLOGICAL Hx Genitourinary Disorders: Yes (SEE COMMENT) Hx Reproductive Disorders: Yes Other/Comment: UTERINE FIBROIDS REMOVED - PSYCHIATRIC Hx Substance Use: No - SURGICAL HISTORY Hx Cholecystectomy: Yes Hx Tonsillectomy: Yes Other/Comment: Multiple I&Ds groins - ANESTHESIA Hx Anesthesia: Yes Hx Anesthesia Reactions: No Hx Malignant Hyperthermia: No Meds Allergies/Adverse Reactions: Allergies Allergy/AdvReac Type Severity Reaction Status Date / Time adhesive tape Allergy Severe RASH Verified 08/01/18 14:12 ciprofloxacin [From Cipro] Allergy Intermediate RASH Verified 08/01/18 14:12 ciprofloxacin HCl Allergy Intermediate RASH Verified 08/01/18 14:12 [From Cipro] hydromorphone HCl Allergy Intermediate RASH Verified 08/01/18 14:12 [From Dilaudid] Penicillins Allergy Intermediate RASH Verified 08/01/18 14:12 shrimp Allergy Intermediate RASH Verified 08/01/18 14:12 sulfamethoxazole Allergy Intermediate RASH Verified 08/01/18 14:12 [From Bactrim] trimethoprim [From Bactrim] Allergy Intermediate RASH Verified 08/01/18 14:12 levofloxacin [From Levaquin] Allergy ITCHING Verified 08/02/18 08:59 - Medications Medications: Current Medications Alprazolam (Xanax) 1 mg PO BID PRN PRN Reason: Anxiety Last Admin: 08/01/18 23:52 Dose: 1 mg Dicyclomine HCl (Bentyl) 10 mg PO Q6 ROGERIO Last Admin: 08/02/18 12:03 Dose: 10 mg Diphenhydramine HCl (Benadryl) 25 mg IVP Q6 PRN PRN Reason: Itching / Pruritus Stop: 08/02/18 20:14 Docusate Sodium (Colace) 100 mg PO BID ROGERIO Hydroxyzine HCl (Atarax) 50 mg PO Q8 PRN PRN Reason: Allergy symptoms Last Admin: 08/02/18 00:11 Dose: 50 mg Dextrose/Sodium Chloride (Dextrose 5%/0.45% Ns 1000 Ml) 1,000 mls @ 100 mls/hr IV .Q10H ROGERIO Last Admin: 08/02/18 10:33 Dose: 100 mls/hr Doxycycline Hyclate 100 mg/ (Sodium Chloride) 100 mls @ 100 mls/hr IVPB Q12H ROGERIO; Protocol Last Admin: 08/02/18 10:13 Dose: 100 mls/hr Vancomycin/Sodium Chloride (Vancomycin 1 Gm/Ns 200 Ml) 1 gm in 200 mls @ 133 mls/hr IVPB Q12H ROGERIO; Protocol Stop: 08/07/18 11:01 Last Admin: 08/02/18 12:04 Dose: 133 mls/hr Influenza Virus Vaccine (Fluzone Quad [id number]) 60 mcg IM .ONCE ONE Stop: 08/04/18 10:01 Ketorolac Tromethamine (Toradol) 30 mg IVP Q6 PRN PRN Reason: Pain, moderate (4-7) Last Admin: 08/02/18 09:24 Dose: 30 mg Morphine Sulfate (Morphine) 4 mg IV Q6 PRN PRN Reason: pain 8-10 Oxycodone/Acetaminophen (Percocet 5/325 Mg Tab) 1 tab PO Q6H PRN PRN Reason: Pain, severe (8-10) Stop: 08/05/18 11:12 Oxycodone/Acetaminophen (Percocet 5/325 Mg Tab) 2 tab PO Q4H PRN PRN Reason: pain 6-8 Stop: 08/05/18 18:35 Pantoprazole Sodium (Protonix Ec Tab) 20 mg PO DAILY [facility] Last Admin: 08/02/18 10:32 Dose: 20 mg Pneumococcal Polyvalent Vaccine (Pneumovax 23 Vaccine) 0.5 ml IM .ONCE ONE Stop: 08/04/18 10:01 Saccharomyces Boulardii (Florastor) 250 mg PO BID [facility] Physical Exam - Constitutional Appears: Chronically Ill - Head Exam Head Exam: ATRAUMATIC - Eye Exam Eye Exam: absent: Scleral icterus - ENT Exam ENT Exam: Mucous Membranes Dry - Neck Exam Neck exam: Negative for: Lymphadenopathy - Respiratory Exam Respiratory Exam: Decreased Breath Sounds - Cardiovascular Exam Cardiovascular Exam: REGULAR RHYTHM - GI/Abdominal Exam GI & Abdominal Exam: Diminished Bowel Sounds, Soft - Rectal Exam Rectal Exam: Deferred - Exam Exam: NORMAL INSPECTION - Extremities Exam Extremities exam: Negative for: pedal edema - Back Exam Back exam: absent: CVA tenderness (L), CVA tenderness (R) - Neurological Exam Neurological exam: Alert, CN II-XII Intact, Oriented x3, Reflexes Normal - Psychiatric Exam Psychiatric exam: Depressed - Skin Skin Exam: Dry Additional comments: wound in intergluteal area packed s/p drainage Results - Vital Signs Recent Vital Signs: Last Vital Signs Temp 98 F 08/02/18 18:12 Pulse 82 08/02/18 19:00 Resp 15 08/02/18 19:00 BP 130/73 08/02/18 19:00 Pulse Ox 100 08/02/18 19:00 - Labs Result Diagrams: 08/01/18 16:06 08/01/18 16:06 Assessment & Plan (1) Abscess Status: Acute (2) Cellulitis Status: Acute (3) Hidradenitis suppurativa Status: Acute - Assessment and Plan (Free Text) Assessment: cont iv antibiotics await cultures
[2018-08-02] MEDS: Aztreonam 1 GM in Sodium Chloride 0.9% 100 ML IVPB SCH (21:25)
[2018-08-03] MEDS: Morphine 4 MG/ML VIAL IV PRN ×4 (01:36→23:04)
[2018-08-03] MEDS: Aztreonam 1 GM in Sodium Chloride 0.9% 100 ML IVPB SCH ×3 (04:52→21:35)
--- NOTE | 2018-08-03 05:12 | OP ---
PROCEDURE DATE: 08/02/2018 PREOPERATIVE DIAGNOSIS: Infected sacral mass and abscess. 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 SURGEON: Nitish Siddiqui MD ANESTHESIA: General endotracheal. ESTIMATED BLOOD LOSS: 40 mL. POSTOPERATIVE CONDITION: Stable. INDICATIONS FOR SURGERY: This is a 37-year-old female, status post multiple procedures for infections to the groin and rectal areas. She underwent a wide and deep en bloc resection of infected skin, subcutaneous tissue, about a month ago, and this area has healed nicely and is nearly granulated and . However, she developed a new area of pain and swelling in the sacral area, and taken to the OR for drainage of an abscess and possible fistulotomy. GROSS FINDINGS: There was an infected circular mass in the area which was excised. A probe was then placed to the underlying abscess cavity, and it was noted to come posteriorly into the rectal consistent with good this area was not related to the previous fistula which she had drained which was more inferior and lateral. DESCRIPTION OF PROCEDURE: The patient was taken to the operating room, general anesthesia was administered. She was placed in the prone position with the buttocks taped open. General anesthesia had been administered. The rectal area was prepped and draped. Elliptical incision was made. The infected sacral mass was removed, and the underlying pus was drained, and a probe was placed into the rectum. The overlying tissue was divided with complex fistula noted and abscess into the retroperitoneum. This was drained and cultured. Bleeding rectal blood vessel was repaired. The wound was irrigated with copious amounts of saline solution. Partial tissue flap closure was performed. Central portion of wound was packed open with wet saline gauze. The patient tolerated the procedure well. Returned to recovery room in stable condition. Nitish Siddiqui MD
[2018-08-03] MEDS: Dextrose 5%/0.45% NS 1,000 ML IV SCH ×3 (07:11→19:47)
[2018-08-03] MEDS: Pantoprazole 20 mg EC Tab PO SCH (10:22)
[2018-08-03] MEDS: Saccharomyces Boulardi 250 mg Cap PO SCH ×2 (10:22→17:54)
[2018-08-03] MEDS: Vancomycin 1 gm/NS 200 ml 1 GM/200 ML BAG IVPB SCH ×2 (10:22→22:37)
[2018-08-03] MEDS: Magnesium Hydroxide Susp 30 ml UD PO PRN (17:54)
[2018-08-04] MEDS: Dextrose 5%/0.45% NS 1,000 ML IV SCH ×3 (00:45→21:39)
[2018-08-04] MEDS: Oxycodone/Acetaminophen 5/325 mg Tab PO PRN (02:35)
[2018-08-04] MEDS: Aztreonam 1 GM in Sodium Chloride 0.9% 100 ML IVPB SCH ×3 (05:00→20:33)
[2018-08-04] MEDS: Morphine 4 MG/ML VIAL IV PRN ×3 (05:00→17:20)
[2018-08-04] MEDS ORDERED: Influenza Vaccine 60 MCG/0.5 ML SYR (3 yr & up) IM ONE (10:00)
[2018-08-04] MEDS ORDERED: Pneumococcal 23-Valent Vaccine IM ONE (10:00)
[2018-08-04] MEDS: Pantoprazole 20 mg EC Tab PO SCH (10:20)
[2018-08-04] MEDS: Magnesium Hydroxide Susp 30 ml UD PO PRN (10:20)
[2018-08-04] MEDS: Saccharomyces Boulardi 250 mg Cap PO SCH ×2 (10:20→17:35)
[2018-08-04] MEDS: Vancomycin 1 gm/NS 200 ml 1 GM/200 ML BAG IVPB SCH ×2 (10:22→22:24)
--- NOTE | 2018-08-04 17:28 | CP.PCM.PN ---
Subjective - Date & Time of Evaluation Date of Evaluation: 08/04/18 Time of Evaluation: 09:00 - Subjective Subjective: OR cultures pending IV rx renewed Objective - Vital Signs/Intake and Output Vital Signs (last 24 hours): Temp Pulse Resp BP Pulse Ox 98.1 F 80 20 121/71 99 08/04/18 08:00 08/04/18 08:00 08/04/18 08:00 08/04/18 08:00 08/04/18 08:00 Intake and Output: 08/04/18 08/04/18 06:59 18:59 Intake Total 2880 1400 Output Total 400 Balance 2480 1400 - Medications Medications: Current Medications Alprazolam (Xanax) 1 mg PO BID PRN PRN Reason: Anxiety Last Admin: 08/04/18 13:49 Dose: 1 mg Dicyclomine HCl (Bentyl) 10 mg PO Q6 ROGERIO Last Admin: 08/04/18 11:13 Dose: 10 mg Docusate Sodium (Colace) 100 mg PO BID [facility] Last Admin: 08/04/18 10:20 Dose: 100 mg Hydroxyzine HCl (Atarax) 50 mg PO Q8 PRN PRN Reason: Allergy symptoms Last Admin: 08/03/18 21:40 Dose: 50 mg Dextrose/Sodium Chloride (Dextrose 5%/0.45% Ns 1000 Ml) 1,000 mls @ 100 mls/hr IV .Q10H [facility]OGERIO Last Admin: 08/04/18 11:16 Dose: Not Given Vancomycin/Sodium Chloride (Vancomycin 1 Gm/Ns 200 Ml) 1 gm in 200 mls @ 133 mls/hr IVPB Q12H ROGERIO; Protocol Stop: 08/07/18 11:01 Last Admin: 08/04/18 10:22 Dose: 133 mls/hr Aztreonam 1 gm/ Sodium (Chloride) 100 mls @ 100 mls/hr IVPB Q8H ROGERIO; Protocol Last Admin: 08/04/18 13:16 Dose: 100 mls/hr Magnesium Hydroxide (Milk Of Magnesia) 30 ml PO DAILY PRN PRN Reason: Constipation Last Admin: 08/04/18 10:20 Dose: 30 ml Morphine Sulfate (Morphine) 4 mg IV Q6 PRN PRN Reason: pain 8-10 Last Admin: 08/04/18 11:00 Dose: 4 mg Oxycodone/Acetaminophen (Percocet 5/325 Mg Tab) 1 tab PO Q6H PRN PRN Reason: Pain, severe (8-10) Stop: 08/05/18 11:12 Last Admin: 08/03/18 19:44 Dose: 1 tab Oxycodone/Acetaminophen (Percocet 5/325 Mg Tab) 2 tab PO Q4H PRN PRN Reason: pain 6-8 Stop: 08/05/18 18:35 Last Admin: 08/04/18 02:35 Dose: 2 tab Pantoprazole Sodium (Protonix Ec Tab) [address] [facility] Last Admin: 08/04/18 10:20 Dose: 20 mg Saccharomyces Boulardii (Florastor) [address] [facility] Last Admin: 08/04/18 10:20 Dose: 250 mg - Labs Labs: 08/01/18 16:06 08/01/18 16:06 PT 11.7 SECONDS (9.7-12.2) 08/01/18 16:06 INR 1.1 08/01/18 16:06 APTT 34 SECONDS (21-34) 08/01/18 16:06 - Constitutional Appears: Non-toxic, Chronically Ill - Head Exam Head Exam: NORMOCEPHALIC - Eye Exam Eye Exam: absent: Scleral icterus - ENT Exam ENT Exam: Mucous Membranes Dry - Neck Exam Neck Exam: absent: Lymphadenopathy - Respiratory Exam Respiratory Exam: Decreased Breath Sounds - Cardiovascular Exam Cardiovascular Exam: REGULAR RHYTHM - GI/Abdominal Exam GI & Abdominal Exam: Distended Assessment and Plan (1) Abscess Status: Acute (2) Cellulitis Status: Acute (3) Hidradenitis suppurativa Status: Acute
[2018-08-04] MEDS: Morphine 4 MG/ML VIAL IVP PRN (22:25)
[2018-08-05] MEDS: Morphine 4 MG/ML VIAL IVP PRN ×4 (02:30→21:36)
[2018-08-05] MEDS: Oxycodone/Acetaminophen 5/325 mg Tab PO PRN (04:10)
[2018-08-05] MEDS: Aztreonam 1 GM in Sodium Chloride 0.9% 100 ML IVPB SCH ×3 (04:50→21:33)
[2018-08-05] MEDS: Dextrose 5%/0.45% NS 1,000 ML IV SCH ×2 (06:00→22:11)
--- NOTE | 2018-08-05 07:56 | CP.PCM.PN ---
Subjective - Date & Time of Evaluation Date of Evaluation: 08/05/18 Time of Evaluation: 07:56 - Subjective Subjective: PGY2 Progress Note for Dr Diehl The patient was seen and examined at bedside. She reports having persistent pain in the gluteal region. She also states she was constipated yesterday and that it was painful to have a BM. She had a BM after she was given colace, milk of magnesia, and drank prune juice. Patient denies chest pain, palpitations, dyspnea, cough, nausea, vomiting, fevers, headaches, abdominal pain, dysuria. Objective - Vital Signs/Intake and Output Vital Signs (last 24 hours): Temp Pulse Resp BP Pulse Ox 98.6 F 100 H 20 116/57 L 99 08/05/18 06:45 08/05/18 00:00 08/05/18 00:00 08/05/18 00:00 08/05/18 00:00 Intake and Output: 08/05/18 08/05/18 06:59 18:59 Intake Total 1030 Output Total 1200 Balance -170 - Medications Medications: Current Medications Alprazolam (Xanax) 1 mg PO BID PRN PRN Reason: Anxiety Last Admin: 08/05/18 00:15 Dose: 1 mg Dicyclomine HCl (Bentyl) 10 mg PO Q6 [facility] Last Admin: 08/05/18 06:00 Dose: 10 mg Docusate Sodium (Colace) 100 mg PO BID [facility] Last Admin: 08/04/18 17:35 Dose: 100 mg Hydroxyzine HCl (Atarax) 50 mg PO Q8 PRN PRN Reason: Allergy symptoms Last Admin: 08/04/18 22:45 Dose: 50 mg Dextrose/Sodium Chloride (Dextrose 5%/0.45% Ns 1000 Ml) 1,000 mls @ 100 mls/hr IV .Q10H [facility] Last Admin: 08/05/18 06:00 Dose: 100 mls/hr Vancomycin/Sodium Chloride (Vancomycin 1 Gm/Ns 200 Ml) 1 gm in 200 mls @ 133 mls/hr IVPB Q12H [facility]; Protocol Stop: 08/07/18 11:01 Last Admin: 08/04/18 22:24 Dose: 133 mls/hr Aztreonam 1 gm/ Sodium (Chloride) 100 mls @ 100 mls/hr IVPB Q8H [facility]; Protocol Last Admin: 08/05/18 04:50 Dose: 100 mls/hr Magnesium Hydroxide (Milk Of Magnesia) 30 ml PO DAILY PRN PRN Reason: Constipation Last Admin: 08/04/18 10:20 Dose: 30 ml Morphine Sulfate (Morphine) 6 mg IVP Q4 PRN PRN Reason: Pain, severe (8-10) Last Admin: 08/05/18 07:10 Dose: 6 mg Oxycodone/Acetaminophen (Percocet 5/325 Mg Tab) 1 tab PO Q6H PRN PRN Reason: Pain, severe (8-10) Stop: 08/05/18 11:12 Last Admin: 08/03/18 19:44 Dose: 1 tab Oxycodone/Acetaminophen (Percocet 5/325 Mg Tab) 2 tab PO Q4H PRN PRN Reason: pain 6-8 Stop: 08/05/18 18:35 Last Admin: 08/05/18 04:10 Dose: 2 tab Pantoprazole Sodium (Protonix Ec Tab) 20 mg PO DAILY [facility] Last Admin: 08/04/18 10:20 Dose: 20 mg Saccharomyces Boulardii (Florastor) 250 mg PO BID [facility] Last Admin: 08/04/18 17:35 Dose: 250 mg - Labs Labs: 08/01/18 16:06 08/01/18 16:06 PT 11.7 SECONDS (9.7-12.2) 08/01/18 16:06 INR 1.1 08/01/18 16:06 APTT 34 SECONDS (21-34) 08/01/18 16:06 - Additional Findings Additional findings: - Constitutional Appears: No Acute Distress - Head Exam Head Exam: ATRAUMATIC, NORMAL INSPECTION - Eye Exam Eye Exam: EOMI, Normal appearance - ENT Exam ENT Exam: Mucous Membranes Moist - Respiratory Exam Respiratory Exam: Clear to Ausculation Bilateral, Respiratory Distress, NORMAL BREATHING PATTERN. absent: Rales, Rhonchi, Wheezes - Cardiovascular Exam Cardiovascular Exam: REGULAR RHYTHM, +S1, +S2 - GI/Abdominal Exam GI & Abdominal Exam: Soft, Normal Bowel Sounds. absent: Distended, Firm, Tenderness - Exam Additional comments: s/p skin graft of bilateral inguinal regions; healing well. Intergluteal cleft- erythematous, inflamed, warm to palpation, tenderness to palpation, packing present - Extremities Exam Extremities Exam: absent: Calf Tenderness, Pedal Edema, Tenderness - Neurological Exam Neurological Exam: Alert, Awake, Oriented x3 - Psychiatric Exam Psychiatric exam: Normal Affect, Normal Mood - Skin Skin Exam: Normal Color, Warm Assessment and Plan - Assessment and Plan (Free Text) Plan: 37 year old female with PMH of recurrent hidradenitis suppurativa, gastritis, IBS, and anxiety. Recurrent Hidradenitis Suppurativa of the groin/intergluteal cleft - Admitted for hidradenitis suppurativa of the intergluteal cleft bilaterally - s/p I&D on 08/02/[address] Siddiqui - Hx of multiple I&D's - General surgery consulted, Dr. Siddiqui; recs appreciated - ID consulted, Dr. Gastelum; recs appreciated - Groin wound on at last admission grew: Pseudomonas, E. coli, Proteus, and Klebsiella *Of note, on previous admissions, cultures have grown Acinetobacter Baumannii, E. Coli, Pseudomonas, Proteus Mirabilis - Medications: * Aztreoname 1gm IV Q8h (active since 08/02/18) * Vancomycin 1gm IV Q12h (active since 08/02/18) * Percocet 1 tab Q6h prn for moderate pain, 2 tabs Q4h prn for severe pain * Morphine 6mg IV Q4 prn *Scheduled for the OR with Dr. Siddiqui on 08/05/18 for I&D and packing. IBS - Chronic Diarrhea/ Constipation - Continue Home Bentyl 10mg po q6h - Milk of mag 30ml PO daily prn - Colace 100mg PO BID Pruritus/Seasonal Allergies - Continue Home Atarax 50mg po q8 Anxiety - Continue Home Xanax 1mg po bid Prophylaxis - DVT: C/I- preop. Will restart per surgery. - Protonix 20mg PO daily - Florastor 250mg po bid - PT All medical management as per Dr. Diehl
--- NOTE | 2018-08-05 09:43 | HP ---
HISTORY OF PRESENT ILLNESS: The patient is admitted to the hospital with a chief complaint of pain in the back. The patient . PHYSICAL EXAMINATION: GENERAL: The patient is a pleasant female, awake, alert, and oriented. VITAL SIGNS: Temperature 99.9. HEENT: Within normal limits. NECK: Supple. CHEST: Symmetrical. HEART: Regular. ABDOMEN: Soft. EXTREMITIES: No edema. ASSESSMENT AND PLAN: The patient suffers from pelvic abscess. Getting IV antibiotics. . Viviane Diehl MD
[2018-08-05] MEDS: Saccharomyces Boulardi 250 mg Cap PO SCH ×2 (10:08→18:30)
[2018-08-05] MEDS: Pantoprazole 20 mg EC Tab PO SCH (10:08)
[2018-08-05 11:37] LABS: BASO % 0.5 % (0.0-2.0); EOS # 0.2 K/uL (0.0-0.7); EOS % 2.3 % (0.0-4.0); HEMOGLOBIN 8.2 g/dL (11.0-16.0); LYMPH # 1.9 K/uL (1.0-4.3); LYMPH % 27.7 % (20.0-40.0); MEAN CELL VOLUME 86.3 fL (81.0-99.0); MEAN CORPUSCULAR HEMOGLOBIN 28.6 pg (27.0-31.0); MEAN CORPUSCULAR HGB CONC 33.1 g/dL (33.0-37.0); MEAN PLATELET VOLUME 7.3 fL (7.2-11.7); MONO # 0.5 K/uL (0.0-0.8); MONO % 7.4 % (0.0-10.0); NEUT # 4.3 K/uL (1.8-7.0); NEUT % 62.1 % (50.0-75.0); RBC 2.89 Mil/uL (3.80-5.20); RED CELL DISTRIBUTION WIDTH 15.4 % (11.5-14.5)
[2018-08-05 11:58] LABS: ALBUMIN 3.4 g/dL (3.5-5.0); ALT/SGPT 19 U/L (9-52); AST/SGOT 18 U/L (14-36); BLOOD UREA NITROGEN 9 mg/dL (7-17); CALCIUM 8.7 mg/dl (8.6-10.4); GFR NON-AFRICAN AMERICAN > 60
[2018-08-05] MEDS: Vancomycin 1 gm/NS 200 ml 1 GM/200 ML BAG IVPB SCH ×2 (12:56→22:11)
[2018-08-05] MEDS ORDERED: Lidocaine Hydrochloride 20 ML INJ ONE (15:50)
[2018-08-05] MEDS ORDERED: Midazolam 2 MG/2 ML VIAL ONE (16:04)
[2018-08-05] MEDS ORDERED: Propofol 10 mg/ml Inj (20 ML) ONE ×2 (16:04→16:49)
[2018-08-05] MEDS ORDERED: Vancomycin 1 gm/D5W 200 ml 1 GM/200 ML BAG IVPB ONE (16:12)
[2018-08-05] MEDS ORDERED: HYDROmorphone 0.5 mg/0.5 ml ISec IVP PRN (16:31)
[2018-08-05] MEDS ORDERED: Vitamins A & D Oint UD Foilpak TOP SCH (20:15)
[2018-08-06] MEDS: Morphine 4 MG/ML VIAL IVP PRN ×3 (01:44→21:08)
--- NOTE | 2018-08-06 02:42 | OP ---
PROCEDURE DATE: 08/05/2018 PREOPERATIVE DIAGNOSIS: Rectal and pelvic abscess with large open wound. POSTOPERATIVE DIAGNOSIS: Rectal and pelvic abscess with large open wound. PROCEDURES PERFORMED: Re-drainage of rectal and pelvic abscess, debridement and partial closure of large open wound. SURGEON: Nitish Siddiqui MD ANESTHESIA: General. BLOOD LOSS: 40 mL. POSTOPERATIVE CONDITION: Stable. 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 She is taken back today for change of packing under anesthesia. DESCRIPTION OF PROCEDURE: The patient was taken to the operating room, placed in the prone position. IV sedation was administered. The buttocks were taped open, and the packing was removed. The area was prepped and draped. It was then re-debrided and all pelvic collections were drained and cultured. Bleeding was controlled using the Bovie. A larger pelvic blood vessel was repaired. Partial tissue flap closure was performed at the periphery. Central portion of the wound was packed open with saline gauze after the wound was sterilely pulse irrigated. The patient tolerated the procedure well and returned to recovery room in stable condition. Nitish Siddiqui MD
[2018-08-06] MEDS ORDERED: Oxycodone/Acetaminophen 5/325 mg Tab PO STA (04:35)
[2018-08-06] MEDS: Aztreonam 1 GM in Sodium Chloride 0.9% 100 ML IVPB SCH ×3 (04:57→21:07)
[2018-08-06] MEDS: Pantoprazole 20 mg EC Tab PO SCH (10:11)
[2018-08-06] MEDS: Saccharomyces Boulardi 250 mg Cap PO SCH ×2 (10:11→18:40)
[2018-08-06] MEDS: Vancomycin 1 gm/NS 200 ml 1 GM/200 ML BAG IVPB SCH ×2 (10:18→22:18)
--- NOTE | 2018-08-06 11:44 | CP.PCM.PN ---
Subjective - Date & Time of Evaluation Date of Evaluation: 08/06/18 Time of Evaluation: 11:45 - Subjective Subjective: Progress note. Attending: Dr. Diehl Pt seen and examined at bedside. No acute distress. No events overnight. Pt is scheduled to go for sx with Dr. Martinez today. She is reporting pain near the site of the abscess. No fevers, chills, vomiting. Objective - Vital Signs/Intake and Output Vital Signs (last 24 hours): Temp Pulse Resp BP Pulse Ox 97.9 F 110 H 20 103/69 97 08/06/18 08:00 08/06/18 08:00 08/06/18 08:00 08/06/18 08:00 08/06/18 08:00 Intake and Output: 08/06/18 08/06/18 06:59 18:59 Intake Total 800 Balance 800 - Medications Medications: Current Medications Alprazolam (Xanax) 1 mg PO BID PRN PRN Reason: Anxiety Last Admin: 08/06/18 00:00 Dose: 1 mg Dicyclomine HCl (Bentyl) 10 mg PO Q6 [facility] Last Admin: 08/06/18 05:07 Dose: 10 mg Docusate Sodium (Colace) 100 mg PO BID [facility] Last Admin: 08/06/18 10:11 Dose: 100 mg Hydroxyzine HCl (Atarax) 50 mg PO Q8 PRN PRN Reason: Allergy symptoms Last Admin: 08/06/18 00:00 Dose: 50 mg Vancomycin/Sodium Chloride (Vancomycin 1 Gm/Ns 200 Ml) 1 gm in 200 mls @ 133 mls/hr IVPB Q12H [facility]; Protocol Stop: 08/07/18 11:01 Last Admin: 08/06/18 10:18 Dose: 133 mls/hr Aztreonam 1 gm/ Sodium (Chloride) 100 mls @ 100 mls/hr IVPB Q8H [facility]; Protocol Last Admin: 08/06/18 04:57 Dose: 100 mls/hr Magnesium Hydroxide (Milk Of Magnesia) 30 ml PO DAILY PRN PRN Reason: Constipation Last Admin: 08/04/18 10:20 Dose: 30 ml Morphine Sulfate (Morphine) 6 mg IVP Q4 PRN PRN Reason: Pain, severe (8-10) Last Admin: 08/06/18 10:11 Dose: 6 mg Pantoprazole Sodium (Protonix Ec Tab) 20 mg PO DAILY [facility] Last Admin: 08/06/18 10:11 Dose: 20 mg Saccharomyces Boulardii (Florastor) 250 mg PO BID [facility] Last Admin: 08/06/18 10:11 Dose: 250 mg Vitamin A (Vitamin A & D Oint Ud Foilpak) 1 ea EXT Q8 PRN PRN Reason: dry skin - Labs Labs: 08/05/18 11:21 08/05/18 11:21 PT 11.7 SECONDS (9.7-12.2) 08/01/18 16:06 INR 1.1 08/01/18 16:06 APTT 34 SECONDS (21-34) 08/01/18 16:06 - Constitutional Appears: No Acute Distress - Head Exam Head Exam: ATRAUMATIC, NORMAL INSPECTION, NORMOCEPHALIC - Eye Exam Eye Exam: EOMI - ENT Exam ENT Exam: Mucous Membranes Moist - Neck Exam Neck Exam: Full ROM - Respiratory Exam Respiratory Exam: absent: Respiratory Distress - Cardiovascular Exam Cardiovascular Exam: +S1, +S2 - GI/Abdominal Exam GI & Abdominal Exam: Soft, Normal Bowel Sounds. absent: Tenderness - Exam Additional comments: s/p skin graft intergluteal cleft, tender to palpation, mild erythema - Extremities Exam Extremities Exam: Full ROM, Normal Inspection - Neurological Exam Neurological Exam: Alert, Awake, CN II-XII Intact, Oriented x3 - Psychiatric Exam Psychiatric exam: Flat Affect - Skin Skin Exam: Dry, Intact, Normal Color, Warm Assessment and Plan - Assessment and Plan (Free Text) Assessment: This is a 37 yo female with a past medical hx of recurrent hidradenitis suppurativa, gastritis, irritable bowel syndrome, and anxiety. Recurrent Hidradenitis Suppurativa of the groin/intergluteal cleft - Admitted for hidradenitis suppurativa of the intergluteal cleft bilaterally - s/p I&D on 08/02/[address] Siddiqui; plan for OR again today - Hx of multiple I&D's - General surgery consulted, Dr. Siddiqui; recs appreciated - ID consulted, Dr. Gastelum; recs appreciated - Groin wound on at last admission grew: Pseudomonas, E. coli, Proteus, and Klebsiella *Of note, on previous admissions, cultures have grown Acinetobacter Baumannii, E. Coli, Pseudomonas, Proteus Mirabilis - Medications: * Aztreoname 1gm IV Q8h (active since 08/02/18) * Vancomycin 1gm IV Q12h (active since 08/02/18) * Morphine 6mg IV Q4 prn IBS - Chronic Diarrhea/ Constipation - Continue Home Bentyl 10mg po q6h - Milk of mag 30ml PO daily prn - Colace 100mg PO BID Pruritus/Seasonal Allergies - Continue Home Atarax 50mg po q8 Anxiety - Continue Home Xanax 1mg po bid Prophylaxis - DVT: C/I- preop. Will restart per surgery. - Protonix 20mg PO daily - Florastor 250mg po bid - PT All medical management as per Dr. Diehl
[2018-08-06 11:46] LABS: BASO % 0.7 % (0.0-2.0); EOS # 0.2 K/uL (0.0-0.7); EOS % 3.8 % (0.0-4.0); HEMOGLOBIN 7.8 g/dL (11.0-16.0); LYMPH # 1.7 K/uL (1.0-4.3); LYMPH % 32.3 % (20.0-40.0); MEAN CELL VOLUME 86.3 fL (81.0-99.0); MEAN CORPUSCULAR HEMOGLOBIN 28.8 pg (27.0-31.0); MEAN CORPUSCULAR HGB CONC 33.3 g/dL (33.0-37.0); MEAN PLATELET VOLUME 7.4 fL (7.2-11.7); MONO # 0.4 K/uL (0.0-0.8); MONO % 7.9 % (0.0-10.0); NEUT # 2.9 K/uL (1.8-7.0); NEUT % 55.3 % (50.0-75.0); NRBC % 0.1 % (0.0-2.0); RBC 2.71 Mil/uL (3.80-5.20); RED CELL DISTRIBUTION WIDTH 15.1 % (11.5-14.5); WHITE BLOOD COUNT 5.3 K/uL (4.8-10.8)
[2018-08-06 12:04] LABS: ALB/GLOB RATIO 1.1 (1.0-2.1); ALBUMIN 3.3 g/dL (3.5-5.0); ALT/SGPT 18 U/L (9-52); AST/SGOT 19 U/L (14-36); BLOOD UREA NITROGEN 10 mg/dL (7-17); CALCIUM 8.5 mg/dl (8.6-10.4); GFR NON-AFRICAN AMERICAN > 60
[2018-08-06] MEDS: Vitamins A & D Oint UD Foilpak EXT PRN ×2 (12:46→21:15)
[2018-08-06] MEDS ORDERED: Propofol 10 mg/ml Inj (20 ML) ONE ×2 (17:04→17:23)
[2018-08-06] MEDS ORDERED: Midazolam 2 MG/2 ML VIAL ONE (17:04)
[2018-08-06] MEDS ORDERED: Phenylephrine 10 mg/ml Inj ONE (17:05)
--- NOTE | 2018-08-06 22:52 | OP ---
PROCEDURE DATE: 08/06/2018 PREOPERATIVE DIAGNOSIS: Rectal and pelvic abscess. POSTOPERATIVE DIAGNOSIS: Rectal and pelvic abscess. PROCEDURE PERFORMED: Re-drainage of rectal and pelvic abscess with debridement, pulse irrigation, change of packing and partial tissue flap closure. SURGEON: Nitish Siddiqui MD ANESTHESIA: General. BLOOD LOSS: 30 mL. POSTOPERATIVE CONDITION: Stable. INDICATIONS FOR SURGERY: This is a 37-year-old female who was again undergoing debridement. She has undergone an OR change of packing for large rectal and pelvic wound secondary to an extensive and complex perianal fistula. She was taken back to the operating room for staged wound care. DESCRIPTION OF PROCEDURE: The patient was taken to the operating room. IV sedation was administered. She was placed in a prone position. The packing was removed. The wound was vigorously debrided and irrigated with saline. Any remaining collections were drained and cultured including those into the pelvis. A peripheral blood vessel was noted to be bleeding and repaired with Prolene. Partial tissue flap closure was performed at the periphery utilizing counter incisions. Central portion of wound was packed open with wet saline gauze. The patient tolerated the procedure well and returned to recovery room in stable condition. Nitish Siddiqui MD
[2018-08-07] MEDS: Morphine 4 MG/ML VIAL IVP PRN ×3 (02:20→10:19)
[2018-08-07] MEDS: Aztreonam 1 GM in Sodium Chloride 0.9% 100 ML IVPB SCH ×3 (06:00→20:55)
[2018-08-07] MEDS: Saccharomyces Boulardi 250 mg Cap PO SCH ×2 (10:23→17:11)
[2018-08-07] MEDS: Pantoprazole 20 mg EC Tab PO SCH (10:23)
[2018-08-07] MEDS: Vancomycin 1 gm/NS 200 ml 1 GM/200 ML BAG IVPB SCH (11:13)
[2018-08-07 11:55] LABS: BASO % 0.5 % (0.0-2.0); EOS # 0.3 K/uL (0.0-0.7); EOS % 5.2 % (0.0-4.0); HEMOGLOBIN 8.1 g/dL (11.0-16.0); LYMPH # 1.9 K/uL (1.0-4.3); LYMPH % 35.6 % (20.0-40.0); MEAN CELL VOLUME 85.7 fL (81.0-99.0); MEAN CORPUSCULAR HEMOGLOBIN 29.6 pg (27.0-31.0); MEAN CORPUSCULAR HGB CONC 34.5 g/dL (33.0-37.0); MEAN PLATELET VOLUME 7.4 fL (7.2-11.7); MONO # 0.5 K/uL (0.0-0.8); MONO % 9.2 % (0.0-10.0); NEUT # 2.6 K/uL (1.8-7.0); NEUT % 49.5 % (50.0-75.0); NRBC % 0.1 % (0.0-2.0); RBC 2.75 Mil/uL (3.80-5.20); RED CELL DISTRIBUTION WIDTH 15.4 % (11.5-14.5); WHITE BLOOD COUNT 5.2 K/uL (4.8-10.8)
[2018-08-07 13:06] LABS: BLOOD UREA NITROGEN 10 mg/dL (7-17); GFR NON-AFRICAN AMERICAN > 60
[2018-08-07 13:07] LABS: CALCIUM 8.5 mg/dl (8.6-10.4)
[2018-08-07 13:08] LABS: ALBUMIN 3.3 g/dL (3.5-5.0); ALT/SGPT 15 U/L (9-52); AST/SGOT 19 U/L (14-36)
--- NOTE | 2018-08-07 15:19 | CP.PCM.PN ---
Subjective - Date & Time of Evaluation Date of Evaluation: 08/07/18 Time of Evaluation: 15:15 - Subjective Subjective: Progress note. Attending: Dr. Diehl. Pt seen and examined at bedside. No acute distress. Pt is reporting pain at site of surgery. No fevers, chills, vomiting, diarrhea. S/P rectal abscess sx with Dr. Siddiqui. Objective - Vital Signs/Intake and Output Vital Signs (last 24 hours): Temp Pulse Resp BP Pulse Ox 98.7 F 78 20 98/64 L 97 08/07/18 07:51 08/07/18 07:51 08/07/18 07:51 08/07/18 07:51 08/07/18 07:51 Intake and Output: 08/07/18 08/07/18 06:59 18:59 Intake Total 430 780 Balance 430 780 - Medications Medications: Current Medications Alprazolam (Xanax) 1 mg PO BID PRN PRN Reason: Anxiety Last Admin: 08/07/18 12:02 Dose: 1 mg Dicyclomine HCl (Bentyl) 10 mg PO Q6 [facility] Last Admin: 08/07/18 12:02 Dose: 10 mg Docusate Sodium (Colace) 100 mg PO BID [facility] Last Admin: 08/07/18 10:23 Dose: 100 mg Hydroxyzine HCl (Atarax) 50 mg PO Q8 PRN PRN Reason: Allergy symptoms Last Admin: 08/07/18 06:10 Dose: 50 mg Aztreonam 1 gm/ Sodium (Chloride) 100 mls @ 100 mls/hr IVPB Q8H [facility]; Protocol Last Admin: 08/07/18 13:42 Dose: 100 mls/hr Magnesium Hydroxide (Milk Of Magnesia) 30 ml PO DAILY PRN PRN Reason: Constipation Last Admin: 08/04/18 10:20 Dose: 30 ml Morphine Sulfate (Morphine) 2 mg IVP Q10M PRN PRN Reason: Pain, severe (8-10) Last Admin: 08/06/18 18:07 Dose: 2 mg Morphine Sulfate (Morphine) 6 mg IVP Q3 PRN PRN Reason: Pain, severe (8-10) Last Admin: 08/07/18 13:45 Dose: 6 mg Pantoprazole Sodium (Protonix Ec Tab) 20 mg PO DAILY [facility] Last Admin: 08/07/18 10:23 Dose: 20 mg Saccharomyces Boulardii (Florastor) 250 mg PO BID [facility] Last Admin: 08/07/18 10:23 Dose: 250 mg Vitamin A (Vitamin A & D Oint Ud Foilpak) 1 ea EXT Q8 PRN PRN Reason: dry skin Last Admin: 08/06/18 21:15 Dose: 1 ea - Labs Labs: 08/07/18 11:42 08/07/18 11:42 PT 11.7 SECONDS (9.7-12.2) 08/01/18 16:06 INR 1.1 08/01/18 16:06 APTT 34 SECONDS (21-34) 08/01/18 16:06 - Constitutional Appears: Non-toxic, No Acute Distress - Head Exam Head Exam: ATRAUMATIC, NORMAL INSPECTION, NORMOCEPHALIC - Eye Exam Eye Exam: EOMI - ENT Exam ENT Exam: Mucous Membranes Moist - Neck Exam Neck Exam: Full ROM, Normal Inspection - Respiratory Exam Respiratory Exam: absent: Respiratory Distress - Cardiovascular Exam Cardiovascular Exam: +S1, +S2 - GI/Abdominal Exam GI & Abdominal Exam: Soft, Normal Bowel Sounds. absent: Tenderness - Extremities Exam Extremities Exam: Full ROM, Normal Inspection - Neurological Exam Neurological Exam: Alert, Awake, Oriented x3 - Psychiatric Exam Psychiatric exam: Flat Affect - Skin Skin Exam: Dry, Intact, Normal Color, Warm Assessment and Plan - Assessment and Plan (Free Text) Assessment: This is a 37 yo female with a past medical hx of recurrent hidradenitis suppurativa, gastritis, irritable bowel syndrome, and anxiety. Recurrent Hidradenitis Suppurativa of the groin/intergluteal cleft - Admitted for hidradenitis suppurativa of the intergluteal cleft bilaterally - s/p I&D on 08/02/[address] Siddiqui -s/p sx with Dr. Siddiqui 08/06/2018 - Hx of multiple I&D's - General surgery consulted, Dr. Siddiqui; recs appreciated - ID consulted, Dr. Gastelum; recs appreciated - Groin wound on at last admission grew: Pseudomonas, E. coli, Proteus, and Klebsiella *Of note, on previous admissions, cultures have grown Acinetobacter Baumannii, E. Coli, Pseudomonas, Proteus Mirabilis - Medications: * Aztreoname 1gm IV Q8h (active since 08/02/18) * Vancomycin 1gm IV Q12h (active since 08/02/18) * Morphine 6mg IV Q4 prn>>> changing to q 3 prn IBS - Chronic Diarrhea/ Constipation - Continue Home Bentyl 10mg po q6h - Milk of mag 30ml PO daily prn - Colace 100mg PO BID Pruritus/Seasonal Allergies - Continue Home Atarax 50mg po q8 Anxiety - Continue Home Xanax 1mg po bid Prophylaxis - DVT: C/I- preop. Will restart per surgery. - Protonix 20mg PO daily - Florastor 250mg po bid - PT All medical management as per Dr. Diehl
[2018-08-07] MEDS: Vitamins A & D Oint UD Foilpak EXT PRN (20:56)
[2018-08-08] MEDS: Aztreonam 1 GM in Sodium Chloride 0.9% 100 ML IVPB SCH ×2 (05:30→13:12)
[2018-08-08] MEDS: Saccharomyces Boulardi 250 mg Cap PO SCH ×3 (10:49→18:13)
[2018-08-08] MEDS: Pantoprazole 20 mg EC Tab PO SCH ×2 (10:49→13:32)
[2018-08-08] MEDS ORDERED: Midazolam 2 MG/2 ML VIAL ONE (11:27)
[2018-08-08] MEDS ORDERED: Propofol 10 mg/ml Inj (20 ML) ONE ×2 (11:27→11:40)
[2018-08-08] MEDS: Magnesium Hydroxide Susp 30 ml UD PO PRN (13:46)
--- NOTE | 2018-08-08 15:48 | CP.PCM.PN ---
Subjective - Date & Time of Evaluation Date of Evaluation: 08/08/18 Time of Evaluation: 09:10 - Subjective Subjective: PGY2 Progress note for Dr. Diehl Patient was seen and examined at bedside. Patient reports having pain in her intergluteal cleft thats worse with movement and pressure. The patient denies chest pain, palpitations, dyspnea, cough, nausea, vomiting, fevers, headaches, muscle aches, dysuria, and diarrhea. Objective - Vital Signs/Intake and Output Vital Signs (last 24 hours): Temp Pulse Resp BP Pulse Ox 97.4 F L 71 12 108/70 96 08/08/18 13:00 08/08/18 13:00 08/08/18 13:00 08/08/18 13:00 08/08/18 13:00 Intake and Output: 08/08/18 08/08/18 06:59 18:59 Intake Total 1530 Balance 1530 - Medications Medications: Current Medications Alprazolam (Xanax) 1 mg PO BID PRN PRN Reason: Anxiety Last Admin: 08/07/18 12:02 Dose: 1 mg Dicyclomine HCl (Bentyl) 10 mg PO Q6 [facility] Last Admin: 08/08/18 13:12 Dose: 10 mg Docusate Sodium (Colace) 100 mg PO BID [facility] Last Admin: 08/08/18 13:32 Dose: 100 mg Hydroxyzine HCl (Atarax) 50 mg PO Q8 PRN PRN Reason: Allergy symptoms Last Admin: 08/07/18 21:50 Dose: 50 mg Aztreonam 1 gm/ Sodium (Chloride) 100 mls @ 100 mls/hr IVPB Q8H [facility]; Protocol Last Admin: 08/08/18 13:12 Dose: 100 mls/hr Magnesium Hydroxide (Milk Of Magnesia) 30 ml PO DAILY PRN PRN Reason: Constipation Last Admin: 08/08/18 13:46 Dose: 30 ml Morphine Sulfate (Morphine) 2 mg IVP Q10M PRN PRN Reason: Pain, severe (8-10) Last Admin: 08/06/18 18:07 Dose: 2 mg Morphine Sulfate (Morphine) 6 mg IVP Q3 PRN PRN Reason: Pain, severe (8-10) Last Admin: 08/08/18 06:55 Dose: 6 mg Morphine Sulfate (Morphine) 2 mg IVP Q10M PRN PRN Reason: Pain, severe (8-10) Last Admin: 08/08/18 12:39 Dose: 2 mg Pantoprazole Sodium (Protonix Ec Tab) 20 mg PO DAILY [facility] Last Admin: 08/08/18 13:32 Dose: 20 mg Saccharomyces Boulardii (Florastor) 250 mg PO BID [facility] Last Admin: 08/08/18 13:32 Dose: 250 mg Vitamin A (Vitamin A & D Oint Ud Foilpak) 1 ea EXT Q8 PRN PRN Reason: dry skin Last Admin: 08/07/18 20:56 Dose: 1 ea - Labs Labs: 08/07/18 11:42 08/07/18 11:42 PT 11.7 SECONDS (9.7-12.2) 08/01/18 16:06 INR 1.1 08/01/18 16:06 APTT 34 SECONDS (21-34) 08/01/18 16:06 - Additional Findings Additional findings: - Constitutional Appears: No Acute Distress - Head Exam Head Exam: ATRAUMATIC, NORMAL INSPECTION - Eye Exam Eye Exam: EOMI, Normal appearance - ENT Exam ENT Exam: Mucous Membranes Moist - Respiratory Exam Respiratory Exam: Clear to Ausculation Bilateral, Respiratory Distress, NORMAL BREATHING PATTERN. absent: Rales, Rhonchi, Wheezes - Cardiovascular Exam Cardiovascular Exam: REGULAR RHYTHM, +S1, +S2 - GI/Abdominal Exam GI & Abdominal Exam: Soft, Normal Bowel Sounds. absent: Distended, Firm, Tenderness - Exam Additional comments: s/p skin graft of bilateral inguinal regions; healing well. Intergluteal cleft- warm to palpation, tenderness to palpation - Extremities Exam Extremities Exam: absent: Calf Tenderness, Pedal Edema, Tenderness - Neurological Exam Neurological Exam: Alert, Awake, Oriented x3 - Psychiatric Exam Psychiatric exam: Normal Affect, Normal Mood - Skin Skin Exam: Normal Color, Warm Assessment and Plan - Assessment and Plan (Free Text) Plan: This is a 37 yo female with a past medical hx of recurrent hidradenitis suppurativa, gastritis, irritable bowel syndrome, and anxiety. Recurrent Hidradenitis Suppurativa of the groin/intergluteal cleft - Admitted for hidradenitis suppurativa of the intergluteal cleft bilaterally - s/p I&D on 08/02/[address] Siddiqui - s/p sx with Dr. Siddiqui 08/06/2018 - Schedule for OR w/ Dr. Siddiqui on 08/08/18 - Hx of multiple I&D's - General surgery consulted, Dr. Siddiqui; recs appreciated - ID consulted, Dr. Gastelum; recs appreciated - Groin wound on at last admission grew: Pseudomonas, E. coli, Proteus, and Kleb siella *Of note, on previous admissions, cultures have grown Acinetobacter Baumannii, E. Coli, Pseudomonas, Proteus Mirabilis - Wound cx (08/05/18): + ecoli ESBL * per Dr. Gastelum, started Merrem 500mg IV Q8h --> MUST check vitals [id number] for 1 hour after administering antibiotic. - Medications: * Started Merrem 500mg IV Q8h (active since 08/08/18) * Discontinued Aztreonam 1gm IV Q8h (active since 08/02/18) and Vancomycin 1gm IV Q12h (active since 08/02/18) * Morphine 6mg IV Q4 prn>>> changing to q 3 prn IBS - Chronic Diarrhea/ Constipation - Continue Home Bentyl 10mg po q6h - Milk of mag 30ml PO daily prn - Colace 100mg PO BID Pruritus/Seasonal Allergies - Continue Home Atarax 50mg po q8 Anxiety - Continue Home Xanax 1mg po bid Prophylaxis - DVT: C/I- preop. Will restart per surgery. - Protonix 20mg PO daily - Florastor 250mg po bid - PT All medical management as per Dr. Diehl
--- NOTE | 2018-08-08 16:27 | CP.PCM.PN ---
Subjective - Date & Time of Evaluation Date of Evaluation: 08/08/18 Time of Evaluation: 08:00 - Subjective Subjective: discussed on rounds add merrem no hx of anaphylaxis + ESBL wound Objective - Vital Signs/Intake and Output Vital Signs (last 24 hours): Temp Pulse Resp BP Pulse Ox 97.4 F L 71 12 108/70 96 08/08/18 13:00 08/08/18 13:00 08/08/18 13:00 08/08/18 13:00 08/08/18 13:00 Intake and Output: 08/08/18 08/08/18 06:59 18:59 Intake Total 1530 Balance 1530 - Medications Medications: Current Medications Alprazolam (Xanax) 1 mg PO BID PRN PRN Reason: Anxiety Last Admin: 08/07/18 12:02 Dose: 1 mg Dicyclomine HCl (Bentyl) 10 mg PO Q6 [facility] Last Admin: 08/08/18 13:12 Dose: 10 mg Docusate Sodium (Colace) 100 mg PO BID [facility] Last Admin: 08/08/18 13:32 Dose: 100 mg Hydroxyzine HCl (Atarax) 50 mg PO Q8 PRN PRN Reason: Allergy symptoms Last Admin: 08/07/18 21:50 Dose: 50 mg Meropenem 500 mg/ Sodium (Chloride) 100 mls @ 100 mls/hr IVPB Q8H [facility]; Protocol Magnesium Hydroxide (Milk Of Magnesia) 30 ml PO DAILY PRN PRN Reason: Constipation Last Admin: 08/08/18 13:46 Dose: 30 ml Morphine Sulfate (Morphine) 2 mg IVP Q10M PRN PRN Reason: Pain, severe (8-10) Last Admin: 08/06/18 18:07 Dose: 2 mg Morphine Sulfate (Morphine) 6 mg IVP Q3 PRN PRN Reason: Pain, severe (8-10) Last Admin: 08/08/18 16:15 Dose: 6 mg Morphine Sulfate (Morphine) 2 mg IVP Q10M PRN PRN Reason: Pain, severe (8-10) Last Admin: 08/08/18 12:39 Dose: 2 mg Pantoprazole Sodium (Protonix Ec Tab) 20 mg PO DAILY [facility] Last Admin: 08/08/18 13:32 Dose: 20 mg Saccharomyces Boulardii (Florastor) 250 mg PO BID [facility] Last Admin: 08/08/18 13:32 Dose: 250 mg Vitamin A (Vitamin A & D Oint Ud Foilpak) 1 ea EXT Q8 PRN PRN Reason: dry skin Last Admin: 08/07/18 20:56 Dose: 1 ea - Labs Labs: 08/07/18 11:42 08/07/18 11:42 PT 11.7 SECONDS (9.7-12.2) 08/01/18 16:06 INR 1.1 08/01/18 16:06 APTT 34 SECONDS (21-34) 08/01/18 16:06 - Constitutional Appears: Non-toxic - Head Exam Head Exam: NORMOCEPHALIC - Eye Exam Eye Exam: absent: Scleral icterus - ENT Exam ENT Exam: Mucous Membranes Dry - Neck Exam Neck Exam: absent: Lymphadenopathy - Respiratory Exam Respiratory Exam: Decreased Breath Sounds - Cardiovascular Exam Cardiovascular Exam: REGULAR RHYTHM - GI/Abdominal Exam GI & Abdominal Exam: Distended - Rectal Exam Rectal Exam: Deferred Assessment and Plan (1) Abscess Status: Acute (2) Cellulitis Status: Acute (3) Hidradenitis suppurativa Status: Acute
[2018-08-08] MEDS: Meropenem 500 MG in Sodium Chloride 0.9% 100 ML IVPB SCH (18:11)
--- NOTE | 2018-08-08 20:30 | OP ---
PROCEDURE DATE: 08/08/2018 PREOPERATIVE DIAGNOSIS: Rectal wound with rectal and pelvic abscess with large open wound. POSTOPERATIVE DIAGNOSIS: Rectal wound with rectal and pelvic abscess with large open wound. PROCEDURE PERFORMED: Pulse irrigation, debridement, change of packing and re-drainage of rectal and pelvic abscess. SURGEON: Nitish Siddiqui MD. ANESTHESIA: General. BLOOD LOSS: 30 mL. POSTOPERATIVE CONDITION: Stable. INDICATIONS FOR SURGERY: This is a 37-year-old female with a large open rectal and pelvic wound, taken back in a staged procedure for debridement, drainage, change of packing under anesthesia in preparation for possible Dermagraft tomorrow. DESCRIPTION OF PROCEDURE: The patient was taken to the operating room, placed in the prone position, IV sedation was administered along with a local anesthesia of 2.25% Marcaine and 1% lidocaine. The rectal area which the packing had been removed was then prepped and draped after the buttocks was taped open. A large open wound was again aggressively debrided into the rectal and pelvic regions in the retroperitoneum. Any remaining collections were drained and cultured. Bleeding was controlled with the Bovie and larger pelvic blood vessels were repaired. The wound was pulse irrigated with saline and Kantrex solution. Partial tissue flap closure was performed at the periphery utilizing counter incisions and full-thickness flaps. The central portion of wound was packed open with wet saline gauze. The patient tolerated the procedure well. Returned to recovery room in stable condition. Nitish Siddiqui MD
[2018-08-09] MEDS: Meropenem 500 MG in Sodium Chloride 0.9% 100 ML IVPB SCH ×3 (00:31→17:21)
--- NOTE | 2018-08-09 07:51 | CP.PCM.PN ---
Subjective - Date & Time of Evaluation Date of Evaluation: 08/09/18 Time of Evaluation: 07:51 - Subjective Subjective: PGY2 Progress note for Dr. Diehl Patient was seen and examined at bedside. Patient reports she has pain in the intergluteal clefts, especially with movement, but feels as though the swelling/inflammation has improved. The patient denies chest pain, palpitations, dyspnea, cough, nausea, vomiting, fevers, headaches, dysuria, and diarrhea. Objective - Vital Signs/Intake and Output Vital Signs (last 24 hours): Temp Pulse Resp BP Pulse Ox 98.9 F 118 H 20 111/75 95 08/08/18 23:20 08/08/18 23:20 08/08/18 23:20 08/08/18 23:20 08/08/18 23:20 - Medications Medications: Current Medications Alprazolam (Xanax) 1 mg PO BID PRN PRN Reason: Anxiety Last Admin: 08/08/18 22:28 Dose: 1 mg Dicyclomine HCl (Bentyl) 10 mg PO Q6 [facility] Last Admin: 08/09/18 06:33 Dose: 10 mg Docusate Sodium (Colace) 100 mg PO BID [facility] Last Admin: 08/08/18 18:14 Dose: Not Given Hydroxyzine HCl (Atarax) 50 mg PO Q8 PRN PRN Reason: Allergy symptoms Last Admin: 08/09/18 03:36 Dose: 50 mg Meropenem 500 mg/ Sodium (Chloride) 100 mls @ 100 mls/hr IVPB Q8H [facility]; Protocol Last Admin: 08/09/18 00:31 Dose: 100 mls/hr Magnesium Hydroxide (Milk Of Magnesia) 30 ml PO DAILY PRN PRN Reason: Constipation Last Admin: 08/08/18 13:46 Dose: 30 ml Morphine Sulfate (Morphine) 2 mg IVP Q10M PRN PRN Reason: Pain, severe (8-10) Last Admin: 08/06/18 18:07 Dose: 2 mg Morphine Sulfate (Morphine) 6 mg IVP Q3 PRN PRN Reason: Pain, severe (8-10) Last Admin: 08/09/18 06:33 Dose: 6 mg Morphine Sulfate (Morphine) 2 mg IVP Q10M PRN PRN Reason: Pain, severe (8-10) Last Admin: 08/08/18 12:39 Dose: 2 mg Pantoprazole Sodium (Protonix Ec Tab) 20 mg PO DAILY [facility] Last Admin: 08/08/18 13:32 Dose: 20 mg Saccharomyces Boulardii (Florastor) 250 mg PO BID [facility] Last Admin: 08/08/18 18:13 Dose: 250 mg Vitamin A (Vitamin A & D Oint Ud Foilpak) 1 ea EXT Q8 PRN PRN Reason: dry skin Last Admin: 08/07/18 20:56 Dose: 1 ea - Labs Labs: 08/07/18 11:42 08/07/18 11:42 PT 11.7 SECONDS (9.7-12.2) 08/01/18 16:06 INR 1.1 08/01/18 16:06 APTT 34 SECONDS (21-34) 08/01/18 16:06 - Additional Findings Additional findings: - Constitutional Appears: No Acute Distress - Head Exam Head Exam: ATRAUMATIC, NORMAL INSPECTION - Eye Exam Eye Exam: EOMI, Normal appearance - ENT Exam ENT Exam: Mucous Membranes Moist - Respiratory Exam Respiratory Exam: Clear to Ausculation Bilateral, Respiratory Distress, NORMAL BREATHING PATTERN. absent: Rales, Rhonchi, Wheezes - Cardiovascular Exam Cardiovascular Exam: REGULAR RHYTHM, +S1, +S2 - GI/Abdominal Exam GI & Abdominal Exam: Soft, Normal Bowel Sounds. absent: Distended, Firm, Tenderness - Exam Additional comments: s/p skin graft of bilateral inguinal regions; healing well. Intergluteal cleft- warm to palpation, tenderness to palpation - Extremities Exam Extremities Exam: absent: Calf Tenderness, Pedal Edema, Tenderness - Neurological Exam Neurological Exam: Alert, Awake, Oriented x3 - Psychiatric Exam Psychiatric exam: Normal Affect, Normal Mood - Skin Skin Exam: Normal Color, Warm Assessment and Plan - Assessment and Plan (Free Text) Plan: This is a 37 yo female with a past medical hx of recurrent hidradenitis suppurativa, gastritis, irritable bowel syndrome, and anxiety. Recurrent Hidradenitis Suppurativa of the groin/intergluteal cleft - Admitted for hidradenitis suppurativa of the intergluteal cleft bilaterally - s/p I&D on 08/02/18, 08/06/18, 08/08/[address] Siddiqui - Schedule for OR w/ Dr. Siddiuqi on 08/09/18 - Hx of multiple I&D's - General surgery consulted, Dr. Siddiqui; recs appreciated - ID consulted, Dr. Gastelum; recs appreciated - Groin wound on at last admission grew: Pseudomonas, E. coli, Proteus, and Kle bsiella *Of note, on previous admissions, cultures have grown Acinetobacter Baumannii, E. Coli, Pseudomonas, Proteus Mirabilis - Wound cx (08/05/18): + ecoli ESBL * per Dr. Gastelum, started Merrem 500mg IV Q8h --> MUST check vitals [id number] for 1 hour after administering antibiotic. - Medications: * Started Merrem 500mg IV Q8h (active since 08/08/18) * Discontinued Aztreonam 1gm IV Q8h (active since 08/02/18) and Vancomycin 1gm IV Q12h (active since 08/02/18) * Morphine 6mg IV Q4 prn>>> changed to q 3 prn IBS - Chronic Diarrhea/ Constipation - Continue Home Bentyl 10mg po q6h - Milk of mag 30ml PO daily prn - Colace 100mg PO BID Pruritus/Seasonal Allergies - Continue Home Atarax 50mg po q8 Anxiety - Continue Home Xanax 1mg po bid Depression - Psychiatrist consulted, Dr King; help appreciated Prophylaxis - DVT: C/I- preop. Will restart per surgery. - Protonix 20mg PO daily - Florastor 250mg po bid - PT All medical management as per Dr. Diehl
[2018-08-09 09:03] LABS: BASO % 0.6 % (0.0-2.0); EOS # 0.2 K/uL (0.0-0.7); EOS % 4.1 % (0.0-4.0); HEMOGLOBIN 9.2 g/dL (11.0-16.0); LYMPH # 2.4 K/uL (1.0-4.3); LYMPH % 43.1 % (20.0-40.0); MEAN CELL VOLUME 86.3 fL (81.0-99.0); MEAN CORPUSCULAR HEMOGLOBIN 28.4 pg (27.0-31.0); MEAN CORPUSCULAR HGB CONC 32.9 g/dL (33.0-37.0); MEAN PLATELET VOLUME 7.2 fL (7.2-11.7); MONO # 0.5 K/uL (0.0-0.8); MONO % 8.1 % (0.0-10.0); NEUT # 2.5 K/uL (1.8-7.0); NEUT % 44.1 % (50.0-75.0); NRBC % 0.1 % (0.0-2.0); RBC 3.25 Mil/uL (3.80-5.20); WHITE BLOOD COUNT 5.6 K/uL (4.8-10.8)
[2018-08-09 09:27] LABS: ALB/GLOB RATIO 1.2 (1.0-2.1); ALBUMIN 4.3 g/dL (3.5-5.0); ALT/SGPT 27 U/L (9-52); AST/SGOT 30 U/L (14-36); BLOOD UREA NITROGEN 9 mg/dL (7-17); CALCIUM 9.5 mg/dl (8.6-10.4); GFR NON-AFRICAN AMERICAN > 60
[2018-08-09] MEDS: Pantoprazole 20 mg EC Tab PO SCH (09:48)
[2018-08-09] MEDS: Saccharomyces Boulardi 250 mg Cap PO SCH ×2 (09:48→17:15)
[2018-08-09] MEDS ORDERED: Midazolam 2 MG/2 ML VIAL ONE ×2 (14:36→14:49)
[2018-08-09] MEDS ORDERED: Propofol 10 mg/ml Inj (20 ML) ONE (14:37)
[2018-08-09] MEDS ORDERED: Lidocaine Hydrochloride 10 ML INJ ONE ×2 (14:42→15:00)
--- NOTE | 2018-08-09 15:34 | CP.PCM.PCO ---
Physician Communication Note - Physician Communication Note Physician Communication Note: Pt is in OR. Case d/w dr. Mehta. lexapro started. To follow
--- NOTE | 2018-08-09 19:41 | CP.PCM.PN ---
Subjective - Date & Time of Evaluation Date of Evaluation: 08/09/18 Time of Evaluation: 10:00 - Subjective Subjective: no fever iv rx in progress Objective - Vital Signs/Intake and Output Vital Signs (last 24 hours): Temp Pulse Resp BP Pulse Ox 97.5 F L 97 H 20 122/81 96 08/09/18 16:40 08/09/18 16:40 08/09/18 16:40 08/09/18 16:40 08/09/18 16:40 Intake and Output: 08/09/18 08/10/18 18:59 06:59 Intake Total 500 Balance 500 - Medications Medications: Current Medications Alprazolam (Xanax) 1 mg PO BID PRN PRN Reason: Anxiety Last Admin: 08/09/18 08:53 Dose: 1 mg Dicyclomine HCl (Bentyl) 10 mg PO Q6 [facility] Last Admin: 08/09/18 17:16 Dose: 10 mg Docusate Sodium (Colace) 100 mg PO BID [facility] Last Admin: 08/09/18 17:15 Dose: 100 mg Escitalopram Oxalate (Lexapro) 5 mg PO DAILY [facility] Last Admin: 08/09/18 17:17 Dose: Not Given Hydroxyzine HCl (Atarax) 50 mg PO Q8 PRN PRN Reason: Allergy symptoms Last Admin: 08/09/18 03:36 Dose: 50 mg Meropenem 500 mg/ Sodium (Chloride) 100 mls @ 100 mls/hr IVPB Q8H [facility]; Protocol Last Admin: 08/09/18 17:21 Dose: 100 mls/hr Magnesium Hydroxide (Milk Of Magnesia) 30 ml PO DAILY PRN PRN Reason: Constipation Last Admin: 08/08/18 13:46 Dose: 30 ml Morphine Sulfate (Morphine) 2 mg IVP Q10M PRN PRN Reason: Pain, severe (8-10) Last Admin: 08/06/18 18:07 Dose: 2 mg Morphine Sulfate (Morphine) 6 mg IVP Q3 PRN PRN Reason: Pain, severe (8-10) Last Admin: 08/09/18 17:16 Dose: 6 mg Morphine Sulfate (Morphine) 2 mg IVP Q10M PRN PRN Reason: Pain, severe (8-10) Last Admin: 08/08/18 12:39 Dose: 2 mg Pantoprazole Sodium (Protonix Ec Tab) 20 mg PO DAILY [facility] Last Admin: 08/09/18 09:48 Dose: 20 mg Saccharomyces Boulardii (Florastor) 250 mg PO BID [facility] Last Admin: 08/09/18 17:15 Dose: 250 mg Vitamin A (Vitamin A & D Oint Ud Foilpak) 1 ea EXT Q8 PRN PRN Reason: dry skin Last Admin: 08/07/18 20:56 Dose: 1 ea - Labs Labs: 08/09/18 08:55 08/09/18 08:55 PT 11.7 SECONDS (9.7-12.2) 08/01/18 16:06 INR 1.1 08/01/18 16:06 APTT 34 SECONDS (21-34) 08/01/18 16:06 - Constitutional Appears: Non-toxic, Chronically Ill - Head Exam Head Exam: NORMOCEPHALIC - Eye Exam Eye Exam: absent: Scleral icterus - ENT Exam ENT Exam: Mucous Membranes Dry - Neck Exam Neck Exam: absent: Lymphadenopathy - Respiratory Exam Respiratory Exam: Decreased Breath Sounds - Cardiovascular Exam Cardiovascular Exam: REGULAR RHYTHM - GI/Abdominal Exam GI & Abdominal Exam: Distended Assessment and Plan (1) Abscess Status: Acute (2) Cellulitis Status: Acute (3) Hidradenitis suppurativa Status: Acute
[2018-08-10] MEDS: Meropenem 500 MG in Sodium Chloride 0.9% 100 ML IVPB SCH ×3 (00:20→18:15)
[2018-08-10] MEDS: Saccharomyces Boulardi 250 mg Cap PO SCH ×2 (09:28→18:14)
[2018-08-10] MEDS: Pantoprazole 20 mg EC Tab PO SCH (09:28)
--- NOTE | 2018-08-10 12:23 | PCM.PSYCH ---
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 Since December she claims she has been in and out of the hospital and had 21 surgeries. Her mood is consequently down, "my life has changed" she adds. Not suicidal and more anxious than depressed No drugs or alcohol PAst psychhx: Therapist when she was younger Family psych hx: Uncle has schizophrenia Medical hx: as above Current Medications: Active Medications Generic Name Dose Route Start Last Admin Trade Name Freq PRN Reason Stop Dose Admin Alprazolam 1 mg 08/01/18 22:16 08/10/18 01:35 Xanax PO 1 mg BID PRN Administration Anxiety Dicyclomine HCl 10 mg 08/02/18 00:00 08/10/18 07:39 Bentyl PO 10 mg Q6 [facility] Administration Docusate Sodium 100 mg 08/03/18 10:00 08/10/18 09:28 Colace PO 100 mg BID [facility] Administration Escitalopram Oxalate 5 mg 08/09/18 15:00 08/10/18 09:29 Lexapro PO Not Given DAILY [facility] Hydroxyzine HCl 50 mg 08/01/18 22:16 08/09/18 21:31 Atarax PO 50 mg Q8 PRN Administration Allergy symptoms Meropenem 500 mg/ Sodium 100 mls @ 100 mls/hr 08/08/18 17:00 08/10/18 09:28 Chloride IVPB 100 mls/hr Q8H [facility] Administration Protocol Magnesium Hydroxide 30 ml 08/03/18 16:28 08/08/18 13:46 Milk Of Magnesia PO 30 ml DAILY PRN Administration Constipation Morphine Sulfate 2 mg 08/06/18 17:38 08/06/18 18:07 Morphine IVP 2 mg Q10M PRN Administration Pain, severe (8-10) Morphine Sulfate 6 mg 08/07/18 11:11 08/10/18 07:40 Morphine IVP 6 mg Q3 PRN Administration Pain, severe (8-10) Morphine Sulfate 2 mg 08/08/18 11:49 08/08/18 12:39 Morphine IVP 2 mg Q10M PRN Administration Pain, severe (8-10) Pantoprazole Sodium 20 mg 08/02/18 10:00 08/10/18 09:28 Protonix Ec Tab PO 20 mg DAILY [facility] Administration Saccharomyces Boulardii 250 mg 08/02/18 18:00 08/10/18 09:28 Florastor PO 250 mg BID [facility] Administration Vitamin A 1 ea 08/06/18 06:00 08/07/18 20:56 Vitamin A & D Oint Ud Foilpak EXT 1 ea Q8 PRN Administration dry skin Past Psychiatric History - Past Psychiatric History Previous Treatment History: None Pertinent Medical Hx (Current Medical&Sleep Prob, Allergies): Allergies Allergy/AdvReac Type Severity Reaction Status Date / Time adhesive tape Allergy Severe RASH Verified 08/01/18 14:12 ciprofloxacin [From Cipro] Allergy Intermediate RASH Verified 08/01/18 14:12 ciprofloxacin HCl Allergy Intermediate RASH Verified 08/01/18 14:12 [From Cipro] hydromorphone HCl Allergy Intermediate RASH Verified 08/01/18 14:12 [From Dilaudid] Penicillins Allergy Intermediate RASH Verified 08/01/18 14:12 shrimp Allergy Intermediate RASH Verified 08/01/18 14:12 sulfamethoxazole Allergy Intermediate RASH Verified 08/01/18 14:12 [From Bactrim] trimethoprim [From Bactrim] Allergy Intermediate RASH Verified 08/01/18 14:12 levofloxacin [From Levaquin] Allergy ITCHING Verified 08/02/18 08:59 Dicyclomine [Bentyl] 10 mg PO Q6 01/03/18 hydrOXYzine HCl [Atarax] 50 mg PO Q8 PRN 01/03/18 Pantoprazole Sodium [Protonix] 20 mg PO DAILY #14 tablet. 04/25/18 ALPRAZolam [Xanax] 1 mg PO BID PRN tab 04/30/18 Levocetirizine Dihydrochloride [Xyzal] 5 mg PO DAILY 05/24/18 Ranitidine HCl [Ranitidine 150] 150 mg PO BID 06/17/18 Review of Systems - Psychiatric Psychiatric: Abnormal Sleep Pattern, Anhedonia, Anxiety, Change in Appetite, Depression, Difficulty Concentrating. absent: Hallucinations, Homicidal Ideation, Suicidal Ideation Mental Status Examination - Personal Presentation Personal Presentation: Looks stated age - Affect Affect: Constricted - Motor Activity Motor Activity: Calm - Reliability in Providing Information Reliability in Providing Information: Good - Speech Speech: Organized - Mood Mood: Depressed, Anxious - Formal Thought Process Formal Thought Process: No Impairment - Cognitive Functions Orientation: Person, Place, Situation, Time Sensorium: Alert Attention/Concentration: Attentive Estimate of Intelligence: Average Judgement: Intact, as evidence by: Insight regarding need for hospitalization Memory: Recent intact, as evidence by: Ability to recall events of the day, Remote intact, as evidenced by: Abilit to recall sig. life events - Risk Risk: Diminished functioning - Strength & Assets Inventory Strength & Assets Inventory: Family support, Employment history, Cooperative - Limitations Limitations: Other DSM 5 DX - DSM 5 DSM 5 Diagnosis: Adjustment d/o - with anxiety and depressed mood PRECIOUS Depressive d/o - unspecified - Recommended/Plan of Treatment Treatment Recommendations and Plan of Treatment: Lexapro for depression and anxiety prn xnax for anxiety Support and psychoed Refer to CR[facility] 33 min
[2018-08-10] MEDS ORDERED: Oxycodone/Acetaminophen 5/325 mg Tab PO ONE (14:31)
[2018-08-11] MEDS: Meropenem 500 MG in Sodium Chloride 0.9% 100 ML IVPB SCH ×3 (00:16→17:49)
[2018-08-11] MEDS: Saccharomyces Boulardi 250 mg Cap PO SCH ×2 (09:50→17:47)
[2018-08-11] MEDS: Pantoprazole 20 mg EC Tab PO SCH (09:50)
[2018-08-11] MEDS ORDERED: Oxycodone/Acetaminophen 5/325 mg Tab PO STA (11:11)
--- NOTE | 2018-08-11 17:19 | CP.PCM.PN ---
Subjective - Date & Time of Evaluation Date of Evaluation: 08/11/18 Time of Evaluation: 07:00 - Subjective Subjective: + VRE and ESBL wounds isolation IV rx ordered Objective - Vital Signs/Intake and Output Vital Signs (last 24 hours): Temp Pulse Resp BP Pulse Ox 98.4 F 71 20 108/68 97 08/11/18 15:35 08/11/18 15:35 08/11/18 15:35 08/11/18 15:35 08/11/18 15:35 Intake and Output: 08/11/18 08/11/18 06:59 18:59 Intake Total 900 Balance 900 - Medications Medications: Current Medications Alprazolam (Xanax) 1 mg PO BID PRN PRN Reason: Anxiety Last Admin: 08/10/18 21:17 Dose: 1 mg Dicyclomine HCl (Bentyl) 10 mg PO Q6 [facility] Last Admin: 08/11/18 13:08 Dose: 10 mg Docusate Sodium (Colace) 100 mg PO BID [facility] Last Admin: 08/11/18 09:50 Dose: 100 mg Escitalopram Oxalate (Lexapro) 5 mg PO DAILY [facility] Last Admin: 08/11/18 10:01 Dose: Not Given Gabapentin (Neurontin) 300 mg PO BID [facility] Last Admin: 08/11/18 09:50 Dose: 300 mg Hydroxyzine HCl (Atarax) 50 mg PO Q8 PRN PRN Reason: Allergy symptoms Last Admin: 08/11/18 11:47 Dose: 50 mg Meropenem 500 mg/ Sodium (Chloride) 100 mls @ 100 mls/hr IVPB Q8H [facility]; Protocol Last Admin: 08/11/18 09:50 Dose: 100 mls/hr Daptomycin 600 mg/ Sodium (Chloride) 100 mls @ 100 mls/hr IV Q24H [facility]; Protocol Stop: 08/16/18 18:01 Magnesium Hydroxide (Milk Of Magnesia) 30 ml PO DAILY PRN PRN Reason: Constipation Last Admin: 08/08/18 13:46 Dose: 30 ml Pantoprazole Sodium (Protonix Ec Tab) 20 mg PO DAILY [facility] Last Admin: 08/11/18 09:50 Dose: 20 mg Saccharomyces Boulardii (Florastor) 250 mg PO BID [facility] Last Admin: 08/11/18 09:50 Dose: 250 mg Trazodone HCl (Desyrel) 50 mg PO HS PRN PRN Reason: Insomnia Vitamin A (Vitamin A & D Oint Ud Foilpak) 1 ea EXT Q8 PRN PRN Reason: dry skin Last Admin: 08/07/18 20:56 Dose: 1 ea - Labs Labs: 08/09/18 08:55 08/09/18 08:55 PT 11.7 SECONDS (9.7-12.2) 08/01/18 16:06 INR 1.1 08/01/18 16:06 APTT 34 SECONDS (21-34) 08/01/18 16:06 - Constitutional Appears: Non-toxic, Chronically Ill - Head Exam Head Exam: NORMOCEPHALIC - Eye Exam Eye Exam: absent: Scleral icterus - ENT Exam ENT Exam: Mucous Membranes Dry - Neck Exam Neck Exam: absent: Lymphadenopathy - Respiratory Exam Respiratory Exam: Decreased Breath Sounds - Cardiovascular Exam Cardiovascular Exam: REGULAR RHYTHM - GI/Abdominal Exam GI & Abdominal Exam: Distended, Soft Assessment and Plan (1) Abscess Status: Acute (2) Cellulitis Status: Acute (3) Hidradenitis suppurativa Status: Acute
[2018-08-11] MEDS: Morphine 4 MG/ML VIAL IVP PRN ×2 (18:22→23:28)
[2018-08-11] MEDS: DAPTOmycin 600 MG in Sodium Chloride 0.9% 100 ML IV SCH (19:41)
[2018-08-12] MEDS: Meropenem 500 MG in Sodium Chloride 0.9% 100 ML IVPB SCH ×3 (00:51→17:02)
[2018-08-12] MEDS: Morphine 4 MG/ML VIAL IVP PRN ×5 (03:59→20:21)
--- NOTE | 2018-08-12 07:45 | PN ---
DATE: 08/11/2018 SUBJECTIVE: The patient needs IV antibiotics, supportive care. Viviane Diehl MD
[2018-08-12] MEDS: Saccharomyces Boulardi 250 mg Cap PO SCH ×2 (10:29→18:03)
[2018-08-12] MEDS: Pantoprazole 20 mg EC Tab PO SCH (10:29)
[2018-08-12] MEDS: Vitamins A & D Oint UD Foilpak EXT PRN (10:29)
[2018-08-12 11:26] LABS: BASO % 0.9 % (0.0-2.0); EOS # 0.2 K/uL (0.0-0.7); HEMOGLOBIN 8.7 g/dL (11.0-16.0); LYMPH # 2.5 K/uL (1.0-4.3); LYMPH % 50.7 % (20.0-40.0); MEAN CELL VOLUME 85.7 fL (81.0-99.0); MEAN CORPUSCULAR HGB CONC 33.8 g/dL (33.0-37.0); MEAN PLATELET VOLUME 7.5 fL (7.2-11.7); MONO # 0.5 K/uL (0.0-0.8); MONO % 10.1 % (0.0-10.0); NEUT # 1.7 K/uL (1.8-7.0); NEUT % 34.3 % (50.0-75.0); RBC 2.99 Mil/uL (3.80-5.20); RED CELL DISTRIBUTION WIDTH 14.9 % (11.5-14.5)
[2018-08-12 11:57] LABS: ALB/GLOB RATIO 1.1 (1.0-2.1); ALBUMIN 3.7 g/dL (3.5-5.0); ALT/SGPT 19 U/L (9-52); AST/SGOT 24 U/L (14-36); BLOOD UREA NITROGEN 13 mg/dL (7-17); CALCIUM 8.9 mg/dl (8.6-10.4); GFR NON-AFRICAN AMERICAN > 60
--- NOTE | 2018-08-12 12:57 | CP.PCM.PN ---
Subjective - Date & Time of Evaluation Date of Evaluation: 08/12/18 Time of Evaluation: 13:00 - Subjective Subjective: PGY3 Note for Dr. Diehl this patient was seen and examined at bedside this AM; patient states she is overly depressed/anxious about her situation, but denies fevers/chills, BAIN, CP, SOb, abdominal pain, N/V/d, dysuria/freq/urg or lower extremity pain. Objective - Vital Signs/Intake and Output Vital Signs (last 24 hours): Temp Pulse Resp BP Pulse Ox 98.1 F 76 20 109/66 96 08/12/18 08:00 08/12/18 08:00 08/12/18 08:00 08/12/18 08:00 08/12/18 08:00 - Medications Medications: Current Medications Alprazolam (Xanax) 1 mg PO BID PRN PRN Reason: Anxiety Last Admin: 08/12/18 00:56 Dose: 1 mg Dicyclomine HCl (Bentyl) 10 mg PO Q6 [facility] Last Admin: 08/12/18 06:59 Dose: 10 mg Docusate Sodium (Colace) 100 mg PO BID [facility] Last Admin: 08/12/18 10:29 Dose: 100 mg Escitalopram Oxalate (Lexapro) 5 mg PO DAILY [facility] Last Admin: 08/12/18 10:29 Dose: Not Given Gabapentin (Neurontin) 300 mg PO BID [facility] Last Admin: 08/12/18 10:29 Dose: 300 mg Hydroxyzine HCl (Atarax) 50 mg PO Q8 PRN PRN Reason: Allergy symptoms Last Admin: 08/12/18 00:51 Dose: 50 mg Meropenem 500 mg/ Sodium (Chloride) 100 mls @ 100 mls/hr IVPB Q8H [facility]; Protocol Last Admin: 08/12/18 10:29 Dose: 100 mls/hr Daptomycin 600 mg/ Sodium (Chloride) 100 mls @ 100 mls/hr IV Q24H [facility]; Protocol Stop: 08/16/18 18:01 Last Admin: 08/11/18 19:41 Dose: 100 mls/hr Magnesium Hydroxide (Milk Of Magnesia) 30 ml PO DAILY PRN PRN Reason: Constipation Last Admin: 08/08/18 13:46 Dose: 30 ml Morphine Sulfate (Morphine) 6 mg IVP Q3 PRN PRN Reason: Pain, severe (8-10) Last Admin: 08/12/18 10:30 Dose: 6 mg Pantoprazole Sodium (Protonix Ec Tab) 20 mg PO DAILY [facility] Last Admin: 08/12/18 10:29 Dose: 20 mg Saccharomyces Boulardii (Florastor) 250 mg PO BID [facility] Last Admin: 08/12/18 10:29 Dose: 250 mg Trazodone HCl (Desyrel) 50 mg PO HS PRN PRN Reason: Insomnia Vitamin A (Vitamin A & D Oint Ud Foilpak) 1 ea EXT Q8 PRN PRN Reason: dry skin Last Admin: 08/12/18 10:29 Dose: 1 ea - Labs Labs: 08/12/18 11:09 08/12/18 11:09 PT 11.7 SECONDS (9.7-12.2) 08/01/18 16:06 INR 1.1 08/01/18 16:06 APTT 34 SECONDS (21-34) 08/01/18 16:06 - Constitutional Appears: Non-toxic - Head Exam Head Exam: ATRAUMATIC - Eye Exam Eye Exam: EOMI - ENT Exam ENT Exam: Mucous Membranes Moist - Neck Exam Neck Exam: Full ROM. absent: Lymphadenopathy - Respiratory Exam Respiratory Exam: Clear to Ausculation Bilateral, NORMAL BREATHING PATTERN. absent: Rales, Rhonchi, Wheezes - Cardiovascular Exam Cardiovascular Exam: REGULAR RHYTHM, +S1, +S2 - GI/Abdominal Exam GI & Abdominal Exam: Soft. absent: Tenderness - Extremities Exam Extremities Exam: Full ROM. absent: Calf Tenderness - Back Exam Back Exam: absent: CVA tenderness (L), CVA tenderness (R) - Neurological Exam Neurological Exam: Alert, Normal Gait, Oriented x3 - Psychiatric Exam Psychiatric exam: Anxious, Depressed. absent: Normal Affect - Skin Skin Exam: Warm Assessment and Plan - Assessment and Plan (Free Text) Assessment: This is a 37 yo female with a past medical hx of recurrent hidradenitis suppurativa, gastritis, irritable bowel syndrome, and anxiety. Recurrent Hidradenitis Suppurativa of the groin/intergluteal cleft - Admitted for hidradenitis suppurativa of the intergluteal cleft bilaterally - s/p I&D on 08/02/18, 08/06/18, 08/08/[address] Siddiqui - Schedule for OR w/ Dr. Siddiqui on 08/09/18 - Hx of multiple I&D's - General surgery consulted, Dr. Siddiqui; recs appreciated - ID consulted, Dr. Gastelum; recs appreciated - Groin wound on at last admission grew: Pseudomonas, E. coli, Proteus, and Klebsiella *Of note, on previous admissions, cultures have grown Acinetobacter Baumannii, E. Coli, Pseudomonas, Proteus Mirabilis - Wound cx (08/05/18): + ecoli ESBL * Patient has VRE * Daptomycin and Meropenem on board; sensitive to Linezolid as well - Medications: * Merrem 500mg IV Q8h (active since 08/08/18) * Daptomycin for VRE * sensitive to linezolid * Morphine 6mg IV Q4 prn>>> changed to q 3 prn IBS - Chronic Diarrhea/ Constipation - Continue Home Bentyl 10mg po q6h - Milk of mag 30ml PO daily prn - Colace 100mg PO BID Pruritus/Seasonal Allergies - Continue Home Atarax 50mg po q8 Anxiety - Continue Home Xanax 1mg po bid Depression - Psychiatrist consulted, Dr King; rec lexapro 5mg daily Prophylaxis - DVT: C/I- preop. Will restart per surgery. - Protonix 20mg PO daily - Florastor 250mg po bid - PT All medical management as per Dr. Diehl Patient will ultimately need electrolysis for removal of hair follicles to prevent future abscesses from hidradenitis; patient is aware and has been planning to do for some time Ron Pantoja PGY3
[2018-08-12] MEDS: DAPTOmycin 600 MG in Sodium Chloride 0.9% 100 ML IV SCH (18:02)
[2018-08-13] MEDS: Meropenem 500 MG in Sodium Chloride 0.9% 100 ML IVPB SCH ×3 (00:45→16:55)
[2018-08-13] MEDS: Morphine 4 MG/ML VIAL IVP PRN ×4 (01:00→16:55)
[2018-08-13] MEDS: oxyCODONE 5 mg Immediate Release Tab PO PRN ×3 (02:34→18:36)
[2018-08-13 07:13] LABS: BASO # 0.1 K/uL (0.0-0.2); BASO % 1.2 % (0.0-2.0); EOS # 0.2 K/uL (0.0-0.7); EOS % 3.1 % (0.0-4.0); HEMOGLOBIN 8.6 g/dL (11.0-16.0); LYMPH # 2.7 K/uL (1.0-4.3); LYMPH % 45.4 % (20.0-40.0); MEAN CELL VOLUME 85.1 fL (81.0-99.0); MEAN CORPUSCULAR HEMOGLOBIN 28.9 pg (27.0-31.0); MEAN CORPUSCULAR HGB CONC 33.9 g/dL (33.0-37.0); MEAN PLATELET VOLUME 7.2 fL (7.2-11.7); MONO # 0.6 K/uL (0.0-0.8); NEUT # 2.4 K/uL (1.8-7.0); NEUT % 40.3 % (50.0-75.0); RBC 2.97 Mil/uL (3.80-5.20); RED CELL DISTRIBUTION WIDTH 14.8 % (11.5-14.5); WHITE BLOOD COUNT 5.9 K/uL (4.8-10.8)
[2018-08-13 07:39] LABS: ALBUMIN 3.4 g/dL (3.5-5.0); ALT/SGPT 23 U/L (9-52); AST/SGOT 26 U/L (14-36); BLOOD UREA NITROGEN 14 mg/dL (7-17); CALCIUM 8.8 mg/dl (8.6-10.4); GFR NON-AFRICAN AMERICAN > 60
--- NOTE | 2018-08-13 09:03 | CP.PCM.PN ---
Subjective - Date & Time of Evaluation Date of Evaluation: 08/13/18 Time of Evaluation: 09:00 - Subjective Subjective: Progress Note for Dr. Diehl's Service: Patient was seen and examined at bedside in the AM. Patient states her packing was changed yesterday. She states her pain comes and goes. Objective - Vital Signs/Intake and Output Vital Signs (last 24 hours): Temp Pulse Resp BP Pulse Ox 98 F 86 20 106/66 95 08/13/18 07:58 08/13/18 07:58 08/13/18 07:58 08/13/18 07:58 08/13/18 07:58 Intake and Output: 08/13/18 08/13/18 06:59 18:59 Intake Total 600 Balance 600 - Medications Medications: Current Medications Alprazolam (Xanax) 1 mg PO BID PRN PRN Reason: Anxiety Last Admin: 08/12/18 00:56 Dose: 1 mg Dicyclomine HCl (Bentyl) 10 mg PO Q6 [facility]ERIO Last Admin: 08/13/18 07:42 Dose: 10 mg Docusate Sodium (Colace) 100 mg PO BID [facility] Last Admin: 08/12/18 18:04 Dose: 100 mg Escitalopram Oxalate (Lexapro) 5 mg PO DAILY [facility] Last Admin: 08/12/18 10:29 Dose: Not Given Gabapentin (Neurontin) 300 mg PO BID [facility] Last Admin: 08/12/18 18:04 Dose: 300 mg Hydroxyzine HCl (Atarax) 50 mg PO Q8 PRN PRN Reason: Allergy symptoms Last Admin: 08/13/18 01:08 Dose: 50 mg Meropenem 500 mg/ Sodium (Chloride) 100 mls @ 100 mls/hr IVPB Q8H ROGERIO; Protocol Last Admin: 08/13/18 00:45 Dose: 100 mls/hr Daptomycin 600 mg/ Sodium (Chloride) 100 mls @ 100 mls/hr IV Q24H ROGERIO; Protocol Stop: 08/16/18 18:01 Last Admin: 08/12/18 18:02 Dose: 100 mls/hr Lactulose (Enulose) 20 gm PO Q12H PRN PRN Reason: Constipatoin Magnesium Hydroxide (Milk Of Magnesia) 30 ml PO DAILY PRN PRN Reason: Constipation Last Admin: 08/08/18 13:46 Dose: 30 ml Morphine Sulfate (Morphine) 6 mg IVP Q3 PRN PRN Reason: Pain, severe (8-10) Last Admin: 08/13/18 07:42 Dose: 6 mg Oxycodone HCl (Oxycodone Immediate Release Tab) 5 mg PO Q6 PRN PRN Reason: Pain, moderate (4-7) Last Admin: 08/13/18 02:34 Dose: 5 mg Pantoprazole Sodium (Protonix Ec Tab) 20 mg PO DAILY [facility] Last Admin: 08/12/18 10:29 Dose: 20 mg Saccharomyces Boulardii (Florastor) 250 mg PO BID [facility] Last Admin: 08/12/18 18:03 Dose: 250 mg Trazodone HCl (Desyrel) 50 mg PO HS PRN PRN Reason: Insomnia Vitamin A (Vitamin A & D Oint Ud Foilpak) 1 ea EXT Q8 PRN PRN Reason: dry skin Last Admin: 08/12/18 10:29 Dose: 1 ea - Labs Labs: 08/13/18 07:06 08/13/18 07:06 PT 11.7 SECONDS (9.7-12.2) 08/01/18 16:06 INR 1.1 08/01/18 16:06 APTT 34 SECONDS (21-34) 08/01/18 16:06 - Constitutional Appears: In Acute Distress - Head Exam Head Exam: ATRAUMATIC, NORMAL INSPECTION - Eye Exam Eye Exam: EOMI, Normal appearance - ENT Exam ENT Exam: Mucous Membranes Moist - Respiratory Exam Respiratory Exam: Clear to Ausculation Bilateral, NORMAL BREATHING PATTERN - Cardiovascular Exam Cardiovascular Exam: REGULAR RHYTHM, +S1, +S2 - GI/Abdominal Exam GI & Abdominal Exam: Soft, Normal Bowel Sounds. absent: Tenderness - Extremities Exam Extremities Exam: Normal Inspection - Neurological Exam Neurological Exam: Alert, Awake, Oriented x3 - Psychiatric Exam Psychiatric exam: Normal Affect - Skin Skin Exam: Warm Additional comments: rectal packing in place Assessment and Plan - Assessment and Plan (Free Text) Assessment: This is a 37 yo female with a past medical hx of recurrent hidradenitis suppurativa, gastritis, irritable bowel syndrome, and anxiety. Recurrent Hidradenitis Suppurativa of the groin/intergluteal cleft - Admitted for hidradenitis suppurativa of the intergluteal cleft bilaterally - s/p I&D on 08/02/18, 08/06/18, 08/08/[address] Siddiqui - Schedule for OR w/ Dr. Siddiqui on 08/09/18 - Hx of multiple I&D's - General surgery consulted, Dr. Siddiqui; recs appreciated - ID consulted, Dr. Gastelum; recs appreciated - Groin wound on at last admission grew: Pseudomonas, E. coli, Proteus, and Klebsiella *Of note, on previous admissions, cultures have grown Acinetobacter Baumannii, E. Coli, Pseudomonas, Proteus Mirabilis - Wound cx (08/05/18): + ecoli ESBL * Patient has VRE * Daptomycin and Meropenem on board; sensitive to Linezolid as well - Medications: * Merrem 500mg IV Q8h (active since 08/08/18) * Daptomycin for VRE * sensitive to linezolid * Morphine 6mg IV Q4 prn>>> changed to q 3 prn IBS - Chronic Diarrhea/ Constipation - Continue Home Bentyl 10mg po q6h - Milk of mag 30ml PO daily prn - Colace 100mg PO BID Pruritus/Seasonal Allergies - Continue Home Atarax 50mg po q8 Anxiety - Continue Home Xanax 1mg po bid Depression - Psychiatrist consulted, Dr King; rec lexapro 5mg daily Prophylaxis - DVT: C/I- preop. Will restart per surgery. - Protonix 20mg PO daily - Florastor 250mg po bid - PT - Patient will ultimately need electrolysis for removal of hair follicles to prevent future abscesses from hidradenitis; patient is aware and has been planning to do for some time All medical management as per Dr. Fazal Kam PGY-2
[2018-08-13] MEDS: Saccharomyces Boulardi 250 mg Cap PO SCH ×2 (09:12→17:03)
[2018-08-13] MEDS: Pantoprazole 20 mg EC Tab PO SCH (09:13)
[2018-08-13] MEDS: DAPTOmycin 600 MG in Sodium Chloride 0.9% 100 ML IV SCH (17:05)
[2018-08-14] MEDS: Meropenem 500 MG in Sodium Chloride 0.9% 100 ML IVPB SCH ×3 (00:38→17:31)
[2018-08-14] MEDS: Morphine 4 MG/ML VIAL IVP PRN ×4 (02:49→17:29)
[2018-08-14] MEDS: oxyCODONE 5 mg Immediate Release Tab PO PRN ×2 (04:12→19:30)
[2018-08-14 07:41] LABS: BASO % 0.9 % (0.0-2.0); EOS # 0.2 K/uL (0.0-0.7); EOS % 4.2 % (0.0-4.0); HEMOGLOBIN 8.1 g/dL (11.0-16.0); LYMPH # 2.5 K/uL (1.0-4.3); LYMPH % 47.6 % (20.0-40.0); MEAN CELL VOLUME 85.6 fL (81.0-99.0); MEAN CORPUSCULAR HEMOGLOBIN 28.1 pg (27.0-31.0); MEAN CORPUSCULAR HGB CONC 32.9 g/dL (33.0-37.0); MEAN PLATELET VOLUME 7.4 fL (7.2-11.7); MONO # 0.5 K/uL (0.0-0.8); MONO % 9.4 % (0.0-10.0); NEUT % 37.9 % (50.0-75.0); RBC 2.87 Mil/uL (3.80-5.20); RED CELL DISTRIBUTION WIDTH 14.9 % (11.5-14.5); WHITE BLOOD COUNT 5.2 K/uL (4.8-10.8)
[2018-08-14 08:46] LABS: ALB/GLOB RATIO 1.1 (1.0-2.1); ALBUMIN 3.4 g/dL (3.5-5.0); ALT/SGPT 27 U/L (9-52); AST/SGOT 19 U/L (14-36); BLOOD UREA NITROGEN 14 mg/dL (7-17); CALCIUM 8.6 mg/dl (8.6-10.4); GFR NON-AFRICAN AMERICAN > 60
[2018-08-14] MEDS: Saccharomyces Boulardi 250 mg Cap PO SCH ×2 (09:30→17:25)
[2018-08-14] MEDS: Pantoprazole 20 mg EC Tab PO SCH (09:30)
--- NOTE | 2018-08-14 09:38 | CP.PCM.PN ---
Subjective - Date & Time of Evaluation Date of Evaluation: 08/14/18 Time of Evaluation: 09:00 - Subjective Subjective: Progress Note for Dr. Diehl's Service: Patient was seen and examined at bedside in the AM. Patient states it was difficult for her to sleep overnight due to the pain which comes and goes and her anxiety. She denies diarrhea and states her stool is soft which is her usual at home. She denies fever, chills, diarrhea, constipation or dysuria. Objective - Vital Signs/Intake and Output Vital Signs (last 24 hours): Temp Pulse Resp BP Pulse Ox 97.6 F 93 H 20 123/86 97 08/14/18 07:48 08/14/18 07:48 08/14/18 07:48 08/14/18 07:48 08/14/18 07:48 - Medications Medications: Current Medications Alprazolam (Xanax) 1 mg PO BID PRN PRN Reason: Anxiety Last Admin: 08/14/18 05:25 Dose: 1 mg Dicyclomine HCl (Bentyl) 10 mg PO Q6 ROGERIO Last Admin: 08/14/18 06:59 Dose: 10 mg Docusate Sodium (Colace) 100 mg PO BID [facility] Last Admin: 08/14/18 09:30 Dose: 100 mg Escitalopram Oxalate (Lexapro) 5 mg PO DAILY [facility] Last Admin: 08/14/18 09:34 Dose: Not Given Gabapentin (Neurontin) 300 mg PO BID [facility] Last Admin: 08/14/18 09:30 Dose: 300 mg Hydroxyzine HCl (Atarax) 50 mg PO Q8 PRN PRN Reason: Allergy symptoms Last Admin: 08/14/18 02:49 Dose: 50 mg Meropenem 500 mg/ Sodium (Chloride) 100 mls @ 100 mls/hr IVPB Q8H ROGERIO; Protocol Last Admin: 08/14/18 09:29 Dose: 100 mls/hr Daptomycin 600 mg/ Sodium (Chloride) 100 mls @ 100 mls/hr IV Q24H ROGERIO; Protocol Stop: 08/16/18 18:01 Last Admin: 08/13/18 17:05 Dose: 100 mls/hr Lactulose (Enulose) 20 gm PO Q12H PRN PRN Reason: Constipatoin Magnesium Hydroxide (Milk Of Magnesia) 30 ml PO DAILY PRN PRN Reason: Constipation Last Admin: 08/08/18 13:46 Dose: 30 ml Morphine Sulfate (Morphine) 6 mg IVP Q3 PRN PRN Reason: Pain, severe (8-10) Last Admin: 08/14/18 07:17 Dose: 6 mg Oxycodone HCl (Oxycodone Immediate Release Tab) 5 mg PO Q6 PRN PRN Reason: Pain, moderate (4-7) Last Admin: 08/14/18 04:12 Dose: 5 mg Pantoprazole Sodium (Protonix Ec Tab) 20 mg PO DAILY [facility]IO Last Admin: 08/14/18 09:30 Dose: 20 mg Saccharomyces Boulardii (Florastor) 250 mg PO BID [facility] Last Admin: 08/14/18 09:30 Dose: 250 mg Trazodone HCl (Desyrel) 50 mg PO HS PRN PRN Reason: Insomnia Vitamin A (Vitamin A & D Oint Ud Foilpak) 1 ea EXT Q8 PRN PRN Reason: dry skin Last Admin: 08/12/18 10:29 Dose: 1 ea - Labs Labs: 08/14/18 07:21 08/14/18 07:21 PT 11.7 SECONDS (9.7-12.2) 08/01/18 16:06 INR 1.1 08/01/18 16:06 APTT 34 SECONDS (21-34) 08/01/18 16:06 - Constitutional Appears: No Acute Distress - Head Exam Head Exam: ATRAUMATIC, NORMAL INSPECTION - Eye Exam Eye Exam: EOMI, Normal appearance - ENT Exam ENT Exam: Mucous Membranes Moist - Respiratory Exam Respiratory Exam: Clear to Ausculation Bilateral, NORMAL BREATHING PATTERN - Cardiovascular Exam Cardiovascular Exam: REGULAR RHYTHM, +S1, +S2 - GI/Abdominal Exam GI & Abdominal Exam: Soft, Normal Bowel Sounds. absent: Tenderness - Extremities Exam Extremities Exam: Normal Inspection - Neurological Exam Neurological Exam: Alert, Awake, Oriented x3 - Psychiatric Exam Psychiatric exam: Normal Affect - Skin Additional comments: rectal packing in place Assessment and Plan - Assessment and Plan (Free Text) Assessment: This is a 37 yo female with a past medical hx of recurrent hidradenitis suppurativa, gastritis, irritable bowel syndrome, and anxiety. Recurrent Hidradenitis Suppurativa of the groin/intergluteal cleft - Admitted for hidradenitis suppurativa of the intergluteal cleft bilaterally - s/p I&D on 08/02/18, 08/06/18, 08/08/[address] Siddiqui - Schedule for OR w/ Dr. Siddiqui on 08/09/18 - Hx of multiple I&D's - General surgery consulted, Dr. Siddiqui; recs appreciated - ID consulted, Dr. Gastelum; recs appreciated - Groin wound on at last admission grew: Pseudomonas, E. coli, Proteus, and Klebsiella *Of note, on previous admissions, cultures have grown Acinetobacter Baumannii, E. Coli, Pseudomonas, Proteus Mirabilis - Wound cx (08/05/18): + ecoli ESBL * Patient has VRE * Daptomycin and Meropenem on board; sensitive to Linezolid as well - Medications: * Merrem 500mg IV Q8h (active since 08/08/18) * Daptomycin for VRE * sensitive to linezolid * Morphine 6mg IV Q4 prn>>> changed to q 3 prn IBS - Chronic Diarrhea/ Constipation - Continue Home Bentyl 10mg po q6h - Milk of mag 30ml PO daily prn - Colace 100mg PO BID Pruritus/Seasonal Allergies - Continue Home Atarax 50mg po q8 Anxiety - Continue Home Xanax 1mg po bid Depression - Psychiatrist consulted, Dr King; rec lexapro 5mg daily Prophylaxis - DVT: C/I- preop. Will restart per surgery. - Protonix 20mg PO daily - Florastor 250mg po bid - PT - Patient will ultimately need electrolysis for removal of hair follicles to prevent future abscesses from hidradenitis; patient is aware and has been planning to do for some time All medical management as per Dr. Fazal Kam PGY-2
--- NOTE | 2018-08-14 18:30 | CP.PCM.PN ---
Subjective - Date & Time of Evaluation Date of Evaluation: 08/14/18 Time of Evaluation: 08:00 - Subjective Subjective: iv rx in progress tolerating well NAD Objective - Vital Signs/Intake and Output Vital Signs (last 24 hours): Temp Pulse Resp BP Pulse Ox 98.1 F 97 H 20 131/85 97 08/14/18 16:11 08/14/18 16:11 08/14/18 16:11 08/14/18 16:11 08/14/18 16:11 Intake and Output: 08/14/18 08/14/18 06:59 18:59 Intake Total 900 Balance 900 - Medications Medications: Current Medications Alprazolam (Xanax) 1 mg PO BID PRN PRN Reason: Anxiety Last Admin: 08/14/18 05:25 Dose: 1 mg Dicyclomine HCl (Bentyl) 10 mg PO Q6 ROGERIO Last Admin: 08/14/18 17:25 Dose: 10 mg Docusate Sodium (Colace) 100 mg PO BID [facility]IO Last Admin: 08/14/18 17:25 Dose: 100 mg Escitalopram Oxalate (Lexapro) 5 mg PO DAILY [facility] Last Admin: 08/14/18 09:34 Dose: Not Given Gabapentin (Neurontin) 300 mg PO BID [facility]OGERIO Last Admin: 08/14/18 17:25 Dose: 300 mg Hydroxyzine HCl (Atarax) 50 mg PO Q8 PRN PRN Reason: Allergy symptoms Last Admin: 08/14/18 02:49 Dose: 50 mg Meropenem 500 mg/ Sodium (Chloride) 100 mls @ 100 mls/hr IVPB Q8H ROGERIO; Protocol Last Admin: 08/14/18 17:31 Dose: 100 mls/hr Daptomycin 600 mg/ Sodium (Chloride) 100 mls @ 100 mls/hr IV Q24H ROGERIO; Protocol Stop: 08/16/18 18:01 Last Admin: 08/13/18 17:05 Dose: 100 mls/hr Lactulose (Enulose) 20 gm PO Q12H PRN PRN Reason: Constipatoin Magnesium Hydroxide (Milk Of Magnesia) 30 ml PO DAILY PRN PRN Reason: Constipation Last Admin: 08/08/18 13:46 Dose: 30 ml Morphine Sulfate (Morphine) 6 mg IVP Q3 PRN PRN Reason: Pain, severe (8-10) Last Admin: 08/14/18 17:29 Dose: 6 mg Oxycodone HCl (Oxycodone Immediate Release Tab) 5 mg PO Q6 PRN PRN Reason: Pain, moderate (4-7) Last Admin: 08/14/18 04:12 Dose: 5 mg Pantoprazole Sodium (Protonix Ec Tab) 20 mg PO DAILY [facility] Last Admin: 08/14/18 09:30 Dose: 20 mg Saccharomyces Boulardii (Florastor) 250 mg PO BID [facility]OGERIO Last Admin: 08/14/18 17:25 Dose: 250 mg Trazodone HCl (Desyrel) 50 mg PO HS PRN PRN Reason: Insomnia Vitamin A (Vitamin A & D Oint Ud Foilpak) 1 ea EXT Q8 PRN PRN Reason: dry skin Last Admin: 08/12/18 10:29 Dose: 1 ea - Labs Labs: 08/14/18 07:21 08/14/18 07:21 PT 11.7 SECONDS (9.7-12.2) 08/01/18 16:06 INR 1.1 08/01/18 16:06 APTT 34 SECONDS (21-34) 08/01/18 16:06 - Constitutional Appears: Non-toxic, Chronically Ill - Head Exam Head Exam: NORMOCEPHALIC - Eye Exam Eye Exam: absent: Scleral icterus - ENT Exam ENT Exam: Mucous Membranes Dry - Neck Exam Neck Exam: absent: Lymphadenopathy - Respiratory Exam Respiratory Exam: Decreased Breath Sounds - Cardiovascular Exam Cardiovascular Exam: REGULAR RHYTHM - GI/Abdominal Exam GI & Abdominal Exam: Distended - Rectal Exam Rectal Exam: Deferred - Exam Exam: NORMAL INSPECTION - Extremities Exam Extremities Exam: absent: Pedal Edema - Back Exam Back Exam: absent: CVA tenderness (L), CVA tenderness (R) - Neurological Exam Neurological Exam: Alert, Awake, CN II-XII Intact. absent: Motor Sensory Deficit - Psychiatric Exam Psychiatric exam: Normal Mood Assessment and Plan (1) Abscess Status: Acute (2) Cellulitis Status: Acute (3) Hidradenitis suppurativa Status: Acute - Assessment and Plan (Free Text) Assessment: cont cubicin / merrem wound care
[2018-08-14] MEDS: DAPTOmycin 600 MG in Sodium Chloride 0.9% 100 ML IV SCH (19:04)
[2018-08-15] MEDS: Meropenem 500 MG in Sodium Chloride 0.9% 100 ML IVPB SCH ×3 (00:08→17:15)
[2018-08-15] MEDS: Morphine 4 MG/ML VIAL IVP PRN ×5 (00:09→20:20)
[2018-08-15] MEDS: oxyCODONE 5 mg Immediate Release Tab PO PRN ×2 (01:33→11:48)
[2018-08-15 06:53] LABS: BASO # 0.1 K/uL (0.0-0.2); BASO % 0.9 % (0.0-2.0); EOS # 0.2 K/uL (0.0-0.7); EOS % 4.1 % (0.0-4.0); HEMOGLOBIN 8.2 g/dL (11.0-16.0); LYMPH # 2.7 K/uL (1.0-4.3); LYMPH % 49.3 % (20.0-40.0); MEAN CELL VOLUME 84.8 fL (81.0-99.0); MEAN CORPUSCULAR HEMOGLOBIN 28.5 pg (27.0-31.0); MEAN CORPUSCULAR HGB CONC 33.6 g/dL (33.0-37.0); MEAN PLATELET VOLUME 7.5 fL (7.2-11.7); MONO # 0.5 K/uL (0.0-0.8); MONO % 8.5 % (0.0-10.0); NEUT # 2.1 K/uL (1.8-7.0); NEUT % 37.2 % (50.0-75.0); RBC 2.86 Mil/uL (3.80-5.20); RED CELL DISTRIBUTION WIDTH 14.9 % (11.5-14.5); WHITE BLOOD COUNT 5.5 K/uL (4.8-10.8)
[2018-08-15 07:02] LABS: ALBUMIN 3.4 g/dL (3.5-5.0); ALT/SGPT 29 U/L (9-52); AST/SGOT 27 U/L (14-36); BLOOD UREA NITROGEN 14 mg/dL (7-17); CALCIUM 8.6 mg/dl (8.6-10.4); GFR NON-AFRICAN AMERICAN > 60
[2018-08-15] MEDS: Pantoprazole 20 mg EC Tab PO SCH (10:30)
[2018-08-15] MEDS: Saccharomyces Boulardi 250 mg Cap PO SCH ×2 (10:30→17:15)
--- NOTE | 2018-08-15 12:29 | CP.PCM.PCO ---
Physician Communication Note - Physician Communication Note Physician Communication Note: Lexapro stopped. Pt refusing. Psych will sign off.
[2018-08-15] MEDS: DAPTOmycin 600 MG in Sodium Chloride 0.9% 100 ML IV SCH (17:17)
[2018-08-16] MEDS: Meropenem 500 MG in Sodium Chloride 0.9% 100 ML IVPB SCH ×3 (00:16→17:11)
[2018-08-16] MEDS: Morphine 4 MG/ML VIAL IVP PRN ×4 (01:43→20:33)
[2018-08-16] MEDS: oxyCODONE 5 mg Immediate Release Tab PO PRN ×2 (06:06→15:32)
[2018-08-16 07:22] LABS: BASO % 0.7 % (0.0-2.0); EOS # 0.2 K/uL (0.0-0.7); EOS % 3.8 % (0.0-4.0); HEMOGLOBIN 8.1 g/dL (11.0-16.0); LYMPH # 2.7 K/uL (1.0-4.3); LYMPH % 51.4 % (20.0-40.0); MEAN CELL VOLUME 85.1 fL (81.0-99.0); MEAN CORPUSCULAR HEMOGLOBIN 28.3 pg (27.0-31.0); MEAN CORPUSCULAR HGB CONC 33.3 g/dL (33.0-37.0); MEAN PLATELET VOLUME 7.5 fL (7.2-11.7); MONO # 0.5 K/uL (0.0-0.8); MONO % 9.5 % (0.0-10.0); NEUT # 1.8 K/uL (1.8-7.0); NEUT % 34.6 % (50.0-75.0); RBC 2.86 Mil/uL (3.80-5.20); WHITE BLOOD COUNT 5.2 K/uL (4.8-10.8)
[2018-08-16 07:59] LABS: ALBUMIN 3.4 g/dL (3.5-5.0); ALT/SGPT 41 U/L (9-52); AST/SGOT 35 U/L (14-36); BLOOD UREA NITROGEN 12 mg/dL (7-17); CALCIUM 8.6 mg/dl (8.6-10.4); GFR NON-AFRICAN AMERICAN > 60
[2018-08-16] MEDS: Pantoprazole 20 mg EC Tab PO SCH (10:55)
[2018-08-16] MEDS: Saccharomyces Boulardi 250 mg Cap PO SCH ×2 (10:56→17:10)
--- NOTE | 2018-08-16 11:28 | CP.PCM.PN ---
Subjective - Date & Time of Evaluation Date of Evaluation: 08/16/18 Time of Evaluation: 09:20 - Subjective Subjective: Progress Note for Dr. Diehl's Service: Patient was seen and examined at bedside. Patient still admits to moderate intermittent pain. Upon ROS, patient denies diarrhea, constipation, fever, chills, nausea, vomiting, dysuria, fever, or chills. Patient is tolerating diet and ambulating. Objective - Vital Signs/Intake and Output Vital Signs (last 24 hours): Temp Pulse Resp BP Pulse Ox 97.8 F 62 20 101/63 96 08/16/18 07:51 08/16/18 07:51 08/16/18 07:51 08/16/18 07:51 08/16/18 07:51 Intake and Output: 08/16/18 08/16/18 06:59 18:59 Intake Total 240 Balance 240 - Medications Medications: Current Medications Alprazolam (Xanax) 1 mg PO BID PRN PRN Reason: Anxiety Last Admin: 08/16/18 02:33 Dose: 1 mg Dicyclomine HCl (Bentyl) 10 mg PO Q6 ROGERIO Last Admin: 08/16/18 06:06 Dose: 10 mg Docusate Sodium (Colace) 100 mg PO BID ROGERIO Last Admin: 08/16/18 10:55 Dose: 100 mg Gabapentin (Neurontin) 300 mg PO BID ROGERIO Last Admin: 08/16/18 10:55 Dose: 300 mg Hydroxyzine HCl (Atarax) 50 mg PO Q8 PRN PRN Reason: Allergy symptoms Last Admin: 08/16/18 10:58 Dose: 50 mg Meropenem 500 mg/ Sodium (Chloride) 100 mls @ 100 mls/hr IVPB Q8H ROGERIO; Protocol Last Admin: 08/16/18 10:55 Dose: 100 mls/hr Daptomycin 600 mg/ Sodium (Chloride) 100 mls @ 100 mls/hr IV Q24H ROGERIO; Protocol Stop: 08/16/18 18:01 Last Admin: 08/15/18 17:17 Dose: 100 mls/hr Lactulose (Enulose) 20 gm PO Q12H PRN PRN Reason: Constipatoin Magnesium Hydroxide (Milk Of Magnesia) 30 ml PO DAILY PRN PRN Reason: Constipation Last Admin: 08/08/18 13:46 Dose: 30 ml Morphine Sulfate (Morphine) 6 mg IVP Q3 PRN PRN Reason: Pain, severe (8-10) Last Admin: 08/16/18 10:56 Dose: 6 mg Oxycodone HCl (Oxycodone Immediate Release Tab) 5 mg PO Q6 PRN PRN Reason: Pain, moderate (4-7) Last Admin: 08/16/18 06:06 Dose: 5 mg Pantoprazole Sodium (Protonix Ec Tab) 20 mg PO DAILY [facility] Last Admin: 08/16/18 10:55 Dose: 20 mg Saccharomyces Boulardii (Florastor) 250 mg PO BID ROGERIO Last Admin: 08/16/18 10:56 Dose: 250 mg Trazodone HCl (Desyrel) 50 mg PO HS PRN PRN Reason: Insomnia Vitamin A (Vitamin A & D Oint Ud Foilpak) 1 ea EXT Q8 PRN PRN Reason: dry skin Last Admin: 08/12/18 10:29 Dose: 1 ea - Labs Labs: 08/16/18 07:15 08/16/18 07:15 PT 11.7 SECONDS (9.7-12.2) 08/01/18 16:06 INR 1.1 08/01/18 16:06 APTT 34 SECONDS (21-34) 08/01/18 16:06 - Constitutional Appears: Well, No Acute Distress - Head Exam Head Exam: ATRAUMATIC, NORMAL INSPECTION - Eye Exam Eye Exam: EOMI, Normal appearance - ENT Exam ENT Exam: Mucous Membranes Moist - Respiratory Exam Respiratory Exam: Clear to Ausculation Bilateral, NORMAL BREATHING PATTERN - Cardiovascular Exam Cardiovascular Exam: REGULAR RHYTHM, +S1, +S2 - GI/Abdominal Exam GI & Abdominal Exam: Soft, Normal Bowel Sounds. absent: Firm, Guarding, Rigid, Tenderness - Rectal Exam Additional comments: Rectal packing is in place and clean and currently dry - Extremities Exam Extremities Exam: Normal Inspection. absent: Calf Tenderness, Pedal Edema - Neurological Exam Neurological Exam: Alert, Awake, Oriented x3 - Psychiatric Exam Psychiatric exam: Anxious, Depressed - Skin Skin Exam: Normal Color Assessment and Plan (1) Abscess Assessment & Plan: This is a 37 yo female with a past medical hx of recurrent hidradenitis suppurativa, gastritis, irritable bowel syndrome, and anxiety. Recurrent Hidradenitis Suppurativa of the groin/intergluteal cleft - Admitted for hidradenitis suppurativa of the intergluteal cleft bilaterally - s/p I&D on 08/02/18, 08/06/18, 08/08/[address] Siddiqui - Schedule for OR w/ Dr. Siddiqui on 08/09/18 - Hx of multiple I&D's - General surgery consulted, Dr. Siddiqui; recs appreciated - ID consulted, Dr. Gastelum; recs appreciated - Groin wound on at last admission grew: Pseudomonas, E. coli, Proteus, and Klebsiella *Of note, on previous admissions, cultures have grown Acinetobacter Baumannii, E. Coli, Pseudomonas, Proteus Mirabilis - Wound cx (08/05/18): + ecoli ESBL * Patient has VRE * Daptomycin and Meropenem on board; sensitive to Linezolid as well - Medications: * Merrem 500mg IV Q8h (active since 08/08/18) * Daptomycin for VRE (Initiated 08/11/18) * sensitive to linezolid * Morphine 6mg IV Q4 prn>>> changed to q 3 prn Status: Acute (2) IBS (irritable bowel syndrome) Assessment & Plan: - Chronic Diarrhea/ Constipation - Continue Home Bentyl 10mg po q6h - Milk of mag 30ml PO daily prn - Colace 100mg PO BID Status: Acute (3) Allergic urticaria Assessment & Plan: - Continue Home Atarax 50mg po q8 Status: Resolved (4) Psychiatric disorder Assessment & Plan: Anxiety and depression: * Continue Home Xanax 1mg po bid - Psychiatrist consulted, Dr King; rec lexapro 5mg daily * As per psychiatry documentation, patient refused Status: Acute (5) Prophylactic measure Assessment & Plan: - DVT: SCDs - Protonix 20mg PO daily - Florastor 250mg po bid - PT - Patient will ultimately need electrolysis for removal of hair follicles to prevent future abscesses from hidradenitis; patient is aware and has been planning to do for some time Awaiting clearance from Dr. Martinez for discharge All medical management as per Dr. Diehl Status: Acute
--- NOTE | 2018-08-16 15:47 | RAD ---
Date of service: 08/16/2018 HISTORY: verify right PICC COMPARISON: No prior. FINDINGS: Interval placement right-sided PICC line the tip of which is somewhat difficult to visualize however appears to be located in the region of the SVC/RA junction. LUNGS: Poor inspiration with low lung volumes, crowded bronchovascular markings and mild bibasilar atelectasis. PLEURA: No significant pleural effusion identified, no pneumothorax apparent. CARDIOVASCULAR: No aortic atherosclerotic calcification present. Heart appears enlarged.. No pulmonary vascular congestion. OSSEOUS STRUCTURES: No significant abnormalities. VISUALIZED UPPER ABDOMEN: Normal. OTHER FINDINGS: None. IMPRESSION: Interval placement right-sided PICC line the tip of which is somewhat difficult to visualize however appears to be located in the region of the SVC/RA junction. Poor inspiration with low lung volumes, crowded bronchovascular markings and mild bibasilar atelectasis..
[2018-08-16] MEDS: DAPTOmycin 600 MG in Sodium Chloride 0.9% 100 ML IV SCH (17:11)
[2018-08-16] MEDS: Enoxaparin 40 mg Syringe SC SCH (17:11)
--- NOTE | 2018-08-16 17:31 | CP.PCM.PN ---
Subjective - Date & Time of Evaluation Date of Evaluation: 08/16/18 Time of Evaluation: 07:00 - Subjective Subjective: iv rx renewed Objective - Vital Signs/Intake and Output Vital Signs (last 24 hours): Temp Pulse Resp BP Pulse Ox 98.0 F 75 20 122/78 97 08/16/18 15:00 08/16/18 15:00 08/16/18 15:00 08/16/18 15:00 08/16/18 15:00 Intake and Output: 08/16/18 08/16/18 06:59 18:59 Intake Total 240 Balance 240 - Medications Medications: Current Medications Alprazolam (Xanax) 1 mg PO BID PRN PRN Reason: Anxiety Last Admin: 08/16/18 02:33 Dose: 1 mg Dicyclomine HCl (Bentyl) 10 mg PO Q6 ROGERIO Last Admin: 08/16/18 17:10 Dose: 10 mg Docusate Sodium (Colace) 100 mg PO BID ROGERIO Last Admin: 08/16/18 17:11 Dose: 100 mg Enoxaparin Sodium (Lovenox) 40 mg SC Q24H ROGERIO Last Admin: 08/16/18 17:11 Dose: 40 mg Gabapentin (Neurontin) 300 mg PO BID ROGERIO Last Admin: 08/16/18 17:20 Dose: 300 mg Hydroxyzine HCl (Atarax) 50 mg PO Q8 PRN PRN Reason: Allergy symptoms Last Admin: 08/16/18 10:58 Dose: 50 mg Meropenem 500 mg/ Sodium (Chloride) 100 mls @ 100 mls/hr IVPB Q8H ROGERIO; Protocol Last Admin: 08/16/18 17:11 Dose: 100 mls/hr Daptomycin 600 mg/ Sodium (Chloride) 100 mls @ 100 mls/hr IV Q24H ROGERIO; Protocol Stop: 08/16/18 18:01 Last Admin: 08/16/18 17:11 Dose: 100 mls/hr Lactulose (Enulose) 20 gm PO Q12H PRN PRN Reason: Constipatoin Magnesium Hydroxide (Milk Of Magnesia) 30 ml PO DAILY PRN PRN Reason: Constipation Last Admin: 08/08/18 13:46 Dose: 30 ml Morphine Sulfate (Morphine) 6 mg IVP Q3 PRN PRN Reason: Pain, severe (8-10) Last Admin: 08/16/18 10:56 Dose: 6 mg Oxycodone HCl (Oxycodone Immediate Release Tab) 5 mg PO Q6 PRN PRN Reason: Pain, moderate (4-7) Last Admin: 08/16/18 15:32 Dose: 5 mg Pantoprazole Sodium (Protonix Ec Tab) 20 mg PO DAILY [facility] Last Admin: 08/16/18 10:55 Dose: 20 mg Saccharomyces Boulardii (Florastor) 250 mg PO BID ROGERIO Last Admin: 08/16/18 17:10 Dose: 250 mg Trazodone HCl (Desyrel) 50 mg PO HS PRN PRN Reason: Insomnia Vitamin A (Vitamin A & D Oint Ud Foilpak) 1 ea EXT Q8 PRN PRN Reason: dry skin Last Admin: 08/12/18 10:29 Dose: 1 ea - Labs Labs: 08/16/18 07:15 08/16/18 07:15 PT 11.7 SECONDS (9.7-12.2) 08/01/18 16:06 INR 1.1 08/01/18 16:06 APTT 34 SECONDS (21-34) 08/01/18 16:06 - Constitutional Appears: Non-toxic, Chronically Ill - Head Exam Head Exam: NORMOCEPHALIC - Eye Exam Eye Exam: absent: Scleral icterus - ENT Exam ENT Exam: Mucous Membranes Dry - Neck Exam Neck Exam: absent: Lymphadenopathy - Respiratory Exam Respiratory Exam: Decreased Breath Sounds - Cardiovascular Exam Cardiovascular Exam: REGULAR RHYTHM - GI/Abdominal Exam GI & Abdominal Exam: Distended - Rectal Exam Rectal Exam: Deferred - Exam Exam: NORMAL INSPECTION Assessment and Plan (1) Abscess Status: Acute (2) Cellulitis Status: Acute (3) Hidradenitis suppurativa Status: Acute
[2018-08-17] MEDS: Meropenem 500 MG in Sodium Chloride 0.9% 100 ML IVPB SCH ×3 (00:05→17:44)
[2018-08-17] MEDS: Morphine 4 MG/ML VIAL IVP PRN ×5 (00:55→21:06)
[2018-08-17 07:55] LABS: BASO % 0.8 % (0.0-2.0); EOS # 0.2 K/uL (0.0-0.7); EOS % 3.6 % (0.0-4.0); HEMOGLOBIN 8.2 g/dL (11.0-16.0); LYMPH # 2.9 K/uL (1.0-4.3); LYMPH % 49.5 % (20.0-40.0); MEAN CELL VOLUME 84.7 fL (81.0-99.0); MEAN CORPUSCULAR HEMOGLOBIN 28.7 pg (27.0-31.0); MEAN CORPUSCULAR HGB CONC 33.8 g/dL (33.0-37.0); MEAN PLATELET VOLUME 7.5 fL (7.2-11.7); MONO # 0.6 K/uL (0.0-0.8); MONO % 9.6 % (0.0-10.0); NEUT # 2.1 K/uL (1.8-7.0); NEUT % 36.5 % (50.0-75.0); RBC 2.86 Mil/uL (3.80-5.20); RED CELL DISTRIBUTION WIDTH 14.7 % (11.5-14.5); WHITE BLOOD COUNT 5.8 K/uL (4.8-10.8)
[2018-08-17 08:38] LABS: ALB/GLOB RATIO 0.9 (1.0-2.1); ALBUMIN 3.2 g/dL (3.5-5.0); ALT/SGPT 38 U/L (9-52); AST/SGOT 26 U/L (14-36); BLOOD UREA NITROGEN 12 mg/dL (7-17); CALCIUM 8.5 mg/dl (8.6-10.4); GFR NON-AFRICAN AMERICAN > 60
[2018-08-17] MEDS: Pantoprazole 20 mg EC Tab PO SCH (09:42)
[2018-08-17] MEDS: Saccharomyces Boulardi 250 mg Cap PO SCH ×2 (09:42→17:44)
[2018-08-17] MEDS: Enoxaparin 40 mg Syringe SC SCH (16:18)
[2018-08-17] MEDS ORDERED: Magnesium Hydroxide Susp 30 ml UD PO PRN (19:29)
[2018-08-18] MEDS: Meropenem 500 MG in Sodium Chloride 0.9% 100 ML IVPB SCH ×3 (00:51→16:26)
[2018-08-18] MEDS: Morphine 4 MG/ML VIAL IVP PRN ×4 (03:32→17:53)
[2018-08-18 08:39] LABS: BASO % 0.8 % (0.0-2.0); EOS # 0.3 K/uL (0.0-0.7); EOS % 5.3 % (0.0-4.0); HEMOGLOBIN 8.2 g/dL (11.0-16.0); LYMPH # 2.4 K/uL (1.0-4.3); LYMPH % 46.3 % (20.0-40.0); MEAN CELL VOLUME 84.8 fL (81.0-99.0); MEAN CORPUSCULAR HEMOGLOBIN 28.2 pg (27.0-31.0); MEAN CORPUSCULAR HGB CONC 33.2 g/dL (33.0-37.0); MEAN PLATELET VOLUME 7.5 fL (7.2-11.7); MONO # 0.5 K/uL (0.0-0.8); MONO % 10.1 % (0.0-10.0); NEUT # 1.9 K/uL (1.8-7.0); NEUT % 37.5 % (50.0-75.0); NRBC % 0.1 % (0.0-2.0); RBC 2.92 Mil/uL (3.80-5.20); RED CELL DISTRIBUTION WIDTH 14.8 % (11.5-14.5); WHITE BLOOD COUNT 5.2 K/uL (4.8-10.8)
[2018-08-18 08:58] LABS: ALBUMIN 3.2 g/dL (3.5-5.0); ALT/SGPT 34 U/L (9-52); AST/SGOT 26 U/L (14-36); BLOOD UREA NITROGEN 12 mg/dL (7-17); CALCIUM 8.6 mg/dl (8.6-10.4); GFR NON-AFRICAN AMERICAN > 60
[2018-08-18] MEDS: Saccharomyces Boulardi 250 mg Cap PO SCH ×2 (09:45→17:28)
[2018-08-18] MEDS: Pantoprazole 20 mg EC Tab PO SCH (09:45)
[2018-08-18] MEDS: oxyCODONE 5 mg Immediate Release Tab PO PRN (11:10)
--- NOTE | 2018-08-18 16:12 | CP.PCM.PN ---
Subjective - Date & Time of Evaluation Date of Evaluation: 08/18/18 Time of Evaluation: 10:00 - Subjective Subjective: no new complaints slow to heal IV rx renewed Objective - Vital Signs/Intake and Output Vital Signs (last 24 hours): Temp Pulse Resp BP Pulse Ox 97.6 F 67 20 101/67 96 08/18/18 08:21 08/18/18 08:21 08/18/18 08:21 08/18/18 08:21 08/18/18 08:21 - Medications Medications: Current Medications Alprazolam (Xanax) 1 mg PO BID PRN PRN Reason: Anxiety Last Admin: 08/18/18 09:50 Dose: 1 mg Bacitracin (Bacitracin) 1 ea TOP BID PRN PRN Reason: APPLY TO GROIN Dicyclomine HCl (Bentyl) 10 mg PO Q6 ROGERIO Last Admin: 08/18/18 12:47 Dose: 10 mg Docusate Sodium (Colace) 100 mg PO BID [facility] Last Admin: 08/18/18 09:45 Dose: 100 mg Enoxaparin Sodium (Lovenox) 40 mg SC Q24H [facility] Last Admin: 08/17/18 16:18 Dose: 40 mg Gabapentin (Neurontin) 300 mg PO BID [facility] Last Admin: 08/18/18 09:45 Dose: 300 mg Hydroxyzine HCl (Atarax) 50 mg PO Q8 PRN PRN Reason: Allergy symptoms Last Admin: 08/18/18 03:37 Dose: 50 mg Meropenem 500 mg/ Sodium (Chloride) 100 mls @ 100 mls/hr IVPB Q8H [facility]OGERIO; Protocol Last Admin: 08/18/18 09:46 Dose: 100 mls/hr Daptomycin 600 mg/ Sodium (Chloride) 100 mls @ 100 mls/hr IV Q24H [facility]OGERIO; Protocol Stop: 08/23/18 18:01 Lactulose (Enulose) 20 gm PO Q12H PRN PRN Reason: Constipatoin Magnesium Hydroxide (Milk Of Magnesia) 30 ml PO DAILY PRN PRN Reason: Constipation Morphine Sulfate (Morphine) 6 mg IVP Q3 PRN PRN Reason: Pain, severe (8-10) Last Admin: 08/18/18 12:47 Dose: 6 mg Oxycodone HCl (Oxycodone Immediate Release Tab) 5 mg PO Q6 PRN PRN Reason: Pain, moderate (4-7) Last Admin: 08/18/18 11:10 Dose: 5 mg Pantoprazole Sodium (Protonix Ec Tab) 20 mg PO DAILY [facility] Last Admin: 08/18/18 09:45 Dose: 20 mg Saccharomyces Boulardii (Florastor) 250 mg PO BID [facility] Last Admin: 08/18/18 09:45 Dose: 250 mg Trazodone HCl (Desyrel) 50 mg PO HS PRN PRN Reason: Insomnia Vitamin A (Vitamin A & D Oint Ud Foilpak) 1 ea EXT Q8 PRN PRN Reason: dry skin Last Admin: 08/12/18 10:29 Dose: 1 ea - Labs Labs: 08/18/18 08:25 08/18/18 08:25 PT 11.7 SECONDS (9.7-12.2) 08/01/18 16:06 INR 1.1 08/01/18 16:06 APTT 34 SECONDS (21-34) 08/01/18 16:06 - Constitutional Appears: Non-toxic, Chronically Ill - Head Exam Head Exam: NORMOCEPHALIC - Eye Exam Eye Exam: absent: Scleral icterus - ENT Exam ENT Exam: Mucous Membranes Dry - Neck Exam Neck Exam: absent: Lymphadenopathy - Respiratory Exam Respiratory Exam: Decreased Breath Sounds - Cardiovascular Exam Cardiovascular Exam: REGULAR RHYTHM - GI/Abdominal Exam GI & Abdominal Exam: Distended, Soft - Rectal Exam Rectal Exam: Deferred - Exam Exam: NORMAL INSPECTION Assessment and Plan (1) Abscess Status: Acute (2) Cellulitis Status: Acute (3) Hidradenitis suppurativa Status: Acute
[2018-08-18] MEDS: Enoxaparin 40 mg Syringe SC SCH (16:26)
[2018-08-18] MEDS: DAPTOmycin 600 MG in Sodium Chloride 0.9% 100 ML IV SCH (17:38)
[2018-08-19] MEDS: Meropenem 500 MG in Sodium Chloride 0.9% 100 ML IVPB SCH ×3 (00:24→17:02)
[2018-08-19] MEDS: Morphine 4 MG/ML VIAL IVP PRN ×5 (00:57→21:19)
[2018-08-19 07:37] LABS: BASO % 0.8 % (0.0-2.0); EOS # 0.3 K/uL (0.0-0.7); EOS % 5.7 % (0.0-4.0); HEMOGLOBIN 8.6 g/dL (11.0-16.0); LYMPH # 2.6 K/uL (1.0-4.3); LYMPH % 49.4 % (20.0-40.0); MEAN CELL VOLUME 84.2 fL (81.0-99.0); MEAN CORPUSCULAR HEMOGLOBIN 28.1 pg (27.0-31.0); MEAN CORPUSCULAR HGB CONC 33.4 g/dL (33.0-37.0); MEAN PLATELET VOLUME 7.4 fL (7.2-11.7); MONO # 0.5 K/uL (0.0-0.8); MONO % 8.9 % (0.0-10.0); NEUT # 1.9 K/uL (1.8-7.0); NEUT % 35.2 % (50.0-75.0); RBC 3.04 Mil/uL (3.80-5.20); RED CELL DISTRIBUTION WIDTH 14.9 % (11.5-14.5); WHITE BLOOD COUNT 5.3 K/uL (4.8-10.8)
[2018-08-19] MEDS: oxyCODONE 5 mg Immediate Release Tab PO PRN (07:42)
[2018-08-19 07:58] LABS: ALBUMIN 3.3 g/dL (3.5-5.0); ALT/SGPT 48 U/L (9-52); AST/SGOT 50 U/L (14-36); BLOOD UREA NITROGEN 12 mg/dL (7-17); CALCIUM 8.8 mg/dl (8.6-10.4); GFR NON-AFRICAN AMERICAN > 60
[2018-08-19] MEDS: Pantoprazole 20 mg EC Tab PO SCH (10:37)
[2018-08-19] MEDS: Saccharomyces Boulardi 250 mg Cap PO SCH ×2 (10:37→17:02)
--- NOTE | 2018-08-19 14:09 | CP.PCM.PN ---
Subjective - Date & Time of Evaluation Date of Evaluation: 08/19/18 Time of Evaluation: 14:08 - Subjective Subjective: PGY3 Medicine Note for Dr. Diehl This patient was seen and examined at bedside this AM; denies any acute complaints other than minor pain where her wound is; she is able to clean it and dress it herself; she denies fevers/chills, BAIN, CP, SOB, abdominal pain, N/V/D, dysuria/freq/urg or lower extremity pain/swelling. Objective - Vital Signs/Intake and Output Vital Signs (last 24 hours): Temp Pulse Resp BP Pulse Ox 97.9 F 83 20 104/67 97 08/19/18 12:34 08/19/18 12:34 08/19/18 12:34 08/19/18 12:34 08/19/18 12:34 - Medications Medications: Current Medications Alprazolam (Xanax) 1 mg PO BID PRN PRN Reason: Anxiety Last Admin: 08/19/18 01:50 Dose: 1 mg Bacitracin (Bacitracin) 1 ea TOP BID PRN PRN Reason: APPLY TO GROIN Dicyclomine HCl (Bentyl) 10 mg PO Q6 ROGERIO Last Admin: 08/19/18 12:20 Dose: 10 mg Docusate Sodium (Colace) 100 mg PO BID [facility] Last Admin: 08/19/18 10:38 Dose: Not Given Enoxaparin Sodium (Lovenox) 40 mg SC Q24H [facility]OG[facility]IO Last Admin: 08/18/18 16:26 Dose: 40 mg Gabapentin (Neurontin) 300 mg PO BID [facility] Last Admin: 08/19/18 10:37 Dose: 300 mg Hydroxyzine HCl (Atarax) 50 mg PO Q8 PRN PRN Reason: Allergy symptoms Last Admin: 08/19/18 12:14 Dose: 50 mg Meropenem 500 mg/ Sodium (Chloride) 100 mls @ 100 mls/hr IVPB Q8H ROGERIO; Protocol Last Admin: 08/19/18 10:37 Dose: 100 mls/hr Daptomycin 600 mg/ Sodium (Chloride) 100 mls @ 100 mls/hr IV Q24H [facility]OGERIO; Protocol Stop: 08/23/18 18:01 Last Admin: 08/18/18 17:38 Dose: 100 mls/hr Lactulose (Enulose) 20 gm PO Q12H PRN PRN Reason: Constipatoin Magnesium Hydroxide (Milk Of Magnesia) 30 ml PO DAILY PRN PRN Reason: Constipation Morphine Sulfate (Morphine) 6 mg IVP Q3 PRN PRN Reason: Pain, severe (8-10) Last Admin: 08/19/18 12:13 Dose: 6 mg Oxycodone HCl (Oxycodone Immediate Release Tab) 5 mg PO Q6 PRN PRN Reason: Pain, moderate (4-7) Last Admin: 08/19/18 07:42 Dose: 5 mg Pantoprazole Sodium (Protonix Ec Tab) 20 mg PO DAILY [facility] Last Admin: 08/19/18 10:37 Dose: 20 mg Saccharomyces Boulardii (Florastor) 250 mg PO BID [facility] Last Admin: 08/19/18 10:37 Dose: 250 mg Trazodone HCl (Desyrel) 50 mg PO HS PRN PRN Reason: Insomnia Vitamin A (Vitamin A & D Oint Ud Foilpak) 1 ea EXT Q8 PRN PRN Reason: dry skin Last Admin: 08/12/18 10:29 Dose: 1 ea - Labs Labs: 08/19/18 07:32 08/19/18 07:32 PT 11.7 SECONDS (9.7-12.2) 08/01/18 16:06 INR 1.1 08/01/18 16:06 APTT 34 SECONDS (21-34) 08/01/18 16:06 Assessment and Plan - Assessment and Plan (Free Text) Assessment: Appears: Well, No Acute Distress - Head Exam Head Exam: ATRAUMATIC, NORMAL INSPECTION - Eye Exam Eye Exam: EOMI, Normal appearance - ENT Exam ENT Exam: Mucous Membranes Moist - Respiratory Exam Respiratory Exam: Clear to Ausculation Bilateral, NORMAL BREATHING PATTERN - Cardiovascular Exam Cardiovascular Exam: REGULAR RHYTHM, +S1, +S2 - GI/Abdominal Exam GI & Abdominal Exam: Soft, Normal Bowel Sounds. absent: Firm, Guarding, Rigid, Tenderness - Rectal Exam Additional comments: Rectal packing is in place and clean and currently dry - Extremities Exam Extremities Exam: Normal Inspection. absent: Calf Tenderness, Pedal Edema - Neurological Exam Neurological Exam: Alert, Awake, Oriented x3 - Psychiatric Exam Psychiatric exam: Anxious, Depressed - Skin Skin Exam: Normal Color Assessment & Plan: This is a 37 yo female with a past medical hx of recurrent hidradenitis suppurativa, gastritis, irritable bowel syndrome, and anxiety. Recurrent Hidradenitis Suppurativa of the groin/intergluteal cleft - Admitted for hidradenitis suppurativa of the intergluteal cleft bilaterally - s/p I&D on 08/02/18, 08/06/18, 08/08/[address] Siddiqui - Schedule for OR w/ Dr. Siddiqui on 08/09/18 - Hx of multiple I&D's - General surgery consulted, Dr. Siddiqui; recs appreciated - ID consulted, Dr. Gastelum; recs appreciated - Groin wound on at last admission grew: Pseudomonas, E. coli, Proteus, and Klebsiella *Of note, on previous admissions, cultures have grown Acinetobacter Baumannii, E. Coli, Pseudomonas, Proteus Mirabilis - Wound cx (08/05/18): + ecoli ESBL * Patient has VRE * Daptomycin and Meropenem on board; sensitive to Linezolid as well - Medications: * Merrem 500mg IV Q8h (active since 08/08/18) * Daptomycin for VRE (Initiated 08/11/18) * sensitive to linezolid * Morphine 6mg IV Q4 prn>>> changed to q 3 prn IBS (irritable bowel syndrome) - Chronic Diarrhea/ Constipation - Continue Home Bentyl 10mg po q6h - Milk of mag 30ml PO daily prn - Colace 100mg PO BID Allergic urticaria - Continue Home Atarax 50mg po q8 Psychiatric disorder Anxiety and depression: * Continue Home Xanax 1mg po bid - Psychiatrist consulted, Dr King; rec lexapro 5mg daily * As per psychiatry documentation, patient refused Prophylactic measure - DVT: SCDs - Protonix 20mg PO daily - Florastor 250mg po bid - PT - Patient will ultimately need electrolysis for removal of hair follicles to prevent future abscesses from hidradenitis; patient is aware and has been planning to do for some time Awaiting clearance from Dr. Siddiqui for discharge All medical management as per Dr. Diehl
[2018-08-19] MEDS: Enoxaparin 40 mg Syringe SC SCH (15:11)
[2018-08-19] MEDS: DAPTOmycin 600 MG in Sodium Chloride 0.9% 100 ML IV SCH (18:15)
[2018-08-20] MEDS: Meropenem 500 MG in Sodium Chloride 0.9% 100 ML IVPB SCH ×3 (00:28→17:23)
[2018-08-20] MEDS: Morphine 4 MG/ML VIAL IVP PRN ×4 (00:55→19:28)
[2018-08-20] MEDS: oxyCODONE 5 mg Immediate Release Tab PO PRN ×2 (07:17→21:37)
[2018-08-20 08:38] LABS: BASO % 0.8 % (0.0-2.0); EOS # 0.4 K/uL (0.0-0.7); EOS % 6.3 % (0.0-4.0); HEMOGLOBIN 8.7 g/dL (11.0-16.0); LYMPH % 48.1 % (20.0-40.0); MEAN CELL VOLUME 85.1 fL (81.0-99.0); MEAN CORPUSCULAR HEMOGLOBIN 28.2 pg (27.0-31.0); MEAN CORPUSCULAR HGB CONC 33.2 g/dL (33.0-37.0); MEAN PLATELET VOLUME 7.7 fL (7.2-11.7); MONO # 0.7 K/uL (0.0-0.8); MONO % 10.9 % (0.0-10.0); NEUT # 2.1 K/uL (1.8-7.0); NEUT % 33.9 % (50.0-75.0); NRBC % 0.3 % (0.0-2.0); RBC 3.07 Mil/uL (3.80-5.20); WHITE BLOOD COUNT 6.2 K/uL (4.8-10.8)
[2018-08-20 08:55] LABS: ALBUMIN 3.5 g/dL (3.5-5.0); ALT/SGPT 68 U/L (9-52); AST/SGOT 48 U/L (14-36); BLOOD UREA NITROGEN 12 mg/dL (7-17); CALCIUM 8.5 mg/dl (8.6-10.4); GFR NON-AFRICAN AMERICAN > 60
--- NOTE | 2018-08-20 09:11 | CP.PCM.PN ---
Subjective - Date & Time of Evaluation Date of Evaluation: 08/20/18 Time of Evaluation: 08:00 - Subjective Subjective: Medicine Note for Dr. Diehl This patient was seen and examined at bedside this AM. Patient continues to complain about pain at her wound site. Patient denies fevers/chills, chest pain, shortness of breath, headache, diarrhea or constipation. Objective - Vital Signs/Intake and Output Vital Signs (last 24 hours): Temp Pulse Resp BP Pulse Ox 97.7 F 69 18 108/74 98 08/20/18 07:00 08/20/18 07:00 08/20/18 07:00 08/20/18 07:00 08/20/18 07:00 - Medications Medications: Current Medications Alprazolam (Xanax) 1 mg PO BID PRN PRN Reason: Anxiety Last Admin: 08/19/18 23:45 Dose: 1 mg Bacitracin (Bacitracin) 1 ea TOP BID PRN PRN Reason: APPLY TO GROIN Dicyclomine HCl (Bentyl) 10 mg PO Q6 ROGERIO Last Admin: 08/20/18 07:15 Dose: 10 mg Docusate Sodium (Colace) 100 mg PO BID [facility] Last Admin: 08/19/18 17:02 Dose: 100 mg Enoxaparin Sodium (Lovenox) 40 mg SC Q24H ROGERIO Last Admin: 08/19/18 15:11 Dose: Not Given Gabapentin (Neurontin) 300 mg PO BID [facility] Last Admin: 08/19/18 17:02 Dose: 300 mg Hydroxyzine HCl (Atarax) 50 mg PO Q8 PRN PRN Reason: Allergy symptoms Last Admin: 08/20/18 00:55 Dose: 50 mg Meropenem 500 mg/ Sodium (Chloride) 100 mls @ 100 mls/hr IVPB Q8H ROGERIO; Protocol Last Admin: 08/20/18 00:28 Dose: 100 mls/hr Daptomycin 600 mg/ Sodium (Chloride) 100 mls @ 100 mls/hr IV Q24H ROGERIO; Protocol Stop: 08/23/18 18:01 Last Admin: 08/19/18 18:15 Dose: 100 mls/hr Lactulose (Enulose) 20 gm PO Q12H PRN PRN Reason: Constipatoin Magnesium Hydroxide (Milk Of Magnesia) 30 ml PO DAILY PRN PRN Reason: Constipation Morphine Sulfate (Morphine) 6 mg IVP Q3 PRN PRN Reason: Pain, severe (8-10) Last Admin: 08/20/18 04:27 Dose: 6 mg Oxycodone HCl (Oxycodone Immediate Release Tab) 5 mg PO Q6 PRN PRN Reason: Pain, moderate (4-7) Last Admin: 08/20/18 07:17 Dose: 5 mg Pantoprazole Sodium (Protonix Ec Tab) 20 mg PO DAILY [facility] Last Admin: 08/19/18 10:37 Dose: 20 mg Saccharomyces Boulardii (Florastor) 250 mg PO BID [facility] Last Admin: 08/19/18 17:02 Dose: 250 mg Trazodone HCl (Desyrel) 50 mg PO HS PRN PRN Reason: Insomnia Vitamin A (Vitamin A & D Oint Ud Foilpak) 1 ea EXT Q8 PRN PRN Reason: dry skin Last Admin: 08/12/18 10:29 Dose: 1 ea - Labs Labs: 08/20/18 08:20 08/20/18 08:20 PT 11.7 SECONDS (9.7-12.2) 08/01/18 16:06 INR 1.1 08/01/18 16:06 APTT 34 SECONDS (21-34) 08/01/18 16:06 - Constitutional Appears: Well, No Acute Distress - Head Exam Head Exam: ATRAUMATIC, NORMAL INSPECTION - Eye Exam Eye Exam: EOMI, Normal appearance - ENT Exam ENT Exam: Mucous Membranes Moist - Respiratory Exam Respiratory Exam: Clear to Ausculation Bilateral, NORMAL BREATHING PATTERN - Cardiovascular Exam Cardiovascular Exam: REGULAR RHYTHM, +S1, +S2 - GI/Abdominal Exam GI & Abdominal Exam: Soft, Normal Bowel Sounds. absent: Tenderness - Extremities Exam Extremities Exam: Normal Inspection - Neurological Exam Neurological Exam: Alert, Awake, Oriented x3 - Psychiatric Exam Psychiatric exam: Anxious, Depressed - Skin Additional comments: Rectal packing is in place and clean and currently dry Assessment and Plan - Assessment and Plan (Free Text) Assessment: Assessment & Plan: This is a 37 yo female with a past medical hx of recurrent hidradenitis suppurativa, gastritis, irritable bowel syndrome, and anxiety. Recurrent Hidradenitis Suppurativa of the groin/intergluteal cleft - Admitted for hidradenitis suppurativa of the intergluteal cleft bilaterally - s/p I&D on 08/02/18, 08/06/18, 08/08/[address] Siddiqui - Schedule for OR w/ Dr. Siddiqui on 08/09/18 - Hx of multiple I&D's - General surgery consulted, Dr. Siddiqui; recs appreciated - OR with Dr. Siddiqui 08/20/18 - ID consulted, Dr. Gastelum; recs appreciated - Groin wound on at last admission grew: Pseudomonas, E. coli, Proteus, and Klebsiella *Of note, on previous admissions, cultures have grown Acinetobacter Baumannii, E. Coli, Pseudomonas, Proteus Mirabilis - Wound cx (08/05/18): + ecoli ESBL * Patient has VRE * Daptomycin and Meropenem on board; sensitive to Linezolid as well - Medications: * Merrem 500mg IV Q8h (active since 08/08/18) * Daptomycin for VRE (Initiated 08/11/18) * sensitive to linezolid * Morphine 6mg IV Q4 prn>>> changed to q 3 prn IBS (irritable bowel syndrome) - Chronic Diarrhea/ Constipation - Continue Home Bentyl 10mg po q6h - Milk of mag 30ml PO daily prn - Colace 100mg PO BID Allergic urticaria - Continue Home Atarax 50mg po q8 Psychiatric disorder Anxiety and depression: * Continue Home Xanax 1mg po bid - Psychiatrist consulted, Dr King; rec lexapro 5mg daily * As per psychiatry documentation, patient refused Prophylactic measure - DVT: SCDs - Protonix 20mg PO daily - Florastor 250mg po bid - PT - Patient will ultimately need electrolysis for removal of hair follicles to prevent future abscesses from hidradenitis; patient is aware and has been planni ng to do for some time All medical management as per Dr. Diehl
[2018-08-20] MEDS: Pantoprazole 20 mg EC Tab PO SCH (11:59)
[2018-08-20] MEDS: Saccharomyces Boulardi 250 mg Cap PO SCH ×2 (11:59→18:57)
[2018-08-20] MEDS ORDERED: Propofol 10 mg/ml Inj (20 ML) ONE (14:25)
[2018-08-20] MEDS ORDERED: Midazolam 2 MG/2 ML VIAL ONE (14:25)
[2018-08-20] MEDS ORDERED: Lidocaine Hydrochloride 0 ML INJ ONE (14:28)
[2018-08-20] MEDS ORDERED: HYDROmorphone 0.5 mg/0.5 ml ISec IVP PRN (15:25)
[2018-08-20] MEDS: Enoxaparin 40 mg Syringe SC SCH (16:00)
[2018-08-20] MEDS: DAPTOmycin 600 MG in Sodium Chloride 0.9% 100 ML IV SCH (18:58)
[2018-08-21] MEDS: Meropenem 500 MG in Sodium Chloride 0.9% 100 ML IVPB SCH ×3 (00:10→17:21)
[2018-08-21] MEDS: Morphine 4 MG/ML VIAL IVP PRN ×4 (01:09→21:32)
--- NOTE | 2018-08-21 03:00 | OP ---
PROCEDURE DATE: 08/01/2018 PREOPERATIVE DIAGNOSES: Open sacral wound and painful sacral mass. POSTOPERATIVE DIAGNOSES: Open sacral wound and painful sacral mass. PROCEDURE PERFORMED: Debridement and re-drainage of open sacral wound with excision of sacral mass. SURGEON: Nitish Siddiqui MD ANESTHESIA: General. BLOOD LOSS: 30 mL. POSTOPERATIVE CONDITION: Stable. INDICATIONS FOR SURGERY: A 38-year-old female status post debridement of an open sacral and rectal wound, who had a pelvic and retroperitoneal abscess. The wound has been healing well with increased pain and bleeding. She was taken back to the operating room after discovering a mass within the wound. PROCEDURE IN DETAIL: The patient was taken to the operating room, placed in the prone position. IV sedation and local anesthesia was administered after the sacral area was prepped and draped. A sacral polyp was noted and excised. Bleeding was controlled using the Bovie. A partial tissue flap closure was performed by mobilizing full-thickness flaps, making counter incisions and closing loosely with heavy Monocryl. The central portion of wound was packed open with saline gauze. The patient tolerated the procedure well, returned to recovery room in stable condition. Nitish Siddiqui MD
[2018-08-21] MEDS: oxyCODONE 5 mg Immediate Release Tab PO PRN (03:51)
--- NOTE | 2018-08-21 07:30 | CP.PCM.PN ---
Subjective - Date & Time of Evaluation Date of Evaluation: 08/21/18 Time of Evaluation: 08:00 - Subjective Subjective: Medicine Progress Note for Dr. Diehl This patient was seen and examined at bedside this AM. Patient continues to complain about pain at her wound site. Patient states her ears feel clogged. Patient denies fevers/chills, chest pain, shortness of breath, headache, diarrhea, constipation or ear pain. Objective - Vital Signs/Intake and Output Vital Signs (last 24 hours): Temp Pulse Resp BP Pulse Ox 97.9 F 64 20 99/60 L 98 08/20/18 23:00 08/20/18 23:00 08/20/18 23:00 08/20/18 23:00 08/20/18 23:00 Intake and Output: 08/21/18 08/21/18 06:59 18:59 Intake Total 550 Balance 550 - Medications Medications: Current Medications Alprazolam (Xanax) 1 mg PO BID PRN PRN Reason: Anxiety Last Admin: 08/20/18 20:39 Dose: 1 mg Bacitracin (Bacitracin) 1 ea TOP BID PRN PRN Reason: APPLY TO GROIN Dicyclomine HCl (Bentyl) 10 mg PO Q6 [facility] Last Admin: 08/21/18 00:10 Dose: 10 mg Docusate Sodium (Colace) 100 mg PO BID [facility] Last Admin: 08/20/18 18:59 Dose: Not Given Enoxaparin Sodium (Lovenox) 40 mg SC Q24H [facility] Last Admin: 08/20/18 16:00 Dose: 40 mg Gabapentin (Neurontin) 300 mg PO BID [facility] Last Admin: 08/20/18 18:58 Dose: 300 mg Hydroxyzine HCl (Atarax) 50 mg PO Q8 PRN PRN Reason: Allergy symptoms Last Admin: 08/21/18 01:09 Dose: 50 mg Meropenem 500 mg/ Sodium (Chloride) 100 mls @ 100 mls/hr IVPB Q8H ROGERIO; Protocol Last Admin: 08/21/18 00:10 Dose: 100 mls/hr Daptomycin 600 mg/ Sodium (Chloride) 100 mls @ 100 mls/hr IV Q24H ROGERIO; Protocol Stop: 08/23/18 18:01 Last Admin: 08/20/18 18:58 Dose: 100 mls/hr Lactulose (Enulose) 20 gm PO Q12H PRN PRN Reason: Constipatoin Magnesium Hydroxide (Milk Of Magnesia) 30 ml PO DAILY PRN PRN Reason: Constipation Morphine Sulfate (Morphine) 6 mg IVP Q3 PRN PRN Reason: Pain, severe (8-10) Last Admin: 08/21/18 05:56 Dose: 6 mg Oxycodone HCl (Oxycodone Immediate Release Tab) 5 mg PO Q6 PRN PRN Reason: Pain, moderate (4-7) Last Admin: 08/21/18 03:51 Dose: 5 mg Pantoprazole Sodium (Protonix Ec Tab) 20 mg PO DAILY [facility] Last Admin: 08/20/18 11:59 Dose: 20 mg Saccharomyces Boulardii (Florastor) 250 mg PO BID [facility] Last Admin: 08/20/18 18:57 Dose: 250 mg Trazodone HCl (Desyrel) 50 mg PO HS PRN PRN Reason: Insomnia Vitamin A (Vitamin A & D Oint Ud Foilpak) 1 ea EXT Q8 PRN PRN Reason: dry skin Last Admin: 08/12/18 10:29 Dose: 1 ea - Labs Labs: 08/20/18 08:20 08/20/18 08:20 PT 11.7 SECONDS (9.7-12.2) 08/01/18 16:06 INR 1.1 08/01/18 16:06 APTT 34 SECONDS (21-34) 08/01/18 16:06 - Constitutional Appears: In Acute Distress - Head Exam Head Exam: ATRAUMATIC, NORMAL INSPECTION - Eye Exam Eye Exam: EOMI, Normal appearance - ENT Exam ENT Exam: Mucous Membranes Moist, Normal External Ear Exam, TM's Normal Bilaterally (bilateral ear impacted with cerumen) - Respiratory Exam Respiratory Exam: Clear to Ausculation Bilateral, NORMAL BREATHING PATTERN - Cardiovascular Exam Cardiovascular Exam: REGULAR RHYTHM, +S1, +S2 - GI/Abdominal Exam GI & Abdominal Exam: Soft, Normal Bowel Sounds. absent: Tenderness Additional comments: obese abdomen - Extremities Exam Extremities Exam: Normal Inspection - Neurological Exam Neurological Exam: Alert, Awake, Oriented x3 - Psychiatric Exam Psychiatric exam: Anxious, Depressed - Skin Additional comments: Rectal packing is in place and clean and currently dry Assessment and Plan - Assessment and Plan (Free Text) Assessment: Assessment & Plan: This is a 37 yo female with a past medical hx of recurrent hidradenitis suppurativa, gastritis, irritable bowel syndrome, and anxiety. Recurrent Hidradenitis Suppurativa of the groin/intergluteal cleft - Admitted for hidradenitis suppurativa of the intergluteal cleft bilaterally - s/p I&D on 08/02/18, 08/06/18, 08/08/[address] Siddiqui - Schedule for OR w/ Dr. Siddiqui on 08/09/18 - Hx of multiple I&D's - General surgery consulted, Dr. Siddiqui; recs appreciated - OR with Dr. Siddiqui 08/21/18 - s/p debridement 08/20/18 - ID consulted, Dr. Gastelum; recs appreciated - Groin wound on at last admission grew: Pseudomonas, E. coli, Proteus, and Klebsiella *Of note, on previous admissions, cultures have grown Acinetobacter Baumannii, E. Coli, Pseudomonas, Proteus Mirabilis - Wound cx (08/05/18): + ecoli ESBL * Patient has VRE * Daptomycin and Meropenem on board; sensitive to Linezolid as well - Medications: * Merrem 500mg IV Q8h (active since 08/08/18) * Daptomycin for VRE (Initiated 08/11/18) * sensitive to linezolid * Morphine 6mg IV Q4 prn>>> changed to q 3 prn IBS (irritable bowel syndrome) - Chronic Diarrhea/ Constipation - Continue Home Bentyl 10mg po q6h - Milk of mag 30ml PO daily prn - Colace 100mg PO BID Allergic urticaria - Continue Home Atarax 50mg po q8 Psychiatric disorder Anxiety and depression: * Continue Home Xanax 1mg po bid - Psychiatrist consulted, Dr King; rec lexapro 5mg daily * As per psychiatry documentation, patient refused Bilateral ear impacted with cerumen - Cerumen disimpaction as an outpatient - Patient instructed not to insert q-tip Prophylactic measure - DVT: SCDs - Protonix 20mg PO daily - Florastor 250mg po bid - PT - Patient will ultimately need electrolysis for removal of hair follicles to prevent future abscesses from hidradenitis; patient is aware and has been planning to do for some time All medical management as per Dr. Diehl
[2018-08-21 07:59] LABS: BASO % 0.9 % (0.0-2.0); EOS # 0.3 K/uL (0.0-0.7); EOS % 5.6 % (0.0-4.0); HEMOGLOBIN 8.7 g/dL (11.0-16.0); LYMPH # 2.4 K/uL (1.0-4.3); LYMPH % 46.6 % (20.0-40.0); MEAN CELL VOLUME 84.8 fL (81.0-99.0); MEAN PLATELET VOLUME 7.4 fL (7.2-11.7); MONO # 0.4 K/uL (0.0-0.8); MONO % 8.5 % (0.0-10.0); NEUT % 38.4 % (50.0-75.0); NRBC % 0.1 % (0.0-2.0); RBC 3.1 Mil/uL (3.80-5.20); RED CELL DISTRIBUTION WIDTH 14.2 % (11.5-14.5); WHITE BLOOD COUNT 5.2 K/uL (4.8-10.8)
[2018-08-21 08:20] LABS: ALB/GLOB RATIO 1.1 (1.0-2.1); ALBUMIN 3.7 g/dL (3.5-5.0); ALT/SGPT 84 U/L (9-52); AST/SGOT 74 U/L (14-36); BLOOD UREA NITROGEN 14 mg/dL (7-17); CALCIUM 8.9 mg/dl (8.6-10.4); GFR NON-AFRICAN AMERICAN > 60
[2018-08-21] MEDS: Saccharomyces Boulardi 250 mg Cap PO SCH ×2 (09:10→17:29)
[2018-08-21] MEDS: Pantoprazole 20 mg EC Tab PO SCH (09:10)
[2018-08-21] MEDS ORDERED: Midazolam 2 MG/2 ML VIAL ONE ×2 (13:48→14:09)
[2018-08-21] MEDS ORDERED: Propofol 10 mg/ml Inj (20 ML) ONE (13:48)
[2018-08-21] MEDS ORDERED: Lidocaine Hydrochloride 10 ML INJ ONE (14:04)
[2018-08-21] MEDS ORDERED: Lidocaine Hydrochloride 20 ML INJ ONE (14:17)
[2018-08-21] MEDS: Enoxaparin 40 mg Syringe SC SCH (17:21)
[2018-08-21] MEDS: DAPTOmycin 600 MG in Sodium Chloride 0.9% 100 ML IV SCH (17:36)
[2018-08-22] MEDS: Meropenem 500 MG in Sodium Chloride 0.9% 100 ML IVPB SCH ×3 (00:04→17:00)
--- NOTE | 2018-08-22 00:43 | OP ---
PROCEDURE DATE: 08/20/2018 PREOPERATIVE DIAGNOSIS: Large infected rectal and sacral wound. POSTOPERATIVE DIAGNOSIS: Large infected rectal and sacral wound. PROCEDURE PERFORMED: Re-drainage of large rectal and sacral wound with debridement, repair of sacral blood vessel and placement of a Dermagraft. SURGEON: Nitish Siddiqui MD ANESTHESIA: Local sedation. ESTIMATED BLOOD LOSS: 30 mL. POSTOPERATIVE CONDITION: Stable. INDICATIONS FOR SURGERY This is a 38-year-old female, status post multiple fractures of the groin and rectum who had a recurrent infection, admitted 2 weeks ago and underwent drainage of a pelvic abscess with a complex fistulotomy. The wound became infected postoperatively and it has been treated with IV antibiotics and was taken back to the OR yesterday for reassessment of the wound, underwent cleaning and drainage in preparation for a new Dermagraft today. DESCRIPTION OF PROCEDURE: The patient was taken to the operating room, placed in the prone position, IV sedation was administered. The buttocks were taped over. The wounds were prepped and draped and anesthetized with 1% lidocaine. The wounds were again aggressively debrided. Bleeding was controlled using the Bovie. Larger blood vessel was repaired. It was then pulse irrigated and any remaining collections were drained and cultured. Any remaining bleeding was controlled using the Bovie. A Dermagraft was then fashioned, placed over the wound, and sutured in place with interrupted 4-0 Monocryl sutures. The wounds were dressed sterilely. The patient tolerated the procedure well. Returned to recovery room in stable condition. Nitish Siddiqui MD
[2018-08-22] MEDS: Lactated Ringer's 1,000 ML IV SCH ×2 (01:14→11:19)
[2018-08-22] MEDS: Morphine 4 MG/ML VIAL IVP PRN ×4 (01:31→22:25)
[2018-08-22] MEDS: oxyCODONE 5 mg Immediate Release Tab PO PRN ×2 (04:29→10:46)
[2018-08-22 07:53] LABS: BASO % 0.8 % (0.0-2.0); EOS # 0.3 K/uL (0.0-0.7); EOS % 5.3 % (0.0-4.0); HEMOGLOBIN 8.8 g/dL (11.0-16.0); LYMPH # 2.7 K/uL (1.0-4.3); MEAN CELL VOLUME 84.1 fL (81.0-99.0); MEAN CORPUSCULAR HEMOGLOBIN 28.8 pg (27.0-31.0); MEAN CORPUSCULAR HGB CONC 34.2 g/dL (33.0-37.0); MEAN PLATELET VOLUME 7.5 fL (7.2-11.7); MONO # 0.5 K/uL (0.0-0.8); MONO % 9.7 % (0.0-10.0); NEUT # 1.7 K/uL (1.8-7.0); NEUT % 33.2 % (50.0-75.0); RBC 3.05 Mil/uL (3.80-5.20); RED CELL DISTRIBUTION WIDTH 14.7 % (11.5-14.5); WHITE BLOOD COUNT 5.3 K/uL (4.8-10.8)
[2018-08-22 08:55] LABS: ALB/GLOB RATIO 1.1 (1.0-2.1); ALBUMIN 3.7 g/dL (3.5-5.0); ALT/SGPT 82 U/L (9-52); AST/SGOT 60 U/L (14-36); BLOOD UREA NITROGEN 11 mg/dL (7-17); CALCIUM 8.9 mg/dl (8.6-10.4); GFR NON-AFRICAN AMERICAN > 60
--- NOTE | 2018-08-22 09:22 | CP.PCM.PN ---
Subjective - Date & Time of Evaluation Date of Evaluation: 08/22/18 Time of Evaluation: 08:00 - Subjective Subjective: Medicine Progress Note for Dr. Diehl This patient was seen and examined at bedside this AM. Patient continues to complain about pain at her wound site. Patient states she has had 4 episodes of diarrhea this morning. Patient denies fevers/chills, chest pain, shortness of breath or headache. Objective - Vital Signs/Intake and Output Vital Signs (last 24 hours): Temp Pulse Resp BP Pulse Ox 97.8 F 112 H 20 117/74 96 08/22/18 08:00 08/22/18 08:00 08/22/18 08:00 08/22/18 08:00 08/22/18 08:00 Intake and Output: 08/22/18 08/22/18 06:59 18:59 Intake Total 700 200 Balance 700 200 - Medications Medications: Current Medications Alprazolam (Xanax) 1 mg PO BID PRN PRN Reason: Anxiety Last Admin: 08/22/18 02:54 Dose: 1 mg Bacitracin (Bacitracin) 1 ea TOP BID PRN PRN Reason: APPLY TO GROIN Dicyclomine HCl (Bentyl) 10 mg PO Q6 [facility] Last Admin: 08/22/18 06:29 Dose: 10 mg Docusate Sodium (Colace) 100 mg PO BID [facility] Last Admin: 08/21/18 17:23 Dose: Not Given Enoxaparin Sodium (Lovenox) 40 mg SC Q24H [facility] Last Admin: 08/21/18 17:21 Dose: 40 mg Gabapentin (Neurontin) 300 mg PO BID [facility] Last Admin: 08/21/18 17:22 Dose: 300 mg Hydroxyzine HCl (Atarax) 50 mg PO Q8 PRN PRN Reason: Allergy symptoms Last Admin: 08/22/18 01:31 Dose: 50 mg Meropenem 500 mg/ Sodium (Chloride) 100 mls @ 100 mls/hr IVPB Q8H [facility]; Protocol Last Admin: 08/22/18 00:04 Dose: 100 mls/hr Daptomycin 600 mg/ Sodium (Chloride) 100 mls @ 100 mls/hr IV Q24H [facility]; Protocol Stop: 08/23/18 18:01 Last Admin: 08/21/18 17:36 Dose: 100 mls/hr Lactated Ringer's (Lactated Ringer's) 1,000 mls @ 100 mls/hr IV .Q10H [facility] Last Admin: 08/22/18 01:14 Dose: 100 mls/hr Lactulose (Enulose) 20 gm PO Q12H PRN PRN Reason: Constipatoin Magnesium Hydroxide (Milk Of Magnesia) 30 ml PO DAILY PRN PRN Reason: Constipation Morphine Sulfate (Morphine) 6 mg IVP Q3 PRN PRN Reason: Pain, severe (8-10) Last Admin: 08/22/18 06:37 Dose: 6 mg Oxycodone HCl (Oxycodone Immediate Release Tab) 5 mg PO Q6 PRN PRN Reason: Pain, moderate (4-7) Last Admin: 08/22/18 04:29 Dose: 5 mg Pantoprazole Sodium (Protonix Ec Tab) 20 mg PO DAILY [facility] Last Admin: 08/21/18 09:10 Dose: 20 mg Saccharomyces Boulardii (Florastor) 250 mg PO BID [facility] Last Admin: 08/21/18 17:29 Dose: 250 mg Trazodone HCl (Desyrel) 50 mg PO HS PRN PRN Reason: Insomnia Vitamin A (Vitamin A & D Oint Ud Foilpak) 1 ea EXT Q8 PRN PRN Reason: dry skin Last Admin: 08/12/18 10:29 Dose: 1 ea - Labs Labs: 08/22/18 07:42 08/22/18 07:42 PT 11.7 SECONDS (9.7-12.2) 08/01/18 16:06 INR 1.1 08/01/18 16:06 APTT 34 SECONDS (21-34) 08/01/18 16:06 - Constitutional Appears: In Acute Distress - Head Exam Head Exam: ATRAUMATIC, NORMAL INSPECTION - Eye Exam Eye Exam: EOMI, Normal appearance - ENT Exam ENT Exam: Mucous Membranes Moist. absent: TM's Normal Bilaterally (bilateral ear impacted with cerumen) - Respiratory Exam Respiratory Exam: Clear to Ausculation Bilateral, NORMAL BREATHING PATTERN - Cardiovascular Exam Cardiovascular Exam: REGULAR RHYTHM, +S1, +S2 - GI/Abdominal Exam GI & Abdominal Exam: Soft, Normal Bowel Sounds. absent: Tenderness Additional comments: obese abdomen - Neurological Exam Neurological Exam: Alert, Awake, Oriented x3 - Psychiatric Exam Psychiatric exam: Anxious, Depressed - Skin Additional comments: Rectal packing is in place and clean and currently dry Assessment and Plan - Assessment and Plan (Free Text) Assessment: Assessment & Plan: This is a 37 yo female with a past medical hx of recurrent hidradenitis suppurativa, gastritis, irritable bowel syndrome, and anxiety. Recurrent Hidradenitis Suppurativa of the groin/intergluteal cleft - Admitted for hidradenitis suppurativa of the intergluteal cleft bilaterally - s/p I&D on 08/02/18, 08/06/18, 08/08/[address] Siddiqui - Schedule for OR w/ Dr. Siddiqui on 08/09/18 - Hx of multiple I&D's - General surgery consulted, Dr. Siddiqui; recs appreciated - s/p debridement 08/21/18 - s/p debridement 08/20/18 - ID consulted, Dr. Gastelum; recs appreciated - Groin wound on at last admission grew: Pseudomonas, E. coli, Proteus, and Klebsiella *Of note, on previous admissions, cultures have grown Acinetobacter Baumannii, E. Coli, Pseudomonas, Proteus Mirabilis - Wound cx (08/05/18): + ecoli ESBL * Patient has VRE * Daptomycin and Meropenem on board; sensitive to Linezolid as well - Medications: * Merrem 500mg IV Q8h (active since 08/08/18) * Daptomycin for VRE (Initiated 08/11/18) * sensitive to linezolid * Morphine 6mg IV Q4 prn>>> changed to q 3 prn Diarrhea - f/u cdiff, stool leukocytes, stool culture - Patient given Imodium once IBS (irritable bowel syndrome) - Chronic Diarrhea/ Constipation - Continue Home Bentyl 10mg po q6h - Milk of mag 30ml PO daily prn - held - Colace 100mg PO BID - held Allergic urticaria - Continue Home Atarax 50mg po q8 Psychiatric disorder Anxiety and depression: * Continue Home Xanax 1mg po bid - Psychiatrist consulted, Dr King; rec lexapro 5mg daily * As per psychiatry documentation, patient refused Bilateral ear impacted with cerumen - Cerumen disimpaction as an outpatient - Patient instructed not to insert q-tip Prophylactic measure - DVT: SCDs - Protonix 20mg PO daily - Florastor 250mg po bid - PT - Patient will ultimately need electrolysis for removal of hair follicles to prevent future abscesses from hidradenitis; patient is aware and has been planning to do for some time All medical management as per Dr. Diehl
[2018-08-22] MEDS: Pantoprazole 20 mg EC Tab PO SCH (10:46)
[2018-08-22] MEDS: Saccharomyces Boulardi 250 mg Cap PO SCH ×2 (10:46→17:01)
[2018-08-22] MEDS: Bacitracin 500 Units/gm Oint Foilpak UD TOP PRN (12:41)
[2018-08-22] MEDS: Enoxaparin 40 mg Syringe SC SCH (16:59)
[2018-08-22] MEDS: DAPTOmycin 600 MG in Sodium Chloride 0.9% 100 ML IV SCH (18:09)
[2018-08-22 19:57] LABS: C DIFF TOXIN A B NEGATIVE (NEGATIVE)
[2018-08-22 20:41] LABS: FECAL LEUKOCYTES NEGATIVE (NEGATIVE)
[2018-08-23] MEDS: Meropenem 500 MG in Sodium Chloride 0.9% 100 ML IVPB SCH ×3 (00:05→17:30)
[2018-08-23] MEDS: Morphine 4 MG/ML VIAL IVP PRN ×5 (02:19→22:40)
[2018-08-23] MEDS: oxyCODONE 5 mg Immediate Release Tab PO PRN (07:46)
[2018-08-23] MEDS: Saccharomyces Boulardi 250 mg Cap PO SCH ×2 (10:11→17:30)
[2018-08-23] MEDS: Lactated Ringer's 1,000 ML IV SCH ×2 (10:11→21:43)
[2018-08-23] MEDS: Pantoprazole 20 mg EC Tab PO SCH (10:12)
--- NOTE | 2018-08-23 10:16 | CP.PCM.PN ---
Subjective - Date & Time of Evaluation Date of Evaluation: 08/23/18 Time of Evaluation: 10:00 - Subjective Subjective: Medicine Progress Note for Dr. Diehl This patient was seen and examined at bedside, while resting comfortably in bed. Patient continues to complain about pain at her wound site. Patient denies fevers/chills, chest pain, shortness of breath or headache, nausea, vomiting, abdominal pain. Patient does have loose bowel movement. Objective - Vital Signs/Intake and Output Vital Signs (last 24 hours): Temp Pulse Resp BP Pulse Ox 97.8 F 73 20 119/68 98 08/23/18 08:03 08/23/18 08:03 08/23/18 08:03 08/23/18 08:03 08/23/18 08:03 Intake and Output: 08/23/18 08/23/18 06:59 18:59 Intake Total 700 Balance 700 - Medications Medications: Current Medications Alprazolam (Xanax) 1 mg PO BID PRN PRN Reason: Anxiety Last Admin: 08/22/18 15:16 Dose: 1 mg Bacitracin (Bacitracin) 1 ea TOP BID PRN PRN Reason: APPLY TO GROIN Last Admin: 08/22/18 12:41 Dose: 1 ea Dicyclomine HCl (Bentyl) 10 mg PO Q6 [facility] Last Admin: 08/23/18 07:30 Dose: 10 mg Enoxaparin Sodium (Lovenox) 40 mg SC Q24H [facility] Last Admin: 08/22/18 16:59 Dose: 40 mg Famotidine (Pepcid) 20 mg PO BID [facility] Last Admin: 08/22/18 18:08 Dose: 20 mg Gabapentin (Neurontin) 300 mg PO BID [facility] Last Admin: 08/22/18 17:01 Dose: 300 mg Hydroxyzine HCl (Atarax) 50 mg PO Q8 PRN PRN Reason: Allergy symptoms Last Admin: 08/23/18 02:19 Dose: 50 mg Meropenem 500 mg/ Sodium (Chloride) 100 mls @ 100 mls/hr IVPB Q8H [facility]; Protocol Last Admin: 08/23/18 00:05 Dose: 100 mls/hr Daptomycin 600 mg/ Sodium (Chloride) 100 mls @ 100 mls/hr IV Q24H [facility]; Protocol Stop: 08/23/18 18:01 Last Admin: 08/22/18 18:09 Dose: 100 mls/hr Lactated Ringer's (Lactated Ringer's) 1,000 mls @ 100 mls/hr IV .Q10H [facility] Last Admin: 08/22/18 11:19 Dose: Not Given Morphine Sulfate (Morphine) 6 mg IVP Q3 PRN PRN Reason: Pain, severe (8-10) Last Admin: 08/23/18 05:54 Dose: 6 mg Oxycodone HCl (Oxycodone Immediate Release Tab) 5 mg PO Q6 PRN PRN Reason: Pain, moderate (4-7) Last Admin: 08/23/18 07:46 Dose: 5 mg Pantoprazole Sodium (Protonix Ec Tab) 20 mg PO DAILY [facility] Last Admin: 08/22/18 10:46 Dose: 20 mg Saccharomyces Boulardii (Florastor) 250 mg PO BID [facility] Last Admin: 08/22/18 17:01 Dose: 250 mg Trazodone HCl (Desyrel) 50 mg PO HS PRN PRN Reason: Insomnia Vitamin A (Vitamin A & D Oint Ud Foilpak) 1 ea EXT Q8 PRN PRN Reason: dry skin Last Admin: 08/12/18 10:29 Dose: 1 ea - Labs Labs: 08/22/18 07:42 08/22/18 07:42 PT 11.7 SECONDS (9.7-12.2) 08/01/18 16:06 INR 1.1 08/01/18 16:06 APTT 34 SECONDS (21-34) 08/01/18 16:06 - Constitutional Appears: Well, No Acute Distress - Head Exam Head Exam: ATRAUMATIC, NORMAL INSPECTION - Eye Exam Eye Exam: EOMI, Normal appearance - ENT Exam ENT Exam: Mucous Membranes Moist - Respiratory Exam Respiratory Exam: Clear to Ausculation Bilateral, NORMAL BREATHING PATTERN. absent: Decreased Breath Sounds, Rhonchi, Wheezes - Cardiovascular Exam Cardiovascular Exam: REGULAR RHYTHM, +S1, +S2 - GI/Abdominal Exam GI & Abdominal Exam: Soft, Normal Bowel Sounds Additional comments: obese abdomen - Extremities Exam Extremities Exam: Normal Inspection. absent: Calf Tenderness, Pedal Edema - Neurological Exam Neurological Exam: Alert, Awake, Oriented x3 - Skin Additional comments: Rectal packing is in place and clean and currently dry Assessment and Plan (1) Abscess Assessment & Plan: - Admitted for hidradenitis suppurativa of the intergluteal cleft bilaterally - s/p I&D on 08/02/18, 08/06/18, 08/08/[address] Siddiqui - Schedule for OR w/ Dr. Siddiqui on 08/09/18 - Hx of multiple I&D's - General surgery consulted, Dr. Siddiqui; recs appreciated - s/p debridement 08/21/18 - s/p debridement 08/20/18----> Gram negative elyse - ID consulted, Dr. Gastelum; recs appreciated - Groin wound on at last admission grew: Pseudomonas, E. coli, Proteus, and Klebsiella *Of note, on previous admissions, cultures have grown Acinetobacter Javier annii, E. Coli, Pseudomonas, Proteus Mirabilis - Wound cx (08/05/18): + ecoli ESBL * Patient has VRE * Daptomycin and Meropenem on board; sensitive to Linezolid as well - Medications: * Merrem 500mg IV Q8h (active since 08/08/18) * Daptomycin for VRE (Initiated 08/11/18) * sensitive to linezolid * Morphine 6mg IV Q4 prn>>> changed to q 3 prn Status: Acute (2) IBS (irritable bowel syndrome) Assessment & Plan: - Chronic Diarrhea/ Constipation - Continue Home Bentyl 10mg po q6h - Milk of mag 30ml PO daily prn - held - Colace 100mg PO BID - held Status: Acute (3) Diarrhea Assessment & Plan: C-difficile, Stool leukocytes: Negative Status: Acute (4) Allergic urticaria Assessment & Plan: - Continue Home Atarax 50mg po q8 Status: Resolved (5) Psychiatric disorder Assessment & Plan: Anxiety and depression: * Continue Home Xanax 1mg po bid - Psychiatrist consulted, Dr King; rec lexapro 5mg daily * As per psychiatry documentation, patient refused Status: Acute (6) Impacted cerumen of both ears Assessment & Plan: - Cerumen disimpaction as an outpatient - Patient instructed not to insert q-tip Status: Acute (7) Serum phosphate elevated Assessment & Plan: Phosphorus: 5.3---> 5.2 PTH intact: 27 Status: Acute (8) Prophylactic measure Assessment & Plan: - DVT: SCDs - Protonix 20mg PO daily - Florastor 250mg po bid - PT - Patient will ultimately need electrolysis for removal of hair follicles to prevent future abscesses from hidradenitis; patient is aware and has been planning to do for some time Disposition: Awaiting plans as per Dr. Siddiqui All medical management as per Dr. Diehl Status: Acute
[2018-08-23] MEDS: Magnesium Sulfate 1 gm in D5W 1 GM/100 ML BAG IVPB SCH ×2 (10:26→10:27)
[2018-08-23] MEDS ORDERED: Enoxaparin 40 mg Syringe SC ONE (17:30)
[2018-08-23] MEDS: DAPTOmycin 600 MG in Sodium Chloride 0.9% 100 ML IV SCH (17:49)
--- NOTE | 2018-08-23 18:56 | CP.PCM.PN ---
Subjective - Date & Time of Evaluation Date of Evaluation: 08/23/18 Time of Evaluation: 08:00 - Subjective Subjective: seen on rounds improving nad Objective - Vital Signs/Intake and Output Vital Signs (last 24 hours): Temp Pulse Resp BP Pulse Ox 98.3 F 75 20 117/74 99 08/23/18 15:20 08/23/18 15:20 08/23/18 15:20 08/23/18 15:20 08/23/18 15:20 Intake and Output: 08/23/18 08/23/18 06:59 18:59 Intake Total 700 800 Balance 700 800 - Medications Medications: Current Medications Alprazolam (Xanax) 1 mg PO BID PRN PRN Reason: Anxiety Last Admin: 08/23/18 11:58 Dose: 1 mg Bacitracin (Bacitracin) 1 ea TOP BID PRN PRN Reason: APPLY TO GROIN Last Admin: 08/22/18 12:41 Dose: 1 ea Dicyclomine HCl (Bentyl) 10 mg PO Q6 [facility] Last Admin: 08/23/18 17:30 Dose: 10 mg Famotidine (Pepcid) 20 mg PO BID [facility] Last Admin: 08/23/18 17:30 Dose: 20 mg Gabapentin (Neurontin) 300 mg PO BID [facility] Last Admin: 08/23/18 17:30 Dose: 300 mg Hydroxyzine HCl (Atarax) 50 mg PO Q8 PRN PRN Reason: Allergy symptoms Last Admin: 08/23/18 02:19 Dose: 50 mg Meropenem 500 mg/ Sodium (Chloride) 100 mls @ 100 mls/hr IVPB Q8H [facility]; Protocol Last Admin: 08/23/18 17:30 Dose: 100 mls/hr Lactated Ringer's (Lactated Ringer's) 1,000 mls @ 100 mls/hr IV .Q10H [facility] Last Admin: 08/23/18 10:11 Dose: 100 mls/hr Morphine Sulfate (Morphine) 6 mg IVP Q3 PRN PRN Reason: Pain, severe (8-10) Last Admin: 08/23/18 17:50 Dose: 6 mg Oxycodone HCl (Oxycodone Immediate Release Tab) 5 mg PO Q6 PRN PRN Reason: Pain, moderate (4-7) Last Admin: 08/23/18 07:46 Dose: 5 mg Pantoprazole Sodium (Protonix Ec Tab) 20 mg PO DAILY [facility] Last Admin: 08/23/18 10:12 Dose: 20 mg Saccharomyces Boulardii (Florastor) 250 mg PO BID [facility] Last Admin: 08/23/18 17:30 Dose: 250 mg Trazodone HCl (Desyrel) 50 mg PO HS PRN PRN Reason: Insomnia Vitamin A (Vitamin A & D Oint Ud Foilpak) 1 ea EXT Q8 PRN PRN Reason: dry skin Last Admin: 08/12/18 10:29 Dose: 1 ea - Labs Labs: 08/22/18 07:42 08/22/18 07:42 PT 11.7 SECONDS (9.7-12.2) 08/01/18 16:06 INR 1.1 08/01/18 16:06 APTT 34 SECONDS (21-34) 08/01/18 16:06 - Constitutional Appears: Non-toxic, Chronically Ill - Head Exam Head Exam: NORMOCEPHALIC - Eye Exam Eye Exam: absent: Scleral icterus - ENT Exam ENT Exam: Mucous Membranes Dry - Neck Exam Neck Exam: absent: Lymphadenopathy - Respiratory Exam Respiratory Exam: Decreased Breath Sounds - Cardiovascular Exam Cardiovascular Exam: REGULAR RHYTHM - GI/Abdominal Exam GI & Abdominal Exam: Distended - Rectal Exam Rectal Exam: Deferred - Exam Exam: NORMAL INSPECTION - Extremities Exam Extremities Exam: absent: Pedal Edema - Back Exam Back Exam: absent: CVA tenderness (L), CVA tenderness (R) - Neurological Exam Neurological Exam: Alert, Awake Assessment and Plan (1) Abscess Status: Acute (2) Cellulitis Status: Acute (3) Hidradenitis suppurativa Status: Acute - Assessment and Plan (Free Text) Assessment: cont iv rx a sordered check labs possible d/c once cleared by surgery
[2018-08-23 20:11] LABS: BASO # 0.1 K/uL (0.0-0.2); EOS # 0.3 K/uL (0.0-0.7); EOS % 4.8 % (0.0-4.0); HEMOGLOBIN 8.3 g/dL (11.0-16.0); MEAN CELL VOLUME 84.8 fL (81.0-99.0); MEAN CORPUSCULAR HEMOGLOBIN 27.1 pg (27.0-31.0); MEAN CORPUSCULAR HGB CONC 31.9 g/dL (33.0-37.0); MEAN PLATELET VOLUME 7.5 fL (7.2-11.7); MONO # 0.7 K/uL (0.0-0.8); MONO % 11.5 % (0.0-10.0); NEUT # 2.7 K/uL (1.8-7.0); NEUT % 46.7 % (50.0-75.0); RBC 3.05 Mil/uL (3.80-5.20); WHITE BLOOD COUNT 5.7 K/uL (4.8-10.8)
[2018-08-23 20:38] LABS: ALBUMIN 3.5 g/dL (3.5-5.0); ALT/SGPT 70 U/L (9-52); AST/SGOT 54 U/L (14-36); BLOOD UREA NITROGEN 9 mg/dL (7-17); CALCIUM 8.7 mg/dl (8.6-10.4); GFR NON-AFRICAN AMERICAN > 60
[2018-08-24] MEDS: Meropenem 500 MG in Sodium Chloride 0.9% 100 ML IVPB SCH ×3 (00:11→16:38)
[2018-08-24] MEDS: Morphine 4 MG/ML VIAL IVP PRN ×3 (03:42→20:53)
[2018-08-24] MEDS: oxyCODONE 5 mg Immediate Release Tab PO PRN (05:42)
[2018-08-24] MEDS: Pantoprazole 20 mg EC Tab PO SCH (09:02)
[2018-08-24] MEDS: Saccharomyces Boulardi 250 mg Cap PO SCH ×2 (09:02→17:45)
[2018-08-24] MEDS: Lactated Ringer's 1,000 ML IV SCH ×2 (10:36→13:33)
[2018-08-24] MEDS: Enoxaparin 40 mg Syringe SC SCH (11:42)
[2018-08-25] MEDS: Meropenem 500 MG in Sodium Chloride 0.9% 100 ML IVPB SCH ×3 (00:27→16:36)
[2018-08-25] MEDS: Morphine 4 MG/ML VIAL IVP PRN ×5 (00:31→21:54)
[2018-08-25] MEDS: oxyCODONE 5 mg Immediate Release Tab PO PRN (05:32)
[2018-08-25] MEDS: Pantoprazole 20 mg EC Tab PO SCH (10:21)
[2018-08-25] MEDS: Saccharomyces Boulardi 250 mg Cap PO SCH ×2 (10:21→17:46)
[2018-08-25] MEDS ORDERED: Magnesium Sulfate 1 gm in D5W 1 GM/100 ML BAG IVPB ONE (11:20)
--- NOTE | 2018-08-25 18:00 | CP.PCM.PN ---
Subjective - Date & Time of Evaluation Date of Evaluation: 08/25/18 Time of Evaluation: 06:00 - Subjective Subjective: rx renewed Objective - Vital Signs/Intake and Output Vital Signs (last 24 hours): Temp Pulse Resp BP Pulse Ox 97.9 F 82 20 103/66 99 08/25/18 07:09 08/25/18 07:09 08/25/18 07:09 08/25/18 07:09 08/25/18 07:09 Intake and Output: 08/25/18 08/25/18 06:59 18:59 Intake Total 340 1100 Balance 340 1100 - Medications Medications: Current Medications Alprazolam (Xanax) 1 mg PO BID PRN PRN Reason: Anxiety Last Admin: 08/25/18 14:24 Dose: 1 mg Bacitracin (Bacitracin) 1 ea TOP BID PRN PRN Reason: APPLY TO GROIN Last Admin: 08/22/18 12:41 Dose: 1 ea Dicyclomine HCl (Bentyl) 10 mg PO Q6 [facility] Last Admin: 08/25/18 17:46 Dose: 10 mg Famotidine (Pepcid) 20 mg PO BID [facility] Last Admin: 08/25/18 17:46 Dose: 20 mg Gabapentin (Neurontin) 300 mg PO BID [facility] Last Admin: 08/25/18 17:46 Dose: 300 mg Hydroxyzine HCl (Atarax) 50 mg PO Q8 PRN PRN Reason: Allergy symptoms Last Admin: 08/25/18 11:17 Dose: 50 mg Meropenem 500 mg/ Sodium (Chloride) 100 mls @ 100 mls/hr IVPB Q8H [facility]; Protocol Last Admin: 08/25/18 16:36 Dose: 100 mls/hr Morphine Sulfate (Morphine) 6 mg IVP Q3 PRN PRN Reason: Pain, severe (8-10) Last Admin: 08/25/18 11:17 Dose: 6 mg Pantoprazole Sodium (Protonix Ec Tab) 20 mg PO DAILY [facility] Last Admin: 08/25/18 10:21 Dose: 20 mg Saccharomyces Boulardii (Florastor) 250 mg PO BID [facility] Last Admin: 08/25/18 17:46 Dose: 250 mg Trazodone HCl (Desyrel) 50 mg PO HS PRN PRN Reason: Insomnia Vitamin A (Vitamin A & D Oint Ud Foilpak) 1 ea EXT Q8 PRN PRN Reason: dry skin Last Admin: 08/12/18 10:29 Dose: 1 ea - Labs Labs: 08/23/18 20:05 08/23/18 20:05 PT 11.7 SECONDS (9.7-12.2) 08/01/18 16:06 INR 1.1 08/01/18 16:06 APTT 34 SECONDS (21-34) 08/01/18 16:06 - Constitutional Appears: Non-toxic, Chronically Ill - Head Exam Head Exam: NORMOCEPHALIC - ENT Exam ENT Exam: Mucous Membranes Dry - Respiratory Exam Respiratory Exam: Decreased Breath Sounds - Cardiovascular Exam Cardiovascular Exam: REGULAR RHYTHM - GI/Abdominal Exam GI & Abdominal Exam: Distended, Soft - Rectal Exam Rectal Exam: Deferred - Exam Exam: NORMAL INSPECTION - Extremities Exam Extremities Exam: Full ROM Assessment and Plan (1) Abscess Status: Acute (2) Cellulitis Status: Acute (3) Hidradenitis suppurativa Status: Acute
[2018-08-26] MEDS: Meropenem 500 MG in Sodium Chloride 0.9% 100 ML IVPB SCH ×2 (00:15→10:21)
[2018-08-26] MEDS: Morphine 4 MG/ML VIAL IVP PRN ×5 (01:55→21:22)
--- NOTE | 2018-08-26 09:30 | CP.PCM.PN ---
Subjective - Date & Time of Evaluation Date of Evaluation: 08/26/18 Time of Evaluation: 09:28 - Subjective Subjective: Medicine Progress Note for Dr. Diehl This patient was seen and examined at bedside, while resting comfortably in bed. Patient reports persistent discomfort at site of rectal packing. She has been changing the packing several times per day, with the help of nursing. She denies any f/c, chest pain, SOB, discharge from her packing site, abdominal pain, nausea, vomit, d/c, or LE edema. She states she continues to have diarrhea on a daily basis for the last 10 days (stool culture negative). She denies any acute complaints, stating she is ready to go home. Objective - Vital Signs/Intake and Output Vital Signs (last 24 hours): Temp Pulse Resp BP Pulse Ox 97.9 F 83 20 110/70 96 08/25/18 23:20 08/25/18 23:20 08/25/18 23:20 08/25/18 23:20 08/25/18 23:20 - Medications Medications: Current Medications Alprazolam (Xanax) 1 mg PO BID PRN PRN Reason: Anxiety Last Admin: 08/26/18 03:02 Dose: 1 mg Bacitracin (Bacitracin) 1 ea TOP BID PRN PRN Reason: APPLY TO GROIN Last Admin: 08/22/18 12:41 Dose: 1 ea Dicyclomine HCl (Bentyl) 10 mg PO Q6 [facility] Last Admin: 08/26/18 06:31 Dose: 10 mg Famotidine (Pepcid) 20 mg PO BID [facility] Last Admin: 08/25/18 17:46 Dose: 20 mg Gabapentin (Neurontin) 300 mg PO BID [facility] Last Admin: 08/25/18 17:46 Dose: 300 mg Hydroxyzine HCl (Atarax) 50 mg PO Q8 PRN PRN Reason: Allergy symptoms Last Admin: 08/26/18 01:55 Dose: 50 mg Meropenem 500 mg/ Sodium (Chloride) 100 mls @ 100 mls/hr IVPB Q8H [facility]; Protocol Last Admin: 08/26/18 00:15 Dose: 100 mls/hr Morphine Sulfate (Morphine) 6 mg IVP Q3 PRN PRN Reason: Pain, severe (8-10) Last Admin: 08/26/18 06:31 Dose: 6 mg Pantoprazole Sodium (Protonix Ec Tab) 20 mg PO DAILY [facility] Last Admin: 08/25/18 10:21 Dose: 20 mg Saccharomyces Boulardii (Florastor) 250 mg PO BID [facility] Last Admin: 08/25/18 17:46 Dose: 250 mg Trazodone HCl (Desyrel) 50 mg PO HS PRN PRN Reason: Insomnia Vitamin A (Vitamin A & D Oint Ud Foilpak) 1 ea EXT Q8 PRN PRN Reason: dry skin Last Admin: 08/12/18 10:29 Dose: 1 ea - Labs Labs: 08/23/18 20:05 08/23/18 20:05 PT 11.7 SECONDS (9.7-12.2) 08/01/18 16:06 INR 1.1 08/01/18 16:06 APTT 34 SECONDS (21-34) 08/01/18 16:06 - Additional Findings Additional findings: - Constitutional Appears: Well, No Acute Distress - Head Exam Head Exam: ATRAUMATIC, NORMAL INSPECTION - Eye Exam Eye Exam: EOMI, Normal appearance - ENT Exam ENT Exam: Mucous Membranes Moist - Respiratory Exam Respiratory Exam: Clear to Ausculation Bilateral, NORMAL BREATHING PATTERN. absent: Decreased Breath Sounds, Rhonchi, Wheezes - Cardiovascular Exam Cardiovascular Exam: REGULAR RHYTHM, +S1, +S2 - GI/Abdominal Exam GI & Abdominal Exam: Soft, Normal Bowel Sounds Additional comments: obese abdomen - Extremities Exam Extremities Exam: Normal Inspection. absent: Calf Tenderness, Pedal Edema - Neurological Exam Neurological Exam: Alert, Awake, Oriented x3 - Skin Additional comments: Rectal packing is in place and C/D/I No erythema or discharge at site. Assessment and Plan - Assessment and Plan (Free Text) Assessment: (1) Abscess Assessment & Plan: 08/26: Patient is stable for discharge, likely on 08/27. Stop Meropenem. Start Invanz 1Gm IV qD x7days (first dose today) - see how pt responds, as she has extensive medication allergy Will d/c on Percocet 5/325 PO q4H PRN pain - Admitted for hidradenitis suppurativa of the intergluteal cleft bilaterally - s/p I&D on 08/02/18, 08/06/18, 08/08/[address] Artur - Schedule for OR w/ Dr. Siddiqui on 08/09/18 - Hx of multiple I&D's - General surgery consulted, Dr. Siddiqui; recs appreciated - s/p debridement 08/21/18 - s/p debridement 08/20/18----> Gram negative elyse - ID consulted, Dr. Gastelum; recs appreciated - Groin wound on at last admission grew: Pseudomonas, E. coli, Proteus, and Klebsiella *Of note, on previous admissions, cultures have grown Acinetobacter Baumannii, E. Coli, Pseudomonas, Proteus Mirabilis - Wound cx (08/05/18): + ecoli ESBL * Patient has VRE * Daptomycin and Meropenem on board; sensitive to Linezolid as well - Medications: * Merrem 500mg IV Q8h (active since 08/08/18) * Daptomycin for VRE (Initiated 08/11/18) * sensitive to linezolid * Morphine 6mg IV Q4 prn>>> changed to q 3 prn Status: Acute (2) IBS (irritable bowel syndrome) Assessment & Plan: - Chronic Diarrhea/ Constipation - Continue Home Bentyl 10mg po q6h - Milk of mag 30ml PO daily prn - held - Colace 100mg PO BID - held Status: Acute (3) Diarrhea Assessment & Plan: C-difficile, Stool leukocytes: Negative Status: Acute (4) Allergic urticaria Assessment & Plan: - Continue Home Atarax 50mg po q8 Status: Resolved (5) Psychiatric disorder Assessment & Plan: Anxiety and depression: * Continue Home Xanax 1mg po bid - Psychiatrist consulted, Dr King; rec lexapro 5mg daily * As per psychiatry documentation, patient refused Status: Acute (6) Impacted cerumen of both ears Assessment & Plan: - Cerumen disimpaction as an outpatient - Patient instructed not to insert q-tip Status: Acute (7) Serum phosphate elevated Assessment & Plan: 08/26: resolved Phosphorus: 5.3---> 5.2 PTH intact: 27 Status: Acute (8) Prophylactic measure Assessment & Plan: - DVT: SCDs - Protonix 20mg PO daily - Florastor 250mg po bid - PT - Patient will ultimately need electrolysis for removal of hair follicles to prevent future abscesses from hidradenitis; patient is aware and has been planning to do for some time Disposition: Stopping Meropenem and starting Invanz 1Gm IV qD x7; D/C patient on 08/27/18 once she proves to tolerate new abx Invanz. All medical management as per Dr. Diehl
[2018-08-26] MEDS: Saccharomyces Boulardi 250 mg Cap PO SCH ×2 (10:21→17:28)
[2018-08-26] MEDS: Pantoprazole 20 mg EC Tab PO SCH (10:21)
[2018-08-26 11:20] LABS: BASO % 0.7 % (0.0-2.0); EOS # 0.3 K/uL (0.0-0.7); EOS % 4.5 % (0.0-4.0); HEMOGLOBIN 8.9 g/dL (11.0-16.0); LYMPH # 2.8 K/uL (1.0-4.3); LYMPH % 43.3 % (20.0-40.0); MEAN CELL VOLUME 84.5 fL (81.0-99.0); MEAN CORPUSCULAR HEMOGLOBIN 27.8 pg (27.0-31.0); MEAN CORPUSCULAR HGB CONC 32.9 g/dL (33.0-37.0); MEAN PLATELET VOLUME 7.6 fL (7.2-11.7); MONO # 0.6 K/uL (0.0-0.8); NEUT # 2.8 K/uL (1.8-7.0); NEUT % 42.5 % (50.0-75.0); RBC 3.22 Mil/uL (3.80-5.20); RED CELL DISTRIBUTION WIDTH 15.3 % (11.5-14.5); WHITE BLOOD COUNT 6.5 K/uL (4.8-10.8)
[2018-08-26 11:33] LABS: ALB/GLOB RATIO 1.1 (1.0-2.1); ALBUMIN 3.9 g/dL (3.5-5.0); ALT/SGPT 79 U/L (9-52); AST/SGOT 53 U/L (14-36); BLOOD UREA NITROGEN 10 mg/dL (7-17); CALCIUM 8.9 mg/dl (8.6-10.4); GFR NON-AFRICAN AMERICAN > 60
[2018-08-26] MEDS ORDERED: Ertapenem 1gm in NS 50ml 1 GM in Sodium Chloride 0.9% 50 ML IV ONE (12:01)
[2018-08-27] MEDS: Morphine 4 MG/ML VIAL IVP PRN ×3 (01:26→08:19)
--- NOTE | 2018-08-27 07:39 | CP.PCM.PN ---
Subjective - Date & Time of Evaluation Date of Evaluation: 08/27/18 Time of Evaluation: 08:00 - Subjective Subjective: Medicine Progress Note for Dr. Diehl This patient was seen and examined at bedside this AM. Patient continues to complain about pain at her wound site. Patient states she has had 1 episode of diarrhea this morning. Patient denies fevers/chills, chest pain, shortness of breath or headache. Objective - Vital Signs/Intake and Output Vital Signs (last 24 hours): Temp Pulse Resp BP Pulse Ox 97.9 F 76 20 117/76 100 08/27/18 00:00 08/27/18 00:00 08/27/18 00:00 08/27/18 00:00 08/27/18 00:00 - Medications Medications: Current Medications Alprazolam (Xanax) 1 mg PO BID PRN PRN Reason: Anxiety Last Admin: 08/27/18 03:45 Dose: 1 mg Bacitracin (Bacitracin) 1 ea TOP BID PRN PRN Reason: APPLY TO GROIN Last Admin: 08/22/18 12:41 Dose: 1 ea Dicyclomine HCl (Bentyl) 10 mg PO Q6 [facility] Last Admin: 08/27/18 06:33 Dose: 10 mg Famotidine (Pepcid) 20 mg PO BID [facility] Last Admin: 08/26/18 17:28 Dose: 20 mg Gabapentin (Neurontin) 300 mg PO BID [facility] Last Admin: 08/26/18 17:28 Dose: 300 mg Hydroxyzine HCl (Atarax) 50 mg PO Q8 PRN PRN Reason: Allergy symptoms Last Admin: 08/27/18 01:26 Dose: 50 mg Morphine Sulfate (Morphine) 6 mg IVP Q3 PRN PRN Reason: Pain, severe (8-10) Last Admin: 08/27/18 04:30 Dose: 6 mg Pantoprazole Sodium (Protonix Ec Tab) 20 mg PO DAILY [facility] Last Admin: 08/26/18 10:21 Dose: 20 mg Saccharomyces Boulardii (Florastor) 250 mg PO BID [facility] Last Admin: 08/26/18 17:28 Dose: 250 mg Trazodone HCl (Desyrel) 50 mg PO HS PRN PRN Reason: Insomnia Vitamin A (Vitamin A & D Oint Ud Foilpak) 1 ea EXT Q8 PRN PRN Reason: dry skin Last Admin: 08/12/18 10:29 Dose: 1 ea - Labs Labs: 08/26/18 11:01 08/26/18 11:01 PT 11.7 SECONDS (9.7-12.2) 08/01/18 16:06 INR 1.1 08/01/18 16:06 APTT 34 SECONDS (21-34) 08/01/18 16:06 - Constitutional Appears: Non-toxic, Chronically Ill - Head Exam Head Exam: ATRAUMATIC, NORMAL INSPECTION - Eye Exam Eye Exam: EOMI, Normal appearance - ENT Exam ENT Exam: Mucous Membranes Moist - Respiratory Exam Respiratory Exam: Clear to Ausculation Bilateral, NORMAL BREATHING PATTERN - Cardiovascular Exam Cardiovascular Exam: REGULAR RHYTHM, +S1, +S2 - GI/Abdominal Exam GI & Abdominal Exam: Soft, Normal Bowel Sounds. absent: Tenderness - Extremities Exam Extremities Exam: Normal Inspection - Neurological Exam Neurological Exam: Alert, Awake, Oriented x3 - Psychiatric Exam Psychiatric exam: Anxious - Skin Additional comments: Rectal packing is in place and clean and currently dry Assessment and Plan - Assessment and Plan (Free Text) Assessment: Assessment & Plan: This is a 37 yo female with a past medical hx of recurrent hidradenitis suppurativa, gastritis, irritable bowel syndrome, and anxiety. Recurrent Hidradenitis Suppurativa of the groin/intergluteal cleft - Admitted for hidradenitis suppurativa of the intergluteal cleft bilaterally - s/p I&D on 08/02/18, 08/06/18, 08/08/[address] Siddiqui - Schedule for OR w/ Dr. Siddiqui on 08/09/18 - Hx of multiple I&D's - General surgery consulted, Dr. Siddiqui; recs appreciated - s/p debridement 08/21/18 - s/p debridement 08/20/18 - ID consulted, Dr. Gastelum; recs appreciated - Groin wound on at last admission grew: Pseudomonas, E. coli, Proteus, and Klebsiella *Of note, on previous admissions, cultures have grown Acinetobacter Baumannii, E. Coli, Pseudomonas, Proteus Mirabilis - Wound cx (08/05/18): + ecoli ESBL * Patient has VRE * Daptomycin and Meropenem on board; sensitive to Linezolid as well - Medications: * Merrem 500mg IV Q8h (active since 08/08/18) - discontinued * Daptomycin for VRE (Initiated 08/11/18) - discontinued * sensitive to linezolid * Morphine 2mg q3 prn * Percocet 2 tablets q4 prn * Invanz 1gm daily started 08/26/18 x 3 doses ending 08/28/18 Diarrhea - cdiff, stool leukocytes, stool culture - negative - Patient given Imodium once IBS (irritable bowel syndrome) - Chronic Diarrhea/ Constipation - Continue Home Bentyl 10mg po q6h - Milk of mag 30ml PO daily prn - held - Colace 100mg PO BID - held Elevated Phosphate - Phosphorus: 5.3 - f/u PTH Allergic urticaria - Continue Home Atarax 50mg po q8 Psychiatric disorder Anxiety and depression: * Continue Home Xanax 1mg po bid - Psychiatrist consulted, Dr King; rec lexapro 5mg daily * As per psychiatry documentation, patient refused Bilateral ear impacted with cerumen - Cerumen disimpaction as an outpatient - Patient instructed not to insert q-tip Prophylactic measure - DVT: SCDs - Protonix 20mg PO daily - Florastor 250mg po bid - PT - Patient will ultimately need electrolysis for removal of hair follicles to prevent future abscesses from hidradenitis; patient is aware and has been planning to do for some time Disposition: Possibly 08/29/18. Patient will not be discharged on antibiotics per Dr. Gastelum. Continue wound care. Patient to follow up with Dr. Siddiqui and PMD. All medical management as per Dr. Diehl
[2018-08-27] MEDS ORDERED: Loperamide Hydrochloride 1 mg/5 ml Cup PO ONE (07:45)
[2018-08-27] MEDS: Pantoprazole 20 mg EC Tab PO SCH (09:59)
[2018-08-27] MEDS: Bacitracin 500 Units/gm Oint Foilpak UD TOP PRN (09:59)
[2018-08-27] MEDS ORDERED: Ertapenem 1gm in NS 50ml 1 GM in Sodium Chloride 0.9% 50 ML IV ONE (10:00)
[2018-08-27] MEDS: Saccharomyces Boulardi 250 mg Cap PO SCH ×2 (10:00→18:14)
[2018-08-27] MEDS: Oxycodone/Acetaminophen 5/325 mg Tab PO PRN ×2 (12:00→23:00)
[2018-08-28 07:20] LABS: BASO % 0.2 % (0.0-2.0); EOS # 0.3 K/uL (0.0-0.7); EOS % 4.8 % (0.0-4.0); HEMOGLOBIN 8.8 g/dL (11.0-16.0); LYMPH # 2.9 K/uL (1.0-4.3); LYMPH % 48.1 % (20.0-40.0); MEAN CELL VOLUME 83.2 fL (81.0-99.0); MEAN CORPUSCULAR HEMOGLOBIN 28.2 pg (27.0-31.0); MEAN CORPUSCULAR HGB CONC 33.9 g/dL (33.0-37.0); MEAN PLATELET VOLUME 7.2 fL (7.2-11.7); MONO # 0.8 K/uL (0.0-0.8); MONO % 12.7 % (0.0-10.0); NEUT # 2.1 K/uL (1.8-7.0); NEUT % 34.2 % (50.0-75.0); RBC 3.12 Mil/uL (3.80-5.20); RED CELL DISTRIBUTION WIDTH 15.2 % (11.5-14.5); WHITE BLOOD COUNT 6.1 K/uL (4.8-10.8)
--- NOTE | 2018-08-28 07:28 | CP.PCM.PN ---
Subjective - Date & Time of Evaluation Date of Evaluation: 08/28/18 Time of Evaluation: 08:00 - Subjective Subjective: Medicine Progress Note for Dr. Diehl This patient was seen and examined at bedside this AM. Patient continues to complain about pain at her wound site. Patient states she has had 3 episodes of diarrhea this morning. Patient denies fevers/chills, chest pain, shortness of breath or headache. Objective - Vital Signs/Intake and Output Vital Signs (last 24 hours): Temp Pulse Resp BP Pulse Ox 98 F 88 20 116/76 98 08/27/18 23:30 08/27/18 23:30 08/27/18 23:30 08/27/18 23:30 08/27/18 23:30 - Medications Medications: Current Medications Alprazolam (Xanax) 1 mg PO BID PRN PRN Reason: Anxiety Last Admin: 08/28/18 04:00 Dose: 1 mg Bacitracin (Bacitracin) 1 ea TOP BID PRN PRN Reason: APPLY TO GROIN Last Admin: 08/27/18 09:59 Dose: 1 ea Dicyclomine HCl (Bentyl) 10 mg PO Q6 [facility] Last Admin: 08/28/18 07:00 Dose: 10 mg Famotidine (Pepcid) 20 mg PO BID [facility] Last Admin: 08/27/18 18:13 Dose: 20 mg Gabapentin (Neurontin) 300 mg PO BID [facility] Last Admin: 08/27/18 18:13 Dose: 300 mg Hydroxyzine HCl (Atarax) 50 mg PO Q8 PRN PRN Reason: Allergy symptoms Last Admin: 08/28/18 02:44 Dose: 50 mg Morphine Sulfate (Morphine) 2 mg IVP Q3 PRN PRN Reason: Pain, severe (8-10) Last Admin: 08/28/18 07:00 Dose: 2 mg Oxycodone/Acetaminophen (Percocet 5/325 Mg Tab) 2 tab PO Q4H PRN PRN Reason: Pain, moderate (4-7) Stop: 08/30/18 09:48 Last Admin: 08/27/18 23:00 Dose: 2 tab Pantoprazole Sodium (Protonix Ec Tab) 20 mg PO DAILY [facility] Last Admin: 08/27/18 09:59 Dose: 20 mg Saccharomyces Boulardii (Florastor) 250 mg PO BID [facility] Last Admin: 08/27/18 18:14 Dose: 250 mg Trazodone HCl (Desyrel) 50 mg PO HS PRN PRN Reason: Insomnia Vitamin A (Vitamin A & D Oint Ud Foilpak) 1 ea EXT Q8 PRN PRN Reason: dry skin Last Admin: 08/12/18 10:29 Dose: 1 ea - Labs Labs: 08/28/18 07:12 08/26/18 11:01 PT 11.7 SECONDS (9.7-12.2) 08/01/18 16:06 INR 1.1 08/01/18 16:06 APTT 34 SECONDS (21-34) 08/01/18 16:06 - Constitutional Appears: No Acute Distress - Head Exam Head Exam: ATRAUMATIC, NORMAL INSPECTION - Eye Exam Eye Exam: EOMI, Normal appearance - ENT Exam ENT Exam: Mucous Membranes Moist - Respiratory Exam Respiratory Exam: Clear to Ausculation Bilateral, NORMAL BREATHING PATTERN - Cardiovascular Exam Cardiovascular Exam: REGULAR RHYTHM, +S1, +S2 - GI/Abdominal Exam GI & Abdominal Exam: Soft, Normal Bowel Sounds. absent: Tenderness - Extremities Exam Extremities Exam: Normal Inspection - Neurological Exam Neurological Exam: Alert, Awake, Oriented x3 - Psychiatric Exam Psychiatric exam: Normal Affect - Skin Additional comments: Rectal packing is in place and clean and currently dry Assessment and Plan - Assessment and Plan (Free Text) Assessment: Assessment & Plan: This is a 37 yo female with a past medical hx of recurrent hidradenitis suppurativa, gastritis, irritable bowel syndrome, and anxiety. Recurrent Hidradenitis Suppurativa of the groin/intergluteal cleft - Admitted for hidradenitis suppurativa of the intergluteal cleft bilaterally - s/p I&D on 08/02/18, 08/06/18, 08/08/[address] Siddiqui - Schedule for OR w/ Dr. Siddiqui on 08/09/18 - Hx of multiple I&D's - General surgery consulted, Dr. Siddiqui; recs appreciated - debriedement 08/28/18 - s/p debridement 08/21/18 - s/p debridement 08/20/18 - ID consulted, Dr. Gastelum; recs appreciated - Groin wound on at last admission grew: Pseudomonas, E. coli, Proteus, and Klebsiella *Of note, on previous admissions, cultures have grown Acinetobacter Baumannii, E. Coli, Pseudomonas, Proteus Mirabilis - Wound cx (08/05/18): + ecoli ESBL * Patient has VRE * Daptomycin and Meropenem on board; sensitive to Linezolid as well - Medications: * Merrem 500mg IV Q8h (active since 08/08/18) - discontinued * Daptomycin for VRE (Initiated 08/11/18) - discontinued * sensitive to linezolid * Morphine 2mg q3 prn * Percocet 2 tablets q4 prn * Invanz 1gm daily started 08/26/18 x 3 doses ending 08/28/18 Diarrhea - cdiff, stool leukocytes, stool culture - negative - Patient given Imodium once IBS (irritable bowel syndrome) - Chronic Diarrhea/ Constipation - Continue Home Bentyl 10mg po q6h - Milk of mag 30ml PO daily prn - held - Colace 100mg PO BID - held Elevated Phosphate - Resolved - Phosphorus: 4.2 - PTH 27 (WNL) Allergic urticaria - Continue Home Atarax 50mg po q8 Psychiatric disorder Anxiety and depression: * Continue Home Xanax 1mg po bid - Psychiatrist consulted, Dr King; rec lexapro 5mg daily * As per psychiatry documentation, patient refused Bilateral ear impacted with cerumen - Cerumen disimpaction as an outpatient - Patient instructed not to insert q-tip Prophylactic measure - DVT: SCDs - Protonix 20mg PO daily - Florastor 250mg po bid - PT - Patient will ultimately need electrolysis for removal of hair follicles to prevent future abscesses from hidradenitis; patient is aware and has been planning to do for some time Disposition: Patient will not be discharged on antibiotics per Dr. Gastelum. Continue wound care. Patient to follow up with Dr. Siddiqui and PMD. All medical management as per Dr. Diehl
[2018-08-28 07:42] LABS: ALBUMIN 3.5 g/dL (3.5-5.0); ALT/SGPT 69 U/L (9-52); AST/SGOT 44 U/L (14-36); BLOOD UREA NITROGEN 14 mg/dL (7-17); CALCIUM 8.9 mg/dl (8.6-10.4); GFR NON-AFRICAN AMERICAN > 60
[2018-08-28] MEDS: Oxycodone/Acetaminophen 5/325 mg Tab PO PRN (08:24)
[2018-08-28] MEDS: Saccharomyces Boulardi 250 mg Cap PO SCH ×2 (10:06→17:24)
[2018-08-28] MEDS: Pantoprazole 20 mg EC Tab PO SCH (10:06)
[2018-08-28] MEDS ORDERED: Midazolam 2 MG/2 ML VIAL ONE (13:45)
[2018-08-28] MEDS ORDERED: Propofol 10 mg/ml Inj (20 ML) ONE (13:46)
[2018-08-28] MEDS ORDERED: Lidocaine Hydrochloride 10 ML INJ ONE (13:55)
[2018-08-28] MEDS ORDERED: Bupivacaine 0.25% 20 ML INJ IJ ONE (13:56)
[2018-08-28] MEDS ORDERED: Doxycycline 100 mg Inj ONE (13:56)
[2018-08-28] MEDS ORDERED: Lactated Ringer's 1,000 ML IV SCH (14:45)
[2018-08-28 16:36] VITALS: RESP 20
--- NOTE | 2018-08-28 23:55 | OP ---
PROCEDURE DATE: 08/28/2018 PREOPERATIVE DIAGNOSIS: Nonhealing rectal wound. POSTOPERATIVE DIAGNOSIS: Nonhealing rectal wound. PROCEDURE PERFORMED: Pulse irrigation and debridement of nonhealing rectal wound. SURGEON: Nitish Siddiqui MD ANESTHESIA: General. BLOOD LOSS: 40 mL. POSTOPERATIVE CONDITION: Stable. INDICATIONS FOR SURGERY: This is a 37-year-old female, status post multiple staged procedures. Has a deep rectal wound in her back. Has been had prolonged hospitalization and had a recent Dermagraft placed. She has had repeated episodes of diarrhea and has a possible re-infection in the area and has been taken back to the operating room for examination under sedation for possible re-infection and loss of the Dermagraft. GROSS FINDINGS: Dermagraft was noted to be in place. The underlying tissue was noted to be healing nicely. There was no evidence of a new infection and debridement change of packing and washout was performed. DESCRIPTION OF PROCEDURE: The patient was taken to the operating room. IV sedation was administered. She was placed in a prone position. The rectal area was prepped and draped. The wound was pulse irrigated and debrided. Bleeding was controlled using a Bovie. A new packing was placed. The patient tolerated the procedure well and returned to recovery room in stable condition. Nitish Siddiqui MD
[2018-08-29] MEDS: Oxycodone/Acetaminophen 5/325 mg Tab PO PRN (05:02)
[2018-08-29 07:29] LABS: BASO % 0.7 % (0.0-2.0); EOS # 0.2 K/uL (0.0-0.7); EOS % 3.9 % (0.0-4.0); HEMOGLOBIN 8.6 g/dL (11.0-16.0); LYMPH # 2.7 K/uL (1.0-4.3); LYMPH % 45.1 % (20.0-40.0); MEAN CELL VOLUME 84.7 fL (81.0-99.0); MEAN CORPUSCULAR HEMOGLOBIN 28.1 pg (27.0-31.0); MEAN CORPUSCULAR HGB CONC 33.2 g/dL (33.0-37.0); MEAN PLATELET VOLUME 7.3 fL (7.2-11.7); MONO # 0.7 K/uL (0.0-0.8); NEUT # 2.3 K/uL (1.8-7.0); NEUT % 38.3 % (50.0-75.0); NRBC % 0.1 % (0.0-2.0); RBC 3.05 Mil/uL (3.80-5.20)
--- NOTE | 2018-08-29 07:51 | CP.PCM.PN ---
Subjective - Date & Time of Evaluation Date of Evaluation: 08/29/18 Time of Evaluation: 08:00 - Subjective Subjective: Medicine Progress Note for Dr. Diehl This patient was seen and examined at bedside this AM. Patient continues to complain about pain at her wound site but states it has improved. Patient denies fevers/chills, chest pain, shortness of breath or headache. Objective - Vital Signs/Intake and Output Vital Signs (last 24 hours): Temp Pulse Resp BP Pulse Ox 98.1 F 114 H 20 127/83 100 08/28/18 23:05 08/28/18 23:05 08/28/18 23:05 08/28/18 23:05 08/28/18 23:05 - Medications Medications: Current Medications Alprazolam (Xanax) 1 mg PO BID PRN PRN Reason: Anxiety Last Admin: 08/29/18 02:40 Dose: 1 mg Bacitracin (Bacitracin) 1 ea TOP BID PRN PRN Reason: APPLY TO GROIN Last Admin: 08/27/18 09:59 Dose: 1 ea Dicyclomine HCl (Bentyl) 10 mg PO Q6 [facility] Last Admin: 08/29/18 07:02 Dose: 10 mg Famotidine (Pepcid) 20 mg PO BID [facility] Last Admin: 08/28/18 17:24 Dose: 20 mg Fentanyl (Fentanyl) 50 mcg IVP Q15MIN PRN PRN Reason: Pain, moderate (4-7) Last Admin: 08/28/18 15:15 Dose: 50 mcg Gabapentin (Neurontin) 300 mg PO BID [facility] Last Admin: 08/28/18 17:24 Dose: 300 mg Hydroxyzine HCl (Atarax) 50 mg PO Q8 PRN PRN Reason: Allergy symptoms Last Admin: 08/29/18 00:58 Dose: 50 mg Lactated Ringer's (Lactated Ringer's) 1,000 mls @ 100 mls/hr IV .Q10H [facility] Last Admin: 08/29/18 01:04 Dose: 100 mls/hr Morphine Sulfate (Morphine) 2 mg IVP Q3 PRN PRN Reason: Pain, severe (8-10) Last Admin: 08/29/18 00:58 Dose: 2 mg Oxycodone/Acetaminophen (Percocet 5/325 Mg Tab) 2 tab PO Q4H PRN PRN Reason: Pain, moderate (4-7) Stop: 08/30/18 09:48 Last Admin: 08/29/18 05:02 Dose: 2 tab Pantoprazole Sodium (Protonix Ec Tab) 20 mg PO DAILY [facility] Last Admin: 08/28/18 10:06 Dose: 20 mg Saccharomyces Boulardii (Florastor) 250 mg PO BID [facility] Last Admin: 08/28/18 17:24 Dose: 250 mg Trazodone HCl (Desyrel) 50 mg PO HS PRN PRN Reason: Insomnia Vitamin A (Vitamin A & D Oint Ud Foilpak) 1 ea EXT Q8 PRN PRN Reason: dry skin Last Admin: 08/12/18 10:29 Dose: 1 ea - Labs Labs: 08/29/18 07:22 08/28/18 07:12 PT 11.7 SECONDS (9.7-12.2) 08/01/18 16:06 INR 1.1 08/01/18 16:06 APTT 34 SECONDS (21-34) 08/01/18 16:06 - Constitutional Appears: No Acute Distress - Head Exam Head Exam: ATRAUMATIC, NORMAL INSPECTION - Eye Exam Eye Exam: EOMI, Normal appearance - ENT Exam ENT Exam: Mucous Membranes Moist - Respiratory Exam Respiratory Exam: Clear to Ausculation Bilateral, NORMAL BREATHING PATTERN - Cardiovascular Exam Cardiovascular Exam: REGULAR RHYTHM, +S1, +S2 - GI/Abdominal Exam GI & Abdominal Exam: Soft, Normal Bowel Sounds. absent: Tenderness - Extremities Exam Extremities Exam: Normal Inspection - Neurological Exam Neurological Exam: Alert, Awake, Oriented x3 - Psychiatric Exam Psychiatric exam: Normal Affect - Skin Additional comments: Rectal packing is in place and clean and currently dry Assessment and Plan - Assessment and Plan (Free Text) Assessment: Assessment & Plan: This is a 37 yo female with a past medical hx of recurrent hidradenitis suppurativa, gastritis, irritable bowel syndrome, and anxiety. Recurrent Hidradenitis Suppurativa of the groin/intergluteal cleft - Admitted for hidradenitis suppurativa of the intergluteal cleft bilaterally - s/p I&D on 08/02/18, 08/06/18, 08/08/[address] Siddiqui - Schedule for OR w/ Dr. Siddiqui on 08/09/18 - Hx of multiple I&D's - General surgery consulted, Dr. Siddiqui; recs appreciated - s/p debriedement 08/28/18 - s/p debridement 08/21/18 - s/p debridement 08/20/18 - ID consulted, Dr. Gastelum; recs appreciated - Groin wound on at last admission grew: Pseudomonas, E. coli, Proteus, and Klebsiella *Of note, on previous admissions, cultures have grown Acinetobacter Baumannii, E. Coli, Pseudomonas, Proteus Mirabilis - Wound cx (08/05/18): + ecoli ESBL * Patient has VRE * Daptomycin and Meropenem on board; sensitive to Linezolid as well - Medications: * Merrem 500mg IV Q8h (active since 08/08/18) - discontinued * Daptomycin for VRE (Initiated 08/11/18) - discontinued * sensitive to linezolid * Morphine 2mg q3 prn * Percocet 2 tablets q4 prn * Invanz 1gm daily started 08/26/18 x 3 doses ending 08/28/18 Diarrhea - cdiff, stool leukocytes, stool culture - negative - Patient given Imodium once IBS (irritable bowel syndrome) - Chronic Diarrhea/ Constipation - Continue Home Bentyl 10mg po q6h - Milk of mag 30ml PO daily prn - held - Colace 100mg PO BID - held Elevated Phosphate - Resolved - Phosphorus: 4.2 - PTH 27 (WNL) Allergic urticaria - Continue Home Atarax 50mg po q8 Psychiatric disorder Anxiety and depression: * Continue Home Xanax 1mg po bid - Psychiatrist consulted, Dr King; rec lexapro 5mg daily * As per psychiatry documentation, patient refused Bilateral ear impacted with cerumen - Cerumen disimpaction as an outpatient - Patient instructed not to insert q-tip Prophylactic measure - DVT: SCDs - Protonix 20mg PO daily - Florastor 250mg po bid - PT - Patient will ultimately need electrolysis for removal of hair follicles to prevent future abscesses from hidradenitis; patient is aware and has been planning to do for some time Disposition: Patient stable for discharge home 08/29/18. Patient will not be d ischarged on antibiotics per Dr. Gastelum. Continue wound care. Patient to follow up with Dr. Siddiqui and PMD. All medical management as per Dr. Diehl
[2018-08-29 08:02] LABS: ALBUMIN 3.5 g/dL (3.5-5.0); ALT/SGPT 68 U/L (9-52); AST/SGOT 44 U/L (14-36); BLOOD UREA NITROGEN 14 mg/dL (7-17); GFR NON-AFRICAN AMERICAN > 60
[2018-08-29 09:14] VITALS: BP 106/66; PULSE 77; TEMP 98.7; O2SAT 96
[2018-08-29] MEDS: Pantoprazole 20 mg EC Tab PO SCH (09:51)
[2018-08-29] MEDS: Saccharomyces Boulardi 250 mg Cap PO SCH (09:52)
--- NOTE | 2018-09-03 01:45 | OP ---
PROCEDURE DATE: 08/09/2018 PREOPERATIVE DIAGNOSIS: Large rectal and pelvic abscesses. POSTOPERATIVE DIAGNOSIS: Large rectal and pelvic abscesses. PROCEDURE PERFORMED: Staged re-drainage, debridement, partial closure of rectal and pelvic abscesses. SURGEON: Nitish Siddiqui MD ANESTHESIA: General. BLOOD LOSS: 30 mL. POSTOPERATIVE CONDITION: Stable. INDICATIONS FOR SURGERY: This is a staged procedure. A 37-year-old female with multiple abscesses, recently had rectal and pelvic abscesses drained. DESCRIPTION OF PROCEDURE: The patient was taken to the operating room, placed in the prone position. IV sedation was administered. The buttocks were taped open. The wound was aggressively debrided into the rectal and pelvic area with any remaining collections were drained and cultured. Bleeding was controlled with the Bovie. Larger blood vessels were repaired. Partial tissue flap closure was performed at the periphery. The central portion of the wound was packed with saline gauze. The patient tolerated the procedure well and returned to recovery room in stable condition. Nitish Siddiqui MD
--- NOTE | 2018-09-06 08:44 | DS ---
The patient was admitted to the hospital with a chief complaint of pelvic and groin abscess. The patient was on IV antibiotics . Wound culture revealed . ID consult was called. The patient showed gradual improvement. Discharged to be follow up as outpatient. . Viviane Diehl MD
== END 2018-08-29 13:26 | disposition home or self-care (01) | DRG 570 ==
LOC: C.ER 14:04 → C.9E 17:04 → C.5S 19:24 → C.3T 08-02 09:57 → C.5S 08-08 22:42
PROVIDERS: ADMIT Internal Medicine Pulmonary Disease; ATTEND Internal Medicine Pulmonary Disease
PROC: 0W9H0ZZ Drainage of Retroperitoneum, Open Approach (ICD-10-PCS; 2018-08-02)
PROC: 0H89XZZ Division of Perineum Skin, External Approach (ICD-10-PCS; 2018-08-02)
PROC: 0JB70ZZ Excision of Back Subcutaneous Tissue and Fascia, Open Approach (ICD-10-PCS; principal; 2018-08-02 12:30)
PROC: 05HC33Z Insertion of Infusion Device into Left Basilic Vein, Percutaneous Approach (ICD-10-PCS; 2018-08-04)
PROC: 0J9C0ZZ Drainage of Pelvic Region Subcutaneous Tissue and Fascia, Open Approach (ICD-10-PCS; 2018-08-05)
PROC: 0D9P0ZZ Drainage of Rectum, Open Approach (ICD-10-PCS; 2018-08-05)
PROC: 0JXC0ZZ Transfer Pelvic Region Subcutaneous Tissue and Fascia, Open Approach (ICD-10-PCS; 2018-08-05)
PROC: 0D9P0ZZ Drainage of Rectum, Open Approach (ICD-10-PCS; 2018-08-09)
PROC: 0J9C0ZZ Drainage of Pelvic Region Subcutaneous Tissue and Fascia, Open Approach (ICD-10-PCS; 2018-08-09)
PROC: 0JXC0ZZ Transfer Pelvic Region Subcutaneous Tissue and Fascia, Open Approach (ICD-10-PCS; 2018-08-09)
PROC: 02HV33Z Insertion of Infusion Device into Superior Vena Cava, Percutaneous Approach (ICD-10-PCS; 2018-08-19)
PROC: 0HR9XK3 Replacement of Perineum Skin with Nonautologous Tissue Substitute, Full Thickness, External Approach (ICD-10-PCS; 2018-08-20)
PROC: 0JB70ZZ Excision of Back Subcutaneous Tissue and Fascia, Open Approach (ICD-10-PCS; 2018-08-20)
PROC: 0D9P0ZZ Drainage of Rectum, Open Approach (ICD-10-PCS; 2018-08-20)
PROC: 0JD73ZZ Extraction of Back Subcutaneous Tissue and Fascia, Percutaneous Approach (ICD-10-PCS; 2018-08-28)
DX: L02.214 Cutaneous abscess of groin (principal); K68.19 Other retroperitoneal abscess; K61.1 Rectal abscess; L03.314 Cellulitis of groin; K60.5 Anorectal fistula; N73.9 Female pelvic inflammatory disease, unspecified; L73.2 Hidradenitis suppurativa; K58.2 Mixed irritable bowel syndrome; F43.23 Adjustment disorder with mixed anxiety and depressed mood; F41.1 Generalized anxiety disorder; J45.909 Unspecified asthma, uncomplicated; D25.9 Leiomyoma of uterus, unspecified; F17.210 Nicotine dependence, cigarettes, uncomplicated; B96.5 Pseudomonas (aeruginosa) (mallei) (pseudomallei) as the cause of diseases classified elsewhere; B96.20 Unspecified Escherichia coli [E. coli] as the cause of diseases classified elsewhere; B96.4 Proteus (mirabilis) (morganii) as the cause of diseases classified elsewhere; B96.1 Klebsiella pneumoniae [K. pneumoniae] as the cause of diseases classified elsewhere; Z16.12 Extended spectrum beta lactamase (ESBL) resistance; Z88.1 Allergy status to other antibiotic agents; Z88.0 Allergy status to penicillin; Z91.013 Allergy to seafood; Z87.01 Personal history of pneumonia (recurrent); Z90.49 Acquired absence of other specified parts of digestive tract; Z81.8 Family history of other mental and behavioral disorders

== ENCOUNTER 2018-09-25 14:56 | Inpatient (IN) | payer BC | END 2018-10-09 17:48 | disposition home or self-care (01) | LOC: C.ER 14:56 → C.SDS 16:36 → C.9E 17:35 → C.5S 19:42 ==